=== PATIENT | male | born 1950 | race Caucasian/White ===

== ENCOUNTER 2024-05-15 13:12 | Emergency (ER) | payer MEDICARE, SELFPAY ==
[2024-05-15 13:31] VITALS: BP 168/97; PULSE 70; TEMP 36.8; O2SAT 94; BMI 24.4
[2024-05-15 15:16] LABS: Basophils Absolute Auto 0.1 10^3/uL (0.0-0.1); Basophils Percent Auto 1.2 % (0.2-2.0); Eosinophils Absolute Auto 0.2 10^3/uL (0.0-0.7); Eosinophils Percent Auto 2.3 % (0.9-7.0); Hemoglobin 12.5 g/dL (14.0-18.0); Immature Granulocytes Abs Auto 0.01 10^3/uL (0.00-0.03); Immature Granulocytes Pct Auto 0.2 % (0.0-0.5); Lymphocytes Absolute Auto 2.1 10^3/uL (1.2-3.8); Lymphocytes Percent Auto 32.3 % (20.5-60.0); Mean Corpuscular HGB Conc 33.8 g/dL (29.9-35.2); Mean Corpuscular Hemoglobin 32.6 pg (25.9-34.0); Mean Corpuscular Volume 96.4 fL (80.0-94.0); Mean Platelet Volume 10.3 fL (9.5-13.5); Monocytes Absolute Auto 0.5 10^3/uL (0.3-0.8); Monocytes Percent Auto 7.7 % (1.7-12.0); Neutrophils Absolute Auto 3.7 10^3/uL (1.4-6.5); Neutrophils Percent Auto 56.3 % (43.0-75.0); Platelet Count 270 10^3/uL (150-450); Red Blood Count 3.84 10^6/uL (4.70-6.10); Red Cell Distribution Width 14.6 % (11.0-15.0); White Blood Count 6.5 10^3/uL (4.0-11.0)
[2024-05-15 16:16] LABS: Alanine Aminotransferase 19 U/L (16-63); Albumin Globulin Ratio 0.8; Albumin Level 3.6 g/dL (3.4-5.0); Alkaline Phosphatase 155 U/L (46-116); Anion Gap 13.6; Aspartate Amino Transferase 21 U/L (15-37); Bilirubin Total 0.6 mg/dL (0.2-1.0); Calcium 9.3 mg/dL (8.5-10.1); Chloride 104 mmol/L (98-107); Estimated GFR (African America >60 (>=60); Estimated GFR (Non-African Ame >60 (>=60); Globulin 4.4 g/dL; Glucose 87 mg/dL (74-106); Potassium 4.6 mmol/L (3.5-5.1); Sodium 140 mmol/L (136-145)
--- NOTE | 2024-05-15 16:22 | CT_ITS ---
[address] [address] Patient Name: ROLDAN COTE MRN: [id number] date: 1950 Sex: M Assigned Patient Location: ER Current Patient Location: [facility] Accession/Order Number: [id number] Exam Date: 05/15/2024 16:42 Report Date: 05/15/2024 18:09 At the request of: MICHOACANO ESCOBAR Procedure: CT abdomen pelvis w con CT ABDOMEN AND PELVIS WITH CONTRAST: INDICATION: Rectal bleeding. COMPARISON: None. TECHNIQUE: Helical CT images of the abdomen and pelvis were obtained after the administration of intravenous contrast. Dose reduction techniques were achieved by using automated exposure control and/or adjustment of mA and/or kV according to patient size and/or use of iterative reconstruction technique. FINDINGS: The study is somewhat limited due to motion. LOWER CHEST: There is a 7 mm left lower lobe pulmonary nodule on image 4 series 3. There is mild bibasilar atelectasis and there is moderate cardiomegaly. There are mild interstitial lung abnormalities at the lung bases with possible mild fibrosis particularly in the lingula where there is also traction bronchiectasis. LIVER: Moderate diffuse fatty infiltration. GALLBLADDER AND BILIARY SYSTEM: Normal. SPLEEN: Normal. PANCREAS: Normal. ADRENAL GLANDS: Normal. KIDNEYS AND URETERS: Normal left kidney. Mild to moderate scarring in the lower pole of the right kidney anteriorly. VASCULATURE: Moderate atherosclerotic calcification of the aorta and iliac arteries. RETROPERITONEUM AND LYMPH NODES: Normal, with no lymphadenopathy. GASTROINTESTINAL TRACT/MESENTERY: Small hiatal hernia. The bowel loops are normal in caliber. There is mild diverticulosis in the sigmoid colon with no acute diverticulitis. There is evidence of abnormal enhancement and wall thickening in the right lateral rectal wall, image 117 series 3 and image 64 series 5 with a possible mass measuring approximately 2.6 x 3 x 1.8 cm. Normal mesentery/peritoneum. Normal appendix. BLADDER: Normal. REPRODUCTIVE SYSTEM: Normal prostate. BODY WALL: Normal. BONES: There are bulky anterior osteophytes in the lumbar spine and there are bridging anterior osteophytes in the thoracic spine consistent with DISH. There is no acute osseous abnormality. CT/CT abdomen pelvis w con IMPRESSION: 1. Findings suspicious for a rectal mass/possible malignancy. Recommend follow-up colonoscopy. 2. Cardiomegaly. 3. 7 mm left lower lobe pulmonary nodule. Interstitial lung abnormalities are also noted in the visualized lung bases. Recommend follow-up chest CT. 4. Small hiatal hernia. 5. Fatty liver. 6. Right renal cortical scarring. 7. Mild colonic diverticulosis. Electronically authenticated by: ONIEL BORJA Date: 05/15/2024 18:09
--- NOTE | 2024-05-15 16:23 | ED_ITS ---
HPI HPI - General Adult General Chief complaint: Abdominal Pain Stated complaint: BLOOD IN STOOL Time Seen by Provider: 05/15/24 14:50 Mode of arrival: walk-in Limitations: no limitations History of Present Illness HPI narrative: Patient is a 73-year-old male who presents to the emergency department for 2-day history of rectal bleeding. Patient's roommate apparently reported to a family member that he was bleeding out which concerned her to bring him to the ER. He is on Eliquis daily. He has an appointment tomorrow with his PCP. He has not had any fevers, chills, nausea, vomiting, abdominal pain. He has never had a colonoscopy. Related Data Previous Rx's ?Medication ?Instructions ?Recorded docusate sodium 100 mg capsule 100 mg PO BID #20 caps 05/15/24 (Colace) Allergies Allergy/AdvReac Type Severity Reaction Status Date / Time No Known Drug Allergies Allergy Verified 05/15/24 13:30 Opioid HPI Opioid Management Most Recent Opioid Data: No Data to Display Review of Systems ROS Constitutional Denies: fever or chills Ears, nose, mouth, and throat Denies: throat pain Cardiovascular Denies: chest pain Respiratory Denies: shortness of breath or cough Gastrointestinal Reports: blood in stool; Denies: abdominal pain, nausea, vomiting or diarrhea Musculoskeletal Denies: back pain Integumentary/Breast Denies: rash Neurological Denies: headache Hematologic/Lymphatic Reports: easy bruising and easy bleeding Exam Narrative Exam Narrative: Gen.: Awake, alert, in no distress Head: Normocephalic, atraumatic ENT: Moist mucous membranes Respiratory: No respiratory distress, lungs clear bilaterally Cardio: Regular rate and rhythm Gastrointestinal: Abdomen is soft, nondistended and nontender to palpation Rectal: Rectal exam performed with Cassandra Freed RN at bedside throughout the duration of the exam. Small external hemorrhoid noted with no active bleeding per rectum. Dried blood noted between the buttocks Extremities: Moves extremities equally Psych: Normal mood and affect Neuro: No focal neuro deficit Skin: Warm, dry, intact Constitutional Vital Signs, click to edit/add: Last Vital Signs Temp 98.2 F 05/15/24 13:31 Pulse 70 05/15/24 13:31 Resp 18 05/15/24 13:31 BP 168/97 H 05/15/24 13:31 Pulse Ox 94 L 05/15/24 13:31 O2 Del Method Room Air 05/15/24 13:31 Course Vital Signs Vital signs: Vital Signs Temperature 98.2 F 05/15/24 13:31 Pulse Rate 70 05/15/24 13:31 Respiratory Rate 18 05/15/24 13:31 Blood Pressure 168/97 H 05/15/24 13:31 Pulse Oximetry 94 L 05/15/24 13:31 Oxygen Delivery Method Room Air 05/15/24 13:31 Temperature 98.2 F 05/15/24 13:31 Pulse Rate 70 05/15/24 13:31 Respiratory Rate 18 05/15/24 13:31 Blood Pressure 168/97 H 05/15/24 13:31 Pulse Oximetry 94 L 05/15/24 13:31 Oxygen Delivery Method Room Air 05/15/24 13:31 Medical Decision Making MDM Narrative Medical decision making narrative: Patient with no complaints of abdominal pain, he is hemodynamically stable in the ER with a stable hemoglobin of 12.5. He was sent for CT of the abdomen and pelvis with IV contrast showing a 2.6 cm mass in the right lateral rectal wall which will require follow-up colonoscopy. I discussed this with Dr. Wakefield, patient does not require admission at this time. He has no massive hemorrhage in the emergency department. Patient can follow-up with his primary care provider tomorrow, follow-up with general s urgery after his appointment. He can have an outpatient colonoscopy discussed in the next several days with general surgery. Return to the ER if symptoms change or worsen. SUPERVISED APC VISIT, PHYSICIAN ATTESTATION: Based on the medical record the care appears appropriate. ? Medical Records Medical records reviewed: Yes I reviewed the patient's medical records Lab Data Lab results reviewed: Yes I reviewed the patient's lab results Labs: Lab Results 05/15/24 Range/Units 15:08 WBC 6.5 (4.0-11.0) 10^3/uL RBC 3.84 L (4.70-6.10) 10^6/uL Hgb 12.5 L (14.0-18.0) g/dL Hct 37.0 L (42.0-54.0) % MCV 96.4 H (80.0-94.0) fL MCH 32.6 (25.9-34.0) pg MCHC 33.8 (29.9-35.2) g/dL RDW 14.6 (11.0-15.0) % Plt Count 270 (150-450) 10^3/uL MPV 10.3 (9.5-13.5) fL Neut % (Auto) 56.3 (43.0-75.0) % Lymph % (Auto) 32.3 (20.5-60.0) % [place] % (Auto) 7.7 (1.7-12.0) % Eos % (Auto) 2.3 (0.9-7.0) % Baso % (Auto) 1.2 (0.2-2.0) % Neut # (Auto) 3.7 (1.4-6.5) 10^3/uL Lymph # (Auto) 2.1 (1.2-3.8) 10^3/uL [place] # (Auto) 0.5 (0.3-0.8) 10^3/uL Eos # (Auto) 0.2 (0.0-0.7) 10^3/uL Baso # (Auto) 0.1 (0.0-0.1) 10^3/uL Abs Immat Gran (auto) 0.01 (0.00-0.03) 10^3/uL Imm/Tot Granulo (auto) 0.2 (0.0-0.5) % PT 10.7 (9.0-11.6) sec INR 1.01 Sodium 140 (136-145) mmol/L Potassium 4.6 (3.5-5.1) mmol/L Chloride 104 (98-107) mmol/L Carbon Dioxide 27.0 (21.0-32.0) mmol/L Anion Gap 13.6 BUN 13.0 (7.0-18.0) mg/dL Creatinine 0.81 (0.70-1.30) mg/dL Est GFR ( Amer) >60 (>=60) Est GFR (Non-Af Amer) >60 (>=60) BUN/Creatinine Ratio 16.0 Glucose 87 (74-106) mg/dL Lactate 0.7 (0.4-2.0) mmol/L Calcium 9.3 (8.5-10.1) mg/dL Total Bilirubin 0.6 (0.2-1.0) mg/dL AST 21 (15-37) U/L ALT 19 (16-63) U/L Alkaline Phosphatase 155 H (46-116) U/L Total Protein 8.0 (6.4-8.2) g/dL Albumin 3.6 (3.4-5.0) g/dL Globulin 4.4 g/dL Albumin/Globulin Ratio 0.[address] scan - abdomen: Attestation: I have reviewed the pertinent imaging results. Radiologist's impression: ITS Impressions Abdomen/Pelvis CT 05/15/24 16:22 IMPRESSION: 1. Findings suspicious for a rectal mass/possible malignancy. Recommend follow-up colonoscopy. 2. Cardiomegaly. 3. 7 mm left lower lobe pulmonary nodule. Interstitial lung abnormalities are also noted in the visualized lung bases. Recommend follow-up chest CT. 4. Small hiatal hernia. 5. Fatty liver. 6. Right renal cortical scarring. 7. Mild colonic diverticulosis. Electronically authenticated by: ONIEL BORJA Date: 05/15/2024 17:53 Discharge Plan Discharge Stand Alone Forms: Portal Instructions Chief Complaint: Abdominal Pain Clinical Impression: Rectal bleeding, Rectal mass Patient Disposition: Home, Self-Care Time of Disposition Decision: 18:04 Condition: Good Prescriptions / Home Meds: New docusate sodium [Colace] 100 mg capsule 100 mg PO BID Qty: 20 0RF Print Language: Yi Instructions: Rectal Bleeding (ED) Additional Instructions: Please see your doctor tomorrow to resume your medications and call Dr. Wakefield's office to schedule with him for a colonoscopy -Please take the colace to avoid straining and constipation, this will reduce rectal bleeding -You may see rectal bleeding for the next several days, if you are bleeding so heavily that you feel lightheaded or dizzy or short of breath, please return to the emergency room Referrals: [facility] [place] [Primary Care Provider] - 1 week Armen Wakefield DO [Physician] - As soon as possible
[2024-05-15 16:36] LABS: INR 1.01; Prothrombin Time 10.7 sec (9.0-11.6)
[2024-05-15 16:43] LABS: Lactate/Lactic Acid 0.7 mmol/L (0.4-2.0)
== END 2024-05-15 18:17 | disposition home or self-care (01) ==
PROVIDERS: Physician Assistant; Emergency Provider Emergency Medicine
DX: K62.5 Hemorrhage of anus and rectum (principal); K62.9 Disease of anus and rectum, unspecified; Z79.01 Long term (current) use of anticoagulants
CPT/HCPCS: 36415; 74177; 80053; 83605; 85025; 85610; 99285; Q9967

== ENCOUNTER 2024-06-15 11:41 | Outpatient (OUT) | payer MEDICARE, SELFPAY | END 2024-06-15 11:42 | disposition home or self-care (01) | LOC: PST 11:41 | PROVIDERS: Visit Provider Surgery | DX: Z01.818 Encounter for other preprocedural examination (principal) ==

== ENCOUNTER 2024-06-20 06:21 | Day surgery (SDC) | payer MEDICARE, SELFPAY ==
--- OUTSIDE RECORDS SUMMARY | 2024-06-20 06:25 | XMS_ITS | CCD ---
Author Organization [facility] Care Team Providers Care Computer Equipment Repairer Name Role Phone KAMALJIT SILVA Primary Care Unavailable MISC, DOCTOR Primary Care Unavailable SAVANNAH HERNÁNDEZ Admitting Unavailable SAVANNAH HERNÁNDEZ Attending Unavailable BLAIR KOCH Consulting Unavailable GRAHAM LINN V Consulting Unavailable MARKERROHIT Consulting Unavailable SAVANNAH HERNÁNDEZ Consulting Unavailable GIBRAN WAY Consulting Unavailable Chelsy Rosales CNP Primary Care Provider NING CAMARENA Attending Unavailable Allergies Allergy Classification Reported Allergen(s) Allergy Type Date of Onset Reaction(s) Facility (1 source) -No Known Enviornmental Allergies; Translations: [-No Known Enviornmental Allergies] Allergy to substance 12-07-2018 [facility] Work Phone: Medications Current Medications Medication Drug Class(es) Dates Sig (Normalized) Sig (Original) amiodarone hydrochloride 200 mg oral tablet (1 source) Antiarrhythmic Start: 12-07-2018 Amiodarone HCl 200MG Oral Tablet 12/07/2018 Provider: fluticasone (1 source) Corticosteroid Start: 12-07-2018 [facility] Fluticasone Propionate 50MCG/ACT Nasal Suspension 12/07/2018 Provider: levETIRAcetam 500 mg oral tablet (1 source) Start: 12-07-2018 levETIRAcetam 500MG Oral Tablet 12/07/2018 Provider: Magnesium (1 source) Start: 12-07-2018 Magnesium 250MG Oral Tablet 12/07/2018 Provider: Problems Active Problems Problem Classification Problem Date Documented Date Episodic/Chronic Alcohol-related disorders (1 source) Alcohol abuse with intoxication, unspecified; Translations: [ALCOHOL ABUSE WITH INTOXICATION UNS] Onset: 0 Chronic Cardiac dysrhythmias (1 source) Cardiac dysrhythmias; Translations: [CHRONIC ATRIAL FIBRILLATION UNSPEC] Onset: 0 Disorders of lipid metabolism (1 source) Hyperlipidemia, unspecified; Translations: [HYPERLIPIDEMIA UNSPECIFIED] Onset: 0 Chronic Disorders of lipid metabolism (1 source) Pure hypercholesterolemia, unspecified; Translations: [PURE HYPERCHOLESTEROLEMIA UNSPEC] Onset: 0 Essential hypertension (1 source) Essential (primary) hypertension; Translations: [ESSENTIAL PRIMARY HYPERTENSION] Onset: 0 Chronic External cause codes: Fall (1 source) Unspecified fall, initial encounter; Translations: [UNSPECIFIED FALL INITIAL ENCOUNTER] Onset: 0 External cause codes: Unspecified (1 source) Blood alcohol level of 240 mg/100 ml or more; Translations: [BLOOD ALCOHOL LV 240 MG/100 ML/MORE] Onset: 0 Fracture of upper limb (1 source) Displaced fracture of lateral end of left clavicle, initial encounter for closed fracture; Translations: [DSPL FX LAT LT CLAV INITIAL CLOS FX] Onset: 0 Episodic Immunizations and screening for infectious disease (1 source) Encounter for immunization; Translations: [ENCOUNTER FOR IMMUNIZATION] Onset: 0 Episodic Other aftercare (1 source) jail (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; Translations: [CLINICAL REHABILITATION SPECIALIST CURRENT USE OF ASPIRIN] Onset: 0 Episodic Other aftercare (1 source) Other penitentiary (current) drug therapy; Translations: [OTH CLINICAL REHABILITATION SPECIALIST CURRENT DRUG THERAPY] Onset: 0 Episodic Other non-traumatic joint disorders (3 sources) Pain in left shoulder; Translations: [PAIN IN LEFT SHOULDER] Onset: 0 Episodic Other nutritional; endocrine; and metabolic disorders (1 source) Obesity, unspecified; Translations: [OBESITY UNSPECIFIED] Onset: 0 Chronic Other nutritional; endocrine; and metabolic disorders (1 source) Body mass index (BMI) 25.0-25.9, adult; Translations: [BODY MASS INDEX BMI 25.0-25.9 ADULT] Onset: 0 Episodic Superficial injury; contusion (1 source) Contusion of other part of head, initial encounter; Translations: [CONTUS OTH PRT HEAD INITIAL ENCNTR] Onset: 0 Episodic Past or Other Problems Problem Classification Problem Date Documented Da te Episodic/Chronic Other nutritional; endocrine; and metabolic disorders (1 source) Finding of body mass index; Translations: [Body mass index [BMI]] Onset: 12-07-2018 Episodic Results Test Name Value Interpretation Reference Range Facil ity CNOVon 06-16-2021 CNOV Office Visit (NREUS2) ROLDAN VELASQUEZ ([id number]) 1950 M Date Time Provider Department 06/16/21 4:30 PM JEAN CHRISTIAN [id number] During your visit today, we recorded the following information about you: Pulse Blood pressure Weight Height 113/minute 134/85 83.6 kg 1.778 m Jean Christian MD 06/24/2021 1:19 PM Signed [facility] - FOLLOW UP EVALUATION I had the pleasure of seeing Mr. Velasquez for follow up today. He is a 70 year old left-handed male with a history of tremors since 1949. He is seen with a sister. Subjective Previous Plan 07/23/2020- 61 year old year old man with with life-long history of alcoholism and psychiatric problems (generalized anxiety disorder) who is presenting for follow-up of tremor after a long hiatus. He is presenting because of his sister's (his only caregiver) insistence on seeking care. He continues to imbibe and he stopped sertraline 50 mg PO QD because of perceived sedation. He takes naltrexone rarely, as per his recollection. ? His action tremor is greatly augmented by anxiety/alcohol withdrawal. ? he had two episodes of LOC but without tonic-clonic movements/post-ictal confusion (syncopal episodes vs alcohol withdrawal seizures). ? I feel it is best to seek psychiatric care first for alcohol withdrawal under medical supervision and to address anxiety. I feel that his tremor should be re-evaluated once sober and I can possibly start treatment at that point if applicable. ? I emphasized follow-up with Dr. Nath and discussed possibility of [facility]patient [facility] admission for alcohol withdrawal. ? I provided him with phone number for [facility] support coordinator. he also had a chance to speak with Ms. Sage ([facility]NR social science analyst). ? Follow-up with me once he is sober and has adequate control of psychiatric symptoms. Interval History Patient reports doing well, still with tremor, worse some days than other days. Denies not being able to do things despite tremor. Had alcohol rehab for 10 days after last appointment. Doing better, cut down to 1 beer every couple days. Has dog now which makes him go on walks to [place] and less going to the bar Mood: Good! Denies RBD. Sense of smell is pretty good Constipation: occasionally Denies issues with thinking and memory. Lives by self. Manages own adls. Reports never having tried medications specifically to address tremors. Not currently on beat blockade. Does have hypertension. In addition, the following activities of daily living that may be affected by tremors were evaluated: Speaking: No Feeding: No Bringing Liquids to Mouth: No Hygiene: No Dressing: No Writing: No Working: No Depression: PQH-9 = 3 usually representing no significant (0-4) depression. Anxiety: JORDANA-7 = 2 usually representing no significant (0-4) anxiety. Finally, the following table shows the patient's overall global physical and mental health using the PROMIS scale: PROMIS-10 Office Visit from 06/16/2021 in [facility] Visit from 07/22/2020 in [facility] Global Physical Health T Score 57.7 44.9 Global Mental Health T Score 43.5 41.1 0-10 Standard Pain Scale 5 5 *PROMIS-10 scoring scale: mean = 50, over 50 is above average, under 50 is below average Movement Disorders Medications Schedule - as of the start of the visit: ALLERGIES No Known Allergies Current Outpatient Medications Medication Sig - Losartan-hydroCHLORO thiazide 100-12.5 mg per tablet Take 1 tablet by mouth once daily. - multivitamin/iron/fo lic acid (CENTRUM ORAL) Take by mouth. - aspirin, enteric coated (ASPIRIN, ENTERIC COATED) 81 mg EC tablet Take 81 mg by mouth. - atorvastatin (LIPITOR) 20 mg tablet Take 20 mg by mouth once daily. - DILT-XR 120 mg 24 hr capsule Take 120 mg by mouth once daily. - thiamine (VITAMIN B1) 100 mg tablet Take 100 mg by mouth once daily. - pantoprazole DR (PROTONIX) 40 mg tablet Take 40 mg by mouth once daily. - naltrexone HCl (NALTREXONE ORAL) Take 50 mg by mouth once daily. - vitamin B complex (B COMPLEX ORAL) Take by mouth once daily. - sertraline (ZOLOFT) 50 mg tablet Take 0.5 tablets by mouth once daily. - folic acid 0.8 mg cap Take by mouth. No current facility-administere d medications for this visit. Objective Vital Signs: BP 134/85 (BP Site: Left Arm, BP Position: Sitting, BP Cuff Size: Regular Adult) Pulse 113 Ht 177.8 cm (5' 10 ) Wt 83.6 kg (184 lb 6.4 oz) SpO2 99% BMI 26.46 kg/m? General Physical Examination: General appearance: Awake, alert, interactive, no acute distress, good nutritional status, normal development, well-groomed Skin: Rash: absent Pigmentation: absent HEENT: Head: normocephalic, no dysmorphism Eyes: normal Oropharynx: normal Neck: Carotid bruit: absent Movements: free Lymphadenopathy: absent Extre (more content not included)... Normal [facility] CT CSPINE WO CONon 0 CT CSPINE WO CON EXAMINATION: CT CSPINE WO CON HISTORY: Head injury. COMPARISON: CT cervical spine from January 20, 2017. TECHNIQUE: CT Cervical spine without IV contrast. Coronal and sagittal reformations were performed. Dose reduction techniques were achieved by using automated exposure control and/or adjustment of mA and/or kV according to patient size and/or use of iterative reconstruction technique. FINDINGS: No acute fracture or traumatic subluxation within the cervical spine. The atlanto-occipital interval is normal. The facets are anatomically aligned. No prevertebral soft tissue swelling is present. There are degenerative endplate changes, anterior-posterior spondylitic ridging and facet arthropathy. The lung apices are clear. IMPRESSION: No acute fracture or traumatic subluxation within the cervical spine. Electronically authenticated by: GIBRAN WAY Date: 2020-06-04 23:44 Normal [facility] CT HEAD WO CONon 06-05-2020 CT HEAD WO CON EXAMINATION: CT HEAD WO CON HISTORY: UNSPECIFIED INJURY OF HEAD, INITIAL ENCOUNTER COMPARISON: 01/20/2017 TECHNIQUE: Axial CT images were created with IV contrast. Dose reduction techniques were achieved by using automated exposure control and/or adjustment of mA and/or kV according to patient size and/or use of iterative reconstruction technique. FINDINGS: BRAIN: Age-appropriate atrophy is present, without visible acute hemorrhage or lesion. CSF SPACES: No hydrocephalus, subarachnoid hemorrhage, or mass. Appropriate for age. SKULL: No fracture, mass, or other significant visible lesion. SINUSES: No significant mucosal thickening or fluid on the limited views. ORBITS: No appreciable abnormality on the limited views. OTHER: Left frontal extracranial hematoma IMPRESSION: No acute intracranial abnormality Left frontal extracranial hematoma Electronically authenticated by: GRAHAM LINN Date: 2020-06-04 22:07 Normal [facility] XR CHEST 1 Von 06-05-2020 XR CHEST 1 V EXAMINATION: XR CHEST 1 V HISTORY: Altered mental status COMPARISON: 05/17/2019 TECHNIQUE: Portable FINDINGS: LUNGS: Low lung volumes. No new focal parenchymal opacities. VASCULATURE: No increased pulmonary vasculature. PLEURA: No pneumothorax, effusion, or pleural thickening. CARDIAC: No cardiomegaly or cardiac silhouette abnormality. MEDIASTINUM: Prominent mediastinum BONES: Moderate spondylosis OTHER: Negative. IMPRESSION: Prominent mediastinum possibly related to technique and rotation. Consider PA and lateral for further evaluation Electronically authenticated by: GRAHAM LINN Date: 2020-06-04 22:13 Normal [facility] XR PELVIS 1_2 VIEWSon 2019 XR PELVIS 1_2 VIEWS EXAMINATION: XR PELVIS 1_2 VIEWS HISTORY: Altered mental status COMPARISON: No relevant comparison available. FINDINGS: BOWEL GAS PATTERN: No abnormal dilation or deviation. CALCIFICATIONS: None significant. OTHER: No acute fracture. Mild bilateral hip osteoarthropathy. Mild spondylosis of the spine IMPRESSION: No definite acute fracture Electronically authenticated by: GRAHAM LINN Date: 2020-06-04 22:16 Normal [facility] XR SHOULDER LT 2V or >on XR SHOULDER LT 2V or > PROCEDURE: XR SHOULDER LT 2V or > COMPARISON: Chest x-ray 05/17/2019 HISTORY: Altered mental status FINDINGS: BONES:Lucency through the distal clavicle consistent with an acute fracture. Underlying chronic fracture of the left mid clavicle, stable. No dislocation. SOFT TISSUES:Negative. No visible soft tissue swelling. EFFUSION:None visible. OTHER: Negative. IMPRESSION: Acute fracture of the distal left clavicle Electronically authenticated by: GRAHAM LINN Date: 2020-06-04 22:15 Normal [facility] CARDIAC SHANE ADMITon 020 CK [Catalytic activity/Vol] 84 U/L Normal 55-170 [facility] Comment on above: Performed By: #### C HARINI WEST, JESSICA #### [facility] [address] [place] [address] Marielena Keller CK.MB [Mass/Vol] 1.08 ng/mL Normal <=2.37 [facility] Comment on above: Performed By: #### C HARINI WEST CMADM #### [facility] [address] [place] [address] Marielenaemma Keller INR Coag (Bld) [Relative time] SEE BELOW Normal [facility] Comment on above: Result Comment: <0.0 34 ng/ml NEGATIVE 0.034-0.119 INDETERMINATE 0.120 AMI CUT OFF Performed By: #### C HARINI WEST, CMAKODAK #### [facility] [address] [place] [address] Marielena Arianna KWABENA 58.0 ng/mL Normal <=121.0 [facility] Comment on above: Performed By: #### C HARINI WEST, CMAKODAK #### [facility] [address] [place], [place] [id number] Marielena Arianna TROP <0.012 Normal <=0.034 [facility] Comment on above: Performed By: #### C HARINI WEST, CMAKODAK #### [facility] [address] [place], [place] [id number] Marielena Arianna CBC AUTO DIFFon 06-04-2020 Basophils (Bld) [#/Vol] 0.1 103/ul Normal 0.0-0.1 [facility] Comment on above: Performed By: #### C BC #### [facility] [address] [place] [address] Marielena Arianna Basophils/100 WBC (Bld) 1.5 % Normal 0.2-2.0 [facility] Comment on above: Performed By: #### C BC #### [facility] [address] [id number] Marielena Arianna Eosinophils (Bld) [#/Vol] 0.1 103/ul Normal 0.0-0.7 [facility] Comment on above: Performed By: #### C BC #### [facility] [address] [place], [place] [id number] Marielena Arianna Eosinophils/100 WBC (Bld) 2.6 % Normal 0.9-7.0 [facility] Comment on above: Performed By: #### C BC #### [facility] [address] [place], [place] [id number] Marielena Arianna Erythrocyte distribution width (RBC) [Ratio] 13.3 % Normal 11.0-15.0 [facility] Comment on above: Performed By: #### C BC #### [facility] [address] [place], [place] [id number] Marielena Arianna Hematocrit (Bld) [Volume fraction] 39.5 % Critically low 42.0-54.0 [facility] Comment on above: Performed By: #### C BC #### [facility] [address] [place], [place] [id number] Marielena Arianna Hemoglobin (Bld) [Mass/Vol] 13.3 g/dL Critically low 14.0-18.0 [facility] Comment on above: Performed By: #### C BC #### [facility] [address] [place], [place] [address] Marielena Arianna IG # 0.02 10e3/ul Normal 0.00-0.03 [facility] Comment on above: Performed By: #### C BC #### [facility] [address] [place] [address] Marielena Arianna IG % 0.4 % Normal 0.0-0.5 [facility] Comment on above: Performed By: #### C BC #### [facility] [address] [place], [place] [id number] Marielena Arianna Lymphocytes (Bld) [#/Vol] 1.7 103/ul Normal 1.2-3.8 [facility] Comment on above: Performed By: #### C BC #### [facility] [address] [place], [place] [address] Marielena Arianna Lymphocytes/100 WBC (Bld) 38.0 % Normal 20.5-60.0 [facility] Comment on above: Performed By: #### C BC #### [facility] [address] [place], [place] [address] Marielena Arianna MANUAL DIFF REQ NO Normal [facility] Comment on above: Performed By: #### C BC #### [facility] [address] [place], [place] [address] Marielena Arianna MCH (RBC) [Entitic mass] 32.1 pg Normal 25.9-34.0 [facility] Comment on above: Performed By: #### C BC #### [facility] [address] [place] [address] Marielena Arianna MCHC (RBC) [Mass/Vol] 33.7 g/dL Normal 29.9-35.2 [facility] Comment on above: Performed By: #### C BC #### [facility] [address] [place] [address] Marielena Arianna MCV (RBC) [Entitic vol] 95.4 fL Critically high 80.0-94.0 [facility] Comment on above: Performed By: #### C BC #### [facility] [address] [place] [address] Marielena Arianna Monocytes (Bld) [#/Vol] 0.6 103/ul Normal 0.3-0.8 [facility] Comment on above: Performed By: #### C BC #### [facility] [address] [place] [address] Marielena Arianna Monocytes/100 WBC (Bld) 13.7 % Critically high 1.7-12.0 [facility] Comment on above: Performed By: #### C BC #### [facility] [address] [place] [address] Marielena Arianna Neutrophils (Bld) [#/Vol] 2.0 103/ul Normal 1.4-6.5 [facility] Comment on above: Performed By: #### C BC #### [facility] [address] [place], [place] [id number] Marielena Keller Neutrophils/100 WBC (Bld) 43.8 % Normal 43.0-75.0 [facility] Comment on above: Performed By: #### C BC #### [facility] [address] [place], [place] [id number] Marielenaemma Keller Platelet mean volume (Bld) [Entitic vol] 10.4 fL Normal 9.5-13.5 [facility] Comment on above: Performed By: #### C BC #### [facility] [address] [place], [place] [phone] Marielenaemma Keller Platelets (Bld) [#/Vol] 141 103/ul Critically low 150-450 [facility] Comment on above: Performed By: #### C BC #### [facility] [address] [place], [place] [phone] Marielenaemma Keller RBC (Bld) [#/Vol] 4.14 106/ul Critically low 4.70-6.10 [facility] Comment on above: Performed By: #### C BC #### [facility] [address] [place], [place] [address] Marielenaemma Keller WBC (Bld) [#/Vol] 4.5 103/ul Normal 4.0-11.0 [facility] Comment on above: Performed By: #### C BC #### [facility] [address] [place], [place] [id number] Marielena Arianna ETHANOL (BLD ALC)on 06-04-20 20 Ethanol [Mass/Vol] NOTE: 80 mg/dl is the legal limit for a blood alcohol level Normal [facility] Comment on above: Performed By: #### C HARINI WEST CMADM #### [facility] [address] [place], [place] [phone] Marielena Arianna Ethanol [Mass/Vol] 347 mg/dL Normal [facility] Comment on above: Performed By: #### C HARINI WEST CMAKODAK #### [facility] [address] [place], [place] [id number] Marielena Keller PROF 14(COMP METB)on 020 Albumin [Mass/Vol] 3.5 g/dL Normal 3.5-5.0 [facility] Comment on above: Performed By: #### C HARINI WEST CMADM #### [facility] [address] [id number] Marielena Keller Albumin/Globulin [Mass ratio] 0.9 {ratio} Normal [facility] Comment on above: Performed By: #### C HARINI WEST CMADM #### [facility] [address] [address] Marielena Arianna ALP [Catalytic activity/Vol] 54 U/L Normal 38-126 [facility] Comment on above: Performed By: #### C HARINI WEST CMADM #### [facility] [address] [address] Marielena Arianna ALT [Catalytic activity/Vol] 109 U/L Critically high 21-72 [facility] Comment on above: Performed By: #### C HARINI WEST CMADM #### [facility] [address] [address] Marielena Arianna Anion gap [Moles/Vol] 14.5 mmol/L Normal [facility] Comment on above: Performed By: #### C HARINI WEST CMADM #### [facility] [address] [id number] Marielena Arianna AST [Catalytic activity/Vol] 128 U/L Critically high 17-59 [facility] Comment on above: Performed By: #### C HARINI WEST CMADM #### [facility] [address] [address] Marielena Arianna Bilirubin Ql (U) 0.3 mg/dL Normal 0.2-1.3 [facility] Comment on above: Performed By: #### C HARINI WEST CMADM #### [facility] [address] [phone] Marielena Arianna Calcium [Mass/Vol] 8.5 mg/dL Normal 8.4-10.2 [facility] Comment on above: Performed By: #### C HARINI WEST CMADM #### [facility] [address] [address] Marielena Arianna Chloride [Moles/Vol] 102 mmol/L Normal 98-107 [facility] Comment on above: Performed By: #### C HARINI WEST, CMADM #### [facility] [address] [address] Marielena Arianna CO2 [Moles/Vol] 25.2 mmol/L Normal 22.0-30.0 [facility] Comment on above: Performed By: #### C HARINI WEST, CMADM #### [facility] [address] [address] Marielena Arianna Creatinine [Mass/Vol] 0.87 mg/dL Normal 0.66-1.25 [facility] Comment on above: Performed By: #### C HARINI WEST, CMADM #### [facility] [address] [place] [address] Marielena Arianna EGFR-AF AUSTRALIAN >60 Normal >=60 [facility] Comment on above: Performed By: #### C HARINI WEST, CMADM #### [facility] [address] [place] [address] Marielena Arianna EGFR-NON AF AUSTRALIAN >60 Normal >=60 [facility] Comment on above: Performed By: #### C HARINI WEST, CMADM #### [facility] [address] [place] [address] Marielena Arianna Globulin (S) [Mass/Vol] 3.7 g/dL Normal [facility] Comment on above: Performed By: #### C HARINI WEST, CMADM #### [facility] [address] [place] [address] Marielena Arianna Glucose [Mass/Vol] 107 mg/dL Critically high 74-106 [facility] Comment on above: Performed By: #### C HARINI WEST, CMADM #### [facility] [address] [place] [address] Marielena Arianna Potassium [Moles/Vol] 3.7 mmol/L Normal 3.4-5.0 [facility] Comment on above: Performed By: #### C HARINI WEST, CMADM #### [facility] [address] [place], [place] [address] Marielena Arianna Protein [Mass/Vol] 7.2 g/dL Normal 6.1-8.2 [facility] Comment on above: Performed By: #### C MP, ETH, CMADM #### [facility] [address] [place], [place] [address] Marielena Arianna Sodium [Moles/Vol] 138 mmol/L Normal 137-145 [facility] Comment on above: Performed By: #### C MP, ETH, CMADM #### [facility] [address] [place], [place] [address] Marielena Arianna Urea nitrogen [Mass/Vol] 11.0 mg/dL Normal 9.0-20.0 [facility] Comment on above: Performed By: #### C MP, ETH, CMADM #### [facility] [address] [place], [place] [address] Marielena Arianna Urea nitrogen/Creatinine [Mass ratio] 12.6 mg/mg Normal [facility] Comment on above: Performed By: #### C MP, ETH, CMADM #### [facility] [address] [place], [place] [address] Marielena Arianna Vital Signs Date Time Vital Sign Value Performing Clinician Mohit amado 12-07-2018 16:37-0400 Body height 177.8 cm Chelsy Rosales SONIYA Work Phone: [facility] Work Phone: 12-07-2018 16:37-0400 Body mass index (BMI) [Ratio] 25.9 kg/m2 Chelsy Rosales SONIYA Work Phone: [facility] Work Phone: 12-07-2018 16:37-0400 Body surface area Derived from formula 2 m2 Chelsy Conniearcenio BYRNES Work Phone: [facility] Work Phone: 12-07-2018 16:37-0400 Body temperature 96.6 [degF] Chelsy Sanduskyarcenio BYRNES Work Phone: [facility] Work Phone: 12-07-2018 16:37-0400 Body weight 81.76 kg Chelsy Rosales CNP Work Phone: [facility] Work Phone: 12-07-2018 16:37-0400 Diastolic blood pressure 80 mm[Hg] Chelsy Rosales CNP Work Phone: [facility] Work Phone: 12-07-2018 16:37-0400 Heart rate 54 /min Chelsy Rosales CNP Work Phone: [facility] Work Phone: 12-07-2018 16:37-0400 SaO2% (BldA) [Mass fraction] 98 % Chelsy Rosales CNP Work Phone: [facility] Work Phone: 12-07-2018 16:37-0400 Systolic blood pressure 130 mm[Hg] Chelsy Rosales CNP Work Phone: [facility] Work Phone: Encounters Encounter Date Encounter Type Care Provider Facility Start: 06-05-2024 End: 06-05-2024 ambulatory [facility] CAMARENA Not Available Start: 06-05-2020 End: 06-05-2020 Patient encounter procedure [facility] Facility: Start: 04-25-2019 End: 04-26-2019 Emergency department patient visit [facility] Start: 12-07-2018 End: 12-07-2018 FQ visit new patient Wendi Katz [employer] DRIVER/GUIDE Work Phone: [facility] Work Phone: Procedures Date Procedure Procedure Detail Performing Clinician Start: 12-07-2018 HYPERTENSION (SYSTEMIC) Chelsy Rosales CNP Work Phone: Start: 12-07-2018 Operative procedure on ankle Chelsy Rosales CNP Work Phone: Start: 12-07-2018 Operative procedure on hand Chelsy Rosales CNP Work Phone: Start: 12-07-2018 Surgical procedure Levar Rosales [employer] DRIVER/GUIDE Work Phone: Payers Date Payer Category Payer Medicare [id number] 1961 Unknown [id number] 1950 Unknown [id number] 1950 Unknown [id number] 1950 Unknown [id number] Medicare 1 - Medicare [facility] PPS 2V [id number] Social History Date Type Detail Facility Assertion Finding of alcoh ol intake (finding) [facility] Work Phone: Assertion Gender identity finding (finding) [facility] Work Phone: Assertion Heterosexual (finding) [facility] [employer] [facility] Work Phone: Assertion Recovering alcoholic [facility] Work Phone: Assertion Finding of sexua l orientation (finding) [facility] Work Phone: Tobacco smoking status Unknown if ever smoked [facility] Work Phone: NEGATED: Highlighted row Assertion Exposure to pollution (event) [facility] Work Phone: NEGATED: Highlighted row Assertion Tobacco user (finding) [facility] Work Phone: NEGATED: Highlighted row Assertion Finding relating to drug misuse behavior (finding) [facility] Work Phone: Progress note 06-16-2021 Note Date & Type Note Facility 06-16-2021 Note HNO ID: [id number] Author: Jean Christian MD Service: ? Author Type: Physician Type: Progress Notes Filed: 06/24/2021 1:19 PM Note Text: [facility] - FOLLOW UP EVALUATION I had the pleasure of seeing Mr. Velasquez for follow up today. He is a 70 year old left-handed male with a history of tremors since 1949. He is seen with a sister. Subjective Previous Plan 07/23/2020- 61 year old year old man with with life-long history of alcoholism and psychiatric problems (generalized anxiety disorder) who is presenting for follow-up of tremor after a long hiatus. He is presenting because of his sister's (his only caregiver) insistence on seeking care. He continues to imbibe and he stopped sertraline 50 mg PO QD because of perceived sedation. He takes naltrexone rarely, as per his recollection. ? His action tremor is greatly augmented by anxiety/alcohol withdrawal. ? he had two episodes of LOC but without tonic-clonic movements/post-ictal confusion (syncopal episodes vs alcohol withdrawal seizures). ? I feel it is best to seek psychiatric care first for alcohol withdrawal under medical supervision and to address anxiety. I feel that his tremor should be re-evaluated once sober and I can possibly start treatment at that point if applicable. ? I emphasized follow-up with Dr. Nath and discussed possibility of in-patient [facility] admission for alcohol withdrawal. ? I provided him with phone number for [facility] support coordinator. he also had a chance to speak with Ms. Sage ([facility] social science analyst). ? Follow-up with me once he is sober and has adequate control of psychiatric symptoms. Interval History Patient reports doing well, still with tremor, worse some days than other days. Denies not being able to do things despite tremor. Had alcohol rehab for 10 days after last appointment. Doing better, cut down to 1 beer every couple days. Has dog now which makes him go on walks to [place] [employer] and less going to the bar Mood: Good! Denies RBD. Sense of smell is pretty good Constipation: occasionally Denies issues with thinking and memory. Lives by self. Manages own adls. Reports never having tried medications specifically to address tremors. Not currently on beat blockade. Does have hypertension. In addition, the following activities of daily living that may be affected by tremors were evaluated: Speaking: No Feeding: No Bringing Liquids to Mouth: No Hygiene: No Dressing: No Writing: No Working: No Depression: PQH-9 = 3 usually representing no significant (0-4) depression. Anxiety: JORDANA-7 = 2 usually representing no significant (0-4) anxiety. Finally, the following table shows the patient's overall global physical and mental health using the PROMIS scale: PROMIS-10 Office Visit from 06/16/2021 in [facility] Visit from 07/22/2020 in [facility] Global Physical Health T Score 57.7 44.9 Global Mental Health T Score 43.5 41.1 0-10 Standard Pain Scale 5 5 *PROMIS-10 scoring scale: mean = 50, over 50 is above average, under 50 is below average Movement Disorders Medications Schedule - as of the start of the visit: ALLERGIES No Known Allergies Current Outpatient Medications Medication Sig - Losartan-hydroCHLOROthiazide 100-12.5 mg per tablet Take 1 tablet by mouth once daily. - multivitamin/iron/folic acid (CENTRUM ORAL) Take by mouth. - aspirin, enteric coated (ASPIRIN, ENTERIC COATED) 81 mg EC tablet Take 81 mg by mouth. - atorvastatin (LIPITOR) 20 mg tablet Take 20 mg by mouth once daily. - DILT-XR 120 mg 24 hr capsule Take 120 mg by mouth once daily. - thiamine (VITAMIN B1) 100 mg tablet Take 100 mg by mouth once daily. - pantoprazole DR (PROTONIX) 40 mg tablet Take 40 mg by mouth once daily. - naltrexone HCl (NALTREXONE ORAL) Take 50 mg by mouth once daily. - vitamin B complex (B COMPLEX ORAL) Take by mouth once daily. - sertraline (ZOLOFT) 50 mg tablet Take 0.5 tablets by mouth once daily. - folic acid 0.8 mg cap Take by mouth. No current facility-administered medications for this visit. Objective Vital Signs: BP 134/85 (BP Site: Left Arm, BP Position: Sitting, BP Cuff Size: Regular Adult) Pulse 113 Ht 177.8 cm (5' 10 ) Wt 83.6 kg (184 lb 6.4 oz) SpO2 99% BMI 26.46 kg/m? General Physical Examination: General appearance: Awake, alert, interactive, no acute distress, good nutritional status, normal development, well-groomed Skin: Rash: absent Pigmentation: absent HEENT: Head: normocephalic, no dysmorphism Eyes: normal Oropharynx: normal Neck: Carotid bruit: absent Movements: free Lymphadenopathy: absent Extremities: Deformity/contracture: absent Distal pulses: present Edema: absent Trophic change: absent Spine: Deformity: absent Heart: Regular S1 S2 normal Lungs: Clear to auscultation Abdomen: Soft, nontender General Neurological Examination: (more content not included)... [facility] Evaluation note Note Date & Type Note Facility Evaluation note Assessments not supported for this document typeNo Assessments Recorded [facility] Work Phone: History of Present illness Narrative Note Date & Type Note Facility History of Present illness Narrative History of Present Illness not supported for this document typeNo History of Present Illness Recorded [facility] Work Phone: Instructions Note Date & Type Note Facility Instructions Instructions not supported for this document typeNo Instructions Recorded [facility] Work Phone: Patient problem outcome Narrative Note Date & Type Note Facility Patient problem outcome Narrative Includes: Evaluations & Outcomes for active GoalsNo Outcomes Recorded [facility] Work Phone: Review of systems Narrative - Reported Note Date & Type Note Facility Review of systems Narrative - Reported Review of Systems not supported for this document typeNo Review of Systems Recorded [facility] Work Phone: Summary Purpose Family History No Family History Records Found Description Last Updated Maternal history of type 2 diabetes ria itus 12/07/2018 Advance Directives No Advanced Directives Records FoundNo Advanced Directives Records FoundNo Advanced Directives Records Found Includes: Current Advance Directives No Advance Directives RecordedNo Advanced Directives Records Found Physical Exam Physical Exam not supported for this document type No Physical Exam Recorded Additional Source Comments (unrecognized sect ion and content) No Status Records FoundNo Status Records FoundNo Status Records FoundNo Status Records Found INFORMATION SOURCE (unrecogn ized section and content) DATE CREATED AUTHOR 04/27/2019 [facility] DATE CREATED AUTHOR AUTHOR'S ORGANIZ ATION 06/12/2020 [facility] DATE CREATED AUTHOR AUTHOR'S ORGANIZ ATION 11/05/2021 [facility] DATE CREATED AUTHOR AUTHOR'S ORGANIZ ATION 06/06/2024 [facility] EPIC FOR RECORDS PERTAINING TO PATIENTS WHO ARE OR HAVE BEEN ENROLLED IN A CHEMICAL DEPENDENCY/SUBSTANCEABUSE PROGRAM, SOME INFORMATION MAY BE OMITTED. This clinical summary was aggregated from multiple sources. Caution should be exercised in using it in the provision of clinical care. This summary normalizes information from multiple sources, and as a consequence, information in this document may materially change the coding, format and clinical context of patient data. In addition, data may be omitted in some cases. CLINICAL DECISIONS SHOULD BE BASED ON THE PRIMARY CLINICAL RECORDS. [facility] [employer] [facility]. provides no warranty or guarantee of the accuracy or completeness of information in this document.
[2024-06-20 07:00] VITALS: BP 177/94; PULSE 76; TEMP 35.9; O2SAT 98; BMI 31.9
[2024-06-20] MEDS: LACTATED RINGER'S SOLUTION 1,000 ML 50 ML IV (07:19)
[2024-06-20 08:30] VITALS: BP 123/83; PULSE 87; TEMP 36.2; O2SAT 97
--- NOTE | 2024-06-20 08:40 | W.PM.PROCNOT ---
Date of procedure: 06/20/24 Pre-op diagnosis: change in bowel habits, blood per rectum Post-op diagnosis: other (rectal mass at approx 10-12cm from anal verge, sigmoid diverticulosis ) Procedure: Previous colonoscopy: never procedure: diagnostic colonoscopy, rectal mass biopsy The patient was given IV conscious sedation.? The patient's SPO2 remained above 90% throughout the procedure. The colonoscope was inserted per rectum and advanced under direct vision to the cecum without difficulty.? The prep was good.? Findings: Terminal ileum os: normal Cecum/Ascending colon: normal Transverse colon: normal Descending/Sigmoid colon: sigmoid diverticulosis Rectum/Anus: examined in normal and retroflexed positions, large 2cm flat mass with friable edges and areas of bleeding, cold forcep biopsies taken in multiple spots on the lesion, approx 10-12cm from anal verge Withdrawal Time was (minutes): 15 The colon was decompressed and the scope was removed.? The patient tolerated the procedure well. Recommendations/Plan: 1.? Lifestyle and dietary modifications as discussed 2.? F/U Biopsies 3.? F/U in 10 days in office to discuss surgical needs for rectal mass 4.? Discussed with the family Anesthesia: MAC Surgeon: Armen Wakefield Estimated blood loss (mL): 5 Pathology: other (rectal mass biopsies) Condition: stable Disposition: PACU
[2024-06-20 08:45] VITALS: BP 152/84; PULSE 71; O2SAT 95
[2024-06-20 08:59] VITALS: BP 143/76; PULSE 75; O2SAT 98
== END 2024-06-20 09:00 | disposition home or self-care (01) ==
PROVIDERS: Visit Provider Surgery
PROC: (CPT 45380; principal; 2024-06-20 07:55)
DX: C20 Malignant neoplasm of rectum (principal); R19.4 Change in bowel habit; K62.5 Hemorrhage of anus and rectum; K57.30 Diverticulosis of large intestine without perforation or abscess without bleeding; Z79.01 Long term (current) use of anticoagulants; I48.91 Unspecified atrial fibrillation; E78.5 Hyperlipidemia, unspecified; I10 Essential (primary) hypertension
CPT/HCPCS: 45380; 88305; J2704

== ENCOUNTER 2024-07-11 10:36 | Outpatient (OUT) | payer MEDICARE, SELFPAY ==
--- OUTSIDE RECORDS SUMMARY | 2024-07-11 10:48 | XMS_ITS | CCD ---
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 Role Phone KAMALJIT SILVA Primary Care Unavailable MISC, DOCTOR Primary Care Unavailable SAVANNAH HERNÁNDEZ Admitting Unavailable SAVANNAH HERNÁNDEZ Attending Unavailable BLAIR KOCH Consulting Unavailable GRAHAM LINN V Consulting Unavailable MARKER, ROHIT Consulting Unavailable SAVANNAH HERNÁNDEZ Consulting Unavailable SAMARTINE GIBRAN Consulting Unavailable Chelsy Rosales CNP Primary Care Provider DO Ning Wakefield Attending Provider Ning Wakefield Attending Unavailable Ning Wakefield Admitting Unavailable NING WAKEFIELD Attending Unavailable NING WAKEFIELD Attending Unavailable Phil MINAYA, [facility] Primary Care Provide r CLEM GALLARDO Attending Unavailable NING WAKEFIELD Referring Unavailable Allergies Allergy Classification Reported Allergen(s) Allergy Type Date of Onset Reaction(s) Facility (1 source) -No Known Enviornmental Allergies; Translations: [-No Known Enviornmental Allergies] Allergy to substance 12-07-2018 [facility] Work Phone: Medications Current Medications Medication Drug Class(es) Dates Sig (Normalized) Sig (Original) acetaminophen 325 mg oral tablet (1 source) Start: 7 take 650 mg by mouth every six hours Acetaminophen Active 650 MG PO Q6H 100 30 July 08, 2017 12:00am amiodarone hydrochloride 200 mg oral tablet (2 sources) Antiarrhythmic Start: 7 Amiodarone HCl 200MG Oral Tablet 12/07/2018 Provider: apixaban 5 mg oral tablet (3 sources) Factor Xa Inhibitor take 1 tablet by mouth in the morning Eliquis 5 MG tablet Take 5 mg by mouth in the morning and 5 mg before bedtime. Active ascorbic acid 500 mg oral tablet (1 source) Vitamin C Start: 7 take 1 tablet by mouth twice daily at mealtime Ascorbic Acid (Vitamin C) (Vitamin C) 500 mg Tablet Active 500 MG PO Twice daily with meals 60 July 08, 2017 12:00am atorvastatin 20 mg oral tablet (3 sources) HMG-CoA Reductase Inhibitor take 2 tablets by mouth once daily atorvastatin (Lipitor) 20 MG tablet Take 40 mg by mouth Daily Active calcium carbonate 1250 mg / cholecalciferol 200 unt oral tablet (1 source) Vitamin D Start: 7 take 1 tablet by mouth once at mealtime Calcium Carbonate-Vitamin D3 (Oyster Shell Calcium-Vit D3) 500 mg(1,250mg) -200 unit Tablet Active 1 TAB PO 3x/Day with meals 90 July 08, 2017 12:00am 24 hr dilTIAZem hydrochloride 120 mg extended release oral capsule (3 sources) Calcium Channel Elly Start: 3 take 1 capsule by mouth once daily, then take 1 capsule by mouth every twenty-four hours Cardizem CD 120 MG 24 hr capsule Take 120 mg by mouth Daily 06/29/2023 Active docusate sodium 100 mg oral capsule (3 sources) Start: 4 take 1 capsule by mouth in the morning docusate sodium (Colace) 100 MG capsule Take 100 mg by mouth in the morning and 100 mg before bedtime. 05/15/2024 Active fluticasone (1 source) Corticosteroid Start: 9 [facility] Fluticasone Propionate 50MCG/ACT Nasal Suspension 12/07/2018 Provider: folic acid 1 mg oral tablet (1 source) Start: 7 take 1 mg by mouth once daily Folic Acid Active 1 MG PO Daily 60 July 08, 2017 12:00am hydroCHLOROthiazide 12.5 mg / losartan potassium 100 mg oral tablet (3 sources) Thiazide Diuretic, Angiotensin 2 Receptor Elly take 1 tablet by mouth once daily losartan-hydroCHL OROthiazide (Hyzaar) 100-12.5 MG tablet Take 1 tablet by mouth Daily Active levETIRAcetam 500 mg oral tablet (1 source) Start: 9 levETIRAcetam 500MG Oral Tablet 12/07/2018 Provider: Magnesium (1 source) Start: 9 Magnesium 250MG Oral Tablet 12/07/2018 Provider: magnesium oxide 400 mg oral tablet (1 source) Start: 7 take 400 mg by mouth twice daily Magnesium Oxide Active 400 MG PO Twice daily 60 July 08, 2017 12:00am Multivitamin With Folic Acid (Thera) 400 mcg Tablet (1 source) Start: 7 take 1 tablet by mouth once daily Multivitamin With Folic Acid (Thera) 400 mcg Tablet Active 1 TAB PO Daily 30 July 08, 2017 12:00am Dibble (No Known Home Meds) (1 source) Start: 7 Dibble (No Known Home Meds) Active June 29, 2017 12:00am thiamine 100 mg oral tablet (1 source) Start: 7 take 1 tablet by mouth twice daily Thiamine Hcl (Vitamin B1) (Vitamin B-1) 100 mg Tablet Active 100 MG PO Twice daily 60 July 08, 2017 12:00am Problems Active Problems Problem Classification Problem Date Documented Date Episodic/Chronic Acute cerebrovascular disease (2 sources) Hemorrhage into subarachnoid space of neuraxis; Translations: [Nontraumatic subarachnoid hemorrhage, unspecified] 06-17-2017 Chronic Alcohol-related disorders (3 sources) Alcohol abuse with intoxication, unspecified; Translations: [Alcohol withdrawal delirium] Onset: 0 06-17-2017 Chronic Cancer of rectum and anus (2 sources) Adenocarcinoma of rectum; 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] 06-28-2024 Chronic Cardiac dysrhythmias (2 sources) Atrial fibrillation; Translations: [Unspecified atrial fibrillation] 06-17-2017 Chronic Cardiac dysrhythmias (1 source) Bradycardia; Translations: [Bradycardia, unspecified] 07-01-2017 Episodic Cardiac dysrhythmias (1 source) Cardiac dysrhythmias; Translations: [CHRONIC ATRIAL FIBRILLATION UNSPEC] Onset: 0 Disorders of lipid metabolism (1 source) Hyperlipidemia, unspecified; Translations: [HYPERLIPIDEMIA UNSPECIFIED] Onset: 0 Chronic Disorders of lipid metabolism (1 source) Pure hypercholesterolemia, unspecified; Translations: [PURE HYPERCHOLESTEROLEMIA UNSPEC] Onset: 0 Essential hypertension (2 sources) Essential (primary) hypertension; Translations: [Hypertensive disorder] Onset: 0 06-18-2017 Chronic External cause codes: Fall (1 source) Unspecified fall, initial encounter; Translations: [UNSPECIFIED FALL INITIAL ENCOUNTER] Onset: 0 External cause codes: Unspecified (1 source) Blood alcohol level of 240 mg/100 ml or more; Translations: [BLOOD ALCOHOL LV 240 MG/100 ML/MORE] Onset: 0 Fracture of upper limb (5 sources) Displaced fracture of lateral end of left clavicle, initial encounter for closed fracture; Translations: [Closed fracture of the medial epicondyle of humerus] Onset: 0 06-18-2017 Episodic Immunizations and screening for infectious disease (1 source) Encounter for immunization; Translations: [ENCOUNTER FOR IMMUNIZATION] Onset: 0 Episodic Nausea and vomiting (1 source) Vomiting; Translations: [Vomiting, unspecified] 07-01-2017 Episodic Other aftercare (1 source) penitentiary (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; Translations: [[facility]I CURRENT USE OF ASPIRIN] Onset: 0 Episodic Other aftercare (1 source) Other group home (current) drug therapy; Translations: [OTH BALE SEWER CURRENT DRUG THERAPY] Onset: 0 Episodic Other fractures (1 source) Fracture of sixth cervical vertebra; Translations: [Unspecified displaced fracture of sixth cervical vertebra, initial encounter for closed fracture] 06-07-2017 Episodic Other fractures (1 source) Fracture of rib; Translations: [Fracture of one rib, unspecified side, initial encounter for closed fracture] 06-07-2017 Episodic Other non-traumatic joint disorders (3 sources) Pain in left shoulder; Translations: [PAIN IN LEFT SHOULDER] Onset: 0 Episodic Other nutritional; endocrine; and metabolic disorders (1 source) Obesity, unspecified; Translations: [OBESITY UNSPECIFIED] Onset: 0 Chronic Other nutritional; endocrine; and metabolic disorders (1 source) Body mass index (BMI) 25.0-25.9, adult; Translations: [BODY MASS INDEX BMI 25.0-25.9 ADULT] Onset: 0 Episodic Residual codes; unclassified (1 source) Delirium; Translations: [Disorientation, unspecified] 06-17-2017 Episodic Residual codes; unclassified (1 source) Current drinker; Translations: [Other specified health status] 06-17-2017 Episodic Residual codes; unclassified (1 source) Patient encounter status; Translations: [Encounter for prophylactic measures, unspecified] 06-30-2017 Episodic Skull and face fractures (1 source) Zygomatic fracture, unspecified side, initial encounter for closed fracture; Translations: [Fracture of zygomatic arch] 06-07-2017 Episodic Superficial injury; contusion (1 source) Contusion of other part of head, initial encounter; Translations: [CONTUS OTH PRT HEAD INITIAL ENCNTR] Onset: 0 Episodic Unclassified (2 sources) New Patient; Translations: [New Patient] Onset: 4 Past or Other Problems Problem Classification Problem Date Documented Da te Episodic/Chronic Other nutritional; endocrine; and metabolic disorders (1 source) Finding of body mass index; Translations: [Body mass index [BMI]] Onset: 12-07-2018 Episodic Results Test Name Value Interpretation Reference Range Facil ity Office Visiton 06-30-2024 Follow-up visit [id number] Roldan Velasquez 1950 M Date Provider Department Center 06/30/2024 375-CLEM GALLARDO [facility] No family history on file Level of Service:93603 [place] OFFICE/OUTPATIENT NEW MODERATE MDM 45 MINUTES (GC) Reason for Visit and Comments: 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 Normal [facility] 06-20-2024 L Specimen: [id number] Received: 06/20/24 Status: CECILIA Garza Num: [id number] Spec Type: Surgical Subm Dr: Ning Wakefield DO Tissues: A Colon Biopsy (RECTAL MASS BX AT 5CM) Procedures: HE/4, Gross/Micro L4 Age/ Patient Sex Location Account Attending Physician Roldan Velasquez 73/M [facility] [id number] Ning Wakefield DO SPEC NUM: [id number] RECD: 06/20/24 STATUS: CECILIA GARZA NUM: [id number] ANITA: 06/20/[address]: Ning Wakefield DO ENTERED: 06/20/[address]: Luana Brown SPEC TYPE: Surgical DEPT: [facility]ER PER[facility] ENTERED BY: [id number] RECV BY: [id number] ORDERED: HE/, Gross/Micro L4 ORDERED: , Gross/Micro L4 Pathological Diagnosis Rectal mass biopsy and 5 cm: Poorly differentiated adenocarcinoma infiltrating into the submucosa. Clinical Information Rectal mass biopsy of 5 cm Gross Description The specimen is received in formalin with the patient's name and rectal mass biopsy at 5 cm and consists of multiple carter portions of soft tissue measuring 0.7 x 0.5 x 0.1 cm in aggregate. The specimen is filtered entirely submitted cassette A1. CPT Codes 88 305 Specimen: [id number] Received: 06/20/24 Status: CECILIA Garza Num: [id number] Spec Type: Surgical Subm Dr: Ning Wakefield DO Tissues: A Colon Biopsy (RECTAL MASS BX AT 5CM) Procedures: /4, Gross/Micro L4 Patient: TimurRoldan [id number] (Continued) Signed (signature on file) Mumtaz Amor MD 06/22/24 1845 Normal [facility] CNOVon 06-16-2021 CNOV Office Visit (NREUS2) ROLDAN VELASQUEZ ([id number]) 1950 M Date Time Provider Department 06/16/21 [...] male with a history of tremors since 1950. He is seen with a sister. Subjective [...] provided him with phone number for [employer] medical staff credentialing coordinator. he also had a chance to speak with Ms. Sage ([employer] social studies department chair). ? Follow-up with me once he is [...] which makes him go on walks to [employer] and less going to the bar Mood: [...] PROMIS-10 Office Visit from 06/16/2021 in [facility] Office Visit from 07/22/2020 [facility] T Score 57.7 44.9 [...] absent Extre (more content not included)... Normal [facility] CT [facility] CONon [address] [facility] CON EXAMINATION: CT [facility] CON HISTORY: Head injury. COMPARISON: CT cervical [...] GIBRAN WAY Date: 2020-06-04 23:44 Normal [facility] CT HEAD WO CONon 06-05-2020 CT HEAD [...] by: GRAHAM LINN Date: 2020-06-04 22:07 Normal [facility] XR CHEST 1 Von 06-05-2020 [...] by: GRAHAM LINN Date: 2020-06-04 22:13 Normal [facility] XR PELVIS 1_2 VIEWSon 2019 [...] by: GRAHAM LINN Date: 2020-06-04 22:16 Normal [facility] XR SHOULDER LT 2V or [...] GRAHAM LINN Date: 2020-06-04 22:15 Normal [facility] CARDIAC SHANE ADMITon 020 CK [Catalytic activity/Vol] 84 U/L Normal 55-170 [facility] Comment on above: Performed By: #### C HARINI WEST, CMADM #### [facility] [address] [place] [address] Marielena Keller CK.MB [Mass/Vol] 1.08 ng/mL Normal <=2.37 [facility] Comment on above: Performed By: #### C HARINI WEST, CMADM #### [facility] [address] [place] [address] Marielenaemma Keller INR Coag (Bld) [Relative time] SEE BELOW Normal [facility] Comment on above: Result Comment: <0.0 34 ng/ml NEGATIVE 0.034-0.119 INDETERMINATE 0.120 AMI CUT OFF Performed By: #### C HARIIN WEST, CMADM #### [facility] [address] [place] [address] Marielena Arianna KWABENA 58.0 ng/mL Normal <=121.0 [facility] Comment on above: Performed By: #### C HARINI WEST, CMADM #### [facility] [address] [place] [address] Marielena Arianna TROP <0.012 Normal <=0.034 [facility] Comment on above: Performed By: #### C HARINI WEST, CMADM #### [facility] [address] [place], [place] [id number] Marielena Arianna CBC AUTO DIFFon 06-04-2020 Basophils (Bld) [#/Vol] 0.1 103/ul Normal 0.0-0.1 [facility] Comment on above: Performed By: #### C BC #### [facility] [address] [place] [address] Marielena Arianna Basophils/100 WBC (Bld) 1.5 % Normal 0.2-2.0 [facility] Comment on above: Performed By: #### C BC #### [facility] [address] [place] [address] Marielena Arianna Eosinophils (Bld) [#/Vol] 0.1 103/ul Normal 0.0-0.7 [facility] Comment on above: Performed By: #### C BC #### [facility] [address] [place] [address] Marielena Arianna Eosinophils/100 WBC (Bld) 2.6 % Normal 0.9-7.0 [facility] Comment on above: Performed By: #### C BC #### [facility] [address] [place] [address] Marielena Arianna Erythrocyte distribution width (RBC) [Ratio] 13.3 % Normal 11.0-15.0 [facility] Comment on above: Performed By: #### C BC #### [facility] [address] [place] [address] Marielena Arianna Hematocrit (Bld) [Volume fraction] 39.5 % Critically low 42.0-54.0 [facility] Comment on above: Performed By: #### C BC #### [facility] [address] [place] [address] Marielena Arianna Hemoglobin (Bld) [Mass/Vol] 13.3 g/dL Critically low 14.0-18.0 [facility] Comment on above: Performed By: #### C BC #### [facility] [address] [place] [address] Marielena Arianna IG # 0.02 10e3/ul Normal 0.00-0.03 [facility] Comment on above: Performed By: #### C BC #### [facility] [address] [place] [address] Marielena Arianna IG % 0.4 % Normal 0.0-0.5 [facility] Comment on above: Performed By: #### C BC #### [facility] [address] [place] [address] Marielena Arianna Lymphocytes (Bld) [#/Vol] 1.7 103/ul Normal 1.2-3.8 [facility] Comment on above: Performed By: #### C BC #### [facility] [address] [place], [place] [id number] Marielena Arianna Lymphocytes/100 WBC (Bld) 38.0 % Normal 20.5-60.0 [facility] Comment on above: Performed By: #### C BC #### [facility] [address] [place], [place] [id number] Mairelena Arianna MANUAL DIFF REQ NO Normal [facility] Comment on above: Performed By: #### C BC #### [facility] [address] [place], [place] [id number] Marielena Arianna MCH (RBC) [Entitic mass] 32.1 pg Normal 25.9-34.0 [facility] Comment on above: Performed By: #### C BC #### [facility] [address] [place], [place] [id number] Marielenaemma Zafaren MCHC (RBC) [Mass/Vol] 33.7 g/dL Normal 29.9-35.2 [facility] Comment on above: Performed By: #### C BC #### [facility] [address] [place], [place] [id number] Marielenaemma Zafaren MCV (RBC) [Entitic vol] 95.4 fL Critically high 80.0-94.0 [facility] Comment on above: Performed By: #### C BC #### [facility] [address] [place], [place] [id number] Marielena Arianna Monocytes (Bld) [#/Vol] 0.6 103/ul Normal 0.3-0.8 [facility] Comment on above: Performed By: #### C BC #### [facility] [address] [place], [place] [id number] Marielena Arianna Monocytes/100 WBC (Bld) 13.7 % Critically high 1.7-12.0 [facility] Comment on above: Performed By: #### C BC #### [facility] [address] [place], [place] [id number] Marielena Arianna Neutrophils (Bld) [#/Vol] 2.0 103/ul Normal 1.4-6.5 [facility] Comment on above: Performed By: #### C BC #### [facility] [address] [place], [place] [id number] Marielena Arianna Neutrophils/100 WBC (Bld) 43.8 % Normal 43.0-75.0 [facility] Comment on above: Performed By: #### C BC #### [facility] [address] [place], [place] [id number] Marielena Arianna Platelet mean volume (Bld) [Entitic vol] 10.4 fL Normal 9.5-13.5 [facility] Comment on above: Performed By: #### C BC #### [facility] [address] [place], [place] [id number] Marielena Arianna Platelets (Bld) [#/Vol] 141 103/ul Critically low 150-450 [facility] Comment on above: Performed By: #### C BC #### [facility] [address] [place], [place] [id number] Marielena Arianna RBC (Bld) [#/Vol] 4.14 106/ul Critically low 4.70-6.10 [facility] Comment on above: Performed By: #### C BC #### [facility] [address] [place], [place] [id number] Marielena Arianna WBC (Bld) [#/Vol] 4.5 103/ul Normal 4.0-11.0 [facility] Comment on above: Performed By: #### C BC #### [facility] [address] [place], [place] [id number] Marielena Arianna ETHANOL (BLD ALC)on 06-04-20 20 Ethanol [Mass/Vol] NOTE: 80 mg/dl is the legal limit for a blood alcohol level Normal [facility] Comment on above: Performed By: #### C HARINI WEST CMADM #### [facility] [address] [place], [place] [id number] Marielena Arianna Ethanol [Mass/Vol] 347 mg/dL Normal [facility] Comment on above: Performed By: #### C MP, ETH, CMADM #### [facility] [address] [id number] Marielena Arianna PROF 14(COMP METB)on 020 Albumin [Mass/Vol] 3.5 g/dL Normal 3.5-5.0 [facility] Comment on above: Performed By: #### C JENNA, HARINI, CMADM #### [facility] [address] [id number] Marielena Arianna Albumin/Globulin [Mass ratio] 0.9 {ratio} Normal [facility] Comment on above: Performed By: #### C JENNA, HARINI, CMADM #### [facility] [address] [address] Marielena Arianna ALP [Catalytic activity/Vol] 54 U/L Normal 38-126 [facility] Comment on above: Performed By: #### C JENNA, HARINI, CMADM #### [facility] [address] [address] Marielena Arianna ALT [Catalytic activity/Vol] 109 U/L Critically high 21-72 [facility] Comment on above: Performed By: #### C JENNA, HARINI, CMADM #### [facility] [address] [place], [place] [id number] Marielena Arianna Anion gap [Moles/Vol] 14.5 mmol/L Normal [facility] Comment on above: Performed By: #### C JENNA, HARINI, CMADM #### [facility] [address] [address] Marielena Arianna AST [Catalytic activity/Vol] 128 U/L Critically high 17-59 [facility] Comment on above: Performed By: #### C JENNA, ETH, CMADM #### [facility] [address] [id number] Marielena Arianna Bilirubin Ql (U) 0.3 mg/dL Normal 0.2-1.3 [facility] Comment on above: Performed By: #### C JENNA, ETH, CMADM #### [facility] [address] [id number] Marielena Arianna Calcium [Mass/Vol] 8.5 mg/dL Normal 8.4-10.2 [facility] Comment on above: Performed By: #### C HARINI WEST CMAKODAK #### [facility] [address] [place] [address] Marielena Arianna Chloride [Moles/Vol] 102 mmol/L Normal 98-107 [facility] Comment on above: Performed By: #### C HARINI WEST, CMADM #### [facility] [address] [place] [address] Marielena Arianna CO2 [Moles/Vol] 25.2 mmol/L Normal 22.0-30.0 [facility] Comment on above: Performed By: #### C HARINI WEST CMADM #### [facility] [address] [place] [address] Marielena Arianna Creatinine [Mass/Vol] 0.87 mg/dL Normal 0.66-1.25 [facility] Comment on above: Performed By: #### C HARINI WEST CMADM #### [facility] [address] [place] [address] Marielena Arianna EGFR-AF KITTITIAN >60 Normal >=60 [facility] Comment on above: Performed By: #### C HARINI WEST CMADM #### [facility] [address] [place] [address] Marielena Arianna EGFR-NON AF KITTITIAN >60 Normal >=60 [facility] Comment on above: Performed By: #### C HARINI WEST CMADM #### [facility] [address] [place] [address] Amrielena Arianna Globulin (S) [Mass/Vol] 3.7 g/dL Normal [facility] Comment on above: Performed By: #### C HARINI WEST CMADM #### [facility] [address] [place] [address] Marielena Arianna Glucose [Mass/Vol] 107 mg/dL Critically high 74-106 [facility] Comment on above: Performed By: #### C HARINI WEST, CMADM #### [facility] [address] [place] [address] Marielena Arianna Potassium [Moles/Vol] 3.7 mmol/L Normal 3.4-5.0 [facility] Comment on above: Performed By: #### C HARINI WEST CMADM #### [facility] [address] [place] [address] Marielena Arianna Protein [Mass/Vol] 7.2 g/dL Normal 6.1-8.2 [facility] Comment on above: Performed By: #### C HARINI WEST CMADM #### [facility] [address] [place] [address] Marielena Arianna Sodium [Moles/Vol] 138 mmol/L Normal 137-145 [facility] Comment on above: Performed By: #### C HARINI WEST CMADM #### [facility] [address] [place] [address] Marielena Arianna Urea nitrogen [Mass/Vol] 11.0 mg/dL Normal 9.0-20.0 [facility] [facility] Comment on above: Performed By: #### C HARINI WEST CMADM #### [facility] [address] [place], [place] [id number] Marielena Arianna Urea nitrogen/Creatinin e [Mass ratio] 12.6 mg/mg Normal [facility] Comment on above: Performed By: #### C HARINI WEST CMADM #### [facility] [address] [place], [place] [id number] Marielena Arianna Vital Signs Date Time Vital Sign Value Performing Clinician Facility 06-28-2024 08:14 Body height 177.8 cm [employer] Phone: [facility] 06-28-2024 08:140400 Body mass index (BMI) [Ratio] 27.55 kg/m2 [employer] Phone: [facility] 06-28-2024 08:14040 Body weight 87.09 kg [employer] Phone: [facility] 06-28-2024 08:14040 Diastolic blood pressure 84 mm[Hg] [employer] Phone: [facility] 06-28-2024 08:14-0400 Heart rate 85 /min Ning Wakefield DO Work Phone: [facility] 06-28-2024 08:14-0400 Respiratory rate 18 /min Ning Wakefield DO Work Phone: [facility] 06-28-2024 08:14-0400 SaO2% (BldA) [Mass fraction] 98 % Ning Wakefield DO Work Phone: [facility] 06-28-2024 08:14-0400 Systolic blood pressure 138 mm[Hg] Ning Wakefield DO Work Phone: [facility] 12-07-2018 16:37-0400 Body height 177.8 cm Chelsy Rosales CNP Work Phone: [facility] Work Phone: 12-07-2018 16:37-0400 Body mass index (BMI) [Ratio] 25.9 kg/m2 Chelsy Rosales CNP Work Phone: [facility] Work Phone: 12-07-2018 16:37-0400 Body surface area Derived from formula 2 m2 Chelsy Rosales CNP Work Phone: [facility] Work Phone: 12-07-2018 16:37-0400 Body temperature 96.6 [degF] Chelsy Rosales CNP Work Phone: [facility] Work Phone: 12-07-2018 16:37-0400 Body weight 81.76 kg Chelsy Rosales CNP Work Phone: [facility] Work Phone: 12-07-2018 16:37-0400 Diastolic blood pressure 80 mm[Hg] Chelsy Rosales CNP Work Phone: [facility] Work Phone: 12-07-2018 16:37-0400 Heart rate 54 /min Chelsy Burke [employer] Work Phone: [facility] Work Phone: 12-07-2018 16:37-0400 SaO2% (BldA) [Mass fraction] 98 % Chelsy Rosales [employer] Work Phone: [facility] Work Phone: 12-07-2018 16:37-0400 Systolic blood pressure 130 mm[Hg] Chelsy Rosales [employer] Work Phone: [facility] Work Phone: Encounters Encounter Date Encounter Type Care Provider Facility Start: 06-30-2024 End: 06-30-2024 ambulatory CLEM GALLARDO [facility] Start: 06-28-2024 End: 06-28-2024 Bamboo flowsheet Ning Wakefield DO Work Phone: [facility] Start: 06-28-2024 End: 06-28-2024 Bamboo flowsheet Ning Wakefield DO Work Phone: [facility] Start: 06-28-2024 End: 06-28-2024 Postop follow up visit related to original px Ning Wakefield DO Work Phone: [facility] Comment on above: 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) Start: 06-28-2024 End: 06-28-2024 ambulatory NING WAKEFIELD Not Available Start: 06-20-2024 End: 06-20-2024 ambulatory Ning Wakefield [facility] Work Phone: Start: 06-20-2024 End: 06-20-2024 Departed Referred DO Ning Wakefield Work Phone: [facility] Start: 06-05-2024 End: 06-05-2024 ambulatory NING WAKEFIELD Not Available Start: 06-05-2020 End: 06-05-2020 Patient encounter procedure [facility] Facility: Start: 04-25-2019 End: 04-26-2019 Emergency department patient visit [facility] Start: 12-07-2018 End: 12-07-2018 FQ visit new patient Wendi Katz [employer] Work Phone: [facility] Work Phone: Procedures Date Procedure Procedure Detail Performing Clinician Start: 12-07-2018 HYPERTENSION (SYSTEMIC) Chelsy Rosales [employer] Work Phone: Start: 12-07-2018 Operative procedure on ankle Chelsy Rosales [employer] Work Phone: Start: 12-07-2018 Operative procedure on hand Chelsy Rosales [employer] Work Phone: Start: 12-07-2018 Surgical procedure Levar Rosales [employer] Work Phone: Plan of Treatment Date Care Activity Detail Author Start: 06-28-2024 End: 06-28-2025 Creatine Creatine Lab Routine Adenocarcinoma of rectum (HCC) (CMS/HCC) Expected: 06/28/2024 (Approximate), Expires: 06/28/2025 [employer] Comment on above: Expected: 06/28/2024 (Approximate), Expires: 06/28/2025 Start: 06-28-2024 End: 06-28-2025 CT CHEST ABDOMEN PELVIS W IV CONTRAST CT CHEST ABDOMEN PELVIS W IV CONTRAST Imaging Routine Adenocarcinoma of rectum (HCC) (CMS/HCC) Expected: 06/28/2024, Expires: 06/28/2025 [employer] Work Phone: Comment on above: Expected: 06/28/2024 , Expires: 06/28/2025 Start: 06-28-2024 End: 06-28-2025 MR Pelvis WO and W contrast IV MR pelvis w and wo contrast Imaging Routine Adenocarcinoma of rectum (HCC) (CMS/HCC) Expected: 06/28/2024, Expires: 06/28/2025 [employer] Comment on above: Expected: 06/28/2024 , Expires: 06/28/2025 Start: 06-28-2024 End: 06-28-2024 Patient encounter procedure 06/28/2024 8:15 AM EDT Office Visit [facility] [address] [place] [id number] Ning Wakefield DO [address] [place] [address] Arrived [facility] Comment on above: Arrived Immunizations Immunization Date Immunization Notes Care Provider Noemy enriquez 07-08-2017 influenza, high dose seasonal, preservative-free DO Ning Wakefield Work Phone: [facility] 06-07-2017 tetanus toxoid, redu mary jo diphtheria toxoid, and acellular pertussis vaccine, adsorbed DO Ning Wakefield Work Phone: [facility] Payers Date Payer Category Payer Self-pay [id number] 2022 Medicare [employer] [id number] 2022-Present [address] [place] [address] [id number] 2022 Medicare [id number] 1961 Unknown [id number] 1950 Unknown [id number] 1950 Unknown [id number] 1948 Unknown [id number] 1948 Unknown [id number] Medicare 1 - Medicare FQHC CGS PPS 2V [id number] Medicare Medicare [id number] Unknown [facility] [id number] Unknown [id number] Social History Date Type Detail Facility Assertion Finding of alcoh ol intake (finding) [facility] Work Phone: Assertion Gender identity finding (finding) [facility] Work Phone: Assertion Heterosexual (finding) [facility] Work Phone: Assertion Recovering alcoholic [facility] Work Phone: Assertion Finding of sexua l orientation (finding) [facility] Work Phone: Tobacco smoking status Unknown if ever smoked [facility] Start: 08-11-2017 Tobacco smoking status NHIS Never smoked tobacco (finding) [facility] Start: 1950 Sex Assigned At Male [facility] Start: 1950 Sex assigned at Not on file [facility] Gender identity Not on file [facility] are NEGATED: Highlighted row Assertion Exposure to pollution (event) [facility] Work Phone: NEGATED: Highlighted row Assertion Tobacco user (finding) [facility] Work Phone: NEGATED: Highlighted row Assertion Finding relating to drug misuse behavior (finding) [facility] Work Phone: Medical Equipment Procedure Code Equipment Code Equipment Origin al Text Equipment Identifier Dates ORIF, fracture, wrist 2.4MM VA-LCP VOLAR RIM PLATE FDA Start: 06-25-2017 ORIF, fracture, wrist SCREW 2.4MM LOCKING VARIABLE FDA Start: 06-25-2017 ORIF, fracture, wrist SCREW 2.4MM LOCKING VARIABLE FDA Start: 06-25-2017 ORIF, fracture, wrist SCREW CORTEX 2.4MM X 14MM FDA Start: 06-25-2017 ORIF, fracture, wrist SCREW CORTEX 2.4MM X 14MM FDA Start: 06-25-2017 ORIF, fracture, wrist SCREW CORTEX 2.4MM X 24MM FDA Start: 06-25-2017 ORIF, fracture, wrist SCREW CORTEX 2.7MM X 16MM FDA Start: 06-25-2017 ORIF, fracture, wrist headless compression screw 40 FDA Start: 06-25-2017 ORIF, fracture, wrist CANCELLOUS 7.5 CRUSHED FDA Start: 06-25-2017 ORIF, fracture, wrist K-WIRE 1.25MM X 150MM W/TROC FDA Start: 06-25-2017 ORIF, fracture, wrist K-WIRE 1.25MM X 150MM W/TROC FDA Start: 06-25-2017 ORIF, fracture, wrist K-WIRE 1.25MM X 150MM W/TROC FDA Start: 06-25-2017 ORIF, fracture, wrist K-WIRE 1.25MM X 150MM W/TROC FDA Start: 06-25-2017 ORIF, fracture, wrist SCREW 2.4MM HEADLESS 36MM FDA Start: 06-25-2017 ORIF, fracture, wrist SCREW 2.4MM LOCKING VARIABLE FDA Start: 06-25-2017 ORIF, fracture, wrist SCREW 2.4MM LOCKING VARIABLE FDA Start: 06-25-2017 Clinical Notes 06-16-2021 to 06-30-2024 Ning Wakefield DO - 06/28/2024 8:15 AM EDT Note Date & Type Note Facility 06-30-2024 Note Attestation signed by Clem Gallardo MD at 07/03/2024 9:36 AM I personally saw and examined the patient on the same date of service as resident/fellow . I discussed the findings and therapeutic plan with the resident/fellow . I agree with the documentation. [facility] Gastroenterology New Patient Visit - History & Physical CHIEF COMPLAINT Chief Complaint Patient presents with New Patient adenocarcinoma of rectum HISTORY OF PRESENT ILLNESS: Roldan Velasquez is a 73 y.o. male has hx of a-fib for that patient is on eliquis, essential hypertension who recently had ER visit for hematochezia. 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 Patient referred to us for possible EMR of the lesion. Currently he denies any issues since the c-scope and no bleeding per rectum. Denies fevers, chills, or sweats. Denies nausea or vomiting. Tolerating diet and having regular bowel function. No complaints at this time. PREVIOUS LABS/IMAGING/ENDOSCOPY: HISTORY: Problem list: There is no problem list on file for this patient. Past Medical History: History reviewed. No pertinent past medical history. Past Surgical History: History reviewed. No pertinent surgical history. FAMILY HISTORY: No family history on file. SOCIAL HISTORY: Social History Tobacco Use Smoking status: Never Smokeless tobacco: Never Substance Use Topics Alcohol use: Yes Comment: case of beer a week Drug use: Never ALLERGIES: Patient has no known allergies. Current Medications: Current Outpatient Medications: apixaban (Eliquis) 5 mg tablet, Take 5 mg by mouth twice a day., Disp: , Rfl: atorvastatin (Lipitor) 20 mg tablet, Take 20 mg by mouth in the morning., Disp: , Rfl: dilTIAZem CD (Cardizem CD) 120 mg 24 hr capsule, Take 1 tablet by mouth in the morning., Disp: , Rfl: docusate sodium (Colace) 100 mg capsule, Take 100 mg by mouth twice a day., Disp: , Rfl: losartan-hydrochlorothiazide (Hyzaar) 100-12.5 mg tablet, Take 1 tablet by mouth in the morning., Disp: , Rfl: I reviewed and reconciled this patient's medication list today. The list included in this note is the most up to date list that I can attest to at this time based on the information that the patient has provided me and the electronic medical record. REVIEW OF SYSTEMS: See HPI, otherwise ROS as below CONSTITUTIONAL: negative HEENT: negative RESPIRATORY: negative CARDIOVASCULAR: negative GASTROINTESTINAL: As in HPI GENITOURINARY: negative INTEGUMENT/BREAST: negative MUSCULOSKELETAL: negative NEUROLOGICAL: negative BEHAVIOR/PSYCH: negative PHYSICAL EXAM: Vitals: 06/30/24 1053 BP: 142/78 BP Location: Left arm Patient Position: Sitting BP Cuff Size: Adult Pulse: 78 SpO2: 99% Weight: 86.3 kg (190 lb 3.2 oz) Height: 1.778 m (5' 10 ) Body mass index is 27.29 kg/m???. GEN: Alert and oriented x3, NAD HEENT: Atraumatic, normocephalic CV: Regular rate and rhythm PULM: Breathing comfortably ABD: Soft, non-tender, non-distended NEURO: Moves all 4 extremities spontaneously LABORATORY DATA: CBC: No results found for: WBC , RBC , HGB , HCT , MCV , RDW , PLT PT/INR No results found for: PT , INR BMP: No results found for: NA , K , CL , BUN , CREATININE , EGFR , GLU LFTs: No results found for: BILITOT , BILIDIR , ALKPHOS , GGT , AST , ALT , ALBUMIN , PROT B12/Folate/Iron studies: No results found for: [id number] , FOLATE , IRON , TIBC , UIBC , IRONSAT , FERRITIN Viral Hepatitis No results found for: HEPAIGM , HAV , HEPBSAG , HEPBSAB , HEPBEAB , HEPBIGM , HEPBCAB , HEPBCOREAB , HBVNAT , HCVSCR , HEPCAB , HCVNAT , HCVPCR , HCVTMA Liver Workup No results found for: JENNIFER , SMOOTHMUSCAB , CERULOPLSM , [id number] , TTGA , IGA , TSH , FREET4 , AFP Pancreatitis No results found for: AMYLASE , LIPASE , TRIG , CALCIUM ASSESSMENT AND PLAN: Roldan Velasquez is a 73 y.o. male has hx of a-fib for that patient is on eliquis, essential hypertension who recently had ER visit for hematochezia. 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 Patient referred to us for possible EMR of the lesion. Currently he denies any issues since the c-scope and no bleeding per rectum. Denies fevers, chills, or sweats. Denies nausea or vomiting. Tolerating diet and having regular bowel function. No complaints at t (more content not included)... [facility] 06-28-2024 History of Present illness Narrative Images from the original note were not included. General Surgery H&P Roldan Velasquez 1950 Roldan Velasquez is a 73 y.o. male presents with chief complaint of Follow-up (Pt presents today for a follow up after his colonoscopy on 06/20. ). Colonoscopy revealed a large rectal mass, approximately at 5cm-10cm from anal verge which was biopsied and reported as poorly differentiated adenocarcinoma infiltrating into the submucosa. He denies any issues since the c-scope and no bleeding per rectum. Denies fevers, chills, or sweats. Denies nausea or vomiting. Tolerating diet and having regular bowel function. No complaints at this time. I discussed his diagnosis of rectal cancer with him and the next steps to follow. He was given verbal and written instructions for completion of staging workup including CT Chest/Abd/plv, MRI pelvis, heme-onc referral and GI referral for possible EMR. His brother was at the appointment and updated on the next steps to complete as well. He verbalized understanding. SUBJECTIVE: MEDICATIONS: ALLERGIES Current Outpatient Medications Medication Instructions atorvastatin (LIPITOR) 40 mg, Oral, Daily Cardizem CD 120 mg, Oral, Daily docusate sodium (COLACE) 100 mg, Oral, 2 times daily Eliquis 5 mg, Oral, 2 times daily losartan-hydroCHLOROthiazide (Hyzaar) 100-12.5 MG tablet 1 tablet, Oral, Daily No Known Allergies PAST MEDICAL HISTORY: SOCIAL HISTORY SURGICAL HISTORY: History reviewed. No pertinent past medical history. Past Surgical History: Procedure Laterality Date CT ANGIOGRAM HEART CORONARY 04/16/2018 CT ANGIOGRAM TAVR 04/16/2018 CT GUIDED TRANSVAGINAL TRANSRECTAL FLUID DRAIN 04/16/2018 CT GUIDED TRANSVAGINAL TRANSRECTAL FLUID DRAIN 04/16/2018 No family history on file. No Known Allergies Past Surgical History: Procedure Laterality Date CT ANGIOGRAM HEART CORONARY 04/16/2018 CT ANGIOGRAM TAVR 04/16/2018 CT GUIDED TRANSVAGINAL TRANSRECTAL FLUID DRAIN 04/16/2018 CT GUIDED TRANSVAGINAL TRANSRECTAL FLUID DRAIN 04/16/2018 Tobacco Use: High Risk (07/13/2023) Received from [employer] Patient History Smoking Tobacco Use: Never Smokeless Tobacco Use: Current Passive Exposure: Not on file Alcohol Use: Not on file Depression: Not at risk (01/07/2022) Received from [employer] PHQ-2 Total Score: 2 Physical Activity: Not on file REVIEW OF SYMPTOMS: Review of Systems All other systems reviewed and are negative. 10 systems were reviewed. Positives noted above. Remainder are negative per [facility] guidelines OBJECTIVE: Visit Vitals BP 138/84 Pulse 85 Resp 18 Ht 5' 10 Wt 192 lb SpO2 98% BMI 27.55 kg/m BSA 2.07 m Physical Exam Vitals reviewed. General: AAOx3, NAD Head: atraumatic normocephalic Neck: trachea midline. No masses or lymphadenopathy Heart: Regular rate and rhythm Lungs: equal chest rise and fall, non labored breathing Abdomen: soft, nontender, and non distended Ext: motor 5/5 all extremities with no gross deformities Psych: alert and oriented, behavior appropriate Media Information Document Information Other: Other PATHOLOGY RE[place] [facility] [place] 00:00 Attached To: Roldan Velasquez Source Information ASSESSMENT AND PLAN: Assessment/Plan Diagnoses and all orders for this visit: Adenocarcinoma of rectum (HCC) (CMS/HCC) - CT CHEST ABDOMEN PELVIS W IV CONTRAST; Future - MR pelvis w and wo contrast; Future - Ambulatory referral to Oncology; Future - Creatine; Future I discussed his diagnosis of rectal cancer with him and the next steps to follow. He was given verbal and written instructions for completion of staging workup including CT Chest/Abd/plv, MRI pelvis, heme-onc referral and GI referral for possible EMR. His brother was at the appointment and updated on the next steps to complete as well. Our office staff helped coordinate his referral appointments and imaging appointments. Will plan to follow up with the patient after imaging complete and referral appointments have been done. Cr ordered for imaging clearance. Thank you, Essence Wakefield DO documented in this encounter [facility] 06-16-2021 Note HNO ID: [id number] Author: Jean Christian MD Service: ? Author [...] provided him with phone number for [employer] medical staff credentialing coordinator. he also had a chance to speak with Ms. Sage ([employer] social studies department chair). ? Follow-up with me once he is [...] makes him go on walks to [employer] and less going to the bar Mood: [...] PROMIS-10 Office Visit from 06/16/2021 in [facility] Office Visit from 07/22/2020 in [facility] T Score 57.7 44.9 [...] General Neurological Examination: (more content not included)... [facility] Evaluation note Assessments not supported for this document typeNo Assessments [facility] Work Phone: Evaluation note No assessment inform ation available [facility] Work Phone: Evaluation note Diagnosis Adenocarcinoma of rectum (HCC) (CMS/HCC)- Primary documented in this encounter [facility] Narrative History of Present Illness not supported for this document type No History of Present Illness [facility] Work Phone: Instructions Instructions not supported for this document type No Instructions [facility] Work Phone: patient problem outcome Narrative Includes: Evaluations & Outcomes for active Goals No Outcomes [facility] Work Phone: reason for referral (narrative)* Consultation (Routine) - Pending Review Specialty Diagnoses / Procedures Referred By Enedina colindres Referred To Contact Oncology Diagnoses Adenocarcinoma of rectum (HCC) (CMS/HCC) Procedures [place] OFFICE[facility]OUTPATIENT [facility] 60 MINUTES Ning Wakefield DO [address] [facility] [address] [place] [address] Aimee Singh MD [address] [place] [address] Referral ID Status Reason Start Date Expiration Date Visits Requested Visits Authorized [id number] Pending Review Specialty Services Required 06/28/2024 12/25/2024 1 1 * Imaging (Routine) - Pending Review Specialty Diagnoses / Procedures Referred By Enedina colindres Referred To Contact Radiology Diagnoses Adenocarcinoma of rectum (HCC) (CMS/HCC) Procedures MR pelvis w and wo contrast Ning Wakefield, DO [address] [place] [address] [facility] [address] [place] [address] Referral ID Status Reason Start Date Expiration Date V isits Requested Visits Authorized [id number] Pending Review 06/28/2024 12/25/2024 1 1 * Imaging (Routine) - Pending Review Specialty Diagnoses / Procedures Referred By Enedina colindres Referred To Contact Radiology Diagnoses Adenocarcinoma of rectum (HCC) (CMS/HCC) Procedures CT CHEST ABDOMEN PELVIS W IV CONTRAST Ning Wakefield, DO [address] [place] [address] [place] [address] Referral ID Status Reason Start Date Expiration Date V isits Requested Visits Authorized [id number] Pending Review 06/28/2024 12/25/2024 1 1 [facility] Narrative - Reported Review of Systems not supported for this document type No Review of Systems [facility] Work Phone: Summary Purpose Family History Description Last Updated Maternal history of type 2 diabetes ria itus 12/07/2018 Relationship Condition Age at Onset Recorded Date/T sunshine father Unknown mother Unknown Advance Directives Advance Directive Response Recorded Date/ Time Advance Directives No May 11:06am Physical Exam Physical Exam not supported for this document type No Physical Exam Recorded Additional Source Comments (unrecognized sect ion and content) No Status Records FoundNo Status Records FoundNo Status Records FoundNo Status Records FoundNo Status Records FoundNo Status Records Found INFORMATION SOURCE (unrecogn ized section and content) DATE CREATED AUTHOR 04/27/2019 [facility] DATE CREATED AUTHOR AUTHOR'S ORGANIZ ATION 06/12/2020 [facility] DATE CREATED AUTHOR AUTHOR'S ORGANIZ ATION 11/05/2021 [facility] DATE CREATED AUTHOR AUTHOR'S ORGANIZ ATION 06/22/2024 [facility] DATE CREATED AUTHOR AUTHOR'S ORGANIZ ATION 06/29/2024 [facility] EPIC DATE CREATED AUTHOR AUTHOR'S ORGANIZ ATION 07/04/2024 [facility] Care Teams (unrecognized sec tion and content) Team Status: Inactive Member Role Status Dates Ning Wakefield DO Attending Provider Active Star t: June 20, 2024 End: June 20, 2024 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 FOR RECORDS PERTAINING TO PATIENTS WHO ARE [...] BE BASED ON THE PRIMARY CLINICAL RECORDS. [facility] [employer] provides no warranty or guarantee of the accuracy or completeness of information in this document.
--- NOTE | 2024-07-11 11:45 | CT_ITS ---
The [address] [address] Patient Name: ROLDAN COTE MRN: [id number] date: 1950 Sex: M Assigned Patient Location: LAB Current Patient Location: LAB Accession/Order Number: [id number] Exam Date: 07/11/2024 11:17 Report Date: 07/11/2024 12:22 At the request of: NING CAMARENA Procedure: CT abdomen pelvis w con EXAM: CT abdomen pelvis w con HISTORY: Adenocarcinoma Of Rectum COMPARISON: CT abdomen and pelvis 05/15/2024.. TECHNIQUE: Following intravenous administration of 100 cc of Omnipaque 300, axial soft tissue windows of the abdomen and pelvis were performed with coronal and sagittal reformats. CT dose reduction technique was used including Automated Exposure Control. Findings: Stable left lower lobe 0.7 cm nodule. ABDOMEN: The liver, gallbladder, spleen, pancreas, and adrenal glands are unremarkable. No renal stones or collecting system dilatation. Mild nonspecific bilateral perinephric fat stranding. Right renal cortical defects likely relating to prior infarcts or infection. The bilateral ureters are nondilated. Redemonstrated is the rectal masslike opacity measuring approximately 3.6 x 1.9 cm. There are colonic diverticula. Otherwise, the bowel is unremarkable without evidence of wall thickening or obstruction. The appendix is nondilated. The aorta is normal caliber. Mild atherosclerotic disease. No enlarged abdominal lymph node nodes or free abdominal fluid. Pelvis: Unremarkable bladder. The prostate is nonenlarged. No enlarged pelvic lymph nodes or free pelvic fluid. CT/CT abdomen pelvis w con IMPRESSION: 1. Redemonstrated is the probable rectal mass. 2. No evidence of metastases. 3. Other nonemergent findings, as described above. Electronically authenticated by: SAAD VILLA Date: 07/11/2024 12:22
== END 2024-07-11 10:37 | disposition home or self-care (01) ==
LOC: LAB 10:36
PROVIDERS: Visit Provider Surgery
DX: C20 Malignant neoplasm of rectum (principal)
CPT/HCPCS: 71260; 74177; Q9967

== ENCOUNTER 2024-07-14 07:27 | Outpatient (OUT) | payer MEDICARE, SELFPAY ==
--- OUTSIDE RECORDS SUMMARY | 2024-07-14 07:30 | XMS_ITS | CCD ---
Author Organization [place] [facility] Care Team Providers Care Hog Killer Name Role Phone KAMALJIT SILVA Primary Care Unavailable MISC, DOCTOR Primary Care Unavailable SAVANNAH HERNÁNDEZ Admitting Unavailable SAVANNAH HERNÁNDEZ Attending Unavailable BLAIR KOCH Consulting Unavailable GRAHAM LINN V Consulting Unavailable MARKER, ROHIT Consulting Unavailable SAVANNAH HERNÁNDEZ Consulting Unavailable SAMARTINE GIBRAN Consulting Unavailable Chelsy Rosales CNP Primary Care Provider [phone] DO Ning Wakefield Attending Provider Ning Wakefield Attending Unavailable Ning Wakefield Admitting Unavailable NING WAKEFIELD Attending Unavailable NING WAKEFIELD Attending Unavailable Phil MINAYA, [facility] Primary Care Provide r CLEM GALLARDO Attending Unavailable NING WAKEFIELD Referring Unavailable Allergies Allergy Classification Reported Allergen(s) Allergy Type Date of Onset Reaction(s) Facility (1 source) -No Known Enviornmental Allergies; Translations: [-No Known Enviornmental Allergies] Allergy to substance 12-07-2018 [facility] Work Phone: Medications Current Medications Medication [...] PO Daily 30 July 08, 2017 12:00am [place] (No Known Home Meds) (1 source) Start: 7 [place] (No Known Home Meds) Active June 29, [...] unspecified] 07-01-2017 Episodic Other aftercare (1 source) retirement (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; Translations: [HALFWAY CURRENT USE OF ASPIRIN] Onset: 0 Episodic Other aftercare (1 source) Other alf (current) drug therapy; Translations: [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] Onset: 0 Episodic Other [...] Facil ity Office Visiton 06-30-2024 Follow-up visit [id number] Roldan Velasquez 1950 M Date Provider Department Center 06/30/2024 375-CLEM GALLARDO [facility] No family history on file Level of Service:03854 ME OFFICE/OUTPATIENT NEW MODERATE MDM 45 MINUTES (GC) Reason for Visit and Comments: 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 Normal [facility] 06-20-2024 L Specimen: [id number] Received: 06/20/24 Status: CECILIA Garza Num: [id number] Spec Type: Surgical Subm Dr: Ning Wakefield DO Tissues: A Colon Biopsy (RECTAL MASS BX AT 5CM) Procedures: HE/4, Gross/Micro L4 Age/ Patient Sex Location Account Attending Physician Roldan Velasquez 73/M LABELL [id number] Ning Wakefield DO SPEC NUM: [id number] RECD: 06/20/24 STATUS: CECILIA GARZA NUM: [id number] ANITA: 06/20/[address]: Ning Wakefield DO ENTERED: 06/20/[address]: Luana Brown SPEC TYPE: Surgical DEPT: [facility] ENTERED BY: [id number] RECV BY: [id number] ORDERED: HE/, Gross/Micro L4 ORDERED: , Gross/Micro [...] cassette A1. CPT Codes 88 305 Specimen: [id number] Received: 06/20/24 Status: CECILIA Garza Num: [id number] Spec Type: Surgical Subm Dr: Ning Wakefield DO Tissues: A Colon Biopsy (RECTAL MASS BX AT 5CM) Procedures: /4, Gross/Micro L4 Patient: TimurRoldan [id number] (Continued) Signed (signature on file) Mumtaz Amor MD 06/22/24 1845 Normal [facility] CNOVon 06-16-2021 CNOV Office Visit (NREUS2) ROLDAN VELASQUEZ ([id number]) 1950 M Date Time Provider Department 06/16/21 [...] Dr. Nath and discussed possibility of [facility] admission for alcohol withdrawal. ? I provided him with phone number for [facility] benefits coordinator. he also had a chance to speak with Ms. Sage (CNR social welfare clerk). ? Follow-up with me once he is [...] which makes him go on walks to [employer] and less going to the bar Mood: [...] PROMIS-10 Office Visit from 06/16/2021 in [facility] Office Visit from 07/22/2020 [facility] T Score 57.7 44.9 [...] absent Extre (more content not included)... Normal [facility] CT [facility] CONon [address] [facility] CON EXAMINATION: CT [facility] CON HISTORY: Head injury. COMPARISON: CT cervical [...] GIBRAN WAY Date: 2020-06-04 23:44 Normal [facility] CT HEAD WO CONon 06-05-2020 CT [...] GRAHAM LINN Date: 2020-06-04 22:07 Normal [facility] XR CHEST 1 Von 06-05-2020 XR CHEST [...] GRAHAM LINN Date: 2020-06-04 22:13 Normal [facility] XR PELVIS 1_2 VIEWSon 2019 XR PELVIS 1_2 VIEWS EXAMINATION: XR PELVIS 1_2 VIEWS HISTORY: Altered mental status COMPARISON: No relevant comparison available. FINDINGS: BOWEL GAS PATTERN: No abnormal dilation or deviation. CALCIFICATIONS: None significant. OTHER: No acute fracture. Mild bilateral hip osteoarthropathy. Mild spondylosis of the spine IMPRESSION: No definite acute fracture Electronically authenticated by: GRAHAM LINN Date: 2020-06-04 22:16 Normal [facility] XR SHOULDER LT 2V or >on XR [...] GRAHAM LINN Date: 2020-06-04 22:15 Normal [facility] CARDIAC SHANE ADMITon 020 CK [Catalytic activity/Vol] 84 U/L Normal 55-170 [facility] Comment on above: Performed By: #### C HARINI WEST, CMADM #### [facility] [address] [place] [address] Marielena Keller CK.MB [Mass/Vol] 1.08 ng/mL Normal <=2.37 [facility] Comment on above: Performed By: #### C HARINI WEST, CMADM #### [facility] [address] [place] [address] Marielenaemma Keller INR Coag (Bld) [Relative time] SEE BELOW Normal [facility] Comment on above: Result Comment: <0.0 34 ng/ml NEGATIVE 0.034-0.119 INDETERMINATE 0.120 AMI CUT OFF Performed By: #### C HARINI WEST, CMADM #### [facility] [address] [place] [address] Marielena Arianna KWABENA 58.0 ng/mL Normal <=121.0 [facility] Comment on above: Performed By: #### C HARINI WEST, CMADM #### [facility] [address] [place] [address] Marielena Arianna TROP <0.012 Normal <=0.034 [facility] Comment on above: Performed By: #### C HARINI WEST, CMADM #### [facility] [address] [place], [place] [id number] Marielena Arianna CBC AUTO DIFFon 06-04-2020 Basophils (Bld) [#/Vol] 0.1 103/ul Normal 0.0-0.1 [facility] Comment on above: Performed By: #### C BC #### [facility] [address] [place] [address] Marielena Arianna Basophils/100 WBC (Bld) 1.5 % Normal 0.2-2.0 [facility] Comment on above: Performed By: #### C BC #### [facility] [address] [place] [address] Marielena Arianna Eosinophils (Bld) [#/Vol] 0.1 103/ul Normal 0.0-0.7 [facility] Comment on above: Performed By: #### C BC #### [facility] [address] [place] [address] Marielena Arianna Eosinophils/100 WBC (Bld) 2.6 % Normal 0.9-7.0 [facility] Comment on above: Performed By: #### C BC #### [facility] [address] [place] [address] Marielena Arianna Erythrocyte distribution width (RBC) [Ratio] 13.3 % Normal 11.0-15.0 [facility] Comment on above: Performed By: #### C BC #### [facility] [address] [place] [address] Marielena Arianna Hematocrit (Bld) [Volume fraction] 39.5 % Critically low 42.0-54.0 [facility] Comment on above: Performed By: #### C BC #### [facility] [address] [place] [address] Marielena Arianna Hemoglobin (Bld) [Mass/Vol] 13.3 g/dL Critically low 14.0-18.0 [facility] Comment on above: Performed By: #### C BC #### [facility] [address] [place] [address] Marielena Arianna IG # 0.02 10e3/ul Normal 0.00-0.03 [facility] Comment on above: Performed By: #### C BC #### [facility] [address] [place] [address] Marielena Arianna IG % 0.4 % Normal 0.0-0.5 [facility] Comment on above: Performed By: #### C BC #### [facility] [address] [place] [address] Marielena Arianna Lymphocytes (Bld) [#/Vol] 1.7 103/ul Normal 1.2-3.8 [facility] Comment on above: Performed By: #### C BC #### [facility] [address] [place], [place] [address] Marielena Arianna Lymphocytes/100 WBC (Bld) 38.0 % Normal 20.5-60.0 [facility] Comment on above: Performed By: #### C BC #### [facility] [address] [place], [place] [address] Marielena Arianna MANUAL DIFF REQ NO Normal [facility] Comment on above: Performed By: #### C BC #### [facility] [address] [place], [place] [address] Marielena Arianna MCH (RBC) [Entitic mass] 32.1 pg Normal 25.9-34.0 [facility] Comment on above: Performed By: #### C BC #### [facility] [address] [place], [place] [address] Marielenaemma Zafaren MCHC (RBC) [Mass/Vol] 33.7 g/dL Normal 29.9-35.2 [facility] Comment on above: Performed By: #### C BC #### [facility] [address] [place], [place] [address] Marielenaemma Zafaren MCV (RBC) [Entitic vol] 95.4 fL Critically high 80.0-94.0 [facility] Comment on above: Performed By: #### C BC #### [facility] [address] [place], [place] [address] Marielena Arianna Monocytes (Bld) [#/Vol] 0.6 103/ul Normal 0.3-0.8 [facility] Comment on above: Performed By: #### C BC #### [facility] [address] [place], [place] [address] Marielena Arianna Monocytes/100 WBC (Bld) 13.7 % Critically high 1.7-12.0 [facility] Comment on above: Performed By: #### C BC #### [facility] [address] [place], [place] [address] Marielena Arianna Neutrophils (Bld) [#/Vol] 2.0 103/ul Normal 1.4-6.5 [facility] Comment on above: Performed By: #### C BC #### [facility] [address] [place], [place] [address] Marielena Arianna Neutrophils/100 WBC (Bld) 43.8 % Normal 43.0-75.0 [facility] Comment on above: Performed By: #### C BC #### [facility] [address] [place], [place] [address] Marielena Arianna Platelet mean volume (Bld) [Entitic vol] 10.4 fL Normal 9.5-13.5 [facility] Comment on above: Performed By: #### C BC #### [facility] [address] [place], [place] [address] Marielena Arianna Platelets (Bld) [#/Vol] 141 103/ul Critically low 150-450 [facility] Comment on above: Performed By: #### C BC #### [facility] [address] [place], [place] [address] Marielena Arianna RBC (Bld) [#/Vol] 4.14 106/ul Critically low 4.70-6.10 [facility] Comment on above: Performed By: #### C BC #### [facility] [address] [place], [place] [address] Marielena Arianna WBC (Bld) [#/Vol] 4.5 103/ul Normal 4.0-11.0 [facility] Comment on above: Performed By: #### C BC #### [facility] [address] [place], [place] [address] Marielena Arianna ETHANOL (BLD ALC)on 06-04-20 20 Ethanol [Mass/Vol] NOTE: 80 mg/dl is the legal limit for a blood alcohol level Normal [facility] Comment on above: Performed By: #### C HARINI WEST CMADM #### [facility] [address] [place], [place] [address] Marielena Arianna Ethanol [Mass/Vol] 347 mg/dL Normal [facility] Comment on above: Performed By: #### C MP, ETH, CMADM #### [facility] [address] [id number] Marielena Arianna PROF 14(COMP METB)on 020 Albumin [Mass/Vol] 3.5 g/dL Normal 3.5-5.0 [facility] Comment on above: Performed By: #### C JENNA, HARINI, CMADM #### [facility] [address] [id number] Marielena Arianna Albumin/Globulin [Mass ratio] 0.9 {ratio} Normal [facility] Comment on above: Performed By: #### C JENNA, HARINI, CMADM #### [facility] [address] [address] Marielena Arianna ALP [Catalytic activity/Vol] 54 U/L Normal 38-126 [facility] Comment on above: Performed By: #### C JENNA, HARINI, CMADM #### [facility] [address] [address] Marielena Arianna ALT [Catalytic activity/Vol] 109 U/L Critically high 21-72 [facility] Comment on above: Performed By: #### C JENNA, HARINI, CMADM #### [facility] [address] [place], [place] [address] Marielena Arianna Anion gap [Moles/Vol] 14.5 mmol/L Normal [facility] Comment on above: Performed By: #### C JENNA, HARINI, CMADM #### [facility] [address] [address] Marielena Arianna AST [Catalytic activity/Vol] 128 U/L Critically high 17-59 [facility] Comment on above: Performed By: #### C JENNA, ETH, CMADM #### [facility] [address] [phone] Marielena Arianna Bilirubin Ql (U) 0.3 mg/dL Normal 0.2-1.3 [facility] Comment on above: Performed By: #### C JENNA, ETH, CMADM #### [facility] [address] [id number] Marielena Arianna Calcium [Mass/Vol] 8.5 mg/dL Normal 8.4-10.2 [facility] Comment on above: Performed By: #### C HARINI WEST CMAKODAK #### [facility] [address] [place] [address] Marielena Arianna Chloride [Moles/Vol] 102 mmol/L Normal 98-107 [facility] Comment on above: Performed By: #### C HARINI WEST, CMADM #### [facility] [address] [place] [address] Marielena Arianna CO2 [Moles/Vol] 25.2 mmol/L Normal 22.0-30.0 [facility] Comment on above: Performed By: #### C HARINI WEST CMADM #### [facility] [address] [place] [address] Marielena Arianna Creatinine [Mass/Vol] 0.87 mg/dL Normal 0.66-1.25 [facility] Comment on above: Performed By: #### C HARINI WEST CMADM #### [facility] [address] [place] [address] Marielena Arianna EGFR-AF IVORIAN >60 Normal >=60 [facility] Comment on above: Performed By: #### C HARINI WEST CMADM #### [facility] [address] [place] [address] Marielena Arianna EGFR-NON AF IVORIAN >60 Normal >=60 [facility] Comment on above: Performed By: #### C HARINI WEST CMADM #### [facility] [address] [place] [address] Marielena Arianna Globulin (S) [Mass/Vol] 3.7 g/dL Normal [facility] Comment on above: Performed By: #### C HARINI WEST CMADM #### [facility] [address] [place] [address] Marielena Arianna Glucose [Mass/Vol] 107 mg/dL Critically high 74-106 [facility] Comment on above: Performed By: #### C HARINI WEST, CMADM #### [facility] [address] [place] [address] Marielena Arianna Potassium [Moles/Vol] 3.7 mmol/L Normal 3.4-5.0 [facility] Comment on above: Performed By: #### C HARINI WEST CMADM #### [facility] [address] [place] [address] Marielena Arianna Protein [Mass/Vol] 7.2 g/dL Normal 6.1-8.2 [facility] Comment on above: Performed By: #### C HARINI WEST CMADM #### [facility] [address] [place] [address] Marielena Arianna Sodium [Moles/Vol] 138 mmol/L Normal 137-[address] [facility] Comment on above: Performed By: #### C HARINI WEST CMADM #### [facility] [address] [place] [address] Marielena Arianna Urea nitrogen [Mass/Vol] 11.0 mg/dL Normal 9.0-20.0 [facility] Comment on above: Performed By: #### C HARINI WEST CMADM #### [facility] [address] [place], [place] [address] Marielena Arianna Urea nitrogen/Creatinin e [Mass ratio] 12.6 mg/mg Normal [facility] Comment on above: Performed By: #### C HARINI WEST CMADM #### [facility] [address] [place], [place] [address] Marielena Arianna Vital Signs Date Time Vital Sign Value Performing Clinician Facility 06-28-2024 08:14 Body height 177.8 cm [employer] Phone: [facility] 06-28-2024 08:140400 Body mass index (BMI) [Ratio] 27.55 kg/m2 [facility] Phone: [facility] 06-28-2024 08:14040 Body weight 87.09 kg [employer] Phone: [facility] 06-28-2024 08:14040 Diastolic blood pressure 84 mm[Hg] [facility] Phone: [facility] 06-28-2024 08:14-0400 Heart rate 85 /min Ning Wakefield DO Work Phone: [facility] 06-28-2024 08:14-0400 Respiratory rate 18 /min Ning Wakefield DO Work Phone: [facility] 06-28-2024 08:14-0400 SaO2% (BldA) [Mass fraction] 98 % Ning Wakefield DO Work Phone: [facility] 06-28-2024 08:14-0400 Systolic blood pressure 138 mm[Hg] Ning Wakefield DO Work Phone: [facility] 12-07-2018 16:37-0400 Body height 177.8 cm Chelsy Rosales CNP Work Phone: [facility] Work Phone: 12-07-2018 16:37-0400 Body mass index (BMI) [Ratio] 25.9 kg/m2 Chelsy Rosales CNP Work Phone: [facility] Work Phone: 12-07-2018 16:37-0400 Body surface area Derived from formula 2 m2 Chelsy Rosales CNP Work Phone: [facility] Work Phone: 12-07-2018 16:37-0400 Body temperature 96.6 [degF] Chelsy Rosales CNP Work Phone: [facility] Work Phone: 12-07-2018 16:37-0400 Body weight 81.76 kg Chelsy Rosales CNP Work Phone: [facility] Work Phone: 12-07-2018 16:37-0400 Diastolic blood pressure 80 mm[Hg] Chelsy Rosales CNP Work Phone: [facility] Work Phone: 12-07-2018 16:37-0400 Heart rate 54 /min Chelsy Coke LEAD DATA ARCHITECT Work Phone: [facility] Work Phone: 12-07-2018 16:37-0400 SaO2% (BldA) [Mass fraction] 98 % Chelsy Rosales LEAD DATA ARCHITECT Work Phone: [facility] Work Phone: 12-07-2018 16:37-0400 Systolic blood pressure 130 mm[Hg] Chelsy Rosales LEAD DATA ARCHITECT Work Phone: [facility] Work Phone: Encounters Encounter Date Encounter Type Care Provider Facility Start: 06-30-2024 End: 06-30-2024 ambulatory CLEM GALLARDO [facility] Start: 06-28-2024 End: 06-28-2024 Bamboo flowsheet Ning Wakefield DO Work Phone: [facility] Start: 06-28-2024 End: 06-28-2024 Bamboo flowsheet Ning Wakefeild DO Work Phone: [employer] [employer] [facility] Start: 06-28-2024 End: 06-28-2024 Postop follow up visit related to original px Ning Wakefield DO Work Phone: [employer] [facility] Comment on above: 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) Start: 06-28-2024 End: 06-28-2024 ambulatory NING WAKEFIELD Not Available Start: 06-20-2024 End: 06-20-2024 ambulatory Ning Wakefield [facility] Work Phone: Start: 06-20-2024 End: 06-20-2024 Departed Referred DO Ning Wakefield Work Phone: [facility] Start: 06-05-2024 End: 06-05-2024 ambulatory NING WAKEFIELD Not Available Start: 06-05-2020 End: 06-05-2020 Patient encounter procedure [facility] Facility: Start: 04-25-2019 End: 04-26-2019 Emergency department patient visit KAMALJIT J [facility] Start: 12-07-2018 End: 12-07-2018 FQ visit new patient Wendi Katz LEAD DATA ARCHITECT Work Phone: [facility] Work Phone: Procedures Date Procedure Procedure Detail Performing Clinician Start: 12-07-2018 HYPERTENSION (SYSTEMIC) Chelsy Rosales LEAD DATA ARCHITECT Work Phone: Start: 12-07-2018 Operative procedure on ankle Chelsy Rosales LEAD DATA ARCHITECT Work Phone: Start: 12-07-2018 Operative procedure on hand Chelsy Rosales LEAD DATA ARCHITECT Work Phone: Start: 12-07-2018 Surgical procedure Levar Rosales LEAD DATA ARCHITECT Work Phone: Plan of Treatment Date Care Activity Detail Author Start: 06-28-2024 End: 06-28-2025 Creatine Creatine Lab Routine Adenocarcinoma of rectum (HCC) (CMS/HCC) Expected: 06/28/2024 (Approximate), Expires: 06/28/2025 [facility] Comment on above: Expected: 06/28/2024 (Approximate), Expires: 06/28/2025 Start: 06-28-2024 End: 06-28-2025 CT CHEST ABDOMEN PELVIS W IV CONTRAST CT CHEST ABDOMEN PELVIS W IV CONTRAST Imaging Routine Adenocarcinoma of rectum (HCC) (CMS/HCC) Expected: 06/28/2024, Expires: 06/28/2025 [facility] Work Phone: Comment on above: Expected: 06/28/2024 , Expires: 06/28/2025 Start: 06-28-2024 End: 06-28-2025 MR Pelvis WO and W contrast IV MR pelvis w and wo contrast Imaging Routine Adenocarcinoma of rectum (HCC) (CMS/HCC) Expected: 06/28/2024, Expires: 06/28/2025 [facility] Comment on above: Expected: 06/28/2024 , Expires: 06/28/2025 Start: 06-28-2024 End: 06-28-2024 Patient encounter procedure 06/28/2024 8:15 AM EDT Office Visit [facility] [address] [place] [id number] Ning Wakefield DO [address] [place] [address] Arrived [facility] Comment on above: Arrived Immunizations Immunization Date Immunization Notes Care Provider Noemy enriquez 07-08-2017 influenza, high dose seasonal, preservative-free DO Ning Wakefield Work Phone: [facility] 06-07-2017 tetanus toxoid, redu mary jo diphtheria toxoid, and acellular pertussis vaccine, adsorbed DO iNng Wakefield Work Phone: [facility] Payers Date Payer Category Payer Self-pay [id number] 2022 Medicare [employer] [id number] 2022-Present [address] [place] [address] [id number] 2022 Medicare [id number] 1961 Unknown [id number] 1950 Unknown [id number] 1950 Unknown [id number] 1950 Unknown [id number] 1950 Unknown [id number] Medicare 1 - Medicare FQHC CGS PPS 2V [id number] Medicare Medicare [id number] Unknown [facility] [id number] Unknown [id number] Social History Date Type Detail Facility Assertion Finding of alcoh ol intake (finding) [facility] Work Phone: Assertion Gender identity finding (finding) [facility] Work Phone: Assertion Heterosexual (finding) [facility] Work Phone: Assertion Recovering alcoholic [facility] Work Phone: Assertion Finding of [facility]ua l orientation (finding) [facility] Work Phone: Tobacco smoking status Unknown if ever smoked [facility] Start: 08-11-2017 Tobacco smoking status NHIS Never smoked tobacco (finding) [facility] Start: 1950 Sex Assigned At Male [facility] Start: 1950 Sex assigned at Not on file [facility] Gender identity Not on file [facility] are NEGATED: Highlighted row Assertion Exposure to pollution (event) [facility] Work Phone: NEGATED: Highlighted row Assertion Tobacco user (finding) [facility] Work Phone: NEGATED: Highlighted row Assertion Finding relating to drug misuse behavior (finding) [facility] Work Phone: Medical Equipment Procedure Code Equipment [...] resident/fellow . I agree with the documentation. [facility] Gastroenterology New Patient Visit - History & Physical CHIEF COMPLAINT Chief Complaint Patient presents with New Patient adenocarcinoma of rectum HISTORY OF PRESENT ILLNESS: Roldan Velasquez is a 73 y.o. male has hx of a-fib for that patient is on eliquis, essential hypertension who recently had ER visit for hematochezia. Patient followed up with the GI at [facility] where he underwent colonoscopy which revealed rectal [...] PROT B12/Folate/Iron studies: No results found for: RHOCRFOT10 , FOLATE , IRON , TIBC , UIBC , IRONSAT , FERRITIN Viral Hepatitis No results found for: HEPAIGM , HAV , HEPBSAG , HEPBSAB , HEPBEAB , HEPBIGM , HEPBCAB , HEPBCOREAB , HBVNAT , HCVSCR , HEPCAB , HCVNAT , HCVPCR , HCVTMA Liver Workup No results found for: JENNIFER , SMOOTHMUSCAB , CERULOPLSM , [id number] , TTGA , IGA , TSH , FREET4 , AFP Pancreatitis No results found for: AMYLASE , LIPASE , TRIG , CALCIUM ASSESSMENT AND PLAN: Roldan Velasquez is a 73 y.o. male has hx of a-fib for that patient is on eliquis, essential hypertension who recently had ER visit for hematochezia. Patient followed up with the GI at [facility] where he underwent colonoscopy which revealed rectal [...] complaints at t (more content not included)... [facility] 06-28-2024 History of Present illness Narrative [...] Tobacco Use: High Risk (07/13/2023) Received from [employer] Patient History Smoking Tobacco Use: Never Smokeless Tobacco Use: Current Passive Exposure: Not on file Alcohol Use: Not on file Depression: Not at risk (01/07/2022) Received from [employer] PHQ-2 Total Score: 2 Physical Activity: Not on file REVIEW OF SYMPTOMS: Review of Systems All other systems reviewed and are negative. 10 systems were reviewed. Positives noted above. Remainder are negative per [facility] guidelines OBJECTIVE: Visit Vitals BP 138/84 [...] Information Document Information Other: Other PATHOLOGY REPORT [facility] [place] 06/20/2024 00:00 Attached To: Roldan Velasquez Source [...] Essence Wakefield DO documented in this encounter [facility] 06-16-2021 Note HNO ID: [id number] Author: Jean Christian MD Service: ? Author [...] Dr. Nath and discussed possibility of [facility] admission for alcohol withdrawal. ? I provided him with phone number for [facility] benefits coordinator. he also had a chance to speak with Ms. Sage ([employer] social welfare clerk). ? Follow-up with me once he is [...] makes him go on walks to [employer] and less going to the bar Mood: [...] PROMIS-10 Office Visit from 06/16/2021 in [facility] Visit from 07/22/2020 in [facility] T Score 57.7 44.9 [...] General Neurological Examination: (more content not included)... [facility] Evaluation note Assessments not supported for this document typeNo Assessments [facility] Work Phone: Evaluation note No assessment inform ation available [facility] Work Phone: Evaluation note Diagnosis Adenocarcinoma of rectum (HCC) (CMS/HCC)- Primary documented [facility] this encounter [facility] Narr[facility] History of Present Illness not supported for this document type No History of Present Illness [facility] [employer] [facility] Work Phone: Instructions Instructions not supported for this document type No Instructions [facility] Work Phone: patient problem outcome Narrative Includes: Evaluations & Outcomes for active Goals No Outcomes [facility] Work Phone: reason for referral (narrative)* Consultation (Routine) - Pending Review Specialty Diagnoses / Procedures Referred By Enedina colindres Referred To Contact Oncology Diagnoses Adenocarcinoma of rectum (HCC) (CMS/HCC) Procedures ME OFFICE/OUTPATIENT [facility] 60 MINUTES Ning Wakefield DO [address] [facility] [address] [place] [address] Aimee Singh MD [address] [place] [address] Referral ID Status Reason Start Date Expiration Date Visits Requested Visits Authorized [id number] Pending Review Specialty Services Required 06/28/2024 12/25/2024 1 1 * Imaging (Routine) - Pending Review Specialty Diagnoses / Procedures Referred By Enedina colindres Referred To Contact Radiology Diagnoses Adenocarcinoma of rectum (HCC) (CMS/HCC) Procedures MR pelvis w and wo contrast Ning Wakefield, DO [address] [place] [address] [facility] [address] [place] [address] Referral ID Status Reason Start Date Expiration Date V isits Requested Visits Authorized [id number] Pending Review 06/28/2024 12/25/2024 1 1 * Imaging (Routine) - Pending Review Specialty Diagnoses / Procedures Referred By Enedina colindres Referred To Contact Radiology Diagnoses Adenocarcinoma of rectum (HCC) (CMS/HCC) Procedures CT CHEST ABDOMEN PELVIS W IV CONTRAST Ning Wakefield, DO [address] [place] [address] [place] [address] Referral ID Status Reason Start Date Expiration Date V isits Requested Visits Authorized [id number] Pending Review 06/28/2024 12/25/2024 1 1 [facility] Narrative - Reported Review of Systems not supported for this document type No Review of Systems [facility] [employer] [facility] Work Phone: Summary Purpose Family History [...] DATE CREATED AUTHOR AUTHOR'S ORGANIZ ATION 11/05/2021 [facility] DATE CREATED AUTHOR AUTHOR'S ORGANIZ ATION 06/22/2024 [facility] DATE CREATED AUTHOR AUTHOR'S ORGANIZ ATION 06/29/2024 [facility] EPIC DATE CREATED AUTHOR AUTHOR'S ORGANIZ ATION 07/04/2024 [facility] Care Teams (unrecognized sec tion and content) Team Status: Inactive Member Role Status Dates Ning Wakefield DO Attending Provider Active Star t: June 20, 2024 End: June 20, 2024 [employer] Relationship Specialty Start Date End Date Shabnam Villarreal MD [address] [address] PCP - General Behavioral Health 06/05/24 Hog Killer Relationship Specialty Start Date End Date Shabnam Villarreal MD [address] [facility] [place] [address] PCP - General Behavioral Health 06/05/24 Goals [...] BE BASED ON THE PRIMARY CLINICAL RECORDS. [facility] [employer] provides no warranty or guarantee of the accuracy or completeness of information in this document.
--- NOTE | 2024-07-14 07:38 | MR_ITS ---
The [address] [address] Patient Name: ROLDAN COTE MRN: [id number] date: 1950 Sex: M Assigned Patient Location: MRI Current Patient Location: MRI Accession/Order Number: [id number] Exam Date: 07/14/2024 08:00 Report Date: 07/18/2024 15:01 At the request of: NING CAMARENA Procedure: MR pelvis wo/w con EXAM: MR pelvis wo/w con 07/14/2024 COMPARISON STUDY: CT of the abdomen and pelvis with contrast 07/11/2024. TECHNIQUE: Coronal T1 and fat-saturated STIR, sagittal T2 as well as axial T1, fat saturated STIR and fat-saturated T1-weighted images were obtained. Fat-saturated coronal and axial T1 weighted images were also obtained following administration of intravenous gadolinium contrast. HISTORY: Adenocarcinoma Of Rectum C20 FINDINGS: There is partial visualization of lumbar dextrocurvature with multilevel degenerative changes of the spine noted. Endorectal contrast was not utilized. Circumferential mid rectal mass is identified again. The inferior margin is noted approximately 8.3 cm above the anal verge. On the sagittal T2-weighted images the lesion has length estimated at 4.7 cm. On the axial images there is slight linear stranding of the perirectal fat seen posterior laterally toward the right. On this image the rectal mass measures at least 3.7 x 3.2 cm. Single wall thickness posteriorly is 2.0 cm. Transmural involvement is identified. There are a few punctate indeterminate perirectal nodules ranging in size between 2 and 4 mm. The presacral nodules toward the right for example measures 4 mm on image were 8 of series 8. Incidental note of sigmoid diverticular disease. Urinary bladder, prostate and atrophic appearing seminal vesicles demonstrate no acute abnormality. No significantly enlarged intrapelvic or inguinal type nodes noted. The small [id number] axial T1-weighted images obtained with and without fat saturation are nondiagnostic marred by signal degradation type artifact. On the large [id number]-cuga postcontrast images the lesion demonstrates heterogeneous hyperenhancement, seen for example on axial postcontrast image #11. MR/MR pelvis wo/w con IMPRESSION: 1. Dedicated rectal mass protocol was not utilized. Endorectal contrast was also not visualized. 2. Circumferential transmural mid rectal mass with length estimated at 4.7 cm is located approximately 8.3 cm above the anal verge. This has the appearance of primary rectal carcinoma. There are a few tiny indeterminate perirectal nodules ranging size between 2 and 4 mm. Estimated T stage T3N1. 3. Sigmoid diverticulosis. Electronically authenticated by: JACKIE NAPIER Date: 07/18/2024 15:01
== END 2024-07-14 07:28 | disposition home or self-care (01) ==
LOC: MRI 07:28
PROVIDERS: Visit Provider Surgery
DX: C20 Malignant neoplasm of rectum (principal)
CPT/HCPCS: 72197; A9575

== ENCOUNTER 2024-07-17 15:46 | Outpatient (OUT) | payer MEDICARE, SELFPAY ==
--- OUTSIDE RECORDS SUMMARY | 2024-07-17 15:51 | XMS_ITS | CCD ---
Author Organization [place] [facility] Care Team Providers Care Life Skills Coordinator Volunteer Name Role Phone KAMALJIT SILVA Primary Care Unavailable MISC, DOCTOR Primary Care Unavailable SAVANNAH HERNÁNDEZ Admitting Unavailable SAVANNAH HERNÁNDEZ Attending Unavailable BLAIR KOCH Consulting Unavailable GRAHAM LINN V Consulting Unavailable MARKER, ROHIT Consulting Unavailable SAVANNAH HERNÁNDEZ Consulting Unavailable SAMARTRUBENS GIBRAN Consulting Unavailable Chelsy Rosales CNP Primary Care Provider DO Ning Wakefield Attending Provider Ning Wakefield Attending Unavailable Ning Wakefield Admitting Unavailable NING WAKEFIELD Attending Unavailable NING WAKEFIELD Attending Unavailable Phil MINAYA, [facility] Primary Care Provide r CLEM GALLARDO Attending Unavailable NING WAKEFIELD Referring Unavailable Allergies Allergy Classification Reported Allergen(s) Allergy Type Date of Onset Reaction(s) Facility (1 source) -No Known Enviornmental Allergies; Translations: [-No Known Enviornmental Allergies] Allergy to substance 12-07-2018 [facility] Work Phone: Medications Current Medications Medication [...] PO Daily 30 July 08, 2017 12:00am [place] (No Known Home Meds) (1 source) Start: 7 Crary (No Known Home Meds) Active June 29, [...] unspecified] 07-01-2017 Episodic Other aftercare (1 source) residential (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; Translations: [FDC CURRENT USE OF ASPIRIN] Onset: 0 Episodic Other aftercare (1 source) Other longterm (current) drug therapy; Translations: [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] Onset: 0 Episodic Other [...] Facil ity Office Visiton 06-30-2024 Follow-up visit [id number] Roldan Velasquez 1950 M Date Provider Department Center 06/30/2024 375-CLEM GALLARDO [facility] GI [facility] No family history on file Level of Service:18192 NC OFFICE/OUTPATIENT NEW MODERATE MDM 45 MINUTES (GC) Reason for Visit and Comments: 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 Normal [facility] Luther 06-20-2024 L Specimen: [id number] Received: 06/20/24 Status: CECILIA Garza Num: [id number] Spec Type: Surgical Subm Dr: Ning Wakefield DO Tissues: A Colon Biopsy (RECTAL MASS BX AT 5CM) Procedures: HE/4, Gross/Micro L4 Age/ Patient Sex Location Account Attending Physician Roldan Velasquez 73/M [facility] [id number] Ning Wakefield DO SPEC NUM: [id number] RECD: 06/20/24 STATUS: CECILIA GARZA NUM: [id number] ANITA: 06/20/[address]: Ning Wakefield DO ENTERED: 06/20/[address]: Luana Brown SPEC TYPE: Surgical DEPT: FER PERES ENTERED BY: [id number] RECV BY: [id number] ORDERED: HE/, Gross/Micro L4 ORDERED: , Gross/Micro [...] cassette A1. CPT Codes 88 305 Specimen: [id number] Received: 06/20/24 Status: CECILIA Garza Num: [id number] Spec Type: Surgical Subm Dr: Ning Wakefield DO Tissues: A Colon Biopsy (RECTAL MASS BX AT 5CM) Procedures: /4, Gross/Micro L4 Patient: TimurRoldan [id number] (Continued) Signed (signature on file) Mumtaz Amor MD 06/22/24 1845 Normal [facility] CNOVon 06-16-2021 CNOV Office Visit (NREUS2) ROLDAN VELASQUEZ ([id number]) 1950 M Date Time Provider Department 06/16/21 [...] applicable. ? I emphasized follow-up with Dr. aNth and discussed possibility of in-patient [facility] admission for alcohol withdrawal. ? I provided him with phone number for [facility] traffic coordinator. he also had a chance to [...] which makes him go on walks to [place] and less going to the bar Mood: [...] PROMIS-10 Office Visit from 06/16/2021 in [facility] Office Visit from 07/22/2020 [facility] T Score 57.7 44.9 [...] absent Extre (more content not included)... Normal [facility] [place] [facility] CONon [address] [facility] CON EXAMINATION: CT [facility] CON HISTORY: Head injury. COMPARISON: CT [...] GIBRAN WAY Date: 2020-06-04 23:44 Normal [facility] CT HEAD WO CONon 06-05-2020 CT [...] GRAHAM LINN Date: 2020-06-04 22:07 Normal [facility] XR CHEST 1 Von 06-05-2020 XR [...] GRAHAM LINN Date: 2020-06-04 22:13 Normal [facility] XR PELVIS 1_2 VIEWSon 2019 XR [...] GRAHAM LINN Date: 2020-06-04 22:16 Normal [facility] XR SHOULDER LT 2V or >on [...] GRAHAM LINN Date: 2020-06-04 22:15 Normal [facility] CARDIAC SHANE ADMITon 020 CK [Catalytic activity/Vol] 84 U/L Normal 55-170 [facility] Comment on above: Performed By: #### C HARINI WEST, CMADM #### [facility] [address] [place] [address] Marielena Keller CK.MB [Mass/Vol] 1.08 ng/mL Normal <=2.37 [facility] Comment on above: Performed By: #### C HARINI WEST, CMADM #### [facility] [address] [place] [address] Marielenaemma Keller INR Coag (Bld) [Relative time] SEE BELOW Normal [facility] Comment on above: Result Comment: <0.0 34 ng/ml NEGATIVE 0.034-0.119 INDETERMINATE 0.120 AMI CUT OFF Performed By: #### C HARINI WEST, CMADM #### [facility] [address] [place] [address] Marielena Arianna KWABENA 58.0 ng/mL Normal <=121.0 [facility] Comment on above: Performed By: #### C HARINI WEST, CMADM #### [facility] [address] [place] [address] Marielena Arianna TROP <0.012 Normal <=0.034 [facility] Comment on above: Performed By: #### C HARINI WEST, CMADM #### [facility] [address] [place], [place] [id number] Marielena Arianna CBC AUTO DIFFon 06-04-2020 Basophils (Bld) [#/Vol] 0.1 103/ul Normal 0.0-0.1 [facility] Comment on above: Performed By: #### C BC #### [facility] [address] [place] [address] Marielena Arianna Basophils/100 WBC (Bld) 1.5 % Normal 0.2-2.0 [facility] Comment on above: Performed By: #### C BC #### [facility] [address] [place] [address] Marielena Arianna Eosinophils (Bld) [#/Vol] 0.1 103/ul Normal 0.0-0.7 [facility] Comment on above: Performed By: #### C BC #### [facility] [address] [place] [address] Marielena Arianna Eosinophils/100 WBC (Bld) 2.6 % Normal 0.9-7.0 [facility] Comment on above: Performed By: #### C BC #### [facility] [address] [place] [address] Marielena Arianna Erythrocyte distribution width (RBC) [Ratio] 13.3 % Normal 11.0-15.0 [facility] Comment on above: Performed By: #### C BC #### [facility] [address] [place] [address] Marielena Arianna Hematocrit (Bld) [Volume fraction] 39.5 % Critically low 42.0-54.0 [facility] Comment on above: Performed By: #### C BC #### [facility] [address] [place] [address] Marielena Arianna Hemoglobin (Bld) [Mass/Vol] 13.3 g/dL Critically low 14.0-18.0 [facility] Comment on above: Performed By: #### C BC #### [facility] [address] [place] [address] Marielena Arianna IG # 0.02 10e3/ul Normal 0.00-0.03 [facility] Comment on above: Performed By: #### C BC #### [facility] [address] [place] [address] Marielena Arianna IG % 0.4 % Normal 0.0-0.5 [facility] Comment on above: Performed By: #### C BC #### [facility] [address] [place] [address] Marielena Arianna Lymphocytes (Bld) [#/Vol] 1.7 103/ul Normal 1.2-3.8 [facility] Comment on above: Performed By: #### C BC #### [facility] [address] [place], [place] [id number] Marielena Arianna Lymphocytes/100 WBC (Bld) 38.0 % Normal 20.5-60.0 [facility] Comment on above: Performed By: #### C BC #### [facility] [address] [place], [place] [phone] Marielena Arianna MANUAL DIFF REQ NO Normal [facility] Comment on above: Performed By: #### C BC #### [facility] [address] [place], [place] [id number] Marielena Arianna MCH (RBC) [Entitic mass] 32.1 pg Normal 25.9-34.0 [facility] Comment on above: Performed By: #### C BC #### [facility] [address] [place], [place] [id number] Marielenaemma Zafaren MCHC (RBC) [Mass/Vol] 33.7 g/dL Normal 29.9-35.2 [facility] Comment on above: Performed By: #### C BC #### [facility] [address] [place], [place] [id number] Marielenaemma Zafaren MCV (RBC) [Entitic vol] 95.4 fL Critically high 80.0-94.0 [facility] Comment on above: Performed By: #### C BC #### [facility] [address] [place], [place] [id number] Marielena Arianna Monocytes (Bld) [#/Vol] 0.6 103/ul Normal 0.3-0.8 [facility] Comment on above: Performed By: #### C BC #### [facility] [address] [place], [place] [id number] Marielena Arianna Monocytes/100 WBC (Bld) 13.7 % Critically high 1.7-12.0 [facility] Comment on above: Performed By: #### C BC #### [facility] [address] [place], [place] [id number] Marielena Arianna Neutrophils (Bld) [#/Vol] 2.0 103/ul Normal 1.4-6.5 [facility] Comment on above: Performed By: #### C BC #### [facility] [address] [place], [place] [id number] Marielena Arianna Neutrophils/100 WBC (Bld) 43.8 % Normal 43.0-75.0 [facility] Comment on above: Performed By: #### C BC #### [facility] [address] [place], [place] [id number] Marielena Arianna Platelet mean volume (Bld) [Entitic vol] 10.4 fL Normal 9.5-13.5 [facility] Comment on above: Performed By: #### C BC #### [facility] [address] [place], [place] [phone] Marielena Arianna Platelets (Bld) [#/Vol] 141 103/ul Critically low 150-450 [facility] Comment on above: Performed By: #### C BC #### [facility] [address] [place], [place] [phone] Marielena Arianna RBC (Bld) [#/Vol] 4.14 106/ul Critically low 4.70-6.10 [facility] Comment on above: Performed By: #### C BC #### [facility] [address] [place], [place] [address] Marielena Arianna WBC (Bld) [#/Vol] 4.5 103/ul Normal 4.0-11.0 [facility] Comment on above: Performed By: #### C BC #### [facility] [address] [place], [place] [phone] Marielena Arianna ETHANOL (BLD ALC)on 06-04-20 20 Ethanol [Mass/Vol] NOTE: 80 mg/dl is the legal limit for a blood alcohol level Normal [facility] Comment on above: Performed By: #### C HARINI WEST CMADM #### [facility] [address] [place], [place] [phone] Marielena Arianna Ethanol [Mass/Vol] 347 mg/dL Normal [facility] Comment on above: Performed By: #### C MP, ETH, CMADM #### [facility] [address] [phone] Marielena Arianna PROF 14(COMP METB)on 020 Albumin [Mass/Vol] 3.5 g/dL Normal 3.5-5.0 [facility] Comment on above: Performed By: #### C JENNA, HARINI, CMADM #### [facility] [address] [phone] Marielena Arianna Albumin/Globulin [Mass ratio] 0.9 {ratio} Normal [facility] Comment on above: Performed By: #### C JENNA, HARINI, CMADM #### [facility] [address] [address] Marielena Arianna ALP [Catalytic activity/Vol] 54 U/L Normal 38-126 [facility] Comment on above: Performed By: #### C JENNA, HARINI, CMADM #### [facility] [address] [address] Marielena Arianna ALT [Catalytic activity/Vol] 109 U/L Critically high 21-72 [facility] Comment on above: Performed By: #### C JENNA, HARINI, CMADM #### [facility] [address] [place], [place] [phone] Marielena Arianna Anion gap [Moles/Vol] 14.5 mmol/L Normal [facility] Comment on above: Performed By: #### C JENNA, HARINI, CMADM #### [facility] [address] [address] Marielena Arianna AST [Catalytic activity/Vol] 128 U/L Critically high 17-59 [facility] Comment on above: Performed By: #### C JENNA, ETH, CMADM #### [facility] [address] [phone] Marielena Arianna Bilirubin Ql (U) 0.3 mg/dL Normal 0.2-1.3 [facility] Comment on above: Performed By: #### C JENNA, ETH, CMADM #### [facility] [address] [phone] Marielena Arianna Calcium [Mass/Vol] 8.5 mg/dL Normal 8.4-10.2 [facility] Comment on above: Performed By: #### C HARINI WEST CMAKODAK #### [facility] [address] [place] [address] Marielena Arianna Chloride [Moles/Vol] 102 mmol/L Normal 98-107 [facility] Comment on above: Performed By: #### C HARINI WEST, CMADM #### [facility] [address] [place] [address] Marielena Arianna CO2 [Moles/Vol] 25.2 mmol/L Normal 22.0-30.0 [facility] Comment on above: Performed By: #### C HARINI WEST CMADM #### [facility] [address] [place] [address] Marielena Arianna Creatinine [Mass/Vol] 0.87 mg/dL Normal 0.66-1.25 [facility] Comment on above: Performed By: #### C HARINI WEST CMADM #### [facility] [address] [place] [address] Marielena Arianna EGFR-AF SAMMARINESE >60 Normal >=60 [facility] Comment on above: Performed By: #### C HARINI WEST CMADM #### [facility] [address] [place] [address] Marielena Arianna EGFR-NON AF SAMMARINESE >60 Normal >=60 [facility] Comment on above: Performed By: #### C HARINI WEST CMADM #### [facility] [address] [place] [address] Marielena Arianna Globulin (S) [Mass/Vol] 3.7 g/dL Normal [facility] Comment on above: Performed By: #### C HARINI WEST CMADM #### [facility] [address] [place] [address] Marielena Arianna Glucose [Mass/Vol] 107 mg/dL Critically high 74-106 [facility] Comment on above: Performed By: #### C HARINI WEST, CMADM #### [facility] [address] [place] [address] Marielena Arianna Potassium [Moles/Vol] 3.7 mmol/L Normal 3.4-5.0 [facility] Comment on above: Performed By: #### C HARINI WEST CMADM #### [facility] [address] [place] [address] Marielena Arianna Protein [Mass/Vol] 7.2 g/dL Normal 6.1-8.2 [facility] Comment on above: Performed By: #### C HARINI WEST CMADM #### [facility] [address] [place] [address] Marielena Arianna Sodium [Moles/Vol] 138 mmol/L Normal 137-145 [facility] Comment on above: Performed By: #### C HARINI WEST CMADM #### [facility] [address] [place] [address] Marielena Arianna Urea nitrogen [Mass/Vol] 11.0 mg/dL Normal 9.0-20.0 [facility] Comment on above: Performed By: #### C HARINI WEST CMADM #### [facility] [address] [place], [place] [address] Marielena Arianna Urea nitrogen/Creatinin e [Mass ratio] 12.6 mg/mg Normal [facility] Comment on above: Performed By: #### C HARINI WEST CMADM #### [facility] [address] [place], [place] [address] Marielena Arianna Vital Signs Date Time Vital Sign Value Performing Clinician Facility 06-28-2024 08:14 Body height 177.8 cm [employer] Phone: [facility] 06-28-2024 08:140400 Body mass index (BMI) [Ratio] 27.55 kg/m2 [employer] Phone: [facility] 06-28-2024 08:14040 Body weight 87.09 kg [employer] Phone: [facility] 06-28-2024 08:14040 Diastolic blood pressure 84 mm[Hg] [employer] Phone: [facility] 06-28-2024 08:14-0400 Heart rate 85 /min Ning Wakefield DO Work Phone: [facility] 06-28-2024 08:14-0400 Respiratory rate 18 /min Ning Wakefield DO Work Phone: [facility] 06-28-2024 08:14-0400 SaO2% (BldA) [Mass fraction] 98 % Ning Wakefield DO Work Phone: [facility] 06-28-2024 08:14-0400 Systolic blood pressure 138 mm[Hg] Ning Wakefield DO Work Phone: [facility] 12-07-2018 16:37-0400 Body height 177.8 cm Chelsy Rosales CNP Work Phone: [facility] Work Phone: 12-07-2018 16:37-0400 Body mass index (BMI) [Ratio] 25.9 kg/m2 Chelsy Rosales CNP Work Phone: [facility] Work Phone: 12-07-2018 16:37-0400 Body surface area Derived from formula 2 m2 Chelsy Rosales CNP Work Phone: [facility] Work Phone: 12-07-2018 16:37-0400 Body temperature 96.6 [degF] Chelsy Rosales CNP Work Phone: [facility] Work Phone: 12-07-2018 16:37-0400 Body weight 81.76 kg Chelsy Rosales CNP Work Phone: [facility] Work Phone: 12-07-2018 16:37-0400 Diastolic blood pressure 80 mm[Hg] Chelsy Rosales CNP Work Phone: [facility] Work Phone: 12-07-2018 16:37-0400 Heart rate 54 /min Chelsy Sibley [employer] Work Phone: [facility] Work Phone: 12-07-2018 16:37-0400 SaO2% (BldA) [Mass fraction] 98 % Chelsy Rosales [employer] Work Phone: [facility] Work Phone: 12-07-2018 16:37-0400 Systolic blood pressure 130 mm[Hg] Chelsy Rosales [employer] Work Phone: [facility] Work Phone: Encounters Encounter Date Encounter Type Care Provider Facility Start: 06-30-2024 End: 06-30-2024 ambulatory CLEM GALLARDO [facility] Start: 06-28-2024 End: 06-28-2024 Bamboo flowsheet Ning Wakefield DO Work Phone: [facility] Start: 06-28-2024 End: 06-28-2024 Bamboo flowsheet Ning Wakefield DO Work Phone: [facility] Start: 06-28-2024 End: 06-28-2024 Postop follow up visit related to original px Ning Wakefield DO Work Phone: [facility] Comment on above: 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) Start: 06-28-2024 End: 06-28-2024 ambulatory NING WAKEFIELD Not Available Start: 06-20-2024 End: 06-20-2024 ambulatory Ning Wakefield [facility] Work Phone: Start: 06-20-2024 End: 06-20-2024 Departed Referred DO Ning Wakefield Work Phone: [facility] Start: 06-05-2024 End: 06-05-2024 ambulatory NING WAKEFIELD Not Available Start: 06-05-2020 End: 06-05-2020 Patient encounter procedure [facility] Facility: Start: 04-25-2019 End: 04-26-2019 Emergency department patient visit KAMALJIT J [facility] Start: 12-07-2018 End: 12-07-2018 FQ visit new patient Wendi Katz [employer] Work Phone: [facility] Work Phone: Procedures Date Procedure Procedure Detail Performing Clinician Start: 12-07-2018 HYPERTENSION (SYSTEMIC) Chelsy Rosales [employer] Work Phone: Start: 12-07-2018 Operative procedure on ankle Chelsy Rosales [employer] Work Phone: Start: 12-07-2018 Operative procedure on hand Chelsy Rosales [employer] Work Phone: Start: 12-07-2018 Surgical procedure Levar Rosales [employer] Work Phone: Plan of Treatment Date Care Activity Detail Author Start: 06-28-2024 End: 06-28-2025 Creatine Creatine Lab Routine Adenocarcinoma of rectum (HCC) (CMS/HCC) Expected: 06/28/2024 (Approximate), Expires: 06/28/2025 [employer] Comment on above: Expected: 06/28/2024 (Approximate), Expires: 06/28/2025 Start: 06-28-2024 End: 06-28-2025 CT CHEST ABDOMEN PELVIS W IV CONTRAST CT CHEST ABDOMEN PELVIS W IV CONTRAST Imaging Routine Adenocarcinoma of rectum (HCC) (CMS/HCC) Expected: 06/28/2024, Expires: 06/28/2025 [employer] Work Phone: Comment on above: Expected: 06/28/2024 , Expires: 06/28/2025 Start: 06-28-2024 End: 06-28-2025 MR Pelvis WO and W contrast IV MR pelvis w and wo contrast Imaging Routine Adenocarcinoma of rectum (HCC) (CMS/HCC) Expected: 06/28/2024, Expires: 06/28/2025 [employer] Comment on above: Expected: 06/28/2024 , Expires: 06/28/2025 Start: 06-28-2024 End: 06-28-2024 Patient encounter procedure 06/28/2024 8:15 AM EDT Office Visit [facility] [address] [place] [id number] Ning Wakefield DO [address] [place] [address] Arrived [facility] Comment on above: Arrived Immunizations Immunization Date Immunization Notes Care Provider Noemy enriquez 07-08-2017 influenza, high dose seasonal, preservative-free DO Ning Wakefield Work Phone: [facility] 06-07-2017 tetanus toxoid, redu mary jo diphtheria toxoid, and acellular pertussis vaccine, adsorbed DO Ning Wakefield Work Phone: [facility] Payers Date Payer Category Payer Self-pay [id number] 2022 Medicare [employer] [id number] 2022-Present [address] [place] [address] [id number] 2022 Medicare [id number] 1961 Unknown [id number] 1950 Unknown [id number] 1950 Unknown [id number] 1950 Unknown [id number] 1950 Unknown [id number] Medicare 1 - Medicare FQHC CGS PPS 2V [id number] Medicare Medicare [id number] Unknown [facility] [id number] Unknown [id number] Social History Date Type Detail Facility Assertion Finding of alcoh ol intake (finding) [facility] Work Phone: Assertion Gender identity finding (finding) [facility] Work Phone: Assertion Heterosexual (finding) [facility] Work Phone: Assertion Recovering alcoholic [facility] Work Phone: Assertion Finding of sexua l orientation (finding) [facility] Work Phone: Tobacco smoking status Unknown if ever smoked [facility] Start: 08-11-2017 Tobacco smoking status NHIS Never smoked tobacco (finding) [facility] Start: 1950 Sex Assigned At Male [facility] Start: 1950 Sex assigned at Not on file [facility] Gender identity Not on file [facility] are NEGATED: Highlighted row Assertion Exposure to pollution (event) [facility] Work Phone: NEGATED: Highlighted row Assertion Tobacco user (finding) Health [facility]placed By [facility] Work Phone: NEGATED: Highlighted row Assertion Finding relating to drug misuse behavior (finding) [facility] Work Phone: Medical Equipment Procedure Code [...] resident/fellow . I agree with the documentation. [facility] Gastroenterology New Patient Visit - History & Physical CHIEF COMPLAINT Chief Complaint Patient presents with New Patient adenocarcinoma of rectum HISTORY OF PRESENT ILLNESS: Roldan Velasquez is a 73 y.o. male has hx of a-fib for that patient is on eliquis, essential hypertension who recently had ER visit for hematochezia. Patient followed up with the GI at [facility] where he underwent colonoscopy which revealed rectal [...] PROT B12/Folate/Iron studies: No results found for: [id number] , FOLATE , IRON , TIBC , UIBC , IRONSAT , FERRITIN Viral Hepatitis No results found for: HEPAIGM , HAV , HEPBSAG , HEPBSAB , HEPBEAB , HEPBIGM , HEPBCAB , HEPBCOREAB , HBVNAT , HCVSCR , HEPCAB , HCVNAT , HCVPCR , HCVTMA Liver Workup No results found for: JENNIFER , SMOOTHMUSCAB , CERULOPLSM , [id number] , TTGA , IGA , TSH , FREET4 , AFP Pancreatitis No results found for: AMYLASE , LIPASE , TRIG , CALCIUM ASSESSMENT AND PLAN: Roldan Velasquez is a 73 y.o. male has hx of a-fib for that patient is on eliquis, essential hypertension who recently had ER visit for hematochezia. Patient followed up with the GI at [facility] where he underwent colonoscopy which revealed rectal [...] complaints at t (more content not included)... [facility] 06-28-2024 History of Present illness Narrative Images [...] Tobacco Use: High Risk (07/13/2023) Received from [facility] Patient History Smoking Tobacco Use: Never Smokeless Tobacco Use: Current Passive Exposure: Not on file Alcohol Use: Not on file Depression: Not at risk (01/07/2022) Received from [facility] PHQ-2 Total Score: 2 Physical Activity: Not on file REVIEW OF SYMPTOMS: Review of Systems All other systems reviewed and are negative. 10 systems were reviewed. Positives noted above. Remainder are negative per [facility] guidelines OBJECTIVE: Visit Vitals BP 138/84 [...] Information Document Information Other: Other PATHOLOGY REPORT [facility] 06/20/2024 00:00 Attached To: Roldan Velasquez Source [...] Essence Wakefield DO documented in this encounter [facility] 06-16-2021 Note HNO ID: [id number] Author: Jean Christian MD Service: ? Author [...] Dr. Nath and discussed possibility of in-patient [facility] admission for alcohol withdrawal. ? I provided him with phone number for [facility] traffic coordinator. 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 [facility] Evaluation note Assessments not supported for this document typeNo Assessments [facility] Work Phone: Evaluation note No assessment inform ation available [facility] Work Phone: Evaluation note Diagnosis Adenocarcinoma of rectum (HCC) (CMS/HCC)- Primary documented [facility] this encounter [facility] Narrative History of Present Illness not supported for this document type No History of Present Illness [facility] Work Phone: Instructions Instructions not supported for this document type No Instructions [facility] Work Phone: patient problem outcome Narrative Includes: Evaluations & Outcomes for active Goals No Outcomes [facility] Work Phone: reason for referral (narrative)* Consultation (Routine) - Pending Review Specialty Diagnoses / Procedures Referred By Enedina colindres Referred To Contact Oncology Diagnoses Adenocarcinoma of rectum (HCC) (CMS/HCC) Procedures [place] OFFICE/OUTPATIENT [facility] 60 MINUTES Ning Wakefield DO [address] [facility] [address] [place] [address] Aimee Singh MD [address] [place] [address] Referral ID Status Reason Start Date Expiration Date Visits Requested Visits Authorized [id number] Pending Review Specialty Services Required 06/28/2024 12/25/2024 1 1 * Imaging (Routine) - Pending Review Specialty Diagnoses / Procedures Referred By Enedina colindres Referred To Contact Radiology Diagnoses Adenocarcinoma of rectum (HCC) (CMS/HCC) Procedures MR pelvis w and wo contrast Ning Wakefield, DO [address] [place] [address] [facility] [address] [place] [address] Referral ID Status Reason Start Date Expiration Date V isits Requested Visits Authorized [id number] Pending Review 06/28/2024 12/25/2024 1 1 * Imaging (Routine) - Pending Review Specialty Diagnoses / Procedures Referred By Enedina colindres Referred To Contact Radiology Diagnoses Adenocarcinoma of rectum (HCC) (CMS/HCC) Procedures CT CHEST ABDOMEN PELVIS W IV CONTRAST Ning Wakefield, DO [address] [place] [address] [place] [address] Referral ID Status Reason Start Date Expiration Date V isits Requested Visits Authorized [id number] Pending Review 06/28/2024 12/25/2024 1 1 [facility] Narrative - Reported Review of Systems not supported for this document type No Review of Systems [facility] Work Phone: Summary Purpose Family History [...] DATE CREATED AUTHOR AUTHOR'S ORGANIZ ATION 11/05/2021 [facility] DATE CREATED AUTHOR AUTHOR'S ORGANIZ ATION 06/22/2024 [facility] DATE CREATED AUTHOR AUTHOR'S ORGANIZ ATION 06/29/2024 [facility] EPIC DATE CREATED AUTHOR AUTHOR'S ORGANIZ ATION 07/04/2024 [facility] Care Teams (unrecognized sec tion and content) Team Status: Inactive Member Role Status Dates Ning Wakefield DO Attending Provider Active Star t: June 20, 2024 End: June 20, 2024 Life Skills Coordinator Volunteer Relationship Specialty Start Date End Date Shabnam Villarreal MD [address] [facility] [place] [address] PCP - General Behavioral Health 06/05/24 Life Skills Coordinator Volunteer Relationship Specialty Start Date End Date Shabnam Villarreal MD [address] [place] [address] PCP - General Behavioral Health 06/05/24 Goals [...] BE BASED ON THE PRIMARY CLINICAL RECORDS. [facility] [employer] provides no warranty or guarantee of the accuracy or completeness of information in this document.
--- NOTE | 2024-07-17 17:02 | PE_ITS ---
The [address] [address] Patient Name: ROLDAN COTE MRN: [id number] date: 1950 Sex: M Assigned Patient Location: PETCT Current Patient Location: PETCT Accession/Order Number: [id number] Exam Date: 07/17/2024 16:03 Report Date: 07/20/2024 17:57 At the request of: NEYMAR LERMA Procedure: PET skull to mid thigh PET/CT: HISTORY: Colorectal carcinoma with no history of chemotherapy or radiation therapy or reported history of surgery. COMPARISON: MRI pelvis 07/14/2024, CT chest abdomen pelvis 07/11/2024, CT abdomen pelvis 05/15/2024. TECHNIQUE: The patient was injected with 12.74 mCi of F-18 fluorodeoxyglucose (FDG), and an emission scan was performed from the base of the skull to the mid thigh. Noncontrast CT was performed for attenuation correction and anatomic localization. The blood glucose level was 91 mg/dl. The uptake time was 54 minutes. FINDINGS: HEAD AND NECK: There is a physiologic distribution of activity, with no hypermetabolic foci. CHEST: The SUVmax of the mediastinum = 3.2 using the patient's body weight as the normalization method. There is an enlarged right paratracheal lymph node measuring 1.8 x 1.4 cm with FDG uptake, SUV max 3.4 which is only slightly greater than the mediastinum and this has a fatty hilum. It also appears stable in size. The previously noted patchy groundglass and linear opacities in the lungs seen on the CT scan from 07/11/2024 appear essentially stable, most prominently seen in the right upper lobe. There is some associated minimal FDG uptake in the right upper lobe on image 78 for example with SUV max 2.6. Some interlobular septal thickening is also seen in the right upper lobe. There are no hypermetabolic pulmonary nodules. ABDOMEN AND PELVIS: There is a focus of intense increased activity within the rectum on image 234 with SUV max 20 corresponding to wall thickening on CT consistent with patient's known malignancy. There is a hypermetabolic right inguinal lymph node on image 265 with SUV max 4 measuring 2.3 x 1.8 cm and there is a hypermetabolic left inguinal lymph node on image 275 with SUV max 2.9 measuring 1.5 x 1.3 cm. These appear to be out of [id number] on the previous abdominal CT scans. There is an otherwise physiologic distribution of activity. MUSCULOSKELETAL SYSTEM: There is a focus of increased activity anterior to the left femoral head neck junction, likely stress-related or inflammatory in nature. There is also linear stress related or inflammatory activity anterior to the right femoral head. There is a normal distribution of activity in the bone marrow. ADDITIONAL CT FINDINGS: The main pulmonary artery is dilated at 3.4 cm suspicious for pulmonary hypertension. There is moderate cardiomegaly, mild coronary artery calcification and there is low attenuation of the blood in the cardiac chambers consistent with anemia. There is moderate bilateral gynecomastia. There is a 4 mm left upper lobe pulmonary nodule on image 93 which is stable and below resolution limits of PET. There is adjacent mild left upper lobe bronchiectasis. There are multiple diverticula in the sigmoid colon with no acute diverticulitis. PET/PET skull to mid thigh IMPRESSION: 1. Hypermetabolic rectal mass consistent with malignancy. 2. Hypermetabolic bilateral inguinal lymph nodes which may be metastatic or reactive in nature. Consider tissue sampling. 3. Stable pulmonary opacities particularly in the right upper lobe where there is associated mild FDG uptake. This may be secondary to interstitial pulmonary edema, atypical pneumonia or lymphangitic carcinomatosis. Recommend follow-up chest CT in 3 months. 4. Mildly FDG avid enlarged right paratracheal lymph node. This is likely reactive and less likely metastatic in nature. 5. Additional CT findings as described above. Electronically authenticated by: ONIEL BORJA Date: 07/20/2024 17:57
== END 2024-07-17 15:47 | disposition home or self-care (01) ==
LOC: PETCT 15:46
PROVIDERS: Visit Provider Internal Medicine Hematology & Oncology
DX: C20 Malignant neoplasm of rectum (principal)
CPT/HCPCS: 78815; A9552

== ENCOUNTER 2024-07-18 07:34 | Outpatient (RCR) | payer MEDICARE, SELFPAY ==
[2024-07-11 10:21] LABS: Basophils Absolute Auto 0.1 10^3/uL (0.0-0.1); Basophils Percent Auto 1.2 % (0.2-2.0); Eosinophils Absolute Auto 0.1 10^3/uL (0.0-0.7); Eosinophils Percent Auto 1.9 % (0.9-7.0); Hematocrit 30.5 % (42.0-54.0); Hemoglobin 10.2 g/dL (14.0-18.0); Immature Granulocytes Abs Auto 0.01 10^3/uL (0.00-0.03); Immature Granulocytes Pct Auto 0.1 % (0.0-0.5); Lymphocytes Absolute Auto 1.9 10^3/uL (1.2-3.8); Lymphocytes Percent Auto 27.3 % (20.5-60.0); Mean Corpuscular HGB Conc 33.4 g/dL (29.9-35.2); Mean Corpuscular Hemoglobin 28.7 pg (25.9-34.0); Mean Corpuscular Volume 85.9 fL (80.0-94.0); Mean Platelet Volume 10.3 fL (9.5-13.5); Monocytes Absolute Auto 0.7 10^3/uL (0.3-0.8); Monocytes Percent Auto 10.7 % (1.7-12.0); Neutrophils Absolute Auto 4.1 10^3/uL (1.4-6.5); Neutrophils Percent Auto 58.8 % (43.0-75.0); Platelet Count 276 10^3/uL (150-450); Red Blood Count 3.55 10^6/uL (4.70-6.10); Red Cell Distribution Width 14.3 % (11.0-15.0); White Blood Count 6.9 10^3/uL (4.0-11.0)
[2024-07-11 10:37] LABS: Alanine Aminotransferase 11 U/L (16-63); Albumin Globulin Ratio 0.8; Albumin Level 3.5 g/dL (3.4-5.0); Alkaline Phosphatase 130 U/L (46-116); Anion Gap 15.6; Aspartate Amino Transferase 20 U/L (15-37); BUN Creatinine Ratio 8.1; Bilirubin Total 1.2 mg/dL (0.2-1.0); Calcium 9.1 mg/dL (8.5-10.1); Carbon Dioxide 26.3 mmol/L (21.0-32.0); Chloride 100 mmol/L (98-107); Estimated GFR (African America >60 (>=60 mL/min/1.73m^2); Estimated GFR (Non-African Ame 57 (>=60 mL/min/1.73m^2); Globulin 4.3 g/dL; Glucose 117 mg/dL (74-106); Potassium 3.9 mmol/L (3.5-5.1); Sodium 138 mmol/L (136-145); Total Protein 7.8 g/dL (6.4-8.2)
[2024-07-11 10:46] LABS: Percent Iron Saturation 6.1 %
[2024-07-12 04:07] LABS: CEA 4.4 ng/mL (0.0-4.7)
== END 2024-07-27 23:59 | disposition home or self-care (01) ==
LOC: HEMC 07:34
PROVIDERS: Visit Provider Internal Medicine Hematology & Oncology
DX: C20 Malignant neoplasm of rectum (principal); D64.9 Anemia, unspecified; F17.220 Nicotine dependence, chewing tobacco, uncomplicated
CPT/HCPCS: 36415; 71260; 74177; 80053; 82378; 82728; 83540; 83550; 85025; G0463; Q9967

== ENCOUNTER 2024-08-01 07:38 | Outpatient (RCR) | payer MEDICARE, SELFPAY ==
--- OUTSIDE RECORDS SUMMARY | 2024-08-01 07:42 | XMS_ITS | CCD ---
Author Organization [facility] Care Team Providers Care Electronic Lab Technician Name Role Phone KAMALJIT SILVA Primary Care Unavailable MISC, DOCTOR Primary Care Unavailable SAVANNAH HERNÁNDEZ Admitting Unavailable SAVANNAH HERNÁNDEZ Attending Unavailable BLAIR KOCH Consulting Unavailable GRAHAM LINN V Consulting Unavailable ROHIT BRIZUELA Consulting Unavailable SAVANNAH HERNÁNDEZ Consulting Unavailable GIBRAN WAY Consulting Unavailable hCelsy Rosales CNP Primary Care Provider [phone] DO Ning Wakefield Attending Provider [phone] NING WAKEFIELD Attending Unavailable NING WAKEFIELD Attending Unavailable Phil MINAYA, [facility] Primary Care Provide r CLEM GALLARDO Attending Unavailable NING WAKEFIELD Referring [facility] Provider MD Agnelina Tomlinson Attending Provider MD Aimee Singh Referring Provider Jesu Torres MD, [facility] Primary Care Provider KHORSAND MELISSA, JUAN A Referring Unavailabl e KHORSAND MELISSA, JUAN A Primary Care UnavailGRAHAM Reina Referring Unavailable KHORSAND MELISSA, JUAN A Primary Care Unavailarturo e CAMMIE KRUSE Referring Unavailable KHORSAND MELISSA, JUAN A Primary Care UnavailGRAHAM Reina Referring Unavailable KHORSAND MELISSA, JUAN A Primary Care UnavailNing Garcia Attending Unavailable Ning Wakefield Admitting Unavailable Angelina Tomlinson Admitting Unavailable Angelina Tomlinson Attending Unavailable [facility] Primary [facility] Unavailable Aimee Singh Referring Unavailable Allergies Allergy Classification Reported Allergen(s) Allergy Type Date of Onset Reaction(s) Facility (1 source) -No Known Enviornmental Allergies; Translations: [-No Known Enviornmental Allergies] Allergy to substance 12-07-2018 [facility] Work Phone: Medications Current Medications Medication Drug Class(es) Dates Sig (Normalized) Sig (Original) apixaban 5 mg oral tablet (5 sources) Factor Xa Inhibitor Start: 01-22-2022 take 1 tablet by mouth twice daily Apixaban (Eliquis) 5 mg tablet Active 5 MG PO Twice daily July 26, 2024 12:00am atorvastatin 20 mg oral tablet (5 sources) HMG-CoA Reductase Inhibitor Start: 03-04-2020 take 20 mg by mouth once daily at bedtime Atorvastatin Active 20 MG PO Daily at bedtime July 26, 2024 12:00am take 2 tablets by mouth once pablo ly atorvastatin (Lipitor) 20 MG tablet Take 40 mg by mouth Daily Active 24 hr dilTIAZem hydrochloride 120 mg extended release oral capsule (5 sources) Calcium Channel Elly Start: 06-29-2023 take 120 mg by mouth once daily Diltiazem Hcl Active 120 MG PO Daily July 26, 2024 12:00am docusate sodium 100 mg oral capsule (4 sources) Start: 05-15-2024 take 1 capsule by mouth in the morning docusate sodium (Colace) 100 MG capsule Take 100 mg by mouth in the morning and 100 mg before bedtime. 05/15/2024 Active fluticasone (1 source) Corticosteroid Start: 12-07-2018 [facility] Fluticasone Propionate 50MCG/ACT Nasal Suspension 12/07/2018 Provider: hydroCHLOROthiazide 12.5 mg / losartan potassium 100 mg oral tablet (4 sources) Thiazide Diuretic, Angiotensin 2 Receptor Elly take 1 tablet by mouth once in the morning losartan-hydroC HLOROthiazide (HYZAAR) 100-12.5 mg per tablet Take 1 tablet by mouth in the morning. Active take 1 tablet by ad th once daily losartan-hydroCHLOROthiazide (Hyzaar) 10 0-12.5 MG tablet Take 1 tablet by mouth Daily Active levETIRAcetam 500 mg oral tablet (1 source) Start: 12-07-2018 levETIRAcetam 500MG Oral Tablet 12/07/2018 Provider: losartan potassium 50 mg oral tablet (1 source) Angiotensin 2 Receptor Elly Start: 07-26-2024 take 50 mg by mouth once daily Losartan Active 50 MG PO Daily July 26, 2024 12:00am Magnesium (1 source) Start: 12-07-2018 Magnesium 250M G Oral Tablet 12/07/2018 Provider: Colt (No Known Home Meds) (1 source) Start: 06-29-2017 Colt (No Kn own Home Meds) Active June 29, 2017 12:00am Completed/Discontinued Medications Medication Drug Class(es) Dates Sig (Normalized) Sig (Original) acetaminophen 325 mg oral tablet (2 sources) Start: 07-08-2017 End: 07-26-2024 take 650 mg by mouth every six hours Acetaminophen Discontinued 650 MG PO Q6H 100 July 08, 2017 12:00am July 26, 2024 1:03pm amiodarone hydrochloride 200 mg oral tablet (3 sources) Antiarrhythmic Start: 07-08-2017 End: 07-26-2024 take 200 mg by mouth once daily in the morning Amiodarone Discontinued 200 MG PO Every morning 30 July 08, 2017 12:00am July 26, 2024 1:04pm ascorbic acid 500 mg oral tablet (2 sources) Vitamin C Start: 07-08-2017 End: 07-26-2024 take 1 tablet by mouth twice daily at mealtime Ascorbic Acid (Vitamin C) (Vitamin C) 500 mg Tablet Discontinued 500 MG PO Twice daily with meals 60 July 08, 2017 12:00am July 26, 2024 1:04pm aspirin 81 mg delayed release oral tablet (1 source) Platelet Aggregation Inhibitor, Nonsteroidal Anti-inflammatory Drug End: 07-25-2024 take 1 tablet by mouth in the morning aspirin 81 mg Take 1 tablet (81 mg total) by mouth in the morning. 07/25/2024 Discontinued (Therapy completed) calcium carbonate 1250 mg / cholecalciferol 200 unt oral tablet (2 sources) Vitamin D Start: 07-08-2017 End: 07-26-2024 take 1 tablet by mouth once at mealtime Calcium Carbonate-Vitamin D3 (Oyster Shell Calcium-Vit D3) 500 mg(1,250mg) -200 unit Tablet Discontinued 1 TAB PO 3x/Day with meals 90 July 08, 2017 12:00am July 26, 2024 1:06pm folic acid 1 mg oral tablet (2 sources) Start: 07-08-2017 End: 07-26-2024 take 1 mg by mouth once daily Folic Acid Discontinued 1 MG PO Daily 60 July 08, 2017 12:00am July 26, 2024 1:04pm magnesium oxide 400 mg oral tablet (3 sources) Start: 07-08-2017 End: 07-26-2024 take 400 mg by mouth twice daily Magnesium Oxide Discontinued 400 MG PO Twice daily 60 July 08, 2017 12:00July 26, 2024 1:04pm Multivitamin With Folic Acid (Thera) 400 mcg Tablet (2 sources) Start: 07-08-2017 End: 07-26-2024 take 1 tablet by mouth once daily Multivitamin With Folic Acid (Thera) 400 mcg Tablet Discontinued 1 TAB PO Daily July 08, 2017 12:00am July 26, 2024 1:04pm Start: 07-08-2017 take 1 tablet by ad th once daily Multivitamin With Folic Acid (Thera) 400 mcg Tablet Active 1 TAB PO Daily July 08, 2017 12:00am thiamine 100 mg oral tablet (2 sources) Start: 07-08-2017 End: 07-26-2024 take 1 tablet by mouth twice daily Thiamine Hcl (Vitamin B1) (Vitamin B-1) 100 mg Tablet Discontinued 100 MG PO Twice daily July 08, 2017 12:00July 26, 2024 1:04pm Problems Active Problems Problem Classification Problem Date Documented Date Episodic/Chronic Acute cerebrovascular disease (4 sources) Hemorrhage into subarachnoid space of neuraxis; Translations: [Nontraumatic subarachnoid hemorrhage, unspecified] 06-17-2017 Chronic Alcohol-related disorders (7 sources) Alcohol abuse with intoxication, unspecified; Translations: [Alcohol withdrawal delirium] Onset: 9 06-17-2017 Chronic Anxiety disorders (1 source) Generalized anxiety disorder; Translations: [Generalized anxiety disorder] Onset: 2 01-07-2022 Chronic Cancer of rectum and anus (6 sources) Adenocarcinoma of rectum; 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] Onset: 4 06-28-2024 Chronic Cardiac dysrhythmias (6 sources) Atrial fibrillation; Translations: [Unspecified atrial fibrillation] Onset: 6 06-17-2017 Chronic Cardiac dysrhythmias (2 sources) Bradycardia; Translations: [Bradycardia, unspecified] 07-01-2017 Episodic Cardiac dysrhythmias (1 source) Cardiac dysrhythmias; Translations: [CHRONIC ATRIAL FIBRILLATION UNSPEC] Onset: 0 Disorders of lipid metabolism (1 source) Hyperlipidemia, unspecified; Translations: [HYPERLIPIDEMIA UNSPECIFIED] Onset: 0 Chronic Disorders of lipid metabolism (1 source) Pure hypercholesterolemia, unspecified; Translations: [PURE HYPERCHOLESTEROLEMIA UNSPEC] Onset: 0 Essential hypertension (5 sources) Essential (primary) hypertension; Translations: [Hypertensive disorder] Onset: 6 06-18-2017 Chronic External cause codes: Fall (1 source) Unspecified fall, initial encounter; Translations: [UNSPECIFIED FALL INITIAL ENCOUNTER] Onset: 0 External cause codes: Unspecified (1 source) Blood alcohol level of 240 mg/100 ml or more; Translations: [BLOOD ALCOHOL LV 240 MG/100 ML/MORE] Onset: 0 Fracture of upper limb (9 sources) Displaced fracture of lateral end of left clavicle, initial encounter for closed fracture; Translations: [Closed fracture of the medial epicondyle of humerus] Onset: 0 06-18-2017 Episodic Heart valve disorders (1 source) Tricuspid incompetence, non-rheumatic ; Translations: [Nonrheumatic tricuspid (valve) insufficiency] Onset: 2 06-24-2022 Chronic Immunizations and screening for infectious disease (1 source) Encounter for immunization; Translations: [ENCOUNTER FOR IMMUNIZATION] Onset: 0 Episodic Mood disorders (1 source) Depressive disorder; Translations: [Depression] Onset: 2 01-07-2022 Chronic Nausea and vomiting (2 sources) Vomiting; Translations: [Vomiting, unspecified] 07-01-2017 Episodic Other aftercare (1 source) retirement (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; Translations: [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] Onset: 0 Episodic Other aftercare (1 source) Other supervisor intermediates (current) drug therapy; Translations: [OTH HALF-WAY CURRENT DRUG THERAPY] Onset: 0 Episodic Other aftercare (1 source) Encounter for therapeutic drug level monitoring; Translations: [Encounter for therapeutic drug level monitoring] Onset: 4 Episodic Other fractures (2 sources) Fracture of sixth cervical vertebra; Translations: [Unspecified displaced fracture of sixth cervical vertebra, initial encounter for closed fracture] 06-07-2017 Episodic Other fractures (2 sources) Fracture of rib; Translations: [Fracture of one rib, unspecified side, initial encounter for closed fracture] 06-07-2017 Episodic Other hereditary and degenerative nervous system conditions (1 source) Essential tremor; Translations: [Essential tremor] Onset: 2 01-07-2022 Chronic Other non-traumatic joint disorders (3 sources) Pain in left shoulder; Translations: [PAIN IN LEFT SHOULDER] Onset: 0 Episodic Other nutritional; endocrine; and metabolic disorders (1 source) Obesity, unspecified; Translations: [OBESITY UNSPECIFIED] Onset: 0 Chronic Other nutritional; endocrine; and metabolic disorders (1 source) Body mass index (BMI) 25.0-25.9, adult; Translations: [BODY MASS INDEX BMI 25.0-25.9 ADULT] Onset: 0 Episodic Other screening for suspected conditions (not mental disorders or infectious disease) (2 sources) Electrocardiogram abnormal; Translations: [Abnormal electrocardiogram [ECG] [EKG]] Onset: 6 05-13-2018 Episodic Residual codes; unclassified (2 sources) Delirium; Translations: [Disorientation, unspecified] 06-17-2017 Episodic Residual codes; unclassified (2 sources) Current drinker; Translations: [Other specified health status] 06-17-2017 Episodic Residual codes; unclassified (3 sources) Patient encounter status; Translations: [Encounter for prophylactic measures, unspecified] Onset: 4 06-30-2017 Episodic Skull and face fractures (2 sources) Zygomatic fracture, unspecified side, initial encounter for closed fracture; Translations: [Fracture of zygomatic arch] 06-07-2017 Episodic Superficial injury; contusion (1 source) Contusion of other part of head, initial encounter; Translations: [CONTUS OTH PRT HEAD INITIAL ENCNTR] Onset: 0 Episodic Unclassified (2 sources) New Patient; Translations: [New Patient] Onset: 4 Unclassified (1 source) Other persistent atrial fibrillation; Translations: [Other persistent atrial fibrillation] Onset: 2 Past or Other Problems Problem Classification Problem Date Documented Da te Episodic/Chronic Epilepsy; convulsions (2 sources) Seizure; Translations: [Unspecified convulsions] Onset: 12-01-2019 12-01-2019 Episodic Mood disorders (1 source) Mood disorders Onset: 01-07-2022 01-07-2022 Other nutritional; endocrine; and metabolic disorders (1 source) Finding of body mass index; Translations: [Body mass index [BMI]] Onset: 12-07-2018 Episodic Pneumonia (except that caused by tuberculosis or sexually transmitted disease) (1 source) Right upper zone pneumonia; Translations: [Pneumonia, unspecified organism] Onset: 04-16-2018 04-16-2018 Episodic Syncope (1 source) Syncope and collapse; Translations: [Syncope and collapse] Onset: 01-07-2022 06-24-2022 Episodic Unclassified (1 source) Onset: 01-07-2022 01-07-2022 Results Test Name Value Interpretation Reference Range Facility BASIC METABOLIC PANLon 07-25 Anion gap [Moles/Vol] 8 mmol/L Normal 5-15 [facility] Comment on above: Performed By: #### P INR, 82066-4 #### [facility] ([id number]) [address] [place] [address] #### CBC, BMP #### [facility] ([id number]) [address], [address] [place] [address] Calcium [Mass/Vol] 9.2 mg/dL Normal 8.5-10.5 [facility] Comment on above: Performed By: #### P INR, 37290-9 #### [facility] ([id number]) [address] [place] [address]1449 #### CBC, BMP #### [facility] ([id number]) [address], [address] [place] [address] Chloride [Moles/Vol] 103 mmol/L Normal 98-109 [facility] Comment on above: Performed By: #### P INR, 68639-4 #### [facility] ([id number]) [address] [place] [address]30[address] #### CBC, BMP #### [facility] ([id number]) [address], [address] [place] [address] CO2 [Moles/Vol] 26 mmol/L Normal 22-32 [facility] Comment on above: Performed By: #### P INR, 89242-5 #### [facility] ([id number]) [address] [place] [address] #### CBC, BMP #### [facility] ([id number]) [address], [address] [place] [address] Creatinine [Mass/Vol] 0.91 mg/dL Normal 0.60-1.30 [facility] Comment on above: Result Comment: METH OD TRACEABLE TO IDMS STANDARD Performed By: #### P INR, 29386-6 #### [facility] ([id number]) [address] [place] [address] #### CBC, BMP #### [facility] ([id number]) [address], [address] [place] [address] GFR/1.73 sq M.predicted among non-blacks MDRD (S/P/Bld) [Vol rate/Area] 87 mL/min/{1.73_m2} Normal >59 [facility] Comment on above: Result Comment: Reported eGFR is based on the CKD-EPI 2020 equation that does not use a race coefficient. Performed By: #### P INR, 63845-4 #### [facility] ([id number]) [address] [place] [address]87 #### CBC, BMP #### [facility] ([id number]) [address], [address] [place] [address] Glucose [Mass/Vol] 103 mg/dL High 65-99 [facility] Comment on above: Performed By: #### P INR, 91333-3 #### [facility] ([id number]) [address] [place] [address]54 #### CBC, BMP #### [facility] ([id number]) [address], [address] [place] [address] Potassium [Moles/Vol] 5.1 mmol/L High 3.5-5.0 [facility] Comment on above: Performed By: #### P INR, 93641-7 #### [facility] ([id number]) [address] [place] [address]72 #### CBC, BMP #### [facility] ([id number]) [address], [address] [place] [address] Sodium [Moles/Vol] 137 mmol/L Normal 134-146 [facility] Comment on above: Performed By: #### P INR, 07790-0 #### [facility] ([id number]) [address] [place] [address]5513 #### CBC, BMP #### [facility] ([id number]) [address], [address] [place] [address] Urea nitrogen [Mass/Vol] 10 mg/dL Normal 5-27 [facility] Comment on above: Performed By: #### P INR, 45650-9 #### [facility] ([id number]) [address] [place] [address] #### CBC, BMP #### [facility] ([id number]) [address], [address] [place] [address] COMPLETE BLOOD COUNTon 07-25 Erythrocyte distribution width (RBC) [Ratio] 16.5 % High 11.5-15.0 [facility] Comment on above: Performed By: #### P INR, 70823-8 #### [facility] ([id number]) [address] [place] [address] 88594 #### CBC, BMP #### [facility] ([id number]) [address], [address] [place] [address] Hematocrit (Bld) [Volume fraction] 30.0 % Low 39-49 [facility] Comment on above: Performed By: #### P INR, 68918-1 #### [facility] ([id number]) [address] [place] [address] #### CBC, BMP #### [facility] ([id number]) [address], [address] [place] [address] Hemoglobin (Bld) [Mass/Vol] 10.0 g/dL Low 13.0-17.0 [facility] Comment on above: Performed By: #### P INR, 32344-8 #### [facility] ([id number]) [address] [place] [address] 94[address] #### CBC, BMP #### [facility] ([id number]) [address], [address] [place] [address] MCH (RBC) [Entitic mass] 28.2 pg Normal 27-34 [facility] Comment on above: Performed By: #### P INR, 73736-1 #### [facility] ([id number]) [address] [place] [address] 99450 #### CBC, BMP #### [facility] ([id number]) [address], [address] [place] [address] MCHC (RBC) [Mass/Vol] 33.2 g/dL Normal 32-36 [facility] Comment on above: Performed By: #### P INR, 88035-7 #### [facility] ([id number]) [address] [place] [address]15 #### CBC, BMP #### [facility] ([id number]) [address], [address] [place] [address] MCV (RBC) [Entitic vol] 85 fL Normal 80-100 [facility] Comment on above: Performed By: #### P INR, 82907-5 #### [facility] ([id number]) [address] [place] [address]1537 #### CBC, BMP #### [facility] ([id number]) [address] [facility] [address] [place] [address] Platelet mean volume (Bld) [Entitic vol] 8.3 fL Normal 7-12 [facility] Comment on above: Performed By: #### P INR, 49187-0 #### [facility] ([id number]) [address] [place] [address]206 #### CBC, BMP #### [facility] ([id number]) [address] [facility], [address] [place] [address] Platelets (Bld) [#/Vol] 296 10*3/uL Normal 150-450 [facility] Comment on above: Performed By: #### P INR, 53949-3 #### [facility] ([id number]) [address] [place] [address]161 #### CBC, BMP #### [facility] ([id number]) [address], [address] [place] [address] RBC COUNT 3.53 X10E12/L Low 4.10-5.70 [facility] Comment on above: Performed By: #### P INR, 34830-0 #### [facility] ([id number]) [address] [place] [address] 04319 #### CBC, BMP #### [facility] ([id number]) [address], [address] [place] [address] WBC (Bld) [#/Vol] 6.4 10*3/uL Normal 4.0-11.0 [facility] Comment on above: Performed By: #### P INR, 06250-9 #### [facility] ([id number]) [address] [place] [address]17 #### CBC, BMP #### [facility] ([id number]) [address] [facility] [place] [address] PROTIME AND INRon 07-25-2024 INR Coag (PPP) [Relative time] 1.1 {INR} Normal 0.8-1.1 [facility] Comment on above: Performed By: #### P INR, 76217-5 #### [facility] ([id number]) [address] [place] [address] 95548 #### CBC, BMP #### [facility] ([id number]) [address] [facility] [place] [address] PT Coag (PPP) [Time] 13.1 s Normal 9.8-13.2 [facility] Comment on above: Result Comment: NEW REFERENCE RANGE Performed By: #### P INR, 18384-7 #### [facility] ([id number]) [address] [place] [address]69 #### CBC, BMP #### [facility] ([id number]) [address] [facility] [place] [address] aPTT Coag (PPP) [Time]on aPTT Coag (Bld) [Time] 35 s Normal 26-37 [facility] Comment on above: Result Comment: NEW REFERENCE RANGE Performed By: #### P INR, 02801-2 #### [facility] ([id number]) [address] [facility] [place] [address] #### CBC, BMP #### [facility] ([id number]) [address] [place] [address], [address] [place] [address] Office Visiton 06-30-2024 Follow-up visit [id number] Paul Velasquez ld 1950 M Date Provider Department Center 06/30/2024 375-CLEM GALLARDO [facility] No family history on file Level of Service:12841 SD OFFICE/OUTPATIENT NEW MODERATE MDM 45 MINUTES (GC) Reason for Visit and Comments: 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 Normal [facility] 06-20-2024 L Specimen: [id number] Received: 06/20/24 Status: CECILIA Garza Num: [id number] Spec Type: Surgical Subm Dr: Ning Wakefield DO Tissues: A Colon Biopsy (RECTAL MASS BX AT 5CM) Procedures: HE/4, Gross/Micro L4 Age/ Patient Sex Location Account Attending Physician Roldan Velasquez 73/M LABELL [id number] Ning Wakefield DO SPEC NUM: [id number] RECD: 06/20/24 STATUS: CECILIA GARZA NUM: [id number] ANITA: 06/20/[address]: Ning Wakefield DO ENTERED: 06/20/[address] [facility] [address]: Luana Brown SPEC TYPE: Surgical DEPT: [facility] ENTERED BY: [id number] RECV BY: [id number] ORDERED: HE/4, Gross/Micro L4 ORDERED: HE/4, Gross/Micro L4 Supplemental Report Addendum 2 Entered: 07/28/24 Supplemental for findings of summary of detected somatic alterations, immunotherapy biomarkers and associated treatment options from [place] [address] [facility] Detected alterations/biomarkers associated FDA approved therapies clinical trial availability KRAS T50I Cetuximab, Panitumumab Yes SERGEY [id number] Olaparib, Talazoparib Yes APC E893 None Yes FBXW7 G219fs None Yes APC N8859lz None Yes TP53 W91fs None Yes Note: -Also see entire report on file for detailed information Addendum Signed (signature on file) Kristian Sánchez MD 07/28/24 0849 Specimen: [id number] Received: 06/20/24 Status: CECILIA Garza Num: [id number] Spec Type: Surgical Subm Dr: Ning Wakefield DO Tissues: A Colon Biopsy (RECTAL MASS BX AT 5CM) Procedures: ISABELL, Gross/Lily L4 Patient: Roldan Velasquez [id number] (Continued) Specimen: [id number] Received: 06/20/24 (Continued) Supplemental Report (Continued) Signed (signature on file) Mumtaz Amor MD 06/22/24 1845 Specimen: [id number] Received: 06/20/24 Status: CECILIA Garza Num: [id number] Spec Type: Surgical Subm Dr: Ning Wakefield DO Tissues: A Colon Biopsy (RECTAL MASS BX AT 5CM) Procedures: HE/Devan, Gross/Micro L4 Patient: Roldan Velasquez [id number] (Continued) Specimen: [id number] Received: 06/20/24 (Continued) Supplemental Report (Continued) Addendum 1 Entered: 07/28/24 Supplemental for findings of PD-L1 22C3 by immunohistochemistry from [place] [address] [employer] -Combined positive score (CPS): 5 -Please also see [place] PD-L1 22C3 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 CPT Codes 88 305 Specimen: [id number] Received: 06/20/249478 Status: CECILIA Garza Num: [id number] Spec Type: Surgical Subm Dr: Ning Wakefield DO Tissues: A Colon Biopsy (RECTAL MASS BX AT 5CM) Procedures: RASHAUN/Devan, Gross/Micro L4 Patient: Roldan Velasquez [id number] (Continued) Signed (signature on file) Mumtaz Amor MD 06/22/24 1845 Normal [facility] 06-16-2021 CNOV Office Visit (NREUS2 ) ----- ROLDAN VELASQUEZ ([id number]) 1950 M Date Time Provider Department 06/16/21 4:30 PM JEAN CHRISTIAN NREUS2 During your visit today, we recorded the following information about you: Pulse Blood pressure Weight Height 113/minute 134/85 83.6 kg 1.778 m Jean Christian MD 06/24/2021 1:19 PM Signed [facility] - FOLLOW UP EVALUATION I had the pleasure of seeing Mr. Velasquez for follow up today. He is a 70 year old left-handed male with a history of tremors since 194. He is seen with a sister. Subjective [...] Dr. Nath and discussed possibility of in-patient [facility] admission for alcohol withdrawal. ? 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 he also had a chance to speak with Ms. Sage (R social problems specialist). ? Follow-up with me once he is [...] which makes him go on walks to [employer] and less going to the bar Mood: [...] PROMIS-10 Office Visit from 06/16/2021 in [facility] Office Visit from 07/22/2020 [facility] Global Physical Health T Score 57.7 44.9 Global Mental Health T Score 43.5 41.1 0-10 Standard Pain Scale 5 5 *PROMIS-10 scoring scale: mean = 50, over 50 is above average, under 50 is below average Movement Disorders Medications Schedule - as of the start of the visit: ALLERGIES No Known Allergies Current Outpatient Medications Medication Sig - Losartan-hydroCHLOROthiaz jonathan 100-12.5 mg per tablet Take 1 tablet [...] absent Extre (more content not included)... Normal [facility] CT CSPINE WO CONon 0 CT CSPINE WO CON EXAMINATION: CT CSPI NE WO CON HISTORY: Head injury. COMPARISON: CT [...] GIBRAN WAY Date: 2020-06-04 23:44 Normal [facility] CT HEAD WO CONon 06-05-2020 CT [...] GRAHAM LINN Date: 2020-06-04 22:07 Normal [facility] XR CHEST 1 Von 06-05-2020 XR CHEST 1 V EXAMINATION: XR CHES T 1 V HISTORY: Altered mental status COMPARISON: [...] GRAHAM LINN Date: 2020-06-04 22:13 Normal [facility] XR PELVIS 1_2 VIEWSon 2019 XR [...] GRAHAM LINN Date: 2020-06-04 22:16 Normal [facility] XR SHOULDER LT 2V or >on [...] GRAHAM LINN Date: 2020-06-04 22:15 Normal [facility] CARDIAC SHANE ADMITon 020 CK [Catalytic activity/Vol] 84 U/L Normal 55-170 [facility] Comment on above: Performed By: #### C HARINI WEST, CMADM #### [facility] [address] [place] [address] Marielena Keller CK.MB [Mass/Vol] 1.08 ng/mL Normal <=2.37 [facility] Comment on above: Performed By: #### C HARINI WEST, CMADM #### [facility] [address] [place], [place] [id number] Marielena Keller INR Coag (Bld) [Relative time] SEE BELOW Normal [facility] Comment on above: Result Comment: <0.0 34 ng/ml NEGATIVE 0.034-0.119 INDETERMINATE 0.120 AMI CUT OFF Performed By: #### C JENNA ETH, CMADM #### [facility] [address] [place] [address] Marielena Arianna KWABENA 58.0 ng/mL Normal <=121.0 [facility] Comment on above: Performed By: #### C JENNA ETH, CMADM #### [facility] [address] [place], [place] [id number] Marielena Arianna TROP <0.012 Normal <=0.034 [facility] Comment on above: Performed By: #### C JENNA, ETH, CMADM #### [facility] [address] [place] [address] Marielena Keller CBC AUTO DIFFon 06-04-2020 Basophils (Bld) [#/Vol] 0.1 103/ul Normal 0.0-0.1 [facility] Comment on above: Performed By: #### C BC #### [facility] [address] [place], [place] [id number] Marielena Arianna Basophils/100 WBC (Bld) 1.5 % Normal 0.2-2.0 [facility] Comment on above: Performed By: #### C BC #### [facility] [address] [place] [address] Marielena Arianna Eosinophils (Bld) [#/Vol] 0.1 103/ul Normal 0.0-0.7 [facility] Comment on above: Performed By: #### C BC #### [facility] [address] [place] [address] Marielena Arianna Eosinophils/100 WBC (Bld) 2.6 % Normal 0.9-7.0 [facility] Comment on above: Performed By: #### C BC #### [facility] [address] [place] [address] Marielena Arianna Erythrocyte distribution width (RBC) [Ratio] 13.3 % Normal 11.0-15.0 [facility] Comment on above: Performed By: #### C BC #### [facility] [address] [place] [address] Marielena Arianna Hematocrit (Bld) [Volume fraction] 39.5 % Critically low 42.0-54.0 [facility] Comment on above: Performed By: #### C BC #### [facility] [address] [place] [address] Marielena Arianna Hemoglobin (Bld) [Mass/Vol] 13.3 g/dL Critically low 14.0-18.0 [facility] Comment on above: Performed By: #### C BC #### [facility] [address] [place] [address] Marielena Arianna IG # 0.02 10e3/ul Normal 0.00-0.03 [facility] Comment on above: Performed By: #### C BC #### [facility] [address] [place] [address] Marielena Arianna IG % 0.4 % Normal 0.0-0.5 [facility] Comment on above: Performed By: #### C BC #### [facility] [address] [place] [address] Marielena Arianna Lymphocytes (Bld) [#/Vol] 1.7 103/ul Normal 1.2-3.8 [facility] Comment on above: Performed By: #### C BC #### [facility] [address] [place] [address] Marielena Arianna Lymphocytes/100 WBC (Bld) 38.0 % Normal 20.5-60.0 [facility] Comment on above: Performed By: #### C BC #### [facility] [address] [place] [address] Marielena Keller MANUAL DIFF REQ NO Normal [facility] Comment on above: Performed By: #### C BC #### [facility] [address] [place] [address] Marielenaemma Zafaren MCH (RBC) [Entitic mass] 32.1 pg Normal 25.9-34.0 [facility] Comment on above: Performed By: #### C BC #### [facility] [address] [place] [address] Marielenaemma Keller MCHC (RBC) [Mass/Vol] 33.7 g/dL Normal 29.9-35.2 [facility] Comment on above: Performed By: #### C BC #### [facility] [address] [place] [address] Marielena Arianna MCV (RBC) [Entitic vol] 95.4 fL Critically high 80.0-94.0 [facility] Comment on above: Performed By: #### C BC #### [facility] [address] [place] [address] Marielena Arianna Monocytes (Bld) [#/Vol] 0.6 103/ul Normal 0.3-0.8 [facility] Comment on above: Performed By: #### C BC #### [facility] [address] [place] [address] Marielena Arianna Monocytes/100 WBC (Bld) 13.7 % Critically high 1.7-12.0 [facility] Comment on above: Performed By: #### C BC #### [facility] [address] [place], [place] [id number] Marielena Arianna Neutrophils (Bld) [#/Vol] 2.0 103/ul Normal 1.4-6.5 [facility] Comment on above: Performed By: #### C BC #### [facility] [address] [place], [place] [id number] Marielena Arianna Neutrophils/100 WBC (Bld) 43.8 % Normal 43.0-75.0 [facility] Comment on above: Performed By: #### C BC #### [facility] [address] [place], [place] [id number] Marielena Arianna Platelet mean volume (Bld) [Entitic vol] 10.4 fL Normal 9.5-13.5 [facility] Comment on above: Performed By: #### C BC #### [facility] [address] [place], [place] [id number] Marielena Arianna Platelets (Bld) [#/Vol] 141 103/ul Critically low 150-450 [facility] Comment on above: Performed By: #### C BC #### [facility] [address] [place], [place] [id number] Marielena Arianna RBC (Bld) [#/Vol] 4.14 106/ul Critically low 4.70-6.10 [facility] [place] Comment on above: Performed By: #### C BC #### [facility] [address] [place], [place] [id number] Marielena Arianna WBC (Bld) [#/Vol] 4.5 103/ul Normal 4.0-11.0 [facility] Comment on above: Performed By: #### C BC #### [facility] [address] [place] [address] Marielena Arianna ETHANOL (BLD ALC)on 06-04-20 20 Ethanol [Mass/Vol] NOTE: 80 mg/dl is the legal limit for a blood alcohol level Normal [facility] Comment on above: Performed By: #### C MP, ETH, CMADM #### [facility] [address] [id number] Marielena Arianna Ethanol [Mass/Vol] 347 mg/dL Normal [facility] Comment on above: Performed By: #### C HARINI WEST, CMADM #### [facility] [address] [address] Marielena Arianna PROF 14(COMP METB)on 020 Albumin [Mass/Vol] 3.5 g/dL Normal 3.5-5.0 [facility] Comment on above: Performed By: #### C HARINI WEST, CMADM #### [facility] [address] [place], [place] [id number] Marielena Arianna Albumin/Globulin [Mass ratio] 0.9 {ratio} Normal [facility] Comment on above: Performed By: #### C HARINI WEST, CMADM #### [facility] [address] [place] [address] Marielena Arianna ALP [Catalytic activity/Vol] 54 U/L Normal 38-126 [facility] Comment on above: Performed By: #### C HARINI WEST, CMADM #### [facility] [address] [place] [address] Marielena Arianna ALT [Catalytic activity/Vol] 109 U/L Critically high 21-72 [facility] Comment on above: Performed By: #### C HARINI WEST, CMADM #### [facility] [address] [place], [place] [id number] Marielena Arianna Anion gap [Moles/Vol] 14.5 mmol/L Normal [facility] Comment on above: Performed By: #### C HARINI WEST, CMADM #### [facility] [address] [place], [place] [id number] Marielena Arianna AST [Catalytic activity/Vol] 128 U/L Critically high 17-59 [facility] Comment on above: Performed By: #### C HARINI WEST, CMADM #### [facility] [address] [id number] Marielena Arianna Bilirubin Ql (U) 0.3 mg/dL Normal 0.2-1.3 [facility] Comment on above: Performed By: #### C HARINI WEST, CMADM #### [facility] [address] [place] [address] Marielena Arianna Calcium [Mass/Vol] 8.5 mg/dL Normal 8.4-10.2 [facility] Comment on above: Performed By: #### C JENNA, ETH, CMADM #### [facility] [address] [place] [address] Marielena Arianna Chloride [Moles/Vol] 102 mmol/L Normal 98-107 [facility] Comment on above: Performed By: #### C JENNA, ETH, CMADM #### [facility] [address] [place] [address] Marielena Arianna CO2 [Moles/Vol] 25.2 mmol/L Normal 22.0-30.0 [facility] Comment on above: Performed By: #### C JENNA, HARINI, CMADM #### [facility] [address] [place] [address] Marielena Arianna Creatinine [Mass/Vol] 0.87 mg/dL Normal 0.66-1.25 [facility] Comment on above: Performed By: #### C JENNA, HARINI, CMADM #### [facility] [address] [place] [address] Marielena Arianna EGFR-AF CHINESE >60 Normal >=60 [facility] Comment on above: Performed By: #### C JENNA, HARINI, CMADM #### [facility] [address] [place] [address] Marielena Arianna EGFR-NON AF CHINESE >60 Normal >=60 [facility] Comment on above: Performed By: #### C JENNA, ETH, CMADM #### [facility] [address] [place] [address] Marielena Arianna Globulin (S) [Mass/Vol] 3.7 g/dL Normal [facility] Comment on above: Performed By: #### C JENNA, ETH, CMADM #### [facility] [address] [place] [address] Marielena Arianna Glucose [Mass/Vol] 107 mg/dL Critically high 74-106 [facility] Comment on above: Performed By: #### C HARINI WEST CMAKODAK #### [facility] [address] [place] [address] Marielena Arianna Potassium [Moles/Vol] 3.7 mmol/L Normal 3.4-5.0 [facility] Comment on above: Performed By: #### C HARINI WEST CMAKODAK #### [facility] [address] [place] [address] Marielena Arianna Protein [Mass/Vol] 7.2 g/dL Normal 6.1-8.2 [facility] Comment on above: Performed By: #### C HARINI WEST CMAKODAK #### [facility] [address] [place] [address] Marielena Arianna Sodium [Moles/Vol] 138 mmol/L Normal 137-145 [facility] Comment on above: Performed By: #### C HARINI WEST CMAKODAK #### [facility] [address] [place] [address] Marielena Arianna Urea nitrogen [Mass/Vol] 11.0 mg/dL Normal 9.0-20.0 [facility] Comment on above: Performed By: #### C HARINI WEST CMAKODAK #### [facility] [address] [place] [address] Marielena Arianna Urea nitrogen/Creatini ne [Mass ratio] 12.6 mg/mg Normal [facility] Comment on above: Performed By: #### C HARINI WEST CMADM #### [facility] [address] [place], [place] [id number] Marielena Arianna Vital Signs Date Time Vital Sign Value Performing Clinician Facility 07-26-2024 13:02040 Body height 170.18 cm [employer] Work Phone: [facility] 07-26-2024 13:020400 Body mass index (BMI) [Ratio] 30.2 kg/m2 [employer] Work Phone: [facility] 07-26-2024 13:020400 Body weight 87.54 kg [employer] [facility] Work Phone: [facility] 07-26-2024 13:02-0400 Diastolic blood pressure 98 mm[Hg] [employer] [facility] Work Phone: [facility] 07-26-2024 13:02-0400 Respiratory rate 16 /min [employer] [facility] Work Phone: [facility] 07-26-2024 13:02-0400 SaO2% (BldA) [Mass fraction] 98 % [employer] Work Phone: [facility] 07-26-2024 13:02-0400 Systolic blood pressure 169 mm[Hg] [employer] Work Phone: [facility] 07-25-2024 14:27-0400 Body height 177.8 cm [facility] [employer] [facility] 07-25-2024 14:27-0400 Body mass index (BMI) [Ratio] 27.98 kg/m2 Pm 2 [facility] [employer] [facility] 07-25-2024 14:27-0400 Body weight 88.45 kg Pm 2 [facility] [employer] [facility] 06-28-2024 08:14-0400 Body height 177.8 cm [employer] Work Phone: [facility] [employer] 06-28-2024 08:14-0400 Body mass index (BMI) [Ratio] 27.55 kg/m2 [employer] Work Phone: [facility] [employer] 06-28-2024 08:14-0400 Body weight 87.09 kg [employer] Work Phone: [facility] [employer] 06-28-2024 08:14-0400 Diastolic blood pressure 84 mm[Hg] [employer] Work Phone: [facility] [employer] 06-28-2024 08:14-0400 Heart rate 85 /min [employer] Work Phone: [facility] [employer] 06-28-2024 08:14-0400 Respiratory rate 18 /min Ning Wakefield DO Work Phone: [facility] 06-28-2024 08:14-0400 SaO2% (BldA) [Mass fraction] 98 % Ning Wakefield DO Work Phone: [facility] 06-28-2024 08:14-0400 Systolic blood pressure 138 mm[Hg] Ning Wakefield DO Work Phone: [facility] 12-07-2018 16:37-0400 Body height 177.8 cm Chelsy Rosales CNP Work Phone: [facility] Work Phone: 12-07-2018 16:37-0400 Body mass index (BMI) [Ratio] 25.9 kg/m2 Chelsy Rosales CNP Work Phone: [facility] Work Phone: 12-07-2018 16:37-0400 Body surface area Derived from formula 2 m2 Chelsy Rosales CNP Work Phone: [facility] Work Phone: 12-07-2018 16:37-0400 Body temperature 96.6 [degF] Chelsy Rosales CNP Work Phone: [facility] Work Phone: 12-07-2018 16:37-0400 Body weight 81.76 kg Chelsy Rosales CNP Work Phone: [facility] Work Phone: 12-07-2018 16:37-0400 Diastolic blood pressure 80 mm[Hg] Chelsy Rosales CNP Work Phone: [facility] Work Phone: 12-07-2018 16:37-0400 Heart rate 54 /min Chelsy Rosales CNP Work Phone: [facility] Work Phone: 12-07-2018 16:37-0400 SaO2% (BldA) [Mass fraction] 98 % Chelys Fountain RECEIVING SUPERVISOR Work Phone: [facility] Work Phone: 12-07-2018 16:37-0400 Systolic blood pressure 130 mm[Hg] Chelsy Rosales RECEIVING SUPERVISOR Work Phone: [facility] Work Phone: Encounters Encounter Date Encounter Type Care Provider Facility Start: 07-26-2024 Registered [facility] Work Phone: Start: 07-26-2024 End: 07-26-2024 ambulatory [facility] Work Phone: [facility] Work Phone: Start: 07-26-2024 End: 07-26-2024 Patient encounter procedure [facility] Work Phone: [facility] Work Phone: Start: 07-25-2024 Encounter for other preprocedural examination JUAN A TORRES [facility] Start: 07-25-2024 End: 07-25-2024 Patient encounter procedure [facility] Pre-Admission Testing 2 [facility] - Pre Admit Start: 07-25-2024 End: 07-25-2024 ambulatory CAMMIE KRUSE [facility] Start: 07-25-2024 End: 07-25-2024 ambulatory GRAHAM GLEZ [facility] Start: 06-30-2024 End: 06-30-2024 ambulatory CLEM GALLARDO [facility] Start: 06-28-2024 End: 06-28-2024 Bamboo flowsheet Nign Twyla DO Work Phone: [facility] Start: 06-28-2024 End: 06-28-2024 Bamboo flowsheet Ning Twyla DO Work Phone: [facility] Start: 06-28-2024 End: 06-28-2024 Postop follow up visit related to original px Ning Wakefield DO Work Phone: [facility] Comment on above: 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) Start: 06-28-2024 End: 06-28-2024 ambulatory NING WAKEFIELD Not Available Start: 06-20-2024 End: 06-20-2024 ambulatory Ning Wakefield [facility] Work Phone: Start: 06-20-2024 End: 06-20-2024 Departed Referred DO Ning Wakefield Work Phone: [facility] Start: 06-05-2024 End: 06-05-2024 ambulatory NING WAKEFIELD Not Available Start: 06-05-2020 End: 06-05-2020 Patient encounter procedure [facility] Facility: Start: 04-25-2019 End: 04-26-2019 Emergency department patient visit [facility] Start: 12-07-2018 End: 12-07-2018 FQ visit new patient Wendi Katz RECEIVING SUPERVISOR Work Phone: [facility] Work Phone: Procedures Date Procedure Procedure Detail Performing Clinician Start: 01-07-2022 Adult depression scr eening assessment [facility] 2 Start: 12-07-2018 HYPERTENSION (SYSTEMIC) Chelsy Rosales CNP Work Phone: Start: 12-07-2018 Operative procedure on ankle Chelsy Rosales CNP Work Phone: Start: 12-07-2018 Operative procedure on hand Chelsy Connie BYRNES Work Phone: Start: 12-07-2018 Surgical procedure Cynt hia Connie RECEIVING SUPERVISOR Work Phone: Plan of Treatment Date Care Activity Detail Author Start: 06-04-2030 DTaP,Tdap and Td Vaccines (4 - Td or Tdap) DTaP,Tdap and Td Vaccines (4 - Td or Tdap) [facility] [employer] [facility] Start: 07-25-2025 Adult BMI Screening Adult BMI Screen ing [facility] Start: 07-25-2025 Tobacco Screening Tobacco Screening [facility] Start: 07-28-2024 End: 07-28-2024 Admission to same day surgery center 07/28/2024 9:00 AM EDT - 07/28/2024 10:00 AM EDT Surgery [facility] [address] [place] [address] Cammie Kruse MD [address] [place] [address] INSERTION PORT A CATH-MEDI PORT FOR CHEMO [12093 (CPT )] [facility] Comment on above: INSERTION PORT A CAT H-MEDI PORT FOR CHEMO [95461 (CPT )] Start: 07-28-2024 End: 07-28-2024 Anesthesia consultation 07/28/2024 9:00 AM EDT Anesthesia Event [facility] [address] [facility] [id number] Ruperto Ponce, DO [address] [facility] [place] [address] [facility] Start: 07-28-2024 End: 07-28-2024 Insj tunneled ctr vad w/subq port age 3 yr/> INSERTION PORT A CATH Malignant neoplasm of rectum (CMS-HCC) Encounter for therapeutic drug monitoring 07/28/2024 9:00 AM EDT [facility] Start: 07-28-2024 Subsequent hospital visit by physician 07/28/2024 9:00 AM EDT Hospital Encounter [facility] [address] [facility] [phone] Cmamie Kruse MD [address] [place] [address] [facility] Start: 06-28-2024 End: 06-28-2025 Creatine Creatine Lab Routine Adenocarcinoma of rectum (HCC) (CMS/HCC) Expected: 06/28/2024 (Approximate), Expires: 06/28/2025 [facility] Comment on above: Expected: 06/28/2024 (Approximate), Expires: 06/28/2025 Start: 06-28-2024 End: 06-28-2025 CT CHEST ABDOMEN PELVIS W IV CONTRAST CT CHEST ABDOMEN PELVIS W IV CONTRAST Imaging Routine Adenocarcinoma of rectum (HCC) (CMS/HCC) Expected: 06/28/2024, Expires: 06/28/2025 [facility] Work Phone: Comment on above: Expected: 06/28/2024 , Expires: 06/28/2025 Start: 06-28-2024 End: 06-28-2025 MR Pelvis WO and W contrast IV MR pelvis w and wo contrast Imaging Routine Adenocarcinoma of rectum (HCC) (CMS/HCC) Expected: 06/28/2024, Expires: 06/28/2025 [facility] Comment on above: Expected: 06/28/2024 , Expires: 06/28/2025 Start: 06-28-2024 End: 06-28-2024 Patient encounter procedure 06/28/2024 8:15 AM EDT Office Visit [facility] [address] [place] [address] Ning Wakefield, [address] [place] [address] Arrived [facility] Comment on above: Arrived Start: 05-28-2024 COVID-19 Vaccine ( season) COVID-19 Vaccine ( season) [facility] Start: 05-28-2024 Influenza vaccination Influenza Vacc ine [facility] Start: 01-07-2023 Depression Screening Depression Scre ening [facility] Start: 2013 Fall Risk Screening Fall Risk Screen ing [facility] Start: 1967 Administration of varicella zoster vaccine Zoster (Shingles) Vaccine (1 of 2) [facility] Start: 1948 Tobacco Counseling Tobacco Counselin g [facility] Immunizations Immunization Date Immunization Notes Care Provider Noemy enriquez 06-27-2021 influenza virus vaccine, unspecified formulation [facility] 2 [facility] 04-16-2018 tetanus toxoid, redu mary jo diphtheria toxoid, and acellular pertussis vaccine, adsorbed [facility] 2 [facility] 07-08-2017 influenza, high dose seasonal, preservative-free DO Ning Wakefield Work Phone: [facility] 06-07-2017 tetanus toxoid, redu mary jo diphtheria toxoid, and acellular pertussis vaccine, adsorbed DO Ning Wakefield Work Phone: [facility] Payers Date Payer Category Payer Self-pay [id number] 2022 Medicare [employer]AGE [employer] [id number] 2022-Present [address] [place] [address] [id number] 2022 Medicare HMO [employer] [id number] 2022 Medicare [id number] 1959 Unknown [id number] 1948 Unknown [id number] 1948 Unknown [id number] 1948 Unknown [id number] 1948 Unknown [id number] 1948 Unknown [id number] 1948 Unknown [id number] 1948 Unknown [id number] 1948 Unknown [id number] Medicare 1 - Medicare [facility] 2V [id number] Medicare Medicare [id number] Unknown [facility] [id number] Unknown [id number] Unknown [id number] Social History Date Type Detail Facility Assertion Finding of alcoh ol intake (finding) [facility] Work Phone: Assertion Gender identity finding (finding) [facility] Work Phone: Assertion [facility] Work Phone: Assertion [facility] Assertion Finding of sexua l orientation (finding) [facility] Work Phone: Tobacco smoking status Unknown if ever smoked [facility] Start: 08-11-2017 End: 12-23-2022 Tobacco smoking status NHIS Never smoked tobacco (finding) [facility] Start: 1950 Sex Assigned At Male [facility] Start: 1950 Sex assigned at Not on file [facility] Start: 11-07-2020 End: 07-25-2024 Gender identity Not on file [facility] Start: 12-23-2022 Tobacco use and exposure User of smokeless tobacco [facility] History of tobacco use Chews Tobacco [facility] Start: 07-25-2024 Alcoholic beverage intake Current drinker of alcohol (finding) [facility] Start: 11-07-2020 End: 07-25-2024 Alcoholic beverage intake [facility] Start: 07-25-2024 Alcohol Comment beer daily, 2- 4 cans per day and some occassional shots of whiskey [facility] Start: 11-02-2015 Sex Male (finding) [facility] NEGATED: Highlighted row Assertion Exposure to pollution (event) [facility] Work Phone: NEGATED: Highlighted row Assertion Tobacco user (finding) [facility] Work Phone: NEGATED: Highlighted row Assertion [...] VARIABLE FDA Start: 06-25-2017 ORIF, fracture, wrist 2.4MM VA-LCP VOLAR RIM [...] SCREW 2.4MM LOCKING VARIABLE FDA Start: 06-25-2017 Lens Iol Ultrase rt 17.0d - [id number] - [id number] Start: 06-29-2023 Lens Iol Ultrase rt 18.5d - [id number] - [id number] Start: 07-13-2023 Goals Date Patient Goal Desired Activity /State Personal health goal Comment on above: Formatting of this n ote might be different from the original. Evaluation of progress towards goal: Safe transition from hospital to home. Clinical Notes 06-16-2021 to 07-25-2024 Patient InstructionsPerioperative Nursing Note - Casi Centeno RN - 07/25/2024 2:15 PM EDTPerioperative Nursing Note - Casi Centeno RN - 07/25/2024 2:15 PM EDT Note Date & Type Note Facility 07-25-2024 Instructions Casi Centeno RN - 07/25/2024 2:15 PM EDT Preoperative Education Checklist- General Surgery date: 07/28/24 Surgery time: 0900 a.m. Arrival time: 0700 a.m. 1. Bring a photo ID and your insurance card with you the day of surgery. You will check in at the main lobby of the [facility] [place]- registration desk is straight ahead as soon as you walk in. Tell them you are here for surgery. 2. If you have a Living Will/Durable Power of Roll Sheeting Cutter for Health Care that is not on file here, please bring a copy the day of surgery. 3. Please shower/bathe the night before surgery with the provided soap or wipes. Do not shower the morning of surgery- you will do use wipes when you arrive here at the hospital before getting into your surgical gown. Do not shave the area of your procedure for 2 days prior to your surgery. 4. NO powder, lotion, perfume/cologne, aftershave, make-up, deodorant, or hair products after you have bathed. 5. NO nail ugandan/acrylic on at least one finger. If you are having a hand, wrist or foot surgery then all nail ugandan and artificial/acrylic nails must be removed from that hand or foot. 6. Avoid ALL Aspirin and non-steroidal anti-inflammatory drugs and certain vitamins (Ibuprofen, Advil, Aleve, Excedrin, Meloxicam, Celebrex, fish/krill oil, etc.) for 7 days prior to surgery as instructed by your surgeon and/or your prescribing doctor. Tylenol IS ALLOWED. If you are on Ticlid, Xarelto, Eliquis, Pradaxa, Plavix or Coumadin, please check with your prescribing doctor for instructions for when to stop them. 7. If you use an inhaler, continue to use it routinely. 8. Nothing to eat or drink (not even water, gum, mints, or hard candy!) AFTER midnight prior to your surgery. 9. Take only medications that you are instructed to on the morning of surgery with a TINY SIP OF WATER. 10. Choose a responsible adult that will be able to drive you home when you are discharged from your hospital stay for your surgery and can stay with you in your home for 24 hours after your procedure. You must NOT drive any vehicle or operate any machinery for 24 hours after surgery. 11. When you dress for your appointment, please wear loose fitting clothing that is appropriate to accommodate your surgical area procedure. BRING WITH YOU ANY DEVICES YOU MAY NEED: KALLI hose, ice machine, sling/swath, brace or special shoe, oversized zip-up or button up shirt, CPAP machine if staying overnight. 12. Do NOT wear jewelry, watches, or any piercings or metal for surgery- leave these valuables and money at home. 13. Do NOT wear contact lenses for surgery- glasses are okay if needed. 14. The anesthesiologist will talk with you the day of surgery and will ask you to sign a Consent Form. 15. Refrain from smoking or any type of tobacco use for at least 8 hours and marijuana for 24 hours prior to arrival for your surgery. 16. If a GREEN BLOOD band is given to you, please bring it with you for the day of surgery. 17. Notify your surgeon if you develop any illness before your surgery. 18. If you are staying overnight, please DO NOT BRING your home medications with you. 19. If you have any questions prior to surgery, please call the Preadmission Testing office at [phone], Mon.-Fri. 7 a.m.-3 p.m. Leave a voicemail if needed. Pre-Surgery Instructions: Medication Instructions apixaban (ELIQUIS) 5 mg tablet Check with prescribing doctor for instructions atorvastatin (LIPITOR) 20 mg tablet Take morning of procedure dilTIAZem CD (CARDIZEM CD) 120 mg 24 hr capsule Take morning of procedure docusate sodium (COLACE) 100 mg capsule Stop taking 0 days prior to procedure losartan-hydroCHLOROthiazide (HYZAAR) 100-12.5 mg per tablet Stop taking 0 days prior to procedure How to Avoid an Infection after Your Surgery Your doctor will give you specific instructions, but remember: -ALWAYS wash hands before caring for your incision. -No picking, scratching, or rubbing your incision. -No creams, lotion, powder, rubbing alcohol or hydrogen peroxide on the incision (can harm the tissue and slow healing). -Your doctor will give you specific instructions for what type of dressing you will need and how often it will need changed for infection purposes. -No tight clothing on incision. -Do not allow anyone to touch your incision unless they are cleaning, checking, or redressing it (be sure they wash their hands first). -No contact of your incision with pets; avoid sleeping with pets. -Take full course of antibiotic if prescribed for you after surgery- do not stop unless directed to by your physician. You may also be given an antibiotic prior to your surgery to help prevent surgical site infections. -Eat a healthy and varied diet including proteins, fruits, and vegetables to help promote wound healing and keep blood sugars under control if you are diabetic. -Smoking slows the healing process by decreasing the amount of oxygen in your blood that is needed for tissue healing. Try to avoid or stop smoking if possible. LOOK at your incision each morning and each night to check the progress of healing. Some soreness, numbness, itching and/or mild bruising around the incision is normal. Call your doctor if you notice any of the following: -Increased redness or hardening around the incision area. -Increased pain at the incision site. -Incision feels hot to the touch. -Swelling or pulling apart of the incision edges. -Yellow or green drainage or foul odor coming from the incision. -Bleeding from the incision (apply pressure as needed). -Fever higher than 101 degrees Fahrenheit for more than 4 hours. SHOWERING: Your doctor will give you specific instructions, but remember: -Be careful getting into and out of the shower. -Showers should be quick (5 minutes or less). -Use a clean washcloth to gently wash your incision with soap and water and pat the area dry with a clean towel. -No re-using wash cloths or towels; get a fresh one to clean your incision. -Do not soak in the bathtub, go swimming or use a hot tub (Jacuzzi), or perform activities where your incision is submerged in water or exposed to any fluids or substances until instructed by your doctor. -If your have the sticky strips (steri-strips) over the incision, it is OK to shower with them. Do not remove them. Let them fall off on their own. If you have a question, call your doctor s office. Go to the follow-up appointment with your doctor. documented in this encounter [id number] 07-25-2024 Miscellaneous Notes Preoperative Education Checklist- General Surgery date: 07/28/24 Surgery time: 0900 a.m. Arrival time: 0700 a.m. 1. Bring a photo ID and your insurance card with you the day of surgery. You will check in at the main lobby of the [facility]- registration desk is straight ahead as soon as you walk in. Tell them you are here for surgery. 2. If you have a Living Will/Durable Power of Roll Sheeting Cutter for Health Care that is not on file here, please bring a copy the day of surgery. 3. Please shower/bathe the night before surgery with the provided soap or wipes. Do not shower the morning of surgery- you will do use wipes when you arrive here at the hospital before getting into your surgical gown. Do not shave the area of your procedure for 2 days prior to your surgery. 4. NO powder, lotion, perfume/cologne, aftershave, make-up, deodorant, or hair products after you have bathed. 5. NO nail ugandan/acrylic on at least one finger. If you are having a hand, wrist or foot surgery then all nail ugandan and artificial/acrylic nails must be removed from that hand or foot. 6. Avoid ALL Aspirin and non-steroidal anti-inflammatory drugs and certain vitamins (Ibuprofen, Advil, Aleve, Excedrin, Meloxicam, Celebrex, fish/krill oil, etc.) for 7 days prior to surgery as instructed by your surgeon and/or your prescribing doctor. Tylenol IS ALLOWED. If you are on Ticlid, Xarelto, Eliquis, Pradaxa, Plavix or Coumadin, please check with your prescribing doctor for instructions for when to stop them. 7. If you use an inhaler, continue to use it routinely. 8. Nothing to eat or drink (not even water, gum, mints, or hard candy!) AFTER midnight prior to your surgery. 9. Take only medications that you are instructed to on the morning of surgery with a TINY SIP OF WATER. 10. Choose a responsible adult that will be able to drive you home when you are discharged from your hospital stay for your surgery and can stay with you in your home for 24 hours after your procedure. You must NOT drive any vehicle or operate any machinery for 24 hours after surgery. 11. When you dress for your appointment, please wear loose fitting clothing that is appropriate to accommodate your surgical area procedure. BRING WITH YOU ANY DEVICES YOU MAY NEED: KALLI hose, ice machine, sling/swath, brace or special shoe, oversized zip-up or button up shirt, CPAP machine if staying overnight. 12. Do NOT wear jewelry, watches, or any piercings or metal for surgery- leave these valuables and money at home. 13. Do NOT wear contact lenses for surgery- glasses are okay if needed. 14. The anesthesiologist will talk with you the day of surgery and will ask you to sign a Consent Form. 15. Refrain from smoking or any type of tobacco use for at least 8 hours and marijuana for 24 hours prior to arrival for your surgery. 16. If a GREEN BLOOD band is given to you, please bring it with you for the day of surgery. 17. Notify your surgeon if you develop any illness before your surgery. 18. If you are staying overnight, please DO NOT BRING your home medications with you. 19. If you have any questions prior to surgery, please call the Preadmission Testing office at [phone], Mon.-Fri. 7 a.m.-3 p.m. Leave a voicemail if needed. Pre-Surgery Instructions: Medication Instructions apixaban (ELIQUIS) 5 mg tablet Check with prescribing doctor for instructions atorvastatin (LIPITOR) 20 mg tablet Take morning of procedure dilTIAZem CD (CARDIZEM CD) 120 mg 24 hr capsule Take morning of procedure docusate sodium (COLACE) 100 mg capsule Stop taking 0 days prior to procedure losartan-hydroCHLOROthiazide (HYZAAR) 100-12.5 mg per tablet Stop taking 0 days prior to procedure How to Avoid an Infection after Your Surgery Your doctor will give you specific instructions, but remember: -ALWAYS wash hands before caring for your incision. -No picking, scratching, or rubbing your incision. -No creams, lotion, powder, rubbing alcohol or hydrogen peroxide on the incision (can harm the tissue and slow healing). -Your doctor will give you specific instructions for what type of dressing you will need and how often it will need changed for infection purposes. -No tight clothing on incision. -Do not allow anyone to touch your incision unless they are cleaning, checking, or redressing it (be sure they wash their hands first). -No contact of your incision with pets; avoid sleeping with pets. -Take full course of antibiotic if prescribed for you after surgery- do not stop unless directed to by your physician. You may also be given an antibiotic prior to your surgery to help prevent surgical site infections. -Eat a healthy and varied diet including proteins, fruits, and vegetables to help promote wound healing and keep blood sugars under control if you are diabetic. -Smoking slows the healing process by decreasing the amount of oxygen in your blood that is needed for tissue healing. Try to avoid or stop smoking if possible. LOOK at your incision each morning and each night to check the progress of healing. Some soreness, numbness, itching and/or mild bruising around the incision is normal. Call your doctor if you notice any of the following: -Increased redness or hardening around the incision area. -Increased pain at the incision site. -Incision feels hot to the touch. -Swelling or pulling apart of the incision edges. -Yellow or green drainage or foul odor coming from the incision. -Bleeding from the incision (apply pressure as needed). -Fever higher than 101 degrees Fahrenheit for more than 4 hours. SHOWERING: Your doctor will give you specific instructions, but remember: -Be careful getting into and out of the shower. -Showers should be quick (5 minutes or less). -Use a clean washcloth to gently wash your incision with soap and water and pat the area dry with a clean towel. -No re-using wash cloths or towels; get a fresh one to clean your incision. -Do not soak in the bathtub, go swimming or use a hot tub (Jacuzzi), or perform activities where your incision is submerged in water or exposed to any fluids or substances until instructed by your doctor. -If your have the sticky strips (steri-strips) over the incision, it is OK to shower with them. Do not remove them. Let them fall off on their own. If you have a question, call your doctor s office. Go to the follow-up appointment with your doctor. Hibiclens and surgical instructions reviewed. Patient verbalized understanding. documented in this encounter [facility] 07-25-2024 Nurse Note Preoperative Education Checklist- General Surgery date: 07/28/24 Surgery time: 0900 a.m. Arrival time: 0700 a.m. 1. Bring a photo ID and your insurance card with you the day of surgery. You will check in at the main lobby of the [facility]- registration desk is straight ahead as soon as you walk in. Tell them you are here for surgery. 2. If you have a Living Will/Durable Power of Roll Sheeting Cutter for Health Care that is not on file here, please bring a copy the day of surgery. 3. Please shower/bathe the night before surgery with the provided soap or wipes. Do not shower the morning of surgery- you will do use wipes when you arrive here at the hospital before getting into your surgical gown. Do not shave the area of your procedure for 2 days prior to your surgery. 4. NO powder, lotion, perfume/cologne, aftershave, make-up, deodorant, or hair products after you have bathed. 5. NO nail ugandan/acrylic on at least one finger. If you are having a hand, wrist or foot surgery then all nail ugandan and artificial/acrylic nails must be removed from that hand or foot. 6. Avoid ALL Aspirin and non-steroidal anti-inflammatory drugs and certain vitamins (Ibuprofen, Advil, Aleve, Excedrin, Meloxicam, Celebrex, fish/krill oil, etc.) for 7 days prior to surgery as instructed by your surgeon and/or your prescribing doctor. Tylenol IS ALLOWED. If you are on Ticlid, Xarelto, Eliquis, Pradaxa, Plavix or Coumadin, please check with your prescribing doctor for instructions for when to stop them. 7. If you use an inhaler, continue to use it routinely. 8. Nothing to eat or drink (not even water, gum, mints, or hard candy!) AFTER midnight prior to your surgery. 9. Take only medications that you are instructed to on the morning of surgery with a TINY SIP OF WATER. 10. Choose a responsible adult that will be able to drive you home when you are discharged from your hospital stay for your surgery and can stay with you in your home for 24 hours after your procedure. You must NOT drive any vehicle or operate any machinery for 24 hours after surgery. 11. When you dress for your appointment, please wear loose fitting clothing that is appropriate to accommodate your surgical area procedure. BRING WITH YOU ANY DEVICES YOU MAY NEED: KALLI hose, ice machine, sling/swath, brace or special shoe, oversized zip-up or button up shirt, CPAP machine if staying overnight. 12. Do NOT wear jewelry, watches, or any piercings or metal for surgery- leave these valuables and money at home. 13. Do NOT wear contact lenses for surgery- glasses are okay if needed. 14. The anesthesiologist will talk with you the day of surgery and will ask you to sign a Consent Form. 15. Refrain from smoking or any type of tobacco use for at least 8 hours and marijuana for 24 hours prior to arrival for your surgery. 16. If a GREEN BLOOD band is given to you, please bring it with you for the day of surgery. 17. Notify your surgeon if you develop any illness before your surgery. 18. If you are staying overnight, please DO NOT BRING your home medications with you. 19. If you have any questions prior to surgery, please call the Preadmission Testing office at [phone], Mon.-Fri. 7 a.m.-3 p.m. Leave a voicemail if needed. Pre-Surgery Instructions: Medication Instructions apixaban (ELIQUIS) 5 mg tablet Check with prescribing doctor for instructions atorvastatin (LIPITOR) 20 mg tablet Take morning of procedure dilTIAZem CD (CARDIZEM CD) 120 mg 24 hr capsule Take morning of procedure docusate sodium (COLACE) 100 mg capsule Stop taking 0 days prior to procedure losartan-hydroCHLOROthiazide (HYZAAR) 100-12.5 mg per tablet Stop taking 0 days prior to procedure How to Avoid an Infection after Your Surgery Your doctor will give you specific instructions, but remember: -ALWAYS wash hands before caring for your incision. -No picking, scratching, or rubbing your incision. -No creams, lotion, powder, rubbing alcohol or hydrogen peroxide on the incision (can harm the tissue and slow healing). -Your doctor will give you specific instructions for what type of dressing you will need and how often it will need changed for infection purposes. -No tight clothing on incision. -Do not allow anyone to touch your incision unless they are cleaning, checking, or redressing it (be sure they wash their hands first). -No contact of your incision with pets; avoid sleeping with pets. -Take full course of antibiotic if prescribed for you after surgery- do not stop unless directed to by your physician. You may also be given an antibiotic prior to your surgery to help prevent surgical site infections. -Eat a healthy and varied diet including proteins, fruits, and vegetables to help promote wound healing and keep blood sugars under control if you are diabetic. -Smoking slows the healing process by decreasing the amount of oxygen in your blood that is needed for tissue healing. Try to avoid or stop smoking if possible. LOOK at your incision each morning and each night to check the progress of healing. Some soreness, numbness, itching and/or mild bruising around the incision is normal. Call your doctor if you notice any of the following: -Increased redness or hardening around the incision area. -Increased pain at the incision site. -Incision feels hot to the touch. -Swelling or pulling apart of the incision edges. -Yellow or green drainage or foul odor coming from the incision. -Bleeding from the incision (apply pressure as needed). -Fever higher than 101 degrees Fahrenheit for more than 4 hours. SHOWERING: Your doctor will give you specific instructions, but remember: -Be careful getting into and out of the shower. -Showers should be quick (5 minutes or less). -Use a clean washcloth to gently wash your incision with soap and water and pat the area dry with a clean towel. -No re-using wash cloths or towels; get a fresh one to clean your incision. -Do not soak in the bathtub, go swimming or use a hot tub ([employer]ongei), or perform activities where your incision is submerged in water or exposed to any fluids or substances until instructed by your doctor. -If your have the sticky strips (steri-strips) over the incision, it is OK to shower with them. Do not remove them. Let them fall off on their own. If you have a question, call your doctor s office. Go to the follow-up appointment with your doctor. [facility] 07-25-2024 Nurse Note Hibiclens and surgical instructions reviewed. Patient verbalized understanding. [facility] 06-30-2024 Note Attestation signed by Clem Gallardo MD at 07/03/2024 9:36 AM I personally saw and examined the patient on the same date of service as resident/fellow . I discussed the findings and therapeutic plan with the resident/fellow . I agree with the documentation. [facility] Gastroenterology New Patient Visit - History & Physical CHIEF COMPLAINT Chief Complaint Patient presents with New Patient adenocarcinoma of rectum HISTORY OF PRESENT ILLNESS: Roldan Velasquez is a 73 y.o. male has hx of a-fib for that patient is on eliquis, essential hypertension who recently had ER visit for hematochezia. Patient followed up with the GI at [facility] where he underwent colonoscopy which revealed rectal [...] PROT B12/Folate/Iron studies: No results found for: [id number] , FOLATE , IRON , TIBC , UIBC , IRONSAT , FERRITIN Viral Hepatitis No results found for: HEPAIGM , HAV , HEPBSAG , HEPBSAB , HEPBEAB , HEPBIGM , HEPBCAB , HEPBCOREAB , HBVNAT , HCVSCR , HEPCAB , HCVNAT , HCVPCR , HCVTMA Liver Workup No results found for: JENNIFER , SMOOTHMUSCAB , CERULOPLSM , [id number] , TTGA , IGA , TSH , FREET4 , AFP Pancreatitis No results found for: AMYLASE , LIPASE , TRIG , CALCIUM ASSESSMENT AND PLAN: Roldan Velasquez is a 73 y.o. male has hx of a-fib for that patient is on eliquis, essential hypertension who recently had ER visit for hematochezia. Patient followed up with the GI at [facility] where he underwent colonoscopy which revealed rectal [...] complaints at t (more content not included)... [facility] 06-28-2024 History of Presen t illness Narrative Images from the original note [...] Tobacco Use: High Risk (07/13/2023) Received from [facility] Patient History Smoking Tobacco Use: Never Smokeless Tobacco Use: Current Passive Exposure: Not on file Alcohol Use: Not on file Depression: Not at risk (01/07/2022) Received from [facility] PHQ-2 Total Score: 2 Physical Activity: Not on file REVIEW OF SYMPTOMS: Review of Systems All other systems reviewed and are negative. 10 systems were reviewed. Positives noted above. Remainder are negative per CMS guidelines OBJECTIVE: Visit Vitals BP 138/84 Pulse [...] Information Document Information Other: Other PATHOLOGY REPORT [facility] 06/20/2024 00:00 Attached To: Roldan Velasquez Source [...] Essence Wakefield DO documented in this encounter [facility] 06-16-2021 Note HNO ID: [id number] Author: Jean Christian MD Service: ? Author [...] Dr. Nath and discussed possibility of [facility]patient [facility] for [facility] withdrawal. ? 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 he also had a chance to speak with Ms. Sage (R social problems specialist). ? Follow-up with me once he is [...] which makes him go on walks to [employer] and less going to the bar Mood: [...] PROMIS-10 Office Visit from 06/16/2021 [facility]22/2020 [facility] T Score 57.7 44.9 [...] General Neurological Examination: (more content not included)... [facility] Evaluation note Assessments not supported for this document typeNo Assessments [facility] Work Phone: Evaluation note No assessment inform ation available [facility] Work Phone: Evaluation note Diagnosis Adenocarcinoma of rectum (HCC) (CMS/HCC)- Primary documented [facility] this encounter [facility] Diagnosis Onset Date Resolution Status Adenocarcinoma of rectum acu te [facility] Work Phone: History of Present illness Narrative History of Present Illness not supported for this document type No History of Present Illness [facility] Work Phone: Instructions Instructions not supported for this document type No Instructions [facility] Work Phone: patient problem outcome Narrative Includes: Evaluations & Outcomes for active Goals No Outcomes [facility] Work Phone: reason for referral (narrative)* Consultation (Routine) - Pending Review Specialty Diagnoses / Procedures Referred By Enedina t Referred To Contact Oncology Diagnoses Adenocarcinoma of rectum (HCC) (CMS/HCC) Procedures SD OFFICE/OUTPATIENT [facility] MDM 60 MINUTES Ning WakefieldDO [address] [facility] [address] [place] [address] Aimee Singh MD [address] [place] [address] Referral ID Status Reason Start Date Expiration Date Visits Requested Visits Authorized [id number] Pending Review Specialty Services Required 06/28/2024 12/25/2024 1 1 * Imaging (Routine) - Pending Review Specialty Diagnoses / Procedures Referred By Contac t Referred To Contact Radiology Diagnoses Adenocarcinoma of rectum (HCC) (CMS/HCC) Procedures MR pelvis w and wo contrast Twyla Ning [address] [facility] [address] [place] [address] [facility] [address] [place] [address] Referral ID Status Reason Start Date Expiration Date V isits Requested Visits Authorized [id number] Pending Review 06/28/2024 12/25/2024 1 1 * Imaging (Routine) - Pending Review Specialty Diagnoses / Procedures Referred By Contac t Referred To Contact Radiology Diagnoses Adenocarcinoma of rectum (HCC) (CMS/HCC) Procedures CT CHEST ABDOMEN PELVIS W IV CONTRAST Ning Wakefield DO [address] [facility] [facility] [facility] [address] [place] [address] [place] [address] Referral ID Status Reason Start Date Expiration Date V isits Requested Visits Authorized [id number] Pending Review 06/28/2024 12/25/2024 1 1 [facility] Narrative - Reported Review of Systems not supported for this document type No Review of Systems [facility] Work Phone: Summary Purpose Family History No Family History Records Found Description Last Updated Maternal history of type 2 diabetes ria itus 12/07/2018 Relationship Condition Age at Onset Recorded Date/T sunshine father Unknown mother Unknown Advance Directives No Advanced Directives Records Found Advance Directive Response Recorded Date/ Time Advance Directives No May 11:06am Date Activated Date Inactivated Comments 12/01/2019 3:13 PM 12/02/2019 4:45 PM Date Activated Date Inactivated Comments 12/01/2019 1:18 PM 12/01/2019 3:13 PM Date Activated Date Inactivated Comments 04/16/2018 8:43 PM 04/19/2018 4:43 PM Physical Exam Physical Exam not supported for [...] DATE CREATED AUTHOR AUTHOR'S ORGANIZ ATION 11/05/2021 [facility] DATE CREATED AUTHOR AUTHOR'S ORGANIZ ATION 06/29/2024 [facility] DATE CREATED AUTHOR AUTHOR'S ORGANIZ ATION 07/04/2024 [facility] DATE CREATED AUTHOR AUTHOR'S ORGANIZ ATION 07/27/2024 [facility] DATE CREATED AUTHOR AUTHOR'S ORGANIZ ATION 07/30/2024 [facility] Care Teams (unrecognized sec tion and content) Team Status: Inactive Member Role Status Dates Ning Wakefield DO Attending Provider Active Star t: June 20, 2024 End: June 20, 2024 Electronic Lab Technician Relationship Specialty Start Date End Date Shabnam Villarreal MD [address] [place] [address] PCP - General Behavioral Health 06/05/24 Electronic Lab Technician Relationship Specialty Start Date End Date Shabnam Villarreal MD [address] [place] [address] PCP - General Behavioral Health 06/05/24 Team Status: Active Member Role Status Dates [facility] Primary Care Provider Active Team Status: Inactive Member Role Status Dates Angelina Tomlinson MD Attending Provider Active Start: July 26, 2024 End: July 26, 2024 [facility] Primary Care Provider Active Start: July 26, 2024 End: July 26, 2024 Aimee Singh MD Referring Provider Active St art: July 26, 2024 End: July 26, 2024 Team Status: Active Member Role Status Dates [facility] Primary Care Provider Active Start: July 26, 2024 Angelina Tomlinson MD Attending Provider Active Start: July 26, 2024 Aimee Singh MD Referring Provider Active St art: July 26, 2024 Electronic Lab Technician Relationship Specialty Start Date End Date Juan A Byrd MD [address] [place] [address] PCP - General Internal Medicine 01/01/22 Goals (unrecognized section and content) Goals may [...] BE BASED ON THE PRIMARY CLINICAL RECORDS. [employer] provides no warranty or guarantee of the accuracy or completeness of information in this document.
== END 2024-08-26 23:59 | disposition home or self-care (01) ==
LOC: HEMC 07:38
PROVIDERS: Visit Provider Internal Medicine Hematology & Oncology
DX: C20 Malignant neoplasm of rectum (principal); D64.9 Anemia, unspecified; R11.2 Nausea with vomiting, unspecified
CPT/HCPCS: G0463

== ENCOUNTER 2024-08-18 12:20 | Outpatient (OUT) | payer MEDICARE, SELFPAY ==
--- OUTSIDE RECORDS SUMMARY | 2024-08-18 12:29 | XMS_ITS | CCD ---
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 [facility] ([id number]) [address] [place] [address] Hematocrit (Bld) [Volume fraction] 30.0 % Low 39-49 [facility] Comment on above: Performed By: #### P INR, 41203-7 #### [facility] ([id number]) [address] [place] [address] #### CBC, BMP #### [facility] ([id number]) [address], [address] [place] [address] Hemoglobin (Bld) [Mass/Vol] 10.0 g/dL Low 13.0-17.0 [facility] Comment on above: Performed By: #### P INR, 82125-2 #### [facility] ([id number]) [address] [place] [address] 25390 #### CBC, BMP #### [facility] ([id number]) [address], [address] [place] [address] MCH (RBC) [Entitic mass] 28.2 pg Normal 27-34 [facility] Comment on above: Performed By: #### P INR, 83235-9 #### [facility] ([id number]) [address] [place] [address] 36437 #### CBC, BMP #### [facility] ([id number]) [address] [place] [address] MCHC (RBC) [Mass/Vol] 33.2 g/dL Normal 32-36 [facility] Comment on above: Performed By: #### P INR, 12981-7 #### [facility] ([id number]) [address] [place] [address] 976[address] #### CBC, BMP #### [facility] ([id number]) [address] [place] [address] MCV (RBC) [Entitic vol] 85 fL Normal 80-100 [facility] Comment on above: Performed By: #### P INR, 39543-7 #### [facility] ([id number]) [address] [place] [address] 22967 #### CBC, BMP #### [facility] ([id number]) [address], [address] [place] [address] Platelet mean volume (Bld) [Entitic vol] 8.3 fL Normal 7-12 [facility] Comment on above: Performed By: #### P INR, 09761-4 #### [facility] ([id number]) [address] [place] [address] 99420 #### CBC, BMP #### [facility] ([id number]) [address] [place] [address] Platelets (Bld) [#/Vol] 296 10*3/uL Normal 150-450 [facility] Comment on above: Performed By: #### P INR, 41634-2 #### [facility] ([id number]) [address] [place] [address] 69942 #### CBC, BMP #### [facility] ([id number]) [address] [place] [address] RBC COUNT 3.53 X10E12/L Low 4.10-5.70 [facility] Comment on above: Performed By: #### P INR, 94433-6 #### [facility] ([id number]) [address] [place] [address] 19291 #### CBC, BMP #### [facility] ([id number]) [address] [facility] [place] [address] WBC (Bld) [#/Vol] 6.4 10*3/uL Normal 4.0-11.0 [facility] Comment on above: Performed By: #### P INR, 79219-0 #### [facility] ([id number]) [address] [place] [address] 37710 #### CBC, BMP #### [facility] ([id number]) [address] [place] [address] PROTIME AND INRon 07-25-2024 INR Coag (PPP) [Relative time] 1.1 {INR} Normal 0.8-1.1 [facility] Comment on above: Performed By: #### P INR, 83953-4 #### [facility] ([id number]) [address] [place] [address] 09888 #### CBC, BMP #### [facility] ([id number]) [address] [place] [address] PT Coag (PPP) [Time] 13.1 s Normal 9.8-13.2 [facility] Comment on above: Result Comment: NEW REFERENCE RANGE Performed By: #### P INR, 56795-1 #### [facility] ([id number]) [address] [place] [address] #### CBC, BMP #### [facility] ([id number]) [address] [place] [address] aPTT Coag (PPP) [Time]on aPTT Coag (Bld) [Time] 35 s Normal 26-37 [facility] Comment on above: Result Comment: NEW REFERENCE RANGE Performed By: #### P INR, 29563-4 #### [facility] ([id number]) [address] [place] [address] 12107 #### CBC, BMP #### [facility] ([id number]) [address] [place] [address] Office Visiton 06-30-2024 Follow-up visit [id number] Paul Velasquez ld 1950 M Date Provider Department Center 06/30/2024 [address] [facility] GI [facility] No family history on file Level of Service:09905 [place] OFFICE/OUTPATIENT NEW MODERATE MDM 45 MINUTES (GC) Reason for Visit and Comments: 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 Normal [facility] Luther 06-20-2024 L Specimen: [id number] Received: 06/20/24 Status: SOUMaximino Reabdi Num: [id number] Spec Type: Surgical Subm Dr: Ning Wakefield DO Tissues: A Colon Biopsy (RECTAL MASS BX AT 5CM) Procedures: HE/4, Gross/Micro L4 Age/ Patient Sex Location Account Attending Physician Alexei Velasquez 73/M LABELL [id number] Ning Wakefield DO SPEC NUM: [id number] RECD: 06/20/24 STATUS: CECILIA GARZA NUM: [id number] ANITA: 06/20/[address] [facility] [address]: Ning Wakefield DO ENTERED: 06/20/[address] [facility] [address]: Luana Brwon SPEC TYPE: Surgical DEPT: [facility] ENTERED BY: [id number] RECV BY: [id number] ORDERED: HE/4, Gross/Micro L4 ORDERED: HE/4, Gross/Micro L4 Supplemental Report Addendum 3 Entered: 08/02/24 Supplemental for findings of consultation report from [facility] -At least intramucosal adenocarcinoma -See comment Addendum Signed (signature on file) Kristian Sánchez MD 08/02/241806 Addendum 2 Entered: 07/28/24 Supplemental for findings of summary of detected somatic alterations, immunotherapy biomarkers and associated treatment options from [address] Detected alterations/biomarkers associated FDA approved therapies clinical trial availability KRAS T50I Cetuximab, Panitumumab Yes SERGEY [id number] Olaparib, Talazoparib Yes APC E893 None Yes FBXW7 G219fs None Yes Specimen: [id number] Received: 06/20/24 Status: CECILIA Req Num: [id number] Spec Type: Surgical Subm Dr: Ning Wakefield DO Tissues: A Colon Biopsy (RECTAL MASS BX AT 5CM) Procedures: HE/4, Gross/Lily L4 Patient: Alexei Velasquez [id number] (Continued) Specimen: [id number] Received: 06/20/24 (Continued) Supplemental Report (Continued) Signed (signature on file) Mumtaz Amor MD 06/22/24 1845 Specimen: [id number] Received: 06/20/24 Status: CECILIA Garza Num: [id number] Spec Type: Surgical Subm Dr: Ning Wakefield DO Tissues: A Colon Biopsy (RECTAL MASS BX AT 5CM) Procedures: RASHAUNAlverto Hartman/Micro L4 Patient: Alexei Velasquez [id number] (Continued) Specimen: [id number] Received: 06/20/24 (Continued) Supplemental Report (Continued) APC N0148um None Yes TP53 W91fs None Yes Note: -Also see entire report on file for detailed information Addendum Signed (signature on file) Kristian Sánchez MD 07/28/24 0849 Addendum 1 Entered: 07/28/24 Supplemental for findings of PD-L1 22C3 by immunohistochemistry from [place] [address] [employer] -Combined positive score (CPS): 5 -Please also see [place] PD-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 Specimen: [id number] Received: 06/20/24 Status: CECILIA Garza Num: [id number] Spec Type: Surgical Subm Dr: Ning Wakefield, Tissues: A Colon Biopsy (RECTAL MASS BX AT 5CM) Procedures: ISABELL, Gross/Micro L4 Patient: Alexei Velasquez [id number] (Continued) Specimen: [id number] Received: 06/20/24 (Continued) Signed (signature on file) Mumtaz Amor MD 06/22/24 1845 Specimen: [id number] Received: 06/20/24-5185 Status: CECILIA Garza Num: [id number] Spec Type: Surgical Subm Dr: Ning Wakefield, Tissues: A Colon Biopsy (more content not included)... Normal [facility] Physician [facility] CT CSPINE WO CONon 0 CT [...] by: GIBRAN WAY Date: 2020-06-04 23:44 Normal [facility] CT HEAD WO CONon 06-05-2020 CT [...] GRAHAM LINN Date: 2020-06-04 22:07 Normal [facility] XR CHEST 1 Von 06-05-2020 XR CHEST [...] GRAHAM LINN Date: 2020-06-04 22:13 Normal [facility] XR PELVIS 1_2 VIEWSon 2019 XR PELVIS 1_2 VIEWS EXAMINATION: XR PELVIS 1_2 VIEWS HISTORY: Altered mental status COMPARISON: No relevant comparison available. FINDINGS: BOWEL GAS PATTERN: No abnormal dilation or deviation. CALCIFICATIONS: None significant. OTHER: No acute fracture. Mild bilateral hip osteoarthropathy. Mild spondylosis of the spine IMPRESSION: No definite acute fracture Electronically authenticated by: GRAHAM LINN Date: 2020-06-04 22:16 Normal [facility] XR SHOULDER LT 2V or >on XR [...] GRAHAM LINN Date: 2020-06-04 22:15 Normal [facility] CARDIAC SHANE ADMITon 020 CK [Catalytic activity/Vol] 84 U/L Normal 55-170 [facility] Comment on above: Performed By: #### C MP, ETH, CMADM #### [facility] [address] [place], [place] [address] Marielena Keller CK.MB [Mass/Vol] 1.08 ng/mL Normal <=2.37 [facility] Comment on above: Performed By: #### C HARINI WEST, CMAKODAK #### [facility] [address] [place], [place] [address] Marielena Arianna INR Coag (Bld) [Relative time] SEE BELOW Normal [facility] Comment on above: Result Comment: <0.0 34 ng/ml NEGATIVE 0.034-0.119 INDETERMINATE 0.120 AMI CUT OFF Performed By: #### C HARINI WEST, CMAKODAK #### [facility] [address] [place] [address] Marielena Arianna KWABENA 58.0 ng/mL Normal <=121.0 [facility] Comment on above: Performed By: #### C HARINI WEST CMADM #### [facility] [address] [place] [address] Marielena Arianna TROP <0.012 Normal <=0.034 [facility] Comment on above: Performed By: #### C HARINI WEST CMADM #### [facility] [address] [place] [address] Marielena Arianna CBC AUTO DIFFon 06-04-2020 Basophils (Bld) [#/Vol] 0.1 103/ul Normal 0.0-0.1 [facility] Comment on above: Performed By: #### C BC #### [facility] [address] [place], [place] [address] Marielena Arianna Basophils/100 WBC (Bld) 1.5 % Normal 0.2-2.0 [facility] Comment on above: Performed By: #### C BC #### [facility] [address] [place], [place] [address] Marielena Arianna Eosinophils (Bld) [#/Vol] 0.1 103/ul Normal 0.0-0.7 [facility] Comment on above: Performed By: #### C BC #### [facility] [address] [place], [place] [address] Marielena Arianna Eosinophils/100 WBC (Bld) 2.6 % Normal 0.9-7.0 [facility] Comment on above: Performed By: #### C BC #### [facility] [address] [place], [place] [address] Marielena Arianna Erythrocyte distribution width (RBC) [Ratio] 13.3 % Normal 11.0-15.0 [facility] Comment on above: Performed By: #### C BC #### [facility] [address] [place], [place] [address] Marielena Arianna Hematocrit (Bld) [Volume fraction] 39.5 % Critically low 42.0-54.0 [facility] Comment on above: Performed By: #### C BC #### [facility] [address] [place], [place] [address] Marielena Arianna Hemoglobin (Bld) [Mass/Vol] 13.3 g/dL Critically low 14.0-18.0 [facility] Comment on above: Performed By: #### C BC #### [facility] [address] [place] [address] Marielena Arianna IG # 0.02 10e3/ul Normal 0.00-0.03 [facility] Comment on above: Performed By: #### C BC #### [facility] [address] [place] [address] Marielena Arianna IG % 0.4 % Normal 0.0-0.5 [facility] Comment on above: Performed By: #### C BC #### [facility] [address] [place], [place] [address] Marielena Arianna Lymphocytes (Bld) [#/Vol] 1.7 103/ul Normal 1.2-3.8 [facility] Comment on above: Performed By: #### C BC #### [facility] [address] [place], [place] [address] Marielena Arianna Lymphocytes/100 WBC (Bld) 38.0 % Normal 20.5-60.0 [facility] Comment on above: Performed By: #### C BC #### [facility] [address] [place], [place] [address] Marielena Arianna MANUAL DIFF REQ NO Normal [facility] Comment on above: Performed By: #### C BC #### [facility] [address] [place], [place] [address] Marielena Arianna MCH (RBC) [Entitic mass] 32.1 pg Normal 25.9-34.0 [facility] Comment on above: Performed By: #### C BC #### [facility] [address] [place], [place] [address] Marielena Keller MCHC (RBC) [Mass/Vol] 33.7 g/dL Normal 29.9-35.2 [facility] Comment on above: Performed By: #### C BC #### [facility] [address] [place], [place] [address] Marielena Keller MCV (RBC) [Entitic vol] 95.4 fL Critically high 80.0-94.0 [facility] Comment on above: Performed By: #### C BC #### [facility] [address] [place], [place] [address] Marielena Arianna Monocytes (Bld) [#/Vol] 0.6 103/ul Normal 0.3-0.8 [facility] Comment on above: Performed By: #### C BC #### [facility] [address] [place] [address] Marielena Keller Monocytes/100 WBC (Bld) 13.7 % Critically high 1.7-12.0 [facility] Comment on above: Performed By: #### C BC #### [facility] [address] [place], [place] [address] Marielena Keller Neutrophils (Bld) [#/Vol] 2.0 103/ul Normal 1.4-6.5 [facility] Comment on above: Performed By: #### C BC #### [facility] [address] [place], [place] [address] Marielena Keller Neutrophils/100 WBC (Bld) 43.8 % Normal 43.0-75.0 [facility] Comment on above: Performed By: #### C BC #### [facility] [address] [place], [place] [address] Marielenaemma Keller Platelet mean volume (Bld) [Entitic vol] 10.4 fL Normal 9.5-13.5 [facility] Comment on above: Performed By: #### C BC #### [facility] [address] [place] [address] Marielenaemma Zafaren Platelets (Bld) [#/Vol] 141 103/ul Critically low 150-450 [facility] Comment on above: Performed By: #### C BC #### [facility] [address] [place], [place] [address] Marielenaemma Zafaren RBC (Bld) [#/Vol] 4.14 106/ul Critically low 4.70-6.10 [facility] Comment on above: Performed By: #### C BC #### [facility] [address] [place], [place] [address] Marielena Arianna WBC (Bld) [#/Vol] 4.5 103/ul Normal 4.0-11.0 [facility] Comment on above: Performed By: #### C BC #### [facility] [address] [place], [place] [address] Marielena Arianna ETHANOL (BLD ALC)on 06-04-20 20 Ethanol [Mass/Vol] NOTE: 80 mg/dl is the legal limit for a blood alcohol level Normal [facility] Comment on above: Performed By: #### C HARINI WEST, CMADM #### [facility] [address] [place] [address] Marielena Arianna Ethanol [Mass/Vol] 347 mg/dL Normal [facility] Comment on above: Performed By: #### C HARINI WEST, CMADM #### [facility] [address] [place], [place] [address] Marielenaemma Zafaren PROF 14(COMP METB)on 020 Albumin [Mass/Vol] 3.5 g/dL Normal 3.5-5.0 [facility] Comment on above: Performed By: #### C HARINI WEST, CMADM #### [facility] [address] [place], [place] [address] Marielena Arianna Albumin/Globulin [Mass ratio] 0.9 {ratio} Normal [facility] Comment on above: Performed By: #### C JENNA ETH, CMADM #### [facility] [address] [place], [place] [address] Marielena Arianna ALP [Catalytic activity/Vol] 54 U/L Normal 38-126 [facility] Comment on above: Performed By: #### C HARINI WEST CMADM #### [facility] [address] [place] [address] Marielena Arianna ALT [Catalytic activity/Vol] 109 U/L Critically high 21-72 [facility] Comment on above: Performed By: #### C HARINI WEST CMADM #### [facility] [address] [place] [address] Marielena Arianna Anion gap [Moles/Vol] 14.5 mmol/L Normal [facility] Comment on above: Performed By: #### C HARINI WEST CMADM #### [facility] [address] [place] [address] Marielena Arianna AST [Catalytic activity/Vol] 128 U/L Critically high 17-59 [facility] Comment on above: Performed By: #### C HARINI WEST CMADM #### [facility] [address] [place] [address] Marielena Arianna Bilirubin Ql (U) 0.3 mg/dL Normal 0.2-1.3 [facility] Comment on above: Performed By: #### C HARINI WEST CMADM #### [facility] [address] [place] [address] Marielena Arianna Calcium [Mass/Vol] 8.5 mg/dL Normal 8.4-10.2 [facility] Comment on above: Performed By: #### C HARINI WEST CMADM #### [facility] [address] [place] [address] Marielena Arianna Chloride [Moles/Vol] 102 mmol/L Normal 98-107 [facility] Comment on above: Performed By: #### C HARINI WEST CMADM #### [facility] [address] [place] [address] Marielena Arianna CO2 [Moles/Vol] 25.2 mmol/L Normal 22.0-30.0 [facility] Comment on above: Performed By: #### C HARINI WEST CMADM #### [facility] [address] [place] [address] Marielena Arianna Creatinine [Mass/Vol] 0.87 mg/dL Normal 0.66-1.25 [facility] Comment on above: Performed By: #### C HARINI WEST CMADM #### [facility] [address] [place] [address] Marielena Arianna EGFR-AF MONTSERRATIAN >60 Normal >=60 [facility] Comment on above: Performed By: #### C HARINI WEST CMADM #### [facility] [address] [place] [address] Marielena Arianna EGFR-NON AF MONTSERRATIAN >60 Normal >=60 [facility] Comment on above: Performed By: #### C HARINI WEST CMADM #### [facility] [address] [place] [address] Marielena Arianna Globulin (S) [Mass/Vol] 3.7 g/dL Normal [facility] Comment on above: Performed By: #### C HARINI WEST CMADM #### [facility] [address] [place] [address] Marielena Arianna Glucose [Mass/Vol] 107 mg/dL Critically high 74-106 [facility] Comment on above: Performed By: #### C HARINI WEST CMADM #### [facility] [address] [place] [address] Marielena Arianna Potassium [Moles/Vol] 3.7 mmol/L Normal 3.4-5.0 [facility] Comment on above: Performed By: #### C HARINI WEST CMADM #### [facility] [address] [place] [address] Marielena Arianna Protein [Mass/Vol] 7.2 g/dL Normal 6.1-8.2 [facility] Comment on above: Performed By: #### C HARINI WEST CMADM #### [facility] [address] [place] [address] Marielena Arianna Sodium [Moles/Vol] 138 mmol/L Normal 137-145 [facility] Comment on above: Performed By: #### C HARINI WEST CMADM #### [facility] [address] [place], [place] [address] Marielena Arianna Urea nitrogen [Mass/Vol] 11.0 mg/dL Normal 9.0-20.0 [facility] Comment on above: Performed By: #### C HARINI WEST, JESSICA #### [facility] [address] [place], [place] [address] Marielena Arianna Urea nitrogen/Creatini ne [Mass ratio] 12.6 mg/mg Normal [facility] Comment on above: Performed By: #### C HARINI WEST, CMAKODAK #### [facility] [address] [place], [place] [address] Marielena Keller Vital Signs Date Time Vital Sign Value Performing Clinician Facility 08-15-2024 13:31-0500 Blood Pressure Location Pranay ADAMSON [facility] 08-15-2024 13:31-0500 Diastolic blood pressure 74 mm[Hg] Pranay ADAMSON [facility] 08-15-2024 13:31-0500 Heart rate 72 /min Pranay ADAMSON [facility] 08-15-2024 13:31-0500 Respiratory rate 16 /min Pranay ADAMSON [facility] 08-15-2024 13:31-0500 Systolic blood pressure 126 mm[Hg] Pranay ADAMSON [facility] 07-26-2024 13:02-0400 Body height 170.18 cm [facility] Work Phone: [facility] 07-26-2024 13:02-0400 Body mass index (BMI) [Ratio] 30.2 kg/m2 [facility] Work Phone: [facility] 07-26-2024 13:02-0400 Body weight 87.54 kg [facility] Work Phone: [facility] 07-26-2024 13:02-0400 Diastolic blood pressure 98 mm[Hg] [facility] Work Phone: [facility] 07-26-2024 13:02-0400 Respiratory rate 16 /min [facility] Work Phone: [facility] 07-26-2024 13:02-0400 SaO2% (BldA) [Mass fraction] 98 % [facility] Work Phone: [facility] 07-26-2024 13:02-0400 Systolic blood pressure 169 mm[Hg] [facility] Work Phone: [facility] 07-25-2024 14:27-0400 Body height 177.8 cm [facility] [address] [facility] [employer] [facility] 07-25-2024 14:27-0400 Body mass index (BMI) [Ratio] 27.98 kg/m2 [facility] [address] [facility] [employer] [facility] 07-25-2024 14:27-0400 Body weight 88.[address] [employer] [facility] 06-28-2024 08:14-0400 Body height 177.8 cm [employer] Work Phone: [facility] [employer] 06-28-2024 08:14-0400 Body mass index (BMI) [Ratio] 27.55 kg/m2 [employer] [employer] Phone: [facility] [employer] 06-28-2024 08:14-0400 Body weight 87.09 kg Ning [employer] Work Phone: [facility] [employer] 06-28-2024 08:14-0400 Diastolic blood pressure 84 mm[Hg] [employer] Work Phone: [facility] [employer] 06-28-2024 08:14-0400 Heart rate 85 /min [employer] Work Phone: [facility] [employer] 06-28-2024 08:14-0400 Respiratory rate 18 /min [employer] Work Phone: [facility] [employer] 06-28-2024 08:14-0400 SaO2% (BldA) [Mass fraction] 98 % Ning Wakefield DO Work Phone: [facility] 06-28-2024 08:14-0400 Systolic blood pressure 138 mm[Hg] Ning Wakefield DO Work Phone: [facility] 12-07-2018 16:37-0400 Body height 177.8 cm Chelsy Rosales CNP Work Phone: [facility] Work Phone: 12-07-2018 16:37-0400 Body mass index (BMI) [Ratio] 25.9 kg/m2 Chelsy Rosales CNP Work Phone: [facility] Work Phone: 12-07-2018 16:37-0400 Body surface area Derived from formula 2 m2 Chelsy Rosales CNP Work Phone: [facility] Work Phone: 12-07-2018 16:37-0400 Body temperature 96.6 [degF] Chelsy Rosales CNP Work Phone: [facility] Work Phone: 12-07-2018 16:37-0400 Body weight 81.76 kg Chelsy Rosales CNP Work Phone: [facility] Work Phone: 12-07-2018 16:37-0400 Diastolic blood pressure 80 mm[Hg] Chelsy Rosales CNP Work Phone: [facility] Work Phone: 12-07-2018 16:37-0400 Heart rate 54 /min Chelsy Rosales CNP Work Phone: [facility] Work Phone: 12-07-2018 16:37-0400 SaO2% (BldA) [Mass fraction] 98 % Chelsy Rosales CNP Work Phone: [facility] Work Phone: 12-07-2018 16:37-0400 Systolic blood pressure 130 mm[Hg] Chelsy Rosales PLATE AND FRAME FILTER OPERATOR Work Phone: [facility] Work Phone: Encounters Encounter Date Encounter Type Care Provider Facility Start: 08-17-2024 Registered [facility] Work Phone: Start: 08-17-2024 End: 08-17-2024 ambulatory [facility] Work Phone: [facility] Work Phone: Start: 08-17-2024 End: 08-17-2024 Patient encounter procedure [facility] Work Phone: Start: 08-15-2024 End: 08-15-2024 ambulatory AIMEE MARIA GUADALUPE Facility: [place] Start: 08-15-2024 End: 08-15-2024 Patient encounter procedure Pranay ADAMSON [facility] Start: 08-10-2024 ambulatory AIMEE MARIA GUADALUPE Facility :[facility] Start: 08-03-2024 End: 08-03-2024 ambulatory AIMEE MARIA GUADALUPE [facility] Start: 08-02-2024 End: 08-02-2024 ambulatory DELMA BROWN [facility] Start: 07-26-2024 Registered [facility] Work Phone: Start: 07-26-2024 End: 07-26-2024 ambulatory [facility] Work Phone: [facility] Work Phone: Start: 07-26-2024 End: 07-26-2024 Patient encounter procedure [facility] Work Phone: [facility] Work Phone: Start: 07-25-2024 Encounter for other preprocedural examination RAFFI KHOURYARI [facility] Start: 07-25-2024 End: 07-25-2024 Patient encounter procedure Pmh Pre-Admission Testing 2 [facility] - Pre Admit Start: 07-25-2024 End: 07-25-2024 ambulatory CAMMIE KRUSE [facility] Start: 07-25-2024 End: 07-25-2024 ambulatory GRAHAM Maine NEWTON [facility] Start: 06-30-2024 End: 06-30-2024 ambulatory NING WAKEFIELD [facility] Start: 06-28-2024 End: 06-28-2024 Bamboo flowsheet Ning Wakefield DO Work Phone: [facility] Start: 06-28-2024 End: 06-28-2024 Bamboo flowsheet Ning Wakefield DO Work Phone: [facility] Start: 06-28-2024 End: 06-28-2024 Postop follow up visit related to original px Ning Wakefield DO Work Phone: [facility] Comment on above: 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) Start: 06-28-2024 End: 06-28-2024 ambulatory NING NICOL Not Available Start: 06-20-2024 End: 06-20-2024 ambulatory Ning Nicol [facility] Work Phone: Start: 06-20-2024 End: 06-20-2024 Departed Referred DO Ning Wakefield Work Phone: [facility] Start: 06-05-2024 End: 06-05-2024 ambulatory NING NICOL Not Available Start: 06-05-2020 End: 06-05-2020 Patient encounter procedure DOCTOR MIS Facility:[facility] Start: 04-25-2019 End: 04-26-2019 Emergency department patient visit KAMALJIT SILVA [facility] Start: 12-07-2018 End: 12-07-2018 FQ visit new patient Wendi Katz PLATE AND FRAME FILTER OPERATOR Work Phone: [facility] Work Phone: Procedures Date Procedure Procedure Detail Performing Clinician Start: 01-07-2022 Adult depression scr eening assessment Pmh 2 Start: 12-07-2018 HYPERTENSION (SYSTEMIC) Chelsy Rosales PLATE AND FRAME FILTER OPERATOR Work Phone: Start: 12-07-2018 Operative procedure on ankle Chelsy Rosales PLATE AND FRAME FILTER OPERATOR Work Phone: Start: 12-07-2018 Operative procedure on hand Chelsy Rosales PLATE AND FRAME FILTER OPERATOR Work Phone: Start: 12-07-2018 Surgical procedure Levar Rosales PLATE AND FRAME FILTER OPERATOR Work Phone: Angiography Pranay NILL Closed fracture of a nkle (disorder) Pranay NILL Closed fracture of l eft wrist (disorder) Pranay NILL Colonoscopy Pranay NILL Colonoscopy Pranay NILL Extraction of cataract Rex abdi NILL Plan of Treatment Date Care Activity Detail Author Start: 06-04-2030 DTaP,Tdap and Td Vaccines (4 - Td or Tdap) DTaP,Tdap and Td Vaccines (4 - Td or Tdap) [facility] Start: 07-25-2025 Adult BMI Screening Adult BMI Screen ing [facility] Start: 07-25-2025 Tobacco Screening Tobacco Screening [facility] Start: 07-28-2024 End: 07-28-2024 Admission to same day surgery center 07/28/2024 9:00 AM EDT - 07/28/2024 10:00 AM EDT Surgery [facility] - Surgery [address] [place] [address] Cammie Kruse MD [address] [place] [address] INSERTION PORT A CATH-MEDI PORT FOR CHEMO [29807 (CPT )] [facility] Comment on above: INSERTION PORT A CAT H-MEDI PORT FOR CHEMO [83269 (CPT )] Start: 07-28-2024 End: 07-28-2024 Anesthesia consultation 07/28/2024 9:00 AM EDT Anesthesia Event [facility] [address] [facility] [id number] Ruperto Ponce, DO [address] [facility], [place] [id number] [facility] Start: 07-28-2024 End: 07-28-2024 Insj tunneled ctr vad w/subq port age 3 yr/> INSERTION PORT A CATH Malignant neoplasm of rectum (CMS-HCC) Encounter for therapeutic drug monitoring 07/28/2024 9:00 AM EDT [facility] Start: 07-28-2024 Subsequent hospital visit by physician 07/28/2024 9:00 AM EDT Hospital Encounter [facility] [address] [facility] [id number] Cammie Kruse MD [address], [facility] [address] [place] [address] [facility] Start: 06-28-2024 End: 06-28-2025 Creatine Creatine Lab Routine Adenocarcinoma of rectum (HCC) (CMS/HCC) Expected: 06/28/2024 (Approximate), Expires: 06/28/2025 [facility] Comment on above: Expected: 06/28/2024 (Approximate), Expires: 06/28/2025 Start: 06-28-2024 End: 06-28-2025 CT CHEST ABDOMEN PELVIS W IV CONTRAST CT CHEST ABDOMEN PELVIS W IV CONTRAST Imaging Routine Adenocarcinoma of rectum (HCC) (CMS/HCC) Expected: 06/28/2024, Expires: 06/28/2025 [facility] Work Phone: Comment on above: Expected: 06/28/2024 , Expires: 06/28/2025 Start: 06-28-2024 End: 06-28-2025 MR Pelvis WO and W contrast IV MR pelvis w and wo contrast Imaging Routine Adenocarcinoma of rectum (HCC) (CMS/HCC) Expected: 06/28/2024, Expires: 06/28/2025 [facility] Comment on above: Expected: 06/28/2024 , Expires: 06/28/2025 Start: 06-28-2024 End: 06-28-2024 Patient encounter procedure 06/28/2024 8:15 AM EDT Office Visit [facility] [address] [place] [address] Ning Wakefield DO [address] [place] [address] Arrived [facility] Comment on above: Arrived Start: 05-28-2024 COVID-19 Vaccine ( season) COVID-19 Vaccine ( season) [facility] Start: 05-28-2024 Influenza vaccination Influenza Vacc ine [facility] Start: 01-07-2023 Depression Screening Depression Scre ening [facility] Start: 2013 Fall Risk Screening Fall Risk Screen ing [facility] Start: 1967 Administration of varicella zoster vaccine Zoster (Shingles) Vaccine (1 of 2) [facility] Start: 1950 Tobacco Counseling Tobacco Counselin g [facility] Immunizations Immunization Date Immunization Notes Care Provider Fa cility 06-27-2021 SARS-CoV-2 (COVID-19 ) mRNA BNT-162b2 ghassan ADAMSON [facility] Comment on above: Result Comment: 2023: [id number] 06-27-2021 influenza virus vaccine, unspecified formulation Pm 2 [facility] 01-03-2021 SARS-CoV-2 (COVID-19 ) mRNA BNT-162b2 ghassan ADAMSON [facility] 12-13-2020 SARS-CoV-2 (COVID-19 ) mRNA BNT-162b2 ghassan ADAMSON [facility] 04-16-2018 tetanus toxoid, redu mary jo diphtheria toxoid, and acellular pertussis vaccine, adsorbed [facility] 2 [facility] 07-08-2017 influenza, high dose seasonal, preservative-free DO Ning Wakefield Work Phone: [facility] 06-07-2017 tetanus toxoid, redu mary jo diphtheria toxoid, and acellular pertussis vaccine, adsorbed DO Ning Wakefield Work Phone: [facility] Payers Date Payer Category Payer Self-pay [id number] 2022 Medicare [employer] [id number] 2022-Present [address] [place] [address] [id number] 2022 Medicare HMO [employer] [id number] 2022 Medicare [id number] 1959 Unknown [id number] 1948 Unknown [id number] 1948 Unknown [id number] 1948 Unknown [id number] 1948 Unknown [id number] 1948 Unknown [id number] 1948 Unknown [id number] 1948 Unknown [id number] 1948 Unknown [id number] 1948 Unknown [id number] Medicare 1 - Medicare [facility] CGS PPS 2V [id number] Medicare Medicare [id number] [facility] Health [id number] Unknown [id number] Unknown [id number] Social History Date Type Detail Facility Assertion Finding of alcoh ol intake (finding) [facility] Work Phone: Assertion Gender identity finding (finding) [facility] Work Phone: Assertion Heterosexual (finding) [facility] Work Phone[facility] Assertion Finding of sexua l orientation (finding) [facility] Work Phone: Tobacco smoking status Unknown if ever smoked [facility] Start: 08-11-2017 End: 08-11-2017 Tobacco smoking status NHIS Never smoked tobacco (finding) [facility] Start: 1950 Sex Assigned At Male [facility] Start: 1950 Sex assigned at Not on file [facility] Start: 11-07-2020 End: 07-25-2024 Gender identity Not on file [facility] Start: 12-23-2022 Tobacco use and exposure User of smokeless tobacco [facility] History of tobacco use Chews Tobacco [facility] Start: 07-25-2024 Alcoholic beverage intake Current drinker of alcohol (finding) [facility] Start: 11-07-2020 End: 07-25-2024 Alcoholic beverage intake [facility] Start: 07-25-2024 Alcohol Comment beer daily, 2- 4 cans per day and some occassional shots of whiskey [facility] Start: 11-02-2015 End: 08-17-2024 Sex Male (finding) [facility] NEGATED: Highlighted row Assertion Exposure to pollution (event) [facility] Work Phone: NEGATED: Highlighted row Assertion Tobacco user (finding) [facility] Work Phone: NEGATED: Highlighted row Assertion Finding relating to drug misuse behavior (finding) [facility] Work Phone: Medical Equipment Procedure Code Equipment [...] 06-25-2017 Lens Iol Ultrase rt 17.0d - [id number] - [id number] Start: 06-29-2023 Lens Iol Ultrase rt 18.5d - [id number] - [id number] Start: 07-13-2023 Goals Date Patient Goal Desired Activity /State Personal health goal Comment on above: Formatting of this n ote might be different from the original. Evaluation of progress towards goal: Safe transition from hospital to home. Functional Status Date Assessment Result Facility 08-15-2024 Functional Status N/A [facility] [place] Clinical Notes 06-28-2024 to 08-15-2024 Note Date & Type Note Facility 08-15-2024 Note General Surgery Offi ce/Clinic Note Chief Complaint consultation for port placement HPI Staff 74 year old male presents on consultation from Dr. Singh for port placement. Patient diagnosed with rectal adenocarcinoma. Patient on Eliquis for a.fib. Plan to start chemo 08/29. History of Present Illness 74 yo male with h/o atrial fibrillation, on Eliquis, htn, hypercholesterolemia, [place], recently diagnosed with advanced rectal cancer, referred for [id number] for chemotherapy; no h/o previous port or central line, no clavicular fx or XRT to neck/chest; on Eliquis, no asa or NSAID use; chews tobacco daily. Review of Systems PHQ Score Initial Depression Screen Score: 0 SCORE ROS - Provider Constitutional: no fever, no sweats, no weight loss. Eyes: no glasses, no blurred vision, no visual loss. ENMT: no dentures, no hoarseness, no swallowing difficulties, no hearing loss, no ear infection(s), no nose bleeds. Cardiovascular: normal blood pressure, no chest pain, regular heartbeat, no heart murmur. Respiratory: no shortness of breath, no cough, no asthma, no wheezing. Gastrointestinal: no nausea, no vomiting, no diarrhea, no constipation, no blood in stool, no change in bowel habits, no abdominal pain, no hepatitis. Genitourinary: no kidney stones, no urine infection, no dysuria. Musculoskeletal: no pain, no weakness. Skin: no changing moles, no rash, no skin lumps. Neurologic: no seizures, no epilepsy, no headache. Psychiatric: no emotional or psychiatric problem. Heme/Lymph: no bleeding problems, no anemia, no blood clots, no transfusions. Allergy/Immunologic: no swollen lymph nodes/glands, no IV drug abuse. Other: Additional ROS info: Except as noted in the above Review of Systems and in the History of Present Illness, all other systems have been reviewed and are negative or noncontributory. Physical Exam Vitals & Measurements HR: 72(Peripheral) RR: 16 BP: 126/74 HT: 70 in HT: 177.8 cm WT: 87.5 kg WT: 192.904 lb BMI: 27.68 HEENT: normal conjunctiva, sclera clear, no scleral icterus, EOM intact, PERRLA, oral mucosa moist without lesions. Neck: trachea midline, no mass, symmetric, no thyromegaly or nodules, no adenopathy Respiratory: lungs CTA, respirations non labored.chest: no clavicular deformities Cardiovascular: regular rate and rhythm, no murmur, no pedal edema or varicosities. Gastrointestinal: obese, soft, non distended, no tenderness, no masses, no palpable hernias, diastasis recti no, no hepatosplenomegaly; normal bs Lymphatic: no cervical adenopathy, no supraclavicular adenopathy. Musculoskeletal: normal gait, digits and nails without infection, nodes, cyanosis, clubbing. Skin: no rashes, no lesions, no ulcers, no subcutaneous nodules, induration. Psychiatric/Neuro: oriented to time, place, person, judgement normal, affect appropriate for age, insight intact, no focal deficits. Tests: labs reviewed, x-rays reviewed, review of old records completed , Discussed surgical options, risks, and possible complications with patient. Assessment/Plan 1. Adenocarcinoma of rectum (C20: Malignant neoplasm of rectum) plan [id number]-l-[id number] insertion under general anesthesia, informed consent obtained. Ancef 2 gms IV prior to OR SCDs 2. Poor venous access (I87.8: Other specified disorders of veins) see # 1 Follow-up No qualifying data available Problem List/Past Medical History Ongoing Adenocarcinoma of rectum Alcohol dependence Anemia Atrial fibrillation BMI 27.0-27.9,adult Bradycardia Cerebral hemorrhage Chronic bronchitis Dementia associated with alcoholism Essential hypertension Essential tremor. Gastroesophageal reflux disease Generalized anxiety disorder Heart failure with mid range ejection fraction History of myocardial infarction Hypercholesterolemia Hyperlipidemia Overweight Poor venous access Seizure after head injury Historical No qualifying data Procedure/Surgical History Angiogram, Cataract extraction, Closed fracture of ankle, Closed fracture of left wrist, Colonoscopy, Colonoscopy. Medications atorvastatin 20 mg Tab diltiazem CD 120 mg/24 hours Cap-ER Eliquis 5 mg oral tablet, BID hydrochlorothiazide-losartan 12.5 mg-100 mg oral tablet Allergies No Known Allergies No Known Medication Allergies Social History Alcohol Current, Beer, Daily, 2 drinks/episode average., 08/15/2024 Substance Abuse - Denies Substance Abuse, 08/15/2024 Tobacco Never (less than 100 in lifetime) Tobacco Use:. Smokeless tobacco user within last 30 days Smokeless Tobacco Use:. Oral, Started age 22.0 Years., 08/15/2024 Family History Family history is negative Immunizations Vaccine Date Status Comments SARS-CoV-2 (COVID-19) mRNA BNT-162b2 vax 06/27/2021 Recorded 2024-08-14: TPV70 SARS-CoV-2 (COVID-19) mRNA BNT-162b2 vax 01/03/2021 Recorded SARS-CoV-2 (COVID-19) mRNA BNT-162b2 vax 12/13/2020 Recorded [facility] Comment on above: Result Comment: Elec tronically Signed By: JUAN DIEGO MINAYA, Pranay Guerra\Date and Time Signed: 08/15/24 14:12 EST 08-03-2024 Note Patient: Alexei colindres Procedure Summary Date: 08/03/24 Room / Location: [facility] Endoscopy Anesthesia Start: 1215 Anesthesia Stop: 1303 Procedure: ENDOSCOPIC ULTRASOUND (LOWER) Diagnosis: Rectal mass Scheduled Providers: Clem Gallardo MD; Fredrick Domínguez MD; LUISA Martin Responsible Provider: Fredrick Domínguez MD Anesthesia Type: MAC ASA Status: 3 Anesthesia Type: MAC Vitals Value Taken Time BP 98/47 08/03/24 1316 Temp 36.6 ???C (97.9 ???F) 08/03/24 1303 Pulse 74 08/03/24 1316 Resp 20 08/03/24 1316 SpO2 100 % 08/03/24 1316 Anesthesia Post Evaluation Patient location during evaluation: PACU Patient participation: complete - patient participated Level of consciousness: awake Pain score: 1 Pain management: adequate Airway patency: patent Cardiovascular status: acceptable Respiratory status: acceptable Patient is hemodynamically stable and is able to be discharged from PACU per anesthesia protocol. No notable events documented. [facility] 08-03-2024 Note Patient: Alexei colindres Procedure Summary Date: 08/03/24 Room / Location: [facility] Endoscopy Anesthesia Start: 1215 Anesthesia Stop: Procedure: ENDOSCOPIC ULTRASOUND (LOWER) Diagnosis: Rectal mass Scheduled Providers: Clem Gallardo MD; Fredrick Domínguez MD; LUISA Martin Responsible Provider: Fredrick Domínguez MD Anesthesia Type: MAC ASA Status: 3 Anesthesia Post [facility] Patient Monitor: direct observation Transport: uneventful Patient condition is: stable [facility] 08-03-2024 Note Patient: Alexei colindres Procedure Information Date/Time: 08/03/24 1230 Scheduled providers: Clem Gallardo MD; Fredrick Domínguez MD; LUISA Martin Procedure: ENDOSCOPIC ULTRASOUND (LOWER) Location: [facility] Endoscopy Relevant Problems Anesthesia (within normal limits) Cardio Denies chest pain/SOB Endo (within normal limits) /Renal (within normal limits) Neuro/Psych (+) TIA (transient ischemic attack) (Resolved) Pulmonary COPD, FVC 64% of predicted normal (+) Chronic bronchitis (CMS/HCC) Clinical information reviewed: Physical Exam Airway Mallampati: II TM distance: >3 FB Neck ROM: full Cardiovascular - normal exam Dental (+) edentulous Pulmonary (+) rhonchi Abdominal Anesthesia Plan ASA 3 MAC The patient is not a current smoker. Patient was not previously instructed to abstain from smoking on day of procedure. Patient did not smoke on day of procedure. intravenous induction Anesthetic plan and risks discussed with patient. Plan discussed with CAA. Additional Equipment Requests [facility] 08-02-2024 Note Subjective Patient ID: Alexei Velasquez is a 74 y.o. male who presents for Rectal Cancer. Alexei Velasquez is a 74 y.o. male who presents for consultation regarding his rectal cancer. The patient began having rectal bleeding in April and was referred for colonoscopy. Colonoscopy on 06/20 revealed poorly differentiating adenocarcinoma infiltrating the submucosa. He is currently seeing oncology. He was referred here to discuss the option of surgery. He has a EUS schedule tomorrow to establish staging. He denies any current pain or rectal bleeding. All of his outside records were reviewed. I discussed the patient with GI and Oncology. Review of Systems Constitutional: Negative. HENT: Positive for hearing loss. Negative for congestion, facial swelling, rhinorrhea, sinus pressure and sinus pain. Respiratory: Positive for shortness of breath. Negative for cough and wheezing. Cardiovascular: Positive for palpitations. Negative for chest pain and leg swelling. Gastrointestinal: Negative. Endocrine: Negative for cold intolerance and heat intolerance. Genitourinary: Negative for difficulty urinating, frequency, genital sores and hematuria. Neurological: Positive for tremors, speech difficulty, weakness and light-headedness. Negative for dizziness, seizures, syncope, numbness and headaches. Hematological: Negative. Objective Visit Vitals BP 134/70 Pulse 99 Temp 36.2 ???C (97.1 ???F) Physical Exam Constitutional: Appearance: Normal appearance. HENT: Head: Normocephalic and atraumatic. Nose: Nose normal. Cardiovascular: Rate and Rhythm: Normal rate. Pulmonary: Effort: Pulmonary effort is normal. Abdominal: General: Abdomen is flat. Palpations: Abdomen is soft. Musculoskeletal: General: Normal range of motion. Cervical back: Normal range of motion. Skin: General: Skin is warm. Neurological: General: No focal deficit present. Mental Status: He is alert and oriented to person, place, and time. Psychiatric: Mood and Affect: Mood normal. Behavior: Behavior normal. Thought Content: Thought content normal. Judgment: Judgment normal. Assessment/Plan Diagnoses and all orders for this visit: Rectal cancer (CMS/HCC) He will have EUS tomorrow to establish staging. When staging is establish will make plan for surgery vs chemotherapy. Diagnosis Plan 1. Rectal cancer (CMS/HCC) No orders of the defined types were placed in this encounter. No results found for this or any previous visit (from the past 36 hour(s)). No follow-ups on file. Elkin Shepard, MS3 [facility] 07-26-2024 Evaluation note Diagnosis Onset Date Resolution Adenocarcinoma of rectum acute July 26, 2024 12:38pm Adenocarcinoma of rectum acute August 17, 2024 9:17am [facility] Work Phone: [phone] Instructions* Patient Instructions* Casi Centeno RN - 07/25/2024 2:15 PM EDT Preoperative Education Checklist- General Surgery date: 07/28/24 Surgery time: 0900 a.m. Arrival time: 0700 a.m. 1. Bring a photo ID and your insurance card with you the day of surgery. You will check in at the main lobby of the [facility]- registration desk is straight ahead as soon as you walk in. Tell them you are here for surgery. 2. If you have a Living Will/Durable Power of Mop Machine Operator for Health Care that is not on [...] after you have bathed. 5. NO nail vietnamese/acrylic on at least one finger. If you are having a hand, wrist or foot surgery then all nail vietnamese and artificial/acrylic nails must be removed from [...] least 8 hours and marijuana for 24 hoursprior to arrival for your surgery. 16. If [...] please call the Preadmission Testing office at [phone], Mon.-Fri. 7 a.m.-3 p.m. Leave a voicemail [...] after surgery- do not stop unless directed maile your physician. You may also be given [...] is normal. Call your doctor if you noticeany of the following: -Increased redness or hardening [...] water and pat the area dry with aclean towel. -No re-using wash cloths or towels; get a fresh one to clean your incision. -Do not soak in the bathtub, go swimming or use a hot tub ([employer]), or perform activities where your incision is [...] appointment with your doctor. [facility] Miscellaneous Notes* Perioperative Nursing Note - Casi Centeno RN - 07/25/2024 2:15 PM EDT Preoperative Education Checklist- General Surgery date: 07/28/24 Surgery time: 0900 a.m. Arrival time: 0700 a.m. 1. Bring a photo ID and your insurance card with you the day of surgery. You will check in at the main lobby of the [facility]- registration desk is straight ahead as soon as you walk in. Tell them you are here for surgery. 2. If you have a Living Will/Durable Power of Mop Machine Operator for Health Care that is not on [...] after you have bathed. 5. NO nail vietnamese/acrylic on at least one finger. If you are having a hand, wrist or foot surgery then all nail vietnamese and artificial/acrylic nails must be removed from [...] least 8 hours and marijuana for 24 hoursprior to arrival for your surgery. 16. If [...] please call the Preadmission Testing office at [phone], Mon.-Fri. 7 a.m.-3 p.m. Leave a voicemail [...] after surgery- do not stop unless directed maile your physician. You may also be given [...] is normal. Call your doctor if you noticeany of the following: -Increased redness or hardening [...] water and pat the area dry with aclean towel. -No re-using wash cloths or towels; [...] to the follow-up appointment with your doctor. * Perioperative Nursing Note - Casi Centeno RN - 07/25/2024 2:15 PM EDT Hibiclens and surgical instructions reviewed. Patient verbalized understanding. documented in [facility]Martin [facility]-29-[facility]24 Nurse Note* Perioperative Nursing Note - Casi Centeno RN - 07/25/2024 2:15 PM EDT Preoperative Education Checklist- General Surgery date: 07/28/24 Surgery time: 0900 a.m. Arrival time: 0700 a.m. 1. Bring a photo ID and your insurance card with you the day of surgery. You will check in at the main lobby of the [facility]- registration desk is straight ahead as soon as you walk in. Tell them you are here for surgery. 2. If you have a Living Will/Durable Power of Mop Machine Operator for Health Care that is not on [...] after you have bathed. 5. NO nail vietnamese/acrylic on at least one finger. If you are having a hand, wrist or foot surgery then all nail vietnamese and artificial/acrylic nails must be removed from [...] least 8 hours and marijuana for 24 hoursprior to arrival for your surgery. 16. If [...] please call the Preadmission Testing office at [phone], Mon.-Fri. 7 a.m.-3 p.m. Leave a voicemail [...] after surgery- do not stop unless directed maile your physician. You may also be given [...] is normal. Call your doctor if you noticeany of the following: -Increased redness or hardening [...] water and pat the area dry with aclean towel. -No re-using wash cloths or towels; [...] to the follow-up appointment with your doctor. [facility] [phone] Nurse Note* Perioperative Nursing Note - Casi Centeno RN - 07/25/2024 2:15 PM EDT Hibiclens and surgical instructions reviewed. Patient verbalized understanding. [facility] Note Attestation signed by Clem Gallardo MD at 07/03/2024 9:36 AM I personally saw and examined the patient on the same date of service as resident/fellow . I discussed the findings and therapeutic plan with the resident/fellow . I agree with the documentation. [facility] Gastroenterology New Patient Visit - History & Physical CHIEF COMPLAINT Chief Complaint Patient presents with New Patient adenocarcinoma of rectum HISTORY OF PRESENT ILLNESS: Alexei Velasquez is a 73 y.o. male has hx of a-fib for that patient is on eliquis, essential hypertension who recently had ER visit for hematochezia. Patient followed up with the GI at [facility] where he underwent colonoscopy which revealed [...] PROT B12/Folate/Iron studies: No results found for: [id number] , FOLATE , IRON , TIBC , UIBC , IRONSAT , FERRITIN Viral Hepatitis No results found for: HEPAIGM , HAV , HEPBSAG , HEPBSAB , HEPBEAB , HEPBIGM , HEPBCAB , HEPBCOREAB , HBVNAT , HCVSCR , HEPCAB , HCVNAT , HCVPCR , HCVTMA Liver Workup No results found for: JENNIFER , SMOOTHMUSCAB , CERULOPLSM , [id number] , TTGA , IGA , TSH , FREET4 , AFP Pancreatitis No results found for: AMYLASE , LIPASE , TRIG , CALCIUM ASSESSMENT AND PLAN: Alexei Velasquez is a 73 y.o. male has hx of a-fib for that patient is on eliquis, essential hypertension who recently had ER visit for hematochezia. Patient followed up with the GI at [facility] where he underwent colonoscopy which revealed [...] No complaints at t (more content not included)...[facility]10-02-2024 History of Present illness Narrative* Ning Wakefield, DO - 06/28/2024 8:15 AM EDT Images from the original note were not included. General Surgery H&P Alexei Velasquez 1950 Alexei Velasquez is a 73 y.o. male presents [...] of staging workup including CT Chest/Abd/plv, MRI pelvis,heme-onc referral and GI referral for possible EMR. [...] Tobacco Use: High Risk (07/13/2023) Received from [employer] Patient History Smoking Tobacco Use: Never Smokeless Tobacco Use: Current Passive Exposure: Not on file Alcohol Use: Not on file Depression: Not at risk (01/07/2022) Received from [employer] PHQ-2 Total Score: 2 Physical Activity: Not [...] Information Document Information Other: Other PATHOLOGY REPORT [facility] 06/20/2024 00:00 Attached To: Alexei Velasquez Source Information ASSESSMENT AND PLAN: Assessment/Plan [...] of staging workup including CT Chest/Abd/plv, MRI pelvis,heme-onc referral and GI referral for possible EMR. [...] you, Essence Wakefield DO documented in this encounterNOMS HealthcareEvaluation + Plan note No data available for this section [facility] Evaluation note Assessments not supported for this document type No Assessments [facility] Work Phone: Evaluation noteNo assessment information available [facility] Work Phone: Evaluation note* Diagnosis Adenocarcinoma of rectum (HCC) (CMS/HCC)- Primary documented in this encounter [facility]* Diagnosis Onset Date Resolution Status Adenocarcinoma of rectum acu te [facility] Work Phone: History of Present illness Narrative History of Present Illness not supported for this document type No History of Present Illness [facility] Work Phone: Hospital Discharge instructions No data available for this section [facility] Instructions Instructions not supported for this document type No Instructions [facility] Work Phone: patient problem outcome Narrative Includes: Evaluations & Outcomes for active Goals No Outcomes [facility] Work Phone: progress note No data available for this section [facility] Reason for referral (narrative)* Consultation (Routine) - Pending Review Specialty Diagnoses / Procedures Referred By Contac t Referred To Contact Oncology Diagnoses Adenocarcinoma of rectum (HCC) (CMS/HCC) Procedures [place] OFFICE/OUTPATIENT NEW HIGH MDM 60 MINUTES Ning Wakefield DO [address] [facility] [address] [place] [address] Aimee Singh MD [address] [place] [address] Referral ID Status Reason Start Date Expiration Date Visits Requested Visits Authorized [id number] Pending Review Specialty Services Required 06/28/2024 12/25/2024 1 1 * Imaging (Routine) - Pending Review Specialty Diagnoses / Procedures Referred By Contac t Referred To Contact Radiology Diagnoses Adenocarcinoma of rectum (HCC) (CMS/HCC) Procedures MR pelvis w and wo contrast Ning Wakefield, [address] [facility] [address] [place] [address] [facility] [address] [place] [address] Referral ID Status Reason Start Date Expiration Date V isits Requested Visits Authorized [id number] Pending Review 06/28/2024 12/25/2024 1 1 * Imaging (Routine) - Pending Review Specialty Diagnoses / Procedures Referred By Contac t Referred To Contact Radiology Diagnoses Adenocarcinoma of rectum (HCC) (CMS/HCC) Procedures CT CHEST ABDOMEN PELVIS W IV CONTRAST Ning Wakefield, [address] [facility] [address] [place] [address] [place] [address] Referral ID Status Reason Start Date Expiration Date V isits Requested Visits Authorized [id number] Pending Review 06/28/2024 12/25/2024 1 1 [facility] systems Narrative - Reported Review of Systems not supported for this document type No Review of Systems [facility] Work Phone: Summary Purpose Family History Description [...] Comments 04/16/2018 8:43 PM 04/19/2018 4:43 PM Advance Directive Response Recorded Date/ Time Advance Directives No May 10:06am Physical Exam Physical Exam not supported for this document type No Physical Exam Recorded Chief Complaint and Reason for Visit Chief Complaint Admit Date Unknown June 20, 2024 8:25am NEW Rectal cancer July 26, 2024 1 2:38pm Follow Up, Rectal Cancer August 17, 2024 9:17am Rectal cancer August 17, 2024 9:47am Reason for Visit Admit Date Adenocarcinoma of rectum July 26, 024 12:38pm Adenocarcinoma of rectum August 17, 2024 9:17am Additional Source Comments (unrecognized sect ion and content) No Status Records FoundNo Status Records FoundNo Status Records FoundNo Status Records FoundNo Status Records FoundNo Status Records FoundNo Status Records FoundNo Status Records Found INFORMATION SOURCE (unrecogn ized section and content) DATE CREATED AUTHOR 04/27/2019 Alia [facility] DATE CREATED AUTHOR AUTHOR'S ORGANIZ ATION 06/12/2020 [facility] DATE CREATED AUTHOR AUTHOR'S ORGANIZ ATION 06/29/2024 [facility] DATE CREATED AUTHOR AUTHOR'S ORGANIZ ATION 07/27/2024 [facility] DATE CREATED AUTHOR AUTHOR'S ORGANIZ ATION 08/04/2024 [facility] DATE CREATED AUTHOR AUTHOR'S ORGANIZ ATION 08/11/2024 [facility] DATE CREATED AUTHOR AUTHOR'S ORGANIZ ATION 08/12/2024 [facility] DATE CREATED AUTHOR AUTHOR'S ORGANIZ ATION 08/16/2024 [facility] Care Teams (unrecognized sec tion and content) Team Status: Inactive Member Role Status Dates Ning Nicol , DO Attending Provider Active Star t: June 20, 2024 End: June 20, 2024 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 Start Date End Date Shabnam Villarreal MD [address] [place] [address] PCP - General Behavioral Health 06/05/24 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 Start Date End Date Shabnam Villarreal MD [address] [place] [address] PCP - General Behavioral Health 06/05/24 Team Status: Active Member Role Status Dates [facility] Primary Care Provider Active Team Status: Inactive Member Role Status Dates Angelina Tomlinson MD Attending Provider Active Start: July 26, 2024 End: July 26, 2024 [facility] Primary Care Provider Active Start: July 26, 2024 End: July 26, 2024 Aimee Singh MD Referring Provider Active St art: July 26, 2024 End: July 26, 2024 Team Status: Active Member Role Status Dates [facility] Primary Care Provider Active Start: July 26, 2024 Angelina Tomlinson MD Attending Provider Active Start: July 26, 2024 Aimee Singh MD Referring Provider Active St art: July 26, 2024 [employer]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 Start Date End Date Raffi Byrd MD [address] [place] [address] PCP - General Internal Medicine 01/01/22 Team Status: Inactive Member Role Status Dates [facility] Primary Care Provider Active Start: August 17, 2024 End: August 17, 2024 Angelina Tomlinson MD Attending Provider Active Start: August 17, 2024 End: August 17, 2024 Team Status: Active Member Role Status Dates [facility] Primary Care Provider Active Start: August 17, 2024 Angelina Tomlinson MD Attending Provider Active Start: August 17, 2024 Aimee Singh MD Referring Provider Active St art: August 17, 2024 Goals (unrecognized section and content) Goals may [...] BE BASED ON THE PRIMARY CLINICAL RECORDS. [employer] provides no warranty or guarantee of the accuracy or completeness of information in this document.
[2024-08-18 13:41] LABS: Anion Gap 15.1; BUN Creatinine Ratio 17.8; Calcium 8.5 mg/dL (8.5-10.1); Carbon Dioxide 24.2 mmol/L (21.0-32.0); Chloride 100 mmol/L (98-107); Estimated GFR (African America >60 (>=60 mL/min/1.73m^2); Estimated GFR (Non-African Ame >60 (>=60 mL/min/1.73m^2); Glucose 85 mg/dL (74-106); Potassium 4.3 mmol/L (3.5-5.1); Sodium 135 mmol/L (136-145)
[2024-08-18 13:52] LABS: INR 1.03; Partial Thromboplastin Time 29.3 sec (22.3-36.2); Prothrombin Time 10.9 sec (9.0-11.6)
== END 2024-08-18 12:21 | disposition home or self-care (01) ==
LOC: PST 12:21
PROVIDERS: Visit Provider Surgery
DX: Z01.812 Encounter for preprocedural laboratory examination (principal); C20 Malignant neoplasm of rectum; I87.8 Other specified disorders of veins
CPT/HCPCS: 36415; 80048; 85610; 85730

== ENCOUNTER 2024-08-30 10:20 | Day surgery (SDC) | payer MEDICARE, SELFPAY ==
[2024-08-18 13:26] VITALS: BP 149/79; PULSE 71; TEMP 36.3; O2SAT 99; BMI 27.8
[2024-08-30] VITALS (12 sets, daily range): BP systolic 102–131; BP diastolic 62–94; PULSE 68–87; TEMP 36–36.5; O2SAT 92–99; BMI 27.3
--- NOTE | 2024-08-30 | OP_ITS ---
OPERATION DATE: 08/30/2024 PREOPERATIVE DIAGNOSIS: Rectal cancer, need for secure central access for chemotherapy. POSTOPERATIVE DIAGNOSIS: Rectal cancer, need for secure central access for chemotherapy. PROCEDURE: Right external jugular Infusaport insertion. SURGEON: Pranay Mejía M.D. ANESTHESIA: General with laryngeal mask airway, as well as local with 0.5% Marcaine plain. ESTIMATED BLOOD LOSS: Less than 15 mL. INDICATIONS AND CONSENT: Patient is a 74-year-old male with history of rectal cancer, requires chemotherapy. Secure central access has been required from Oncology. Indications, risks, benefits, alternatives of proceeding with Infusaport insertion were explained extensively to the patient, including the risks of bleeding, infection, scarring, pain, pneumothorax, catheter fracture, blood clot, pulmonary embolus, heart attack, anesthetic complications, need for further surgery or catheter removal. All of his questions were answered. Informed consent was obtained. PROCEDURE: Patient brought to the operating room, placed in the supine position. General anesthesia was induced. Patient was prepped and draped in the usual sterile fashion. He was placed in the Trendelenburg position. An incision was made perpendicular to the long axis of the right external jugular vein, carried down through the platysma using sharp dissection as well as electrocautery. External jugular vein was isolated between two 2-0 Vicryl ties. The cephalad tie was tied down. A venotomy was then made with a #11 blade. The preflushed catheter was then inserted under fluoroscopic guidance, adjusted so that it was in good position in the distal SVC at the level of the nea. Distal tie was then tied down. The catheter aspirated blood easily and was flushed with saline. Attention was then turned to the chest wall where an area below the clavicle, to the right of the sternum, was chosen for the port. A curvilinear incision was made in the area of the skin crease overlying the rib, carried down through subcutaneous tissue using electrocautery. A pocket was then created above the pectoralis fascia. Catheter was then tunneled from the neck incision to the chest wall incision. Flush was checked once again. The catheter was noted to be in good position. It was then cut and attached to the preflushed port. The port aspirated blood easily. It was then flushed with heparinized saline. Port was then secured to the pectoralis fascia using interrupted 2-0 Prolene sutures. There was good hemostasis. Catheter position was checked once again. There was no kinking or twisting along its course. There was good position of the distal catheter. Incision was then closed in layers with interrupted 3-0 Monocryl suture as well as 4-0 subcuticular Monocryl suture. The subcutaneous tissue was infiltrated with 0.5% Marcaine. Dermabond glue was then applied, as well as sterile pressure dressing. Sponge and needle counts were correct x2 per nursing personnel. Patient tolerated procedure well, was sent to recovery room in good condition, where a portal chest x-ray is pending at the time of this dictation. CC: Patient?s family physician Dr. Reji DENG
--- NOTE | 2024-08-30 | FL_ITS ---
[address] [address] Patient Name: ROLDAN COTE MRN: [id number] date: 1950 Sex: M Assigned Patient Location: SURGOUT Current Patient Location: [facility] Accession/Order Number: [id number] Exam Date: 08/30/2024 13:45 Report Date: 09/01/2024 08:57 At the request of: JOHN ADAMSON Procedure: FL fluoroscopy <1hr NON-READ EXAM: FL fluoroscopy <1hr NON-READ HISTORY: TECHNIQUE: FINDINGS: Please see Operative Report. Electronically authenticated by: RADIOLOGIST NO Date: 09/01/2024 08:57
--- OUTSIDE RECORDS SUMMARY | 2024-08-30 10:35 | XMS_ITS | CCD ---
Author Organization [facility] [place] [facility] Care Team Providers Care Airline Attendant Name Role Phone RICARDO KAMALJIT Tapia Primary Care Unavailable MISC, DOCTOR Primary Care Unavailable SAVANNAH HERNÁNDEZ Admitting Unavailable SAVANNAH HERNÁNDEZ Attending Unavailable BLAIR KOCH Consulting Unavailable GRAHAM LINN V Consulting Unavailable ROHIT BRIZUELA Consulting Unavailable SAVANNAH HERNÁNDEZ Consulting Unavailable GIBRAN WAY Consulting Unavailable Chelsy Rosales CNP Primary Care Provider [phone] DO Ning Wakefield Attending Provider [phone] NING WAKEFIELD Attending Unavailable NING WAKEFIELD Attending Unavailable Phil MINAYA, [facility] Primary [facility] Provide r [facility], [facility] Primary Care Provider MD Angelina Tomlinson Attending Provider MD Aimee Singh Referring Provider Jesu Gilbert MD, [facility] Primary Care Provider KHORSAND MELISSA, RAFFI [...] Care Physician Ning Wakefield DO Attending Provider [facility] Primary Care Provider Angelina Tomlinson MD Attending Provider Aimee Singh MD Referring Provider [phone] Ning Wakefield Attending Unavailable Ning Wakefield Admitting Unavailable [facility] Primary Care Unavailable Angelina Tomlinson Admitting Unavailable Angelina Tomlinson Attending Unavailable Aimee Singh Referring Unavailable Allergies Allergy Classification Reported Allergen(s) Allergy Type Date of Onset Reaction(s) Facility (1 source) -No Known Enviornmental Allergies; Translations: [-No Known Enviornmental Allergies] Allergy to substance [facility] Work Phone: (1 source) No Known Medication Allergies; Translations: [No Known Medication Allergies] Propensity to adverse reactions (disorder) [facility] Repository Medications Current Medications Medication Drug Class(es) [...] 08-14-2024 Start: 06-29-2023 take 1 capsule by [facility] once daily Diltiazem Hcl 120 mg [...] 12-07-2018 Magnesium 250MG Oral Tablet 12/07/2018 Provider: [place] (No Known Home Meds) (1 source) Start: 06-29-2017 [place] (No Known Home Meds) Active June 29, [...] unspecified] 07-01-2017 Episodic Other aftercare (1 source) 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 [facility] HPon 08-03-2024 History Of Present Illness [...] rectal endoscopic ultrasound for local staging Normal [facility] POCT GLUCOSE METER UNSOLICIT ED RESULTSon 08-03-2024 Glucose [Mass/Vol] 104 mg/dL Normal 70-105 [facility] Comment on above: Order Comment: Waive d Testing in the ED is performed under the ED CLIA certificate #[id number]. Result Comment: acle ment Performed By: #### L [id number] #### [facility] ([facility]) [address] [place] [address] Consulton 08-02-2024 Consult [id number] Paul Velasquez 1950 M Date Provider Department Center 08/02/2024 Duane-DELMA BROWN [facility] SURG Second Fl No family history on file Level of Service:52971 [place] OFFICE/OUTPATIENT NEW MODERATE MDM 45 MINUTES Reason for Visit and Comments: Rectal Cancer [254] Normal [facility] Orders Onlyon 08-02-2024 Orders Only [id number] Paul Velasquez 1950 M Date Provider Department Center 08/02/2024 [id number], HISTORICAL [facility] PAT CT Medical C No family history on file Normal [facility] Orders Onlyon 08-01-2024 Orders Only [id number] Paul Velasquez 1950 M Date Provider Department Center 08/01/2024 KURT LAZAR [facility] No family history on file Normal [facility] SURGICAL PATHOLOGY REFERENCE LAB CONSULTon 08-01-2024 CASE REPORT Normal [facility] Comment on above: Order Comment: Speci men Type: FORMALIN-FIXED PARAFFIN-EMBEDDED TISSUE SPECIMEN Ordering Facility: [facility] Address: [address] [place] [address] Result Comment: Surg ical Pathology Report Case: [id number] Authorizing Provider: Aimee Singh MD Collected: 08/01/2024 03:44 PM Ordering Location: [facility] Received: 08/01/2024 03:44 PM [facility] Pathologist: Masoud Denson MD Specimen: Slide(s), 4 SLIDES [id number] Performed By: #### L [id number] #### [facility] CLIA [id number] [address] [place] [address] [place] CLINICAL HISTORY CONSULT REQUESTED [facility] Comment on above: Order Comment: Speci men Type: FORMALIN-FIXED PARAFFIN-EMBEDDED TISSUE SPECIMEN Ordering Facility: [facility] Address: [address] [place] [address] Performed By: #### L [id number] #### [facility] CLIA [id number] [address] [place] DIAGNOSIS COMMENT Normal [facility] Comment on above: Order Comment: Speci men Type: FORMALIN-FIXED PARAFFIN-EMBEDDED TISSUE SPECIMEN Ordering Facility: [facility] Address: [address] [place] [address] Result Comment: Than k you for allowing [...] do not hesitate to contact us at [phone] with questions or if additional follow-up information becomes available. This case was reviewed in conjunction with the GI pathology fellow, Patt Duarte M.D. Performed By: #### L [id number] #### [facility] CLIA [id number] [address] [place] [address] FINAL DIAGNOSIS Normal [facility] Comment on above: Order Comment: Speci men Type: FORMALIN-FIXED PARAFFIN-EMBEDDED TISSUE SPECIMEN Ordering Facility: [facility] Address: [address] [place], [place] [address] [place] [address] Result Comment: Rect al mass, biopsy (A1): - At least intramucosal adenocarcinoma. - See comment JRG/NK 08/02/24 Performed By: #### L [id number] #### [facility] CLIA [id number] [address] [place] [address] FINAL PERFORMING LAB Normal [facility] Comment on above: Order Comment: Speci men Type: FORMALIN-FIXED PARAFFIN-EMBEDDED TISSUE SPECIMEN Ordering Facility: [facility] Address: [address] [place] [address] [place] [id number] Result Comment: Diag nostic interpretation performed at: [facility], [address] [place] [address] CLIA# [id number] Golf Cart Attendant: Jluis Villafuerte MD Performed By: #### L [id number] #### [facility] CLIA [id number] [address] [place] [address] [place] BASIC METABOLIC PANLon 07-25 Anion gap [Moles/Vol] 8 mmol/L Normal 5-15 [facility] Comment on above: Performed By: #### P INR, 24980-6 #### [facility] ([id number]) [address] [place] [address] 10153 #### CBC, BMP #### [facility] ([id number]) [address] [place] [address] Calcium [Mass/Vol] 9.2 mg/dL Normal 8.5-10.5 [facility] Comment on above: Performed By: #### P INR, 10109-3 #### [facility] ([id number]) [address] [place] [address] 59984 #### CBC, BMP #### [facility] ([id number]) [address] [place] [address] Chloride [Moles/Vol] 103 mmol/L Normal 98-109 [facility] Comment on above: Performed By: #### P INR, 97549-6 #### [facility] ([id number]) [address] [place] [address] 49520 #### CBC, BMP #### [facility] ([id number]) [address] [place] [address] CO2 [Moles/Vol] 26 mmol/L Normal 22-32 [facility] Comment on above: Performed By: #### P INR, 78296-4 #### [facility] ([id number]) [address] [place] [address]25[address] #### CBC, BMP #### [facility] ([id number]) [address] [place] [address] Creatinine [Mass/Vol] 0.91 mg/dL Normal 0.60-1.30 [facility] Comment on above: Result Comment: METH OD TRACEABLE TO IDMS STANDARD Performed By: #### P INR, 78347-9 #### [facility] ([id number]) [address] [place] [address] 89069 #### CBC, BMP #### [facility] ([id number]) [address] [place] [address] GFR/1.73 sq M.predicted among non-blacks MDRD (S/P/Bld) [Vol rate/Area] 87 mL/min/{1.73_m2} Normal >59 [facility] Comment on above: Result Comment: Reported eGFR is based on the CKD-EPI 2020 equation that does not use a race coefficient. Performed By: #### P INR, 10436-7 #### [facility] ([id number]) [address] [place] [address] 63962 #### CBC, BMP #### [facility] ([id number]) [address] [place] [address] Glucose [Mass/Vol] 103 mg/dL High 65-99 [facility] Comment on above: Performed By: #### P INR, 19842-1 #### [facility] ([id number]) [address] [place] [address] 92301 #### CBC, BMP #### [facility] ([id number]) [address] [place] [address] Potassium [Moles/Vol] 5.1 mmol/L High 3.5-5.0 [facility] Comment on above: Performed By: #### P INR, 39370-3 #### [facility] ([id number]) [address] [place] [address] 82979 #### CBC, BMP #### [facility] ([id number]) [address] [place] [address] Sodium [Moles/Vol] 137 mmol/L Normal 134-146 [facility] Comment on above: Performed By: #### P INR, 66912-2 #### [facility] ([id number]) [address] [place] [address] 23281 #### CBC, BMP #### [facility] ([id number]) [address] [place] [address] Urea nitrogen [Mass/Vol] 10 mg/dL Normal 5-27 [facility] Comment on above: Performed By: #### P INR, 83302-7 #### [facility] ([id number]) [address] [place] [address] 57791 #### CBC, BMP #### [facility] ([id number]) [address] [facility] [address] [place] [address] COMPLETE BLOOD COUNTon 07-25 Erythrocyte distribution width (RBC) [Ratio] 16.5 % High 11.5-15.0 [facility] Comment on above: Performed By: #### P INR, 95891-6 #### [facility] ([id number]) [address] [place] [address] 59663 #### CBC, BMP #### [facility] ([id number]) [address] [facility] [address] [address] [place] [address] Hematocrit (Bld) [Volume fraction] 30.0 % Low 39-49 [facility] Comment on above: Performed By: #### P INR, 63404-9 #### [facility] ([id number]) [address] [place] [address] 71905 #### CBC, BMP #### [facility] ([id number]) [address] [place] [address] Hemoglobin (Bld) [Mass/Vol] 10.0 g/dL Low 13.0-17.0 [facility] Comment on above: Performed By: #### P INR, 58507-1 #### [facility] ([id number]) [address] [place] [address] 48014 #### CBC, BMP #### [facility] ([id number]) [address] [place] [address] MCH (RBC) [Entitic mass] 28.2 pg Normal 27-34 [facility] Comment on above: Performed By: #### P INR, 12922-9 #### [facility] ([id number]) [address] [place] [address] 87412 #### CBC, BMP #### [facility] ([id number]) [address] [facility] [address] [place] [address] MCHC (RBC) [Mass/Vol] 33.2 g/dL Normal 32-36 [facility] Comment on above: Performed By: #### P INR, 21309-7 #### [facility] ([id number]) [address] [place] [address] 53836 #### CBC, BMP #### [facility] ([id number]) [address] [place] [address] MCV (RBC) [Entitic vol] 85 fL Normal 80-100 [facility] Comment on above: Performed By: #### P INR, 99290-2 #### [facility] ([id number]) [address] [place] [address] 71641 #### CBC, BMP #### [facility] ([id number]) [address] [place] [address] Platelet mean volume (Bld) [Entitic vol] 8.3 fL Normal 7-12 [facility] Comment on above: Performed By: #### P INR, 57464-2 #### [facility] ([id number]) [address] [place] [address] 01234 #### CBC, BMP #### [facility] ([id number]) [address] [facility] [address] [place] [address] Platelets (Bld) [#/Vol] 296 10*3/uL Normal 150-450 [facility] Comment on above: Performed By: #### P INR, 37518-1 #### [facility] ([id number]) [address] [place] [address] 58134 #### CBC, BMP #### [facility] ([id number]) [address] [facility] [place] [address] RBC COUNT 3.53 X10E12/L Low 4.10-5.70 [facility] Comment on above: Performed By: #### P INR, 93775-7 #### [facility] ([id number]) [address] [place] [address] 11777 #### CBC, BMP #### [facility] ([id number]) [address] [facility], [address] [place] [address] WBC (Bld) [#/Vol] 6.4 10*3/uL Normal 4.0-11.0 [facility] Comment on above: Performed By: #### P INR, 67428-5 #### [facility] ([id number]) [address] [place] [address] 44670 #### CBC, BMP #### [facility] ([id number]) [address] [facility] [address] [address] [place] [address] PROTIME AND INRon 07-25-2024 INR Coag (PPP) [Relative time] 1.1 {INR} Normal 0.8-1.1 [facility] Comment on above: Performed By: #### P INR, 22496-6 #### [facility] ([id number]) [address] [place] [address] 14892 #### CBC, BMP #### [facility] ([id number]) [address] [facility], [address] [place] [address] PT Coag (PPP) [Time] 13.1 s Normal 9.8-13.2 [facility] Comment on above: Result Comment: NEW REFERENCE RANGE Performed By: #### P INR, 31336-1 #### [facility] ([id number]) [address] [place] [address] #### CBC, BMP #### [facility] ([id number]) [address] [facility], [address] [place] [address] aPTT Coag (PPP) [Time]on aPTT Coag (Bld) [Time] 35 s Normal 26-37 [facility] Comment on above: Result Comment: NEW REFERENCE RANGE Performed By: #### P INR, 76301-7 #### [facility] ([id number]) [address] [place] [address] 71092 #### CBC, BMP #### [facility] ([id number]) [address] [place] [address], [address] [place] [address] Office Visiton 06-30-2024 Follow-up visit [id number] Paul Velasquez ld 1950 M Date Provider Department Center 06/30/2024 Noemy-CLEM GALLARDO [facility] GI [facility] No family history on file Level of Service:87247 [place] OFFICE/OUTPATIENT NEW MODERATE MDM 45 MINUTES (GC) Reason for Visit and Comments: 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 Normal [facility] [place] 06-20-2024 L Specimen: [id number] Received: 06/20/24 Status: SOUT Req Num: [id number] Spec Type: Surgical Subm Dr: Ning Wakefield DO Tissues: A Colon Biopsy (RECTAL MASS BX AT 5CM) Procedures: HE/4, Gross/Micro L4 Age/ Patient Sex Location Account Attending Physician Alexei Velasquez 73/M LABELL [id number] Ning Wakefield DO SPEC NUM: [id number] RECD: 06/20/24 STATUS: CECILIA RESea NUM: [id number] ANITA: 06/20/24 [facility] DR: Ning Wakefield DO ENTERED: 06/20/[address] [facility] [address]: Luana Brown SPEC TYPE: Surgical DEPT: [facility] PER[facility] ENTERED BY: [id number] RECV BY: [id number] ORDERED: HE/4, Gross/Micro L4 ORDERED: HE/4, Gross/Micro L4 Supplemental Report Addendum 3 Entered: 08/02/24 Supplemental for findings of consultation report from [facility] -At least intramucosal adenocarcinoma -See comment Addendum Signed (signature on file) Kristian Sánchez MD 08/02/241806 Addendum 2 Entered: 07/28/24 Supplemental for findings of summary of detected somatic alterations, immunotherapy biomarkers and associated treatment options from [place] [address] [facility] Detected alterations/biomarkers associated FDA approved therapies clinical trial availability KRAS T50I Cetuximab, Panitumumab Yes SERGEY [id number] Olaparib, Talazoparib Yes APC E893 None Yes FBXW7 G219fs None Yes Specimen: [id number] Received: 06/20/24 Status: CECILIA Req Num: [id number] Spec Type: Surgical Subm Dr: Ning Wakefield DO Tissues: A Colon Biopsy (RECTAL MASS BX AT 5CM) Procedures: HE/4, Gross/Lily L4 Patient: Alexei Velasquez [id number] (Continued) Specimen: [id number] Received: 06/20/24 (Continued) Supplemental Report (Continued) Signed (signature on file) Mumtaz Amor MD 06/22/24 1845 Specimen: [id number] Received: 06/20/24 Status: CECILIA Garza Num: [id number] Spec Type: Surgical Subm Dr: Ning Wakefield DO Tissues: A Colon Biopsy (RECTAL MASS BX AT 5CM) Procedures: RASHAUNAlverto Hartman/Micro L4 Patient: Alexei Velasquez [id number] (Continued) Specimen: [id number] Received: 06/20/24 (Continued) Supplemental Report (Continued) APC [id number] None Yes TP53 W91fs None Yes Note: -Also see entire report on file for detailed information Addendum Signed (signature on file)Sarah Kristian Sánchez MD 07/28/24 0849 Addendum 1 Entered: 07/28/24 Supplemental for findings of PD-L1 22C3 by immunohistochemistry from [place] [address] [employer] -Combined positive score (CPS): 5 -Please also see [employer] PD-L1 22C3 inspector wire products-established reference ranges in original report Addendum Signed [...] is filtered entirely submitted cassette A1. Specimen: [id number] Received: 06/20/24 Status: CECILIA Kayla Num: [id number] Spec Type: Surgical Subm Dr: Ning Wakefield, Tissues: A Colon Biopsy (RECTAL MASS BX AT 5CM) Procedures: ISABELL, Gross/Micro L4 Patient: Alexei Velasquez [id number] (Continued) Specimen: [id number] Received: 06/20/24 (Continued) Signed (signature on file) Mumtaz Amor MD 06/22/24 1845 Specimen: [id number] Received: 06/20/24-4 Status: CECILIA Garza Num: [id number] Spec Type: Surgical Subm Dr: Ning Wakefield, Tissues: A Colon Biopsy (more content not included)... Normal [facility] Physician [facility] CT CSPINE WO CONon 0 CT [...] WAY Date: 2020-06-04 23:44 Normal [facility] CT HEAD WO CONon 06-05-2020 CT [...] GRAHAM LINN Date: 2020-06-04 22:07 Normal [facility] XR CHEST 1 Von 06-05-2020 XR CHEST [...] GRAHAM LINN Date: 2020-06-04 22:13 Normal [facility] XR PELVIS 1_2 VIEWSon 2019 XR PELVIS 1_2 VIEWS EXAMINATION: XR PELVIS 1_2 VIEWS HISTORY: Altered mental status COMPARISON: No relevant comparison available. FINDINGS: BOWEL GAS PATTERN: No abnormal dilation or deviation. CALCIFICATIONS: None significant. OTHER: No acute fracture. Mild bilateral hip osteoarthropathy. Mild spondylosis of the spine IMPRESSION: No definite acute fracture Electronically authenticated by: GRAHAM LINN Date: 2020-06-04 22:16 Normal [facility] XR SHOULDER LT 2V or >on XR [...] GRAHAM LINN Date: 2020-06-04 22:15 Normal [facility] CARDIAC SHANE ADMITon 020 CK [Catalytic activity/Vol] 84 U/L Normal 55-170 [facility] Comment on above: Performed By: #### C MP, ETH, CMADM #### [facility] [address] [place], [place] [address] Marielena Keller CK.MB [Mass/Vol] 1.08 ng/mL Normal <=2.37 [facility] Comment on above: Performed By: #### C HARINI WEST, CMADM #### [facility] [address] [place], [place] [address] Marielena Arianna INR Coag (Bld) [Relative time] SEE BELOW Normal [facility] Comment on above: Result Comment: <0.0 34 ng/ml NEGATIVE 0.034-0.119 INDETERMINATE 0.120 AMI CUT OFF Performed By: #### C HARINI WEST, CMAKODAK #### [facility] [address] [place] [address] Marielena Arianna KWABENA 58.0 ng/mL Normal <=121.0 [facility] Comment on above: Performed By: #### C HARINI WEST, CMAKODAK #### [facility] [address] [place] [address] Marielena Arianna TROP <0.012 Normal <=0.034 [facility] Comment on above: Performed By: #### C HARINI WEST, CMAKODAK #### [facility] [address] [place] [address] Marielena Arianna CBC AUTO DIFFon 06-04-2020 Basophils (Bld) [#/Vol] 0.1 103/ul Normal 0.0-0.1 [facility] Comment on above: Performed By: #### C BC #### [facility] [address] [place], [place] [address] Marielena Arianna Basophils/100 WBC (Bld) 1.5 % Normal 0.2-2.0 [facility] Comment on above: Performed By: #### C BC #### [facility] [address] [place], [place] [address] Marielena Arianna Eosinophils (Bld) [#/Vol] 0.1 103/ul Normal 0.0-0.7 [facility] Comment on above: Performed By: #### C BC #### [facility] [address] [place], [place] [address] Marielena Arianna Eosinophils/100 WBC (Bld) 2.6 % Normal 0.9-7.0 [facility] Comment on above: Performed By: #### C BC #### [facility] [address] [place], [place] [address] Marielena Arianna Erythrocyte distribution width (RBC) [Ratio] 13.3 % Normal 11.0-15.0 [facility] Comment on above: Performed By: #### C BC #### [facility] [address] [place], [place] [address] Marielena Arianna Hematocrit (Bld) [Volume fraction] 39.5 % Critically low 42.0-54.0 [facility] Comment on above: Performed By: #### C BC #### [facility] [address] [place], [place] [address] Marielena Arianna Hemoglobin (Bld) [Mass/Vol] 13.3 g/dL Critically low 14.0-18.0 [facility] Comment on above: Performed By: #### C BC #### [facility] [address] [place] [address] Marielena Arianna IG # 0.02 10e3/ul Normal 0.00-0.03 [facility] Comment on above: Performed By: #### C BC #### [facility] [address] [place], [place] [address] Marielena Arianna IG % 0.4 % Normal 0.0-0.5 [facility] Comment on above: Performed By: #### C BC #### [facility] [address] [place], [place] [address] Marielena Arianna Lymphocytes (Bld) [#/Vol] 1.7 103/ul Normal 1.2-3.8 [facility] Comment on above: Performed By: #### C BC #### [facility] [address] [address] [place], [place] [id number] Marielena Arianna Lymphocytes/100 WBC (Bld) 38.0 % Normal 20.5-60.0 The [facility] Comment on above: Performed By: #### C BC #### [facility] Laboratory [address] [place], [place] [phone] Marielena Arianna MANUAL DIFF REQ NO Normal [facility] Comment on above: Performed By: #### C BC #### [facility] [address] [place], [place] [phone] Marielena Arianna MCH (RBC) [Entitic mass] 32.1 pg Normal 25.9-34.0 The [facility] Comment on above: Performed By: #### C BC #### [facility] Laboratory [address] [place], [place] [address] Marielena Keller MCHC (RBC) [Mass/Vol] 33.7 g/dL Normal 29.9-35.2 [facility] Comment on above: Performed By: #### C BC #### [facility] [address] [id number] Marielena Keller MCV (RBC) [Entitic vol] 95.4 fL Critically high 80.0-94.0 The [facility] Comment on above: Performed By: #### C BC #### [facility] [address] [place], [place] [phone] Marielena Arianna Monocytes (Bld) [#/Vol] 0.6 103/ul Normal 0.3-0.8 The [facility] Comment on above: Performed By: #### C BC #### [facility] [address] [place], [place] [phone] Marielena Keller Monocytes/100 WBC (Bld) 13.7 % Critically high 1.7-12.0 The [facility] Comment on above: Performed By: #### C BC #### [facility] [address] [place], [place] [phone] Marielena Keller Neutrophils (Bld) [#/Vol] 2.0 103/ul Normal 1.4-6.5 The [facility] Comment on above: Performed By: #### C BC #### [facility] [address] [place], [place] [phone] Marielena Keller Neutrophils/100 WBC (Bld) 43.8 % Normal 43.0-75.0 The [facility] Comment on above: Performed By: #### C BC #### [facility] [address] [place], [place] [phone] Marielenaemma Keller Platelet mean volume (Bld) [Entitic vol] 10.4 fL Normal 9.5-13.5 The [facility] Comment on above: Performed By: #### C BC #### [facility] [address] [place], [place] [address] Marielenaemma Keller Platelets (Bld) [#/Vol] 141 103/ul Critically low 150-450 [facility] Comment on above: Performed By: #### C BC #### [facility] [address] [place], [place] [phone] Marielenaemma Zafaren RBC (Bld) [#/Vol] 4.14 106/ul Critically low 4.70-6.10 Th e [facility] Comment on above: Performed By: #### C BC #### [facility] [address] [place], [place] [phone] Marielenaemma Zafaren WBC (Bld) [#/Vol] 4.5 103/ul Normal 4.0-11.0 [facility] Comment on above: Performed By: #### C BC #### [facility] [address] [place], [place] [phone] Marielena Arianna ETHANOL (BLD ALC)on 06-04-20 20 Ethanol [Mass/Vol] NOTE: 80 mg/dl is the legal limit for a blood alcohol level Normal [facility] Comment on above: Performed By: #### C HARINI WEST, CMAKODAK #### [facility] [address] [place] [address] Marielena Arianna Ethanol [Mass/Vol] 347 mg/dL Normal [facility] Comment on above: Performed By: #### C HARINI WEST, CMADM #### [facility] [address] [place], [place] [phone] Marielenaemma Zafaren PROF 14(COMP METB)on 020 Albumin [Mass/Vol] 3.5 g/dL Normal 3.5-5.0 [facility] Comment on above: Performed By: #### C HARINI WEST, CMADM #### [facility] [address] [place], [place] [phone] Marielena Arianna Albumin/Globulin [Mass ratio] 0.9 {ratio} Normal [facility] Comment on above: Performed By: #### C JENNA ETH, CMADM #### [facility] [address] [place], [place] [phone] Marielena Arianna ALP [Catalytic activity/Vol] 54 U/L Normal 38-126 [facility] Comment on above: Performed By: #### C HARINI WEST CMADM #### [facility] [address] [address] Marielena Arianna ALT [Catalytic activity/Vol] 109 U/L Critically high 21-72 [facility] Comment on above: Performed By: #### C HARINI WEST CMADM #### [facility] [address] [place] [address] Marielena Arianna Anion gap [Moles/Vol] 14.5 mmol/L Normal [facility] Comment on above: Performed By: #### C HARINI WEST CMADM #### [facility] [address] [place] [address] Marielena Arianna AST [Catalytic activity/Vol] 128 U/L Critically high 17-59 [facility] Comment on above: Performed By: #### C HARINI WEST CMADM #### [facility] [address] [place] [address] Marielena Arianna Bilirubin Ql (U) 0.3 mg/dL Normal 0.2-1.3 [facility] Comment on above: Performed By: #### C HARINI WEST CMADM #### [facility] [address] [place] [address] Marielena Arianna Calcium [Mass/Vol] 8.5 mg/dL Normal 8.4-10.2 [facility] Comment on above: Performed By: #### C HARINI WEST CMADM #### [facility] [address] [place] [address] Marielena Arianna Chloride [Moles/Vol] 102 mmol/L Normal 98-107 [facility] Comment on above: Performed By: #### C HARINI WEST CMADM #### [facility] [address] [place] [address] Marielena Arianna CO2 [Moles/Vol] 25.2 mmol/L Normal 22.0-30.0 The [facility] Comment on above: Performed By: #### C HARINI WEST CMADM #### [facility] [address] [address] Amrielena Arianna Creatinine [Mass/Vol] 0.87 mg/dL Normal 0.66-1.25 [facility] Comment on above: Performed By: #### C HARINI WEST CMADM #### [facility] [address] [address] Marielena Arianna EGFR-AF FAROESE >60 Normal >=60 The [facility] Comment on above: Performed By: #### C HARINI WEST CMADM #### [facility] [address] [address] Marielena Arianna EGFR-NON AF FAROESE >60 Normal >=60 [facility] Comment on above: Performed By: #### C HARINI WEST CMADM #### [facility] [address] [place] [address] Marielena Arianna Globulin (S) [Mass/Vol] 3.7 g/dL Normal [facility] Comment on above: Performed By: #### C HARINI WEST CMADM #### [facility] [address] [place] [address] Marielena Arianna Glucose [Mass/Vol] 107 mg/dL Critically high 74-106 [facility] Comment on above: Performed By: #### C HARINI WEST CMADM #### [facility] [address] [place] [address] Marielena Arianna Potassium [Moles/Vol] 3.7 mmol/L Normal 3.4-5.0 [facility] Comment on above: Performed By: #### C HARINI WEST CMADM #### [facility] [address] [place] [address] Marielena Arianna Protein [Mass/Vol] 7.2 g/dL Normal 6.1-8.2 [facility] Comment on above: Performed By: #### C HARINI WEST CMADM #### [facility] [address] [place] [address] Marielena Arianna Sodium [Moles/Vol] 138 mmol/L Normal 137-145 [facility] Comment on above: Performed By: #### C HARINI WEST CMADM #### [facility] [address] [place], [place] [address] Marielena Arianna Urea nitrogen [Mass/Vol] 11.0 mg/dL Normal 9.0-20.0 [facility] Comment on above: Performed By: #### C HARINI WEST, JESSICA #### [facility] [address] [place], [place] [address] Marielena Arianna Urea nitrogen/Creatini ne [Mass ratio] 12.6 mg/mg Normal [facility] Comment on above: Performed By: #### C HARINI WEST, JESSICA #### [facility] [address] [place], [place] [address] Marielena Zafaren Vital Signs Date Time Vital Sign Value Performing Clinician Facility 08-15-2024 13:31-0500 Blood Pressure Location Pranay LENNONVU [employer] [facility] 08-15-2024 13:31-0500 Diastolic blood pressure 74 mm[Hg] Pranay ADAMSON [facility] 08-15-2024 13:31-0500 Heart rate 72 /min Pranay JUAN DIEGO [facility] 08-15-2024 13:31-0500 Respiratory rate 16 /min Pranay ADAMSON [facility] 08-15-2024 13:31-0500 Systolic blood pressure 126 mm[Hg] Pranay ADAMSON [facility] 07-26-2024 13:02-0400 Body height 170.18 cm [employer] [facility] Work Phone: [facility] 07-26-2024 13:02-0400 Body mass index (BMI) [Ratio] 30.2 kg/m2 [employer] Work Phone: [facility] 07-26-2024 13:02-0400 Body weight 87.54 kg [employer] [facility] Work Phone: [facility] 07-26-2024 13:02-0400 Diastolic blood pressure 98 mm[Hg] [employer] [facility] Work Phone: [facility] 07-26-2024 13:02-0400 Respiratory rate 16 /min [employer] [facility] Work Phone: [facility] 07-26-2024 13:02-0400 SaO2% (BldA) [Mass fraction] 98 % [employer] [facility] Work Phone: [facility] 07-26-2024 13:02-0400 Systolic blood pressure 169 mm[Hg] [employer] [facility] Work Phone: [facility] 07-25-2024 14:27-0400 Body height 177.8 cm [facility] 07-25-2024 14:27-0400 Body mass index (BMI) [Ratio] 27.98 kg/m2 [facility] 07-25-2024 14:27-0400 Body weight 88.45 kg [facility] 06-28-2024 08:14-0400 Body height 177.8 cm [employer] Work Phone: [facility] [employer] 06-28-2024 08:14-0400 Body mass index (BMI) [Ratio] 27.55 kg/m2 [employer] Phone: [facility] [employer] 06-28-2024 08:14-0400 Body weight 87.09 kg [employer] Work Phone: [facility] [employer] 06-28-2024 08:14-0400 Diastolic blood pressure 84 mm[Hg] [employer] Work Phone: [facility] [employer] 06-28-2024 08:14-0400 Heart rate 85 /min [employer] Work Phone: [facility] [employer] 06-28-2024 08:14-0400 Respiratory rate 18 /min [employer] Work Phone: [facility] [employer] 06-28-2024 08:14-0400 SaO2% (BldA) [Mass fraction] 98 % Ning Wakefield DO Work Phone: [facility] 06-28-2024 08:14-0400 Systolic blood pressure 138 mm[Hg] Ning Wakefield DO Work Phone: [facility] 12-07-2018 16:37-0400 Body height 177.8 cm Chelsy Rosales CNP Work Phone: [facility] Work Phone: 12-07-2018 16:37-0400 Body mass index (BMI) [Ratio] 25.9 kg/m2 Chelsy Rosales CNP Work Phone: [facility] Work Phone: 12-07-2018 16:37-0400 Body surface area Derived from formula 2 m2 Chelsy Rosales CNP Work Phone: [facility] Work Phone: 12-07-2018 16:37-0400 Body temperature 96.6 [degF] Chelsy Rosales CNP Work Phone: [facility] Work Phone: 12-07-2018 16:37-0400 Body weight 81.76 kg Chelsy Rosales CNP Work Phone: [facility] Work Phone: 12-07-2018 16:37-0400 Diastolic blood pressure 80 mm[Hg] Chelsy Rosales CNP Work Phone: [facility] Work Phone: 12-07-2018 16:37-0400 Heart rate 54 /min Chelsy Rosales CNP Work Phone: [facility] Work Phone: 12-07-2018 16:37-0400 SaO2% (BldA) [Mass fraction] 98 % Chelsy Rosales CNP Work Phone: [facility] Work Phone: 12-07-2018 16:37-0400 Systolic blood pressure 130 mm[Hg] Chelsy Rosales GAS SUBSTATION OPERATOR Work Phone: [facility] Work Phone: Encounters Encounter Date Encounter Type Care Provider Facility Start: 08-29-2024 ambulatory [facility] Fac ility:[facility] Start: 08-17-2024 Registered [facility] Work Phone: Start: 08-17-2024 End: 08-17-2024 ambulatory [facility] Work Phone: [facility] Work Phone: Start: 08-17-2024 End: 08-17-2024 Patient encounter procedure [facility] Work Phone: Start: 08-15-2024 End: 08-15-2024 ambulatory AIMEE MARIA GUADALUPE Facility: [facility] Start: 08-15-2024 End: 08-15-2024 Patient encounter procedure Pranay ADAMSON [facility] Start: 08-10-2024 ambulatory AIMEE MARIA GUADALUPE Facility : [facility] Start: 08-03-2024 End: 08-03-2024 ambulatory AIMEE MARIA GUADALUPE [facility] Start: 08-02-2024 End: 08-02-2024 ambulatory DELMA KEVIN [facility] Start: 07-26-2024 Registered [facility] Work Phone: Start: 07-26-2024 End: 07-26-2024 ambulatory [facility] Work Phone: [facility] Work Phone: Start: 07-26-2024 End: 07-26-2024 Patient encounter procedure [facility] Work Phone: [facility] Work Phone: Start: 07-25-2024 Encounter for other preprocedural examination RAFFI KHOURYARI [facility] Start: 07-25-2024 End: 07-25-2024 Patient encounter procedure [facility] Pre-Admission Testing 2 [facility] - Pre Admit Start: 07-25-2024 End: 07-25-2024 ambulatory CAMMIE KRUSE [facility] Start: 07-25-2024 End: 07-25-2024 ambulatory GRAHAM GLEZ [facility] Start: 06-30-2024 End: 06-30-2024 ambulatory NING NICOL [facility] Start: 06-28-2024 End: 06-28-2024 Bamboo flowsheet Ning Wkaefield DO Work Phone: [facility] Start: 06-28-2024 End: 06-28-2024 Bamboo flowsheet Ning Wakefield DO Work Phone: [facility] Start: 06-28-2024 End: 06-28-2024 Postop follow up visit related to original px Ning Wakefield DO Work Phone: [facility] Comment on above: 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) Start: 06-28-2024 End: 06-28-2024 ambulatory NING WAKEFIELD Not Available Start: 06-20-2024 End: 06-20-2024 ambulatory Ning Nicol [facility] Work Phone: Start: 06-20-2024 End: 06-20-2024 Departed Referred DO Ning Wakefield Work Phone: [facility] Start: 06-05-2024 End: 06-05-2024 ambulatory NING NICOL Not Available Start: 06-05-2020 End: 06-05-2020 Patient encounter procedure DOCTOR MISC Facility: Start: 04-25-2019 End: 04-26-2019 Emergency department patient visit KAMALJIT SILVA [facility] Start: 12-07-2018 End: 12-07-2018 FQHC visit new patient Wendi Katz GAS SUBSTATION OPERATOR Work Phone: [facility] Work Phone: Procedures Date Procedure Procedure Detail Performing Clinician Start: 01-07-2022 Adult depression scr eening assessment [facility] 2 Start: 12-07-2018 HYPERTENSION (SYSTEMIC) Chelsy Rosales GAS SUBSTATION OPERATOR Work Phone: Start: 12-07-2018 Operative procedure on ankle Chelsy Rosales GAS SUBSTATION OPERATOR Work Phone: Start: 12-07-2018 Operative procedure on hand Chelsy Rosales GAS SUBSTATION OPERATOR Work Phone: Start: 12-07-2018 Surgical procedure Cynt alina Rosales GAS SUBSTATION OPERATOR Work Phone: Angiography Pranay NILL Closed fracture of a nkle (disorder) Pranay NILL Closed fracture of l eft wrist (disorder) Pranay NILL Colonoscopy Pranay NILL Colonoscopy Pranay NILL Extraction of cataract Rex el NILL Plan of Treatment Date Care Activity Detail Author Start: 06-04-2030 DTaP,Tdap and Td Vaccines (4 - Td or Tdap) DTaP,Tdap and Td Vaccines (4 - Td or Tdap) [facility] Start: 07-25-2025 Adult BMI Screening Adult BMI Screen ing [facility] Start: 07-25-2025 Tobacco Screening Tobacco Screening [facility] Start: 07-28-2024 End: 07-28-2024 Admission to same day surgery center 07/28/2024 9:00 AM EDT - 07/28/2024 10:00 AM EDT Surgery [facility] - Surgery [address] [place] [id number] Cammie Kruse MD [address] [facility] [address] [place] [address] INSERTION PORT A CATH-MEDI PORT FOR CHEMO [01783 (CPT )] [facility] Comment on above: INSERTION PORT A CAT H-MEDI PORT FOR CHEMO [71495 (CPT )] Start: 07-28-2024 End: 07-28-2024 Anesthesia consultation 07/28/2024 9:00 AM EDT Anesthesia Event [facility] [address] [facility] [place] [id number] Ruperto Ponce, DO [address] [facility] [place] [address] [facility] Start: 07-28-2024 End: 07-28-2024 Insj tunneled ctr vad w/subq port age 3 yr/> INSERTION PORT A CATH Malignant neoplasm of rectum (CMS-HCC) Encounter for therapeutic drug monitoring 07/28/2024 9:00 AM EDT [facility] Start: 07-28-2024 Subsequent hospital visit by physician 07/28/2024 9:00 AM EDT Hospital Encounter [facility] [address] [place] [id number] Cammie Kruse MD [address], [address] [address] [facility] Start: 06-28-2024 End: 06-28-2025 Creatine Creatine Lab Routine Adenocarcinoma of rectum (HCC) (CMS/HCC) Expected: 06/28/2024 (Approximate), Expires: 06/28/2025 [facility] Comment on above: Expected: 06/28/2024 (Approximate), Expires: 06/28/2025 Start: 06-28-2024 End: 06-28-2025 CT CHEST ABDOMEN PELVIS W IV CONTRAST CT CHEST ABDOMEN PELVIS W IV CONTRAST Imaging Routine Adenocarcinoma of rectum (HCC) (CMS/HCC) Expected: 06/28/2024, Expires: 06/28/2025 [employer] [employer] Work Phone: Comment on above: Expected: 06/28/2024 , Expires: 06/28/2025 Start: 06-28-2024 End: 06-28-2025 MR Pelvis WO and W contrast IV MR pelvis w and wo contrast Imaging Routine Adenocarcinoma of rectum (HCC) (CMS/HCC) Expected: 06/28/2024, Expires: 06/28/2025 [employer] Comment on above: Expected: 06/28/2024 , Expires: 06/28/2025 Start: 06-28-2024 End: 06-28-2024 Patient encounter procedure 06/28/2024 8:15 AM EDT Office Visit [facility] [address] [place] [address] Ning Wakefield DO [address] [place] [address] Arrived [facility] Comment on above: Arrived Start: 05-28-2024 COVID-19 Vaccine ( season) COVID-19 Vaccine ( season) [facility] Start: 05-28-2024 Influenza vaccination Influenza Vacc ine [facility] Start: 01-07-2023 Depression Screening Depression Scre ening [facility] Start: 2013 Fall Risk Screening Fall Risk Screen ing [facility] Start: 1967 Administration of varicella zoster vaccine Zoster (Shingles) Vaccine (1 of 2) [facility] Start: 1950 Tobacco Counseling Tobacco Counselin g [facility] Immunizations Immunization Date Immunization Notes Care Provider Fa cility 06-27-2021 SARS-CoV-2 (COVID-19 ) mRNA BNT-162b2 ghassan ADAMSON [facility] [place] Comment on above: Result Comment: 2023: [id number] 06-27-2021 influenza virus vaccine, unspecified formulation [facility] 2 [facility] 01-03-2021 SARS-CoV-2 (COVID-19 ) mRNA BNT-162b2 ghassan ADAMSON [facility] 12-13-2020 SARS-CoV-2 (COVID-19 ) mRNA BNT-162b2 vax Pranay ADAMSON [facility] 04-16-2018 tetanus toxoid, redu mary jo diphtheria toxoid, and acellular pertussis vaccine, adsorbed [facility] 2 [facility] 07-08-2017 influenza, high dose seasonal, preservative-free DO Ning Wakefield Work Phone: [facility] 06-07-2017 tetanus toxoid, redu mary jo diphtheria toxoid, and acellular pertussis vaccine, adsorbed DO [facility] Work Phone: [facility] Payers Date Payer Category Payer Self-pay [id number] 2022 Medicare [employer] [id number] 2022-Present [facility] [address] [place] [address] [id number] 2022 Medicare HMO [employer] [id number] 2022 Medicare [id number] 1959 Unknown [id number] 1948 Unknown [id number] 1948 Unknown [id number] 1948 Unknown [id number] 1948 Unknown [id number] [id number] 1948 Unknown [id number] [id number] 1948 Unknown [id number] [id number] 1948 Unknown [id number] [id number] 1948 Unknown [id number] [id number] 1948 Unknown [id number] Medicare 1 - Medicare [facility] CGS PPS 2V [id number] Medicare Medicare [id number] Unknown [facility] [id number] Unknown [id number] Unknown [id number] Social History Date Type Detail Facility Assertion Finding of alcoh ol intake (finding) [facility] Work Phone: Assertion Gender identity finding (finding) [facility] Work Phone: Assertion Heterosexual (finding) [facility] Work Phone: [facility] Assertion Finding of sexua l orientation (finding) [facility] Work Phone: Tobacco smoking status Unknown if ever smoked [facility] Start: 08-11-2017 End: 08-11-2017 Tobacco smoking status NHIS Never smoked tobacco (finding) [facility] Start: 1950 Sex Assigned At Male [facility] Start: 1950 Sex assigned at Not on file [facility] Start: 11-07-2020 End: 07-25-2024 Gender identity Not on file [facility] Start: 12-23-2022 Tobacco use and exposure User of smokeless tobacco [facility] History of tobacco use Chews Tobacco [facility] Start: 07-25-2024 Alcoholic beverage intake Current drinker of alcohol (finding) [facility] Start: 11-07-2020 End: 07-25-2024 Alcoholic beverage intake [facility] Start: 07-25-2024 Alcohol Comment beer daily, 2- 4 cans per day and some occassional shots of whiskey [facility] Start: 11-02-2015 End: 08-17-2024 Sex Male (finding) [facility] NEGATED: Highlighted row Assertion Exposure to pollution (event) [facility] Work Phone: NEGATED: Highlighted row Assertion Tobacco user (finding) [facility] Work Phone: NEGATED: Highlighted row Assertion Finding relating to drug misuse behavior (finding) [facility] Work Phone: Medical Equipment Procedure [...] 06-25-2017 Lens Iol Ultrase rt 17.0d - [id number] - [id number] Start: 06-29-2023 Lens Iol Ultrase rt 18.5d - [id number] - [id number] Start: 07-13-2023 Goals Date Patient Goal Desired Activity /State Personal health goal Comment on above: Formatting of this n ote might be different from the original. Evaluation of progress towards goal: Safe transition from hospital to home. Functional Status Date Assessment Result Facility 08-15-2024 Functional Status N/A [facility] [place] Clinical Notes 06-28-2024 to 08-15-2024 Note Date [...] h/o atrial fibrillation, on Eliquis, htn, hypercholesterolemia, [place], recently diagnosed with advanced rectal cancer, referred for [id number]-p-nxhg for chemotherapy; no h/o previous port or [...] rectum (C20: Malignant neoplasm of rectum) plan sstxzo-o-[id number] insertion under general anesthesia, informed consent obtained. [...] SARS-CoV-2 (COVID-19) mRNA BNT-162b2 vax 12/13/2020 Recorded [facility] Comment on above: Result Comment: Elec tronically Signed By: JUAN DIEGO MINAYA, Pranay Lopez\ross\Date and Time Signed: 08/15/24 14:12 EST 08-03-2024 Note Patient: Alexei colindres Procedure Summary Date: 08/03/24 Room / Location: [facility] [place] [facility] Anesthesia Start: 1215 Anesthesia Stop: 1303 [...] per anesthesia protocol. No notable events documented. [facility] 08-03-2024 Note Patient: Alexei colindres Procedure Summary Date: 08/03/24 Room / Location: [facility] Anesthesia Start: 1215 Anesthesia Stop: Procedure: ENDOSCOPIC ULTRASOUND (LOWER) Diagnosis: Rectal mass Scheduled Providers: Clem Gallardo MD; Fredrick Domínguez MD; LUISA Martin Responsible Provider: Fredrick Domínguez MD Anesthesia Type: MAC ASA Status: 3 Anesthesia Post Transport Note Transport to: [facility] PACU O2 Route: room air Patient Monitor: direct observation Transport: uneventful Patient condition is: stable [facility] 08-03-2024 Note Patient: Alexei colindres Procedure Information Date/Time: 08/03/24 1230 Scheduled providers: Clem Gallardo MD; Fredrick Domínguez MD; LUISA Martin Procedure: ENDOSCOPIC ULTRASOUND (LOWER) Location: [facility] Endoscopy Relevant Problems Anesthesia (within normal limits) [...] Plan discussed with CAA. Additional Equipment Requests [facility] 08-02-2024 Note Subjective Patient ID: Alexei Velasquez [...] No follow-ups on file. Elkin Shepard, MS3 [facility] 07-26-2024 Evaluation note Diagnosis Onset Date Resolution Adenocarcinoma of rectum acute July 26, 2024 12:38pm Adenocarcinoma of rectum acute August 17, 2024 9:17am [facility] Work Phone: [phone] 243-798510-29-2024 Instructions* Patient Instructions* Casi Centeno RN - 07/25/2024 2:15 PM EDT Preoperative Education Checklist- General Surgery date: 07/28/24 Surgery time: 0900 a.m. Arrival time: 0700 a.m. 1. Bring a photo ID and your insurance card with you the day of surgery. You will check in at the main lobby of the [facility]- registration desk is straight ahead as soon as you walk in. Tell them you are here for surgery. 2. If you have a Living Will/Durable Power of Data Analyst Report Writer for Health Care that is not on [...] please call the Preadmission Testing office at [phone], Mon.-Fri. 7 a.m.-3 p.m. Leave a voicemail [...] appointment with your doctor. documented in this encounterSelect Medical [facility], AvonPatientFocus Havenwyck [id number] Miscellaneous Notes* Perioperative Nursing Note - Casi Centeno RN - 07/25/2024 2:15 PM EDT Preoperative Education Checklist- General Surgery date: 07/28/24 Surgery time: 0900 a.m. Arrival time: 0700 a.m. 1. Bring a photo ID and your insurance card with you the day of surgery. You will check in at the main lobby of the [facility]- registration desk is straight ahead as soon as you walk in. Tell them you are here for surgery. 2. If you have a Living Will/Durable Power of Data Analyst Report Writer for Health Care that is not on [...] please call the Preadmission Testing office at [phone], Mon.-Fri. 7 a.m.-3 p.m. Leave a voicemail [...] reviewed. Patient verbalized understanding. [facility] Nurse Note* Perioperative Nursing Note - Casi Centeno RN - 07/25/2024 2:15 PM EDT Preoperative Education Checklist- General Surgery date: 07/28/24 Surgery time: 0900 a.m. Arrival time: 0700 a.m. 1. Bring a photo ID and your insurance card with you the day of surgery. You will check in at the main lobby of the [facility]- registration desk is straight ahead as soon as you walk in. Tell them you are here for surgery. 2. If you have a Living Will/Durable Power of Data Analyst Report Writer for Health Care that is not on [...] please call the Preadmission Testing office at [phone], Mon.-Fri. 7 a.m.-3 p.m. Leave a voicemail [...] to the follow-up appointment with your doctor. [facility] Nurse Note* Perioperative Nursing Note - Casi Centeno RN - 07/25/2024 2:15 PM EDT Hibiclens and surgical instructions reviewed. Patient verbalized understanding. [facility] Note Attestation signed by Clem Gallardo MD at 07/03/2024 9:36 AM I personally saw and examined the patient on the same date of service as resident/fellow . I discussed the findings and therapeutic plan with the resident/fellow . I agree with the documentation. [facility] Gastroenterology New Patient Visit - History [...] PROT B12/Folate/Iron studies: No results found for: [id number] , FOLATE , IRON , TIBC , UIBC , IRONSAT , FERRITIN Viral Hepatitis No results found for: HEPAIGM , HAV , HEPBSAG , HEPBSAB , HEPBEAB , HEPBIGM , HEPBCAB , HEPBCOREAB , HBVNAT , HCVSCR , HEPCAB , HCVNAT , HCVPCR , HCVTMA Liver Workup No results found for: JENNIFER , SMOOTHMUSCAB , CERULOPLSM , [id number] , TTGA , IGA , TSH , [...] No complaints at t (more content not included)...[facility]10-02-2024 History of Present illness Narrative* Ning Wakefield, - 06/28/2024 8:15 AM EDT Images from [...] Tobacco Use: High Risk (07/13/2023) Received from Fullscreen Patient History Smoking Tobacco Use: Never Smokeless Tobacco Use: Current Passive Exposure: Not on file Alcohol Use: Not on file Depression: Not at risk (01/07/2022) Received from Fullscreen PHQ-2 Total Score: 2 Physical Activity: Not on file REVIEW OF SYMPTOMS: Review of Systems All other systems reviewed and are negative. 10 systems were reviewed. Positives noted above. Remainder are negative per [facility] guidelines OBJECTIVE: Visit Vitals BP [...] Information Document Information Other: Other PATHOLOGY REPORT [facility] 06/20/2024 00:00 Attached To: Alexei Velasquez Source [...] you, Essence Wakefield DO [facility] HealthcareEvaluation + Plan note No data available for this section [facility] Evaluation note Assessments not supported for this document type No Assessments RecordedHealth [facility] Work Phone: Evaluation noteNo assessment information available [facility] Work Phone: Evaluation note* Diagnosis Adenocarcinoma of rectum (HCC) (CMS/HCC)- Primary documented in this encounter [facility]* Diagnosis Onset Date Resolution Status Adenocarcinoma of rectum acu te [facility] Work Phone: History of Present illness Narrative History of Present Illness not supported for this document type No History of Present Illness Record[facility] Work Phone: Hospital Discharge instructions No data available for this section [facility] Instructions Instructions not supported for this document type No Instructions Record[facility] Work Phone: patient problem outcome Narrative Includes: Evaluations & Outcomes for active Goals No Outcomes RecordedHealth [facility] Work Phone: progress note No data available for this section [facility] Reason for referral (narrative)* Consultation (Routine) - Pending Review Specialty Diagnoses / Procedures Referred By Contpatricia t Referred To Contact Oncology Diagnoses Adenocarcinoma of rectum (HCC) (CMS/HCC) Procedures [place] OFFICE/OUTPATIENT NEW HIGH MDM 60 MINUTES Ning Wakefield DO [address] [facility] [address] [place] [phone] Aimee Singh MD [address] [place] [address] Referral ID Status Reason Start Date Expiration Date Visits Requested Visits Authorized [id number] Pending Review Specialty Services Required 06/28/2024 12/25/2024 1 1 * Imaging (Routine) - Pending Review Specialty Diagnoses / Procedures Referred By Contac t Referred To Contact Radiology Diagnoses Adenocarcinoma of rectum (HCC) (CMS/HCC) Procedures MR pelvis w and wo contrast Nicol, Ning, DO [address] [facility] [address] [place] [address] [facility] [address] [place] [address] Referral ID Status Reason Start Date Expiration Date V isits Requested Visits Authorized [id number] Pending Review 06/28/2024 12/25/2024 1 1 * Imaging (Routine) - Pending Review Specialty Diagnoses / Procedures Referred By Contac t Referred To Contact Radiology Diagnoses Adenocarcinoma of rectum (HCC) (CMS/HCC) Procedures CT CHEST ABDOMEN PELVIS W IV CONTRAST Nicol Ning, DO [address] [place] [address] [place] [address] Referral ID Status Reason Start Date Expiration Date V isits Requested Visits Authorized [id number] Pending Review 06/28/2024 12/25/2024 1 1 [facility] HealthcareReview of systems Narrative - Reported Review of Systems not supported for this document type No Review of Systems RecordedHealth [facility] Work Phone: Summary Purpose Family History No [...] CREATED AUTHOR AUTHOR'S ORGANIZ ATION 06/12/2020 [facility] DATE CREATED AUTHOR AUTHOR'S ORGANIZ ATION 06/29/2024 [facility] DATE CREATED AUTHOR AUTHOR'S ORGANIZ ATION 07/27/2024 [facility] DATE CREATED AUTHOR AUTHOR'S ORGANIZ ATION 08/04/2024 [facility] DATE CREATED AUTHOR AUTHOR'S ORGANIZ ATION 08/12/2024 [facility] DATE CREATED AUTHOR AUTHOR'S ORGANIZ ATION 08/16/2024 [facility] DATE CREATED AUTHOR AUTHOR'S ORGANIZ ATION 08/30/2024 [facility] Care Teams (unrecognized sec tion and content) Team Status: Inactive Member Role Status Dates Ning Wakefield DO Attending Provider Active Star t: June 20, 2024 End: June 20, 2024 Airline Attendant Relationship Specialty Start Date End Date Shabnam Villarreal MD [address] [place] [place] [address] PCP - General Behavioral Health 06/05/24 Airline Attendant Relationship Specialty Start Date End Date Shabnam Villarreal MD [address] [place] [address] PCP - [facility] 06/05/24 Team Status: Active Member Role Status Dates [facility] Primary Care Provider Active Team Status: Inactive Member Role Status Dates Angelina Tomlinson MD Attending Provider Active Start: July 26, 2024 End: July 26, 2024 [facility] Primary Care Provider Active Start: July 26, 2024 End: July 26, 2024 Aimee Singh MD Referring Provider Active St art: July 26, 2024 End: July 26, 2024 Team Status: Active Member Role Status Dates [facility] Primary Care Provider Active Start: July 26, 2024 Angelina Tomlinson MD Attending Provider Active Start: July 26, 2024 Aimee Singh MD Referring Provider Active St art: July 26, 2024 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 [facility]. provides no warranty or guarantee of the accuracy or completeness of information in this document.
[2024-08-30] MEDS: 0.9 % SODIUM CHLORIDE 500 ML 50 ML IV ×3 (10:55→14:22)
[2024-08-30] MEDS: CEFAZOLIN SODIUM/DEXTROSE,ISO 2 GM/50 ML PIGGYBACK IV (13:30)
[2024-08-30] MEDS: HEPARIN SODIUM (PORCINE) PF LOCK FLUSH 500 UNIT/5 ML SYRINGE 1000 UNIT INJ (14:25)
[2024-08-30] MEDS: BUPIVACAINE HCL 0.5% PF 50 MG/10 ML VIAL INJ (14:31)
--- NOTE | 2024-08-30 15:20 | XR_ITS ---
The [address] [address] Patient Name: ROLDAN COTE MRN: [id number] date: 1950 Sex: M [facility] Accession/Order Number: [id number] Exam Date: 08/30/2024 15:15 Report Date: 08/30/2024 15:39 At the request of: JOHN ADAMSON Procedure: XR chest 1V PORTABLE CHEST X-RAY. INDICATION: Port placement. COMPARISON: None. TECHNIQUE: Single AP portable chest radiograph. FINDINGS: TUBES AND LINES: Right chest port likely terminates in the cavoatrial junction. LUNGS: There are diffuse bilateral interstitial opacities. PLEURA: No effusions or pneumothorax. HEART AND MEDIASTINUM: Cardiomegaly. OSSEOUS STRUCTURES: No acute abnormality. XR/XR chest 1V IMPRESSION: 1. Right chest port likely terminates in the cavoatrial junction. No pneumothorax. 2. Bilateral interstitial opacities which may represent interstitial edema. Electronically authenticated by: ASMITA ROLDAN Date: 08/30/2024 15:39
== END 2024-08-30 16:45 | disposition home or self-care (01) ==
PROVIDERS: Visit Provider Surgery
PROC: (CPT 36561; principal; 2024-08-30 11:45)
DX: C20 Malignant neoplasm of rectum (principal); I48.91 Unspecified atrial fibrillation; Z79.01 Long term (current) use of anticoagulants; I10 Essential (primary) hypertension; E78.00 Pure hypercholesterolemia, unspecified; I25.2 Old myocardial infarction; I87.8 Other specified disorders of veins
CPT/HCPCS: 36561; 36415; 71045; 76000; 94667; C1788; J0665; J0690; J1642; J2250; J2405; J2704; J3010

== ENCOUNTER 2024-09-26 07:27 | Outpatient (RCR) | payer MEDICARE, SELFPAY ==
--- OUTSIDE RECORDS SUMMARY | 2024-08-28 11:13 | XMS_ITS | CCD ---
Author Organization [facility] Care Team Providers Care Napper Fixer Name Role Phone RICARDO KAMALJIT Tapia Primary Care Unavailable MISC, DOCTOR Primary Care Unavailable SAVANNAH HERNÁNDEZ Admitting Unavailable SAVANNAH HERNÁNDEZ Attending Unavailable BLAIR KOCH Consulting Unavailable GRAHAM LINN V Consulting Unavailable ROHIT BRIZUELA Consulting Unavailable SAVANNAH HERNÁNDEZ Consulting Unavailable GIBRAN WAY Consulting Unavailable Chelsy Rosales CNP Primary Care Provider [phone] DO Ning Wakefield Attending Provider NING WAKEFIELD Attending Unavailable NING WAKEFIELD Attending Unavailable Phil MINAYA, [facility] Primary Care Provide r [facility], [facility] Primary Care Provider MD Angelina Tomlinson Attending Provider MD Aimee Singh Referring Provider [phone] Jesu Gilbert MD, [facility] Primary Care Provider KHORSAND MELISSA, RAFFI Referring Unavailabl e KHORSAND MELISSA, RAFFI Primary Care UnavailGRAHAM Reina Referring Unavailable KHORSAND MELISSA, RAFFI Primary Care UnavailCAMMIE Christianson Referring Unavailable KHORSAND MELISSA, RAFFI Primary Care UnavailGRAHAM Reina Referring Unavailable KHORSAND MELISSA, RAFFI Primary Care UnavailDELMA Brewer Attending Unavailable NING WAKEFIELD Referring Unavailable CLEM GALLARDO Attending Unavailable MARIA GUADALUPE, AIMEE Referring Unavailable CLEM GALLARDO Attending Unavailable CLEM GALLARDO Admitting Unavailable MARIA GUADALUPE, AIMEE Primary Care Unavailable MARIA GUADALUPE, AIMEE Referring Unavailable Pranay ADAMSON Attending Unavailable AIMEE SINGH Primary Care Unavailable DR. AIMEE SINGH Primary Care Physician Ning Wakefield DO Attending Provider [facility], [facility] Primary Care Provider Angelina Tomlinson MD Attending Provider Aimee Singh MD Referring Provider Ning Wakefield Admitting Unavailable Ning Wakefield Attending Unavailable Angelina Tomlinson Admitting Unavailable Angelina Tomlinson Attending Unavailable Aimee Singh Referring Unavailable [facility], [facility] Primary Care Unavailable Allergies Allergy Classification Reported Allergen(s) Allergy Type Date of Onset Reaction(s) Facility (1 source) -No Known Enviornmental Allergies; Translations: [-No Known Enviornmental Allergies] Allergy to substance 9 Health [facility] Work Phone: (1 source) No Known Medication Allergies; Translations: [No Known Medication Allergies] Propensity to adverse reactions (disorder) [facility] Repository Medications Current Medications Medication Drug [...] 08-14-2024 Start: 06-29-2023 take 1 capsule by [facility] once daily Diltiazem Hcl 120 mg capsule,extended [...] 12-07-2018 Magnesium 250MG Oral Tablet 12/07/2018 Provider: [place] (No Known Home Meds) (1 source) Start: 06-29-2017 [place] (No Known Home Meds) Active June 29, [...] unspecified] 07-01-2017 Episodic Other aftercare (1 source) 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 [facility] HPon 08-03-2024 History Of Present Illness Alexei Velasquez [...] rectal endoscopic ultrasound for local staging Normal [facility] POCT GLUCOSE METER UNSOLICIT ED RESULTSon 08-03-2024 Glucose [Mass/Vol] 104 mg/dL Normal 70-105 [facility] Comment on above: Order Comment: Waive d Testing in the ED is performed under the ED CLIA certificate #[id number]. Result Comment: acle ment Performed By: #### L [id number] #### [facility] (BEAKER) [address] [place] [address] Consulton 08-02-2024 Consult [id number] Paul Velasquez 1950 M Date Provider Department Center 08/02/2024 Duane-DELMA BROWN [facility] SURG Second Fl No family history on file Level of Service:67174 [place] OFFICE/OUTPATIENT NEW MODERATE MDM 45 MINUTES Reason for Visit and Comments: Rectal Cancer [254] Normal [facility] Orders Onlyon 08-02-2024 Orders Only [id number] Paul Velasquez 1950 M Date Provider Department Center 08/02/2024 [id number], HISTORICAL [facility] PAT [place] Medical C No family history on file Normal [facility] Orders Onlyon 08-01-2024 Orders Only [id number] Paul Velasquez 1950 M Date Provider Department Center 08/01/2024 [facility] No family history on file Normal [facility] SURGICAL PATHOLOGY REFERENCE LAB CONSULTon 08-01-2024 CASE REPORT Normal [facility] Comment on above: Order Comment: Speci men Type: FORMALIN-FIXED PARAFFIN-EMBEDDED TISSUE SPECIMEN Ordering Facility: [facility] Address: [address] [place] [address] Result Comment: Surg ical Pathology Report Case: [id number] Authorizing Provider: Aimee Singh MD Collected: 08/01/2024 03:44 PM Ordering Location: [facility] Received: 08/01/2024 03:44 PM [facility] Pathologist: Masoud Denson MD Specimen: Slide(s), 4 SLIDES [id number] Performed By: #### L [id number] #### [facility] CLIA [id number] [address] [place] [address] [place] CLINICAL HISTORY CONSULT REQUESTED [facility] Comment on above: Order Comment: Speci men Type: FORMALIN-FIXED PARAFFIN-EMBEDDED TISSUE SPECIMEN Ordering Facility: [facility] Address: [address] [place] [address] Performed By: #### L [id number] #### [facility] CLIA [id number] [address] [place] DIAGNOSIS COMMENT Normal [facility] Comment on above: Order Comment: Speci men Type: FORMALIN-FIXED PARAFFIN-EMBEDDED TISSUE SPECIMEN Ordering Facility: [facility] Address: [address] [place] [address] Result Comment: Than k you for allowing [...] do not hesitate to contact us at [phone] with questions or if additional follow-up information becomes available. This case was reviewed in conjunction with the GI pathology fellow, Patt Duarte M.D. Performed By: #### L [id number] #### [facility] CLIA [id number] [address] [place] [address] FINAL DIAGNOSIS Normal [facility] Comment on above: Order Comment: Speci men Type: FORMALIN-FIXED PARAFFIN-EMBEDDED TISSUE SPECIMEN Ordering Facility: [facility] Address: [address] [place], [place] [address] [place] [address] Result Comment: Rect al mass, biopsy (A1): - At least intramucosal adenocarcinoma. - See comment JRG/NK 08/02/24 Performed By: #### L [id number] #### [facility] CLIA [id number] [address] [place] [address] FINAL PERFORMING LAB Normal [facility] Comment on above: Order Comment: Speci men Type: FORMALIN-FIXED PARAFFIN-EMBEDDED TISSUE SPECIMEN Ordering Facility: [facility] Address: [address] [place] [address] [place] [id number] Result Comment: Diag nostic interpretation performed at: [facility], [address] [place] [address] CLIA# [id number] Pipe Smoker Machine Operator: Jluis Villafuerte MD Performed By: #### L [id number] #### [facility] CLIA [id number] [address] [place] [address] [place] BASIC METABOLIC PANLon 07-25 Anion gap [Moles/Vol] 8 mmol/L Normal 5-15 [facility] Comment on above: Performed By: #### P INR, 87945-7 #### [facility] ([id number]) [address] [place] [address] #### CBC, BMP #### [facility] ([id number]) [address] [place] [address] Calcium [Mass/Vol] 9.2 mg/dL Normal 8.5-10.5 [facility] Comment on above: Performed By: #### P INR, 37378-8 #### [facility] ([id number]) [address] [place] [address] 10989 #### CBC, BMP #### [facility] ([id number]) [address], [address] [place] [address] Chloride [Moles/Vol] 103 mmol/L Normal 98-109 [facility] Comment on above: Performed By: #### P INR, 23234-4 #### [facility] ([id number]) [address] [place] [address]2676 #### CBC, BMP #### [facility] ([id number]) [address] [place] [address] CO2 [Moles/Vol] 26 mmol/L Normal 22-32 [facility] Comment on above: Performed By: #### P INR, 68539-5 #### [facility] ([id number]) [address] [place] [address] 25327 #### CBC, BMP #### [facility] ([id number]) [address], [address] [place] [address] Creatinine [Mass/Vol] 0.91 mg/dL Normal 0.60-1.30 [facility] Comment on above: Result Comment: METH OD TRACEABLE TO IDMS STANDARD Performed By: #### P INR, 44173-0 #### [facility] ([id number]) [address] [place] [address] 96629 #### CBC, BMP #### [facility] ([id number]) [address], [address] [place] [address] GFR/1.73 sq M.predicted among non-blacks MDRD (S/P/Bld) [Vol rate/Area] 87 mL/min/{1.73_m2} Normal >59 [facility] Comment on above: Result Comment: Reported eGFR is based on the CKD-EPI 2020 equation that does not use a race coefficient. Performed By: #### P INR, 93818-5 #### [facility] ([id number]) [address] [place] [address] 70732 #### CBC, BMP #### [facility] ([id number]) [address], [address] [place] [address] Glucose [Mass/Vol] 103 mg/dL High 65-99 [facility] Comment on above: Performed By: #### P INR, 32924-4 #### [facility] ([id number]) [address] [place] [address] 91333 #### CBC, BMP #### [facility] ([id number]) [address], [address] [place] [address] Potassium [Moles/Vol] 5.1 mmol/L High 3.5-5.0 [facility] Comment on above: Performed By: #### P INR, 38177-2 #### [facility] ([id number]) [address] [place] [address] 90248 #### CBC, BMP #### [facility] ([id number]) [address], [address] [place] [address] Sodium [Moles/Vol] 137 mmol/L Normal 134-146 [facility] Comment on above: Performed By: #### P INR, 85081-9 #### [facility] ([id number]) [address] [place] [address] 43403 #### CBC, BMP #### [facility] ([id number]) [address], [address] [place] [address] Urea nitrogen [Mass/Vol] 10 mg/dL Normal 5-27 [facility] Comment on above: Performed By: #### P INR, 01463-9 #### [facility] ([id number]) [address] [place] [address] 40151 #### CBC, BMP #### [facility] ([id number]) [address] [facility] [place] [address] COMPLETE BLOOD COUNTon 07-25 Erythrocyte distribution width (RBC) [Ratio] 16.5 % High 11.5-15.0 [facility] Comment on above: Performed By: #### P INR, 46443-8 #### [facility] ([id number]) [address] [place] [address] 37990 #### CBC, BMP #### [facility] ([id number]) [address] [facility] [place] [address] Hematocrit (Bld) [Volume fraction] 30.0 % Low 39-49 [facility] Comment on above: Performed By: #### P INR, 66267-3 #### [facility] ([id number]) [address] [place] [address] 07357 #### CBC, BMP #### [facility] ([id number]) [address], [address] [place] [address] Hemoglobin (Bld) [Mass/Vol] 10.0 g/dL Low 13.0-17.0 [facility] Comment on above: Performed By: #### P INR, 18230-6 #### [facility] ([id number]) [address] [place] [address] 50024 #### CBC, BMP #### [facility] ([id number]) [address] [place] [address] MCH (RBC) [Entitic mass] 28.2 pg Normal 27-34 [facility] Comment on above: Performed By: #### P INR, 71369-2 #### [facility] ([id number]) [address] [place] [address] 04167 #### CBC, BMP #### [facility] ([id number]) [address] [facility] [place] [address] MCHC (RBC) [Mass/Vol] 33.2 g/dL Normal 32-36 [facility] Comment on above: Performed By: #### P INR, 80550-5 #### [facility] ([id number]) [address] [place] [address] 83627 #### CBC, BMP #### [facility] ([id number]) [address], [address] [place] [address] MCV (RBC) [Entitic vol] 85 fL Normal 80-100 [facility] Comment on above: Performed By: #### P INR, 33922-6 #### [facility] ([id number]) [address] [place] [address] 97315 #### CBC, BMP #### [facility] ([id number]) [address], [address] [place] [address] Platelet mean volume (Bld) [Entitic vol] 8.3 fL Normal 7-12 [facility] Comment on above: Performed By: #### P INR, 85743-3 #### [facility] ([id number]) [address] [place] [address] 62905 #### CBC, BMP #### [facility] ([id number]) [address] [facility] [place] [address] Platelets (Bld) [#/Vol] 296 10*3/uL Normal 150-450 [facility] Comment on above: Performed By: #### P INR, 29654-6 #### [facility] ([id number]) [address] [place] [address] 85678 #### CBC, BMP #### [facility] ([id number]) [address] [facility] [place] [address] RBC COUNT 3.53 X10E12/L Low 4.10-5.70 [facility] Comment on above: Performed By: #### P INR, 18751-2 #### [facility] ([id number]) [address] [place] [address] 88463 #### CBC, BMP #### [facility] ([id number]) [address] [facility] [facility], [address] [place] [address] WBC (Bld) [#/Vol] 6.4 10*3/uL Normal 4.0-11.0 [facility] Comment on above: Performed By: #### P INR, 22481-7 #### [facility] ([id number]) [address] [place] [address] 64218 #### CBC, BMP #### [facility] ([id number]) [address] [facility] [place] [address] PROTIME AND INRon 07-25-2024 INR Coag (PPP) [Relative time] 1.1 {INR} Normal 0.8-1.1 [facility] Comment on above: Performed By: #### P INR, 53647-9 #### [facility] ([id number]) [address] [place] [address] 71521 #### CBC, BMP #### [facility] ([id number]) [address] [address] [place] [address] PT Coag (PPP) [Time] 13.1 s Normal 9.8-13.2 [facility] Comment on above: Result Comment: NEW REFERENCE RANGE Performed By: #### P INR, 97025-1 #### [facility] ([id number]) [address] [place] [address] #### CBC, BMP #### [facility] ([id number]) [address] [place] [address] aPTT Coag (PPP) [Time]on aPTT Coag (Bld) [Time] 35 s Normal 26-37 [facility] Comment on above: Result Comment: NEW REFERENCE RANGE Performed By: #### P INR, 34285-5 #### [facility] ([id number]) [address] [place] [address] 38599 #### CBC, BMP #### [facility] ([id number]) [address] [place] [address], [address] [place] [address] Office Visiton 06-30-2024 Follow-up visit [id number] Paul Velasquez ld 1950 M Date Provider Department Center 06/30/2024 Noemy-CLEM GALLARDO [facility] No family history on file Level of Service:82976 [place] OFFICE/OUTPATIENT NEW MODERATE MDM 45 MINUTES (GC) Reason for Visit and Comments: 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 Normal [facility] Luther 06-20-2024 L Specimen: [id number] Received: 06/20/24 Status: SOUT Req Num: [id number] Spec Type: Surgical Subm Dr: Ning Wakefield DO Tissues: A Colon Biopsy (RECTAL MASS BX AT 5CM) Procedures: HE/4, Gross/Micro L4 Age/ Patient Sex Location Account Attending Physician Alexei Velasquez 73/M LABELL [id number] Ning Wakefield DO SPEC NUM: [id number] RECD: 06/20/24 STATUS: CECILIA RESea NUM: [id number] ANITA: 06/20/24 [facility] DR: Ning Wakefield DO ENTERED: 06/20/[address] [facility] [address]: Luana Brown SPEC TYPE: Surgical DEPT: FER PERES ENTERED BY: [id number] RECV BY: [id number] ORDERED: HE/4, Gross/Micro L4 ORDERED: HE/4, Gross/Micro L4 Supplemental Report Addendum 3 Entered: 08/02/24 Supplemental for findings of consultation report from [facility] -At least intramucosal adenocarcinoma -See comment Addendum Signed (signature on file) Kristian Sánchez MD 08/02/241806 Addendum 2 Entered: 07/28/24 Supplemental for findings of summary of detected somatic alterations, immunotherapy biomarkers and associated treatment options from [place] [address] [facility] Detected alterations/biomarkers associated FDA approved therapies clinical trial availability KRAS T50I Cetuximab, Panitumumab Yes SERGEY [id number] Olaparib, Talazoparib Yes APC E893 None Yes FBXW7 G219fs None Yes Specimen: [id number] Received: 06/20/24 Status: CECILIA Req Num: [id number] Spec Type: Surgical Subm Dr: Ning Wakefield DO Tissues: A Colon Biopsy (RECTAL MASS BX AT 5CM) Procedures: HE/4, Gross/Lily L4 Patient: Alexei Velasquez [id number] (Continued) Specimen: [id number] Received: 06/20/24 (Continued) Supplemental Report (Continued) Signed (signature on file) Mumtaz Amor MD 06/22/24 1845 Specimen: [id number] Received: 06/20/24 Status: CECILIA Garza Num: [id number] Spec Type: Surgical Subm Dr: Ning Wakefield DO Tissues: A Colon Biopsy (RECTAL MASS BX AT 5CM) Procedures: RASHAUNAlverto Hartman/Micro L4 Patient: Alexei Velasquez [id number] (Continued) Specimen: [id number] Received: 06/20/24 (Continued) Supplemental Report (Continued) APC [id number] None Yes TP53 W91fs None Yes Note: -Also see entire report on file for detailed information Addendum Signed (signature on file)Sarah Kristian Sánchez MD 07/28/24 0849 Addendum 1 Entered: 07/28/24 Supplemental for findings of PD-L1 22C3 by immunohistochemistry from [place] [address] [employer] -Combined positive score (CPS): 5 -Please also see [employer] PD-L1 22C3 online communications specialist-established reference ranges in original report Addendum Signed (signature on file)Sarah___John Sánchez MD 07/28/2438 Pathological Diagnosis Rectal mass biopsy and 5 [...] is filtered entirely submitted cassette A1. Specimen: [id number] Received: 06/20/24 Status: CECILIA Kayla Num: [id number] Spec Type: Surgical Subm Dr: Ning Wakefield, Tissues: A Colon Biopsy (RECTAL MASS BX AT 5CM) Procedures: ISABELL, Gross/Micro L4 Patient: Alexei Velasquez [id number] (Continued) Specimen: [id number] Received: 06/20/24 (Continued) Signed (signature on file) Mumtaz Amor MD 06/22/24 1845 Specimen: [id number] Received: 06/20/24-1 Status: CECILIA Garza Num: [id number] Spec Type: Surgical Subm Dr: Ning Wakefield, Tissues: A Colon Biopsy (more content not included)... Normal [facility] Phys[facility] CT CSPINE WO CONon 0 CT CSPINE [...] by: GIBRAN WAY Date: 2020-06-04 23:44 Normal [facility] CT HEAD WO CONon 06-05-2020 CT [...] GRAHAM LINN Date: 2020-06-04 22:07 Normal [facility] XR CHEST 1 Von 06-05-2020 [...] GRAHAM LINN Date: 2020-06-04 22:13 Normal [facility] XR PELVIS 1_2 VIEWSon 2019 [...] GRAHAM LINN Date: 2020-06-04 22:16 Normal [facility] XR SHOULDER LT 2V or [...] GRAHAM LINN Date: 2020-06-04 22:15 Normal [facility] CARDIAC SHANE ADMITon 020 CK [Catalytic activity/Vol] 84 U/L Normal 55-170 [facility] Comment on above: Performed By: #### C MP, ETH, CMADM #### [facility] [address] [place], [place] [address] Marielena Keller CK.MB [Mass/Vol] 1.08 ng/mL Normal <=2.37 [facility] Comment on above: Performed By: #### C HARINI WEST, CMADM #### [facility] [address] [place], [place] [address] Marielena Arianna INR Coag (Bld) [Relative time] SEE BELOW Normal [facility] Comment on above: Result Comment: <0.0 34 ng/ml NEGATIVE 0.034-0.119 INDETERMINATE 0.120 AMI CUT OFF Performed By: #### C HARINI WEST, CMAKODAK #### [facility] [address] [place] [address] Marielena Arianna KWABENA 58.0 ng/mL Normal <=121.0 [facility] Comment on above: Performed By: #### C HARINI WEST, CMAKODAK #### [facility] [address] [place] [address] Marielena Arianna TROP <0.012 Normal <=0.034 [facility] Comment on above: Performed By: #### C HARINI WEST, CMAKODAK #### [facility] [address] [place] [address] Marielena Arianna CBC AUTO DIFFon 06-04-2020 Basophils (Bld) [#/Vol] 0.1 103/ul Normal 0.0-0.1 [facility] Comment on above: Performed By: #### C BC #### [facility] [address] [place], [place] [address] Marielena Arianna Basophils/100 WBC (Bld) 1.5 % Normal 0.2-2.0 [facility] Comment on above: Performed By: #### C BC #### [facility] [address] [place], [place] [address] Marielena Arianna Eosinophils (Bld) [#/Vol] 0.1 103/ul Normal 0.0-0.7 [facility] Comment on above: Performed By: #### C BC #### [facility] [address] [place], [place] [address] Marielena Arianna Eosinophils/100 WBC (Bld) 2.6 % Normal 0.9-7.0 [facility] Comment on above: Performed By: #### C BC #### [facility] [address] [place], [place] [address] Marielena Arianna Erythrocyte distribution width (RBC) [Ratio] 13.3 % Normal 11.0-15.0 [facility] Comment on above: Performed By: #### C BC #### [facility] [address] [place], [place] [address] Marielena Arianna Hematocrit (Bld) [Volume fraction] 39.5 % Critically low 42.0-54.0 [facility] Comment on above: Performed By: #### C BC #### [facility] [address] [place], [place] [address] Marielena Arianna Hemoglobin (Bld) [Mass/Vol] 13.3 g/dL Critically low 14.0-18.0 [facility] Comment on above: Performed By: #### C BC #### [facility] [address] [place] [address] Marielena Arianna IG # 0.02 10e3/ul Normal 0.00-0.03 [facility] Comment on above: Performed By: #### C BC #### [facility] [address] [place], [place] [address] Marielena Arianna IG % 0.4 % Normal 0.0-0.5 [facility] Comment on above: Performed By: #### C BC #### [facility] [address] [place], [place] [address] Marielena Arianna Lymphocytes (Bld) [#/Vol] 1.7 103/ul Normal 1.2-3.8 [facility] Comment on above: Performed By: #### C BC #### [facility] [address] [place], [place] [address] Marielena Arianna Lymphocytes/100 WBC (Bld) 38.0 % Normal 20.5-60.0 [facility] Comment on above: Performed By: #### C BC #### [facility] [address] [place], [place] [address] Marielena Arianna MANUAL DIFF REQ NO Normal The [facility] Comment on above: Performed By: #### C BC #### [facility] [address] [place], [place] [id number] Marielena Arianna MCH (RBC) [Entitic mass] 32.1 pg Normal 25.9-34.0 The [facility] Comment on above: Performed By: #### C BC #### [facility] [address] [place], [place] [address] Marielena Keller MCHC (RBC) [Mass/Vol] 33.7 g/dL Normal 29.9-35.2 The [facility] Comment on above: Performed By: #### C BC #### [facility] [address] [id number] Marielena Keller MCV (RBC) [Entitic vol] 95.4 fL Critically high 80.0-94.0 The [facility] Comment on above: Performed By: #### C BC #### [facility] [address] [place], [place] [address] Marielena Arianna Monocytes (Bld) [#/Vol] 0.6 103/ul Normal 0.3-0.8 The [facility] Comment on above: Performed By: #### C BC #### [facility] [address] [place], [place] [address] Marielena Keller Monocytes/100 WBC (Bld) 13.7 % Critically high 1.7-12.0 The [facility] Comment on above: Performed By: #### C BC #### [facility] [address] [place], [place] [address] Marielena Keller Neutrophils (Bld) [#/Vol] 2.0 103/ul Normal 1.4-6.5 The [facility] Comment on above: Performed By: #### C BC #### [facility] [address] [place], [place] [address] Marielena Keller Neutrophils/100 WBC (Bld) 43.8 % Normal 43.0-75.0 The [facility] Comment on above: Performed By: #### C BC #### [facility] [address] [place], [place] [address] Marielenaemma Keller Platelet mean volume (Bld) [Entitic vol] 10.4 fL Normal 9.5-13.5 The [facility] Comment on above: Performed By: #### C BC #### [facility] [address] [place], [place] [address] Marielenaemma Keller Platelets (Bld) [#/Vol] 141 103/ul Critically low 150-450 [facility] Comment on above: Performed By: #### C BC #### [facility] [address] [place], [place] [address] Marielenaemma Zafaren RBC (Bld) [#/Vol] 4.14 106/ul Critically low 4.70-6.10 Th e [facility] Comment on above: Performed By: #### C BC #### [facility] [address] [place], [place] [address] Marielenaemma Zafaren WBC (Bld) [#/Vol] 4.5 103/ul Normal 4.0-11.0 [facility] Comment on above: Performed By: #### C BC #### [facility] [address] [place], [place] [address] Marielena Arianna ETHANOL (BLD ALC)on 06-04-20 20 Ethanol [Mass/Vol] NOTE: 80 mg/dl is the legal limit for a blood alcohol level Normal [facility] Comment on above: Performed By: #### C HARINI WEST, CMAKODAK #### [facility] [address] [place] [address] Marielena Arianna Ethanol [Mass/Vol] 347 mg/dL Normal [facility] Comment on above: Performed By: #### C HARINI WEST, CMADM #### [facility] [address] [place], [place] [address] Marielenaemma Zafaren PROF 14(COMP METB)on 020 Albumin [Mass/Vol] 3.5 g/dL Normal 3.5-5.0 The [facility] Comment on above: Performed By: #### C HARINI WEST, CMADM #### [facility] [address] [place], [place] [address] Marielena Arianna Albumin/Globulin [Mass ratio] 0.9 {ratio} Normal The [facility] Comment on above: Performed By: #### C JENNA ETH, CMADM #### [facility] [address] [place], [place] [address] Marielena Arianna ALP [Catalytic activity/Vol] 54 U/L Normal 38-126 The [facility] Comment on above: Performed By: #### C HARINI WEST CMADM #### [facility] [address] [address] Marielena Arianna ALT [Catalytic activity/Vol] 109 U/L Critically high 21-72 [facility] Comment on above: Performed By: #### C HARINI WEST CMADM #### [facility] [address] [place] [address] Marielena Arianna Anion gap [Moles/Vol] 14.5 mmol/L Normal [facility] Comment on above: Performed By: #### C HARINI WEST CMADM #### [facility] [address] [place] [address] Marielena Arianna AST [Catalytic activity/Vol] 128 U/L Critically high 17-59 [facility] Comment on above: Performed By: #### C HARINI WEST CMADM #### [facility] [address] [place] [address] Marielena Arianna Bilirubin Ql (U) 0.3 mg/dL Normal 0.2-1.3 The [facility] Comment on above: Performed By: #### C HARINI WEST CMADM #### [facility] [address] [place] [address] Marielena Arianna Calcium [Mass/Vol] 8.5 mg/dL Normal 8.4-10.2 The [facility] Comment on above: Performed By: #### C HARINI WEST CMADM #### [facility] [address] [place] [address] Marielena Arianna Chloride [Moles/Vol] 102 mmol/L Normal 98-107 The [facility] Comment on above: Performed By: #### C HARINI WEST CMADM #### [facility] [address] [place] [address] Marielena Arianna CO2 [Moles/Vol] 25.2 mmol/L Normal 22.0-30.0 The [facility] Comment on above: Performed By: #### C HARINI WEST CMADM #### [facility] [address] [address] Marielena Arianna Creatinine [Mass/Vol] 0.87 mg/dL Normal 0.66-1.25 The [facility] Comment on above: Performed By: #### C HARINI WEST CMADM #### [facility] [address] [address] Marielena Arianna EGFR-AF [place]AST [place] >60 Normal >=60 The [facility] Comment on above: Performed By: #### C HARINI WEST CMADM #### [facility] [address] [address] Marielena Arianna EGFR-NON AF [place] >60 Normal >=60 The [facility] Comment on above: Performed By: #### C HARINI WEST CMADM #### [facility] [address] [place] [address] Marielena Arianna Globulin (S) [Mass/Vol] 3.7 g/dL Normal The [facility] Comment on above: Performed By: #### C HARINI WEST CMADM #### [facility] [address] [place] [address] Marielena Arianna Glucose [Mass/Vol] 107 mg/dL Critically high 74-106 The [facility] Comment on above: Performed By: #### C HARINI WEST CMADM #### [facility] [address] [place] [address] Marielena Arianna Potassium [Moles/Vol] 3.7 mmol/L Normal 3.4-5.0 The [facility] Comment on above: Performed By: #### C HARINI WEST CMADM #### [facility] [address] [place] [address] Marielena Arianna Protein [Mass/Vol] 7.2 g/dL Normal 6.1-8.2 The [facility] Comment on above: Performed By: #### C HARINI WEST CMADM #### [facility] [address] [place] [address] Marielena Arianna Sodium [Moles/Vol] 138 mmol/L Normal 137-145 The [facility] Comment on above: Performed By: #### C HARINI WEST CMADM #### [facility] [address] [place], [place] [address] Marielena Arianna Urea nitrogen [Mass/Vol] 11.0 mg/dL Normal 9.0-20.0 [facility] Comment on above: Performed By: #### C HARINI WEST, JESSICA #### [facility] [address] [place], [place] [address] Marielena Arianna Urea nitrogen/Creatini ne [Mass ratio] 12.6 mg/mg Normal [facility] Comment on above: Performed By: #### C HARINI WEST, JESSICA #### [facility] [address] [place], [place] [address] Marielena Zafaren Vital Signs Date Time Vital Sign Value Performing Clinician Facility 08-15-2024 13:31-0500 Blood Pressure Location Pranay LENNONCEED [facility] 08-15-2024 13:31-0500 Diastolic blood pressure 74 mm[Hg] Pranay ADAMSON [facility] 08-15-2024 13:31-0500 Heart rate 72 /min Pranay JUAN DIEGO [facility] 08-15-2024 13:31-0500 Respiratory rate 16 /min Pranay ADAMSON [facility] 08-15-2024 13:31-0500 Systolic blood pressure 126 mm[Hg] Pranay ADAMSON [facility] 07-26-2024 13:02-0400 Body height 170.18 cm [facility] [facility] Work Phone: [facility] 07-26-2024 13:02-0400 Body mass index (BMI) [Ratio] 30.2 kg/m2 [employer] Work Phone: [facility] 07-26-2024 13:02-0400 Body weight 87.54 kg [facility] Work Phone: [facility] 07-26-2024 13:02-0400 Diastolic blood pressure 98 mm[Hg] [facility] Work Phone: [facility] 07-26-2024 13:02-0400 Respiratory rate 16 /min [facility] Work Phone: [facility] 07-26-2024 13:02-0400 SaO2% (BldA) [Mass fraction] 98 % [facility] Work Phone: [facility] 07-26-2024 13:02-0400 Systolic blood pressure 169 mm[Hg] [facility] Work Phone: [facility] 07-25-2024 14:27-0400 Body height 177.8 cm [facility] 2 [facility] 07-25-2024 14:27-0400 Body mass index (BMI) [Ratio] 27.98 kg/m2 [facility] 2 [facility] 07-25-2024 14:27-0400 Body weight 88.45 kg [facility] 2 [facility] 06-28-2024 08:14-0400 Body height 177.8 cm [employer] Work Phone: [facility] [employer] 06-28-2024 08:14-0400 Body mass index (BMI) [Ratio] 27.55 kg/m2 [employer] Phone: [facility] [employer] 06-28-2024 08:14-0400 Body weight 87.09 kg [employer] Work Phone: [facility] [employer] 06-28-2024 08:14-0400 Diastolic blood pressure 84 mm[Hg] [employer]ing [employer] Work Phone: [facility] [employer] 06-28-2024 08:14-0400 Heart rate 85 /min [employer] Work Phone: [facility] [employer] 06-28-2024 08:14-0400 Respiratory rate 18 /min [employer] Work Phone: [facility] [employer] 06-28-2024 08:14-0400 SaO2% (BldA) [Mass fraction] 98 % Ning Wakefield DO Work Phone: [facility] 06-28-2024 08:14-0400 Systolic blood pressure 138 mm[Hg] Ning Wakefield DO Work Phone: [facility] 12-07-2018 16:37-0400 Body height 177.8 cm Chelsy Rosales CNP Work Phone: [facility] Work Phone: 12-07-2018 16:37-0400 Body mass index (BMI) [Ratio] 25.9 kg/m2 Chelsy Rosales CNP Work Phone: [facility] Work Phone: 12-07-2018 16:37-0400 Body surface area Derived from formula 2 m2 Chelsy Rosales CNP Work Phone: [facility] Work Phone: 12-07-2018 16:37-0400 Body temperature 96.6 [degF] Chelsy Rosales CNP Work Phone: [facility] Work Phone: 12-07-2018 16:37-0400 Body weight 81.76 kg Chelsy Rosales CNP Work Phone: [facility] Work Phone: 12-07-2018 16:37-0400 Diastolic blood pressure 80 mm[Hg] Chelsy Rosales CNP Work Phone: [facility] Work Phone: 12-07-2018 16:37-0400 Heart rate 54 /min Chelsy Rosales CNP Work Phone: [facility] Work Phone: 12-07-2018 16:37-0400 SaO2% (BldA) [Mass fraction] 98 % Chelsy Rosales CNP Work Phone: [facility] Work Phone: 12-07-2018 16:37-0400 Systolic blood pressure 130 mm[Hg] Chelsy Rosales [employer] Work Phone: [facility] Work Phone: Encounters Encounter Date Encounter Type Care Provider Facility Start: 08-17-2024 Registered [facility] Work Phone: Start: 08-17-2024 End: 08-17-2024 ambulatory [facility] Work Phone: [facility] Work Phone: Start: 08-17-2024 End: 08-17-2024 Patient encounter procedure [facility] Work Phone: Start: 08-15-2024 End: 08-15-2024 ambulatory AIMEE MARIA GUADALUPE Facility: [facility] Start: 08-15-2024 End: 08-15-2024 Patient encounter procedure Pranay ADAMSON [facility] Start: 08-10-2024 ambulatory AIMEE MARIA GUADALUPE Facility :[facility] Start: 08-03-2024 End: 08-03-2024 ambulatory AIMEE MARIA GUADALUPE [facility] Start: 08-02-2024 End: 08-02-2024 ambulatory DELMA BROWN [facility] Start: 07-26-2024 Registered [facility] Work Phone: Start: 07-26-2024 End: 07-26-2024 ambulatory [facility] Work Phone: [facility] Work Phone: Start: 07-26-2024 End: 07-26-2024 Patient encounter procedure [facility] Work Phone: [facility] Work Phone: Start: 07-25-2024 Encounter for other preprocedural examination RAFFI KHOURYARI [facility] Start: 07-25-2024 End: 07-25-2024 Patient encounter procedure [facility] Pre-Admission Testing 2 [facility] - Pre Admit Start: 07-25-2024 End: 07-25-2024 ambulatory CAMMIE KRUSE [facility] Start: 07-25-2024 End: 07-25-2024 ambulatory GRAHAM GLEZ [facility] Start: 06-30-2024 End: 06-30-2024 ambulatory NING WAKEFIELD [facility] Start: 06-28-2024 End: 06-28-2024 Bamboo flowsheet [...] (Primary Dx) Start: 06-28-2024 End: 06-28-2024 ambulatory NINGYEMI WAKEFIELD Not Available Start: 06-20-2024 End: 06-20-2024 ambulatory Ning Nicol [facility] Work Phone: Start: 06-20-2024 End: 06-20-2024 Departed Referred DO Ning Wakefield Work Phone: [facility] Start: 06-05-2024 End: 06-05-2024 ambulatory NING NICOL Not Available Start: 06-05-2020 End: 06-05-2020 Patient encounter procedure DOCTOR MIS Facility:[facility] Start: 04-25-2019 End: 04-26-2019 Emergency department patient visit KAMALJIT SILVA [facility] Start: 12-07-2018 End: 12-07-2018 FQ visit new patient Wendi Katz [employer] Work Phone: [facility] Work Phone: Procedures Date Procedure Procedure Detail Performing Clinician Start: 01-07-2022 Adult depression scr eening assessment [facility] 2 Start: 12-07-2018 HYPERTENSION (SYSTEMIC) Chelsy Rosales [employer] Work Phone: Start: 12-07-2018 Operative procedure on ankle Chelsy Rosales [employer] Work Phone: Start: 12-07-2018 Operative procedure on hand Chelsy Rosales [employer] Work Phone: Start: 12-07-2018 Surgical procedure Levar Rosales [employer] Work Phone: Angiography Pranay NILL Closed fracture of a nkle (disorder) Pranay NILL Closed fracture of l eft wrist (disorder) Pranay NILL Colonoscopy Pranay NILL Colonoscopy Pranay NILL Extraction of cataract Rex abdi NILL Plan of Treatment Date Care Activity Detail Author Start: 06-04-2030 DTaP,Tdap and Td Vaccines (4 - Td or Tdap) DTaP,Tdap and Td Vaccines (4 - Td or Tdap) [facility] Start: 07-25-2025 Adult BMI Screening Adult BMI Screen ing [facility] Start: 07-25-2025 Tobacco Screening Tobacco Screening [facility] Start: 07-28-2024 End: 07-28-2024 Admission to same day surgery center 07/28/2024 9:00 AM EDT - 07/28/2024 10:00 AM EDT Surgery [facility] - Surgery [address] [place] [id number] Cammie Kruse MD [address] [place] [address] INSERTION PORT A CATH-MEDI PORT FOR CHEMO [87853 (CPT )] [facility] Comment on above: INSERTION PORT A CAT H-MEDI PORT FOR CHEMO [58267 (CPT )] Start: 07-28-2024 End: 07-28-2024 Anesthesia consultation 07/28/2024 9:00 AM EDT Anesthesia Event [facility] [address] [place] [facility] [id number] Ruperto Ponce, DO [address] [facility], [place] [id number] [facility] Start: 07-28-2024 End: 07-28-2024 Insj tunneled ctr vad w/subq port age 3 yr/> INSERTION PORT A CATH Malignant neoplasm of rectum (CMS-HCC) Encounter for therapeutic drug monitoring 07/28/2024 9:00 AM EDT [facility] Start: 07-28-2024 Subsequent hospital visit by physician 07/28/2024 9:00 AM EDT Hospital Encounter [facility] [address] [place] [facility] [place] [id number] Cammie Kruse MD [address] [facility] [address] [place] [address] [facility] Start: 06-28-2024 End: 06-28-2025 Creatine Creatine Lab Routine Adenocarcinoma of rectum (HCC) (CMS/HCC) Expected: 06/28/2024 (Approximate), Expires: 06/28/2025 [facility] Comment on above: Expected: 06/28/2024 (Approximate), Expires: 06/28/2025 Start: 06-28-2024 End: 06-28-2025 CT CHEST ABDOMEN PELVIS W IV CONTRAST CT CHEST ABDOMEN PELVIS W IV CONTRAST Imaging Routine Adenocarcinoma of rectum (HCC) (CMS/HCC) Expected: 06/28/2024, Expires: 06/28/2025 [facility] Work Phone: Comment on above: Expected: 06/28/2024 , Expires: 06/28/2025 Start: 06-28-2024 End: 06-28-2025 MR Pelvis WO and W contrast IV MR pelvis w and wo contrast Imaging Routine Adenocarcinoma of rectum (HCC) (CMS/HCC) Expected: 06/28/2024, Expires: 06/28/2025 [facility] Comment on above: Expected: 06/28/2024 , Expires: 06/28/2025 Start: 06-28-2024 End: 06-28-2024 Patient encounter procedure 06/28/2024 8:15 AM EDT Office Visit BERNARD ESPINOZA [address] [place] [address] Ning Wakefield DO [address] [place] [address] Arrived NOMLo ESPINOZA Comment on above: Arrived Start: 05-28-2024 COVID-19 Vaccine ( season) COVID-19 Vaccine ( season) [facility] Start: 05-28-2024 Influenza vaccination Influenza Vacc ine [facility] Start: 01-07-2023 Depression Screening Depression Scre ening [facility] Start: 2013 Fall Risk Screening Fall Risk Screen ing [facility] Start: 1967 Administration of varicella zoster vaccine Zoster (Shingles) Vaccine (1 of 2) [facility] Start: 1950 Tobacco Counseling Tobacco Counselin g [facility] Immunizations Immunization Date Immunization Notes Care Provider Fa cility 06-27-2021 SARS-CoV-2 (COVID-19 ) mRNA BNT-162b2 cedricx Pranay ADAMSON [facility] Comment on above: Result Comment: 2023: [id number] 06-27-2021 influenza virus vaccine, unspecified formulation Pm 2 [facility] 01-03-2021 SARS-CoV-2 (COVID-19 ) mRNA BNT-162b2 ghassan ADAMSON [facility] 12-13-2020 SARS-CoV-2 (COVID-19 ) mRNA BNT-162b2 ghassan ADAMSON [facility] 04-16-2018 tetanus toxoid, redu mary jo diphtheria toxoid, and acellular pertussis vaccine, adsorbed [facility] 2 [facility] 07-08-2017 influenza, high dose seasonal, preservative-free DO Ning Wakefield Work Phone: [facility] 06-07-2017 tetanus toxoid, redu mary jo diphtheria toxoid, and acellular pertussis vaccine, adsorbed DO Ning Wakefield Work Phone: [facility] Payers Date Payer Category Payer Self-pay [id number] 2022 Medicare [employer] [id number] 2022-Present [address] [place] [address] [id number] 2022 Medicare O [employer] [id number] 2022 Medicare [id number] 1959 Unknown [id number] 1948 Unknown [id number] 1948 Unknown [id number] 1948 Unknown [id number] 1948 Unknown [id number] 1948 Unknown [id number] 1948 Unknown [id number] [id number] 1948 Unknown [id number] [id number] 1948 Unknown [id number] 1948 Unknown [id number] Medicare 1 - Medicare [facility] PPS 2V [id number] Medicare Medicare [id number] Unknown [facility] [id number] Unknown [id number] Unknown [id number] Social History Date Type Detail Facility Assertion Finding of alcoh ol intake (finding) [facility] Work Phone: Assertion Gender identity finding (finding) [facility] Work Phone: Assertion Heterosexual (finding[facility] Work Phone: [facility]ion [facility] Assertion Finding of sexua l orientation (finding) [facility] Work Phone: Tobacco smoking status Unknown if ever smoked [facility] Start: 08-11-2017 End: 08-11-2017 Tobacco smoking status NHIS Never smoked tobacco (finding) [facility] Start: 1950 Sex Assigned At Male [facility] Start: 1950 Sex assigned at Not on file [facility] Start: 11-07-2020 End: 07-25-2024 Gender identity Not on file [facility] Start: 12-23-2022 Tobacco use and exposure User of smokeless tobacco [facility] History of tobacco use Chews Tobacco [facility] Start: 07-25-2024 Alcoholic beverage intake Current drinker of alcohol (finding) [facility] Start: 11-07-2020 End: 07-25-2024 Alcoholic beverage intake [facility] Start: 07-25-2024 Alcohol Comment beer daily, 2- 4 cans per day and some occassional shots of whiskey [facility] Start: 11-02-2015 End: 08-17-2024 Sex Male (finding) [facility] NEGATED: Highlighted row Assertion Exposure to pollution (event) [facility] Work Phone: NEGATED: Highlighted row Assertion Tobacco user (finding) [facility] Work Phone: NEGATED: Highlighted row Assertion Finding relating to drug misuse behavior (finding) [facility] Work Phone: Medical Equipment Procedure Code [...] 06-25-2017 Lens Iol Ultrase rt 17.0d - [id number] - [id number] Start: 06-29-2023 Lens Iol Ultrase rt 18.5d - [id number] - [id number] Start: 07-13-2023 Goals Date Patient Goal Desired Activity /State Personal health goal Comment on above: Formatting of this n ote might be different from the original. Evaluation of progress towards goal: Safe transition from hospital to home. Functional Status Date Assessment Result Facility 08-15-2024 Functional Status N/A [facility] Clinical Notes 06-28-2024 to 08-15-2024 Note Date [...] h/o atrial fibrillation, on Eliquis, htn, hypercholesterolemia, [place], recently diagnosed with advanced rectal cancer, referred for [id number] for chemotherapy; no h/o previous port or [...] rectum (C20: Malignant neoplasm of rectum) plan [id number] insertion under general anesthesia, informed consent obtained. [...] SARS-CoV-2 (COVID-19) mRNA BNT-162b2 vax 12/13/2020 Recorded [facility] Comment on above: Result Comment: Elec tronically Signed By: JUAN DIEGO MINAYA, Pranay Guerra\Date and Time Signed: 08/15/24 14:12 EST 08-03-2024 Note Patient: Alexei colindres Procedure Summary Date: 08/03/24 Room / Location: [facility] Endoscopy Anesthesia Start: 1215 [...] per anesthesia protocol. No notable events documented. [facility] 08-03-2024 Note Patient: Alexei colindres Procedure Summary Date: 08/03/24 Room / Location: [facility] Endoscopy Anesthesia Start: 1215 Anesthesia Stop: Procedure: ENDOSCOPIC ULTRASOUND (LOWER) Diagnosis: Rectal mass Scheduled Providers: Clem Gallardo MD; Fredrick Domínguez MD; ULISA Martin Responsible Provider: Fredrick Domínguez MD Anesthesia Type: MAC ASA Status: 3 Anesthesia Post [facility] Patient Monitor: direct observation Transport: uneventful Patient condition is: stable [facility] 08-03-2024 Note Patient: Alexei colindres Procedure Information Date/Time: 08/03/24 1230 Scheduled providers: Clem Gallardo MD; Fredrick Domínguez MD; LUISA Martin Procedure: ENDOSCOPIC ULTRASOUND (LOWER) Location: [facility] Endoscopy Relevant Problems Anesthesia (within normal limits) [...] Plan discussed with CAA. Additional Equipment Requests [facility] 08-02-2024 Note Subjective Patient ID: Alexei Velasquez [...] No follow-ups on file. Elkin Shepard, MS3 [facility] 07-26-2024 Evaluation note Diagnosis Onset Date Resolution Adenocarcinoma of rectum acute July 26, 2024 12:38pm Adenocarcinoma of rectum acute August 17, 2024 9:17am [facility] Work Phone: 1(656) 859-197010-29-2024 Instructions* Patient Instructions* Casi Centeno RN - 07/25/2024 2:15 PM EDT Preoperative Education Checklist- General Surgery date: 07/28/24 Surgery time: 0900 a.m. Arrival time: 0700 a.m. 1. Bring a photo ID and your insurance card with you the day of surgery. You will check in at the main lobby of the [facility]- registration desk is straight ahead as soon as you walk in. Tell them you are here for surgery. 2. If you have a Living Will/Durable Power of Clinical Pharmacy Specialist for Health Care that is not on [...] after you have bathed. 5. NO nail [place]/acrylic on at least one finger. If you are having a hand, wrist or foot surgery then all nail [place] and artificial/acrylic nails must be removed from [...] please call the Preadmission Testing office at [phone], Mon.-Fri. 7 a.m.-3 p.m. Leave a voicemail [...] go swimming or use a hot tub ([employer]), or perform activities where your incision is [...] appointment with your doctor. [facility] Miscellaneous Notes* Perioperative Nursing Note - Casi Centeno RN - 07/25/2024 2:15 PM EDT Preoperative Education Checklist- General Surgery date: 07/28/24 Surgery time: 0900 a.m. Arrival time: 0700 a.m. 1. Bring a photo ID and your insurance card with you the day of surgery. You will check in at the main lobby of the [facility]- registration desk is straight ahead as soon as you walk in. Tell them you are here for surgery. 2. If you have a Living Will/Durable Power of Clinical Pharmacy Specialist for Health Care that is not on [...] after you have bathed. 5. NO nail [place]/acrylic on at least one finger. If you are having a hand, wrist or foot surgery then all nail [place] and artificial/acrylic nails must be removed from [...] please call the Preadmission Testing office at [phone], Mon.-Fri. 7 a.m.-3 p.m. Leave a voicemail [...] reviewed. Patient verbalized understanding. [facility] Nurse Note* Perioperative Nursing Note - Casi Centeno RN - 07/25/2024 2:15 PM EDT Preoperative Education Checklist- General Surgery date: 07/28/24 Surgery time: 0900 a.m. Arrival time: 0700 a.m. 1. Bring a photo ID and your insurance card with you the day of surgery. You will check in at the main lobby of the [facility]- registration desk is straight ahead as soon as you walk in. Tell them you are here for surgery. 2. If you have a Living Will/Durable Power of Clinical Pharmacy Specialist for Health Care that is not on [...] after you have bathed. 5. NO nail [place]/acrylic on at least one finger. If you are having a hand, wrist or foot surgery then all nail [place] and artificial/acrylic nails must be removed from [...] please call the Preadmission Testing office at [phone], Mon.-Fri. 7 a.m.-3 p.m. Leave a voicemail [...] to the follow-up appointment with your doctor. [facility] [id number] Nurse Note* Perioperative Nursing Note - Casi Centeno RN - 07/25/2024 2:15 PM EDT Hibiclens and surgical instructions reviewed. Patient verbalized understanding. [facility] Note Attestation signed by Clem Gallardo MD at 07/03/2024 9:36 AM I personally saw and examined the patient on the same date of service as resident/fellow . I discussed the findings and therapeutic plan with the resident/fellow . I agree with the documentation. [facility] Gastroenterology New Patient Visit - History & Physical CHIEF COMPLAINT Chief Complaint Patient presents with New Patient adenocarcinoma of rectum HISTORY OF PRESENT ILLNESS: Alexei Velasquez is a 73 y.o. male has hx of a-fib for that patient is on eliquis, essential hypertension who recently had ER visit for hematochezia. Patient followed up with the GI at [facility] where he underwent colonoscopy which revealed [...] PROT B12/Folate/Iron studies: No results found for: [id number] , FOLATE , IRON , TIBC , UIBC , IRONSAT , FERRITIN Viral Hepatitis No results found for: HEPAIGM , HAV , HEPBSAG , HEPBSAB , HEPBEAB , HEPBIGM , HEPBCAB , HEPBCOREAB , HBVNAT , HCVSCR , HEPCAB , HCVNAT , HCVPCR , HCVTMA Liver Workup No results found for: JENNIFER , SMOOTHMUSCAB , CERULOPLSM , [id number] , TTGA , IGA , TSH , FREET4 , AFP Pancreatitis No results found for: AMYLASE , LIPASE , TRIG , CALCIUM ASSESSMENT AND PLAN: Alexei Velasquez is a 73 y.o. male has hx of a-fib for that patient is on eliquis, essential hypertension who recently had ER visit for hematochezia. Patient followed up with the GI at [facility] where he underwent colonoscopy which revealed [...] No complaints at t (more content not included)...[facility]10-02-2024 History of Present illness Narrative* Ning Wakefield, [...] Tobacco Use: High Risk (07/13/2023) Received from [employer] Patient History Smoking Tobacco Use: Never Smokeless Tobacco Use: Current Passive Exposure: Not on file Alcohol Use: Not on file Depression: Not at risk (01/07/2022) Received from [employer] PHQ-2 Total Score: 2 Physical Activity: Not [...] Document Information Other: Other PATHOLOGY REPORT [facility] 06/20/2024 00:00 Attached To: Alexei Velasquez Source [...] note No data available for this section [facility] Evaluation note Assessments not supported for this document type No Assessments [facility] Work Phone: Evaluation noteNo assessment information available [facility] Work Phone: Evaluation note* Diagnosis Adenocarcinoma of rectum (HCC) (CMS/HCC)- Primary documented in this encounter [facility] Diagnosis Onset Date Resolution Status Adenocarcinoma of rectum acu te [facility] Work Phone: History of Present illness Narrative History of Present Illness not supported for this document type No History of Present Illness [facility] Work Phone: Hospital Discharge instructions No data available for this section [facility] Instructions Instructions not supported for this document type No Instructions [facility] Work Phone: patient problem outcome Narrative Includes: Evaluations & Outcomes for active Goals No Outcomes [facility] Work Phone: progress note No data available for this section [facility] Reason for referral (narrative)* Consultation (Routine) - Pending Review Specialty Diagnoses / Procedures Referred By Contac t Referred To Contact Oncology Diagnoses Adenocarcinoma of rectum (HCC) (CMS/HCC) Procedures [place] OFFICE/OUTPATIENT NEW HIGH MDM 60 MINUTES Ning Wakefield DO [address] [facility] [address] [place] [address] Aimee Singh MD [address] [place] [address] Referral ID Status Reason Start Date Expiration Date Visits Requested Visits Authorized [id number] Pending Review Specialty Services Required 06/28/2024 12/25/2024 1 1 * Imaging (Routine) - Pending Review Specialty Diagnoses / Procedures Referred By Contac t Referred To Contact Radiology Diagnoses Adenocarcinoma of rectum (HCC) (CMS/HCC) Procedures MR pelvis w and wo contrast Ning Wakefield, [address] [facility] [address] [place] [address] [facility] [address] [place] [address] Referral ID Status Reason Start Date Expiration Date V isits Requested Visits Authorized [id number] Pending Review 06/28/2024 12/25/2024 1 1 * Imaging (Routine) - Pending Review Specialty Diagnoses / Procedures Referred By Contac t Referred To Contact Radiology Diagnoses Adenocarcinoma of rectum (HCC) (CMS/HCC) Procedures CT CHEST ABDOMEN PELVIS W IV CONTRAST Ning Wakefield, [address] [facility] [address] [place] [address] [place] [address] Referral ID Status Reason Start Date Expiration Date V isits Requested Visits Authorized [id number] Pending Review 06/28/2024 12/25/2024 1 1 [facility] Narrative - Reported Review of Systems not supported for this document type No Review of Systems [facility] Work Phone: Summary Purpose Family [...] Admit Date Adenocarcinoma of rectum July 26, 2 024 12:38pm Adenocarcinoma of rectum August 17, 2024 9:17am Additional Source Comments (unrecognized sect ion and content) No Status Records FoundNo Status Records FoundNo Status Records FoundNo Status Records FoundNo Status Records FoundNo Status Records FoundNo Status Records FoundNo Status Records Found INFORMATION SOURCE (unrecogn ized section and content) DATE CREATED AUTHOR 04/27/2019 Alia Christinafin [facility] DATE CREATED AUTHOR AUTHOR'S ORGANIZ ATION 06/12/2020 [facility] DATE CREATED AUTHOR AUTHOR'S ORGANIZ ATION 06/29/2024 [facility] DATE CREATED AUTHOR AUTHOR'S ORGANIZ ATION 07/27/2024 [facility] DATE CREATED AUTHOR AUTHOR'S ORGANIZ ATION 08/04/2024 [facility] DATE CREATED AUTHOR AUTHOR'S ORGANIZ ATION 08/12/2024 [facility] DATE CREATED AUTHOR AUTHOR'S ORGANIZ ATION 08/16/2024 [facility] DATE CREATED AUTHOR AUTHOR'S ORGANIZ ATION 08/20/2024 [facility] Care Teams (unrecognized sec tion and content) Team Status: Inactive Member Role Status Dates Ning Wakefield DO Attending Provider Active Star t: June 20, 2024 End: June 20, 2024 Napper Fixer Relationship Specialty Start Date End Date Shabnam Villarreal MD [address] [place] [address] PCP - General Behavioral Health 06/05/24 Napper Fixer Relationship Specialty Start Date End Date Shabnam Villarreal MD [address] [facility] [place] [address] PCP - General Behavioral Health 06/05/24 Team Status: Active Member Role Status Dates [facility] Primary Care Provider Active Team Status: Inactive Member Role Status Dates Angelina Tomlinson MD Attending Provider Active Start: July 26, 2024 End: July 26, 2024 [facility] Primary Care Provider Active Start: July 26, 2024 End: July 26, 2024 Aimee Singh MD Referring Provider Active St art: July 26, 2024 End: July 26, 2024 Team Status: Active Member Role Status Dates [facility] Primary Care Provider Active Start: July 26, 2024 Angelina Tomlinson MD Attending Provider Active Start: July 26, 2024 Aimee Singh MD Referring Provider Active St art: July 26, 2024 Napper Fixer Relationship Specialty Start Date End Date Raffi Byrd MD [address] [place] [address] PCP - General Internal Medicine 01/01/22 Team Status: Inactive Member Role Status Dates [facility] Primary Care Provider Active Start: August 17, 2024 End: August 17, 2024 Angelina Tomlinson MD Attending Provider Active Start: August 17, 2024 End: August 17, 2024 Team Status: Active Member Role Status Dates [facility] Primary Care Provider Active Start: August 17, [...] BE BASED ON THE PRIMARY CLINICAL RECORDS. [employer] provides no warranty or guarantee of the accuracy or completeness of information in this document.
[2024-09-05 10:50] VITALS: BP 105/71; PULSE 69; TEMP 36.3; O2SAT 97
[2024-09-05 11:18] LABS: Basophils Absolute Auto 0.1 10^3/uL (0.0-0.1); Eosinophils Absolute Auto 0.2 10^3/uL (0.0-0.7); Eosinophils Percent Auto 2.9 % (0.9-7.0); Hematocrit 29.8 % (42.0-54.0); Hemoglobin 9.5 g/dL (14.0-18.0); Immature Granulocytes Abs Auto 0.02 10^3/uL (0.00-0.03); Immature Granulocytes Pct Auto 0.4 % (0.0-0.5); Lymphocytes Absolute Auto 1.1 10^3/uL (1.2-3.8); Lymphocytes Percent Auto 22.4 % (20.5-60.0); Mean Corpuscular HGB Conc 31.9 g/dL (29.9-35.2); Mean Corpuscular Hemoglobin 24.9 pg (25.9-34.0); Mean Platelet Volume 10.3 fL (9.5-13.5); Monocytes Absolute Auto 0.5 10^3/uL (0.3-0.8); Neutrophils Absolute Auto 3.2 10^3/uL (1.4-6.5); Neutrophils Percent Auto 63.3 % (43.0-75.0); Platelet Count 283 10^3/uL (150-450); Red Blood Count 3.82 10^6/uL (4.70-6.10); Red Cell Distribution Width 17.9 % (11.0-15.0); White Blood Count 5.1 10^3/uL (4.0-11.0)
[2024-09-05 11:25] LABS: Alanine Aminotransferase 13 U/L (16-63); Albumin Globulin Ratio 0.8; Albumin Level 3.2 g/dL (3.4-5.0); Alkaline Phosphatase 111 U/L (46-116); Anion Gap 10.9; Aspartate Amino Transferase 18 U/L (15-37); Bilirubin Total 0.8 mg/dL (0.2-1.0); Calcium 8.9 mg/dL (8.5-10.1); Carbon Dioxide 28.6 mmol/L (21.0-32.0); Chloride 102 mmol/L (98-107); Estimated GFR (African America >60 (>=60 mL/min/1.73m^2); Estimated GFR (Non-African Ame >60 (>=60 mL/min/1.73m^2); Globulin 4.1 g/dL; Glucose 108 mg/dL (74-106); Magnesium 1.8 mg/dL (1.8-2.4); Potassium 3.5 mmol/L (3.5-5.1); Sodium 138 mmol/L (136-145); Total Protein 7.3 g/dL (6.4-8.2)
--- NOTE | 2024-09-05 12:16 | PC.NURSE ---
1050: Pt. to [facility] amb. accompanied by sister. Weight obtained. Seated in recliner. VSS. Assessment completed. Using sterile technique, right ant. chest port accessed easily with good blood return. Blood obtained for lab orders. Pt. tolerated well. Secured with Opsite. Given menu. 1125: Lunch tray ordered. 1150: Dr. Singh in to see pt. Notifies pt. and sister that treatment to be held per radiologist recommendation. Both relay understanding. 1219: Pt. eating lunch. Denies needs or c/o.
[2024-09-05] MEDS: HEPARIN SODIUM (PORCINE) PF LOCK FLUSH 500 UNIT/5 ML SYRINGE IV (12:27)
[2024-09-12 09:49] VITALS: BP 149/93; PULSE 76; TEMP 36.9
[2024-09-12 09:59] LABS: Basophils Absolute Auto 0.1 10^3/uL (0.0-0.1); Eosinophils Absolute Auto 0.3 10^3/uL (0.0-0.7); Hematocrit 30.2 % (42.0-54.0); Hemoglobin 9.5 g/dL (14.0-18.0); Immature Granulocytes Abs Auto 0.01 10^3/uL (0.00-0.03); Immature Granulocytes Pct Auto 0.2 % (0.0-0.5); Lymphocytes Percent Auto 20.2 % (20.5-60.0); Mean Corpuscular HGB Conc 31.5 g/dL (29.9-35.2); Mean Corpuscular Volume 79.5 fL (80.0-94.0); Mean Platelet Volume 10.3 fL (9.5-13.5); Monocytes Absolute Auto 0.6 10^3/uL (0.3-0.8); Monocytes Percent Auto 12.6 % (1.7-12.0); Platelet Count 220 10^3/uL (150-450); Red Cell Distribution Width 19.4 % (11.0-15.0)
[2024-09-12 10:09] LABS: Erythrocyte Sedimentation Rate 75 mm/hr (<=20)
[2024-09-12 10:25] LABS: Alanine Aminotransferase 17 U/L (16-63); Albumin Globulin Ratio 0.7; Albumin Level 3.1 g/dL (3.4-5.0); Alkaline Phosphatase 117 U/L (46-116); Aspartate Amino Transferase 21 U/L (15-37); BUN Creatinine Ratio 13.8; Bilirubin Total 0.5 mg/dL (0.2-1.0); C Reactive Protein <0.50 mg/dL (<=0.50); Calcium 8.6 mg/dL (8.5-10.1); Carbon Dioxide 27.4 mmol/L (21.0-32.0); Chloride 105 mmol/L (98-107); Estimated GFR (African America >60 (>=60 mL/min/1.73m^2); Estimated GFR (Non-African Ame >60 (>=60 mL/min/1.73m^2); Globulin 4.2 g/dL; Glucose 111 mg/dL (74-106); Magnesium 2.2 mg/dL (1.8-2.4); Potassium 4.4 mmol/L (3.5-5.1); Sodium 140 mmol/L (136-145); Total Protein 7.3 g/dL (6.4-8.2)
[2024-09-12] MEDS: PALONOSETRON HCL 0.25 MG/5 ML VIAL IV (11:15)
[2024-09-12 11:16] LABS: Percent Iron Saturation 7.1 %
[2024-09-12] MEDS: DEXAMETHASONE SODIUM PHOSPHATE 10 MG in 0.9 % SODIUM CHLORIDE 100 ML 303 MG IV (11:16)
[2024-09-12] MEDS: DEXTROSE 5 % IN WATER 250 ML 10 ML IV (12:00)
[2024-09-12] MEDS: DEXTROSE 5% IV ×2 (12:06→12:08)
[2024-09-12] MEDS: WATER IV ×2 (12:06→12:08)
[2024-09-12] MEDS: LEUCOVORIN CALCIUM IV (12:06)
[2024-09-12] MEDS: OXALIPLATIN IV (12:08)
[2024-09-12 13:00] VITALS: BP 148/72; PULSE 70; TEMP 36.6; O2SAT 98
--- NOTE | 2024-09-12 13:53 | PC.NURSE ---
1300 Eats 100% meal. 1330 Up to bathroom, tolerates activity without any problems. 1400 Tolerating infusion without any s/s of reaction.
[2024-09-12] MEDS: FLUOROURACIL IV (14:35)
[2024-09-12] MEDS: SODIUM CHLORIDE 0.9% IV (14:35)
[2024-09-14] MEDS: HEPARIN SODIUM (PORCINE) PF LOCK FLUSH 500 UNIT/5 ML SYRINGE IV (13:00)
[2024-09-18 08:54] VITALS: BP 132/69; PULSE 82; TEMP 36.2; O2SAT 96
[2024-09-18] MEDS: ACETAMINOPHEN 500 MG TABLET 1000 MG PO (09:22)
[2024-09-18] MEDS: diphenhydrAMINE HCL 25 MG, HYDROCORTISONE SODIUM SUCC/PF 100 MG in 0.9 % SODIUM CHLORID... 307.5 MG IV (09:22)
[2024-09-18] MEDS: IRON DEXTRAN COMPLEX 100 MG/2 ML VIAL 25 MG IVP (09:45)
[2024-09-18] MEDS: SODIUM CHLORIDE 0.9% IV (11:12)
[2024-09-18] MEDS: IRON DEXTRAN COMPLEX IV (11:12)
[2024-09-18] MEDS: 0.9 % SODIUM CHLORIDE 1,000 ML 500 ML IV (11:19)
[2024-09-18] MEDS: HEPARIN SODIUM (PORCINE) PF LOCK FLUSH 500 UNIT/5 ML SYRINGE IV (14:15)
[2024-09-18 14:56] VITALS: BP 124/72; PULSE 74; TEMP 36.4; O2SAT 96
[2024-09-26 08:35] VITALS: BP 139/64; PULSE 80; TEMP 36.3; O2SAT 97
[2024-09-26 08:45] VITALS: BP 113/73; PULSE 80; TEMP 36.6; O2SAT 95
[2024-09-26 08:55] LABS: Basophils Absolute Auto 0.1 10^3/uL (0.0-0.1); Basophils Percent Auto 1.2 % (0.2-2.0); Eosinophils Absolute Auto 0.4 10^3/uL (0.0-0.7); Eosinophils Percent Auto 7.1 % (0.9-7.0); Hematocrit 32.8 % (42.0-54.0); Hemoglobin 10.8 g/dL (14.0-18.0); Immature Granulocytes Abs Auto 0.02 10^3/uL (0.00-0.03); Immature Granulocytes Pct Auto 0.3 % (0.0-0.5); Lymphocytes Absolute Auto 1.1 10^3/uL (1.2-3.8); Lymphocytes Percent Auto 19.4 % (20.5-60.0); Mean Corpuscular HGB Conc 32.9 g/dL (29.9-35.2); Mean Corpuscular Hemoglobin 26.4 pg (25.9-34.0); Mean Corpuscular Volume 80.2 fL (80.0-94.0); Mean Platelet Volume 9.1 fL (9.5-13.5); Monocytes Percent Auto 17.3 % (1.7-12.0); Neutrophils Absolute Auto 3.2 10^3/uL (1.4-6.5); Neutrophils Percent Auto 54.7 % (43.0-75.0); Platelet Count 216 10^3/uL (150-450); Red Blood Count 4.09 10^6/uL (4.70-6.10); Red Cell Distribution Width 23.4 % (11.0-15.0); White Blood Count 5.8 10^3/uL (4.0-11.0)
[2024-09-26 09:07] LABS: Alanine Aminotransferase 18 U/L (16-63); Albumin Globulin Ratio 0.7; Albumin Level 3.1 g/dL (3.4-5.0); Alkaline Phosphatase 114 U/L (46-116); Anion Gap 13.2; Aspartate Amino Transferase 19 U/L (15-37); BUN Creatinine Ratio 19.8; Bilirubin Total 0.4 mg/dL (0.2-1.0); Calcium 8.5 mg/dL (8.5-10.1); Carbon Dioxide 24.8 mmol/L (21.0-32.0); Chloride 99 mmol/L (98-107); Estimated GFR (African America >60 (>=60 mL/min/1.73m^2); Estimated GFR (Non-African Ame >60 (>=60 mL/min/1.73m^2); Globulin 4.2 g/dL; Glucose 97 mg/dL (74-106); Magnesium 2.2 mg/dL (1.8-2.4); Sodium 133 mmol/L (136-145); Total Protein 7.3 g/dL (6.4-8.2)
[2024-09-26] MEDS: PALONOSETRON HCL 0.25 MG/5 ML VIAL IV (10:16)
[2024-09-26] MEDS: DEXAMETHASONE SODIUM PHOSPHATE 10 MG in 0.9 % SODIUM CHLORIDE 100 ML 303 MG IV (10:16)
[2024-09-26] MEDS: OXALIPLATIN IV (11:08)
[2024-09-26] MEDS: DEXTROSE 5% IV (11:08)
[2024-09-26] MEDS: WATER IV (11:08)
[2024-09-26] MEDS: LEUCOVORIN CALCIUM IV (11:38)
[2024-09-26] MEDS: SODIUM CHLORIDE 0.9% IV ×2 (11:38→13:20)
[2024-09-26 13:20] VITALS: BP 110/72; PULSE 69; TEMP 36.6; O2SAT 96
[2024-09-26] MEDS: FLUOROURACIL IV (13:20)
--- NOTE | 2024-09-26 13:44 | PC.NURSE ---
0845: Pt. to [facility] amb. for chemo treatment. Weight obtained. Seated in recliner. VSS. Using sterile technique, right ant. chest port accessed without difficulty. Flushes easily with good blood return. Secured with Opsite dressing. Pt. relays pain during access only. No redness or edema to site. Assessment completed, see documentation. 1016: Pre-meds. initiated at this time. 1108: IV Oxaliplatin initiated at this time. Lunch tray ordered. 1138: IV Leucovorin initiated after peripheral IV initiated to right forearm with #22 gauge Insyte due to incompatibility with NS and Oxaliplatin. Lunch tray provided.
[2024-09-27 04:06] LABS: CEA 5.2 ng/mL (0.0-4.7)
== END 2024-09-26 23:59 | disposition home or self-care (01) ==
LOC: HEMC 07:27
PROVIDERS: Visit Provider Internal Medicine Hematology & Oncology
DX: Z51.11 Encounter for antineoplastic chemotherapy (principal); C20 Malignant neoplasm of rectum; D64.9 Anemia, unspecified; R11.2 Nausea with vomiting, unspecified; K90.9 Intestinal malabsorption, unspecified; D50.9 Iron deficiency anemia, unspecified; F17.220 Nicotine dependence, chewing tobacco, uncomplicated
CPT/HCPCS: 36591; 80053; 82378; 82728; 83540; 83550; 83735; 85025; 85652; 86140; 96365; 96366; 96367; 96368; 96375; 96376; 96413; 96415; 96416; 99211; G0463; J0640; J1100; J1200; J1642; J1720; J1750; J2469; J9190; J9263

== ENCOUNTER 2024-10-26 07:36 | Outpatient (RCR) | payer MEDICARE, SELFPAY ==
--- OUTSIDE RECORDS SUMMARY | 2024-09-28 07:39 | XMS_ITS | CCD ---
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 [facility] ([id number]) [address] [facility], [address] [place] [address] Office Visiton 06-30-2024 Follow-up visit [id number] Paul Velasquez 1950 M Date Provider Department Center 06/30/2024 Noemy-CLEM GALLARDO [facility] No family history on file Level of Service:81542 [place] OFFICE/OUTPATIENT NEW MODERATE MDM 45 MINUTES (GC) Reason for Visit and Comments: 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 Normal [facility] 06-20-2024 L Specimen: [id number] Received: 06/20/24 Status: CECILIA Garza Num: [id number] Spec Type: Surgical Subm Dr: Ning Wakefield DO Tissues: A Colon Biopsy (RECTAL MASS BX AT 5CM) Procedures: HE/4, Gross/Micro L4 Age/ Patient Sex Location Account Attending Physician Alexei Velasquez 73/M LABELL [id number] Ning Wakefield DO SPEC NUM: [id number] RECD: 06/20/24 STATUS: CECILIA GARZA NUM: [id number] ANITA: 06/20/[address] [facility] [address]: Ning Wakefield DO ENTERED: 06/20/[address]: Luana Brown SPEC TYPE: Surgical DEPT: [facility] ENTERED BY: [id number] RECV BY: [id number] ORDERED: HE/4, Gross/Micro L4 ORDERED: HE/4, Gross/Micro L4 Supplemental Report Addendum 3 Entered: 08/02/24 Supplemental for findings of consultation report from [facility] -At least intramucosal adenocarcinoma -See comment Addendum Signed (signature on file) Kristian Sánchez MD 08/02/241806 Addendum 2 Entered: 07/28/24 Supplemental for findings of summary of detected somatic alterations, immunotherapy biomarkers and associated treatment options from [address] Detected alterations/biomarkers associated FDA approved therapies clinical trial availability KRAS T50I Cetuximab, Panitumumab Yes SERGEY [id number] Olaparib, Talazoparib Yes APC E893 None Yes FBXW7 G219fs None Yes Specimen: [id number] Received: 06/20/24 Status: CECILIA Garza Num: [id number] Spec Type: Surgical Subm Dr: Ning Wakefield DO Tissues: A Colon Biopsy (RECTAL MASS BX AT 5CM) Procedures: HE/Devan, Gross/Micro L4 Patient: Alexei Velasquez [id number] (Continued) Specimen: [id number] Received: 06/20/24 (Continued) Supplemental Report (Continued) Signed (signature on file) Mumtaz Amor MD 06/22/24 1845 Specimen: [id number] Received: 06/20/24 Status: CECILIA Garza Num: [id number] Spec Type: Surgical Subm Dr: Ning Wakefield DO Tissues: A Colon Biopsy (RECTAL MASS BX AT 5CM) Procedures: HE/4, Gross/Micro L4 Patient: Alexei Velasquez [id number] (Continued) Specimen: [id number] Received: 06/20/24 (Continued) Supplemental Report (Continued) APC [id number] None Yes TP53 W91fs None Yes Note: -Also see entire report on file for detailed information Addendum Signed (signature on file)__Celeste Sánchez MD 07/28/24848 Addendum 1 Entered: 07/28/24 Supplemental for findings of PD-L1 22C3 by immunohistochemistry from [place] [address] [employer] -Combined positive score (CPS): 5 -Please also see [place] 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 Specimen: [id number] Received: 06/20/24 Status: CECILIA Kayla Num: [id number] Spec Type: Surgical Subm Dr: Ning Wakefield DO Tissues: A Colon Biopsy (RECTAL MASS BX AT 5CM) Procedures: Alverto WHYTE/Lily L4 Patient: Alexei Velasquez [id number] (Continued) Specimen: [id number] Received: 06/20/24 (Continued) Signed (signature on file) Mumtaz Amor MD 06/22/24 1845 Specimen: [id number] Received: 06/20/24 Status: CECILIA Garza Num: [id number] Spec Type: Surgical Subm Dr: Ning Wakefield, Tissues: A Colon Biopsy (more content not included)... Normal [facility] Phys[facility] CT CSPINE WO CONon 0 CT [...] by: GIBRAN WAY Date: 2020-06-04 23:44 Normal [facility] CT HEAD WO CONon 06-05-2020 [...] by: GRAHAM LINN Date: 2020-06-04 22:07 Normal [facility] XR CHEST 1 Von 06-05-2020 [...] by: GRAHAM LINN Date: 2020-06-04 22:13 Normal [facility] XR PELVIS 1_2 VIEWSon 2019 [...] by: GRAHAM LINN Date: 2020-06-04 22:16 Normal [facility] XR SHOULDER LT 2V or [...] GRAHAM LINN Date: 2020-06-04 22:15 Normal [facility] CARDIAC SHANE ADMITon 020 CK [Catalytic activity/Vol] 84 U/L Normal 55-170 [facility] Comment on above: Performed By: #### C HARINI WEST, CMADM #### [facility] [address] [place], [place] [address] Marielena Keller CK.MB [Mass/Vol] 1.08 ng/mL Normal <=2.37 [facility] Comment on above: Performed By: #### C JENNA, HARINI, CMADM #### [facility] [address] [place], [place] [address] Marielena Arianna INR Coag (Bld) [Relative time] SEE BELOW Normal [facility] Comment on above: Result Comment: <0.0 34 ng/ml NEGATIVE 0.034-0.119 INDETERMINATE 0.120 AMI CUT OFF Performed By: #### C HARINI WEST, CMADM #### [facility] [address] [place] [address] Marielena Arianna KWABENA 58.0 ng/mL Normal <=121.0 [facility] Comment on above: Performed By: #### C HARINI WEST, CMADM #### [facility] [address] [place], [place] [address] Marielena Arianna TROP <0.012 Normal <=0.034 [facility] Comment on above: Performed By: #### C JENNA, HARINI, CMADM #### [facility] [address] [place], [place] [address] Marielena Arianna CBC AUTO DIFFon 06-04-2020 Basophils (Bld) [#/Vol] 0.1 103/ul Normal 0.0-0.1 [facility] Comment on above: Performed By: #### C BC #### [facility] [address] [place], [place] [address] Marielena Arianna Basophils/100 WBC (Bld) 1.5 % Normal 0.2-2.0 [facility] Comment on above: Performed By: #### C BC #### [facility] [address] [place], [place] [address] Marielena Arianna Eosinophils (Bld) [#/Vol] 0.1 103/ul Normal 0.0-0.7 [facility] Comment on above: Performed By: #### C BC #### [facility] [address] [place] [address] Marielena Arianna Eosinophils/100 WBC (Bld) 2.6 % Normal 0.9-7.0 [facility] Comment on above: Performed By: #### C BC #### [facility] [address] [place] [address] Marielena Arianna Erythrocyte distribution width (RBC) [Ratio] 13.3 % Normal 11.0-15.0 [facility] Comment on above: Performed By: #### C BC #### [facility] [address] [place] [address] Marielena Arianna Hematocrit (Bld) [Volume fraction] 39.5 % Critically low 42.0-54.0 [facility] Comment on above: Performed By: #### C BC #### [facility] [address] [place] [address] Marielena Arianna Hemoglobin (Bld) [Mass/Vol] 13.3 g/dL Critically low 14.0-18.0 [facility] Comment on above: Performed By: #### C BC #### [facility] [address] [place] [address] Marielena Arianna IG # 0.02 10e3/ul Normal 0.00-0.03 [facility] Comment on above: Performed By: #### C BC #### [facility] [address] [place] [address] Marielena Arianna IG % 0.4 % Normal 0.0-0.5 [facility] Comment on above: Performed By: #### C BC #### [facility] [address] [place] [address] Marielena Arianna Lymphocytes (Bld) [#/Vol] 1.7 103/ul Normal 1.2-3.8 [facility] Comment on above: Performed By: #### C BC #### [facility] [address] [place] [address] Marielena Arianna Lymphocytes/100 WBC (Bld) 38.0 % Normal 20.5-60.0 [facility] Comment on above: Performed By: #### C BC #### [facility] [address] [place], [place] [address] Marielena Keller MANUAL DIFF REQ NO Normal [facility] Comment on above: Performed By: #### C BC #### [facility] [address] [place], [place] [address] Marielena Arianna MCH (RBC) [Entitic mass] 32.1 pg Normal 25.9-34.0 [facility] Comment on above: Performed By: #### C BC #### [facility] [address] [place], [place] [address] Marielenaemma Zafaren MCHC (RBC) [Mass/Vol] 33.7 g/dL Normal 29.9-35.2 [facility] Comment on above: Performed By: #### C BC #### [facility] [address] [place], [place] [address] Marielenaemma Zafaren MCV (RBC) [Entitic vol] 95.4 fL Critically high 80.0-94.0 [facility] Comment on above: Performed By: #### C BC #### [facility] [address] [place] [address] Marielena Arianna Monocytes (Bld) [#/Vol] 0.6 103/ul Normal 0.3-0.8 [facility] Comment on above: Performed By: #### C BC #### [facility] [address] [place] [address] Marielena Arianna Monocytes/100 WBC (Bld) 13.7 % Critically high 1.7-12.0 [facility] Comment on above: Performed By: #### C BC #### [facility] [address] [place], [place] [address] Marielena Arianna Neutrophils (Bld) [#/Vol] 2.0 103/ul Normal 1.4-6.5 [facility] Comment on above: Performed By: #### C BC #### [facility] [address] [place], [place] [address] Marielena Arianna Neutrophils/100 WBC (Bld) 43.8 % Normal 43.0-75.0 [facility] Comment on above: Performed By: #### C BC #### [facility] [address] [place], [place] [address] Marielena Keller Platelet mean volume (Bld) [Entitic vol] 10.4 fL Normal 9.5-13.5 [facility] Comment on above: Performed By: #### C BC #### [facility] [address] [place], [place] [address] Marielenaemma Keller Platelets (Bld) [#/Vol] 141 103/ul Critically low 150-450 [facility] Comment on above: Performed By: #### C BC #### [facility] [address] [place], [place] [address] Marielenaemma Keller RBC (Bld) [#/Vol] 4.14 106/ul Critically low 4.70-6.10 [facility] Comment on above: Performed By: #### C BC #### [facility] [address] [place] [address] Marielenaemma Keller WBC (Bld) [#/Vol] 4.5 103/ul Normal 4.0-11.0 [facility] Comment on above: Performed By: #### C BC #### [facility] [address] [place], [place] [address] Marielenaemma Keller ETHANOL (BLD ALC)on 06-04-20 20 Ethanol [Mass/Vol] NOTE: 80 mg/dl is the legal limit for a blood alcohol level Normal [facility] Comment on above: Performed By: #### C HARINI WEST CMADM #### [facility] [address] [place] [address] Marielenaemma Keller Ethanol [Mass/Vol] 347 mg/dL Normal [facility] Comment on above: Performed By: #### C HARINI WEST CMADM #### [facility] [address] [place], [place] [address] Marielena Arianna PROF 14(COMP METB)on 020 Albumin [Mass/Vol] 3.5 g/dL Normal 3.5-5.0 [facility] Comment on above: Performed By: #### C MP, ETH, CMADM #### [facility] [address] [place], [place] [address] Marielena Arianna Albumin/Globulin [Mass ratio] 0.9 {ratio} Normal [facility] Comment on above: Performed By: #### C MP, ETH, CMADM #### [facility] [address] [place], [place] [address] Marielena Arianna ALP [Catalytic activity/Vol] 54 U/L Normal 38-126 [facility] Comment on above: Performed By: #### C MP, ETH, CMADM #### [facility] [address] [place], [place] [address] Marielena Arianna ALT [Catalytic activity/Vol] 109 U/L Critically high 21-72 [facility] Comment on above: Performed By: #### C MP, ETH, CMADM #### [facility] [address] [place] [id number] Marielena Arianna Anion gap [Moles/Vol] 14.5 mmol/L Normal [facility] Comment on above: Performed By: #### C MP, ETH, CMADM #### [facility] [address] [place] [phone] Marielena Arianna AST [Catalytic activity/Vol] 128 U/L Critically high 17-59 [facility] Comment on above: Performed By: #### C MP, ETH, CMADM #### [facility] [address] [place], [place] [address] Marielena Arianna Bilirubin Ql (U) 0.3 mg/dL Normal 0.2-1.3 [facility] Comment on above: Performed By: #### C MP, ETH, CMADM #### [facility] [address] [place], [place] [address] Marielena Arianna Calcium [Mass/Vol] 8.5 mg/dL Normal 8.4-10.2 [facility] Comment on above: Performed By: #### C MP, ETH, CMADM #### [facility] [address] [place] [phone] Marielena Arianna Chloride [Moles/Vol] 102 mmol/L Normal 98-107 [facility] Comment on above: Performed By: #### C MP, ETH, CMADM #### [facility] [address] [place] [address] Marielena Arianna CO2 [Moles/Vol] 25.2 mmol/L Normal 22.0-30.0 [facility] Comment on above: Performed By: #### C MP, ETH, CMADM #### [facility] [address] [place] [address] Marielena Arianna Creatinine [Mass/Vol] 0.87 mg/dL Normal 0.66-1.25 [facility] Comment on above: Performed By: #### C MP, ETH, CMADM #### [facility] [address] [place] [address] Marielena Arianna EGFR-AF BARBADIAN >60 Normal >=60 [facility] Comment on above: Performed By: #### C MP, ETH, CMADM #### [facility] [address] [place] [address] Marielena Arianna EGFR-NON AF BARBADIAN >60 Normal >=60 [facility] Comment on above: Performed By: #### C MP, ETH, CMADM #### [facility] [address] [place] [address] Marielena Arianna Globulin (S) [Mass/Vol] 3.7 g/dL Normal [facility] Comment on above: Performed By: #### C MP, ETH, CMADM #### [facility] [address] [place] [address] Marielena Arianna Glucose [Mass/Vol] 107 mg/dL Critically high 74-106 [facility] Comment on above: Performed By: #### C MP, ETH, CMADM #### [facility] [address] [place] [address] Marielnea Arianna Potassium [Moles/Vol] 3.7 mmol/L Normal 3.4-5.0 [facility] Comment on above: Performed By: #### C MP, ETH, CMADM #### [facility] [address] [place] [address] Marielena Arianna Protein [Mass/Vol] 7.2 g/dL Normal 6.1-8.2 [facility] Comment on above: Performed By: #### C JENNA, HARINI, CMADM #### [facility] [address] [place], [place] [address] Marielena Arianna Sodium [Moles/Vol] 138 mmol/L Normal 137-145 [facility] Comment on above: Performed By: #### C JENNA, ETH, CMADM #### [facility] [address] [place], [place] [address] Marielena Arianna Urea nitrogen [Mass/Vol] 11.0 mg/dL Normal 9.0-20.0 [facility] Comment on above: Performed By: #### C JENNA, HARINI, CMADM #### [facility] [address] [place], [place] [address] Marielena Arianna Urea nitrogen/Creatini ne [Mass ratio] 12.6 mg/mg Normal [facility] Comment on above: Performed By: #### C JENNA, HARINI, CMADM #### [facility] [address] [place], [place] [address] Marielena Arianna Vital Signs Date Time Vital Sign Value Performing Clinician Facility 08-15-2024 13:31-0500 Blood Pressure Location Pranay CITLALLIL [facility] 08-15-2024 13:31-0500 Diastolic blood pressure 74 mm[Hg] Pranay LENNONL [facility] 08-15-2024 13:31-0500 Heart rate 72 /min Pranay NILL [facility] 08-15-2024 13:31-0500 Respiratory rate 16 /min Pranay NILL [facility] 08-15-2024 13:31-0500 Systolic blood pressure 126 mm[Hg] Pranay NILL [facility] 07-26-2024 13:02-0400 Body height 170.18 cm [facility] Dept Work Phone: [facility] 07-26-2024 13:02-0400 Body mass index (BMI) [Ratio] 30.2 kg/m2 [employer] Dept Work Phone: [facility] 07-26-2024 13:02-0400 Body weight 87.54 kg [employer] Dept Work Phone: [facility] 07-26-2024 13:02-0400 Diastolic blood pressure 98 mm[Hg] [employer] Dept Work Phone: [facility] 07-26-2024 13:02-0400 Respiratory rate 16 /min [employer] Dept Work Phone: [facility] 07-26-2024 13:02-0400 SaO2% (BldA) [Mass fraction] 98 % [employer] Dept Work Phone: [facility] 07-26-2024 13:02-0400 Systolic blood pressure 169 mm[Hg] [facility] Dept Work Phone: [facility] 07-25-2024 14:27-0400 Body height 177.8 cm Pm 2 [facility] 07-25-2024 14:27-0400 Body mass index (BMI) [Ratio] 27.98 kg/m2 [facility] 07-25-2024 14:27-0400 Body weight 88.45 kg Pm 2 [facility] 06-28-2024 08:14-0400 Body height 177.8 cm [employer] Work Phone: [facility] 06-28-2024 08:14-0400 Body mass index (BMI) [Ratio] 27.55 kg/m2 [employer] Work Phone: [facility] 06-28-2024 08:14-0400 Body weight 87.09 kg [employer] Work Phone: [facility] 06-28-2024 08:14-0400 Diastolic blood pressure 84 mm[Hg] Ning Nicol DO Work Phone: [facility] 06-28-2024 08:14-0400 Heart rate 85 /min Ning Wakefield DO Work Phone: [facility] 06-28-2024 08:14-0400 Respiratory rate 18 /min Ning Wakefield DO Work Phone: [facility] 06-28-2024 08:14-0400 SaO2% (BldA) [Mass fraction] 98 % Ning Wakefield DO Work Phone: [facility] 06-28-2024 08:14-0400 Systolic blood pressure 138 mm[Hg] Ning Wakefield DO Work Phone: [facility] 06-05-2024 10:43-0400 Body height 177.8 cm Ning Wakefield DO Work Phone: [facility] 06-05-2024 10:43-0400 Body mass index (BMI) [Ratio] 27.55 kg/m2 Ning Wakefield DO Work Phone: [facility] 06-05-2024 10:43-0400 Body weight 87.09 kg Ning Wakefield DO Work Phone: [facility] 06-05-2024 10:43-0400 Diastolic blood pressure 84 mm[Hg] Ning Wakefield DO Work Phone: [facility] 06-05-2024 10:43-0400 Heart rate 72 /min Ning Wakefield DO Work Phone: [facility] 06-05-2024 10:43-0400 Respiratory rate 20 /min Ning Wakefield DO Work Phone: [facility] 06-05-2024 10:43-0400 SaO2% (BldA) [Mass fraction] 99 % Ning Wakefield DO Work Phone: [facility] 06-05-2024 10:43-0400 Systolic blood pressure 142 mm[Hg] Ning Erwinett DO Work Phone: [facility] 12-07-2018 16:37-0400 Body height 177.8 cm Chelsy Rosales CNP Work Phone: [facility] Work Phone: 12-07-2018 16:37-0400 Body mass index (BMI) [Ratio] 25.9 kg/m2 Chelsy Rosales CNP Work Phone: [facility] Work Phone: 12-07-2018 16:37-0400 Body surface area Derived from formula 2 m2 Chelsy Rosales CNP Work Phone: [facility] Work Phone: 12-07-2018 16:37-0400 Body temperature 96.6 [degF] Chelsy Rosales CNP Work Phone: [facility] Work Phone: 12-07-2018 16:37-0400 Body weight 81.76 kg Chelsy Rosales CNP Work Phone: [facility] Work Phone: 12-07-2018 16:37-0400 Diastolic blood pressure 80 mm[Hg] Chelsy Rosales CNP Work Phone: [facility] Work Phone: 12-07-2018 16:37-0400 Heart rate 54 /min Chelsy Rosales CNP Work Phone: [facility] Work Phone: 12-07-2018 16:37-0400 SaO2% (BldA) [Mass fraction] 98 % Chelsy Rosales CNP Work Phone: [facility] Work Phone: 12-07-2018 16:37-0400 Systolic blood pressure 130 mm[Hg] Chelsy Rosales CNP Work Phone: [facility] Work Phone: Encounters Encounter Date Encounter Type Care Provider Facility Start: 09-06-2024 End: 09-06-2024 ambulatory [facility] Facility: Kevin Start: 09-05-2024 ambulatory Angelina Tomlinson Faci lity:[facility] Start: 08-30-2024 End: 08-30-2024 ambulatory AIMEE FRANCISCO Facility:CD:[id number] Start: 08-17-2024 Registered [facility] Work Phone: Start: 08-17-2024 End: 08-17-2024 ambulatory [facility] Work Phone: [facility] Work Phone: Start: 08-17-2024 End: 08-17-2024 Patient encounter procedure [facility] Work Phone: [facility] Work Phone: Start: 08-15-2024 End: 08-15-2024 ambulatory AIMEE SINGH Facility: Kevin Start: 08-15-2024 End: 08-15-2024 Patient encounter procedure Pranay ADAMSON [facility] Start: 08-10-2024 ambulatory AIMEE SINGH Facility : Kevin Start: 08-03-2024 End: 08-03-2024 ambulatory AIMEE FRANCISCO [facility] Start: 08-02-2024 End: 08-02-2024 ambulatory DELMA BROWN [facility] Start: 07-26-2024 Registered [facility] Work Phone: Start: 07-26-2024 End: 07-26-2024 ambulatory [facility] Work Phone: [facility] Work Phone: Start: 07-26-2024 End: 07-26-2024 Patient encounter procedure Norris [employer] [facility] Work Phone: [facility] Work Phone: Start: 07-25-2024 Encounter for other preprocedural examination RAFFI TORRES [facility] Start: 07-25-2024 End: 07-25-2024 Patient encounter procedure Pmh Pre-Admission Testing 2 [facility] - Pre Admit Start: 07-25-2024 End: 07-25-2024 ambulatory CAMMIE KRUSE [facility] Start: 07-25-2024 End: 07-25-2024 ambulatory GRAHAM GLEZ [facility] Start: 06-30-2024 End: 06-30-2024 [facility] Start: 06-28-2024 End: 06-28-2024 Bamboo flowsheet [...] Start: 06-20-2024 End: 06-20-2024 ambulatory Ning Wakefield [facility] Work Phone: Start: 06-20-2024 End: 06-20-2024 Departed Referred DO Ning Wakefield Work Phone: [facility] Start: 06-05-2024 End: 06-05-2024 Bamboo flowsheet Ning Wakefield DO Work Phone: [facility] Start: 06-05-2024 End: 06-05-2024 Bamboo flowsheet Ning Wakefield DO Work Phone: [facility] Start: 06-05-2024 End: 06-05-2024 ambulatory NING WAKEFIELD Not Available Start: 06-05-2024 End: 06-05-2024 Office outpatient new 45 minutes Ning Wakefield DO Work Phone: [facility] [employer] [facility] Comment on above: Encounter for diagno stic colonoscopy due to change in bowel habits (Primary Dx) Start: 06-05-2020 End: 06-05-2020 Patient encounter procedure DOCTOR MIS Facility: Start: 04-25-2019 End: 04-26-2019 Emergency department patient visit KAMALJIT J [facility] Start: 12-07-2018 End: 12-07-2018 FQHC visit new patient Wendi Katz SONIYA Work Phone: [facility] Work Phone: Procedures Date Procedure Procedure Detail Performing Clinician Start: 01-07-2022 Adult depression scr eening assessment Pmh 2 Start: 12-07-2018 HYPERTENSION (SYSTEMIC) Chelsy Rosales FISH CULTURIST Work Phone: Start: 12-07-2018 Operative procedure on ankle Chelsy Rosales FISH CULTURIST Work Phone: Start: 12-07-2018 Operative procedure on hand Chelsy Rosales FISH CULTURIST Work Phone: Start: 12-07-2018 Surgical procedure Cynt hia Connie FISH CULTURIST Work Phone: Angiography Pranay NILL Closed fracture of a nkle (disorder) Pranay NILL Closed fracture of l eft wrist (disorder) Pranay NILL Colonoscopy Pranay NILL Colonoscopy Pranay NILL Extraction of cataract Rex jin NILL Plan of Treatment Date Care Activity Detail Author Start: 06-04-2030 DTaP,Tdap and Td Vaccines (4 - Td or Tdap) DTaP,Tdap and Td Vaccines (4 - Td or Tdap) [facility] Start: 07-25-2025 Adult BMI Screening Adult BMI Screen ing [facility] Start: 07-25-2025 Tobacco Screening Tobacco Screening [facility] Start: 07-28-2024 End: 07-28-2024 Admission to same day surgery center 07/28/2024 9:00 AM EDT - 07/28/2024 10:00 AM EDT Surgery [facility] [address] [place] [id number] Cammie Kruse MD [address], [address] [place] [address] INSERTION PORT A CATH-MEDI PORT FOR CHEMO [24113 (CPT )] [facility] Comment on above: INSERTION PORT A CAT H-MEDI PORT FOR CHEMO [50733 (CPT )] Start: 07-28-2024 End: 07-28-2024 Anesthesia consultation 07/28/2024 9:00 AM EDT Anesthesia Event [facility] [address] [place] [id number] Ruperto Ponce, DO [address] [facility] [place] [address] [facility] Start: 07-28-2024 End: 07-28-2024 Insj tunneled ctr vad w/subq port age 3 yr/> INSERTION PORT A CATH Malignant neoplasm of rectum (CMS-HCC) Encounter for therapeutic drug monitoring 07/28/2024 9:00 AM EDT [facility] Start: 07-28-2024 Subsequent hospital visit by physician 07/28/2024 9:00 AM EDT Hospital Encounter [facility] [address] [place] [id number] Cammie Kruse MD [address], [address] [address] [facility] - Surgery Start: 06-28-2024 End: 06-28-2025 Creatine Creatine Lab Routine Adenocarcinoma of rectum (HCC) (CMS/HCC) Expected: 06/28/2024 (Approximate), Expires: 06/28/2025 [facility] Comment on above: Expected: 06/28/2024 (Approximate), Expires: 06/28/2025 Start: 06-28-2024 End: 06-28-2025 CT CHEST ABDOMEN PELVIS W IV CONTRAST CT CHEST ABDOMEN PELVIS W IV CONTRAST Imaging Routine Adenocarcinoma of rectum (HCC) (CMS/HCC) Expected: 06/28/2024, Expires: 06/28/2025 [facility] Work Phone: Comment on above: Expected: 06/28/2024 , Expires: 06/28/2025 Start: 06-28-2024 End: 06-28-2025 MR Pelvis WO and W contrast IV MR pelvis w and wo contrast Imaging Routine Adenocarcinoma of rectum (HCC) (CMS/HCC) Expected: 06/28/2024, Expires: 06/28/2025 [facility] Comment on above: Expected: 06/28/2024 , Expires: 06/28/2025 Start: 06-28-2024 End: 06-28-2024 Patient encounter procedure 06/28/2024 8:15 AM EDT Office Visit BERNARD ESPINOZA [address] [place] [address] Ning Wakefield DO [address] [place] [address] Arrived BERNARD ESPINOZA Comment on above: Arrived Start: 05-28-2024 COVID-19 Vaccine ( season) COVID-19 Vaccine ( season) [facility] Start: 05-28-2024 Influenza vaccination Influenza Vacc ine [facility] Start: 01-07-2023 Depression Screening Depression Scre ening [facility] Start: 2013 Fall Risk Screening Fall Risk Screen ing [facility] Start: 1967 Administration of varicella zoster vaccine Zoster (Shingles) Vaccine (1 of 2) [facility] Start: 1950 Tobacco Counseling Tobacco Counselin marlen [facility] Immunizations Immunization Date Immunization Notes Care Provider Noemy enriquez 06-27-2021 SARS-CoV-2 (COVID-19 ) mRNA BNT-162b2 [facility] Comment on above: Result Comment: 2023: [id number] 06-27-2021 influenza virus vaccine, unspecified formulation [facility] 2 [facility] 01-03-2021 SARS-CoV-2 (COVID-19 ) mRNA BNT-162b2 [facility] 12-13-2020 SARS-CoV-2 (COVID-19 ) mRNA BNT-162b2 [facility] 04-16-2018 tetanus toxoid, redu mary jo diphtheria toxoid, and acellular pertussis vaccine, adsorbed [facility] 2 [facility] 07-08-2017 influenza, high dose seasonal, preservative-free DO Ning Wakefield Work Phone: [facility] 06-07-2017 tetanus toxoid, redu mary jo diphtheria toxoid, and acellular pertussis vaccine, adsorbed DO Ning Wakefield Work Phone: [facility] Payers Date Payer Category Payer Self-pay [id number] 2022 Medicare [employer] [id number] 2022-Present [address] [place] [address] [id number] 2022 Medicare O [employer] [id number] 2022 Medicare [id number] 1959 Unknown [id number] 1948 Unknown [id number] 1948 Unknown [id number] [id number] 1948 Unknown [id number] [id number] 1948 Unknown [id number] [id number] 1948 Unknown [id number] [id number] 1948 Unknown [id number] 2.16.840.1.470552.3.579.2.1286 1948 Unknown [id number] 2.16.840.1.585634.3.579.2.1286 1948 Unknown [id number] 2.16.840.1.827086.3.579.2.1286 1948 Unknown [id number] 2.16.840.1.875792.3.579.2.727 1948 Unknown [id number] [id number] 1948 Unknown [id number] [id number] Medicare 1 - Medicare [facility] CGS PPS 2V [id number] [id number] 9.5.10.6.3 Medicare Medicare [id number] Unknown [facility] [id number] Unknown [id number] [id number] Unknown [id number] [id number] Social History Date Type Detail Facility Assertion Finding of alcoh ol intake (finding) [facility] Work Phone: Assertion Gender identity finding (finding) [facility] Work Phone: Assertion Heterosexual (finding) [facility] Work Phone: Assertion [facility] Assertion Finding of sexua l orientation (finding) [facility] Work Phone: Tobacco smoking status Unknown if ever smoked [facility] Start: 08-11-2017 End: 08-11-2017 Tobacco smoking status NHIS Never smoked tobacco (finding) [facility] Start: 1950 Sex Assigned At Male [facility] Start: 1950 Sex assigned at Not on file [facility] Start: 11-07-2020 End: 07-25-2024 Gender identity Not on file [email or web address] Start: 12-23-2022 Tobacco use and exposure User of smokeless tobacco [facility] History of tobacco use Chews Tobacco [facility] Start: 07-25-2024 Alcoholic beverage intake Current drinker of alcohol (finding) [email or web address] Start: 11-07-2020 End: 07-25-2024 Alcoholic beverage intake [facility] Start: 07-25-2024 Alcohol Comment beer daily, 2- 4 cans per day and some occassional shots of whiskey [facility] Start: 11-02-2015 End: 08-17-2024 Sex Male (finding) [facility] NEGATED: Highlighted row Assertion Exposure to pollution (event) [facility] Work Phone: NEGATED: Highlighted row Assertion Tobacco user (finding) [facility] Work Phone: NEGATED: Highlighted row Assertion Finding relating to drug misuse behavior (finding) [facility] Work Phone: Medical Equipment Procedure Code [...] 06-25-2017 Lens Iol Ultrase rt 17.0d - [id number] - [id number] Start: 06-29-2023 Lens Iol Ultrase rt 18.5d - [id number] - [id number] Start: 07-13-2023 Goals Date Patient Goal Desired Activity /State Personal health goal Comment on above: Formatting of this n ote might be different from the original. Evaluation of progress towards goal: Safe transition from hospital to home. Functional Status Date Assessment Result Facility 08-15-2024 Functional Status N/A [facility] Notes 06-05-2024 to 08-15-2024 Note Date & Type Note Facility 08-15-2024 Note General Surgery Offi ce/Clinic Note Chief Complaint consultation for port placement HPI Staff 74 year old male presents on consultation from Dr. Singh for port placement. Patient diagnosed with rectal adenocarcinoma. Patient on Eliquis for a.fib. Plan to start chemo 12/3. History of Present Illness 74 yo male with h/o atrial fibrillation, on Eliquis, htn, hypercholesterolemia, [place], recently diagnosed with advanced rectal cancer, referred for [id number]-r-[id number] for chemotherapy; no h/o previous port or [...] rectum (C20: Malignant neoplasm of rectum) plan [id number] insertion under general anesthesia, informed consent obtained. [...] mRNA BNT-162b2 vax 12/13/2020 Recorded [facility] Comment on above: Result Comment: Elec tronically Signed By: Pranay ADAMSON MDDate and Time Signed: 08/15/24 14:12 EST 08-03-2024 Note Patient: Alexei colindres Procedure Summary Date: 08/03/24 Room / Location: [facility] Anesthesia Start: 1215 Anesthesia Stop: 1303 [...] per anesthesia protocol. No notable events documented. [facility] 08-03-2024 Note Patient: Alexei colindres Procedure Summary Date: 08/03/24 Room / Location: [facility] Anesthesia Start: 5 Anesthesia Stop: Procedure: ENDOSCOPIC ULTRASOUND (LOWER) Diagnosis: Rectal mass Scheduled Providers: Clem Gallardo MD; Fredrick Domínguez MD; LUISA Martin Responsible Provider: Fredrick Domínguez MD Anesthesia Type: MAC ASA Status: 3 Anesthesia Post Transport [facility]: room air Patient Monitor: direct observation Transport: uneventful Patient condition is: stable [facility] 08-03-2024 Note Patient: Alexei colindres Procedure Information Date/Time: 08/03/24 1230 Scheduled providers: Clem Gallardo MD; Fredrick Domínguez MD; LUISA Martin Procedure: ENDOSCOPIC ULTRASOUND (LOWER) Location: [facility] Relevant Problems Anesthesia (within normal limits) [...] Plan discussed with CAA. Additional Equipment Requests [facility] 08-02-2024 Note Subjective Patient ID: Alexei [...] No follow-ups on file. Elkin Shepard, MS3 [facility] 07-26-2024 Evaluation note Diagnosis Onset Date Resolution Adenocarcinoma of rectum acute July 26, 2024 12:38pm Adenocarcinoma of rectum acute August 17, 2024 9:17am [facility] Work Phone: [phone] 395-589610-29-2024 Instructions* Patient Instructions* Casi Centeno RN - 07/25/2024 2:15 PM EDT Preoperative Education Checklist- General Surgery date: 07/28/24 Surgery time: 0900 a.m. Arrival time: 0700 a.m. 1. Bring a photo ID and your insurance card with you the day of surgery. You will check in at the main lobby of the [facility]- registration desk is straight ahead as soon as you walk in. Tell them you are here for surgery. 2. If you have a Living Will/Durable Power of Suspect Artist Supervisor for Health Care that is not on [...] after you have bathed. 5. NO nail malawian/acrylic on at least one finger. If you are having a hand, wrist or foot surgery then all nail malawian and artificial/acrylic nails must be removed from [...] please call the Preadmission Testing office at [phone], Mon.-Fri. 7 a.m.-3 p.m. Leave a voicemail [...] appointment with your doctor. [facility] Miscellaneous Notes* Perioperative Nursing Note - Casi Centeno RN - 07/25/2024 2:15 PM EDT Preoperative Education Checklist- General Surgery date: 07/28/24 Surgery time: 0900 a.m. Arrival time: 0700 a.m. 1. Bring a photo ID and your insurance card with you the day of surgery. You will check in at the main lobby of the [facility]- registration desk is straight ahead as soon as you walk in. Tell them you are here for surgery. 2. If you have a Living Will/Durable Power of Suspect Artist Supervisor for Health Care that is not on [...] after you have bathed. 5. NO nail malawian/acrylic on at least one finger. If you are having a hand, wrist or foot surgery then all nail malawian and artificial/acrylic nails must be removed from [...] please call the Preadmission Testing office at [phone], Mon.-Fri. 7 a.m.-3 p.m. Leave a voicemail [...] reviewed. Patient verbalized understanding. [facility] Nurse Note* Perioperative Nursing Note - Casi Centeno RN - 07/25/2024 2:15 PM EDT Preoperative Education Checklist- General Surgery date: 07/28/24 Surgery time: 0900 a.m. Arrival time: 0700 a.m. 1. Bring a photo ID and your insurance card with you the day of surgery. You will check in at the main lobby of the [facility]- registration desk is straight ahead as soon as you walk in. Tell them you are here for surgery. 2. If you have a Living Will/Durable Power of Suspect Artist Supervisor for Health Care that is not on [...] after you have bathed. 5. NO nail malawian/acrylic on at least one finger. If you are having a hand, wrist or foot surgery then all nail malawian and artificial/acrylic nails must be removed from [...] please call the Preadmission Testing office at [phone], Mon.-Fri. 7 a.m.-3 p.m. Leave a voicemail [...] the follow-up appointment with your doctor. [facility]10-29-2024 Nurse Note* Perioperative Nursing Note - Casi Centeno RN - 07/25/2024 2:15 PM EDT Hibiclens and surgical instructions reviewed. Patient verbalized understanding. [email or web address] [id number] Note Attestation signed by Clem Gallardo MD at 07/03/2024 9:36 AM I personally saw and examined the patient on the same date of service as resident/fellow . I discussed the findings and therapeutic plan with the resident/fellow . I agree with the documentation. [facility] Gastroenterology New Patient Visit - History & Physical CHIEF COMPLAINT Chief Complaint Patient presents with New Patient adenocarcinoma of rectum HISTORY OF PRESENT ILLNESS: Alexei Velasquez is a 73 y.o. male has hx of a-fib for that patient is on eliquis, essential hypertension who recently had ER visit for hematochezia. Patient followed up with the GI at [facility] where he underwent colonoscopy which revealed rectal [...] PROT B12/Folate/Iron studies: No results found for: [id number] , FOLATE , IRON , TIBC , UIBC , IRONSAT , FERRITIN Viral Hepatitis No results found for: HEPAIGM , HAV , HEPBSAG , HEPBSAB , HEPBEAB , HEPBIGM , HEPBCAB , HEPBCOREAB , HBVNAT , HCVSCR , HEPCAB , HCVNAT , HCVPCR , HCVTMA Liver Workup No results found for: JENNIFER , SMOOTHMUSCAB , CERULOPLSM , [id number] , TTGA , IGA , TSH , FREET4 , AFP Pancreatitis No results found for: AMYLASE , LIPASE , TRIG , CALCIUM ASSESSMENT AND PLAN: Alexei Velasquez is a 73 y.o. male has hx of a-fib for that patient is on eliquis, essential hypertension who recently had ER visit for hematochezia. Patient followed up with the GI at [facility] where he underwent colonoscopy which revealed rectal [...] No complaints at t (more content not included)...[facility]10-02-2024 History of Present illness Narrative* Ning [...] Tobacco Use: High Risk (07/13/2023) Received from [email or web address] Patient History Smoking Tobacco Use: Never Smokeless Tobacco Use: Current Passive Exposure: Not on file Alcohol Use: Not on file Depression: Not at risk (01/07/2022) Received from [email or web address] PHQ-2 Total Score: 2 Physical Activity: Not [...] Information Document Information Other: Other PATHOLOGY REPORT [facility] 06/20/2024 00:00 Attached To: Alexei Velasquez Source [...] you, Essence Wakefield DO documented in this encounterRusk Rehabilitation [id number] History of Present illness Narrative* Ning Wakefield DO - 06/05/2024 10:30 AM EDT General Surgery H&P Alexei Velasquez 1950 Alexei Velasquez is a 73 y.o. male presents with chief complaint of Colonoscopy (Pt presents today for a colonoscopy. Pt states that he has never had a colonoscopy before. Pt states that he went to [facility] on 05/15 for rectal bleeding and constipation. He states that they prescribed Colace and he is still taking it and he believes it is helping. Pt gave his VIS sheet from [facility] and it states that they saw a rectal mass. ) Denies abdominal pain. Denies family hx of colon cancer. +Denies hematochezia. Denies hx of unplanned weight loss. Denies fevers, chills, or sweats. Denies nausea or vomiting. On eliquis for A fib. SUBJECTIVE: MEDICATIONS: ALLERGIES Current Outpatient Medications Medication [...] Tobacco Use: High Risk (07/13/2023) Received from [email or web address] Patient History Smoking Tobacco Use: Never Smokeless Tobacco Use: Current Passive Exposure: Not on file Alcohol Use: Not on file Depression: Not at risk (01/07/2022) Received from [email or web address] PHQ-2 Total Score: 2 Physical Activity: Not on file REVIEW OF SYMPTOMS: Review of Systems All other systems reviewed and are negative. 10 systems were reviewed. Positives noted above. Remainder are negative per CMS guidelines. OBJECTIVE: Visit Vitals BP 142/84 Pulse 72 Resp 20 Ht 5' 10 Wt 192 lb SpO2 99% BMI 27.55 kg/m BSA 2.07 m Physical Exam Vitals reviewed. General: AAOx3, NAD Head: atraumatic normocephalic Neck: trachea midline. No masses or lymphadenopathy Heart: Regular rate and rhythm Lungs: equal chest rise and fall, non labored breathing Abdomen: soft, nontender, and non distended Ext: motor 5/5 all extremities with no gross deformities Psych: alert and oriented, behavior appropriate ASSESSMENT AND PLAN: Assessment/Plan Diagnoses and all orders for this visit: Encounter for diagnostic colonoscopy due to change in bowel habits Plan: Patient is increased risk for colon cancer. Colonoscopy can be scheduled electively. Patient informed of the risks of procedure which include but not limited to bleeding, perforation, and risks of anesthesia. Patient understood risks and signed informed consent for the procedure under monitored anesthesia care. Handout for bowel prep provided in clinic. Patient was informed of the need for a ridehome from the hospital and the need for someone to be with them for the following 24 hrs post procedure. Thank you, Essence Wakefield DO documented in this encounterNOMI HealthcareEvaluation + Plan note No data available for this section [facility] Evaluation note Assessments not supported for this document type No Assessments [facility] Work Phone: Evaluation noteNo assessment information available [facility] Work Phone: Evaluation note* Diagnosis Adenocarcinoma of rectum (HCC) (CMS/HCC)- Primary documented in this encounter [facility]* Diagnosis Onset Date Resolution Status Adenocarcinoma of rectum acu te [facility] Work Phone: Evaluation note* Diagnosis Encounter for diagnostic colonoscopy due to change in bowel habits- Primary documented in this encounter [facility] HealthcareHistory of Present illness Narrative History of Present Illness not supported for this document type No History of Present Illness [facility] Work Phone: Hospital Discharge instructions No data available for this section [facility] Instructions Instructions not supported for this document type No Instructions [facility] Work Phone: patient problem outcome Narrative Includes: Evaluations & Outcomes for active Goals No Outcomes [facility] Work Phone: progress note No data available for this section [facility] Reason for referral (narrative)* Consultation (Routine) - Pending Review Specialty Diagnoses / Procedures Referred By Contac t Referred To Contact Oncology Diagnoses Adenocarcinoma of rectum (HCC) (CMS/HCC) Procedures [place] OFFICE/OUTPATIENT NEW HIGH MDM 60 MINUTES Ning Wakefield, [address] [place] [address] Aimee Singh MD [address] [place] [address] Referral ID Status Reason Start Date Expiration Date Visits Requested Visits Authorized [id number] Pending Review Specialty Services Required 06/28/2024 12/25/2024 1 1 * Imaging (Routine) - Pending Review Specialty Diagnoses / Procedures Referred By Contac t Referred To Contact Radiology Diagnoses Adenocarcinoma of rectum (HCC) (CMS/HCC) Procedures MR pelvis w and wo contrast Ning Wakefield, [address] [facility] [address] [place] [address] [facility] [address] [place] [address] Referral ID Status Reason Start Date Expiration Date V isits Requested Visits Authorized [id number] Pending Review 06/28/2024 12/25/2024 1 1 * Imaging (Routine) - Pending Review Specialty Diagnoses / Procedures Referred By Contac t Referred To Contact Radiology Diagnoses Adenocarcinoma of rectum (HCC) (CMS/HCC) Procedures CT CHEST ABDOMEN PELVIS W IV CONTRAST Ning Wakefield, [address] [place] [id number] [place] [address] Referral ID Status Reason Start Date Expiration Date V isits Requested Visits Authorized [id number] Pending Review 06/28/2024 12/25/2024 1 1 [facility] Narrative - Reported Review of Systems not supported for this document type No Review of Systems [facility] Work Phone: Summary Purpose Family History [...] DATE CREATED AUTHOR AUTHOR'S ORGANIZ ATION 06/29/2024 [facility] DATE CREATED AUTHOR AUTHOR'S ORGANIZ ATION 07/27/2024 [facility] DATE CREATED AUTHOR AUTHOR'S ORGANIZ ATION 08/04/2024 [facility] DATE CREATED AUTHOR AUTHOR'S ORGANIZ ATION 08/12/2024 [facility] DATE CREATED AUTHOR AUTHOR'S ORGANIZ ATION 09/07/2024 [facility] DATE CREATED AUTHOR AUTHOR'S ORGANIZ ATION 09/17/2024 [facility] Care Teams (unrecognized sec tion and content) Team Status: Inactive Member Role Status Dates Ning Wakefield DO Attending Provider Active Star t: June 20, 2024 End: June 20, 2024 Registered Nurse Behavioral Health Relationship Specialty Start Date End Date Shabnam Villarreal MD [address] [place] [address] PCP - General Behavioral Health 06/05/24 Registered Nurse Behavioral Health Relationship Specialty Start Date End Date Shabnam Villarreal MD [address] [place] [address] PCP - General Behavioral Health 06/05/24 Team Status: Active Member Role Status Dates [facility] Active Team Status: Inactive Member Role Status Dates Angelina Tomlinson MD Attending Provider Active Start: July 26, 2024 End: July 26, 2024 [facility] Active Start: July 26, 2024 End: July 26, 2024 Aimee Singh MD Referring Provider Active St art: July 26, 2024 End: July 26, 2024 Team Status: Active Member Role Status Dates [facility] Active Start: July 26, 2024 Angelina Tomlinson MD Attending Provider Active Start: July 26, 2024 Aimee Singh MD Referring Provider Active St art: July 26, 2024 Registered Nurse Behavioral Health Relationship Specialty Start Date End Date Raffi Byrd MD [address] [place] [address] PCP - General Internal Medicine 01/01/22 Team Status: Inactive Member Role Status Dates [facility] Primary Care Provider Active Start: August 17, 2024 End: August 17, 2024 Angelina Tomlinson MD Attending Provider Active Start: August 17, 2024 End: August 17, 2024 Team Status: Active Member Role Status Dates [facility] Primary Care Provider Active Start: August 17, 2024 Angelina Tomlinson MD Attending Provider Active Start: August 17, 2024 Aimee Singh MD Referring Provider Active St art: August 17, 2024 Registered Nurse Behavioral Health Relationship Specialty Start Date End Date Shabnam Villarreal MD [address] [place] [address] PCP - [facility] 06/05/24 Registered Nurse Behavioral Health Relationship Specialty Start Date End Date Shabnam Villarreal MD [address] [place], [place] [id number] PCP - General [facility] 06/05/24 Goals (unrecognized section and content) Goals may be documented in a n alternate section Reason for Visit (unrecogniz ed section and content) Reason Comments Follow-up Pt presents today fo r a follow up after his colonoscopy on 06/20. Reason Comments Colonoscopy Pt presents today fo r a colonoscopy. Pt states that he has never had a colonoscopy before. Pt states that he went to [facility] ER on 05/15 for rectal bleeding and constipation. He states that they prescribed Colace and he is still taking it and he believes it is helping. Pt gave his VIS sheet from [facility] and it states that they saw a rectal mass. FOR RECORDS PERTAINING TO PATIENTS WHO ARE [...] BE BASED ON THE PRIMARY CLINICAL RECORDS. [employer] provides no warranty or guarantee of the accuracy or completeness of information in this document.
[2024-10-10 08:20] VITALS: BP 136/78; PULSE 76; TEMP 36.1; O2SAT 96
[2024-10-10 08:40] LABS: Basophils Absolute Auto 0.1 10^3/uL (0.0-0.1); Basophils Percent Auto 1.9 % (0.2-2.0); Eosinophils Absolute Auto 0.2 10^3/uL (0.0-0.7); Eosinophils Percent Auto 4.3 % (0.9-7.0); Hemoglobin 10.7 g/dL (14.0-18.0); Immature Granulocytes Abs Auto 0.02 10^3/uL (0.00-0.03); Immature Granulocytes Pct Auto 0.4 % (0.0-0.5); Lymphocytes Absolute Auto 1.4 10^3/uL (1.2-3.8); Lymphocytes Percent Auto 26.6 % (20.5-60.0); Mean Corpuscular HGB Conc 32.4 g/dL (29.9-35.2); Mean Corpuscular Volume 83.3 fL (80.0-94.0); Mean Platelet Volume 9.2 fL (9.5-13.5); Monocytes Absolute Auto 0.9 10^3/uL (0.3-0.8); Monocytes Percent Auto 16.9 % (1.7-12.0); Neutrophils Absolute Auto 2.6 10^3/uL (1.4-6.5); Neutrophils Percent Auto 49.9 % (43.0-75.0); Platelet Count 230 10^3/uL (150-450); Red Blood Count 3.96 10^6/uL (4.70-6.10); Red Cell Distribution Width 27.6 % (11.0-15.0); White Blood Count 5.2 10^3/uL (4.0-11.0)
[2024-10-10 08:57] LABS: Alanine Aminotransferase 16 U/L (16-63); Albumin Globulin Ratio 0.8; Albumin Level 3.1 g/dL (3.4-5.0); Alkaline Phosphatase 111 U/L (46-116); Anion Gap 13.9; Aspartate Amino Transferase 22 U/L (15-37); Bilirubin Total 0.3 mg/dL (0.2-1.0); Calcium 9.1 mg/dL (8.5-10.1); Carbon Dioxide 26.5 mmol/L (21.0-32.0); Chloride 101 mmol/L (98-107); Estimated GFR (African America >60 (>=60 mL/min/1.73m^2); Estimated GFR (Non-African Ame >60 (>=60 mL/min/1.73m^2); Glucose 103 mg/dL (74-106); Magnesium 1.9 mg/dL (1.8-2.4); Potassium 4.4 mmol/L (3.5-5.1); Sodium 137 mmol/L (136-145); Total Protein 7.1 g/dL (6.4-8.2)
[2024-10-10] MEDS: PALONOSETRON HCL 0.25 MG/5 ML VIAL IV (09:40)
[2024-10-10] MEDS: DEXTROSE 5 % IN WATER 250 ML 10 ML IV (09:40)
[2024-10-10] MEDS: DEXAMETHASONE SODIUM PHOSPHATE 10 MG in 0.9 % SODIUM CHLORIDE 100 ML 303 MG IV (09:41)
[2024-10-10] MEDS: DEXTROSE 5% IV ×2 (10:21→10:22)
[2024-10-10] MEDS: WATER IV ×2 (10:21→10:22)
[2024-10-10] MEDS: OXALIPLATIN IV (10:21)
[2024-10-10] MEDS: LEUCOVORIN CALCIUM IV (10:22)
[2024-10-10] MEDS: SODIUM CHLORIDE 0.9% IV (12:23)
[2024-10-10] MEDS: FLUOROURACIL IV (12:23)
--- NOTE | 2024-10-10 13:30 | PC.NURSE ---
Pt here for C.3 Folfox. Labs drawn from port, results reviewed. Pt was seen by Dr. Singh, order rec'd to proceed with tx. Tx given w/o incident. Pt d/c'd stable. Returns this for 5FU pump d/c.
[2024-10-12 12:45] VITALS: BP 133/70; PULSE 68; TEMP 36.6; O2SAT 97
[2024-10-24 09:08] LABS: Basophils Absolute Auto 0.1 10^3/uL (0.0-0.1); Basophils Percent Auto 1.3 % (0.2-2.0); Eosinophils Absolute Auto 0.2 10^3/uL (0.0-0.7); Hematocrit 34.8 % (42.0-54.0); Hemoglobin 11.5 g/dL (14.0-18.0); Immature Granulocytes Abs Auto 0.01 10^3/uL (0.00-0.03); Immature Granulocytes Pct Auto 0.2 % (0.0-0.5); Lymphocytes Absolute Auto 1.3 10^3/uL (1.2-3.8); Lymphocytes Percent Auto 23.9 % (20.5-60.0); Mean Corpuscular Hemoglobin 28.5 pg (25.9-34.0); Mean Corpuscular Volume 86.4 fL (80.0-94.0); Mean Platelet Volume 9.5 fL (9.5-13.5); Monocytes Absolute Auto 0.9 10^3/uL (0.3-0.8); Monocytes Percent Auto 15.6 % (1.7-12.0); Platelet Count 186 10^3/uL (150-450); Red Blood Count 4.03 10^6/uL (4.70-6.10); Red Cell Distribution Width 29.6 % (11.0-15.0); White Blood Count 5.4 10^3/uL (4.0-11.0)
[2024-10-24 09:13] LABS: Erythrocyte Sedimentation Rate 88 mm/hr (<=20)
[2024-10-24 09:20] LABS: Alanine Aminotransferase 21 U/L (16-63); Albumin Globulin Ratio 0.8; Albumin Level 3.2 g/dL (3.4-5.0); Alkaline Phosphatase 106 U/L (46-116); Anion Gap 11.4; Aspartate Amino Transferase 23 U/L (15-37); BUN Creatinine Ratio 18.6; Bilirubin Total 0.7 mg/dL (0.2-1.0); Calcium 9.2 mg/dL (8.5-10.1); Carbon Dioxide 27.7 mmol/L (21.0-32.0); Chloride 103 mmol/L (98-107); Estimated GFR (African America >60 (>=60 mL/min/1.73m^2); Estimated GFR (Non-African Ame >60 (>=60 mL/min/1.73m^2); Globulin 4.2 g/dL; Glucose 118 mg/dL (74-106); Percent Iron Saturation 24.2 %; Potassium 4.1 mmol/L (3.5-5.1); Sodium 138 mmol/L (136-145); Total Protein 7.4 g/dL (6.4-8.2)
[2024-10-24] MEDS: DEXTROSE 5 % IN WATER 250 ML 20 ML IV (09:20)
[2024-10-24 09:29] LABS: C Reactive Protein <0.50 mg/dL (<=0.50)
[2024-10-24 09:45] VITALS: BP 123/56; PULSE 72; TEMP 36.1; O2SAT 97
[2024-10-24] MEDS: PALONOSETRON HCL 0.25 MG/5 ML VIAL IV (11:02)
[2024-10-24] MEDS: DEXAMETHASONE SODIUM PHOSPHATE 10 MG in 0.9 % SODIUM CHLORIDE 100 ML 303 MG IV (11:03)
[2024-10-24] MEDS: DEXTROSE 5% IV ×2 (11:39)
[2024-10-24] MEDS: LEUCOVORIN CALCIUM IV (11:39)
[2024-10-24] MEDS: WATER IV ×2 (11:39)
[2024-10-24] MEDS: OXALIPLATIN IV (11:39)
[2024-10-24] MEDS: FUROSEMIDE 20 MG/2 ML VIAL 10 MG IVP (14:15)
[2024-10-24] MEDS: SODIUM CHLORIDE 0.9% IV (14:15)
[2024-10-24] MEDS: FLUOROURACIL IV (14:15)
--- NOTE | 2024-10-24 15:49 | PC.NURSE ---
Pt here for C.4D.1 FOLFOX. Labs drawn from port. Slight redness noted around port site from chemo infiltrate 2 wks ago. No swelling noted, pt denies pain. Dr. Singh notified-ok to use port for tx. Pt has bilateral lower extremity edema, order rec'd from Dr. Singh to give Lasix 10mg IVP x 1 after tx and stop po Dex at home. Spoke with homecare nurse and notified her to stop Dex as well, she states understanding and will also start setting up pt's med wkly for him in a pill box. Tx complete w/o incident. Pt d/c'd in stable condition.
[2024-10-25 13:09] LABS: Vitamin B12 432 pg/mL (232-1245)
[2024-10-26] MEDS: HEPARIN SODIUM (PORCINE) PF LOCK FLUSH 500 UNIT/5 ML SYRINGE IV (13:03)
--- NOTE | 2024-10-26 14:26 | PC.NURSE ---
Pt here for 5FU pump removal. Verified pump/bulb empty. Port flushed with NS followed by heplock, florian needle removed. Pt d/c'd in stable condition.
== END 2024-10-27 23:59 | disposition home or self-care (01) ==
LOC: HEMC 07:36
PROVIDERS: Visit Provider Internal Medicine Hematology & Oncology
DX: Z51.11 Encounter for antineoplastic chemotherapy (principal); C20 Malignant neoplasm of rectum; D64.9 Anemia, unspecified; R11.2 Nausea with vomiting, unspecified; D50.9 Iron deficiency anemia, unspecified; K90.9 Intestinal malabsorption, unspecified; Z79.01 Long term (current) use of anticoagulants; F17.220 Nicotine dependence, chewing tobacco, uncomplicated; R91.1 Solitary pulmonary nodule
CPT/HCPCS: 36415; 36591; 80053; 82607; 82728; 82746; 83540; 83550; 83735; 85025; 85652; 86140; 96367; 96368; 96375; 96413; 96415; 96416; G0463; J0640; J1100; J1642; J1940; J2469; J9190; J9263

== ENCOUNTER 2024-11-01 09:29 | Outpatient (OUT) | payer MEDICARE, SELFPAY ==
--- NOTE | 2024-11-01 09:32 | MR_ITS ---
The [address] [address] Patient Name: ROLDAN COTE MRN: [id number] date: 1950 Sex: M Assigned Patient Location: MRI Current Patient Location: Accession/Order Number: [id number] Exam Date: 11/01/2024 09:40 Report Date: 11/06/2024 11:53 At the request of: NEYMAR LERMA Procedure: MR pelvis wo/w con EXAM: MR pelvis wo/w con HISTORY: Malignant Neoplasm Of Rectum, Anemia, Nausea And Vomiting COMPARISON: PET/CT from 07/17/2024 and pelvic MRI from 07/14/2024 TECHNIQUE: Coronal T1 and fat-saturated STIR, sagittal T2 as well as axial T1, fat saturated STIR and fat-saturated T1-weighted images were obtained. Fat-saturated coronal and axial T1 weighted images were also obtained following administration of intravenous gadolinium contrast. FINDINGS: The study is degraded due to motion artifact. Rectal protocol was not performed and endometrial contrast was not utilized. Previously noted mid rectal mass is not well-visualized. No definite asymmetrical rectal wall thickening or enhancement is appreciated. Diffusion weighted images were not performed and limited evaluation of the subtle residual mass. There is perirectal T2 hyperintensity, representing fat stranding, likely posttreatment changes. Sigmoid diverticulosis without evidence of acute diverticulitis. No significant perirectal lymphadenopathy. Unchanged bilateral inguinal lymph nodes measuring up to 1.4 cm in short axis dimension. Bone marrow signal and soft tissue are unremarkable. MR/MR pelvis wo/w con IMPRESSION: Limited study due to motion artifact, limited rectal protocol as described above. No definite residual mass is noted. Follow-up with true rectal protocol is recommended. Electronically authenticated by: JODY SOLIMAN Date: 11/06/2024 11:53
--- OUTSIDE RECORDS SUMMARY | 2024-11-01 09:35 | XMS_ITS | CCD ---
Author Organization [facility] Care Team Providers Care Personal Care Worker Name Role Phone KAMALJIT SILVA Primary Care Unavailable MISC, DOCTOR Primary Care Unavailable SAVANNAH HERNÁNDEZ Admitting Unavailable SAVANNAH HERNÁNDEZ Attending Unavailable BLAIR KOCH Consulting Unavailable GRAHAM LINN V Consulting Unavailable ROHIT BRIZUELA Consulting Unavailable SAVANNAH HERNÁNDEZ Consulting Unavailable GIBRAN WAY Consulting Unavailable Chelsy Rosales CNP Primary Care Provider [phone] DO Ning Wakefield Attending Provider NING WAKEFIELD Attending Unavailable NING WAKEFIELD Attending Unavailable Phil MINAYA, [facility] Primary Care Provide r [facility], [facility] Primary Care Provider [phone] MD Angelina Tomlinson Attending Provider MD Aimee Singh Referring Provider [phone] Jesu Torres MD, [facility] Primary Care Provider KHORSAND MELISSA, RAFFI [...] Care Physician Ning Wakefield DO Attending Provider [facility] Primary Care Provider Angelina Tomlinson MD Attending Provider Aimee Singh MD Referring Provider FRANCISCO, AIMEE Primary Care Unavailable FRANCISCO, AIMEE Primary Care Unavailable Pranay ADAMSON Attending Unavailable FRANCISCO, AIMEE Primary Care Unavailable FRANCISCO, AIMEE Referring Unavailable Pranay ADAMSON Attending Unavailable FRANCISCO, AIMEE Primary Care Unavailable Pranay ADAMSON Attending Unavailable Ning Wakefield Attending Unavailable Ning Wakefield Admitting Unavailable Angelina Tomlinson Admitting Unavailable [facility] Primary Care Unavailable Francisco, Aimee Referring Unavailable Angelina Tomlinson Attending Unavailable Allergies Allergy Classification Reported Allergen(s) Allergy Type Date of Onset Reaction(s) Facility (1 source) -No Known Enviornmental Allergies; Translations: [-No Known Enviornmental Allergies] Allergy to substance 9 [facility] Work Phone: (1 source) No Known Medication Allergies; Translations: [No Known Medication Allergies] Propensity to adverse reactions (disorder) [facility] Repository Medications Current Medications Medication Drug [...] 12-07-2018 Magnesium 250MG Oral Tablet 12/07/2018 Provider: [place] (No Known Home Meds) (1 source) Start: 06-29-2017 [place] (No Known Home Meds) Active June 29, 2017 12:00am polyethylene glycol 3350 93786 mg powder for oral solution (2 sources) [...] unspecified] 07-01-2017 Episodic Other aftercare (1 source) 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 Denies discomfort, no use of pain medication. Denies bleeding or drainage. Port has been accessed without incident. Plan to start chemotherapy in 6 days. History of Present Illness 1 week s/p right external jugular rhljuw-b-rfvb insertion; doing well, mild soreness; no pain [...] (COVID-19) mRNA BNT-162b2 vax 12/13/2020 Recorded Normal [facility] Comment on above: Result Comment: Elec [...] you for choosing us for your care. [facility] HPon 08-03-2024 HP History Of Present Illness [...] rectal endoscopic ultrasound for local staging Normal [facility] POCT GLUCOSE METER UNSOLICIT ED RESULTSon 08-03-2024 Glucose [Mass/Vol] 104 mg/dL Normal 70-105 [facility] Comment on above: Order Comment: Waive d Testing in the ED is performed under the ED CLIA certificate #[id number]. Result Comment: acle ment Performed By: #### L [id number] #### [facility] ([facility]) [address] [place] [address] Consulton 08-02-2024 Consult [id number] Paul Velasquez ld 1950 M Date Provider Department Center 08/02/2024 DELMA WALSH [facility] SURG Second Fl No family history on file Level of Service:02985 AR OFFICE/OUTPATIENT NEW MODERATE MDM 45 MINUTES Reason for Visit and Comments: Rectal Cancer [254] Normal [facility] Orders Onlyon 08-02-2024 Orders Only [id number] Paul Velasquez ld 1950 M Date Provider Department Center 08/02/2024 [id number], HISTORICAL [facility] [place] [facility] No family history on file Normal [facility] Orders Onlyon 08-01-2024 Orders Only [id number] Paul Velasquez ld 1950 M Date Provider Department Center 08/01/2024 [id number] GRANADOS [facility] GISC [place] No family history on file Normal [facility] SURGICAL PATHOLOGY REFERENCE LAB CONSULTon 08-01-2024 CASE REPORT Normal [facility] Comment on above: Order Comment: Speci men Type: FORMALIN-FIXED PARAFFIN-EMBEDDED TISSUE SPECIMEN Ordering Facility: [facility] Address: [facility] [place] [address] Result Comment: Surg ical Pathology Report Case: [id number] Authorizing Provider: Aimee Singh MD Collected: 08/01/2024 03:44 PM Ordering Location: [facility] Received: 08/01/2024 03:44 PM [facility] Pathologist: Masoud Denson MD Specimen: Slide(s), 4 SLIDES [id number] Performed By: #### L [id number] #### [facility] CLIA [id number] [address] [place] [address] [place] CLINICAL HISTORY CONSULT REQUESTED Normal C [facility] Comment on above: Order Comment: Speci men Type: FORMALIN-FIXED PARAFFIN-EMBEDDED TISSUE SPECIMEN Ordering Facility: [facility] Address: [address] [place] [address] Performed By: #### L [id number] #### [facility] CLIA [id number] [address] [place] [address] [place] DIAGNOSIS COMMENT Normal [facility] Comment on above: Order Comment: Speci men Type: FORMALIN-FIXED PARAFFIN-EMBEDDED TISSUE SPECIMEN Ordering Facility: [facility] Address: [address] [place] [address] Result Comment: Than k you for allowing [...] do not hesitate to contact us at [phone] with questions or if additional follow-up information becomes available. This case was reviewed in conjunction with the GI pathology fellow, Patt Duarte M.D. Performed By: #### L [id number] #### [facility] CLIA [id number] [address] [place] [address] FINAL DIAGNOSIS Normal [facility] Comment on above: Order Comment: Speci men Type: FORMALIN-FIXED PARAFFIN-EMBEDDED TISSUE SPECIMEN Ordering Facility: [facility] Address: [address] [place] [address] Result Comment: Rect al mass, biopsy (A1): - At least intramucosal adenocarcinoma. - See comment G/MANISH 08/02/24 Performed By: #### L [id number] #### [facility] CLIA [id number] [address] [place] [address] FINAL PERFORMING LAB Normal [facility] Comment on above: Order Comment: Speci men Type: FORMALIN-FIXED PARAFFIN-EMBEDDED TISSUE SPECIMEN Ordering Facility: [facility] Address: [address] [place] [address] [place] [address] Result Comment: Diag nostic interpretation performed at: [facility], [address] [place] [address] CLIA# [id number] Molding Technician: Jluis Villafuerte MD Performed By: #### L [id number] #### [facility] CLIA [id number] [address] [place], [place] [address] [address] [place] BASIC METABOLIC PANLon 07-25 Anion gap [Moles/Vol] 8 mmol/L Normal 5-15 [facility] Comment on above: Performed By: #### P INR, 73127-2 #### [facility] ([id number]) [address] [place] [address] #### CBC, BMP #### [facility] ([id number]) [address], [address] [place] [address] Calcium [Mass/Vol] 9.2 mg/dL Normal 8.5-10.5 [facility] Comment on above: Performed By: #### P INR, 77623-5 #### [facility] ([id number]) [address] [place] [address]65 #### CBC, BMP #### [facility] ([id number]) [address], [address] [place] [address] Chloride [Moles/Vol] 103 mmol/L Normal 98-109 [facility] Comment on above: Performed By: #### P INR, 67920-1 #### [facility] ([id number]) [address] [place] [address] #### CBC, BMP #### [facility] ([id number]) [address] [place] [address] CO2 [Moles/Vol] 26 mmol/L Normal 22-32 [facility] Comment on above: Performed By: #### P INR, 39942-8 #### [facility] ([id number]) [address] [place] [address] #### CBC, BMP #### [facility] ([id number]) [address], [address] [place] [address] Creatinine [Mass/Vol] 0.91 mg/dL Normal 0.60-1.30 [facility] Comment on above: Result Comment: METH OD TRACEABLE TO IDMS STANDARD Performed By: #### P INR, 91591-0 #### [facility] ([id number]) [address] [place] [address] 38006 #### CBC, BMP #### [facility] ([id number]) [address], [address] [place] [address] GFR/1.73 sq M.predicted among non-blacks MDRD (S/P/Bld) [Vol rate/Area] 87 mL/min/{1.73_m2} Normal >59 [facility] Comment on above: Result Comment: Reported eGFR is based on the CKD-EPI 2020 equation that does not use a race coefficient. Performed By: #### P INR, 77754-6 #### [facility] ([id number]) [address] [place] [address] #### BASILIO, BMP #### [facility] ([id number]) [address], [address] [place] [address] Glucose [Mass/Vol] 103 mg/dL High 65-99 [facility] Comment on above: Performed By: #### P INR, 96402-3 #### [facility] ([id number]) [address] [place] [address] #### CBC, BMP #### [facility] ([id number]) [address], [address] [place] [address] Potassium [Moles/Vol] 5.1 mmol/L High 3.5-5.0 [facility] Comment on above: Performed By: #### P INR, 06553-3 #### [facility] ([id number]) [address] [place] [address] #### CBC, BMP #### [facility] ([id number]) [address], [address] [place] [address] Sodium [Moles/Vol] 137 mmol/L Normal 134-146 [facility] Comment on above: Performed By: #### P INR, 46832-5 #### [facility] ([id number]) [address] [place] [address]353 #### CBC, BMP #### [facility] ([id number]) [address] [facility], [address] [place] [address] Urea nitrogen [Mass/Vol] 10 mg/dL Normal 5-27 [facility] Comment on above: Performed By: #### P INR, 88241-6 #### [facility] ([id number]) [address] [place] [address]83 #### CBC, BMP #### [facility] ([id number]) [address] [facility], [address] [place] [address] COMPLETE BLOOD COUNTon 07-25 Erythrocyte distribution width (RBC) [Ratio] 16.5 % High 11.5-15.0 [facility] Comment on above: Performed By: #### P INR, 10204-9 #### [facility] ([id number]) [address] [place] [address] #### CBC, BMP #### [facility] ([id number]) [address], [address] [address] Hematocrit (Bld) [Volume fraction] 30.0 % Low 39-49 [facility] Comment on above: Performed By: #### P INR, 18190-2 #### [facility] ([id number]) [address] [place] [address] 71008 #### CBC, BMP #### [facility] ([id number]) [address] [place] [address] Hemoglobin (Bld) [Mass/Vol] 10.0 g/dL Low 13.0-17.0 [facility] Comment on above: Performed By: #### P INR, 06692-4 #### [facility] ([id number]) [address] [place] [address]38 #### CBC, BMP #### [facility] ([id number]) [address], [address] [place] [address] MCH (RBC) [Entitic mass] 28.2 pg Normal 27-34 [facility] Comment on above: Performed By: #### P INR, 65395-5 #### [facility] ([id number]) [address] [place] [address] 31050 #### CBC, BMP #### [facility] ([id number]) [address], [address] [place] [address] MCHC (RBC) [Mass/Vol] 33.2 g/dL Normal 32-36 [facility] Comment on above: Performed By: #### P INR, 32794-2 #### [facility] ([id number]) [address] [place] [address]21 #### CBC, BMP #### [facility] ([id number]) [address] [place] [address] MCV (RBC) [Entitic vol] 85 fL Normal 80-100 [facility] Comment on above: Performed By: #### P INR, 70683-6 #### [facility] ([id number]) [address] [place] [address]3542 #### CBC, BMP #### [facility] ([id number]) [address], [address] [place] [address] Platelet mean volume (Bld) [Entitic vol] 8.3 fL Normal 7-12 [facility] Comment on above: Performed By: #### P INR, 23057-4 #### [facility] ([id number]) [address] [place] [address] #### CBC, BMP #### [facility] ([id number]) [address], [address] [place] [address] Platelets (Bld) [#/Vol] 296 10*3/uL Normal 150-450 [facility] Comment on above: Performed By: #### P INR, 39644-6 #### [facility] ([id number]) [address] [place] [address] 14451 #### CBC, BMP #### [facility] ([id number]) [address], [address] [place] [address] RBC COUNT 3.53 X10E12/L Low 4.10-5.70 [facility] Comment on above: Performed By: #### P INR, 00436-2 #### [facility] ([id number]) [address] [place] [address] 37157 #### CBC, BMP #### [facility] ([id number]) [address] [place] [address] WBC (Bld) [#/Vol] 6.4 10*3/uL Normal 4.0-11.0 [facility] Comment on above: Performed By: #### P INR, 97273-0 #### [facility] ([id number]) [address] [place] [address] #### CBC, BMP #### [facility] ([id number]) [address], [address] [place] [address] PROTIME AND INRon 07-25-2024 INR Coag (PPP) [Relative time] 1.1 {INR} Normal 0.8-1.1 [facility] Comment on above: Performed By: #### P INR, 25115-2 #### [facility] ([id number]) [address] [place] [address] 99135 #### CBC, BMP #### [facility] ([id number]) [address] [facility], [address] [place] [address] PT Coag (PPP) [Time] 13.1 s Normal 9.8-13.2 [facility] Comment on above: Result Comment: NEW REFERENCE RANGE Performed By: #### P INR, 89738-8 #### [facility] ([id number]) [address] [place] [address] 38691 #### CBC, BMP #### [facility] ([id number]) [address] [facility], [address] [place] [address] aPTT Coag (PPP) [Time]on aPTT Coag (Bld) [Time] 35 s Normal 26-37 [facility] Comment on above: Result Comment: NEW REFERENCE RANGE Performed By: #### P INR, 86869-2 #### [facility] ([id number]) [address] [place] [address]14 #### CBC, BMP #### [facility] ([id number]) [address] [facility], [address] [place] [address] Office Visiton 06-30-2024 Follow-up visit [id number] Paul Velasquez 1950 M Date Provider Department Center 06/30/2024 Noemy-CLEM GALLARDO [facility] GI [facility] No family history on file Level of Service:33311 AR OFFICE/OUTPATIENT NEW MODERATE MDM 45 MINUTES (GC) Reason for Visit and Comments: 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 Normal [facility] 06-20-2024 L Specimen: [id number] Received: 06/20/24 Status: CECILIA Garza Num: [id number] Spec Type: Surgical Subm Dr: Ning Wakefield DO Tissues: A Colon Biopsy (RECTAL MASS BX AT 5CM) Procedures: HE/4, Gross/Micro L4 Age/ Patient Sex Location Account Attending Physician Alexei Velasquez 73/M [facility] [id number] Ning Wakefield DO SPEC NUM: [id number] RECD: 06/20/24 STATUS: CECILIA GARZA NUM: [id number] ANITA: 06/20/[address] [facility] [address]: Ning Wakefield DO ENTERED: 06/20/[address]: Luana Brown SPEC TYPE: Surgical DEPT: [facility] ENTERED BY: [id number] RECV BY: [id number] ORDERED: HE/4, Gross/Micro L4 ORDERED: HE/4, Gross/Micro L4 Supplemental Report Addendum 3 Entered: 08/02/24 Supplemental for findings of consultation report from [facility] -At least intramucosal adenocarcinoma -See comment Addendum Signed (signature on file) Kristian Sánchez MD 08/02/241806 Addendum 2 Entered: 07/28/24 Supplemental for findings of summary of detected somatic alterations, immunotherapy biomarkers and associated treatment options from [address] Detected alterations/biomarkers associated FDA approved therapies clinical trial availability KRAS T50I Cetuximab, Panitumumab Yes SERGEY [id number] Olaparib, Talazoparib Yes APC E893 None Yes FBXW7 G219fs None Yes Specimen: [id number] Received: 06/20/24 Status: CECILIA Garza Num: [id number] Spec Type: Surgical Subm Dr: Ning Wakefield DO Tissues: A Colon Biopsy (RECTAL MASS BX AT 5CM) Procedures: HE/Devan, Gross/Micro L4 Patient: Alexei Velasquez [id number] (Continued) Specimen: [id number] Received: 06/20/24 (Continued) Supplemental Report (Continued) Signed (signature on file) Mumtaz Amor MD 06/22/24 1845 Specimen: [id number] Received: 06/20/24 Status: CECILIA Garza Num: [id number] Spec Type: Surgical Subm Dr: Ning Wakefield DO Tissues: A Colon Biopsy (RECTAL MASS BX AT 5CM) Procedures: HE/4, Gross/Micro L4 Patient: Alexei Velasquez [id number] (Continued) Specimen: [id number] Received: 06/20/24 (Continued) Supplemental Report (Continued) APC F4503pg None Yes TP53 W91fs None Yes Note: -Also see entire report on file for detailed information Addendum Signed (signature on file)__Celeste Sánchez MD 07/28/24848 Addendum 1 Entered: 07/28/24 Supplemental for findings of PD-L1 22C3 by immunohistochemistry from [place] [address] [employer] -Combined positive score (CPS): 5 -Please also see [place] PD-L1 22C3 [employer]-established reference ranges in original report Addendum Signed [...] is filtered entirely submitted cassette A1. Specimen: [id number] Received: 06/20/24 Status: CECILIA Kayla Num: [id number] Spec Type: Surgical Subm Dr: Ning Wakefield DO Tissues: A Colon Biopsy (RECTAL MASS BX AT 5CM) Procedures: Alverto WHYTE/Lily L4 Patient: Alexei Velasquez [id number] (Continued) Specimen: [id number] Received: 06/20/24 (Continued) Signed (signature on file) Mumtaz Amor MD 06/22/24 1845 Specimen: [id number] Received: 06/20/24 Status: CECILIA Garza Num: [id number] Spec Type: Surgical Subm Dr: Ning Wakefield, Tissues: A Colon Biopsy (more content not included)... Normal [facility] Physician [facility] CT CSPINE WO CONon 0 [...] by: GIBRAN WAY Date: 2020-06-04 23:44 Normal [facility] CT HEAD WO CONon 06-05-2020 CT [...] by: GRAHAM LINN Date: 2020-06-04 22:07 Normal [facility] XR CHEST 1 Von 06-05-2020 XR [...] by: GRAHAM LINN Date: 2020-06-04 22:13 Normal [facility] XR PELVIS 1_2 VIEWSon 2019 XR PELVIS 1_2 VIEWS EXAMINATION: XR PELVIS 1_2 VIEWS HISTORY: Altered mental status COMPARISON: No relevant comparison available. FINDINGS: BOWEL GAS PATTERN: No abnormal dilation or deviation. CALCIFICATIONS: None significant. OTHER: No acute fracture. Mild bilateral hip osteoarthropathy. Mild spondylosis of the spine IMPRESSION: No definite acute fracture Electronically authenticated by: GRAHAM LINN Date: 2020-06-04 22:16 Normal [facility] XR SHOULDER LT 2V or >on [...] GRAHAM LINN Date: 2020-06-04 22:15 Normal [facility] CARDIAC SHANE ADMITon 020 CK [Catalytic activity/Vol] 84 U/L Normal 55-170 [facility] Comment on above: Performed By: #### C HARINI WEST, CMADM #### [facility] [address] [place], [place] [address] Marielena Keller CK.MB [Mass/Vol] 1.08 ng/mL Normal <=2.37 [facility] Comment on above: Performed By: #### C JENNA, HARINI, CMADM #### [facility] [address] [place], [place] [address] Marielena Arianna INR Coag (Bld) [Relative time] SEE BELOW Normal [facility] Comment on above: Result Comment: <0.0 34 ng/ml NEGATIVE 0.034-0.119 INDETERMINATE 0.120 AMI CUT OFF Performed By: #### C HARINI WEST, CMADM #### [facility] [address] [place] [address] Marielena Arianna KWABENA 58.0 ng/mL Normal <=121.0 [facility] Comment on above: Performed By: #### C HARINI WEST, CMADM #### [facility] [address] [place], [place] [address] Marielena Arianna TROP <0.012 Normal <=0.034 [facility] Comment on above: Performed By: #### C JENNA, HARINI, CMADM #### [facility] [address] [place], [place] [address] Marielena Arianna CBC AUTO DIFFon 06-04-2020 Basophils (Bld) [#/Vol] 0.1 103/ul Normal 0.0-0.1 [facility] Comment on above: Performed By: #### C BC #### [facility] [address] [place], [place] [address] Marielena Arianna Basophils/100 WBC (Bld) 1.5 % Normal 0.2-2.0 [facility] Comment on above: Performed By: #### C BC #### [facility] [address] [place], [place] [address] Marielena Arianna Eosinophils (Bld) [#/Vol] 0.1 103/ul Normal 0.0-0.7 [facility] Comment on above: Performed By: #### C BC #### [facility] [address] [place] [address] Marielena Arianna Eosinophils/100 WBC (Bld) 2.6 % Normal 0.9-7.0 [facility] Comment on above: Performed By: #### C BC #### [facility] [address] [place] [address] Marielena Arianna Erythrocyte distribution width (RBC) [Ratio] 13.3 % Normal 11.0-15.0 [facility] Comment on above: Performed By: #### C BC #### [facility] [address] [place] [address] Marielena Arianna Hematocrit (Bld) [Volume fraction] 39.5 % Critically low 42.0-54.0 [facility] Comment on above: Performed By: #### C BC #### [facility] [address] [place] [address] Marielena Arianna Hemoglobin (Bld) [Mass/Vol] 13.3 g/dL Critically low 14.0-18.0 [facility] Comment on above: Performed By: #### C BC #### [facility] [address] [place] [address] Marielena Arianna IG # 0.02 10e3/ul Normal 0.00-0.03 [facility] Comment on above: Performed By: #### C BC #### [facility] [address] [place] [address] Marielena Arianna IG % 0.4 % Normal 0.0-0.5 [facility] Comment on above: Performed By: #### C BC #### [facility] [address] [place] [address] Marielena Arianna Lymphocytes (Bld) [#/Vol] 1.7 103/ul Normal 1.2-3.8 [facility] Comment on above: Performed By: #### C BC #### [facility] [address] [place] [address] Marielena Arianna Lymphocytes/100 WBC (Bld) 38.0 % Normal 20.5-60.0 [facility] Comment on above: Performed By: #### C BC #### [facility] [address] [place], [place] [address] Marielena Keller MANUAL DIFF REQ NO Normal [facility] Comment on above: Performed By: #### C BC #### [facility] [address] [place], [place] [id number] Marielena Arianna MCH (RBC) [Entitic mass] 32.1 pg Normal 25.9-34.0 [facility] Comment on above: Performed By: #### C BC #### [facility] [address] [place], [place] [id number] Marielenaemma Zafaren MCHC (RBC) [Mass/Vol] 33.7 g/dL Normal 29.9-35.2 [facility] Comment on above: Performed By: #### C BC #### [facility] [address] [place], [place] [id number] Marielenaemma Zafaren MCV (RBC) [Entitic vol] 95.4 fL Critically high 80.0-94.0 [facility] Comment on above: Performed By: #### C BC #### [facility] [address] [place] [address] Marielena Arianna Monocytes (Bld) [#/Vol] 0.6 103/ul Normal 0.3-0.8 [facility] Comment on above: Performed By: #### C BC #### [facility] [address] [place] [address] Marielena Arianna Monocytes/100 WBC (Bld) 13.7 % Critically high 1.7-12.0 [facility] Comment on above: Performed By: #### C BC #### [facility] [address] [place], [place] [id number] Marielena Arianna Neutrophils (Bld) [#/Vol] 2.0 103/ul Normal 1.4-6.5 [facility] Comment on above: Performed By: #### C BC #### [facility] [address] [place], [place] [id number] Marielena Arianna Neutrophils/100 WBC (Bld) 43.8 % Normal 43.0-75.0 [facility] Comment on above: Performed By: #### C BC #### [facility] [address] [place], [place] [id number] Marielena Keller Platelet mean volume (Bld) [Entitic vol] 10.4 fL Normal 9.5-13.5 [facility] Comment on above: Performed By: #### C BC #### [facility] [address] [place], [place] [id number] Marielenaemma Keller Platelets (Bld) [#/Vol] 141 103/ul Critically low 150-450 [facility] Comment on above: Performed By: #### C BC #### [facility] [address] [place], [place] [id number] Marielenaemma Keller RBC (Bld) [#/Vol] 4.14 106/ul Critically low 4.70-6.10 Th e [facility] Comment on above: Performed By: #### C BC #### [facility] [address] [place] [address] Marielenaemma Keller WBC (Bld) [#/Vol] 4.5 103/ul Normal 4.0-11.0 [facility] Comment on above: Performed By: #### C BC #### [facility] [address] [place], [place] [id number] Marielenaemma Keller ETHANOL (BLD ALC)on 06-04-20 20 Ethanol [Mass/Vol] NOTE: 80 mg/dl is the legal limit for a blood alcohol level Normal [facility] Comment on above: Performed By: #### C HARINI WEST CMADM #### [facility] [address] [place] [address] Marielenaemma Keller Ethanol [Mass/Vol] 347 mg/dL Normal [facility] Comment on above: Performed By: #### C HARINI WEST CMADM #### [facility] [address] [place], [place] [id number] Marielena Arianna PROF 14(COMP METB)on 020 Albumin [Mass/Vol] 3.5 g/dL Normal 3.5-5.0 [facility] Comment on above: Performed By: #### C MP, ETH, CMADM #### [facility] [address] [place], [place] [address] Marielena Arianna Albumin/Globulin [Mass ratio] 0.9 {ratio} Normal [facility] Comment on above: Performed By: #### C MP, ETH, CMADM #### [facility] [address] [place], [place] [address] Marielena Arianna ALP [Catalytic activity/Vol] 54 U/L Normal 38-126 [facility] Comment on above: Performed By: #### C MP, ETH, CMADM #### [facility] [address] [place], [place] [address] Marielena Arianna ALT [Catalytic activity/Vol] 109 U/L Critically high 21-72 [facility] Comment on above: Performed By: #### C MP, ETH, CMADM #### [facility] [address] [place] [id number] Marielena Arianna Anion gap [Moles/Vol] 14.5 mmol/L Normal [facility] Comment on above: Performed By: #### C MP, ETH, CMADM #### [facility] [address] [place] [id number] Marielena Arianna AST [Catalytic activity/Vol] 128 U/L Critically high 17-59 [facility] Comment on above: Performed By: #### C MP, ETH, CMADM #### [facility] [address] [place], [place] [address] Marielena Arianna Bilirubin Ql (U) 0.3 mg/dL Normal 0.2-1.3 [facility] Comment on above: Performed By: #### C MP, ETH, CMADM #### [facility] [address] [place], [place] [address] Marielena Arianna Calcium [Mass/Vol] 8.5 mg/dL Normal 8.4-10.2 [facility] Comment on above: Performed By: #### C MP, ETH, CMADM #### [facility] [address] [place] [phone] Marielena Arianna Chloride [Moles/Vol] 102 mmol/L Normal 98-107 [facility] Comment on above: Performed By: #### C MP, ETH, CMADM #### [facility] [address] [place] [place] [address] Marielena Arianna CO2 [Moles/Vol] 25.2 mmol/L Normal 22.0-30.0 [facility] Comment on above: Performed By: #### C MP, ETH, CMADM #### [facility] [address] [place] [address] Marielena Arianna Creatinine [Mass/Vol] 0.87 mg/dL Normal 0.66-1.25 [facility] Comment on above: Performed By: #### C MP, ETH, CMADM #### [facility] [address] [place] [address] Marielena Arianna EGFR-AF GABONESE >60 Normal >=60 The [facility] Comment on above: Performed By: #### C MP, ETH, CMADM #### [facility] [address] [place] [address] Marielena Arianna EGFR-NON AF GABONESE >60 Normal >=60 [facility] Comment on above: Performed By: #### C MP, ETH, CMADM #### [facility] [address] [place] [address] Marielena Arianna Globulin (S) [Mass/Vol] 3.7 g/dL Normal [facility] Comment on above: Performed By: #### C MP, ETH, CMADM #### [facility] [address] [place] [address] Marielena Arianna Glucose [Mass/Vol] 107 mg/dL Critically high 74-106 [facility] Comment on above: Performed By: #### C MP, ETH, CMADM #### [facility] [address] [place] [address] Marielena Arianna Potassium [Moles/Vol] 3.7 mmol/L Normal 3.4-5.0 [facility] Comment on above: Performed By: #### C MP, ETH, CMADM #### [facility] [address] [place] [address] Marielena Arianna Protein [Mass/Vol] 7.2 g/dL Normal 6.1-8.2 [facility] Comment on above: Performed By: #### C JENNA, HARINI, CMADM #### [facility] [address] [place], [place] [address] Marielena Arianna Sodium [Moles/Vol] 138 mmol/L Normal 137-145 [facility] Comment on above: Performed By: #### C JENNA, ETH, CMADM #### [facility] [address] [place], [place] [address] Marielena Arianna Urea nitrogen [Mass/Vol] 11.0 mg/dL Normal 9.0-20.0 [facility] Comment on above: Performed By: #### C JENNA, HARINI, CMADM #### [facility] [address] [place], [place] [address] Marielena Arianna Urea nitrogen/Creatini ne [Mass ratio] 12.6 mg/mg Normal [facility] Comment on above: Performed By: #### C JENNA, HARINI, CMADM #### [facility] [address] [place], [place] [address] Marielena Arianna Vital Signs Date Time Vital Sign Value Performing Clinician Facility 08-15-2024 13:31-0500 Blood Pressure Location Pranay CITLALLIL [facility] 08-15-2024 13:31-0500 Diastolic blood pressure 74 mm[Hg] Pranay LENNONL [facility] 08-15-2024 13:31-0500 Heart rate 72 /min Pranay NILL [facility] 08-15-2024 13:31-0500 Respiratory rate 16 /min Pranay NILL [facility] 08-15-2024 13:31-0500 Systolic blood pressure 126 mm[Hg] Pranay NILL [facility] 07-26-2024 13:02-0400 Body height 170.18 cm [facility] Work Phone: [facility] 07-26-2024 13:02-0400 Body mass index (BMI) [Ratio] 30.2 kg/m2 [employer] Dept Work Phone: [facility] 07-26-2024 13:02-0400 Body weight 87.54 kg [employer] [facility] Work Phone: [facility] 07-26-2024 13:02-0400 Diastolic blood pressure 98 mm[Hg] [employer] [facility] Work Phone: [facility] 07-26-2024 13:02-0400 Respiratory rate 16 /min [employer] [facility] Work Phone: [facility] 07-26-2024 13:02-0400 SaO2% (BldA) [Mass fraction] 98 % [employer] [facility] Work Phone: [facility] 07-26-2024 13:02-0400 Systolic blood pressure 169 mm[Hg] [employer] [facility] Work Phone: [facility] 07-25-2024 14:27-0400 Body height 177.8 cm Pm 2 [facility] 07-25-2024 14:27-0400 Body mass index (BMI) [Ratio] 27.98 kg/m2 [facility] 07-25-2024 14:27-0400 Body weight 88.45 kg Pm 2 [facility] 06-28-2024 08:14-0400 Body height 177.8 cm [employer] Work Phone: [facility] 06-28-2024 08:14-0400 Body mass index (BMI) [Ratio] 27.55 kg/m2 [employer] Work Phone: [facility] 06-28-2024 08:14-0400 Body weight 87.09 kg [employer] Work Phone: [facility] 06-28-2024 08:14-0400 Diastolic blood pressure 84 mm[Hg] Ning Nicol DO Work Phone: [facility] 06-28-2024 08:14-0400 Heart rate 85 /min Ning Wakefield DO Work Phone: [facility] 06-28-2024 08:14-0400 Respiratory rate 18 /min Ning Wakefield DO Work Phone: [facility] 06-28-2024 08:14-0400 SaO2% (BldA) [Mass fraction] 98 % Ning Wakefield DO Work Phone: [facility] 06-28-2024 08:14-0400 Systolic blood pressure 138 mm[Hg] Ning Wakefield DO Work Phone: [facility] 06-05-2024 10:43-0400 Body height 177.8 cm Ning Wakefield DO Work Phone: [facility] 06-05-2024 10:43-0400 Body mass index (BMI) [Ratio] 27.55 kg/m2 Ning Wakefield DO Work Phone: [facility] 06-05-2024 10:43-0400 Body weight 87.09 kg Ning Wakefield DO Work Phone: [facility] 06-05-2024 10:43-0400 Diastolic blood pressure 84 mm[Hg] Ning Wakefield DO Work Phone: [facility] 06-05-2024 10:43-0400 Heart rate 72 /min Ning Wakefield DO Work Phone: [facility] 06-05-2024 10:43-0400 Respiratory rate 20 /min Ning Wakefield DO Work Phone: [facility] 06-05-2024 10:43-0400 SaO2% (BldA) [Mass fraction] 99 % Ning Wakefield DO Work Phone: [facility] 06-05-2024 10:43-0400 Systolic blood pressure 142 mm[Hg] Ning Erwinett DO Work Phone: [facility] 12-07-2018 16:37-0400 Body height 177.8 cm Chelsy Rosales CNP Work Phone: [facility] Work Phone: 12-07-2018 16:37-0400 Body mass index (BMI) [Ratio] 25.9 kg/m2 Chelsy Rosales CNP Work Phone: [facility] Work Phone: 12-07-2018 16:37-0400 Body surface area Derived from formula 2 m2 Chelsy Rosales CNP Work Phone: [facility] Work Phone: 12-07-2018 16:37-0400 Body temperature 96.6 [degF] Chelsy Rosales CNP Work Phone: [facility] Work Phone: 12-07-2018 16:37-0400 Body weight 81.76 kg Chelsy Rosales CNP Work Phone: [facility] Work Phone: 12-07-2018 16:37-0400 Diastolic blood pressure 80 mm[Hg] Chelsy Rosales CNP Work Phone: [facility] Work Phone: 12-07-2018 16:37-0400 Heart rate 54 /min Chelsy Rosales CNP Work Phone: [facility] Work Phone: 12-07-2018 16:37-0400 SaO2% (BldA) [Mass fraction] 98 % Chelsy Rosales CNP Work Phone: [facility] Work Phone: 12-07-2018 16:37-0400 Systolic blood pressure 130 mm[Hg] Chelsy Rosales CNP Work Phone: [facility] Work Phone: Encounters Encounter Date Encounter Type Care Provider Facility Start: 09-06-2024 End: 09-06-2024 ambulatory AIMEE [facility] Facility: Kevin Start: 09-05-2024 ambulatory Angelina Tomlinson Faci lity:[facility] Start: 08-30-2024 End: 08-30-2024 ambulatory AIMEE FRANCISCO Facility:CD:[id number] Start: 08-17-2024 Registered [facility] Work Phone: Start: 08-17-2024 End: 08-17-2024 ambulatory [facility] Work Phone: [facility] Work Phone: Start: 08-17-2024 End: 08-17-2024 Patient encounter procedure [facility] Work Phone: [facility] Work Phone: Start: 08-15-2024 End: 08-15-2024 ambulatory AIMEE SINGH Facility: Kevin Start: 08-15-2024 End: 08-15-2024 Patient encounter procedure Pranay ADAMSON [facility] Start: 08-10-2024 ambulatory AIMEE SINGH Facility : Kevin Start: 08-03-2024 End: 08-03-2024 ambulatory AIMEE FRANCISCO [facility] Start: 08-02-2024 End: 08-02-2024 ambulatory DELMA BROWN [facility] Start: 07-26-2024 Registered [facility] Work Phone: Start: 07-26-2024 End: 07-26-2024 ambulatory [facility] Work Phone: [facility] Work Phone: Start: 07-26-2024 End: 07-26-2024 Patient encounter procedure [facility] Work Phone: [facility] Work Phone: Start: 07-25-2024 Encounter for other preprocedural examination RAFFI TORRES [facility] Start: 07-25-2024 End: 07-25-2024 Patient encounter procedure [facility] Pre-Admission Testing 2 [facility] - Pre Admit Start: 07-25-2024 End: 07-25-2024 ambulatory CAMMIE KRUSE [facility] Start: 07-25-2024 End: 07-25-2024 ambulatory GRAHAM GLEZ [facility] Start: 06-30-2024 End: 06-30-2024 [facility] Start: 06-28-2024 End: 06-28-2024 Bamboo [...] Start: 06-20-2024 End: 06-20-2024 ambulatory Ning Wakefield [facility] Work Phone: Start: 06-20-2024 End: 06-20-2024 Departed Referred DO Ning Wakefield Work Phone: [facility] Start: 06-05-2024 End: 06-05-2024 Bamboo flowsheet Ning Wakefield DO Work Phone: [facility] Start: 06-05-2024 End: 06-05-2024 Bamboo flowsheet Ning Wakefield DO Work Phone: [facility] Start: 06-05-2024 End: 06-05-2024 ambulatory NING WAKEFIELD Not Available Start: 06-05-2024 End: 06-05-2024 Office outpatient new 45 minutes Ning Wakefield DO Work Phone: [facility] Comment on above: Encounter for diagno stic colonoscopy due to change in bowel habits (Primary Dx) Start: 06-05-2020 End: 06-05-2020 Patient encounter procedure DOCTOR MIS Facility: Start: 04-25-2019 End: 04-26-2019 Emergency department patient visit [facility] Start: 12-07-2018 End: 12-07-2018 FQHC visit new patient Wendi Katz SONIYA Work Phone: [facility] Work Phone: Procedures Date Procedure Procedure Detail Performing Clinician Start: 01-07-2022 Adult depression scr eening assessment [facility] 2 Start: 12-07-2018 HYPERTENSION (SYSTEMIC) Chelsy Rosales [employer]ATIONS REPRESENTATIVE Work Phone: Start: 12-07-2018 Operative procedure on ankle Chelsy Rosales INDUSTRIAL RELATIONS REPRESENTATIVE Work Phone: Start: 12-07-2018 Operative procedure on hand Chelsy Rosales INDUSTRIAL RELATIONS REPRESENTATIVE Work Phone: Start: 12-07-2018 Surgical procedure Cynt hia Connie [employer]ATIONS REPRESENTATIVE Work Phone: Angiography Pranay NILL Closed fracture of a nkle (disorder) Pranay NILL Closed fracture of l eft wrist (disorder) Pranay NILL Colonoscopy Pranay NILL Colonoscopy Pranay NILL Extraction of cataract Rex jin NILL Plan of Treatment Date Care Activity Detail Author Start: 06-04-2030 DTaP,Tdap and Td Vaccines (4 - Td or Tdap) DTaP,Tdap and Td Vaccines (4 - Td or Tdap) [facility] Start: 07-25-2025 Adult BMI Screening Adult BMI Screen ing [facility] Start: 07-25-2025 Tobacco Screening Tobacco Screening [facility] Start: 07-28-2024 End: 07-28-2024 Admission to same day surgery center 07/28/2024 9:00 AM EDT - 07/28/2024 10:00 AM EDT Surgery [facility] [address] [place] [id number] Cammie Kruse MD [address] [place] [address] INSERTION PORT A CATH-MEDI PORT FOR CHEMO [51927 (CPT )] [facility] Comment on above: INSERTION PORT A CAT H-MEDI PORT FOR CHEMO [10201 (CPT )] Start: 07-28-2024 End: 07-28-2024 Anesthesia consultation 07/28/2024 9:00 AM EDT Anesthesia Event [facility] [address] [place] [phone] Ruperto Ponce, DO [address] [place] [address] [facility] Start: 07-28-2024 End: 07-28-2024 Insj tunneled ctr vad w/subq port age 3 yr/> INSERTION PORT A CATH Malignant neoplasm of rectum (CMS-HCC) Encounter for therapeutic drug monitoring 07/28/2024 9:00 AM EDT [facility] Start: 07-28-2024 Subsequent hospital visit by physician 07/28/2024 9:00 AM EDT Hospital Encounter [facility] [address] [place] [phone] Cammie Kruse MD [address], [address] [address] [facility] Start: 06-28-2024 End: 06-28-2025 Creatine Creatine Lab Routine Adenocarcinoma of rectum (HCC) (CMS/HCC) Expected: 06/28/2024 (Approximate), Expires: 06/28/2025 [facility] Comment on above: Expected: 06/28/2024 (Approximate), Expires: 06/28/2025 Start: 06-28-2024 End: 06-28-2025 CT CHEST ABDOMEN PELVIS W IV CONTRAST CT CHEST ABDOMEN PELVIS W IV CONTRAST Imaging Routine Adenocarcinoma of rectum (HCC) (CMS/HCC) Expected: 06/28/2024, Expires: 06/28/2025 [facility] Work Phone: Comment on above: Expected: 06/28/2024 , Expires: 06/28/2025 Start: 06-28-2024 End: 06-28-2025 MR Pelvis WO and W contrast IV MR pelvis w and wo contrast Imaging Routine Adenocarcinoma of rectum (HCC) (CMS/HCC) Expected: 06/28/2024, Expires: 06/28/2025 [facility] Comment on above: Expected: 06/28/2024 , Expires: 06/28/2025 Start: 06-28-2024 End: 06-28-2024 Patient encounter procedure 06/28/2024 8:15 AM EDT Office Visit [facility] ESP[facility] [address] [place] [address] Ning Wakefield DO [address] [place] [address] Arrived [facility] ESPINO[facility] Comment on above: Arrived Start: 05-28-2024 COVID-19 Vaccine ( season) COVID-19 Vaccine ( season) [facility] Start: 05-28-2024 Influenza vaccination Influenza Vacc ine [facility] Start: 01-07-2023 Depression Screening Depression Scre ening [facility] Start: 2013 Fall Risk Screening Fall Risk Screen ing [facility] Start: 1967 Administration of varicella zoster vaccine Zoster (Shingles) Vaccine (1 of 2) [facility] Start: 1950 Tobacco Counseling Tobacco Counselin marlen [facility] Immunizations Immunization Date Immunization Notes Care Provider Noemy enriquez 06-27-2021 SARS-CoV-2 (COVID-19 ) mRNA BNT-162b2 [facility] Comment on above: Result Comment: 2023: [id number] 06-27-2021 influenza virus vaccine, unspecified formulation [facility] 01-03-2021 SARS-CoV-2 (COVID-19 ) mRNA BNT-162b2 [facility] 12-13-2020 SARS-CoV-2 (COVID-19 ) mRNA BNT-162b2 [facility] 04-16-2018 tetanus toxoid, redu mary jo diphtheria toxoid, and acellular pertussis vaccine, adsorbed [facility] 07-08-2017 influenza, high dose seasonal, preservative-free DO Ning Wakefield Work Phone: [facility] 06-07-2017 tetanus toxoid, redu mary jo diphtheria toxoid, and acellular pertussis vaccine, adsorbed DO Ning Wakefield Work Phone: [facility] Payers Date Payer Category Payer Self-pay [id number] 2022 Medicare [employer] [id number] 2022-Present [address] [place] [address] [id number] 2022 Medicare O [employer] [id number] 2022 Medicare [id number] 1959 Unknown [id number] 1948 Unknown [id number] 1948 Unknown [id number] [id number] 1948 Unknown [id number] [id number] 1948 Unknown [id number] [id number] 1948 Unknown [id number] [id number] 1948 Unknown [id number] [id number] 1948 Unknown [id number] [id number] 1948 Unknown [id number] [id number]86 1948 Unknown [id number] [id number] 1948 Unknown [id number] [id number] 1948 Unknown [id number] [id number] Medicare 1 - Medicare [facility] CGS PPS 2V [id number] [id number] Medicare Medicare [id number] [facility] [id number] Unknown [id number] Unknown [id number] [id number] Social History Date Type Detail Facility Assertion Finding of alcoh ol intake (finding) [facility] Work Phone: Assertion Gender identity finding (finding) [facility] Work Phone: Assertion Heterosexual (finding) [facility] Work Phone: Assertion [facility] Assertion Finding of sexua l orientation (finding) [facility] Work Phone: Tobacco smoking status Unknown if ever smoked [facility] Start: 08-11-2017 End: 08-11-2017 Tobacco smoking status NHIS Never smoked tobacco (finding) [facility] Start: 1950 Sex Assigned At Male [facility] Start: 1950 Sex assigned at Not on file [facility] Start: 11-07-2020 End: 07-25-2024 Gender identity Not on file [facility] [employer] [facility] Start: 12-23-2022 Tobacco use and exposure User of smokeless tobacco [facility] History of tobacco use Chews Tobacco [facility] Start: 07-25-2024 Alcoholic beverage intake Current drinker of alcohol (finding) [facility] [employer] [facility] Start: 11-07-2020 End: 07-25-2024 Alcoholic beverage intake [facility] Start: 07-25-2024 Alcohol Comment beer daily, 2- 4 cans per day and some occassional shots of whiskey [facility] Start: 11-02-2015 End: 08-17-2024 Sex Male (finding) [facility] NEGATED: Highlighted row Assertion Exposure to pollution (event) [facility] Work Phone: NEGATED: Highlighted row Assertion Tobacco user (finding) [facility] Work Phone: NEGATED: Highlighted row Assertion Finding relating to drug misuse behavior (finding) [facility] [facility] Work Phone: Medical Equipment Procedure Code [...] 06-25-2017 Lens Iol Ultrase rt 17.0d - [id number] - [id number] Start: 06-29-2023 Lens Iol Ultrase rt 18.5d - [id number] - [id number] Start: 07-13-2023 Goals Date Patient Goal Desired Activity /State Personal health goal Comment on above: Formatting of this n ote might be different from the original. Evaluation of progress towards goal: Safe transition from hospital to home. Functional Status Date Assessment Result Facility 08-15-2024 Functional Status N/A [facility] Clinical Notes 06-05-2024 to 08-15-2024 Note Date [...] h/o atrial fibrillation, on Eliquis, htn, hypercholesterolemia, [place], recently diagnosed with advanced rectal cancer, referred for ozsbss-w-ezrb for chemotherapy; no h/o previous port or [...] rectum (C20: Malignant neoplasm of rectum) plan ynnzra-z-hjmp insertion under general anesthesia, informed consent obtained. [...] SARS-CoV-2 (COVID-19) mRNA BNT-162b2 vax 12/13/2020 Recorded [facility] Comment on above: Result Comment: Elec tronically Signed By: Pranay ADAMSON MDDate and Time Signed: 08/15/24 14:12 EST 08-03-2024 Note Patient: Alexei colindres Procedure Summary Date: 08/03/24 Room / Location: [facility] Anesthesia Start: 1215 Anesthesia Stop: 1303 [...] per anesthesia protocol. No notable events documented. [facility] 08-03-2024 Note Patient: Alexei colindres Procedure Summary Date: 08/03/24 Room / Location: [facility] Anesthesia Start: 5 Anesthesia Stop: Procedure: ENDOSCOPIC ULTRASOUND (LOWER) Diagnosis: Rectal mass Scheduled Providers: Clem Gallardo MD; Fredrick Domínguez MD; LUISA Martin Responsible Provider: Fredrick Domínguez MD Anesthesia Type: MAC ASA Status: 3 Anesthesia Post [facility] Patient Monitor: direct observation Transport: uneventful Patient condition is: stable [facility] 08-03-2024 Note Patient: Alexei colindres Procedure Information Date/Time: 08/03/24 1230 Scheduled providers: Clem Gallardo MD; Fredrick Domínguez MD; LUISA Martin Procedure: ENDOSCOPIC ULTRASOUND (LOWER) Location: [facility] [place] [facility] Relevant Problems Anesthesia (within normal limits) [...] Plan discussed with CAA. Additional Equipment Requests [facility] 08-02-2024 Note Subjective Patient ID: Alexei Velasquez [...] No follow-ups on file. Elkin Shepard, MS3 [facility] 07-26-2024 Evaluation note Diagnosis Onset Date Resolution Adenocarcinoma of rectum acute July 26, 2024 12:38pm Adenocarcinoma of rectum acute August 17, 2024 9:17am [facility] Work Phone: [phone]) 918-259710-29-2024 Instructions* Patient Instructions* Casi Centeno RN - 07/25/2024 2:15 PM EDT Preoperative Education Checklist- General Surgery date: 07/28/24 Surgery time: 0900 a.m. Arrival time: 0700 a.m. 1. Bring a photo ID and your insurance card with you the day of surgery. You will check in at the main lobby of the [facility]- registration desk is straight ahead as soon as you walk in. Tell them you are here for surgery. 2. If you have a Living Will/Durable Power of Sand Control Worker for Health Care that is not on [...] after you have bathed. 5. NO nail taiwanese/acrylic on at least one finger. If you are having a hand, wrist or foot surgery then all nail taiwanese and artificial/acrylic nails must be removed from [...] please call the Preadmission Testing office at [phone], Mon.-Fri. 7 a.m.-3 p.m. Leave a voicemail [...] appointment with your doctor. [facility] Miscellaneous Notes* Perioperative Nursing Note - Casi Centeno RN - 07/25/2024 2:15 PM EDT Preoperative Education Checklist- General Surgery date: 07/28/24 Surgery time: 0900 a.m. Arrival time: 0700 a.m. 1. Bring a photo ID and your insurance card with you the day of surgery. You will check in at the main lobby of the [facility]- registration desk is straight ahead as soon as you walk in. Tell them you are here for surgery. 2. If you have a Living Will/Durable Power of Sand Control Worker for Health Care that is not on [...] after you have bathed. 5. NO nail taiwanese/acrylic on at least one finger. If you are having a hand, wrist or foot surgery then all nail taiwanese and artificial/acrylic nails must be removed from [...] please call the Preadmission Testing office at [phone], Mon.-Fri. 7 a.m.-3 p.m. Leave a voicemail [...] verbalized understanding. [facility] Nurse Note* Perioperative Nursing Note - Casi Centeno RN - 07/25/2024 2:15 PM EDT Preoperative Education Checklist- General Surgery date: 07/28/24 Surgery time: 0900 a.m. Arrival time: 0700 a.m. 1. Bring a photo ID and your insurance card with you the day of surgery. You will check in at the main lobby of the [facility]- registration desk is straight ahead as soon as you walk in. Tell them you are here for surgery. 2. If you have a Living Will/Durable Power of Sand Control Worker for Health Care that is not on [...] after you have bathed. 5. NO nail taiwanese/acrylic on at least one finger. If you are having a hand, wrist or foot surgery then all nail taiwanese and artificial/acrylic nails must be removed from [...] please call the Preadmission Testing office at [phone], Mon.-Fri. 7 a.m.-3 p.m. Leave a voicemail [...] to the follow-up appointment with your doctor. [facility]10-29-[facility] Nurse Note* Perioperative Nursing Note - Casi Centeno RN - 07/25/2024 2:15 PM EDT Hibiclens and surgical instructions reviewed. Patient verbalized understanding. [facility] [employer] [id number] Note Attestation signed by Clem Gallardo MD at 07/03/2024 9:36 AM I personally saw and examined the patient on the same date of service as resident/fellow . I discussed the findings and therapeutic plan with the resident/fellow . I agree with the documentation. [facility] Gastroenterology New Patient Visit - History & Physical CHIEF COMPLAINT Chief Complaint Patient presents with New Patient adenocarcinoma of rectum HISTORY OF PRESENT ILLNESS: Alexei Velasquez is a 73 y.o. male has hx of a-fib for that patient is on eliquis, essential hypertension who recently had ER visit for hematochezia. [facility] colonoscopy which revealed [...] PROT B12/Folate/Iron studies: No results found for: UOWRMXLD12 , FOLATE , IRON , TIBC , UIBC , IRONSAT , FERRITIN Viral Hepatitis No results found for: HEPAIGM , HAV , HEPBSAG , HEPBSAB , HEPBEAB , HEPBIGM , HEPBCAB , HEPBCOREAB , HBVNAT , HCVSCR , HEPCAB , HCVNAT , HCVPCR , HCVTMA Liver Workup No results found for: JENNIFER , SMOOTHMUSCAB , CERULOPLSM , X1RDXFBNMPH , TTGA , IGA , TSH , FREET4 , AFP Pancreatitis No results found for: AMYLASE , LIPASE , TRIG , CALCIUM ASSESSMENT AND PLAN: Alexei Velasquez is a 73 y.o. male has hx of a-fib for that patient is on eliquis, essential hypertension who recently had ER visit for hematochezia. Patient [facility] where he underwent colonoscopy which revealed [...] No complaints at t (more content not included)...[facility]10-02-2024 History of Present illness Narrative* Ning Wakefield, [...] Tobacco Use: High Risk (07/13/2023) Received from [facility] Patient History Smoking Tobacco Use: Never Smokeless Tobacco Use: Current Passive Exposure: Not on file Alcohol Use: Not on file Depression: Not at risk (01/07/2022) Received from [facility] PHQ-2 Total Score: 2 Physical Activity: Not [...] Information Document Information Other: Other PATHOLOGY [place] [facility] 00:00 Attached To: Alexei Velasquez Source [...] you, Essence Wakefield DO documented in this encounterProgress West [id number] History of Present illness Narrative* Ning Wakefield DO - 06/05/2024 10:30 AM EDT General Surgery H&P Alexei Velasquez 1950 Alexei Velasquez is a 73 y.o. male presents with chief complaint of Colonoscopy (Pt presents today for a colonoscopy. Pt states that he has never had a colonoscopy before. Pt states that he went to [facility] on 05/15 for rectal bleeding and constipation. He states that they prescribed Colace and he is still taking it and he believes it is helping. Pt gave his VIS sheet from [facility] and it states that they saw a [...] Tobacco Use: High Risk (07/13/2023) Received from [facility] Patient History Smoking Tobacco Use: Never Smokeless Tobacco Use: Current Passive Exposure: Not on file Alcohol Use: Not on file Depression: Not at risk (01/07/2022) Received from [facility] PHQ-2 Total Score: 2 Physical Activity: Not [...] you, Essence Wakefield DO documented in this encounterNOFL HealthcareEvaluation + Plan note No data available for this section [facility] Evaluation note Assessments not supported for this document type No Assessments [facility] Work Phone: Evaluation noteNo assessment information available [facility] Work Phone: Evaluation note* Diagnosis Adenocarcinoma of rectum (HCC) (CMS/HCC)- Primary documented in this encounter [facility]* Diagnosis Onset Date Resolution Status Adenocarcinoma of rectum acu te [facility] Work Phone: Evaluation note* Diagnosis Encounter for diagnostic colonoscopy due to change in bowel habits- Primary documented in this encounter [facility] HealthcareHistory of Present illness Narrative History of Present Illness not supported for this document type No History of Present Illness [facility] Work Phone: Hospital Discharge instructions No data available for this section [facility] Instructions Instructions not supported for this document type No Instructions [facility] Work Phone: patient problem outcome Narrative Includes: Evaluations & Outcomes for active Goals No Outcomes [facility] Work Phone: progress note No data available for this section [facility] Reason for referral (narrative)* Consultation (Routine) - Pending Review Specialty Diagnoses / Procedures Referred By Contac t Referred To Contact Oncology Diagnoses Adenocarcinoma of rectum (HCC) (CMS/HCC) Procedures AR OFFICE/OUTPATIENT NEW HIGH MDM 60 MINUTES Ning Wakefield, [address] [place] [address] Aimee Singh MD [address] [place] [address] Referral ID Status Reason Start Date Expiration Date Visits Requested Visits Authorized [id number] Pending Review Specialty Services Required 06/28/2024 12/25/2024 1 1 * Imaging (Routine) - Pending Review Specialty Diagnoses / Procedures Referred By Contac t Referred To Contact Radiology Diagnoses Adenocarcinoma of rectum (HCC) (CMS/HCC) Procedures MR pelvis w and wo contrast Ning Wakefield, [address] [facility] [address] [place] [address] [facility] [address] [place] [address] Referral ID Status Reason Start Date Expiration Date V isits Requested Visits Authorized [id number] Pending Review 06/28/2024 12/25/2024 1 1 * Imaging (Routine) - Pending Review Specialty Diagnoses / Procedures Referred By Contac t Referred To Contact Radiology Diagnoses Adenocarcinoma of rectum (HCC) (CMS/HCC) Procedures CT CHEST ABDOMEN PELVIS W IV CONTRAST Ning Wakefield, [address] [place] [address] [place] [address] Referral ID Status Reason Start Date Expiration Date V isits Requested Visits Authorized [id number] Pending Review 06/28/2024 12/25/2024 1 1 [facility] HealthcareReview of systems Narrative - Reported Review of Systems not supported for this document type No Review of Systems [facility] Work Phone: Summary Purpose Family History [...] DATE CREATED AUTHOR AUTHOR'S ORGANIZ ATION 06/29/2024 [facility] DATE CREATED AUTHOR AUTHOR'S ORGANIZ ATION 07/27/2024 [facility] DATE CREATED AUTHOR AUTHOR'S ORGANIZ ATION 08/04/2024 [facility] DATE CREATED AUTHOR AUTHOR'S ORGANIZ ATION 08/12/[address] [facility] DATE CREATED AUTHOR AUTHOR'S ORGANIZ ATION 09/07/2024 [facility] DATE CREATED AUTHOR AUTHOR'S ORGANIZ ATION 10/17/2024 [facility] Care Teams (unrecognized sec tion and content) Team Status: Inactive Member Role Status Dates Ning Wakefield DO Attending Provider Active Star t: June 20, 2024 End: June 20, 2024 Personal Care Worker Relationship Specialty Start Date End Date Shabnam Villarreal MD [address] [address] PCP - General Behavioral Health 06/05/24 Personal Care Worker Relationship Specialty Start Date End Date Shabnam Villarreal MD [address] [place] [address] PCP - General Behavioral Health 06/05/24 Team Status: Active Member Role Status Dates [facility] Active Team Status: Inactive Member Role Status Dates Angelina Tomlinson MD Attending Provider Active Start: July 26, 2024 End: July 26, 2024 [facility] Active Start: July 26, 2024 End: July 26, 2024 Aimee Singh MD Referring Provider Active St art: July 26, 2024 End: July 26, 2024 Team Status: Active Member Role Status Dates [facility] Active Start: July 26, 2024 Angelina Tomlinson MD Attending Provider Active Start: July 26, 2024 Aimee Singh MD Referring Provider Active St art: July 26, 2024 Personal Care Worker Relationship Specialty Start Date End Date Raffi Byrd MD [address] [place] [address] PCP - General Internal Medicine 01/01/22 Team Status: Inactive Member Role Status Dates [facility] Primary Care Provider Active Start: August 17, 2024 End: August 17, 2024 Angelina Tomlinson MD Attending Provider Active Start: August 17, 2024 End: August 17, 2024 Team Status: Active Member Role Status Dates [facility] Primary Care Provider Active Start: August 17, 2024 Angelina Tomlinson MD Attending Provider Active Start: August 17, 2024 Aimee Singh MD Referring Provider Active St art: August 17, 2024 Personal Care Worker Relationship Specialty Start Date End Date Shabnam Villarreal MD [address] [place] [address] PCP - [facility] 06/05/24 Personal Care Worker Relationship Specialty Start Date End Date Shabnam Villarreal MD [address] [place], [place] [id number] PCP - General [facility] 06/05/24 Goals (unrecognized section and [...] before. Pt states that he went to [facility] ER on 05/15 for rectal bleeding and constipation. He states that they prescribed Colace and he is still taking it and he believes it is helping. Pt gave his VIS sheet from [facility] and it states that they saw a [...] BE BASED ON THE PRIMARY CLINICAL RECORDS. [employer] provides no warranty or guarantee of the accuracy or completeness of information in this document.
[2024-11-01] MEDS: HEPARIN SODIUM (PORCINE) PF LOCK FLUSH 500 UNIT/5 ML SYRINGE IV (11:00)
--- NOTE | 2024-11-01 11:11 | PC.NURSE ---
1050 Swabbed port for 30 seconds with Chloraprep. Accessed with Mirza needle and good blood return and NS flushes easily. Pt given Dotarem for MRI w/ contrast and pt tolerated well. Flushed with 10 cc NS and then 5 cc Heparin. Mirza removed with needle intact.
== END 2024-11-01 09:30 | disposition home or self-care (01) ==
LOC: MRI 09:29
PROVIDERS: Visit Provider Internal Medicine Hematology & Oncology
DX: C20 Malignant neoplasm of rectum (principal); D64.9 Anemia, unspecified; R11.2 Nausea with vomiting, unspecified; D50.9 Iron deficiency anemia, unspecified; K90.9 Intestinal malabsorption, unspecified
CPT/HCPCS: 72197; A9575; J1642

== ENCOUNTER 2024-11-16 07:34 | Outpatient (RCR) | payer MEDICARE, SELFPAY ==
[2024-11-07 09:20] VITALS: BP 139/83; PULSE 89; TEMP 37.5; O2SAT 93
[2024-11-07 09:46] LABS: Hemoglobin 11.4 g/dL (14.0-18.0); Mean Corpuscular HGB Conc 33.5 g/dL (29.9-35.2); Mean Corpuscular Hemoglobin 29.7 pg (25.9-34.0); Mean Corpuscular Volume 88.5 fL (80.0-94.0); Mean Platelet Volume 10.1 fL (9.5-13.5); Platelet Count 127 10^3/uL (150-450); Red Blood Count 3.84 10^6/uL (4.70-6.10); White Blood Count 8.8 10^3/uL (4.0-11.0)
[2024-11-07] MEDS: HEPARIN SODIUM (PORCINE) PF LOCK FLUSH 500 UNIT/5 ML SYRINGE IV (09:55)
[2024-11-07 10:01] LABS: Anisocytosis 2+; Lymphocytes Absolute Manual 0.61 10^3/uL (1.20-3.80); Monocytes Absolute Manual 1.05 10^3/uL (0.30-0.80); Segmented Neut Absolute Manual 7.12 10^3/uL (1.4-6.5)
--- NOTE | 2024-11-07 10:06 | XR_ITS ---
The [address] [address] Patient Name: ROLDAN COTE MRN: [id number] date: 1950 Sex: M Assigned Patient Location: [facility] Current Patient Location: [facility] Accession/Order Number: [id number] Exam Date: 11/07/2024 10:01 Report Date: 11/07/2024 10:19 At the request of: NEYMAR LERMA Procedure: XR chest 2V EXAMINATION: XR chest 2V HISTORY: Cough, Fever, Colorectal Cancer On Chemo COMPARISON: 06/04/2020 TECHNIQUE: PA and lateral FINDINGS: LUNGS: Increased interstitial lung markings, grossly stable. No focal parenchymal infiltrates VASCULATURE: No increased pulmonary vasculature. PLEURA: No pneumothorax, effusion, or pleural thickening. CARDIAC: No cardiomegaly or cardiac silhouette abnormality. MEDIASTINUM: No visible mass or adenopathy. Right Port-A-Cath tip projects over the mid superior vena cava BONES: Mild degenerative disc disease and spondylosis without visible acute abnormalities. OTHER: Negative. XR/XR chest 2V IMPRESSION: Chronic interstitial changes No new focal infiltrate Electronically authenticated by: GRAHAM LINN Date: 11/07/2024 10:19
[2024-11-07 10:08] LABS: Alanine Aminotransferase 23 U/L (16-63); Albumin Globulin Ratio 0.8; Alkaline Phosphatase 101 U/L (46-116); Anion Gap 12.1; Aspartate Amino Transferase 27 U/L (15-37); BUN Creatinine Ratio 14.1; Bilirubin Total 0.6 mg/dL (0.2-1.0); Calcium 8.5 mg/dL (8.5-10.1); Carbon Dioxide 28.4 mmol/L (21.0-32.0); Chloride 95 mmol/L (98-107); Estimated GFR (African America >60 (>=60 mL/min/1.73m^2); Estimated GFR (Non-African Ame >60 (>=60 mL/min/1.73m^2); Glucose 114 mg/dL (74-106); Magnesium 1.7 mg/dL (1.8-2.4); Potassium 3.5 mmol/L (3.5-5.1); Sodium 132 mmol/L (136-145)
--- NOTE | 2024-11-07 10:18 | PC.NURSE ---
Pt here for C.5 Folfox. Labs drawn from port. Assessment complete, pt c/o cough, sneezing, nasal drainage - clear/yellow x 3 days. TOBY wheezing noted on auscultation. Dr. Singh notified, pt was seen by . Order rec'd to hold chemo x [address] Singh also sent ATB to pt outpt pharm, chest xray ordered. Port flushed, heplocked and florian needle d/c'd. Pt d/c'd stable and sent to radiology for xray. Returns next wk on 11/14 for C.5 tx.
[2024-11-14 08:36] LABS: Basophils Percent Auto 0.5 % (0.2-2.0); Eosinophils Absolute Auto 0.2 10^3/uL (0.0-0.7); Eosinophils Percent Auto 2.9 % (0.9-7.0); Hematocrit 34.6 % (42.0-54.0); Hemoglobin 11.7 g/dL (14.0-18.0); Immature Granulocytes Abs Auto 0.06 10^3/uL (0.00-0.03); Immature Granulocytes Pct Auto 1.1 % (0.0-0.5); Lymphocytes Absolute Auto 1.6 10^3/uL (1.2-3.8); Lymphocytes Percent Auto 29.9 % (20.5-60.0); Mean Corpuscular HGB Conc 33.8 g/dL (29.9-35.2); Mean Corpuscular Hemoglobin 30.2 pg (25.9-34.0); Mean Corpuscular Volume 89.4 fL (80.0-94.0); Mean Platelet Volume 9.4 fL (9.5-13.5); Monocytes Percent Auto 18.6 % (1.7-12.0); Neutrophils Absolute Auto 2.6 10^3/uL (1.4-6.5); Platelet Count 205 10^3/uL (150-450); Red Blood Count 3.87 10^6/uL (4.70-6.10); White Blood Count 5.5 10^3/uL (4.0-11.0)
[2024-11-14 08:41] VITALS: BP 127/77; PULSE 51; TEMP 36.8; O2SAT 98
[2024-11-14 08:56] LABS: Alanine Aminotransferase 20 U/L (16-63); Albumin Globulin Ratio 0.6; Albumin Level 2.7 g/dL (3.4-5.0); Alkaline Phosphatase 114 U/L (46-116); Anion Gap 11.6; Aspartate Amino Transferase 32 U/L (15-37); Bilirubin Total 0.4 mg/dL (0.2-1.0); Calcium 8.5 mg/dL (8.5-10.1); Carbon Dioxide 27.8 mmol/L (21.0-32.0); Chloride 97 mmol/L (98-107); Estimated GFR (African America >60 (>=60 mL/min/1.73m^2); Estimated GFR (Non-African Ame >60 (>=60 mL/min/1.73m^2); Globulin 4.2 g/dL; Glucose 107 mg/dL (74-106); Magnesium 1.7 mg/dL (1.8-2.4); Potassium 3.4 mmol/L (3.5-5.1); Sodium 133 mmol/L (136-145); Total Protein 6.9 g/dL (6.4-8.2)
[2024-11-14] MEDS: DEXTROSE 5 % IN WATER 250 ML 10 ML IV (09:50)
[2024-11-14] MEDS: PALONOSETRON HCL 0.25 MG/5 ML VIAL IV (09:55)
[2024-11-14] MEDS: DEXAMETHASONE SODIUM PHOSPHATE 10 MG in 0.9 % SODIUM CHLORIDE 100 ML 303 MG IV (09:56)
[2024-11-14] MEDS: OXALIPLATIN IV (10:24)
[2024-11-14] MEDS: DEXTROSE 5% IV ×2 (10:24)
[2024-11-14] MEDS: WATER IV ×2 (10:24)
[2024-11-14] MEDS: LEUCOVORIN CALCIUM IV (10:24)
[2024-11-14] MEDS: POTASSIUM CHLORIDE 10 MEQ ER TABLET 20 MEQ PO (12:40)
[2024-11-14] MEDS: FLUOROURACIL IV (12:41)
[2024-11-14] MEDS: SODIUM CHLORIDE 0.9% IV (12:41)
--- NOTE | 2024-11-14 13:16 | PC.NURSE ---
Pt here for C.5 folfox. Labs drawn from port , results reviewed. Pt upper respiratory symptoms improved from last wk. Pt has 2-3 ATB pills left to complete. Dr. Singh in to see pt. Order rec'd to proceed with tx today. Give KCL 20meq po x 1 for K+=3.4. Pt tolerated tx w/o incident and d/c'd in stable condition.
[2024-11-16] MEDS: HEPARIN SODIUM (PORCINE) PF LOCK FLUSH 500 UNIT/5 ML SYRINGE IV (13:15)
== END 2024-11-24 23:59 | disposition home or self-care (01) ==
LOC: HEMC 07:34
PROVIDERS: Visit Provider Internal Medicine Hematology & Oncology
DX: Z51.11 Encounter for antineoplastic chemotherapy (principal); C20 Malignant neoplasm of rectum; D64.9 Anemia, unspecified; D50.9 Iron deficiency anemia, unspecified; K90.9 Intestinal malabsorption, unspecified; R05.1 Acute cough; F17.220 Nicotine dependence, chewing tobacco, uncomplicated; K92.1 Melena; R91.1 Solitary pulmonary nodule
CPT/HCPCS: 36415; 36591; 71046; 80053; 83735; 85007; 85025; 85027; 96367; 96368; 96375; 96413; 96415; 96416; G0463; J0640; J1100; J1642; J2469; J9190; J9263

== ENCOUNTER 2024-11-17 13:16 | Outpatient (OUT) | payer MEDICARE, SELFPAY ==
--- NOTE | 2024-11-17 13:20 | XR_ITS ---
The [place] [id number] Patient Name: ROLDAN COTE MRN: [id number] date: 1950 Sex: M Assigned Patient Location: [facility] Current Patient Location: [facility] Accession/Order Number: [id number] Exam Date: 11/17/2024 13:35 Report Date: 11/17/2024 13:42 At the request of: NEYMAR LERMA MD Procedure: XR chest 2V XR chest 2V 11/17/2024 1:32 PM SIGNS AND SYMPTOMS: Persistent cough, congestion, colon cancer PROTOCOL: Frontal and lateral radiographs of the chest COMPARISON: 11/07/2024 FINDINGS: The trachea is midline. There is a right-sided Ozquki-b-Qrnu with the tip in the superior vena cava near the cavoatrial junction similar to the prior exam. No pneumothorax. The heart and mediastinal structures are within normal limits. Interstitial prominence is noted bilaterally with hazy airspace opacities degenerative changes are noted in the shoulders and thoracic spine. The bony thorax is intact. XR/XR chest 2V IMPRESSION: Mild hazy airspace opacities are present possibly representing an infectious infiltrate or edema. This is unchanged. Chronic illnesses prominence is redemonstrated. Impression dictated by: Zhao Smith M.D.11/17/2024 1:42 PM Dictation Location: [place] [address] Electronically authenticated by: [id number] Y Date: 11/17/2024 13:42
--- OUTSIDE RECORDS SUMMARY | 2024-11-17 13:21 | XMS_ITS | CCD ---
Author Organization [facility] Inform ion [facility] Care Team Providers Care [place] Assessor Name Role Phone KAMALJIT SILVA Primary Care Unavailable MISC, DOCTOR Primary Care Unavailable SAVANNAH HERNÁNDEZ Admitting Unavailable SAVANNAH HERNÁNDEZ Attending Unavailable BLAIR KOCH Consulting Unavailable GRAHAM LINN V Consulting Unavailable ROHIT BRIZUELA Consulting Unavailable SAVANNAH HERNÁNDEZ Consulting Unavailable GIBRAN WAY Consulting Unavailable Chelsy Rosales CNP Primary Care Provider [phone] DO Ning Wakefield Attending Provider [phone] NING WAKEFIELD Attending Unavailable NING WAKEFIELD Attending Unavailable Phil MINAYA, [facility] Primary Care Provide r [facility], [facility] Primary Care Provider MD Angelina Tomlinson Attending Provider MD Aimee Singh Referring Provider KHORSAND MELISSA, RAFFI Referring Unavailabl e [...] Care Physician Ning Wakefield DO Attending Provider [facility] Angelina Tomlinson MD Attending Provider Aimee Singh MD Referring Provider [phone] FRANCISCO, AIMEE Primary Care Unavailable FRANCISCO, AIMEE Primary Care Unavailable Pranay ADAMSON Attending Unavailable FRANCISCO, AIMEE Primary Care Unavailable FRANCISCO, AIMEE Referring Unavailable Pranay ADAMSON Attending Unavailable FRANCISCO, AIMEE Primary Care Unavailable Pranay ADAMSON Attending Unavailable Ning Wakefield Attending Unavailable Ning Wakefield Admitting Unavailable Angelina Tomlinson Admitting Unavailable [facility] Unavailable Francisco, Aimee Referring Unavailable Angelina Tomlinson Attending Unavailable Jesu Gilbert MD, [facility] Primary Care Provider Allergies Allergy Classification Reported Allergen(s) Allergy Type Date of Onset Reaction(s) Facility (1 source) -No Known Enviornmental Allergies; Translations: [-No Known Enviornmental Allergies] Allergy to substance 9 [facility] Work Phone: (1 source) No Known Medication Allergies; Translations: [No Known Medication Allergies] Propensity to adverse reactions (disorder) [facility] Repository Medications Current Medications Medication Drug [...] (7 sources) Thiazide Diuretic, Angiotensin 2 Receptor Lely Start: 08-14-2024 take 1 tablet by ad [...] 12-07-2018 Magnesium 250MG Oral Tablet 12/07/2018 Provider: [place] (No Known Home Meds) (1 source) Start: 06-29-2017 [place] (No Known Home Meds) Active June 29, 2017 12:00am polyethylene glycol 3350 21192 mg powder for oral solution (2 sources) [...] anxiety disorder; Translations: [Generalized anxiety disorder] Onset: 01-08-2008-14-2024 Chronic Cancer of rectum and anus (12 [...] UNSPEC] Onset: 06-12-20 Epilepsy; convulsions (3 sources) Posttraumatic seizure; Translations: [Seizure] Onset: 12-01-1908-14-2024 Episodic Esophageal disorders (1 source) Gastroesophageal reflux [...] unspecified] 07-01-2017 Episodic Other aftercare (1 source) 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 (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; Translations: [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 CURRENT USE OF ASPIRIN] Onset: 06-12-20 Episodic Other aftercare (1 source) Other snf (current) drug therapy; Translations: [OTH 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 CURRENT DRUG THERAPY] Onset: 06-12-20 Episodic Other [...] sources) Essential tremor; Translations: [Essential tremor] Onset: 01-08-2008-14-2024 Chronic Other non-traumatic joint disorders (3 sources) [...] more but less than 30 08-15-2024 Episodic Residual codes; unclassified (3 sources) Delirium; [...] Other Problems Problem Classification Problem Date Documented Date Episodic/Chronic Mood disorders (1 source) Mood disorders Onset: 01-07-2022 01-07-2022 Other nutritional; endocrine; and metabolic disorders (1 source) Finding of body mass index; Translations: [Body mass index [BMI]] Onset: 12-07-2018 Episodic Other screening for suspected conditions (not mental disorders or infectious disease) (2 sources) Electrocardiogram abnormal; Translations: [Abnormal electrocardiogram [ECG] [EKG]] Onset: 11-19-2015 05-13-2018 Episodic Pneumonia (except that caused by tuberculosis [...] post operative follow up post insertion of Rscvxl-m-ivym. Denies discomfort, no use of pain medication. Denies bleeding or drainage. Port has been accessed without incident. Plan to start chemotherapy in 6 days. History of Present Illness 1 week s/p right external jugular rzkppz-j-anlq insertion; doing well, mild soreness; no pain [...] (COVID-19) mRNA BNT-162b2 vax 12/13/2020 Recorded Normal [facility] Comment on above: Result Comment: Elec [...] you for choosing us for your care. [facility] HPon 08-03-2024 History Of Present Illness [...] rectal endoscopic ultrasound for local staging Normal [facility] POCT GLUCOSE METER UNSOLICIT ED RESULTSon 08-03-2024 Glucose [Mass/Vol] 104 mg/dL Normal 70-105 [facility] Comment on above: Order Comment: Waive d Testing in the ED is performed under the ED CLIA certificate #[id number]. Result Comment: acle ment Performed By: #### L [id number] #### [facility] ([facility]AKER) [address] [place] [address] Consulton 08-02-2024 Consult [id number] Paul Velasquez 1950 M Date Provider Department Center 08/02/2024 DELMA WALSH [facility] SURG Second Fl No family history on file Level of Service:31869 [place] OFFICE/OUTPATIENT NEW MODERATE MDM 45 MINUTES Reason for Visit and Comments: Rectal Cancer [254] Normal [facility] Orders Onlyon 08-02-2024 Orders Only [id number] Paul Velasquez ld 1950 M Date Provider Department Center 08/02/2024 [id number], HISTORICAL [facility] PAT NM Medical C No family history on file Normal [facility] Orders Onlyon 08-01-2024 Orders Only [id number] Paul Velasquez ld 1950 M Date Provider Department Center 08/01/2024 [id number] GRANADOS [facility] GIS GEORGEI No family history on file Normal [facility] SURGICAL PATHOLOGY REFERENCE LAB CONSULTon 08-01-2024 CASE REPORT Normal [facility] Comment on above: Order Comment: Speci men Type: FORMALIN-FIXED PARAFFIN-EMBEDDED TISSUE SPECIMEN Ordering Facility: [facility] Address: [address] [place] [address] Result Comment: Surg ical Pathology Report Case: [id number] Authorizing Provider: Aimee Singh MD Collected: 08/01/2024 03:44 PM Ordering Location: [facility] Received: 08/01/2024 03:44 PM [facility] Pathologist: Masoud Denson MD Specimen: Slide(s), 4 SLIDES [id number] Performed By: #### L [id number] #### [facility] CLIA [id number] [address] [place] [address] [place] CLINICAL HISTORY CONSULT REQUESTED Normal C [facility] Comment on above: Order Comment: Speci men Type: FORMALIN-FIXED PARAFFIN-EMBEDDED TISSUE SPECIMEN Ordering Facility: [facility] Address: [address] [place] [address] Performed By: #### L [id number] #### [facility] CLIA [id number] [address] [place] [address] [place] DIAGNOSIS COMMENT Normal [facility] Comment on above: Order Comment: Speci men Type: FORMALIN-FIXED PARAFFIN-EMBEDDED TISSUE SPECIMEN Ordering Facility: [facility] Address: [address] [place] [address] Result Comment: Than k you for allowing [...] do not hesitate to contact us at [phone] with questions or if additional follow-up information becomes available. This case was reviewed in conjunction with the GI pathology fellow, Patt Duarte M.D. Performed By: #### L [id number] #### [facility] CLIA [id number] [address] [place] [address] FINAL DIAGNOSIS Normal [facility] Comment on above: Order Comment: Speci men Type: FORMALIN-FIXED PARAFFIN-EMBEDDED TISSUE SPECIMEN Ordering Facility: [facility] Address: [address] [place], [place] [address] [address] Result Comment: Rect al mass, biopsy (A1): - At least intramucosal adenocarcinoma. - See comment G/MANISH 08/02/24 Performed By: #### L [id number] #### [facility] CLIA [id number] [address] [place] [address] FINAL PERFORMING LAB Normal [facility] Comment on above: Order Comment: Speci men Type: FORMALIN-FIXED PARAFFIN-EMBEDDED TISSUE SPECIMEN Ordering Facility: [facility] Address: [address] [place] [address] [place] [address] Result Comment: Diag nostic interpretation performed at: [facility], [address] [place] [address] CLIA# [id number] Sales And Customer Relations Rep: Jluis Villafuerte MD Performed By: #### L [id number] #### [facility] CLIA [id number] [address] [place], [place] [address] [address] [place] BASIC METABOLIC PANLon 07-25 Anion gap [Moles/Vol] 8 mmol/L Normal 5-15 [facility] Comment on above: Performed By: #### P INR, 49219-2 #### [facility] ([id number]) [address] [place] [address] #### CBC, BMP #### [facility] ([id number]) [address] [place] [address] Calcium [Mass/Vol] 9.2 mg/dL Normal 8.5-10.5 [facility] Comment on above: Performed By: #### P INR, 60393-3 #### [facility] ([id number]) [address] [place] [address]16 #### CBC, BMP #### [facility] ([id number]) [address] [place] [address] Chloride [Moles/Vol] 103 mmol/L Normal 98-109 [facility] Comment on above: Performed By: #### P INR, 99466-4 #### [facility] ([id number]) [address] [place] [address]3068 #### CBC, BMP #### [facility] ([id number]) [address] [place] [address] CO2 [Moles/Vol] 26 mmol/L Normal 22-32 [facility] Comment on above: Performed By: #### P INR, 63988-3 #### [facility] ([id number]) [address] [place] [address] 26692 #### CBC, BMP #### [facility] ([id number]) [address] [place] [address] Creatinine [Mass/Vol] 0.91 mg/dL Normal 0.60-1.30 [facility] Comment on above: Result Comment: METH OD TRACEABLE TO IDMS STANDARD Performed By: #### P INR, 34028-3 #### [facility] ([id number]) [address] [place] [address]807 #### CBC, BMP #### [facility] ([id number]) [address] [place] [address] GFR/1.73 sq M.predicted among non-blacks MDRD (S/P/Bld) [Vol rate/Area] 87 mL/min/{1.73_m2} Normal >59 [facility] Comment on above: Result Comment: Reported eGFR is based on the CKD-EPI 2020 equation that does not use a race coefficient. Performed By: #### P INR, 54921-5 #### [facility] ([id number]) [address] [place] [address]156 #### BASILIO, BMP #### [facility] ([id number]) [address] [place] [address] Glucose [Mass/Vol] 103 mg/dL High 65-99 [facility] Comment on above: Performed By: #### P INR, 65180-2 #### [facility] ([id number]) [address] [place] [address]99 #### CBC, BMP #### [facility] ([id number]) [address] [place] [address] Potassium [Moles/Vol] 5.1 mmol/L High 3.5-5.0 [facility] Comment on above: Performed By: #### P INR, 08787-6 #### [facility] ([id number]) [address] [place] [address] 48274 #### CBC, BMP #### [facility] ([id number]) [address] [place] [address] Sodium [Moles/Vol] 137 mmol/L Normal 134-146 [facility] Comment on above: Performed By: #### P INR, 12240-5 #### [facility] ([id number]) [address] [place] [address] 26116 #### CBC, BMP #### [facility] ([id number]) [address] [facility], [address] [place] [address] Urea nitrogen [Mass/Vol] 10 mg/dL Normal 5-27 [facility] Comment on above: Performed By: #### P INR, 39751-1 #### [facility] ([id number]) [address] [place] [address] 33006 #### CBC, BMP #### [facility] ([id number]) [address], [address] [place] [address] COMPLETE BLOOD COUNTon 07-25 Erythrocyte distribution width (RBC) [Ratio] 16.5 % High 11.5-15.0 [facility] Comment on above: Performed By: #### P INR, 80776-3 #### [facility] ([id number]) [address] [place] [address] 67307 #### CBC, BMP #### [facility] ([id number]) [address] [place] [address] Hematocrit (Bld) [Volume fraction] 30.0 % Low 39-49 [facility] Comment on above: Performed By: #### P INR, 52205-0 #### [facility] ([id number]) [address] [place] [address] 66822 #### CBC, BMP #### [facility] ([id number]) [address] [place] [address] Hemoglobin (Bld) [Mass/Vol] 10.0 g/dL Low 13.0-17.0 [facility] Comment on above: Performed By: #### P INR, 82534-1 #### [facility] ([id number]) [address] [place] [address] 15015 #### CBC, BMP #### [facility] ([id number]) [address] [place] [address] MCH (RBC) [Entitic mass] 28.2 pg Normal 27-34 [facility] Comment on above: Performed By: #### P INR, 57534-9 #### [facility] ([id number]) [address] [place] [address] 69320 #### CBC, BMP #### [facility] ([id number]) [address] [place] [address] MCHC (RBC) [Mass/Vol] 33.2 g/dL Normal 32-36 [facility] Comment on above: Performed By: #### P INR, 92742-8 #### [facility] ([id number]) [address] [place] [address] 49028 #### CBC, BMP #### [facility] ([id number]) [address] [place] [address] MCV (RBC) [Entitic vol] 85 fL Normal 80-100 [facility] Comment on above: Performed By: #### P INR, 52485-0 #### [facility] ([id number]) [address] [place] [address] 82439 #### CBC, BMP #### [facility] ([id number]) [address] [place] [address] Platelet mean volume (Bld) [Entitic vol] 8.3 fL Normal 7-12 [facility] Comment on above: Performed By: #### P INR, 01251-9 #### [facility] ([id number]) [address] [place] [address] 88520 #### CBC, BMP #### [facility] ([id number]) [address] [place] [address] Platelets (Bld) [#/Vol] 296 10*3/uL Normal 150-450 [facility] Comment on above: Performed By: #### P INR, 90446-4 #### [facility] ([id number]) [address] [place] [address] 43099 #### CBC, BMP #### [facility] ([id number]) [address] [place] [address] RBC COUNT 3.53 X10E12/L Low 4.10-5.70 [facility] Comment on above: Performed By: #### P INR, 27005-5 #### [facility] ([id number]) [address] [place] [address] 14200 #### CBC, BMP #### [facility] ([id number]) [address] [place] [address] WBC (Bld) [#/Vol] 6.4 10*3/uL Normal 4.0-11.0 [facility] Comment on above: Performed By: #### P INR, 00947-6 #### [facility] ([id number]) [address] [place] [address] 61181 #### CBC, BMP #### [facility] ([id number]) [address] [place] [address] PROTIME AND INRon 07-25-2024 INR Coag (PPP) [Relative time] 1.1 {INR} Normal 0.8-1.1 [facility] Comment on above: Performed By: #### P INR, 24568-7 #### [facility] ([id number]) [address] [place] [address] 19585 #### CBC, BMP #### [facility] ([id number]) [address] [place] [address] PT Coag (PPP) [Time] 13.1 s Normal 9.8-13.2 [facility] Comment on above: Result Comment: NEW REFERENCE RANGE Performed By: #### P INR, 06216-9 #### [facility] ([id number]) [address] [place] [address] 20012 #### CBC, BMP #### [facility] ([id number]) [address], [address] [place] [address] aPTT Coag (PPP) [Time]on aPTT Coag (Bld) [Time] 35 s Normal 26-37 [facility] Comment on above: Result Comment: NEW REFERENCE RANGE Performed By: #### P INR, 11229-4 #### [facility] ([id number]) [address] [place] [address] 92510 #### CBC, BMP #### [facility] ([id number]) [address] [place] [address] Office Visiton 06-30-2024 Follow-up visit [id number] Paul Velasquez 1950 M Date Provider Department Center 06/30/2024 Noemy-CLEM GALLARDO [facility] GI [facility] No family history on file Level of Service:38511 [place] OFFICE/OUTPATIENT NEW MODERATE MDM 45 MINUTES (GC) Reason for Visit and Comments: 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 Normal [facility] 06-20-2024 L Specimen: [id number] Received: 06/20/24 Status: CECILIA Garza Num: [id number] Spec Type: Surgical Subm Dr: Ning Wakefield DO Tissues: A Colon Biopsy (RECTAL MASS BX AT 5CM) Procedures: HE/4, Gross/Micro L4 Age/ Patient Sex Location Account Attending Physician Alexei Velasquez 73/M LABELL [id number] Ning Wakefield DO SPEC NUM: [id number] RECD: 06/20/24 STATUS: CECILIA GARZA NUM: [id number] ANITA: 06/20/[address] [facility] [address]: Ning Wakefield DO ENTERED: 06/20/[address]: Luana Brown SPEC TYPE: Surgical DEPT: [facility] ENTERED BY: [id number] RECV BY: [id number] ORDERED: HE/4, Gross/Micro L4 ORDERED: HE/4, Gross/Micro L4 Supplemental Report Addendum 3 Entered: 08/02/24 Supplemental for findings of consultation report from [facility] -At least intramucosal adenocarcinoma -See comment Addendum Signed (signature on file) Kristian Sánchez MD 08/02/241806 Addendum 2 Entered: 07/28/24 Supplemental for findings of summary of detected somatic alterations, immunotherapy biomarkers and associated treatment options from [place] [address] [employer] Detected alterations/biomarkers associated FDA approved therapies clinical trial availability KRAS T50I Cetuximab, Panitumumab Yes SERGEY [id number] Olaparib, Talazoparib Yes APC E893 None Yes FBXW7 G219fs None Yes Specimen: [id number] Received: 06/20/24 Status: CECILIA Garza Num: [id number] Spec Type: Surgical Subm Dr: Ning Wakefield DO Tissues: A Colon Biopsy (RECTAL MASS BX AT 5CM) Procedures: RASHAUN/Devan, Gross/Micro L4 Patient: Alexei Velasquez [id number] (Continued) Specimen: [id number] Received: 06/20/24 (Continued) Supplemental Report (Continued) Signed (signature on file) Mumtaz Amor MD 06/22/24 1845 Specimen: [id number] Received: 06/20/24 Status: CECILIA Garza Num: [id number] Spec Type: Surgical Subm Dr: Ning Wakefield DO Tissues: A Colon Biopsy (RECTAL MASS BX AT 5CM) Procedures: HE/4, Gross/Micro L4 Patient: Alexei Velasquez [id number] (Continued) Specimen: [id number] Received: 06/20/24 (Continued) Supplemental Report (Continued) APC [id number] None Yes TP53 W91fs None Yes Note: -Also see entire report on file for detailed information Addendum Signed (signature on file)____John Sánchez MD 07/28/24848 Addendum 1 Entered: 07/28/24 Supplemental for findings of PD-L1 22C3 by immunohistochemistry from [address] -Combined positive score (CPS): 5 -Please also see [place] PD-L1 22C3 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 Specimen: [id number] Received: 06/20/24 Status: CECILIA Kayla Num: [id number] Spec Type: Surgical Subm Dr: Ning Wakefield DO Tissues: A Colon Biopsy (RECTAL MASS BX AT 5CM) Procedures: Alverto WHYTE/Lily L4 Patient: Alexei Velasquez [id number] (Continued) Specimen: [id number] Received: 06/20/24 (Continued) Signed (signature on file) Mumtaz Amor MD 06/22/24 1845 Specimen: [id number] Received: 06/20/24 Status: CECILIA Garza Num: [id number] Spec Type: Surgical Subm Dr: Ning Wakefield, DO Tissues: A Colon Biopsy (more content not included)... Normal [facility] Physician [facility] CT CSPINE WO CONon 0 CT CSPINE [...] by: GIBRAN WAY Date: 2020-06-04 23:44 Normal [facility] CT HEAD WO CONon 06-05-2020 CT [...] by: GRAHAM LINN Date: 2020-06-04 22:07 Normal [facility] XR CHEST 1 Von 06-05-2020 XR [...] by: GRAHAM LINN Date: 2020-06-04 22:13 Normal [facility] XR PELVIS 1_2 VIEWSon 2019 XR PELVIS 1_2 VIEWS EXAMINATION: XR PELVIS 1_2 VIEWS HISTORY: Altered mental status COMPARISON: No relevant comparison available. FINDINGS: BOWEL GAS PATTERN: No abnormal dilation or deviation. CALCIFICATIONS: None significant. OTHER: No acute fracture. Mild bilateral hip osteoarthropathy. Mild spondylosis of the spine IMPRESSION: No definite acute fracture Electronically authenticated by: GRAHAM LINN Date: 2020-06-04 22:16 Normal [facility] XR SHOULDER LT 2V or >on [...] GRAHAM LINN Date: 2020-06-04 22:15 Normal [facility] CARDIAC SHANE ADMITon 020 CK [Catalytic activity/Vol] 84 U/L Normal 55-170 [facility] Comment on above: Performed By: #### C HARINI WEST, CMADM #### [facility] [address] [place], [place] [address] Marielena Arianna CK.MB [Mass/Vol] 1.08 ng/mL Normal <=2.37 [facility] Comment on above: Performed By: #### C HARINI WEST, CMADM #### [facility] [address] [place], [place] [address] Marielena Arianna INR Coag (Bld) [Relative time] SEE BELOW Normal [facility] Comment on above: Result Comment: <0.0 34 ng/ml NEGATIVE 0.034-0.119 INDETERMINATE 0.120 AMI CUT OFF Performed By: #### C HARINI WEST, CMADM #### [facility] [address] [place] [address] Marielena Arianna KWABENA 58.0 ng/mL Normal <=121.0 [facility] Comment on above: Performed By: #### C HARINI WEST, CMADM #### [facility] [address] [place], [place] [address] Marielena Arianna TROP <0.012 Normal <=0.034 [facility] Comment on above: Performed By: #### C HARINI WEST, CMADM #### [facility] [address] [place], [place] [address] Marielena Arianna CBC AUTO DIFFon 06-04-2020 Basophils (Bld) [#/Vol] 0.1 103/ul Normal 0.0-0.1 [facility] Comment on above: Performed By: #### C BC #### [facility] [address] [place], [place] [address] Marielena Arianna Basophils/100 WBC (Bld) 1.5 % Normal 0.2-2.0 [facility] [facility] Comment on above: Performed By: #### C BC #### [facility] [address] [place], [place] [id number] Marielena Arianna Eosinophils (Bld) [#/Vol] 0.1 103/ul Normal 0.0-0.7 [facility] Comment on above: Performed By: #### C BC #### [facility] [address] [place] [address] Marielena Arianna Eosinophils/100 WBC (Bld) 2.6 % Normal 0.9-7.0 [facility] Comment on above: Performed By: #### C BC #### [facility] [address] [place] [address] Marielena Arianna Erythrocyte distribution width (RBC) [Ratio] 13.3 % Normal 11.0-15.0 [facility] Comment on above: Performed By: #### C BC #### [facility] [address] [place] [address] Marielena Arianna Hematocrit (Bld) [Volume fraction] 39.5 % Critically low 42.0-54.0 [facility] Comment on above: Performed By: #### C BC #### [facility] [address] [place] [address] Marielena Arianna Hemoglobin (Bld) [Mass/Vol] 13.3 g/dL Critically low 14.0-18.0 [facility] Comment on above: Performed By: #### C BC #### [facility] [address] [place] [address] Marielena Arianna IG # 0.02 10e3/ul Normal 0.00-0.03 [facility] Comment on above: Performed By: #### C BC #### [facility] [address] [place] [address] Marielena Arianna IG % 0.4 % Normal 0.0-0.5 [facility] Comment on above: Performed By: #### C BC #### [facility] [address] [place] [address] Marielena Arianna Lymphocytes (Bld) [#/Vol] 1.7 103/ul Normal 1.2-3.8 [facility] Comment on above: Performed By: #### C BC #### [facility] [address] [place] [address] Marielena Arianna Lymphocytes/100 WBC (Bld) 38.0 % Normal 20.5-60.0 [facility] Comment on above: Performed By: #### C BC #### [facility] [address] [place], [place] [id number] Marielenaemma Keller MANUAL DIFF REQ NO Normal [facility] Comment on above: Performed By: #### C BC #### [facility] [address] [place], [place] [id number] Marielena Arianna MCH (RBC) [Entitic mass] 32.1 pg Normal 25.9-34.0 [facility] Comment on above: Performed By: #### C BC #### [facility] [address] [place], [place] [id number] Marielenaemma Keller MCHC (RBC) [Mass/Vol] 33.7 g/dL Normal 29.9-35.2 [facility] Comment on above: Performed By: #### C BC #### [facility] [address] [place], [place] [id number] Marielena Arianna MCV (RBC) [Entitic vol] 95.4 fL Critically high 80.0-94.0 [facility] Comment on above: Performed By: #### C BC #### [facility] [address] [place], [place] [id number] Marielena Arianna Monocytes (Bld) [#/Vol] 0.6 103/ul Normal 0.3-0.8 [facility] Comment on above: Performed By: #### C BC #### [facility] [address] [place], [place] [id number] Marielena Arianna Monocytes/100 WBC (Bld) 13.7 % Critically high 1.7-12.0 [facility] Comment on above: Performed By: #### C BC #### [facility] [address] [place], [place] [id number] Marielena Arianna Neutrophils (Bld) [#/Vol] 2.0 103/ul Normal 1.4-6.5 [facility] Comment on above: Performed By: #### C BC #### [facility] [address] [place], [place] [id number] Marielena Arianna Neutrophils/100 WBC (Bld) 43.8 % Normal 43.0-75.0 [facility] Comment on above: Performed By: #### C BC #### [facility] [address] [place] [address] Marielena Keller Platelet mean volume (Bld) [Entitic vol] 10.4 fL Normal 9.5-13.5 [facility] Comment on above: Performed By: #### C BC #### [facility] [address] [place], [place] [id number] Marielenaemma Keller Platelets (Bld) [#/Vol] 141 103/ul Critically low 150-450 [facility] Comment on above: Performed By: #### C BC #### [facility] [address] [place] [address] Marielena Keller RBC (Bld) [#/Vol] 4.14 106/ul Critically low 4.70-6.10 Th e [facility] Comment on above: Performed By: #### C BC #### [facility] [address] [place] [address] Marielena Keller WBC (Bld) [#/Vol] 4.5 103/ul Normal 4.0-11.0 [facility] Comment on above: Performed By: #### C BC #### [facility] [address] [place], [place] [id number] Marielena Keller ETHANOL (BLD ALC)on 06-04-20 20 Ethanol [Mass/Vol] NOTE: 80 mg/dl is the legal limit for a blood alcohol level Normal [facility] Comment on above: Performed By: #### C HARINI WETS CMADM #### [facility] [address] [place] [address] Marielenaemma Keller Ethanol [Mass/Vol] 347 mg/dL Normal [facility] Comment on above: Performed By: #### C HARINI WEST CMADM #### [facility] [address] [place] [address] Marielenaemma Keller PROF 14(COMP METB)on 020 Albumin [Mass/Vol] 3.5 g/dL Normal 3.5-5.0 [facility] Comment on above: Performed By: #### C MP, ETH, CMADM #### [facility] [address] [place], [place] [address] Marielena Arianna Albumin/Globulin [Mass ratio] 0.9 {ratio} Normal [facility] Comment on above: Performed By: #### C MP, ETH, CMADM #### [facility] [address] [place], [place] [address] Marielena Arianna ALP [Catalytic activity/Vol] 54 U/L Normal 38-126 [facility] Comment on above: Performed By: #### C MP, ETH, CMADM #### [facility] [address] [place], [place] [address] Marielena Arianna ALT [Catalytic activity/Vol] 109 U/L Critically high 21-72 [facility] Comment on above: Performed By: #### C MP, ETH, CMADM #### [facility] [address] [place] [id number] Marielena Arianna Anion gap [Moles/Vol] 14.5 mmol/L Normal [facility] Comment on above: Performed By: #### C MP, ETH, CMADM #### [facility] [address] [place] [id number] Marielena Arianna AST [Catalytic activity/Vol] 128 U/L Critically high 17-59 [facility] Comment on above: Performed By: #### C MP, ETH, CMADM #### [facility] [address] [place], [place] [address] Marielena Arianna Bilirubin Ql (U) 0.3 mg/dL Normal 0.2-1.3 [facility] Comment on above: Performed By: #### C MP, ETH, CMADM #### [facility] [address] [place], [place] [address] Marielena Arianna Calcium [Mass/Vol] 8.5 mg/dL Normal 8.4-10.2 [facility] Comment on above: Performed By: #### C MP, ETH, CMADM #### [facility] [address] [place] [phone] Marielena Arianna Chloride [Moles/Vol] 102 mmol/L Normal 98-107 [facility] Comment on above: Performed By: #### C MP, ETH, CMADM #### [facility] [address] [place] [id number] Marielena Arianna CO2 [Moles/Vol] 25.2 mmol/L Normal 22.0-30.0 [facility] Comment on above: Performed By: #### C MP, ETH, CMADM #### [facility] [address] [place] [address] Marielena Arianna Creatinine [Mass/Vol] 0.87 mg/dL Normal 0.66-1.25 [facility] Comment on above: Performed By: #### C MP, ETH, CMADM #### [facility] [address] [place] [address] Marielena Arianna EGFR-AF RUSSIAN >60 Normal >=60 [facility] Comment on above: Performed By: #### C MP, ETH, CMADM #### [facility] [address] [place] [address] Marielena Arianna EGFR-NON AF RUSSIAN >60 Normal >=60 [facility] Comment on above: Performed By: #### C MP, ETH, CMADM #### [facility] [address] [place] [id number] Marielena Arianna Globulin (S) [Mass/Vol] 3.7 g/dL Normal [facility] Comment on above: Performed By: #### C MP, ETH, CMADM #### [facility] [address] [place] [address] Marielena Arianna Glucose [Mass/Vol] 107 mg/dL Critically high 74-106 [facility] Comment on above: Performed By: #### C MP, ETH, CMADM #### [facility] [address] [place] [phone] Marielena Arianna Potassium [Moles/Vol] 3.7 mmol/L Normal 3.4-5.0 [facility] Comment on above: Performed By: #### C MP, ETH, CMADM #### [facility] [address] [place] [address] Marielena Arianna Protein [Mass/Vol] 7.2 g/dL Normal 6.1-8.2 [facility] Comment on above: Performed By: #### C MP, ETH, CMADM #### [facility] [address] [place], [place] [address] Marielena Arianna Sodium [Moles/Vol] 138 mmol/L Normal 137-145 [facility] Comment on above: Performed By: #### C MP, ETH, CMADM #### [facility] [address] [place] [phone] Marielena Arianna Urea nitrogen [Mass/Vol] 11.0 mg/dL Normal 9.0-20.0 [facility] Comment on above: Performed By: #### C MP, ETH, CMADM #### [facility] [address] [place], [place] [id number] Marielena Arianna Urea nitrogen/Creatini ne [Mass ratio] 12.6 mg/mg Normal [facility] Comment on above: Performed By: #### C JENNA, ETH, CMADM #### [facility] [address] [place], [place] [address] Marielena Arianna Vital Signs Date Time Vital Sign Value Performing Clinician Facility 08-15-2024 13:31-0500 Blood Pressure Location Pranay CITLALLIL [facility] 08-15-2024 13:31-0500 Diastolic blood pressure 74 mm[Hg] Pranay NILL [facility] 08-15-2024 13:31-0500 Heart rate 72 /min Pranay NILL [facility] 08-15-2024 13:31-0500 Respiratory rate 16 /min Pranay NILL [facility] 08-15-2024 13:31-0500 Systolic blood pressure 126 mm[Hg] Pranay NILL [facility] 07-26-2024 13:02-0400 Body height 170.18 cm [facility] Work Phone: [facility] 07-26-2024 13:02-0400 Body mass index (BMI) [Ratio] 30.2 kg/m2 [employer] [facility] Work Phone: [facility] 07-26-2024 13:02-0400 Body weight 87.54 kg [employer] [facility] Work Phone: [facility] 07-26-2024 13:02-0400 Diastolic blood pressure 98 mm[Hg] [employer] [facility] Work Phone: [facility] 07-26-2024 13:02-0400 Respiratory rate 16 /min [employer] [facility] Work Phone: [facility] 07-26-2024 13:02-0400 SaO2% (BldA) [Mass fraction] 98 % [employer] [facility] Work Phone: [facility] 07-26-2024 13:02-0400 Systolic blood pressure 169 mm[Hg] [employer] [facility] Work Phone: [facility] 07-25-2024 14:27-0400 Body height 177.8 cm Pmh 2 [employer] [facility] 07-25-2024 14:27-0400 Body mass index (BMI) [Ratio] 27.98 kg/m2 Pm 2 [employer] [facility] 07-25-2024 14:27-0400 Body weight 88.45 kg Pm 2 [employer] [facility] 06-28-2024 08:14-0400 Body height 177.8 cm [employer] Work Phone: [facility] [employer] 06-28-2024 08:14-0400 Body mass index (BMI) [Ratio] 27.55 kg/m2 [employer] Work Phone: [facility] [employer] 06-28-2024 08:14-0400 Body weight 87.09 kg [employer] Work Phone: [facility] [employer] 06-28-2024 08:14-0400 Diastolic blood pressure 84 mm[Hg] [employer] Work Phone: [facility] 06-28-2024 08:14-0400 Heart rate 85 /min Ning Twyla DO Work Phone: [facility] 06-28-2024 08:14-0400 Respiratory rate 18 /min Ning Twyla DO Work Phone: [facility] 06-28-2024 08:14-0400 SaO2% (BldA) [Mass fraction] 98 % Ning Wakefield DO Work Phone: [facility] 06-28-2024 08:14-0400 Systolic blood pressure 138 mm[Hg] Ning Twyla DO Work Phone: [facility] 06-05-2024 10:43-0400 Body height 177.8 cm Ning Wakefield DO Work Phone: [facility] 06-05-2024 10:43-0400 Body mass index (BMI) [Ratio] 27.55 kg/m2 Ning Wakefield DO Work Phone: [facility] 06-05-2024 10:43-0400 Body weight 87.09 kg Ning Wakefield DO Work Phone: [facility] 06-05-2024 10:43-0400 Diastolic blood pressure 84 mm[Hg] Ning Wakefield DO Work Phone: [facility] 06-05-2024 10:43-0400 Heart rate 72 /min Ning Twyla DO Work Phone: [facility] 06-05-2024 10:43-0400 Respiratory rate 20 /min Ning Wakefield DO Work Phone: [facility] 06-05-2024 10:43-0400 SaO2% (BldA) [Mass fraction] 99 % Ning Wakefield DO Work Phone: [facility] 06-05-2024 10:43-0400 Systolic blood pressure 142 mm[Hg] Ning Twyla DO Work Phone: [facility] 12-07-2018 16:37-0400 Body height 177.8 cm Chelsy Rosales CNP Work Phone: [facility] Work Phone: 12-07-2018 16:37-0400 Body mass index (BMI) [Ratio] 25.9 kg/m2 Chelsy Rosales CNP Work Phone: [facility] Work Phone: 12-07-2018 16:37-0400 Body surface area Derived from formula 2 m2 Chelsy Rosales CNP Work Phone: [facility] Work Phone: 12-07-2018 16:37-0400 Body temperature 96.6 [degF] Chelsy Rosales CNP Work Phone: [facility] Work Phone: 12-07-2018 16:37-0400 Body weight 81.76 kg Chelsy Rosales CNP Work Phone: [facility] Work Phone: 12-07-2018 16:37-0400 Diastolic blood pressure 80 mm[Hg] Chelsy Rosales CNP Work Phone: [facility] Work Phone: 12-07-2018 16:37-0400 Heart rate 54 /min Chelsy Rosales CNP Work Phone: [facility] Work Phone: 12-07-2018 16:37-0400 SaO2% (BldA) [Mass fraction] 98 % Chelsy Rosales CNP Work Phone: [facility] Work Phone: 12-07-2018 16:37-0400 Systolic blood pressure 130 mm[Hg] Chelsy Rosales CNP Work Phone: [facility] Work Phone: Encounters Encounter Date Encounter Type Care Provider Facility Start: 09-06-2024 End: 09-06-2024 ambulatory AIMEE FRANCISCO Facility: [facility] Start: 09-05-2024 ambulatory Angelina Tomlinson Faci lity:[facility] Start: 08-30-2024 End: 08-30-2024 ambulatory AIMEE FRANCISCO Facility:[id number] Start: 08-17-2024 Registered [facility] Work Phone: Start: 08-17-2024 End: 08-17-2024 ambulatory [facility] Work Phone: [facility] Work Phone: Start: 08-17-2024 End: 08-17-2024 Patient encounter procedure [facility] Work Phone: [facility] Work Phone: Start: 08-15-2024 End: 08-15-2024 ambulatory AIMEE SINGH Facility: [facility] Start: 08-15-2024 End: 08-15-2024 Patient encounter procedure Pranay ADAMSON [facility] Start: 08-10-2024 ambulatory AIMEE SINGH Facility : [facility] Start: 08-03-2024 End: 08-03-2024 ambulatory AIMEESEFERINO MCDUFFIEWLA [facility] Start: 08-02-2024 End: 08-02-2024 ambulatory DELMA BROWN [facility] Start: 07-26-2024 Registered [facility] Work Phone: Start: 07-26-2024 End: 07-26-2024 ambulatory [facility] Work Phone: [facility] Work Phone: Start: 07-26-2024 End: 07-26-2024 Patient encounter procedure [facility] Work Phone: [facility] Work Phone: Start: 07-25-2024 Encounter for other preprocedural examination RAFFI KHOURYARI [facility] Start: 07-25-2024 End: 07-25-2024 Patient encounter procedure Pmh Pre-Admission Testing 2 [facility] - Pre Admit Start: 07-25-2024 End: 07-25-2024 ambulatory CAMMIE KRUSE [facility] Start: 07-25-2024 End: 07-25-2024 ambulatory GRAHAM GLEZ [facility] Start: 06-30-2024 End: 06-30-2024 ambulatory NING [facility] Start: 06-28-2024 End: 06-28-2024 Bamboo [...] Start: 06-20-2024 End: 06-20-2024 ambulatory Ning Wakefield [facility] Work Phone: Start: 06-20-2024 End: 06-20-2024 Departed Referred DO Ning Wakefield Work Phone: [facility] Start: 06-05-2024 End: 06-05-2024 Bamboo flowsheet Ning Wakefield DO Work Phone: [facility] Start: 06-05-2024 End: 06-05-2024 Bamboo flowsheet Ning Wakefield DO Work Phone: [facility] Start: 06-05-2024 End: 06-05-2024 ambulatory NING WAKEFIELD Not Available Start: 06-05-2024 End: 06-05-2024 Office outpatient new 45 minutes Ning Wakefield DO Work Phone: [facility] Comment on above: Encounter for diagno stic colonoscopy due to change in bowel habits (Primary Dx) Start: 06-05-2020 End: 06-05-2020 Patient encounter procedure DOCTOR MIS Facility: Start: 04-25-2019 End: 04-26-2019 Emergency department patient visit KAMALJIT J [facility] Start: 12-07-2018 End: 12-07-2018 [facility] visit new patient Wendi Katz SONIYA Work Phone: [facility] Work Phone: Procedures Date Procedure Procedure Detail Performing Clinician Start: 01-07-2022 Adult depression scr eening assessment Pmh 2 Start: 12-07-2018 HYPERTENSION (SYSTEMIC) Chelsy Rosales CNP Work Phone: Start: 12-07-2018 Operative procedure on ankle Chelsy Rosales CNP Work Phone: Start: 12-07-2018 Operative procedure on hand Chelsy Connie [employer]GRAM[employer]EL[employer] Work Phone: Start: 12-07-2018 Surgical procedure 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: Angiography Pranay LENNONL Closed fracture of a nkle (disorder) Pranay NILL Closed fracture of l eft wrist (disorder) Pranay LENNONL Colonoscopy Pranay LENNONL Colonoscopy Pranay NILL Extraction of cataract Rex ADAMSON Plan of Treatment Date Care Activity Detail Author Start: 06-04-2030 DTaP,Tdap and Td Vaccines (4 - Td or Tdap) DTaP,Tdap and Td Vaccines (4 - Td or Tdap) [facility] Start: 07-25-2025 Adult BMI Screening Adult BMI Screen ing [facility] Start: 07-25-2025 Tobacco Screening Tobacco Screening [facility] Start: 07-28-2024 End: 07-28-2024 Admission to same day surgery center 07/28/2024 9:00 AM EDT - 07/28/2024 10:00 AM EDT Surgery [facility] [address] [id number] Cammie Kruse MD [address] [facility] [address] [place] [address] INSERTION PORT A CATH-MEDI PORT FOR CHEMO [63354 (CPT )] [facility] Comment on above: INSERTION PORT A CAT H-MEDI PORT FOR CHEMO [52646 (CPT )] Start: 07-28-2024 End: 07-28-2024 Anesthesia consultation 07/28/2024 9:00 AM EDT Anesthesia Event [facility] [address] [facility] [place] [id number] Ruperto Ponce, DO [address] [facility], [place] [id number] [facility] Start: 07-28-2024 End: 07-28-2024 Insj tunneled ctr vad w/subq port age 3 yr/> INSERTION PORT A CATH Malignant neoplasm of rectum (CMS-HCC) Encounter for therapeutic drug monitoring 07/28/2024 9:00 AM EDT [facility] Start: 07-28-2024 Subsequent hospital visit by physician 07/28/2024 9:00 AM EDT Hospital Encounter [facility] [address] [facility] [facility] [phone] Cammie Kruse MD [address], [facility] [address] [place] [address] [facility] - [facility] Start: 06-28-2024 End: 06-28-2025 Creatine Creatine Lab Routine Adenocarcinoma of rectum (HCC) (CMS/HCC) Expected: 06/28/2024 (Approximate), Expires: 06/28/2025 [facility] [employer] Comment on above: Expected: 06/28/2024 (Approximate), Expires: 06/28/2025 Start: 06-28-2024 End: 06-28-2025 CT CHEST ABDOMEN PELVIS W IV CONTRAST CT CHEST ABDOMEN PELVIS W IV CONTRAST Imaging Routine Adenocarcinoma of rectum (HCC) (CMS/HCC) Expected: 06/28/2024, Expires: 06/28/2025 [facility] Work Phone: Comment on above: Expected: 06/28/2024 , Expires: 06/28/2025 Start: 06-28-2024 End: 06-28-2025 MR Pelvis WO and W contrast IV MR pelvis w and wo contrast Imaging Routine Adenocarcinoma of rectum (HCC) (CMS/HCC) Expected: 06/28/2024, Expires: 06/28/2025 [facility] [employer] Comment on above: Expected: 06/28/2024 , Expires: 06/28/2025 Start: 06-28-2024 End: 06-28-2024 Patient encounter procedure 06/28/2024 8:15 AM EDT Office Visit [facility] ESPINO[facility] [address] [place] [address] Ning Wakefield DO [address] [place] [address] Arrived [facility]ERNARD ESPINOZA Comment on above: Arrived Start: 05-28-2024 COVID-19 Vaccine ( season) COVID-19 Vaccine ( season) [facility] Start: 05-28-2024 Influenza vaccination Influenza Vacc ine [facility] Start: 01-07-2023 Depression Screening Depression Scre ening [facility] Start: 2013 Fall Risk Screening Fall Risk Screen ing [facility] Start: 1967 Administration of varicella zoster vaccine Zoster (Shingles) Vaccine (1 of 2) [facility] Start: 1948 Tobacco Counseling Tobacco Counselesther gee [facility] Immunizations Immunization Date Immunization Notes Care Provider Noemy [email or web address] 06-27-2021 SARS-CoV-2 (COVID-19 ) mRNA BNT-162b2 [facility] Comment on above: Result Comment: 2023: [id number] 06-27-2021 influenza virus vaccine, unspecified formulation [facility] 2 [facility] 01-03-2021 SARS-CoV-2 (COVID-19 ) mRNA BNT-162b2 [facility] 12-13-2020 SARS-CoV-2 (COVID-19 ) mRNA BNT-162b2 [facility] 04-16-2018 tetanus toxoid, redu mary jo diphtheria toxoid, and acellular pertussis vaccine, adsorbed [facility] 2 [facility] 07-08-2017 influenza, high dose seasonal, preservative-free DO Ning Wakefield Work Phone: [facility] 06-07-2017 tetanus toxoid, redu mary jo diphtheria toxoid, and acellular pertussis vaccine, adsorbed DO Ning Wakefield Work Phone: [facility] Payers Date Payer Category Payer Self-pay [id number] 2022 Medicare [employer] [id number] 2022-Present [address] [place] [address] [id number] 2022 Medicare O [employer] [id number] 2022 Medicare [id number] 1959 Unknown [id number] 1948 Unknown [id number] [id number] 1948 Unknown [id number] [id number] 1948 Unknown [id number] 2.16.840.1.869410.3.579.2.1259 1948 Unknown [id number] 2.16.840.1.090588.3.579.2.1259 1948 Unknown [id number] 2.16.840.1.186441.3.579.2.1286 1948 Unknown [id number] 2.16.840.1.481107.3.579.2.1286 1948 Unknown [id number] 2.16.840.1.723886.3.579.2.1286 1948 Unknown [id number] 2.16.840.1.315401.3.579.2.1286 1948 Unknown [id number] 2.16.840.1.534822.3.579.2.727 1948 Unknown [id number] 2.16.840.1.497502.3.579.2.727 1948 Unknown [id number] 2.16.840.1.724328.3.579.2.727 Medicare 1 - Medicare [facility] CGS PPS 2V [id number] [id number] 9.5.10.6.3 Medicare Medicare [id number] Unknown [facility] [id number] Unknown [id number] [id number] Unknown [id number] 2.16.840.1.252106.3.579.2.531 Social History Date Type Detail Facility Assertion Finding of alcoh ol intake (finding) [facility] Work Phone: Assertion Gender identity finding (finding) [facility] Work Phone: Assertion Heterosexual (finding) [facility] Work Phone: Assertion [facility] Finding of sexua l orientation (finding) [facility] Work Phone: Tobacco smoking status Unknown if ever smoked [facility] Start: 08-11-2017 End: 12-23-2022 Tobacco smoking status NHIS Never smoked tobacco (finding) [facility] Start: 1950 Sex Assigned At Male [facility] Start: 1950 Sex assigned at Not on file [facility] Start: 11-07-2020 End: 07-25-2024 Gender identity Not on file [facility] Start: 11-02-2015 End: 08-17-2024 Sex Male (finding) [facility] Start: 12-23-2022 Tobacco use and exposure User of smokeless tobacco [facility] History of tobacco use Chews Tobacco [facility] Start: 07-25-2024 Alcoholic beverage intake Current drinker of alcohol (finding) [facility] Start: 11-07-2020 End: 07-25-2024 Alcoholic beverage intake [facility] Start: 07-25-2024 Alcohol Comment beer daily, 2- 4 cans per day and some occassional shots of whiskey [facility] NEGATED: Highlighted row Assertion Exposure to pollution (event) [facility] Work Phone: NEGATED: Highlighted row Assertion Tobacco user (finding) [facility] Work Phone: NEGATED: Highlighted row Assertion Finding relating to drug misuse behavior (finding) [facility] Work Phone: Medical Equipment Procedure Code [...] 06-25-2017 Lens Iol Ultrase rt 17.0d - [id number] - [id number] Start: 06-29-2023 Lens Iol Ultrase rt 18.5d - [id number] - [id number] Start: 07-13-2023 Goals Date Patient Goal Desired Activity /State Personal health goal Comment on above: Formatting of this n ote might be different from the original. Evaluation of progress towards goal: Safe transition from hospital to home. Functional Status Date Assessment Result Facility 08-15-2024 Functional Status N/A [facility] [place] Clinical Notes 06-05-2024 to 08-15-2024 Note Date [...] h/o atrial fibrillation, on Eliquis, htn, hypercholesterolemia, [place], recently diagnosed with advanced rectal cancer, referred for xvksgz-e-hixc for chemotherapy; no h/o previous port or [...] rectum (C20: Malignant neoplasm of rectum) plan [id number]-[id number] insertion under general anesthesia, informed consent obtained. [...] SARS-CoV-2 (COVID-19) mRNA BNT-162b2 vax 12/13/2020 Recorded [facility] Comment on above: Result Comment: Elec tronically Signed By: JUAN DIEGO MINAYA, Pranay McmillanDate and Time Signed: 08/15/24 14:12 EST 08-03-2024 Note Patient: Alexei colindres Procedure Summary Date: 08/03/24 Room / Location: [facility] Anesthesia Start: 1215 Anesthesia Stop: [...] per anesthesia protocol. No notable events documented. [facility] 08-03-2024 Note Patient: Alexei colindres Procedure Summary Date: 08/03/24 Room / Location: [facility] Anesthesia Start: 5 Anesthesia Stop: Procedure: ENDOSCOPIC ULTRASOUND (LOWER) Diagnosis: Rectal mass Scheduled Providers: Clem Gallardo MD; Fredrick Domínguez MD; LUISA Martin Responsible Provider: Fredrick Domínguez MD Anesthesia Type: MAC ASA Status: 3 Anesthesia Post Transport Note [facility] Route: room air Patient Monitor: direct observation Transport: uneventful Patient condition is: stable [facility] 08-03-2024 Note Patient: Alexei colindres Procedure Information Date/Time: 08/03/24 1230 Scheduled providers: Clem Gallardo MD; Fredrick Domínguez MD; LUISA Martin Procedure: ENDOSCOPIC ULTRASOUND (LOWER) Location: [facility] Relevant Problems Anesthesia (within normal limits) [...] risks discussed with patient. Plan discussed with LUISA. Additional Equipment Requests [facility] 08-02-2024 Note Subjective Patient ID: Alexei [...] No follow-ups on file. Elkin Shepard, MS3 [facility] 07-26-2024 Evaluation note Diagnosis Onset Date Resolution Adenocarcinoma of rectum acute July 26, 2024 12:38pm Adenocarcinoma of rectum acute August 17, 2024 9:17am [facility] Work Phone: 1(730) 116-613210-29-2024 Instructions* Patient Instructions* Casi Centeno RN - 07/25/2024 2:15 PM EDT Preoperative Education Checklist- General Surgery date: 07/28/24 Surgery time: 0900 a.m. Arrival time: 0700 a.m. 1. Bring a photo ID and your insurance card with you the day of surgery. You will check in at the main lobby of the [facility]- registration desk is straight ahead as soon as you walk in. Tell them you are here for surgery. 2. If you have a Living Will/Durable Power of Life Specialist for Health Care that is not [...] after you have bathed. 5. NO nail nauruan/acrylic on at least one finger. If you are having a hand, wrist or foot surgery then all nail nauruan and artificial/acrylic nails must be removed from [...] please call the Preadmission Testing office at [phone], Mon.-Fri. 7 a.m.-3 p.m. Leave a voicemail [...] go swimming or use a hot tub ([employer]), or perform activities where your incision is [...] [facility] Miscellaneous Notes* Perioperative Nursing Note - Casi Centeno RN - 07/25/2024 2:15 PM EDT Preoperative Education Checklist- General Surgery date: 07/28/24 Surgery time: 0900 a.m. Arrival time: 0700 a.m. 1. Bring a photo ID and your insurance card with you the day of surgery. You will check in at the main lobby of the [facility]- registration desk is straight ahead as soon as you walk in. Tell them you are here for surgery. 2. If you have a Living Will/Durable Power of Life Specialist for Health Care that is not [...] after you have bathed. 5. NO nail nauruan/acrylic on at least one finger. If you are having a hand, wrist or foot surgery then all nail nauruan and artificial/acrylic nails must be removed from [...] please call the Preadmission Testing office at [phone], Mon.-Fri. 7 a.m.-3 p.m. Leave a voicemail [...] documented in [facility] Nurse Note* Perioperative Nursing Note - Casi Centeno RN - 07/25/2024 2:15 PM EDT Preoperative Education Checklist- General Surgery date: 07/28/24 Surgery time: 0900 a.m. Arrival time: 0700 a.m. 1. Bring a photo ID and your insurance card with you the day of surgery. You will check in at the main lobby of the [facility]- registration desk is straight ahead as soon as you walk in. Tell them you are here for surgery. 2. If you have a Living Will/Durable Power of Life Specialist for Health Care that is not [...] after you have bathed. 5. NO nail nauruan/acrylic on at least one finger. If you are having a hand, wrist or foot surgery then all nail nauruan and artificial/acrylic nails must be removed from [...] please call the Preadmission Testing office at [phone], Mon.-Fri. 7 a.m.-3 p.m. Leave a voicemail [...] to the follow-up appointment with your doctor. [id number] Nurse Note* Perioperative Nursing Note - Casi Centeno RN - 07/25/2024 2:15 PM EDT Hibiclens and surgical instructions reviewed. Patient verbalized understanding. [facility] [employer] [id number] Note Attestation signed by Clem Gallardo MD [...] Patient followed up with the GI at [facility] where he underwent colonoscopy which revealed [...] PROT B12/Folate/Iron studies: No results found for: [id number] , FOLATE , IRON , TIBC , UIBC , IRONSAT , FERRITIN Viral Hepatitis No results found for: HEPAIGM , HAV , HEPBSAG , HEPBSAB , HEPBEAB , HEPBIGM , HEPBCAB , HEPBCOREAB , HBVNAT , HCVSCR , HEPCAB , HCVNAT , HCVPCR , HCVTMA Liver Workup No results found for: JENNIFER , SMOOTHMUSCAB , CERULOPLSM , [id number] , TTGA , IGA , TSH , FREET4 , AFP Pancreatitis No results found for: AMYLASE , LIPASE , TRIG , CALCIUM ASSESSMENT AND PLAN: Alexei Velasquez is a 73 y.o. male has hx of a-fib for that patient is on eliquis, essential hypertension who recently had ER visit for hematochezia. Patient followed up with the GI at [facility] where he underwent colonoscopy which revealed [...] No complaints at t (more content not included)...[facility]10-02-2024 History of Present illness Narrative* Ning Wakefield DO - 06/28/2024 8:15 AM EDT Images [...] Tobacco Use: High Risk (07/13/2023) Received from [facility] Patient History Smoking Tobacco Use: Never Smokeless Tobacco Use: Current Passive Exposure: Not on file Alcohol Use: Not on file Depression: Not at risk (01/07/2022) Received from [facility] PHQ-2 Total Score: 2 Physical Activity: Not [...] Information Document Information Other: Other PATHOLOGY REPORT [facility] 06/20/2024 00:00 Attached To: Alexei Velasquez Source [...] you, Essence Wakefield DO documented in this encounterSaint [facility] [id number] History of Present illness Narrative* Ning Wakefield DO - 06/05/2024 10:30 AM EDT General Surgery H&P Alexei Velasquez 1950 Alexei Velasquez is a 73 y.o. male presents with chief complaint of Colonoscopy (Pt presents today for a colonoscopy. Pt states that he has never had a colonoscopy before. Pt states that he went to [facility] on 05/15 for rectal bleeding and constipation. He states that they prescribed Colace and he is still taking it and he believes it is helping. Pt gave his VIS sheet from [facility] and it states that they saw [...] Tobacco Use: High Risk (07/13/2023) Received from [facility] Patient History Smoking Tobacco Use: Never Smokeless Tobacco Use: Current Passive Exposure: Not on file Alcohol Use: Not on file Depression: Not at risk (01/07/2022) Received from [facility] PHQ-2 Total Score: 2 Physical Activity: Not [...] note No data available for this section [facility] Evaluation note Assessments not supported for this document type No Assessments [facility] Work Phone: Evaluation noteNo assessment information available 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 [facility] this encounter [facility] Diagnosis Onset Date Resolution Status Adenocarcinoma of rectum acu [facility] Work Phone: Evaluation note* Diagnosis Encounter for diagnostic colonoscopy due to change in bowel habits- Primary documented in this encounter [facility] Present illness Narrative History of Present Illness not supported for this document type No History of Present Illness [facility] Work Phone: Hospital Discharge instructions No data available for this section [facility] Instructions Instructions not supported for this document type No Instructions [facility] Work Phone: patient problem outcome Narrative Includes: Evaluations & Outcomes for active Goals No Outcomes [facility] Work Phone: progress note No data available for this section [facility] Reason for referral (narrative)* Consultation (Routine) - Pending Review Specialty Diagnoses / Procedures Referred By Contac t Referred To Contact Oncology Diagnoses Adenocarcinoma of rectum (HCC) (CMS/HCC) Procedures [place] OFFICE/OUTPATIENT NEW HIGH MDM 60 MINUTES Ning Wakefield DO [address] [place] [address] Aimee Singh MD [address] [place] [address] Referral ID Status Reason Start Date Expiration Date Visits Requested Visits Authorized [id number] Pending Review Specialty Services Required 06/28/2024 12/25/2024 1 1 * Imaging (Routine) - Pending Review Specialty Diagnoses / Procedures Referred By Contac t Referred To Contact Radiology Diagnoses Adenocarcinoma of rectum (HCC) (CMS/HCC) Procedures MR pelvis w and wo contrast Ning Wakefield DO [address] [facility] [address] [place] [address] [facility] [address] [place] [address] Referral ID Status Reason Start Date Expiration Date V isits Requested Visits Authorized [id number] Pending Review 06/28/2024 12/25/2024 1 1 * Imaging (Routine) - Pending Review Specialty Diagnoses / Procedures Referred By Contac t Referred To Contact Radiology Diagnoses Adenocarcinoma of rectum (HCC) (CMS/HCC) Procedures CT CHEST ABDOMEN PELVIS W IV CONTRAST Ning Wakefield DO [address] [facility] [address] [place] [address] [place] [address] Referral ID Status Reason Start Date Expiration Date V isits Requested Visits Authorized [id number] Pending Review 06/28/2024 12/25/2024 1 1 [facility] [...] Date/ Time Advance Directives No May 11:06am Advance Directive Response Recorded Date/ Time Advance Directives No May 10:06am Date Activated Date Inactivated Comments 12/01/2019 3:13 [...] DATE CREATED AUTHOR AUTHOR'S ORGANIZ ATION 06/29/2024 [facility] dical [facility] DATE CREATED AUTHOR AUTHOR'S ORGANIZ ATION 07/27/2024 [facility] DATE CREATED AUTHOR AUTHOR'S ORGANIZ ATION 08/04/2024 [facility] DATE CREATED AUTHOR AUTHOR'S ORGANIZ ATION 08/12/2024 [facility] DATE CREATED AUTHOR AUTHOR'S ORGANIZ ATION 09/07/2024 [facility] DATE CREATED AUTHOR AUTHOR'S ORGANIZ ATION 10/17/2024 [facility] Care Teams (unrecognized sec tion and content) Team Status: Inactive Member Role Status Dates Ning Wakefield DO Attending Provider Active Star t: June 20, 2024 End: June 20, 2024 City Assessor Relationship Specialty Start Date End Date Shabnam Villarreal MD [address] [place] [address] PCP - General Behavioral Health 06/05/24 City Assessor Relationship Specialty Start Date End Date Shabnam Villarreal MD [address] [place] [address] PCP - General Behavioral Health 06/05/24 Team Status: Active Member Role Status Dates [facility] Primary Care Provider Active Team Status: Inactive Member Role Status Dates Angelina Tomlinson MD Attending Provider Active Start: July 26, 2024 End: July 26, 2024 [facility] Primary Care Provider Active Start: July 26, 2024 End: July 26, 2024 Aimee Singh MD Referring Provider Active St art: July 26, 2024 End: July 26, 2024 Team Status: Active Member Role Status Dates [facility] Primary Care Provider Active Start: July 26, 2024 Angelina Tomlinson MD Attending Provider Active Start: July 26, 2024 Aimee Singh MD Referring Provider Active St art: July 26, 2024 Team Status: Inactive Member Role Status Dates [facility] Primary Care Provider Active Start: August 17, 2024 End: August 17, 2024 Angelina Tomlinson MD Attending Provider Active Start: August 17, 2024 End: August 17, 2024 Team Status: Active Member Role Status Dates [facility] Primary Care Provider Active Start: August 17, 2024 Angelina Tomlinson MD Attending Provider Active Start: August 17, 2024 Aimee Singh MD Referring Provider Active St art: August 17, 2024 City Assessor Relationship Specialty Start Date End Date Shabnam Villarreal MD [address] [facility] [address] PCP - General Behavioral Health 06/05/24 City Assessor Relationship Specialty Start Date End Date Shabnam Villarreal MD [address] [place] [address] PCP - General Behavioral Health 06/05/24 City Assessor Relationship Specialty Start Date End Date Raffi Byrd MD [address] [place] [address] PCP - General Internal Medicine 01/01/22 Goals [...] before. Pt states that he went to [facility] ER on 05/15 for rectal bleeding and constipation. He states that they prescribed Colace and he is still taking it and he believes it is helping. Pt gave his VIS sheet from [facility] and it states that they saw [...] BE BASED ON THE PRIMARY CLINICAL RECORDS. [facility]. provides no warranty or guarantee of the accuracy or completeness of information in this document.
== END 2024-11-17 13:17 | disposition home or self-care (01) ==
LOC: RAD 13:16
PROVIDERS: Visit Provider Internal Medicine Hematology & Oncology
DX: Z51.11 Encounter for antineoplastic chemotherapy (principal); C20 Malignant neoplasm of rectum; D64.9 Anemia, unspecified; R11.2 Nausea with vomiting, unspecified; D50.9 Iron deficiency anemia, unspecified; K90.9 Intestinal malabsorption, unspecified; R05.1 Acute cough
CPT/HCPCS: 71046

== ENCOUNTER 2024-11-29 09:26 | Outpatient (OUT) | payer MEDICARE, SELFPAY ==
--- NOTE | 2024-11-29 09:30 | CT_ITS ---
The [address] [address] Patient Name: ROLDAN COTE MRN: [id number] date: 1950 Sex: M Assigned Patient Location: [facility] Current Patient Location: [facility] Accession/Order Number: [id number] Exam Date: 11/29/2024 16:51 Report Date: 11/29/2024 17:05 At the request of: NEYMAR LERMA MD Procedure: CT chest w con CT CHEST WITH INTRAVENOUS CONTRAST: CLINICAL HISTORY: Acute Cough, Malignant Neoplasm Rectum COMPARISON: CT chest 07/11/2024 TECHNIQUE: Spiral images were obtained through the chest following intravenous administration of IV contrast. This CT exam was performed using one or more following dose reduction techniques: Automated exposure control, adjustment of the mA and/or kV according to patient size, or use of iterative reconstruction technique. FINDINGS: Mediastinum:Thoracic aorta appears normal in caliber. Right-sided port is in place. Pulmonary trunk appears nondilated. No pleural effusion. No lymphadenopathy. The esophagus is grossly unremarkable. Lungs:Respiratory motion limits evaluation. There appears be fibrotic changes involving the lungs without definitive honeycombing. Ill-defined area of groundglass is seen involving the superior segment of the right lower lobe and right upper lobe. Abd:No acute findings. Soft tissues/Bones: No acute process. Osseous structures demonstrate degenerative change. CT/CT chest w con IMPRESSION: Respiratory motion limits evaluation. Ill-defined area of groundglass superior segment right lower lobe and right upper lobe. CT follow-up is recommended to ensure resolution. A similar process is noted on the prior study from 07/11/2024. Impression dictated by: Peter Child Jr., D.O.11/29/2024 5:05 PM Dictation Location: [employer] Electronically authenticated by: [id number] Y Date: 11/29/2024 17:05
--- OUTSIDE RECORDS SUMMARY | 2024-11-29 09:48 | XMS_ITS | CCD ---
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 Arianna Erythrocyte distribution width (RBC) [Ratio] 13.3 % Normal 11.0-15.0 [facility] Comment on above: Performed By: #### C BC #### [facility] [address] [place], [place] [phone] Marielena Arianna Hematocrit (Bld) [Volume fraction] 39.5 % Critically low 42.0-54.0 [facility] Comment on above: Performed By: #### C BC #### [facility] [address] [place] [address] Marielena Arianna Hemoglobin (Bld) [Mass/Vol] 13.3 g/dL Critically low 14.0-18.0 [facility] Comment on above: Performed By: #### C BC #### [facility] [address] [phone] Marielena Arianna IG # 0.02 10e3/ul Normal 0.00-0.03 [facility] Comment on above: Performed By: #### C BC #### [facility] [address] [phone] Marielena Arianna IG % 0.4 % Normal 0.0-0.5 [facility] Comment on above: Performed By: #### C BC #### [facility] [address] [place], [place] [phone] Marielena Arianna Lymphocytes (Bld) [#/Vol] 1.7 103/ul Normal 1.2-3.8 [facility] Comment on above: Performed By: #### C BC #### [facility] [address] [place], [place] [phone] Marielena Arianna Lymphocytes/100 WBC (Bld) 38.0 % Normal 20.5-60.0 [facility] Comment on above: Performed By: #### C BC #### [facility] [address] [place], [place] [phone] Marielena Arianna MANUAL DIFF REQ NO Normal [facility] Comment on above: Performed By: #### C BC #### [facility] [address] [place], [place] [phone] Marielena Arianna MCH (RBC) [Entitic mass] 32.1 pg Normal 25.9-34.0 [facility] Comment on above: Performed By: #### C BC #### [facility] [address] [place], [place] [phone] Marielena Arianna MCHC (RBC) [Mass/Vol] 33.7 g/dL Normal 29.9-35.2 [facility] Comment on above: Performed By: #### C BC #### [facility] [address] [place], [place] [phone] Marielena Arianna MCV (RBC) [Entitic vol] 95.4 fL Critically high 80.0-94.0 [facility] Comment on above: Performed By: #### C BC #### [facility] [address], [place] [address] Marielena Arianna Monocytes (Bld) [#/Vol] 0.6 103/ul Normal 0.3-0.8 [facility] Comment on above: Performed By: #### C BC #### [facility] [address], [place] [address] Marielena Arianna Monocytes/100 WBC (Bld) 13.7 % Critically high 1.7-12.0 [facility] Comment on above: Performed By: #### C BC #### [facility] [address], [place] [address] Marielena Arianna Neutrophils (Bld) [#/Vol] 2.0 103/ul Normal 1.4-6.5 [facility] Comment on above: Performed By: #### C BC #### [facility] [address] [place] [address] Marielena Arianna Neutrophils/100 WBC (Bld) 43.8 % Normal 43.0-75.0 [facility] Comment on above: Performed By: #### C BC #### [facility] [address] [place] [address] Marielena Arianna Platelet mean volume (Bld) [Entitic vol] 10.4 fL Normal 9.5-13.5 [facility] Comment on above: Performed By: #### C BC #### [facility] [address] [place] [address] Marielena Arianna Platelets (Bld) [#/Vol] 141 103/ul Critically low 150-450 [facility] Comment on above: Performed By: #### C BC #### [facility] [address], [place] [address] Marielena Arianna RBC (Bld) [#/Vol] 4.14 106/ul Critically low 4.70-6.10 [facility] Comment on above: Performed By: #### C BC #### [facility] [address], [place] [address] Marielena Arianna WBC (Bld) [#/Vol] 4.5 103/ul Normal 4.0-11.0 [facility] Comment on above: Performed By: #### C BC #### [facility] [address] [place], [place] [phone] Marielena Arianna ETHANOL (BLD ALC)on 06-04-20 20 Ethanol [Mass/Vol] NOTE: 80 mg/dl is the legal limit for a blood alcohol level Normal [facility] Comment on above: Performed By: #### C HARINI WEST CMADM #### [facility] [address] [place] [address] Marielena Arianna Ethanol [Mass/Vol] 347 mg/dL Normal [facility] Comment on above: Performed By: #### C HARINI WEST CMADM #### [facility] [address] [place] [address] Marielenaemma Zafaren PROF 14(COMP METB)on 020 Albumin [Mass/Vol] 3.5 g/dL Normal 3.5-5.0 [facility] Comment on above: Performed By: #### C HARINI WEST CMADM #### [facility] [address] [place] [address] Marielena Arianna Albumin/Globulin [Mass ratio] 0.9 {ratio} Normal [facility] Comment on above: Performed By: #### C HARINI WEST CMADM #### [facility] [address] [place] [address] Marielena Arianna ALP [Catalytic activity/Vol] 54 U/L Normal 38-126 [facility] Comment on above: Performed By: #### C HARINI WEST CMADM #### [facility] [address] [place] [address] Marielena Arianna ALT [Catalytic activity/Vol] 109 U/L Critically high 21-72 [facility] Comment on above: Performed By: #### C HARINI WEST CMADM #### [facility] [address] [place] [address] Marielena Arianna Anion gap [Moles/Vol] 14.5 mmol/L Normal [facility] Comment on above: Performed By: #### C HARINI WEST CMADM #### [facility] [address] [place] [address] Marielena Arianna AST [Catalytic activity/Vol] 128 U/L Critically high 17-59 [facility] Comment on above: Performed By: #### C HARINI WEST, CMADM #### [facility] [address] [address] Marielena Arianna Bilirubin Ql (U) 0.3 mg/dL Normal 0.2-1.3 [facility] Comment on above: Performed By: #### C HARINI WEST, CMADM #### [facility] [address] [address] Marielena Arianna Calcium [Mass/Vol] 8.5 mg/dL Normal 8.4-10.2 [facility] Comment on above: Performed By: #### C HARINI WEST, CMADM #### [facility] [address] [place] [address] Marielena Arianna Chloride [Moles/Vol] 102 mmol/L Normal 98-107 [facility] Comment on above: Performed By: #### C HARINI WEST, CMADM #### [facility] [address] [address] Marielena Arianna CO2 [Moles/Vol] 25.2 mmol/L Normal 22.0-30.0 [facility] Comment on above: Performed By: #### C HARINI WEST, CMADM #### [facility] [address] [place] [address] Marielena Arianna Creatinine [Mass/Vol] 0.87 mg/dL Normal 0.66-1.25 [facility] Comment on above: Performed By: #### C HARINI WEST, CMADM #### [facility] [address] [place] [address] Marielena Arianna EGFR-AF EMIRATI >60 Normal >=60 [facility] Comment on above: Performed By: #### C HARINI WEST, CMADM #### [facility] [address] [place] [address] Marielena Arianna EGFR-NON AF EMIRATI >60 Normal >=60 [facility] Comment on above: Performed By: #### C HARINI WEST, CMADM #### [facility] [address], [place] [address] Marielena Arianna Globulin (S) [Mass/Vol] 3.7 g/dL Normal [facility] Comment on above: Performed By: #### C HARINI WEST, CMADM #### [facility] [address] [phone] Marielena Arianna Glucose [Mass/Vol] 107 mg/dL Critically high 74-106 [facility] Comment on above: Performed By: #### C HARINI WEST, CMADM #### [facility] [address] [phone] Marielena Arianna Potassium [Moles/Vol] 3.7 mmol/L Normal 3.4-5.0 [facility] Comment on above: Performed By: #### C HARINI WEST, CMADM #### [facility] [address] [address] Marielena Arianna Protein [Mass/Vol] 7.2 g/dL Normal 6.1-8.2 [facility] Comment on above: Performed By: #### C HARINI WEST, CMADM #### [facility] [address] [phone] Marielena Arianna Sodium [Moles/Vol] 138 mmol/L Normal 137-145 [facility] Comment on above: Performed By: #### C HARINI WEST, CMADM #### [facility] [address] [phone] Marielena Arianna Urea nitrogen [Mass/Vol] 11.0 mg/dL Normal 9.0-20.0 [facility] Comment on above: Performed By: #### C HARINI WEST, CMADM #### [facility] [address] [phone] Marielena Arianna Urea nitrogen/Creatini ne [Mass ratio] 12.6 mg/mg Normal [facility] Comment on above: Performed By: #### C HARINI WEST, CMADM #### [facility] [address], [place] [address] Marielena Arianna Vital Signs Date Time Vital Sign Value Performing Clinician Facility 08-15-2024 13:31-0500 Blood Pressure Location Pranay LENNONL [facility] 08-15-2024 13:31-0500 Diastolic blood pressure 74 mm[Hg] Pranay LENNONL [facility] 08-15-2024 13:31-0500 Heart rate 72 /min Pranay LENNONL [facility] 08-15-2024 13:31-0500 Respiratory rate 16 /min Pranay LENNONL [facility] 08-15-2024 13:31-0500 Systolic blood pressure 126 mm[Hg] Pranay ADAMSON [facility] 07-26-2024 13:02-0400 Body height 170.18 cm [employer] Work Phone: [facility] 07-26-2024 13:02-0400 Body mass index (BMI) [Ratio] 30.2 kg/m2 [employer] [facility] Work Phone: [facility] 07-26-2024 13:02-0400 Body weight 87.54 kg [employer] Work Phone: [facility] 07-26-2024 13:02-0400 Diastolic blood pressure 98 mm[Hg] [employer] [facility] Work Phone: [facility] 07-26-2024 13:02-0400 Respiratory rate 16 /min [employer] [facility] Work Phone: [facility] 07-26-2024 13:02-0400 SaO2% (BldA) [Mass fraction] 98 % [employer] [facility] Work Phone: [facility] 07-26-2024 13:02-0400 Systolic blood pressure 169 mm[Hg] [employer] [facility] Work Phone: [facility] 07-25-2024 14:27-0400 Body height 177.8 cm [facility] 2 [facility] 07-25-2024 14:27-0400 Body mass index (BMI) [Ratio] 27.98 kg/m2 [facility] 2 [facility] 07-25-2024 14:27-0400 Body weight 88.45 kg P[facility] 2 [facility] 06-28-2024 08:14-0400 Body height 177.8 cm Ning [employer] Work Phone: [facility] 06-28-2024 08:14-0400 Body mass index (BMI) [Ratio] 27.55 kg/m2 Ning [employer] DO Work Phone: [facility] 06-28-2024 08:14-0400 Body weight 87.09 kg Ning [employer] Work Phone: [facility] 06-28-2024 08:14-0400 Diastolic blood pressure 84 mm[Hg] Ning [employer] DO Work Phone: [facility] 06-28-2024 08:14-0400 Heart rate 85 /min Ning [employer] Work Phone: [facility] 06-28-2024 08:14-0400 Respiratory rate 18 /min Ning [employer] DO Work Phone: [facility] 06-28-2024 08:14-0400 SaO2% (BldA) [Mass fraction] 98 % Ning [employer] Work Phone: [facility] 06-28-2024 08:14-0400 Systolic blood pressure 138 mm[Hg] Ning [employer] in[employer] DO Work Phone: [facility] 06-05-2024 10:43-0400 Body height 177.8 cm Ning [employer] Work Phone: [facility] 06-05-2024 10:43-0400 Body mass index (BMI) [Ratio] 27.55 kg/m2 Ning [employer] Work Phone: [facility] 06-05-2024 10:43-0400 Body weight 87.09 kg Ning Wakefield DO Work Phone: [facility] 06-05-2024 10:43-0400 Diastolic blood pressure 84 mm[Hg] Ning Wakefield DO Work Phone: [facility] 06-05-2024 10:43-0400 Heart rate 72 /min Ning Wakefield DO Work Phone: [facility] 06-05-2024 10:43-0400 Respiratory rate 20 /min Ning Wakefield DO Work Phone: [facility] 06-05-2024 10:43-0400 SaO2% (BldA) [Mass fraction] 99 % Ning Wakefield DO Work Phone: [facility] 06-05-2024 10:43-0400 Systolic blood pressure 142 mm[Hg] Ning Wakefield DO Work Phone: [facility] 12-07-2018 16:37-0400 Body height 177.8 cm Chelsy Rosales CNP Work Phone: [facility] Work Phone: 12-07-2018 16:37-0400 Body mass index (BMI) [Ratio] 25.9 kg/m2 Chelsy Rosales CNP Work Phone: [facility] Work Phone: 12-07-2018 16:37-0400 Body surface area Derived from formula 2 m2 Chelsy Rosales CNP Work Phone: [facility] Work Phone: 12-07-2018 16:37-0400 Body temperature 96.6 [degF] Chelsy Rosales CNP Work Phone: [facility] Work Phone: 12-07-2018 16:37-0400 Body weight 81.76 kg Chelsy Roasles CNP Work Phone: [facility] Work Phone: 12-07-2018 16:37-0400 Diastolic blood pressure 80 mm[Hg] Chelsy Rosales CNP Work Phone: [facility] Work Phone: 12-07-2018 16:37-0400 Heart rate 54 /min Chelsy Rosales CNP Work Phone: [facility] Work Phone: 12-07-2018 16:37-0400 SaO2% (BldA) [Mass fraction] 98 % Chelsy Rosales CNP Work Phone: [facility] Work Phone: 12-07-2018 16:37-0400 Systolic blood pressure 130 mm[Hg] Chelsy Rosales CNP Work Phone: [facility] Work Phone: Encounters Encounter Date Encounter Type Care Provider Facility Start: 11-23-2024 End: 11-23-2024 ambulatory [facility] Start: 11-17-2024 End: 11-17-2024 ambulatory DELMA BROWN [facility] Start: 09-06-2024 End: 09-06-2024 ambulatory AIMEE SINGH Facility: [place] Start: 09-05-2024 ambulatory Angelina Rueda lity:[facility] Start: 08-30-2024 End: 08-30-2024 ambulatory AIMEE MARIA GUADALUPE Facility:CD:[id number] Start: 08-17-2024 Registered [facility] Work Phone: [facility] Work Phone: Start: 08-17-2024 End: 08-17-2024 ambulatory [facility] Work Phone: [facility] Work Phone: Start: 08-17-2024 End: 08-17-2024 Patient encounter procedure [facility] Work Phone: [facility] Work Phone: Start: 08-15-2024 End: 08-15-2024 ambulatory AIMEE SINGH Facility:[facility] Start: 08-15-2024 End: 08-15-2024 Patient encounter procedure Pranay Jessica ADAMSON [facility] Start: 08-10-2024 ambulatory AIMEE SINGH Facility :[facility] Start: 08-03-2024 End: 08-03-2024 ambulatory CLEM [facility] Start: 08-02-2024 End: 08-02-2024 ambulatory DELMA BROWN [facility] Start: 07-26-2024 Registered [facility] Work Phone: [facility] Work Phone: Start: 07-26-2024 End: 07-26-2024 ambulatory [facility] Work Phone: [facility] Work Phone: Start: 07-26-2024 End: 07-26-2024 Patient encounter procedure [facility] Work Phone: [facility] Work Phone: Start: 07-25-2024 Encounter for other preprocedural examination RAFFI TORRES [facility] Start: 07-25-2024 End: 07-25-2024 Patient encounter procedure [facility] Pre-Admission Testing 2 [facility] - Pre Admit Start: 07-25-2024 End: 07-25-2024 ambulatory CAMMIE KRUSE [facility] Start: 07-25-2024 End: 07-25-2024 ambulatory GRAHAM GLEZ [facility] Start: 06-30-2024 End: 06-30-2024 ambulatory CLEM [facility] Start: 06-28-2024 End: 06-28-2024 Aimee Vásquezle Twyla DO Work Phone: [facility] [...] Start: 06-20-2024 End: 06-20-2024 ambulatory Ning Wakefield [facility] Work Phone: Start: 06-20-2024 End: 06-20-2024 Departed Referred DO Ning Wakefield Work Phone: [facility] Start: 06-05-2024 End: 06-05-2024 Bamboo flowsheet Ning Wakefield DO Work Phone: [facility] Start: 06-05-2024 End: 06-05-2024 Bamboo flowsheet Ning Wakefield DO Work Phone: [facility] Start: 06-05-2024 End: 06-05-2024 ambulatory NING WAKEFIELD Not Available Start: 06-05-2024 End: 06-05-2024 Office outpatient new 45 minutes Ning Wakefield DO Work Phone: [facility] Comment on above: Encounter for diagno stic colonoscopy due to change in bowel habits (Primary Dx) Start: 06-05-2020 End: 06-05-2020 Patient encounter procedure [facility] Facility: Start: 04-25-2019 End: 04-26-2019 Emergency department patient visit [facility] Start: 12-07-2018 End: 12-07-2018 FQ visit new patient Wendi Katz 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 Work Phone: [facility] Work Phone: Procedures Date Procedure Procedure Detail Performing Clinician Start: 01-07-2022 Adult depression scr eening assessment [facility] 2 Start: 12-07-2018 HYPERTENSION (SYSTEMIC) Chelsy Rosales 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 Work Phone: Start: 12-07-2018 Operative procedure on ankle Chelsy Rosales 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 Work Phone: Start: 12-07-2018 Operative procedure on hand Chelsy Rosales 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 Work Phone: Start: 12-07-2018 Surgical procedure Levar Rosales 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 Work Phone: Angiography Pranay NILL Closed fracture of a nkle (disorder) Pranay NILL Closed fracture of l eft wrist (disorder) Pranay NILL Colonoscopy Pranay NILL Colonoscopy Pranay NILL Extraction of cataract Rex abdi NILL Plan of Treatment Date Care Activity Detail Author Start: 06-04-2030 DTaP,Tdap and Td Vaccines (4 - Td or Tdap) DTaP,Tdap and Td Vaccines (4 - Td or Tdap) [facility] Start: 07-25-2025 Adult BMI Screening Adult BMI Screen ing [facility] Start: 07-25-2025 Tobacco Screening Tobacco Screening [facility] Start: 07-28-2024 End: 07-28-2024 Admission to same day surgery center 07/28/2024 9:00 AM EDT - 07/28/2024 10:00 AM EDT Surgery [facility] - Surgery [address] [place] [address] Cammie Kruse MD [address], [address] [address] INSERTION PORT A CATH-MEDI PORT FOR CHEMO [02701 (CPT )] [facility] Comment on above: INSERTION PORT A CAT H-MEDI PORT FOR CHEMO [35101 (CPT )] Start: 07-28-2024 End: 07-28-2024 Anesthesia consultation 07/28/2024 9:00 AM EDT Anesthesia Event [facility] [address] [place] [address] Ruperto Ponce, DO [address] [facility] [place], [place] [id number] [facility] Start: 07-28-2024 End: 07-28-2024 Insj tunneled ctr vad w/subq port age 3 yr/> INSERTION PORT A CATH Malignant neoplasm of rectum (CMS-HCC) Encounter for therapeutic drug monitoring 07/28/2024 9:00 AM EDT [facility] Start: 07-28-2024 Subsequent hospital visit by physician 07/28/2024 9:00 AM EDT Hospital Encounter [facility] [address] [place] [address] Cammie Kruse MD [address], [address] [address] [facility] Start: 06-28-2024 End: 06-28-2025 Creatine Creatine Lab Routine Adenocarcinoma of rectum (HCC) (CMS/HCC) Expected: 06/28/2024 (Approximate), Expires: 06/28/2025 [facility] Comment on above: Expected: 06/28/2024 (Approximate), Expires: 06/28/2025 Start: 06-28-2024 End: 06-28-2025 CT CHEST ABDOMEN PELVIS W IV CONTRAST CT CHEST ABDOMEN PELVIS W IV CONTRAST Imaging Routine Adenocarcinoma of rectum (HCC) (CMS/HCC) Expected: 06/28/2024, Expires: 06/28/2025 [facility] Work Phone: Comment on above: Expected: 06/28/2024 , Expires: 06/28/2025 Start: 06-28-2024 End: 06-28-2025 MR Pelvis WO and W contrast IV MR pelvis w and wo contrast Imaging Routine Adenocarcinoma of rectum (HCC) (CMS/HCC) Expected: 06/28/2024, Expires: 06/28/2025 [facility] Comment on above: Expected: 06/28/2024 , Expires: 06/28/2025 Start: 06-28-2024 End: 06-28-2024 Patient encounter procedure 06/28/2024 8:15 AM EDT Office Visit [facility] [address] [place] [address] Ning Wakefield DO [address] [place] [address] Arrived [facility] Comment on above: Arrived Start: 05-28-2024 COVID-19 Vaccine ( season) COVID-19 Vaccine ( season) [facility] Start: 05-28-2024 Influenza vaccination Influenza Vacc ine [facility] Start: 01-07-2023 Depression Screening Depression Scre ening [facility] Start: 2013 Fall Risk Screening Fall Risk Screen ing [facility] Start: 1967 Administration of varicella zoster vaccine Zoster (Shingles) Vaccine (1 of 2) [facility] Start: 1948 Tobacco Counseling Tobacco Counselin g [facility] Immunizations Immunization Date Immunization Notes Care Provider Fa cility 06-27-2021 SARS-CoV-2 (COVID-19 ) mRNA BNT-162b2 [facility] Pranay ADAMSON [facility] Comment on above: Result Comment: 2023: [id number] 06-27-2021 influenza virus vaccine, unspecified formulation Pmh 2 [facility] 01-03-2021 SARS-CoV-2 (COVID-19 ) mRNA BNT-162b2 vax Pranay ADAMSON [facility] 12-13-2020 SARS-CoV-2 (COVID-19 ) mRNA BNT-162b2 cedricx Pranay ADAMSON [facility] 04-16-2018 tetanus toxoid, redu mary jo diphtheria toxoid, and acellular pertussis vaccine, adsorbed Pmh 2 [facility] [employer] 07-08-2017 influenza, high dose seasonal, preservative-free DO Ning Wakefield Work Phone: [facility] 06-07-2017 tetanus toxoid, redu mary jo diphtheria toxoid, and acellular pertussis vaccine, adsorbed DO Ning Wakefield Work Phone: [facility] Payers Date Payer Category Payer Self-pay [id number] 2022 Medicare [employer] [id number] 2022-Present [address] [place] [address] [id number] 2022 Medicare O [employer] [id number] 2022 Medicare [id number] 1959 Unknown [id number] 1948 Unknown [id number] [id number] 1948 Unknown [id number] 2.16.840.1.547173.3.579.2.593 1948 Unknown [id number] 2.16.840.1.548310.3.579.2.1259 1948 Unknown [id number] 2.16.840.1.183642.3.579.2.1259 1948 Unknown [id number] 2.16.840.1.180601.3.579.2.727 1948 Unknown [id number] 2.16.840.1.893123.3.579.2.727 1948 Unknown [id number] 2.16.840.1.893148.3.579.2.727 1948 Unknown [id number] 2.16.840.1.489269.3.579.2.1286 1948 Unknown [id number] 2.16.840.1.846274.3.579.2.1286 1948 Unknown [id number] 2.16.840.1.583259.3.579.2.1286 1948 Unknown [id number] 2..840.1.294613.3.579.2.1286 1948 Unknown [id number] 2.16.840.1.058373.3.579.2.1286 Medicare 1 - Medicare FQ CGS PPS 2V [id number] [id number] 9.5.10.6.3 Medicare Medicare [id number] Unknown [facility] [id number] Unknown [id number] 2.16.840.1.809750.3.579.2.531 Unknown [id number] 2.16.840.1.349236.3.579.2.531 Social History Date Type Detail Facility Assertion Finding of alcoh ol intake (finding) Health [facility] Work Phone: Assertion Gender identity finding (finding) Health [facility] Work Phone: Assertion Heterosexual (finding) Healt h [facility] Work Phone: Assertion [facility] [place] Assertion Finding of sexua l orientation (finding) Health [facility] Work Phone: Tobacco smoking status Unknown if ever smoked [facility] Start: 08-11-2017 End: 12-23-2022 Tobacco smoking status NHIS Never smoked tobacco (finding) [facility] Start: 1950 Sex Assigned At Male [facility] Start: 1950 Sex assigned at Not on file [facility] Start: 11-07-2020 End: 07-25-2024 Gender identity Not on file [facility] Start: 11-02-2015 End: 08-17-2024 Sex Male (finding) [facility] Start: 12-23-2022 Tobacco use and exposure User of smokeless tobacco [facility] History of tobacco use Chews Tobacco [facility] Start: 07-25-2024 Alcoholic beverage intake Current drinker of alcohol (finding) [facility] Start: 11-07-2020 End: 07-25-2024 Alcoholic beverage intake [facility] Start: 07-25-2024 Alcohol Comment beer daily, 2- 4 cans per day and some occassional shots of whiskey [facility] NEGATED: Highlighted row Assertion Exposure to pollution (event) [facility] Work Phone: NEGATED: Highlighted row Assertion Tobacco user (finding) [facility] Work Phone: NEGATED: Highlighted row Assertion Finding relating to drug misuse behavior (finding) [facility] Work Phone: Medical Equipment Procedure Code [...] 06-25-2017 Lens Iol Ultrase rt 17.0d - [id number] - [id number] Start: 06-29-2023 Lens Iol Ultrase rt 18.5d - [id number] - [id number] Start: 07-13-2023 Goals Date Patient Goal Desired Activity /State Personal health goal Comment on above: Formatting of this n ote might be different from the original. Evaluation of progress towards goal: Safe transition from hospital to home. Functional Status Date Assessment Result Facility 08-15-2024 Functional Status N/A [facility] [place] Clinical Notes 06-05-2024 to 11-17-2024 Note Date & Type Note Facility 11-17-2024 Note Subjective Patient ID: Alexei Velasquez is a 74 y.o. male who presents for Rectal Cancer. HPI Mr. Velasquez is a 74 y/o male with PMHx of rectal cancer s/p 5 weeks of RAPIDO treatment with one course of chemotherapy left and chronic alcoholism. States that he had increased gas, constipation, and rectal bleeding last year and was found to have a 3.7 x 3.2 cm mass 8.3 cm above the anal verge. He received combination chemotherapy and radiation therapy at [facility] and has one course of chemotherapy left. MRI from Nov 01 2024 showed no residual mass but was limited by motion artifact. Denies fever, abdominal pain, gas, constipation, diarrhea, bleeding, and rectal pain. Review of Systems Constitutional: Negative for chills, fatigue and fever. HENT: Negative for sinus pressure and sinus pain. Eyes: Negative for pain. Respiratory: Positive for cough. Negative for chest tightness and shortness of breath. Cardiovascular: Negative for chest pain. Gastrointestinal: Negative for abdominal pain, anal bleeding, blood in stool, constipation, diarrhea, nausea, rectal pain and vomiting. Genitourinary: Negative for hematuria. Musculoskeletal: Negative for gait problem. Neurological: Negative for light-headedness. Psychiatric/Behavioral: Negative for agitation and confusion. Objective Visit Vitals BP 110/76 (BP Location: Right arm, Patient Position: Sitting) Pulse 97 Temp 36.9 ???C (98.4 ???F) (Temporal) Physical Exam Constitutional: Appearance: Normal appearance. HENT: Head: Normocephalic and atraumatic. Pulmonary: Effort: Pulmonary effort is normal. Abdominal: General: Abdomen is flat. There is no distension. Palpations: Abdomen is soft. Musculoskeletal: General: Normal range of motion. Neurological: Mental Status: He is alert. Mental status is at baseline. Psychiatric: Mood and Affect: Mood normal. Behavior: Behavior normal. Assessment/Plan Mr. Velasquez is a 74 y/o male with PMHx of rectal cancer s/p 5 weeks of RAPIDO treatment with one course of chemotherapy left and chronic alcoholism. Found to have a 3.7 x 3.2 cm mass 8.3 cm above the anal verge in Jun 2024. He received combination chemotherapy and radiation therapy at [facility] and has one course of chemotherapy left. MRI from Nov 01 2024 showed no residual mass but was limited by motion artifact. Rectal Cancer - Plan for flexible sigmoidoscopy in 2-3 weeks to assess mass size and to determine if surgery is warranted The above patient was seen with the medical student and the physical exam was done by myself with the student present, assisting and observing. The plan was discussed in detail with the student and the patient. No diagnosis found. No orders of the defined types were placed in this encounter. No results found for this or any previous visit (from the past 36 hour(s)). No follow-ups on file. [facility] 08-15-2024 Note General Surgery Offi ce/Clinic Note Chief Complaint consultation for port placement HPI Staff 74 year old male presents on consultation from Dr. Singh for port placement. Patient diagnosed with rectal adenocarcinoma. Patient on Eliquis for a.fib. Plan to start chemo 08/29. History of Present Illness 74 yo male with h/o atrial fibrillation, on Eliquis, htn, hypercholesterolemia, NM, recently diagnosed with advanced rectal cancer, referred for fgshfj-x-lnzb for chemotherapy; no h/o previous port or [...] rectum (C20: Malignant neoplasm of rectum) plan zuxjfd-p-teaf insertion under general anesthesia, informed consent obtained. [...] SARS-CoV-2 (COVID-19) mRNA BNT-162b2 vax 12/13/2020 Recorded [facility] Comment on above: Result Comment: Elec tronically Signed By: JUAN DIEGO MINAYA, Pranay Guerra\Date and Time Signed: 08/15/24 14:12 EST 08-03-2024 Note Patient: Alexei colindres Procedure Summary Date: 08/03/24 Room / Location: [facility] Endoscopy Anesthesia Start: 1215 Anesthesia [...] per anesthesia protocol. No notable events documented. [facility] 08-03-2024 Note Patient: Alexei colindres Procedure Summary Date: 08/03/24 Room / Location: [facility] Endoscopy Anesthesia Start: 1215 Anesthesia Stop: Procedure: ENDOSCOPIC ULTRASOUND (LOWER) Diagnosis: Rectal mass Scheduled Providers: Clem Gallardo MD; Fredrick Domínguez MD; LUISA Martin Responsible Provider: Fredrick Domínguez MD Anesthesia Type: MAC ASA Status: 3 Anesthesia Post [facility] Patient Monitor: direct observation Transport: uneventful Patient condition is: stable [facility] 08-03-2024 Note Patient: Alexei colindres Procedure Information Date/Time: 08/03/24 1230 Scheduled providers: Clem Gallardo MD; Fredrick Domínguez MD; LUISA Martin Procedure: ENDOSCOPIC ULTRASOUND (LOWER) Location: [facility] Endoscopy Relevant Problems Anesthesia (within [...] Plan discussed with CAA. Additional Equipment Requests [facility] 08-02-2024 Note Subjective Patient ID: Alexei [...] No follow-ups on file. Elkin Shepard, MS3 [facility] 07-26-2024 Evaluation note Diagnosis Onset Date Resolution Adenocarcinoma of rectum acute July 26, 2024 12:38pm Adenocarcinoma of rectum acute August 17, 2024 9:17am [facility] Work Phone: [phone] Instructions* Patient Instructions* Casi Centeno RN - 07/25/2024 2:15 PM EDT Preoperative Education Checklist- General Surgery date: 07/28/24 Surgery time: 0900 a.m. Arrival time: 0700 a.m. 1. Bring a photo ID and your insurance card with you the day of surgery. You will check in at the main lobby of the [facility]- registration desk is straight ahead as soon as you walk in. Tell them you are here for surgery. 2. If you have a Living Will/Durable Power of Wheat Cleaner for Health Care that is not on [...] after you have bathed. 5. NO nail costa rican/acrylic on at least one finger. If you are having a hand, wrist or foot surgery then all nail costa rican and artificial/acrylic nails must be removed from [...] please call the Preadmission Testing office at [phone], Mon.-Fri. 7 a.m.-3 p.m. Leave a voicemail [...] appointment with your doctor. documented in this encounter[facility] Center[id number] Miscellaneous Notes* Perioperative Nursing Note - Casi Centeno RN - 07/25/2024 2:15 PM EDT Preoperative Education Checklist- General Surgery date: 07/28/24 Surgery time: 0900 a.m. Arrival time: 0700 a.m. 1. Bring a photo ID and your insurance card with you the day of surgery. You will check in at the main lobby of the [facility]- registration desk is straight ahead as soon as you walk in. Tell them you are here for surgery. 2. If you have a Living Will/Durable Power of Wheat Cleaner for Health Care that is not on [...] after you have bathed. 5. NO nail costa rican/acrylic on at least one finger. If you are having a hand, wrist or foot surgery then all nail costa rican and artificial/acrylic nails must be removed from [...] please call the Preadmission Testing office at [phone], Mon.-Fri. 7 a.m.-3 p.m. Leave a voicemail [...] reviewed. Patient verbalized understanding. [facility] Nurse Note* Perioperative Nursing Note - Casi Centeno RN - 07/25/2024 2:15 PM EDT Preoperative Education Checklist- General Surgery date: 07/28/24 Surgery time: 0900 a.m. Arrival time: 0700 a.m. 1. Bring a photo ID and your insurance card with you the day of surgery. You will check in at the main lobby of the [facility]- registration desk is straight ahead as soon as you walk in. Tell them you are here for surgery. 2. If you have a Living Will/Durable Power of Wheat Cleaner for Health Care that is not on [...] after you have bathed. 5. NO nail costa rican/acrylic on at least one finger. If you are having a hand, wrist or foot surgery then all nail costa rican and artificial/acrylic nails must be removed from [...] please call the Preadmission Testing office at [phone], Mon.-Fri. 7 a.m.-3 p.m. Leave a voicemail [...] to the follow-up appointment with your doctor. [facility] Nurse Note* Perioperative Nursing Note - Casi Centeno RN - 07/25/2024 2:15 PM EDT Hibiclens and surgical instructions reviewed. Patient verbalized understanding. [facility] Dipity [id number] Note Attestation signed by Clem Gallardo MD at 07/03/2024 9:36 AM I personally saw and examined the patient on the same date of service as resident/fellow . I discussed the findings and therapeutic plan with the resident/fellow . I agree with the documentation. [facility] Gastroenterology New Patient Visit - History & [...] PROT B12/Folate/Iron studies: No results found for: [id number] , FOLATE , IRON , TIBC , UIBC , IRONSAT , FERRITIN Viral Hepatitis No results found for: HEPAIGM , HAV , HEPBSAG , HEPBSAB , HEPBEAB , HEPBIGM , HEPBCAB , HEPBCOREAB , HBVNAT , HCVSCR , HEPCAB , HCVNAT , HCVPCR , HCVTMA Liver Workup No results found for: JENNIFER , SMOOTHMUSCAB , CERULOPLSM , [id number] , TTGA , IGA , TSH , [...] No complaints at t (more content not included)...[facility]10-02-2024 History of Present illness Narrative* Ning [...] Tobacco Use: High Risk (07/13/2023) Received from [employer] Patient History Smoking Tobacco Use: Never Smokeless Tobacco Use: Current Passive Exposure: Not on file Alcohol Use: Not on file Depression: Not at risk (01/07/2022) Received from [employer] PHQ-2 Total Score: 2 Physical Activity: Not [...] Information Document Information Other: Other PATHOLOGY REPORT [facility] 06/20/2024 00:00 Attached To: [...] you, Essence Wakefield DO documented in this encounterI[facility] [id number] History of Present illness Narrative* Ning Wakefield DO - 06/05/2024 10:30 AM EDT General Surgery H&P Alexei Velasquez 1950 Alexei Velasquez is a 73 y.o. male presents with chief complaint of Colonoscopy (Pt presents today for a colonoscopy. Pt states that he has never had a colonoscopy before. Pt states that he went to [facility] on 05/15 for rectal bleeding and constipation. He states that they prescribed Colace and he is still taking it and he believes it is helping. Pt gave his VIS sheet from [facility] and it states that they saw [...] Tobacco Use: High Risk (07/13/2023) Received from [employer] Patient History Smoking Tobacco Use: Never Smokeless Tobacco Use: Current Passive Exposure: Not on file Alcohol Use: Not on file Depression: Not at risk (01/07/2022) Received from [employer] PHQ-2 Total Score: 2 Physical Activity: Not [...] note No data available for this section [facility] Evaluation note Assessments not supported for this document type No Assessments [facility] Work Phone: Evaluation noteNo assessment information available [facility] Work Phone: Evaluation note* Diagnosis Adenocarcinoma of rectum (HCC) (CMS/HCC)- Primary documented in this encounter [facility]* Diagnosis Onset Date Resolution Status Adenocarcinoma of rectum acu te [facility] Work Phone: Evaluation note* Diagnosis Encounter for diagnostic colonoscopy due to change in bowel habits- Primary documented in this encounter [facility] HealthcareHistory of Present illness Narrative History of Present Illness not supported for this document type No History of Present Illness [facility] Work Phone: Hospital Discharge instructions No data available for this section [facility] Instructions Instructions not supported for this document type No Instructions [facility] Work Phone: patient problem outcome Narrative Includes: Evaluations & Outcomes for active Goals No Outcomes [facility] Work Phone: progress note No data available for this section [facility] Reason for referral (narrative)* Consultation (Routine) - Pending Review Specialty Diagnoses / Procedures Referred By Enedina t Referred To Contact Oncology Diagnoses Adenocarcinoma of rectum (HCC) (CMS/HCC) Procedures [place] OFFICE/OUTPATIENT NEW HIGH MDM 60 MINUTES Ning Wakefield DO [address] [facility] [address] [place] [address] Aimee Singh MD [address] [place] [address] Referral ID Status Reason Start Date Expiration Date Visits Requested Visits Authorized [id number] Pending Review Specialty Services Required 06/28/2024 12/25/2024 1 1 * Imaging (Routine) - Pending Review Specialty Diagnoses / Procedures Referred By Contac t Referred To Contact Radiology Diagnoses Adenocarcinoma of rectum (HCC) (CMS/HCC) Procedures MR pelvis w and wo contrast [facility] [address] [facility] [address] [place] [address] [facility] [address] [place] [address] Referral ID Status Reason Start Date Expiration Date V isits Requested Visits Authorized [id number] Pending Review 06/28/2024 12/25/2024 1 1 * Imaging (Routine) - Pending Review Specialty Diagnoses / Procedures Referred By Contac t Referred To Contact Radiology Diagnoses Adenocarcinoma of rectum (HCC) (CMS/HCC) Procedures CT CHEST ABDOMEN PELVIS W IV CONTRAST Ning Wakefield, [address] [facility] [address] [place] [address] [place] [address] Referral ID Status Reason Start Date Expiration Date V isits Requested Visits Authorized [id number] Pending Review 06/28/2024 12/25/2024 1 1 [facility] HealthcareReview of systems Narrative - Reported Review of Systems not supported for this document type No Review of Systems [facility] Work Phone: Summary Purpose Family History [...] CREATED AUTHOR AUTHOR'S ORGANIZ ATION 06/12/2020 [facility] DATE CREATED AUTHOR AUTHOR'S ORGANIZ ATION 06/29/2024 [facility] dical Specialists [facility] DATE CREATED AUTHOR AUTHOR'S ORGANIZ ATION 08/04/2024 [facility] DATE CREATED AUTHOR AUTHOR'S ORGANIZ ATION 09/07/2024 [facility] DATE CREATED AUTHOR AUTHOR'S ORGANIZ ATION 10/17/2024 [facility] DATE CREATED AUTHOR AUTHOR'S ORGANIZ ATION 11/25/2024 [facility] DATE CREATED AUTHOR AUTHOR'S ORGANIZ ATION 11/27/2024 [facility] Care Teams (unrecognized sec tion and content) Team Status: Inactive Member Role Status Dates Ning Wakefield DO Attending Provider Active Star t: June 20, 2024 End: June 20, 2024 Pst Specialist Relationship Specialty Start Date End Date Shabnam Villarreal MD [address] [place] [address] PCP - General Behavioral Health 06/05/24 Pst Specialist Relationship Specialty Start Date End Date Shabnam Villarreal MD [address] [place] [address] PCP - General Behavioral Health 06/05/24 Team Status: Active Member Role Status Dates [facility] Primary Care Provider Active Team Status: Inactive Member Role Status Dates Angelina Tomlinson MD Attending Provider Active Start: July 26, 2024 End: July 26, 2024 [facility] Primary Care Provider Active Start: July 26, 2024 End: July 26, 2024 Aimee Singh MD Referring Provider Active St art: July 26, 2024 End: July 26, 2024 Team Status: Active Member Role Status Dates [facility] Primary Care Provider Active Start: July 26, 2024 Angelina Tomlinson MD Attending Provider Active Start: July 26, 2024 Aimee Singh MD Referring Provider Active St art: July 26, 2024 Team Status: Inactive Member Role Status Dates [facility] Primary Care Provider Active Start: August 17, 2024 End: August 17, 2024 Angelina Tomlinson MD Attending Provider Active Start: August 17, 2024 End: August 17, 2024 Team Status: Active Member Role Status Dates [facility] Primary Care Provider Active Start: August 17, 2024 Angelina Tomlinson MD Attending Provider Active Start: August 17, 2024 Aimee Singh MD Referring Provider Active St art: August 17, 2024 Pst Specialist Relationship Specialty Start Date End Date Shabnam Villarreal MD [address] [place] [address] PCP - General Behavioral Health 06/05/24 Pst Specialist Relationship Specialty Start Date End Date Shabnam Villarreal MD [address] [place] [address] PCP - General Behavioral Health 06/05/24 Pst Specialist Relationship Specialty Start Date End Date Raffi Byrd MD [address] [place] [address] PCP - General Internal Medicine 01/01/22 Goals [...] before. Pt states that he went to [facility] ER on 05/15 for rectal bleeding and constipation. He states that they prescribed Colace and he is still taking it and he believes it is helping. Pt gave his VIS sheet from [facility] and it states that they saw [...] BE BASED ON THE PRIMARY CLINICAL RECORDS. [employer] provides no warranty or guarantee of the accuracy or completeness of information in this document.
== END 2024-11-29 09:27 | disposition home or self-care (01) ==
LOC: CT 09:26
PROVIDERS: Visit Provider Internal Medicine Hematology & Oncology
DX: C20 Malignant neoplasm of rectum (principal); D64.9 Anemia, unspecified; R11.2 Nausea with vomiting, unspecified; D50.9 Iron deficiency anemia, unspecified; K90.9 Intestinal malabsorption, unspecified; R05.1 Acute cough
CPT/HCPCS: 71260; Q9967

== ENCOUNTER 2024-12-14 07:36 | Outpatient (RCR) | payer MEDICARE, SELFPAY ==
[2024-11-28 09:14] LABS: Eosinophils Absolute Auto 0.2 10^3/uL (0.0-0.7); Eosinophils Percent Auto 4.8 % (0.9-7.0); Hematocrit 30.2 % (42.0-54.0); Hemoglobin 10.2 g/dL (14.0-18.0); Immature Granulocytes Abs Auto 0.01 10^3/uL (0.00-0.03); Immature Granulocytes Pct Auto 0.3 % (0.0-0.5); Lymphocytes Absolute Auto 1.7 10^3/uL (1.2-3.8); Lymphocytes Percent Auto 42.2 % (20.5-60.0); Mean Corpuscular HGB Conc 33.8 g/dL (29.9-35.2); Mean Corpuscular Hemoglobin 31.8 pg (25.9-34.0); Mean Corpuscular Volume 94.1 fL (80.0-94.0); Monocytes Percent Auto 24.1 % (1.7-12.0); Neutrophils Absolute Auto 1.1 10^3/uL (1.4-6.5); Neutrophils Percent Auto 27.6 % (43.0-75.0); Platelet Count 180 10^3/uL (150-450); Red Blood Count 3.21 10^6/uL (4.70-6.10); Red Cell Distribution Width 25.5 % (11.0-15.0)
[2024-11-28 09:35] LABS: Alanine Aminotransferase 13 U/L (16-63); Albumin Globulin Ratio 0.6; Albumin Level 2.6 g/dL (3.4-5.0); Alkaline Phosphatase 134 U/L (46-116); Aspartate Amino Transferase 21 U/L (15-37); BUN Creatinine Ratio 8.4; Bilirubin Total 0.3 mg/dL (0.2-1.0); Calcium 8.7 mg/dL (8.5-10.1); Carbon Dioxide 28.7 mmol/L (21.0-32.0); Chloride 101 mmol/L (98-107); Estimated GFR (African America >60 (>=60 mL/min/1.73m^2); Estimated GFR (Non-African Ame >60 (>=60 mL/min/1.73m^2); Globulin 4.3 g/dL; Glucose 105 mg/dL (74-106); Magnesium 1.8 mg/dL (1.8-2.4); Potassium 3.7 mmol/L (3.5-5.1); Sodium 133 mmol/L (136-145); Total Protein 6.9 g/dL (6.4-8.2)
[2024-11-28 09:55] VITALS: BP 121/59; PULSE 68; TEMP 35.9; O2SAT 97
[2024-11-28 10:29] LABS: Erythrocyte Sedimentation Rate 115 mm/hr (<=20)
[2024-11-28 10:38] LABS: C Reactive Protein 0.95 mg/dL (<=0.50)
[2024-11-28] MEDS: 0.9 % SODIUM CHLORIDE 250 ML 10 ML IV (10:42)
[2024-11-28] MEDS: PALONOSETRON HCL 0.25 MG/5 ML VIAL IV (10:43)
[2024-11-28] MEDS: DEXAMETHASONE SODIUM PHOSPHATE 8 MG in 0.9 % SODIUM CHLORIDE 100 ML 306 MG IV (10:44)
[2024-11-28] MEDS: WATER IV (11:14)
[2024-11-28] MEDS: DEXTROSE 5% IV (11:14)
[2024-11-28] MEDS: LEUCOVORIN CALCIUM IV (11:14)
--- NOTE | 2024-11-28 11:34 | PC.NURSE ---
Tolerating infusion without any issues, up to bathroom, tolerates activity well. Lunch ordered
[2024-11-28] MEDS: FLUOROURACIL IV (12:18)
[2024-11-28] MEDS: SODIUM CHLORIDE 0.9% IV (12:18)
--- NOTE | 2024-11-28 12:33 | PC.NURSE ---
1225 leucovorin infused. 5FU chemo ball placed to port-a-cath. with 2 day pump(elastomeric pump) both clamps open. patient educated on making sure clamps stay open and to return on for removal. patient and brother verbalize understanding. Released ambulatory
[2024-11-29 04:08] LABS: Vitamin B12 643 pg/mL (232-1245)
[2024-11-30] MEDS: HEPARIN SODIUM (PORCINE) PF LOCK FLUSH 500 UNIT/5 ML SYRINGE IV (13:05)
[2024-12-12 09:40] VITALS: BP 126/74; PULSE 76; TEMP 36.4; O2SAT 94
[2024-12-12 09:59] LABS: Basophils Absolute Auto 0.1 10^3/uL (0.0-0.1); Basophils Percent Auto 1.7 % (0.2-2.0); Eosinophils Absolute Auto 0.2 10^3/uL (0.0-0.7); Eosinophils Percent Auto 2.6 % (0.9-7.0); Hematocrit 33.3 % (42.0-54.0); Hemoglobin 11.2 g/dL (14.0-18.0); Immature Granulocytes Abs Auto 0.02 10^3/uL (0.00-0.03); Immature Granulocytes Pct Auto 0.3 % (0.0-0.5); Lymphocytes Absolute Auto 1.7 10^3/uL (1.2-3.8); Lymphocytes Percent Auto 26.4 % (20.5-60.0); Mean Corpuscular HGB Conc 33.6 g/dL (29.9-35.2); Mean Corpuscular Hemoglobin 32.4 pg (25.9-34.0); Mean Corpuscular Volume 96.2 fL (80.0-94.0); Mean Platelet Volume 9.5 fL (9.5-13.5); Monocytes Absolute Auto 0.9 10^3/uL (0.3-0.8); Neutrophils Absolute Auto 3.6 10^3/uL (1.4-6.5); Platelet Count 191 10^3/uL (150-450); Red Blood Count 3.46 10^6/uL (4.70-6.10); Red Cell Distribution Width 23.3 % (11.0-15.0); White Blood Count 6.5 10^3/uL (4.0-11.0)
[2024-12-12 10:14] LABS: Alanine Aminotransferase 15 U/L (16-63); Albumin Globulin Ratio 0.6; Albumin Level 2.9 g/dL (3.4-5.0); Alkaline Phosphatase 145 U/L (46-116); Anion Gap 12.2; Aspartate Amino Transferase 22 U/L (15-37); BUN Creatinine Ratio 20.7; Bilirubin Total 0.5 mg/dL (0.2-1.0); Calcium 9.3 mg/dL (8.5-10.1); Carbon Dioxide 26.8 mmol/L (21.0-32.0); Chloride 100 mmol/L (98-107); Estimated GFR (African America >60 (>=60 mL/min/1.73m^2); Estimated GFR (Non-African Ame >60 (>=60 mL/min/1.73m^2); Globulin 4.5 g/dL; Glucose 112 mg/dL (74-106); Magnesium 1.7 mg/dL (1.8-2.4); Sodium 135 mmol/L (136-145); Total Protein 7.4 g/dL (6.4-8.2)
[2024-12-12] MEDS: DEXTROSE 5 % IN WATER 250 ML 10 ML IV (10:30)
[2024-12-12] MEDS: PALONOSETRON HCL 0.25 MG/5 ML VIAL IV (10:49)
[2024-12-12] MEDS: DEXAMETHASONE SODIUM PHOSPHATE 8 MG in 0.9 % SODIUM CHLORIDE 100 ML 306 MG IV (10:55)
--- NOTE | 2024-12-12 11:15 | PC.NURSE ---
1039: Pre-meds initiated at this time. Pt. up to bathroom to void. Denies needs or c/o.
[2024-12-12] MEDS: WATER IV ×2 (12:14→12:15)
[2024-12-12] MEDS: OXALIPLATIN IV (12:14)
[2024-12-12] MEDS: DEXTROSE 5% IV ×2 (12:14→12:15)
[2024-12-12] MEDS: LEUCOVORIN CALCIUM IV (12:15)
--- NOTE | 2024-12-12 13:56 | PC.NURSE ---
Pt. tolerating infusions without c/o. Up to bathroom occasionally per. self to void. Denies needs.
[2024-12-12] MEDS: SODIUM CHLORIDE 0.9% IV (14:30)
[2024-12-12] MEDS: FLUOROURACIL IV (14:30)
[2024-12-12 14:37] VITALS: BP 124/70; PULSE 68; TEMP 36.6; O2SAT 95
[2024-12-14] MEDS: HEPARIN SODIUM (PORCINE) PF LOCK FLUSH 500 UNIT/5 ML SYRINGE IV (13:17)
== END 2024-12-18 10:18 | disposition home or self-care (01) ==
LOC: HEMC 07:36
PROVIDERS: Visit Provider Internal Medicine Hematology & Oncology
DX: Z51.11 Encounter for antineoplastic chemotherapy (principal); C20 Malignant neoplasm of rectum; D64.9 Anemia, unspecified; R11.2 Nausea with vomiting, unspecified; D50.9 Iron deficiency anemia, unspecified; K90.9 Intestinal malabsorption, unspecified; R05.1 Acute cough; F17.220 Nicotine dependence, chewing tobacco, uncomplicated; R91.1 Solitary pulmonary nodule; K92.1 Melena
CPT/HCPCS: 36415; 36591; 80053; 82607; 82728; 82746; 83540; 83550; 83735; 85025; 85652; 86140; 96365; 96366; 96367; 96368; 96375; 96413; 96415; 96416; G0463; J0640; J1100; J1642; J2469; J9190; J9263

== ENCOUNTER 2024-12-26 07:34 | Outpatient (RCR) | payer MEDICARE, SELFPAY ==
[2024-12-26] MEDS: HEPARIN SODIUM (PORCINE) PF LOCK FLUSH 500 UNIT/5 ML SYRINGE IV (10:32)
[2024-12-26 10:55] LABS: Basophils Absolute Auto 0.1 10^3/uL (0.0-0.1); Basophils Percent Auto 1.2 % (0.2-2.0); Eosinophils Absolute Auto 0.4 10^3/uL (0.0-0.7); Eosinophils Percent Auto 5.1 % (0.9-7.0); Hematocrit 32.6 % (42.0-54.0); Immature Granulocytes Abs Auto 0.02 10^3/uL (0.00-0.03); Immature Granulocytes Pct Auto 0.3 % (0.0-0.5); Lymphocytes Absolute Auto 1.4 10^3/uL (1.2-3.8); Lymphocytes Percent Auto 17.9 % (20.5-60.0); Mean Corpuscular HGB Conc 33.7 g/dL (29.9-35.2); Mean Corpuscular Hemoglobin 34.1 pg (25.9-34.0); Mean Corpuscular Volume 100.9 fL (80.0-94.0); Mean Platelet Volume 9.8 fL (9.5-13.5); Monocytes Absolute Auto 1.3 10^3/uL (0.3-0.8); Monocytes Percent Auto 16.5 % (1.7-12.0); Neutrophils Absolute Auto 4.5 10^3/uL (1.4-6.5); Platelet Count 158 10^3/uL (150-450); Red Blood Count 3.23 10^6/uL (4.70-6.10); Red Cell Distribution Width 17.8 % (11.0-15.0); White Blood Count 7.7 10^3/uL (4.0-11.0)
[2024-12-26 11:23] LABS: Alanine Aminotransferase 13 U/L (16-63); Albumin Globulin Ratio 0.7; Alkaline Phosphatase 145 U/L (46-116); Anion Gap 14.3; Aspartate Amino Transferase 30 U/L (15-37); BUN Creatinine Ratio 10.3; Bilirubin Total 1.2 mg/dL (0.2-1.0); Calcium 8.8 mg/dL (8.5-10.1); Carbon Dioxide 25.6 mmol/L (21.0-32.0); Chloride 104 mmol/L (98-107); Estimated GFR (African America >60 (>=60 mL/min/1.73m^2); Estimated GFR (Non-African Ame >60 (>=60 mL/min/1.73m^2); Globulin 4.2 g/dL; Glucose 102 mg/dL (74-106); Magnesium 1.9 mg/dL (1.8-2.4); Potassium 3.9 mmol/L (3.5-5.1); Sodium 140 mmol/L (136-145); Total Protein 7.2 g/dL (6.4-8.2)
== END 2024-12-27 08:05 | disposition home or self-care (01) ==
LOC: HEMC 07:34
PROVIDERS: Visit Provider Internal Medicine Hematology & Oncology
DX: C20 Malignant neoplasm of rectum (principal); D64.9 Anemia, unspecified; R11.2 Nausea with vomiting, unspecified; D50.9 Iron deficiency anemia, unspecified; K90.9 Intestinal malabsorption, unspecified; R05.1 Acute cough; Z79.01 Long term (current) use of anticoagulants; F17.220 Nicotine dependence, chewing tobacco, uncomplicated
CPT/HCPCS: 36415; 36591; 80053; 82378; 83735; 85025; G0463; J1642

== ENCOUNTER 2025-02-20 08:54 | Outpatient (OUT) | payer MEDICARE, SELFPAY ==
--- NOTE | 2025-02-20 09:27 | CT_ITS ---
The [address] [address] Patient Name: ROLDAN COTE MRN: [id number] date: 1950 Sex: M Assigned Patient Location: LAB Current Patient Location: LAB Accession/Order Number: [id number] Exam Date: 02/20/2025 11:50 Report Date: 02/20/2025 12:41 At the request of: NEYMAR LERMA MD Procedure: CT abdomen pelvis w con CT CHEST, ABDOMEN AND PELVIS WITH INTRAVENOUS CONTRAST: CLINICAL HISTORY: Restaging rectal cancer. Last chemotherapy 6 weeks ago. Acute Cough COMPARISON: 07/11/2024 TECHNIQUE: Spiral images were obtained through the chest, abdomen and pelvis following oral and intravenous administration of 100 mL of Omnipaque 300. Images of the chest were reviewed using both narrow and wide window settings. This CT exam was performed using one or more following dose reduction techniques: Automated exposure control, adjustment of the mA and/or kV according to patient size, or use of iterative reconstruction technique. A right-sided Rcsqyq-p-Aycw catheter is seen. The heart is mildly prominent. No pericardial effusion is present. There is minimal coronary disease. No aortic aneurysm or dissection is noted. There is minimal atherosclerotic plaque at the aortic arch. Scattered mediastinal and hilar lymph nodes are present, slightly larger. A prevascular lymph node on the left which previously measured 8 mm in short axis dimension and 1 cm. Ground glass parenchymal changes are again seen, greatest at the right upper lobe there is interval worsening. Scattered areas of linear scarring or atelectasis are noted. There is interstitial thickening having a somewhat fibrotic appearance, greatest at the lower lungs. Pulmonary nodularity on the left has increased. The largest nodule at the lower lobe measuring 1 cm. There is slight dextroscoliotic curvature as well as mild degenerative changes involving the spine. There is some motion artifact. There is slight decreased attenuation of the hepatic parenchyma that may be fatty infiltration. No intrahepatic masses are identified. No calcified gallstones are noted. The spleen, pancreas and adrenal glands show no acute findings. There are symmetric renal nephrograms, without hydronephrosis. There is scarring at the lower pole the right kidney. The abdominal aorta is normal caliber and there is minimal atherosclerotic plaque. No enlarged lymph nodes are identified. No ascites is seen. There are normal caliber small bowel loops. Mild stool is visualized along the colon. Dextroscoliotic curvature and mild degenerative changes are seen at the spine. Imaging of the pelvis shows normal caliber small bowel loops. There is no appendiceal inflammation. There is a small amount of colonic stool. Sigmoid diverticula are seen. There is no active inflammation. The wall thickening seen at the rectum at the time of the prior has essentially resolved. There is mild presacral fibrofatty stranding as well as some stranding along the paracolic gutters of the pelvis. There is no ascites. The prostate appears small. The urinary bladder is poorly distended and there is apparent wall thickening. There are small benign-appearing inguinal lymph nodes. No intrapelvic lymphadenopathy is identified. Minor degenerative change is seen at the SI joints and hips. CT/CT chest w con IMPRESSION: MILD CARDIOMEGALY. INCREASING MEDIASTINAL AND HILAR LYMPHADENOPATHY. INCREASING LEFT-SIDED PULMONARY NODULARITY. WORSENING PULMONARY PARENCHYMAL CHANGES. SUSPECTED FATTY LIVER. NO DEVELOPING LYMPHADENOPATHY. IMPROVEMENT OF WALL THICKENING SEEN PREVIOUSLY AT THE RECTUM. DIVERTICULOSIS. URINARY BLADDER WALL THICKENING. THIS MAY RELATE TO UNDERDISTENTION THOUGH CORRELATION IS SUGGESTED TO EXCLUDE ANY POSSIBILITY OF CYSTITIS. Impression dictated by: Arianna eVga M.D. 02/20/2025 12:41 PM Dictation Location: [place] [address] Electronically authenticated by: [id number] Y Date: 02/20/2025 12:41
--- NOTE | 2025-02-20 09:27 | CT_ITS ---
The [address] [address] Patient Name: ROLDAN COTE MRN: [id number] date: 1950 Sex: M Assigned Patient Location: LAB Current Patient Location: LAB Accession/Order Number: [id number] Exam Date: 02/20/2025 11:50 Report Date: 02/20/2025 12:41 At the request of: NEYMAR LERMA MD Procedure: CT abdomen pelvis w con CT CHEST, ABDOMEN AND PELVIS WITH INTRAVENOUS CONTRAST: CLINICAL HISTORY: Restaging rectal cancer. Last chemotherapy 6 weeks ago. Acute Cough COMPARISON: 07/11/2024 TECHNIQUE: Spiral images were obtained through the chest, abdomen and pelvis following oral and intravenous administration of 100 mL of Omnipaque 300. Images of the chest were reviewed using both narrow and wide window settings. This CT exam was performed using one or more following dose reduction techniques: Automated exposure control, adjustment of the mA and/or kV according to patient size, or use of iterative reconstruction technique. A right-sided Lfjenp-n-Xdmg catheter is seen. The heart is mildly prominent. No pericardial effusion is present. There is minimal coronary disease. No aortic aneurysm or dissection is noted. There is minimal atherosclerotic plaque at the aortic arch. Scattered mediastinal and hilar lymph nodes are present, slightly larger. A prevascular lymph node on the left which previously measured 8 mm in short axis dimension and 1 cm. Ground glass parenchymal changes are again seen, greatest at the right upper lobe there is interval worsening. Scattered areas of linear scarring or atelectasis are noted. There is interstitial thickening having a somewhat fibrotic appearance, greatest at the lower lungs. Pulmonary nodularity on the left has increased. The largest nodule at the lower lobe measuring 1 cm. There is slight dextroscoliotic curvature as well as mild degenerative changes involving the spine. There is some motion artifact. There is slight decreased attenuation of the hepatic parenchyma that may be fatty infiltration. No intrahepatic masses are identified. No calcified gallstones are noted. The spleen, pancreas and adrenal glands show no acute findings. There are symmetric renal nephrograms, without hydronephrosis. There is scarring at the lower pole the right kidney. The abdominal aorta is normal caliber and there is minimal atherosclerotic plaque. No enlarged lymph nodes are identified. No ascites is seen. There are normal caliber small bowel loops. Mild stool is visualized along the colon. Dextroscoliotic curvature and mild degenerative changes are seen at the spine. Imaging of the pelvis shows normal caliber small bowel loops. There is no appendiceal inflammation. There is a small amount of colonic stool. Sigmoid diverticula are seen. There is no active inflammation. The wall thickening seen at the rectum at the time of the prior has essentially resolved. There is mild presacral fibrofatty stranding as well as some stranding along the paracolic gutters of the pelvis. There is no ascites. The prostate appears small. The urinary bladder is poorly distended and there is apparent wall thickening. There are small benign-appearing inguinal lymph nodes. No intrapelvic lymphadenopathy is identified. Minor degenerative change is seen at the SI joints and hips. CT/CT abdomen pelvis w con IMPRESSION: MILD CARDIOMEGALY. INCREASING MEDIASTINAL AND HILAR LYMPHADENOPATHY. INCREASING LEFT-SIDED PULMONARY NODULARITY. WORSENING PULMONARY PARENCHYMAL CHANGES. SUSPECTED FATTY LIVER. NO DEVELOPING LYMPHADENOPATHY. IMPROVEMENT OF WALL THICKENING SEEN PREVIOUSLY AT THE RECTUM. DIVERTICULOSIS. URINARY BLADDER WALL THICKENING. THIS MAY RELATE TO UNDERDISTENTION THOUGH CORRELATION IS SUGGESTED TO EXCLUDE ANY POSSIBILITY OF CYSTITIS. Impression dictated by: Arianna Vega M.D. 02/20/2025 12:41 PM Dictation Location: [place] [address] Electronically authenticated by: [id number] Y Date: 02/20/2025 12:41
[2025-02-20 09:29] LABS: Basophils Absolute Auto 0.1 10^3/uL (0.0-0.1); Basophils Percent Auto 0.9 % (0.2-2.0); Eosinophils Absolute Auto 0.2 10^3/uL (0.0-0.7); Hematocrit 40.1 % (42.0-54.0); Hemoglobin 13.3 g/dL (14.0-18.0); Immature Granulocytes Abs Auto 0.01 10^3/uL (0.00-0.03); Immature Granulocytes Pct Auto 0.1 % (0.0-0.5); Lymphocytes Absolute Auto 1.3 10^3/uL (1.2-3.8); Mean Corpuscular HGB Conc 33.2 g/dL (29.9-35.2); Mean Corpuscular Hemoglobin 32.5 pg (25.9-34.0); Mean Platelet Volume 10.3 fL (9.5-13.5); Monocytes Absolute Auto 0.6 10^3/uL (0.3-0.8); Monocytes Percent Auto 7.7 % (1.7-12.0); Neutrophils Absolute Auto 5.4 10^3/uL (1.4-6.5); Neutrophils Percent Auto 71.3 % (43.0-75.0); Platelet Count 198 10^3/uL (150-450); Red Blood Count 4.09 10^6/uL (4.70-6.10); Red Cell Distribution Width 12.9 % (11.0-15.0); White Blood Count 7.6 10^3/uL (4.0-11.0)
[2025-02-20 09:35] LABS: Erythrocyte Sedimentation Rate 92 mm/hr (<=20)
[2025-02-20 09:56] LABS: Alanine Aminotransferase 15 U/L (16-63); Albumin Globulin Ratio 0.7; Albumin Level 3.4 g/dL (3.4-5.0); Alkaline Phosphatase 182 U/L (46-116); Anion Gap 14.3; Aspartate Amino Transferase 25 U/L (15-37); Bilirubin Total 0.7 mg/dL (0.2-1.0); C Reactive Protein <0.50 mg/dL (<=0.50); Calcium 9.2 mg/dL (8.5-10.1); Carbon Dioxide 28.1 mmol/L (21.0-32.0); Chloride 104 mmol/L (98-107); Estimated GFR (African America >60 (>=60 mL/min/1.73m^2); Estimated GFR (Non-African Ame >60 (>=60 mL/min/1.73m^2); Glucose 113 mg/dL (74-106); Potassium 4.4 mmol/L (3.5-5.1); Sodium 142 mmol/L (136-145); Total Protein 8.4 g/dL (6.4-8.2)
[2025-02-20 10:12] LABS: Percent Iron Saturation 23.8 %
[2025-02-20] MEDS: HEPARIN SODIUM (PORCINE) PF LOCK FLUSH 500 UNIT/5 ML SYRINGE IV (10:37)
[2025-02-21 04:07] LABS: CEA 6.3 ng/mL (0.0-4.7); Vitamin B12 422 pg/mL (232-1245)
== END 2025-02-20 08:55 | disposition home or self-care (01) ==
LOC: LAB 08:55
PROVIDERS: Visit Provider Internal Medicine Hematology & Oncology
DX: C20 Malignant neoplasm of rectum (principal); D64.9 Anemia, unspecified; R11.2 Nausea with vomiting, unspecified; D50.9 Iron deficiency anemia, unspecified; K90.9 Intestinal malabsorption, unspecified; R05.1 Acute cough; I51.7 Cardiomegaly; R59.0 Localized enlarged lymph nodes; R91.8 Other nonspecific abnormal finding of lung field; K57.90 Diverticulosis of intestine, part unspecified, without perforation or abscess without bleeding
CPT/HCPCS: 36415; 71260; 74177; 80053; 82378; 82607; 82728; 82746; 83540; 83550; 83735; 85025; 85652; 86140; J1642; Q9967

== ENCOUNTER 2025-03-06 09:20 | Outpatient (RCR) | payer MEDICARE, SELFPAY | END 2025-03-07 08:09 | disposition home or self-care (01) | LOC: HEMC 09:20 | PROVIDERS: Visit Provider Internal Medicine Hematology & Oncology | DX: C20 Malignant neoplasm of rectum (principal); Z79.01 Long term (current) use of anticoagulants; F17.220 Nicotine dependence, chewing tobacco, uncomplicated; D64.9 Anemia, unspecified; R11.2 Nausea with vomiting, unspecified; K90.9 Intestinal malabsorption, unspecified; R05.1 Acute cough | CPT/HCPCS: G0463 ==

== ENCOUNTER 2025-03-26 14:18 | Outpatient (OUT) | payer MEDICARE, SELFPAY ==
--- OUTSIDE RECORDS SUMMARY | 2024-09-05 08:45 | XMS_ITS ---
Author Organization [facility] Address [address] [place], [place] [id number] Care Team Providers Care Sheet Finisher Name Role Phone Yamileth Wilson Primary Care Provider Esther Tavarez [phone] REASON FOR VISIT 3 month HTN Social History Sex Assigned At : Social History Observation Description Sex Assigned At Male Encounters Encounter Location Date Provider Diagnosis Main [address] [place] [id number] 09/05/2024 Esther Tavarez Plan Of Treatment Next Appt Details Provider Name:Yamileth Wilson , 04/02/2025 11:00:00 AM, [address] [place], [id number], Progress Notes * Alexei COTE DDOB: [birth year] (74 yo M)Acc No.[id number]:09/05/2024 Medical Note Patient: Alexei STEVENS Provider: Angela Tavarez :1950 A ge:74 Y S ex:Male Date:09/05/2024 Address:[address] [place], [place] [id number] Pcp:Yamileth Wilson Subjective: * Chief Complaints: * 1 . 3 month HTN. * Medical History: Objective: * Vitals: Assessment: Plan: * Treatment: * Billing Information: * Visit Code: * Procedure Codes: * Electronic signature of JHON Vallejo on 03/26/2025 at 02:25 PM EDT Sign off status: Pending * Provider: Angela Tavarez Date: 11/06/2023 Generated for Printi ng/Faxing/eTransmitting on: 0 03/26/2025 02:25 PM EDT
--- OUTSIDE RECORDS SUMMARY | 2024-12-26 05:45 | XMS_ITS ---
Author Organization [facility] [place] Address [address] [place] [address] Care Team Providers Care Percolator Operator Name Role Phone Hawa MINAYA, Kristin Primary Care Provider Aimee Thomason Unavailable [phone] REASON FOR VISIT OXALIplatin (Eloxatin) Encounters Encounter Location Date Provider Diagnosis [facility] [address] [place] [address] 12/26/2024 Aimee Singh Plan Of Treatment Next Appt Details Provider Name:Aimee Singh , 04/03/2025 02:15:00 PM, [address] [place], [address], Progress Notes * Alexei COTE DDOB: [birth year] (74 yo M)Acc No.[id number]:12/26/2024 UNLOCKED PROGRESS NOTE Progress Note Patient: Alexei STEVENS Provider: Sade Singh M.D. :1950 A ge:74 Y S ex:Male Date:12/26/2024 Address:[address] [place] [id number] Pcp:Kristin Shaikh MD Subjective: * Chief Complaints: * 1 . OXALIplatin (Eloxatin). * Medical History: Objective: * Vitals: Assessment: Plan: * Treatment: * * Electronic signature of Talib Singh MD, [id number] on 03/26/2025 at 02:25 PM EDT Sign off status: Pending Visit Status: C ANC (Cancelled) * Provider: Sade Singh M.D. Date: 0 12/26/2024 Generated for Inez cooper/Shaw/Breonna on: 0 03/26/2025 02:25 PM EDT
--- OUTSIDE RECORDS SUMMARY | 2025-03-06 07:15 | XMS_ITS ---
Author Organization The [facility] [place] Address [address] [place] [address] Care Team Providers Care Naturalist Name Role Phone Hawa MINAYA, Kristin Primary Care Provider Aimee Thomason [phone] REASON FOR VISIT MD Encounters Encounter Location Date Provider Diagnosis [facility] [address] [place] [address] 03/06/2025 Aimee Singh Plan Of Treatment Next Appt Details Provider Name:Aimee Singh , 04/03/2025 02:15:00 PM, [address] [place], [address], Progress Notes * Alexei COTE DDOB: [birth year] (74 yo M)Acc No.[id number]:03/06/2025 UNLOCKED PROGRESS NOTE Progress Notes Patient: Alexei STEVENS Provider: Sade Singh M.D. :1950 A ge:74 Y S ex:Male Date:03/06/2025 Address:[address] [place] [id number] Pcp:Kristin Shaikh MD Subjective: * Chief Complaints: * 1 . MD. * Medical History: Objective: * Vitals: Assessment: Plan: * Treatment: * * Electronic signature of Talib Singh MD, [id number] on 03/26/2025 at 02:24 PM EDT Sign off status: Pending Visit Status: C ANC (Cancelled) * Provider: Sade Singh M.D. Date: 0 03/06/2025 Generated for Inez Ace/Breonna on: 03/26/2025 02:24 PM EDT
--- OUTSIDE RECORDS SUMMARY | 2025-03-06 09:00 | XMS_ITS ---
Author Organization The [facility] [place] Address [address] [place] [address] Care Team Providers Care Zigzag Topstitcher Name Role Phone Hawa MINAYA, Kristin Primary Care Provider Aimee Thomason [phone] REASON FOR VISIT MD Encounters Encounter Location Date Provider Diagnosis [facility] [address] [place] [address] 03/06/2025 Aimee Singh Plan Of Treatment Next Appt Details Provider Name:Aimee Singh , 04/03/2025 02:15:00 PM, [address] [place], [address], Progress Notes * Alexei COTE DDOB: [birth year] (74 yo M)Acc No.[id number]:03/06/2025 UNLOCKED PROGRESS NOTE Progress Notes Patient: Alexei STEVENS Provider: Sade Singh M.D. :1950 A ge:74 Y S ex:Male Date:03/06/2025 Address:[address] [place] [id number] Pcp:Kristin Shaikh MD Subjective: * Chief Complaints: * 1 . MD. * Medical History: Objective: * Vitals: Assessment: Plan: * Treatment: * * Electronic signature of Talib Singh MD, [id number] on 03/26/2025 at 02:25 PM EDT Sign off status: Pending Visit Status: C ONFPHONE (Voice) * Provider: Sade Singh M.D. Date: 0 03/06/2025 Generated for Inez cooper/Shaw/Breonna on: 0 03/26/2025 02:25 PM EDT
--- OUTSIDE RECORDS SUMMARY | 2025-03-22 18:46 | XMS_ITS | Encounter Summary ---
Author Organization [facility] tem Address [id number] [address] [place] [address] Care Team Providers Care Brim Cutter Name Role Phone Services, [facility] Primary Care Provider Reason for Visit * Reason Comments Alcohol Intoxication Pt arrives via ems after being found on his knees crawling around by [place] by [employer] Encounter Details Date Type Department Care Team (Late st Contact Info) Description 03/22/2025 6:46 PM EDT - 03/22/2025 9:11 PM EDT Emergency [facility] - Emergency [address] [place] [address] Elvin Del Cid, DO [address] [place] [address] Alcoholic intoxication without complication (Primary Dx) Discharge Disposition: Home Social History Tobacco Use Types Packs/Day Years Used Date Smoking Tobacco: Never Smokeless Tobacco: Current Chew Alcohol Use Standard Drinks/Week Comments Yes 14 (1 standard drink = 0.6 oz pure alcohol) beer daily, 2-4 cans per day and some occassional shots of whiskey PHQ-2 Answer Date Recorded Total Score 2 01/07/2022 Childcare Answer Date Recorded Childcare Unknown 03/08/2019 Employment Answer Date Recorded Employment Unknown 03/08/2019 Hunger Screening Answer Date Recorded Within the past 12 months we worried whether our food would run out before we got money to buy more. Never True 03/22/2025 Within the past 12 months th e food we bought just didn't last and we didn't have money to get more. Never True 03/22/2025 Purpose - Life Answer Date Recorded Purpose and direction in life Unknown Sex and Gender Information Value Date Recorded Sex Assigned at Not on file Legal Sex Male 1:31 PM EST Gender Identity Not on file Sexual Orientation Not on file documented as of this encounter Last Filed Vital Signs Vital Sign Reading Time Taken Comments Blood Pressure 111/67 03/22/2025 7:30 PM EDT Pulse 81 03/22/2025 8:00 PM EDT Temperature 37.1 C (98.7 F) 03/22/2025 6:51 PM EDT Respiratory Rate 25 03/22/2025 8:00 PM EDT Oxygen Saturation 99% 03/22/2025 8:00 PM EDT Inhaled Oxygen Concentration - - Weight 88.5 kg (195 lb) 03/22/2025 6:51 PM EDT Height 177.8 cm (5' 10 ) 03/22/2025 6:51 PM EDT Body Mass Index 27.98 03/22/2025 6:51 PM EDT documented in this encounter Discharge Instructions * Discharge Instructions* Elvin Del Cid DO - 03/22/2025 8:52 PM EDT Please read and follow all instructions. Continue home medications as previously prescribed. Please contact your primary care provider in 1 to 2 days to arrange for outpatient follow up. If you do not have one you may call [phone] for a list. Do not drink alcohol to excess. Return to the Emergency Department for worsening symptoms or for any additional concerns. * Attachments The following attachments cannot be sent through Care Everywhere. * Alcohol use disorder – ED discharge instructions (Congolese) * Alcohol and your health (Congolese) documented in this encounter Medications at Time of Discharge apixaban (ELIQUIS) 5 mg tablet Take 1 tablet (5 mg total) by mouth in the morning and 1 tablet (5 mg total) before bedtime. 60 tablet 11 01/22/2022 atorvastatin (LIPITOR) 20 mg tablet Take 1 tablet (20 mg total) by mouth in the morning. 03/04/2020 dilTIAZem CD (CARDIZEM CD) 120 mg 24 hr capsule TAKE 1 CAPSULE BY MOUTH EVERY DAY 90 capsule 3 06/29/2023 docusate sodium (COLACE) 100 mg capsule Take 1 capsule (100 mg total) by mouth in the morning and 1 capsule (100 mg total) before bedtime. losartan-hydroCHL OROthiazide (HYZAAR) 100-12.5 mg per tablet Take 1 tablet by mouth in the morning. documented as of this encounter ED Notes * Elvin Del Cid, DO - 03/22/2025 6:49 PM EDT Images from the original note were not included. [facility] - EMERGENCY Pt Name: Alexei Velasquez Birthdate: 1950 Chief Complaint: Chief Complaint Patient presents with Alcohol Intoxication Pt arrives via ems after being found on his knees crawling around by [place] by [employer] History of Present Illness: Initial evaluation by Dr. Nan Del Cid at 6:49 PM. Alexei Velasquez is a 74 y.o. male brought to the ED for evaluation of alcohol intoxication. EMSreports he was drunk outside by [place] and was found on his knees crawling around. EMS reports no evidence of fall or injury. Pt reports the heat got to him and he had too much to drink. Denies a fall or injury. No headache. Pt reports drinking whiskey and doing multiple shots. Pt denies recent illness, fever, diarrhea, vomiting, abdominal pain, passing out, or losing consciousness. No chest pain. No palpitations. No near syncope. No paresthesias, weakness, or stroke concerns. Pt reports feeling good otherwise. States has no symptoms. EMS states they are unsure why law enforcement called them. ROS otherwise negative. 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, as a child Pulmonary HTN (CMS-HCC) severe, shown on echo 02/09/22 Rash Seizure (CMS-HCC) Shortness of breath Tricuspid regurgitation severe, shown on echo 02/09/22 Past Surgical History: Past Surgical History: Procedure Laterality Date ANKLE SURGERY Left EXTRACTION CATARACT INTRAOCULAR LENS Left 07/13/2023 Performed by Jessica Huggins MD at [facility] EXTRACTION CATARACT INTRAOCULAR LENS Right 06/29/2023 Performed by Jessica Huggins MD at [facility] FRACTURE SURGERY Left forearm TONSILLECTOMY WRIST SURGERY Left Family History: Family History Problem Relation Age of Onset Diabetes Mother Heart disease Father Social History: Social History Socioeconomic History Marital status: Tobacco Use Smoking status: Never Smokeless tobacco: Current Types: Chew Vaping Use Vaping status: Never Used Substance and Sexual Activity Alcohol use: Yes Alcohol/week: 14.0 standard drinks of alcohol Types: 14 Cans of beer per week Comment: beer daily, 2-4 cans per day and some occassional shots of whiskey Drug use: No Sexual activity: Not Currently Other Topics Concern Caffeine Use No Social Drivers of Health Food Insecurity: No Food Insecurity (03/22/2025) Hunger Screening Food Insecurity - Worry: Never True Food Insecurity - Inability: Never True Review of Systems: Review of Systems Physical Exam: ED Triage Vitals Temp Pulse Resp BP SpO2 -- -- -- -- -- Temp src Heart Rate Source Patient Position BP Location FiO2 (%) -- -- -- -- -- Vitals: 03/22/25 1915 03/22/25 1930 03/22/25194403/22/251999 BP: 110/72 111/67 Temp: TempSrc: Pulse: 76 81 Resp: (!) 27 25 SpO2: 91% 93% 94% 99% MAP (mmHg): 85 79 Height: Weight: Physical Exam Vitals and nursing note reviewed. Constitutional: General: He is not in acute distress. Appearance: Normal appearance. He is normal weight. He is not ill-appearing, toxic-appearing or diaphoretic. Comments: Intoxication HENT: Head: Normocephalic and atraumatic. Right Ear: External ear normal. Left Ear: External ear normal. Nose: Nose normal. Mouth/Throat: Mouth: Mucous membranes are moist. Eyes: General: Right eye: No discharge. Left eye: No discharge. Extraocular Movements: Extraocular movements intact. Conjunctiva/sclera: Conjunctivae normal. Pupils: Pupils are equal, round, and reactive to light. Cardiovascular: Rate and Rhythm: Normal rate. Rhythm irregular. Pulses: Normal pulses. Heart sounds: Normal heart sounds. Pulmonary: Effort: Pulmonary effort is normal. Breath sounds: Normal breath sounds. Abdominal: General: Abdomen is flat. There is no distension. Palpations: Abdomen is soft. Tenderness: There is no abdominal tenderness. Musculoskeletal: General: Normal range of motion. Cervical back: Normal range of motion and neck supple. Skin: General: Skin is warm and dry. Capillary Refill: Capillary refill takes less than 2 seconds. Neurological: General: No focal deficit present. Mental Status: He is alert and oriented to person, place, and time. GCS: GCS eye subscore is 4. GCS verbal subscore is 5. GCS motor subscore is 6. Cranial Nerves: No cranial nerve deficit. Sensory: No sensory deficit. Motor: No weakness. Comments: Slight slurring of speech Psychiatric: Mood and Affect: Mood normal. Behavior: Behavior normal. Procedure: Procedures Re-evaluation: Re-Evaluation Medical Decision Making No evidence or history of fall/head injury He is neuro intact Slight slurring of speech consistent with alcohol intoxication Neuro imaging not indicated Elevated ethanol level almost 3 times the legal limit CBC pending at time of disposition This lab for us today is a send out given a machine breakdown at our lab Patient has been reassessed multiple times He is currently asymptomatic, neuro intact, and is stable vitals He has pulled out his IV and continues to leave the room and wander around requesting discharge Multiple phone calls made He did come here at the behest of the police department but they have refused to offer help gettinghim home We are finally able to get in touch with a family member who will come and provide a safe ride home Return precautions given Amount and/or Complexity of Data Reviewed Independent Historian: EMS External Data Reviewed: notes. Details: Patient saw Colorectal surgery February 27 and underwent sigmoidoscopy Has a known rectal mass Labs: ordered. Decision-making details documented in ED Course. Details: Labs notable for: ethanol 0.225 ECG/medicine tests: ordered and independent interpretation performed. Decision- making details documented in ED Course. Details: AFib ED Course: ED Course as of 03/22/252051Mar 22, 20252004 EKG at 7:36 p.m. shows rate controlled AFib. Rate of 61. No acute infarction. PVCs present. EKG present on prior EKG from July 16, 2024. [MW] 2026 Ethanol(!): 0.225 [MW] ED Course User Index [MW] Elvin Del Cid DO Clinical Impressions as of 03/22/252051 Alcoholic intoxication without complication . ED Disposition ED Disposition Discharge Date/Time WedMar 22, 2025 8:52 PM Comment At the time of discharge, the plan has been discussed with the patient regarding the diagnosis and prognosis. All questions have been answered. Verbal discharge instructions were discussed with the patient. The patient has been advised to follow up w ith their Primary Care Provider within 1 week. The patient was also instructed to return to the ED if their symptoms change, worsen, new symptoms arise or if they have any additional concerns. . Please note that portions of this note were completed with a voice recognition program. Efforts were made to edit the dictations but occasionally words are mis-transcribed. Tatum Panuto 03/22/251854 Tatum Panuto 03/22/251854 Tatum Panuto 03/22/251855 Tatum Panuto 03/22/251856 Elvin Del Cid DO 03/22/252003 Tatum Panutamanda 03/22/252045 Elvin Del Cid DO 03/22/252053 documented in this encounter Plan of Treatment Not on file documented as of this encounter Goals Goal Patient Goal Type Associated Problems Recent Progress Patient-Stated? Author Home General Yes Alice Michael LSW Note: Evaluation of progress towards goal: Safe transition from hospital to home. documented as of this encounter Procedures Procedure Name Priority Date/Time Associated Diagnosis Comments ECG 12-LEAD STAT 03/22/2025 7:36 PM EDT EXTRA TUBES BLUE TOP Routine 03/22/2025 7:32 PM EDT EXTRA TUBES Routine 03/22/2025 7:32 PM EDT CBC WITH AUTO DIFFERENTIAL STAT 03/22/2025 7:32 PM EDT ETHANOL STAT 03/22/2025 7:32 PM EDT BASIC METABOLIC PANEL STAT 03/22/2025 7:32 PM EDT documented in this encounter Results * ECG 12 lead (03/22/2025 7:36 PM EDT) 03/22/2025 7:36 PM EDT Narrative [facility]AC[facility]AST[facility] - 03/22/2025 8:54 PM EDT us Elvin Del Cid DO ECG ORDERABLES Final Result [facility]UE * Light Blue Top (03/22/2025 7:32 PM EDT) Extra Tube Auto Resulted 03/22/2025 9:01 PM EDT [facility] Blood Venous blood / Unknown 03/22/2025 7:32 PM EDT 03/22/2025 7:53 PM EDT us Elvin Del Cid DO LAB BLOOD ORDERABLES Final Re sult Performing Organization Address City/[facility]/ZIP Co de Phone Number [facility] [address] [place] [address], * (ABNORMAL) CBC auto differential (03/22/2025 7:32 PM EDT) [facility] WBC 5.1 4 - 11 x10E9/L 03/22/2025 10:58 PM EDT [facility] RBC Count 3.82(L) 4.1 - 5.7 X10E12/L 03/22/2025 10:58 PM EDT [facility] Hemoglobin 12.2(L) 13 - 17 g/dL 03/22/2025 10:58 PM EDT [facility] Hematocrit 36.1(L) 39 - 50 % 03/22/2025 10:58 PM EDT [facility] MCV 95 80 - 100 fL 03/22/2025 10:58 PM EDT [facility] MCH 32.0 27 - 34 pg 03/22/2025 10:[facility] MCHC 33.9 32 - 36 g/dL 03/22/2025 10:58 PM [facility] RDW 14.0 11.5 - 15 % 03/22/2025 10:58 PM [facility] Platelet Count 176 150 - 450 X10E9/L 03/22/2025 10:58 PM [facility] MPV 9.3 7 - 12 fL 03/22/2025 10:58 PM [facility] Neutrophils % 62.1 % 03/22/2025 10:58 PM [facility] Lymphocytes % 24.8 % 03/22/2025 10:58 PM [facility] Monocytes % 9.1 % 03/22/2025 10:58 PM [facility] Eosinophils % 2.8 % 03/22/2025 10:58 PM [facility] Basophils % 1.2 % 03/22/2025 10:58 PM [facility] Neutrophils Absolute (A) 3.2 1.5 - 6.6 10*3/uL 03/22/2025 10:58 PM [facility] Lymphocytes Absolute 1.3 1.0 - 3.5 10*3/uL 03/22/2025 10:58 PM [facility] Monocytes Absolute 0.5 0.0 - 0.9 10*3/uL 03/22/2025 10:58 PM [facility] Eosinophils Absolute 0.1 0.0 - 0.4 10*3/uL 03/22/2025 10:58 PM [facility] Basophils Absolute 0.1 0.0 - 0.2 10*3/uL 03/22/2025 10:58 PM [facility] Differential Type AUTOMATED DIFFERENTIAL 03/22/2025 10:58 PM [facility] Blood Venous blood / Unknown 03/22/2025 7:32 PM EDT 03/22/2025 7:52 PM EDT us Elvin Del Cid DO LAB BLOOD ORDERABLES Final Re sult [facility] [address] [place] [address], [place] * (ABNORMAL) Basic Metabolic Panel (03/22/2025 7:32 PM EDT) SODIUM 134 134 - 146 mmol/L 03/22/2025 8:07 PM EDT [facility] POTASSIUM 4.0 3.5 - 5.0 mmol/L 03/22/2025 8:07 PM EDT [facility] CHLORIDE 103 98 - 109 mmol/L 03/22/2025 8:07 PM EDT [facility] CARBON DIOXIDE 21(L) 22 - 32 mmol/L 03/22/2025 8:07 PM EDT [facility] ANION GAP 10 5 - 15 mmol/L 03/22/2025 8:07 PM EDT [facility] BLOOD UREA NITROGEN 10 5 - 27 mg/dL 03/22/2025 8:07 PM EDT [facility] CREATININE 0.89 0.70 - 1.20 mg/dL 03/22/2025 8:07 PM EDT [facility] Comment:METHOD TRACEABLE TO IDMS STANDARD GLUCOSE 99 65 - 99 mg/dL 03/22/2025 8:07 PM EDT [facility] CALCIUM 8.7 8.5 - 10.5 mg/dL 03/22/2025 8:07 PM EDT [facility] EGFR Non-Race Dependent 89 >=60 ml/min/1.7 3sq.m 03/22/2025 8:07 PM EDT [facility] Comment: eGFR not reported due to non-numeric value for Creatinine. Reported eGFR is based on the CKD-EPI 2020 equation that does not use a race coefficient. Blood Venous blood / Unknown 03/22/2025 7:32 PM EDT 03/22/2025 7:52 PM EDT us Elvin Del Cid DO LAB BLOOD ORDERABLES Final Re sult [facility] [address] [place] [address], [place] * (ABNORMAL) Ethanol (03/22/2025 7:32 PM EDT) ETHANOL 0.225(H) <=0.080 g/dL 03/22/2025 8:18 PM EDT [facility] Comment: This report is intended for use in clinical monitoring or management of patients. Blood Venous blood / Unknown 03/22/2025 7:32 PM EDT 03/22/2025 7:52 PM EDT us Elvin Del Cid DO LAB BLOOD ORDERABLES Final Re sult [facility] [address] [place] [address], documented in this encounter Visit Diagnoses Diagnosis Alcoholic intoxication without complication- Primary documented in this encounter Administered Medications Inactive Administered Medications - up to 3 most recent administrations Medication Order MAR Action Action Date Dose Rate Site sodium chloride 0.9 % flush 3 mL 3 mL, intravenous, As needed, line care, before and after each intermittent use, Starting on Terra 03/22/25 at 1850 sodium chloride 0.9 % infusion 125 mL/hr, intravenous, Continuous, Starting on Terra 03/22/25 at 1855, For 1 day New Bag 03/22/2025 7:31 PM EDT 125 mL/hr 125 mL/hr documented in this encounter Active and Recently Administered Medications Times are shown in EDT. Continuous Medication Order 03/20/2025 03/21/2025 03/22/2025 sodium chloride 0.9 % infusion 125 mL/hr, intravenous, Continuous, Starting on Terra 03/22/25 at 1855, For 1 day 1930 (New Bag - Prov ider: Nadia Yates RN)2024 (Stop Bag - Provider: Tabitha Sams RN) PRN Medication Order 03/20/2025 03/21/2025 03/22/2025 sodium chloride 0.9 % flush 3 mL 3 mL, intravenous, As needed, line care, before and after each intermittent use, Starting on Terra 03/22/25 at 1850 documented in this encounter Additional Health Concerns Assessment Noted Time PHQ-9 Depression Total Score: 2 01/08/20 22 8:55 AM EDT A Body Mass Index follow-up plan has been documented for the patient 01/07/2022 12:32 PM EDT documented as of this encounter Care Teams Brim Cutter Relationship Specialty Start Date End Date [facility], [facility] [address] [place], [place] PCP - General Family Medicine 03/22/25 documented as of this encounter
--- OUTSIDE RECORDS SUMMARY | 2025-03-26 14:25 | XMS_ITS | Encounter Summary ---
Author Organization [facility] Address [address] [place] [address] Care Team Providers Care Outplacement Consultant Name Role [facility] Provide r Encounter Details Date Type Department Care Team (Late st Contact Info) Description 07/13/2024 Clinisync Result Encounter [facility] Department Unsolicited Ning Wakefield DO Social History Tobacco Use Types Packs/Day Years Used Date Smoking Tobacco: Never Assessed Sex and Gender Information Value Date Recorded Sex Assigned at Not on file Legal Sex Male 12:55 PM EDT Gender Identity Not on file Sexual Orientation Not on file documented as of this encounter Plan of Treatment Not on file documented as of this encounter Procedures Procedure Name Priority Date/Time Associated Diagnosis Comments CT CHEST W CONTRAST 07/13/2024 7 :56 AM EDT documented in this encounter Results * CT CHEST W CONTRAST (07/13/2024 7:56 AM EDT) Anatomical Region Laterality Modality Other 07/13/2024 7:56 AM EDT Narrative 07/13/2024 7:59 AM EDT The [address] [address] [address] Scan Report Signed Patient: ROLDAN COTE MR#: [id number] : 1950 Acct:[id number] Age/Sex: 74 / M ADM Date: 07/11/24 Loc: LAB Attending Dr: Ning Wakefield D.O. Ordering Physician: Ning Wakefield D.O. Date of Service: 07/11/24 Procedure(s): CT chest w con Accession Number(s): [id number] cc: [place] [address] [address] [id number] Patient Name: ROLDAN COTE MRN: [id number] date: 1950 Sex: M Assigned Patient Location: LAB Current Patient Location: [facility] Accession/Order Number: [id number] Exam Date: 2024 11:17 Report Date: 07/13/2024 07:56 At the request of: NING WAKEFIELD Procedure: CT chest w con EXAMINATION: CT chest w con HISTORY: Adenocarcinoma Of Rectum COMPARISON: No relevant comparison available. TECHNIQUE: Multi-planar CT images were created with IV contrast. Axial, Coronal, and Sagittal images. Dose reduction techniques were achieved by using automated exposure control and/or adjustment of mA and/or kV according to patient size and/or use of iterative reconstruction technique. FINDINGS: LUNGS: Calcified tracheobronchial tree. Scattered patchy groundglass infiltrates most significant in the right upper lobe. Subcentimeter pulmonary nodules noted throughout both lungs the largest 6.4 mm in the left lower lobe axial image #53 PLEURA: No mass, effusion, or pneumothorax. VASCULATURE: Normal postcontrast opacification of the central pulmonary arterial tree with no filling defect to suggest a pulmonary embolus GALI: Right hilar lymphadenopathy MEDIASTINUM: No mass or adenopathy. CARDIAC: Prominent heart size. No pericardial effusion Coronary arteries: Mild atherosclerosis AORTA: No aneurysm or dissection. CHEST WALL: No mass or axillary adenopathy. BONES: No bone lesion or fracture. LIMITED ABDOMEN: No suspicious findings. Limited images of the upper abdomen. OTHER: Negative. CT/CT chest w con IMPRESSION: Scattered patchy parenchymal infiltrates with right hilar lymphadenopathy. Consider pneumonia this does not have the typical appearance of metastatic disease Scattered subcentimeter pulmonary nodules measuring up to 6.4 mm, nonspecific Electronically authenticated by: GRAHAM LINN Date: 07/13/2024 07:56 Dictated By: Graham Linn M.D. Signed By: 07/13/24 0759 DD/ 0756 TD/TT: Poolroom Table Attendant: Procedure Note Radiology, Radiologist, MD - 10/17/2024 [place] [address] CT Scan Report Signed Patient: ROLDAN COTE DMR#: [id number] : 1950cct:[id number] Age/Sex: 74 / MADM Date: 07/11/24 Loc: LAB Attending Dr: Ning Wakefield D.O. Ordering Physician: Ning Wakefield D.O. Date of Service: 07/11/24 Procedure(s): CT chest w con Accession Number(s): [id number] cc: [facility] The [place] [id number] Patient Name: ROLDAN COTE MRN: [id number] date: 1950 Sex: M Assigned Patient Location: LAB Current Patient Location: [facility] Accession/Order Number: [id number] Exam Date: 2024 11:17 Report Date: 07/13/2024 07:56 At the request of: NING WAKEFIELD Procedure: CT chest w con EXAMINATION: CT chest w con HISTORY: Adenocarcinoma Of Rectum COMPARISON: No relevant comparison available. TECHNIQUE: Multi-planar CT images were created with IV contrast. Axial, Coronal, and Sagittal images. Dose reduction techniques were achieved byusing automated exposure control and/or adjustment of mA and/or kV according to patient size and/or use of iterative reconstruction technique. FINDINGS: LUNGS: Calcified tracheobronchial tree. Scattered patchy groundglass infiltrates most significant in the right upper lobe. Subcentimeterpulmonary nodules noted throughout both lungs the largest 6.4 mm in the left lowerlobe axial image #53 PLEURA: No mass, effusion, or pneumothorax. VASCULATURE: Normal postcontrast opacification of the central pulmonary arterial tree with no filling defect to suggest a pulmonary embolus GALI: Right hilar lymphadenopathy MEDIASTINUM: No mass or adenopathy. CARDIAC: Prominent heart size. No pericardial effusion Coronary arteries: Mild atherosclerosis AORTA: No aneurysm or dissection. CHEST WALL: No mass or axillary adenopathy. BONES: No bone lesion or fracture. LIMITED ABDOMEN: No suspicious findings. Limited images of the upperabdomen. OTHER: Negative. CT/CT chest w con IMPRESSION: Scattered patchy parenchymal infiltrates with right hilar lymphadenopathy. Consider pneumonia this does not have the typical appearance of metastatic disease Scattered subcentimeter pulmonary nodules measuring up to 6.4 mm,nonspecific Electronically authenticated by: GRAHAM LINN Date: 07/13/2024 07:56 Dictated By: Graham Linn M.D. Signed By:07/13/24 0759 DD/ 0756 TD/TT: Poolroom Table Attendant: Ning Wakefield DO [facility] Final Result documented in this encounter Visit Diagnoses Not on filedocumented in this encounter Care Teams Outplacement Consultant Relationship Specialty Start Date End Date Shabnam Villarreal MD [address] [place] [address] PCP - General Behavioral Health 06/05/24 documented as of this encounter
--- OUTSIDE RECORDS SUMMARY | 2025-03-26 14:25 | XMS_ITS | Clinical Summary ---
Author Organization [facility] Address [address] [place], [place] [address] Care Team Providers Care Plow Shaker Name Role Phone Raffi Byrd MD Primary Care Provider + Allergies No known active allergies Medications folic acid 0.8 mg cap Take by mouth. Active thiamine (VITAMIN B1) 100 mg tablet Take 100 mg by mouth once daily. Active aspirin, enteric coated (ASPIRIN, ENTERIC COATED) 81 mg EC tablet Take 81 mg by mouth. Active atorvastatin (LIPITOR) 20 mg tablet Take 20 mg by mouth once daily. 03/04/[address] (PROTONIX) 40 mg tablet Take 40 mg by mouth once daily. 03/04/2020 Active DILT-XR 120 mg 24 hr capsule Take 120 mg by mouth once daily. 05/11/2020 Active naltrexone HCl (NALTREXONE ORAL) Take 50 mg by mouth once daily. Active vitamin B complex (B COMPLEX ORAL) Take by mouth once daily. Active sertraline (ZOLOFT) 50 mg tablet Take 0.5 tablets by mouth once daily. 15 tablet 07/22/2020 Active Losartan-hydroC HLOROthiazide 100-12.5 mg per tablet Take 1 tablet by mouth once daily. 06/13/2021 Active multivitamin/ir on/folic acid (CENTRUM ORAL) Take by mouth. Active Active Problems No known active problems Social History Tobacco Use Types Packs/Day Years Used Date Smoking Tobacco: Never Smokeless Tobacco: Never PHQ-2 Answer Date Recorded PHQ-2 score 1 06/16/2021 Area Deprivation Index Answer Date Logan rded National Score (1-100), lower number is lower ri sk Not on file 09/03/2020 State Score (1-10), lower number is lower risk N ot on file 09/03/2020 Data from: https://www.neighborhoodatlas.medicine.[facility].edu/. Last address used for calculation Not on file 09/03/2020 Sex and Gender Information Value Date Recorded Sex Assigned at Not on file Legal Sex Male 10:16 AM EST Gender Identity Not on file Sexual Orientation Not on file Last Filed Vital Signs Vital Sign Reading Time Taken Comments Blood Pressure 134/85 06/16/2021 4:07 PM EDT Pulse 113 06/16/2021 4:07 PM EDT Temperature - - Respiratory Rate 20 07/22/2020 11:39 AM EDT Oxygen Saturation 99% 06/16/2021 4:07 PM EDT Inhaled Oxygen Concentration - - Weight 83.6 kg (184 lb 6.4 oz) 06/16/2021 4:07 P M EDT Height 177.8 cm (5' 10 ) 06/16/2021 4:07 PM EDT Body Mass Index 26.46 06/16/2021 4:07 PM EDT Plan of Treatment Health Maintenance Due Date Last Done Comments Anxiety Screening 1966 Depression Screening 1966 Hepatitis C Screening 1966 Pneumococcal Vaccine: 50+ (1 of 1 - PCV) 1998 Shingrix Vaccine (1 of 2) 1998 RSV Vaccine (1 - 1-dose 75+ series) 2023 Covid-19 Vaccine (3 - 2023-2 5 season) 2024 01/03/2021, 12/13/2020 Advance Directive Discussion 09/27/2024 Influenza Vaccine (Season Ended) 2025 07/08/20 17 Diabetes Screening 07/25/2027 07/25/2024, 1 10/02/2022, 06/02/2023, Additional history exists DTaP,Tdap,Td Vaccine (4 - Td or Tdap) 06/04/2030 06/04/2020, 04/16/2018, 06/07/2017, Additional history exists Insurance [employer] Care Teams Plow Shaker Relationship Specialty Start Date End Date Raffi Byrd MD PCP - General Internal Medicine 06/20/21
--- OUTSIDE RECORDS SUMMARY | 2025-03-26 14:25 | XMS_ITS | Encounter Summary ---
Author Organization [facility] Address [address] [place] [address] Care Team Providers Care Focusing Machine Operator Name Role Phone [facility] Care Provide r Encounter Details Date Type Department Care Team (Late st Contact Info) Description 07/18/2024 Clinisync Result Encounter [facility] External Department Unsolicited [...] Procedure Name Priority Date/Time Associated Diagnosis Comments MR PELVIS W AND WO CONTRAST 07/18/2024 3:01 PM EDT documented in this encounter Results * MR pelvis w and wo contrast (07/18/2024 3:01 PM EDT) Anatomical Region Laterality Modality Body, Pelvis Magnetic Resonan ce 07/18/2024 3:01 PM EDT Narrative 07/18/2024 3:03 PM EDT The [address] [address] Magnetic Resonance Report Signed Patient: ROLDAN COTE MR#: [id number] : 1950 Acct:[id number] Age/Sex: 74 / M ADM Date: 07/14/24 Loc: MRI Attending Dr: Ning Wakefield D.O. Ordering Physician: Ning Wakefield D.O. Date of Service: 07/14/24 Procedure(s): MR pelvis wo/w con Accession Number(s): [id number] cc: Ning Wakefield D.O.; [address] [address] Patient Name: ROLDAN COTE MRN: [id number] date: 1950 Sex: M Assigned Patient Location: MRI Current Patient Location: MRI Accession/Order Number: [id number] Exam Date: 07/14/2024 08:00 Report Date: 07/18/2024 15:01 At the request of: NING WAKEFIELD Procedure: MR pelvis wo/w con EXAM: MR pelvis wo/w con 07/14/2024 COMPARISON STUDY: CT of the abdomen and pelvis with contrast 2024. TECHNIQUE: Coronal T1 and fat-saturated STIR, sagittal T2 as well as axial T1, fat saturated STIR and fat-saturated T1-weighted images were obtained. Fat-saturated coronal and axial T1 weighted images were also obtained following administration of intravenous gadolinium contrast. HISTORY: Adenocarcinoma Of Rectum C20 FINDINGS: There is partial visualization of lumbar dextrocurvature with multilevel degenerative changes of the spine noted. Endorectal contrast was not utilized. Circumferential mid rectal mass is identified again. The inferior margin is noted approximately 8.3 cm above the anal verge. On the sagittal T2-weighted images the lesion has length estimated at 4.7 cm. On the axial images there is slight linear stranding of the perirectal fat seen posterior laterally toward the right. On this image the rectal mass measures at least 3.7 x 3.2 cm. Single wall thickness posteriorly is 2.0 cm. Transmural involvement is identified. There are a few punctate indeterminate perirectal nodules ranging in size between 2 and 4 mm. The presacral nodules toward the right for example measures 4 mm on image were 8 of series 8. Incidental note of sigmoid diverticular disease. Urinary bladder, prostate and atrophic appearing seminal vesicles demonstrate no acute abnormality. No significantly enlarged intrapelvic or inguinal type nodes noted. The small evgfg-ub-wtxg axial T1-weighted images obtained with and without fat saturation are nondiagnostic marred by signal degradation type artifact. On the large dlujh-re-flfj postcontrast images the lesion demonstrates heterogeneous hyperenhancement, seen for example on axial postcontrast image #11. MR/MR pelvis wo/w con IMPRESSION: 1. Dedicated rectal mass protocol was not utilized. Endorectal contrast was also not visualized. 2. Circumferential transmural mid rectal mass with length estimated at 4.7 cm is located approximately 8.3 cm above the anal verge. This has the appearance of primary rectal carcinoma. There are a few tiny indeterminate perirectal nodules ranging size between 2 and 4 mm. Estimated T stage T3N1. 3. Sigmoid diverticulosis. Electronically authenticated by: JACKIE NAPIER Date: 07/18/2024 15:01 Dictated By: Martin Ivey M.D. Signed By: 07/18/24 1503 DD/ 1501 TD/TT: Canteen Operator: Procedure Note Radiology, Radiologist, MD - 07/18/2024 [place] [address] Magnetic Resonance Report Signed Patient: ROLDAN COTE DMR#: [id number] : 1950cct:[id number] Age/Sex: 74 / MADM Date: 07/14/24 Loc: MRI Attending Dr: Ning Wakefield D.O. Ordering Physician: Ning Wakefield D.O. Date of Service: 07/14/24 Procedure(s): MR pelvis wo/w con Accession Number(s): [id number] cc: Ning Wakefield D.O.; [facility] The [place] [id number] Patient Name: ROLDAN COTE MRN: [id number] date: 1950 Sex: M Assigned Patient Location: MRI Current Patient Location: MRI Accession/Order Number: [id number] Exam Date: 07/14/2024 08:00 Report Date: 07/18/2024 15:01 At the request of: NING WAKEFIELD Procedure: MR pelvis wo/w con EXAM: MR pelvis wo/w con 07/14/2024 COMPARISON STUDY: CT of the abdomen and pelvis with contrast 2024. TECHNIQUE: Coronal T1 and fat-saturated STIR, sagittal T2 as well as axialT1, fat saturated STIR and fat-saturated T1-weighted images were obtained. Fat-saturated coronal and axial T1 weighted images were also obtained following administration of intravenous gadolinium contrast. HISTORY: Adenocarcinoma Of Rectum C20 FINDINGS: There is partial visualization of lumbar dextrocurvature with multilevel degenerative changes of the spine noted. Endorectal contrastwas not utilized. Circumferential mid rectal mass is identified again. Theinferior margin is noted approximately 8.3 cm above the anal verge. On the sagittal T2-weighted images the lesion has length estimated at 4.7 cm. On the axial images there is slight linear stranding of the perirectal fat seen posterior laterally toward the right. On this image the rectal massmeasures at least 3.7 x 3.2 cm. Single wall thickness posteriorly is 2.0 cm.Transmural involvement is identified. There are a few punctate indeterminateperirectal nodules ranging in size between 2 and 4 mm. The presacral nodules towardthe right for example measures 4 mm on image were 8 of series 8. Incidental note of sigmoid diverticular disease. Urinary bladder, prostate and atrophic appearing seminal vesiclesdemonstrate no acute abnormality. No significantly enlarged intrapelvic or inguinaltype nodes noted. The small ffugl-ym-saqo axial T1-weighted images obtainedwith and without fat saturation are nondiagnostic marred by signal degradation type artifact. On the large qiord-hy-uggg postcontrast images the lesion demonstrates heterogeneous hyperenhancement, seen for example on axial postcontrastimage #11. MR/MR pelvis wo/w con IMPRESSION: 1. Dedicated rectal mass protocol was not utilized. Endorectal contrastwas also not visualized. 2. Circumferential transmural mid rectal mass with length estimated at 4.7cm is located approximately 8.3 cm above the anal verge. This has theappearance of primary rectal carcinoma. There are a few tiny indeterminate perirectal nodules ranging size between 2 and 4 mm. Estimated T stage T3N1. 3. Sigmoid diverticulosis. Electronically authenticated by: JACKIE NAPIER Date: 07/18/2024 15:01 Dictated By: Martin Ivey M.D. Signed By:07/18/24 1503 DD/ 1501 TD/TT: Canteen Operator: us Ning DOBBS MRI PROCEDURES Final Result documented in this encounter Visit Diagnoses Not on filedocumented in this encounter Care Teams Focusing Machine Operator Relationship Specialty Start Date End Date Shabnam Vlilarreal MD [address] [place] [address] PCP - General Behavioral Health 06/05/24 documented as of this encounter
--- OUTSIDE RECORDS SUMMARY | 2025-03-26 14:25 | XMS_ITS | Encounter Summary ---
Author Organization [facility] Address [address] [place] [address] Care Team Providers Care Employment Interviewer Name Role Phone Shabnam Villarreal MD Primary Care Provide r Encounter Details Date Type Department Care Team (Late st Contact Info) Description 08/08/2024 Abstract [facility] [address] [place] [address] Armen Wakefield DO Social History Tobacco Use Types Packs/Day Years Used Date Smoking Tobacco: Never Assessed Sex and Gender Information Value Date Recorded Sex Assigned at Not on file Legal Sex Male 12:55 PM EDT Gender Identity Not on file Sexual Orientation Not on file documented as of this encounter Plan of Treatment Not on file documented as of this encounter Visit Diagnoses Not on filedocumented in this encounter Care Teams Employment Interviewer Relationship Specialty Start Date End Date Shabnam Villarreal MD [address] [place] [address] PCP - General Behavioral Health 06/05/24 documented as of this encounter
--- OUTSIDE RECORDS SUMMARY | 2025-03-26 14:25 | XMS_ITS | Clinical Summary ---
Author Organization [facility] Address [address] [place] [address] Care Team Providers Care Cyber Workforce Developer And Manager Name Role Phone [facility] Primary Care Provide r Allergies No known active allergies Medications atorvastatin (Lipitor) 20 MG tablet Take 40 mg by mouth Daily Active docusate sodium (Colace) 100 MG capsule Take 100 mg by mouth in the morning and 100 mg before bedtime. 05/15/2024 Active Eliquis 5 MG tablet Take 5 mg by mouth in the morning and 5 mg before bedtime. Active Cardizem CD 120 MG 24 hr capsule Take 120 mg by mouth Daily 06/29/2023 Active losartan-hydroC HLOROthiazide (Hyzaar) 100-12.5 MG tablet Take 1 tablet by mouth Daily Active Social History Tobacco Use Types Packs/Day Years Used Date Smoking Tobacco: Never Assessed Sex and Gender Information Value Date Recorded Sex Assigned at Not on file Legal Sex Male 12:55 PM EDT Gender Identity Not on file Sexual Orientation Not on file Last Filed Vital Signs Vital Sign Reading Time Taken Comments Blood Pressure 138/84 06/28/2024 8:14 AM EDT Pulse 85 06/28/2024 8:14 AM EDT Temperature - - Respiratory Rate 18 06/28/2024 8:14 AM EDT Oxygen Saturation 98% 06/28/2024 8:14 AM EDT Inhaled Oxygen Concentration - - Weight 87.1 kg (192 lb) 06/28/2024 8:14 AM EDT Height 177.8 cm (5' 10 ) 06/28/2024 8:14 AM EDT Body Mass Index 27.55 06/28/2024 8:14 AM EDT Plan of Treatment Not on file Insurance [employer] Care Teams Cyber Workforce Developer And Manager Relationship Specialty Start Date End Date Shabnam Villarreal MD [address] [place] [address] PCP - General Behavioral Health 06/05/24
--- OUTSIDE RECORDS SUMMARY | 2025-03-26 14:25 | XMS_ITS | Clinical Summary ---
Author Organization [facility] Address [address] [place] [address] Care Team Providers Care Addictions Therapist Name Role Phone Kristin Shaikh MD Primary Care Provider Cristobal lable Allergies No known active allergies Medications [facility] ACETAMINOPHEN 325 MG tablet TAKE 2 TABLETS BY MOUTH EVERY 6 HOURS NEEDED FOR PAIN 0 7 Active MAGNESIUM OXIDE PO Take 1 tablet by mouth daily 400mg Active amiodarone (PACERONE) 100 MG tablet Take 100 mg by mouth daily Active propranolol (INDERAL) 10 MG tablet Take 10 mg by mouth 3 times daily Active Active Problems Problem Noted Date Diagnosed Date History of vertebral fracture 08/05/2017 Chronic atrial fibrillation 08/05/2017 Anxiety 08/05/2017 Alcoholism 08/05/2017 Immunizations Immunization Administration Dates Next Due TDaP, ADACEL (age 10y-64y), BOOSTRIX (age 10y+), IM, 0.5mL 04/16/2018 Family History Medical History Relation Name Comments COPD Brother Other Brother Vascular Diseas e COPD Father Diabetes Father Heart Failure Father Hypertension Father Stroke Father Diabetes Mother Hypertension Mother Stroke Mother No Known Problems Sister Relation Name Status Comments Brother Alive Father Mother Sister Alive Social History Tobacco Use Types Packs/Day Years Used Date Smoking Tobacco: Never Smokeless Tobacco: Current Tobacco Cessation:Counseling Given: Yes Alcohol Use Standard Drinks/Week Comments Yes 0 (1 standard drink = 0.6 oz pur e alcohol) socially PHQ-2 Answer Date Recorded PHQ-2 Score 0 01/31/2019 Sex and Gender Information Value Date Recorded Sex Assigned at Not on file Legal Sex Male 6:42 PM EST Gender Identity Not on file Sexual Orientation Not on file Last Filed Vital Signs Vital Sign Reading Time Taken Comments Blood Pressure 142/86 04/25/2019 9:35 PM EDT Pulse 54 04/25/2019 9:31 PM EDT Temperature 36.8 C (98.3 F) 04/25/2019 9:31 PM EDT Respiratory Rate 12 04/25/2019 9:31 PM EDT Oxygen Saturation 97% 04/25/2019 9:31 PM EDT Inhaled Oxygen Concentration - - Weight 84.6 kg (186 lb 9.6 oz) 01/31/2019 4:38 P M EDT Height 177.8 cm (5' 10 ) 01/31/2019 4:38 PM EDT Body Mass Index 26.77 01/31/2019 4:38 PM EDT Plan of Treatment Not on file Insurance [employer] Care Teams Addictions Therapist Relationship Specialty Start Date End Date Kristin Shaikh MD PCP - General Family Medicine 04/25/18
--- OUTSIDE RECORDS SUMMARY | 2025-03-26 14:25 | XMS_ITS | Encounter Summary ---
Author Organization [facility] Address [address] [place] [address] Care Team Providers Care Trouble Shooter Name Role Phone [facility] Primary Care Provide r Encounter Details Date Type Department Care Team (Late st Contact Info) Description 2024 Clinisync Result Encounter [facility] External Department Unsolicited [...] Name Priority Date/Time Associated Diagnosis Comments CT ABDOMEN PELVIS W CON 2024 12:22 PM EDT documented in this encounter Results * CT ABDOMEN PELVIS W CON (2024 12:22 PM EDT) Anatomical Region Laterality Modality Other 2024 12:2 2 PM EDT Narrative 2024 12:25 PM EDT The [address] [address] [address] Scan Report Signed Patient: ROLDAN COTE MR#: [id number] : 1950 Acct:[id number] Age/Sex: 74 / M ADM Date: 07/11/24 Loc: LAB Attending Dr: Ning Wakefield D.O. Ordering Physician: Ning Wakefield D.O. Date of Service: 10/15/24 Procedure(s): CT abdomen pelvis w con Accession Number(s): [id number] cc: [place] [address] [place] [id number] Patient Name: ROLDAN COTE MRN: [id number] date: 1950 Sex: M Assigned Patient Location: LAB Current Patient Location: LAB Accession/Order Number: [id number] Exam Date: 2024 11:17 Report Date: 2024 12:22 At the request of: NING WAKEFIELD Procedure: CT abdomen pelvis w con EXAM: CT abdomen pelvis w con HISTORY: Adenocarcinoma Of Rectum COMPARISON: CT abdomen and pelvis 05/15/2024.. TECHNIQUE: Following intravenous administration of 100 cc of Omnipaque 300, axial soft tissue windows of the abdomen and pelvis were performed with coronal and sagittal reformats. CT dose reduction technique was used including Automated Exposure Control. Findings: Stable left lower lobe 0.7 cm nodule. ABDOMEN: The liver, gallbladder, spleen, pancreas, and adrenal glands are unremarkable. No renal stones or collecting system dilatation. Mild nonspecific bilateral perinephric fat stranding. Right renal cortical defects likely relating to prior infarcts or infection. The bilateral ureters are nondilated. Redemonstrated is the rectal masslike opacity measuring approximately 3.6 x 1.9 cm. There are colonic diverticula. Otherwise, the bowel is unremarkable without evidence of wall thickening or obstruction. The appendix is nondilated. The aorta is normal caliber. Mild atherosclerotic disease. No enlarged abdominal lymph node nodes or free abdominal fluid. Pelvis: Unremarkable bladder. The prostate is nonenlarged. No enlarged pelvic lymph nodes or free pelvic fluid. CT/CT abdomen pelvis w con IMPRESSION: 1. Redemonstrated is the probable rectal mass. 2. No evidence of metastases. 3. Other nonemergent findings, as described above. Electronically authenticated by: SAAD ROBERTS Date: 2024 12:22 Dictated By: Saad Roberts M.D. Signed By: 07/11/24 1225 DD/ 1222 TD/TT: Patent Legal Assistant: Procedure Note Radiology, Radiologist, - [address] [place] [address] CT Scan Report Signed Patient: ROLDAN COTE DMR#: [id number] : 1950cct:[id number] Age/Sex: 74 / MADM Date: 07/11/24 Loc: LAB Attending Dr: Ning Wakefield D.O. Ordering Physician: Ning Wakefield D.O. Date of Service: 07/11/24 Procedure(s): CT abdomen pelvis w con Accession Number(s): [id number] cc: [facility] The [place] [id number] Patient Name: ROLDAN COTE MRN: [facility]:[id number] date: 1950 Sex: M Assigned Patient Location: LAB Current Patient Location: LAB Accession/Order Number: [id number] Exam Date: 2024 11:17 Report Date: 2024 12:22 At the request of: NING WAKEFIELD Procedure: CT abdomen pelvis w con EXAM: CT abdomen pelvis w con HISTORY: Adenocarcinoma Of Rectum COMPARISON: CT abdomen and pelvis 05/15/2024.. TECHNIQUE: Following intravenous administration of 100 cc of [id number], axial soft tissue windows of the abdomen and pelvis were performed with coronal and sagittal reformats. CT dose reduction technique was used including Automated Exposure Control. Findings: Stable left lower lobe 0.7 cm nodule. ABDOMEN: The liver, gallbladder, spleen, pancreas, and adrenal glands areunremarkable. No renal stones or collecting system dilatation. Mild nonspecificbilateral perinephric fat stranding. Right renal cortical defects likely relating to prior infarcts or infection. The bilateral ureters are nondilated. Redemonstrated is the rectal masslike opacity measuring approximately 3.6x 1.9 cm. There are colonic diverticula. Otherwise, the bowel is unremarkable without evidence of wall thickening or obstruction. The appendix is nondilated. The aorta is normal caliber. Mild atherosclerotic disease. No enlarged abdominal lymph node nodes or free abdominal fluid. Pelvis: Unremarkable bladder. The prostate is nonenlarged. No enlarged pelvic lymph nodes or free pelvic fluid. CT/CT abdomen pelvis w con IMPRESSION: 1. Redemonstrated is the probable rectal mass. 2. No evidence of metastases. 3. Other nonemergent findings, as described above. Electronically authenticated by: SAAD ROBERTS Date: 2024 12:22 Dictated By: Saad Roberts M.D. Signed By:07/11/24 1225 DD/ 1222 TD/TT: Patent Legal Assistant: Ning Wakefield DO [facility] Final Result documented in this encounter Visit Diagnoses Not on filedocumented in this encounter Care Teams Trouble Shooter Relationship Specialty Start Date End Date Shabnam Villarreal MD [address] [place] [address] PCP - General Behavioral Health 06/05/24 documented as of this encounter
--- OUTSIDE RECORDS SUMMARY | 2025-03-26 14:25 | XMS_ITS | Encounter Summary ---
Author Organization [id number] [address] [place] [address] Care Team Providers Care Commercial Green Building Architect Name Role Phone Services, [facility] Primary Care Provider Reason for Visit * Reason Onset Date Comments Referral to Neuro 01/01/2022 Encounter Details Date Type Department Care Team (Late st Contact Info) Description 01/01/2022 [facility] [address] [place] [address] Manisha Gamez Referral to Neuro Social History Tobacco Use Types Packs/Day Years Used Date Smoking Tobacco: Never Smokeless Tobacco: Current Chew Alcohol Use Standard Drinks/Week Comments Yes 30 (1 standard drink = 0.6 oz pu re alcohol) Childcare Answer Date Recorded Childcare Unknown 03/08/2019 Employment Answer Date Recorded Employment Unknown 03/08/2019 Purpose - Life Answer Date Recorded Purpose and direction in life Unknown Sex and Gender Information Value Date Recorded Sex Assigned at Not on file Legal Sex Male 1:31 PM EST Gender Identity Not on file Sexual Orientation Not on file COVID-19 Exposure Response Date Recorded In the last 10 days, have yo u been in contact with someone who was confirmed or suspected to have Coronavirus/COVID-19? No / Unsure 12/14/2021 2:02 PM EDT documented as of this encounter Miscellaneous Notes * Telephone Encounter - Manisha Gamez - 01/01/2022 8:59 AM EDT Received referral to Neurology. DX: Seizures Referred by: Raffi Gilbert MD Referred to: Dr. Cori Villarreal documented in this encounter Plan of Treatment Not on file documented as of this encounter Goals Goal Patient Goal Type Associated Problems Recent Progress Patient-Stated? Author Home General Yes Alice Michael LSW Note: Evaluation of progress towards goal: Safe transition from hospital to home. documented as of this encounter Visit Diagnoses Not on filedocumented in this encounter Care Teams Commercial Green Building Architect Relationship Specialty Start Date End Date [facility], [facility] [address] [place] [address] PCP - General Family Medicine 03/22/25 documented as of this encounter
--- OUTSIDE RECORDS SUMMARY | 2025-03-26 14:25 | XMS_ITS | Patient Health Record ---
Author Organization [facility] [address] Address [address] [place] [address] Care Team Providers Care Grinder Name Role Phone Hawa MINAYA, Kristin Primary Care Provider Neymar Thomason Unavailable [phone] Results Component Value Reference Range Notes CRP (Not yet reviewed by pro vider) Interpretation: Performing Lab: Notes/Report: [facility] , C Reactive Protein <0.50 <=0.50 mg/dL Performing Lab: see note ML - [facility] LB MAGNESIUM (Not yet reviewed by provider) Interpretation: Performing Lab: Notes/Report: [facility] , Magnesium 2.2 1.8-2.4 mg/dL Performing Lab: see note ML - [facility] LB PROF 14(COMP METB) (Not yet reviewed by provider) Interpretation: Performing Lab: Notes/Report: [facility] , Sodium 140 136-145 mmol/L Potassium 4.4 3.5-5.1 mmol/L Chloride 105 98-107 mmol/L Carbon Dioxide 27.4 21.0-32.0 mmol/L Anion Gap 12.0 Glucose 111 74-106 mg/dL Blood Urea Nitrogen 15.0 7.0-18.0 mg/dL Creatinine 1.09 0.70-1.30 mg/dL Estimated GFR ( Melida >60 >=60 mL/min/1.73m 2 Estimated GFR (Non- Elizabeth >60 >=60 mL/min/1.73m 2 BUN Creatinine Ratio 13.8 Calcium 8.6 8.5-10.1 mg/dL Bilirubin Total 0.5 0.2-1.0 mg/dL Aspartate Amino Transferase 21 15-37 U/L Alanine Aminotransferase 17 16-63 U/L Alkaline Phosphatase 117 46-116 U/L Total Protein 7.3 6.4-8.2 g/dL Albumin Level 3.1 3.4-5.0 g/dL Globulin 4.2 Albumin Globulin Ratio 0.7 Performing Lab: see note ML - [facility] LB CBC AUTO DIFF (Not yet revie wed by provider) Interpretation: Performing Lab: Notes/Report: [facility] , White Blood Count 5.2 4.0-11.0 10 3/uL Red Blood Count 3.96 4.70-6.10 10 6/uL Hemoglobin 10.7 14.0-18.0 g/dL Hematocrit 33.0 42.0-54.0 % Mean Corpuscular Volume 83.3 80.0-94.0 fL Mean Corpuscular Hemoglobin 27.0 25.9-34.0 pg Mean Corpuscular HGB Conc 32.4 29.9-35.2 g/dL Red Cell Distribution Width 27.6 11.0-15.0 % Platelet Count 230 150-450 10 3/uL Mean Platelet Volume 9.2 9.5-13.5 fL Neutrophils Percent Auto 49.9 43.0-75.0 % Lymphocytes Percent Auto 26.6 20.5-60.0 % Monocytes Percent Auto 16.9 1.7-12.0 % Eosinophils Percent Auto 4.3 0.9-7.0 % Basophils Percent Auto 1.9 0.2-2.0 % Immature Granulocytes Pct Auto 0.4 0.0-0.5 % Neutrophils Absolute Auto 2.6 1.4-6.5 10 3/uL Lymphocytes Absolute Auto 1.4 1.2-3.8 10 3/uL Monocytes Absolute Auto 0.9 0.3-0.8 10 3/uL Eosinophils Absolute Auto 0.2 0.0-0.7 10 3/uL Basophils Absolute Auto 0.1 0.0-0.1 10 3/uL Immature Granulocytes Abs Auto 0.02 0.00-0.03 10 3/uL Performing Lab: see note ML - [facility] LB CRP (Not yet reviewed by pro vider) Interpretation: Performing Lab: Notes/Report: [facility] , C Reactive Protein <0.50 <=0.50 mg/dL Performing Lab: see note ML - [facility] LB Vitamin B12 (Not yet reviewe d by provider) Interpretation: Performing Lab: Notes/Report: [facility] , Vitamin B12 [phone] pg/mL Performed at: - [facility] [address] [id number] Network Development Coordinator: Tru Thornton PhD, Phone: [phone] Performing Lab: see note - [facility] LB MR pelvis wo/w con (Not yet reviewed by provider) Interpretation: Performing Lab: Notes/Report: Source Facility: [place] [address] Magnetic Resonance Report Signed Patient: ROLDAN VELASQUEZ MR#: [id number] : 1950 Acct:[id number] Age/Sex: 74 / M ADM Date: 11/01/24 Loc: MRI Attending Dr: Neymar Singh M.D. Ordering Physician: Neymra Singh M.D. Date of Service: 11/01/24 Procedure(s): MR pelvis wo/w con Accession Number(s): [id number] cc: Neymar Singh M.D.; [place] [address] Patient Name: ROLDAN VELASQUEZ MRN: [id number] date: 1950 Sex: M Assigned Patient Location: MRI Current Patient Location: Accession/Order Number: [id number] Exam Date: 11/01/2024 09:40 Report Date: 11/06/2024 11:53 At the request of: NEYMAR SINGH Procedure: MR pelvis wo/w con EXAM: MR pelvis wo/w con HISTORY: Malignant Neoplasm Of Rectum, Anemia, Nausea And Vomiting COMPARISON: PET/CT from 07/17/2024 and pelvic MRI from 07/14/2024 TECHNIQUE: Coronal T1 and fat-saturated STIR, sagittal T2 as well as axial T1, fat saturated STIR and fat-saturated T1-weighted images were obtained. Fat-saturated coronal and axial T1 weighted images were also obtained following administration of intravenous gadolinium contrast. FINDINGS: The study is degraded due to motion artifact. Rectal protocol was not performed and endometrial contrast was not utilized. Previously noted mid rectal mass is not well-visualized. No definite asymmetrical rectal wall thickening or enhancement is appreciated. Diffusion weighted images were not performed and limited evaluation of the subtle residual mass. There is perirectal T2 hyperintensity, representing fat stranding, likely posttreatment changes. Sigmoid diverticulosis without evidence of acute diverticulitis. No significant perirectal lymphadenopathy. Unchanged bilateral inguinal lymph nodes measuring up to 1.4 cm in short axis dimension. Bone marrow signal and soft tissue are unremarkable. MR/MR pelvis wo/w con IMPRESSION: Limited study due to motion artifact, limited rectal protocol as described above. No definite residual mass is noted. Follow-up with true rectal protocol is recommended. Electronically authenticated by: ELISA SOLIMAN Date: 11/06/2024 11:53 Dictated By: Elisa Soliman M.D. Signed By: 11/06/24 1156 DD/ 1153 TD/TT: Medical Specialist: [place] [address] Magnetic Resonance Report Signed Patient: TACOS VELASQUEZ MR#: [id number] : 1950 Acct:[id number] Age/Sex: 74 / M ADM Date: 11/01/24 Loc: MRI Attending Dr: Rigoberto Singh M.D. Ordering Physician: Neymar Singh M.D. Date of Service: 11/01/24 Procedure(s): MR pelvis wo/w con Accession Number(s): [id number] cc: Neymar Singh M.D.; [address] [address] Patient Name: ROLDAN VELASQUEZ MRN: [id number] date: 1950 Sex: M Assigned Patient Location: MRI Current Patient Location: Accession/Order Number: [id number] Exam Date: 11/01/2024 09:40 Report Date: 11/06/2024 11:53 At the request of: NEYMAR SINGH Procedure: MR pelvis wo/w con EXAM: MR pelvis wo/w con HISTORY: Malignant Neoplasm Of Rectum, Anemia, Nausea And Vomiting COMPARISON: PET/CT from 07/17/2024 and pelvic MRI from 07/14/2024 TECHNIQUE: Coronal T 1 and fat-saturated STIR, sagittal T2 as well as axial T1, fat saturated STIR a nd fat-saturated T1-weighted images were obtained. Fat-saturated maciel l and axial T1 weighted images were also obtained following administration of intravenous gadolinium contrast. FINDINGS: The study is degrade d due to motion artifact. Rectal protocol was not performed and endometrial contrast was not utilized. Previously noted mid rectal mass is not well-visualized. No definite asymmetrical rectal wall thickening or enhancement is appreciated. Diffusion weighted images were not performed and limited evaluation o f the subtle residual mass. There is perirectal T2 hyperintensity, representing fat stranding, likely posttreatment changes. Sigmoid diverticulos is without evidence of acute diverticulitis. No significant perirectal lymphadenopathy. Unchanged bilateral inguinal lymph nodes measuring up t o 1.4 cm in short axis dimension. Bone marrow signal and soft tissue are unremarkable. MR/MR pelvis wo/w con IMPRESSION: Limited study due to motion artifact, limited rectal protocol as described above. No definite residual mass is noted. Follow-up with true rectal protocol is recommended. Electronically authenticated by: ELISA SOLIMAN Date: 11/06/2024 11:53 Dictated By: Elisa Soliman M.D. Signed By: 11/06/24 1156 DD/ 1153 TD/TT: Medical Specialist: CBC AUTO DIFF (Not yet revie wed by provider) Interpretation: Performing Lab: Notes/Report: [facility] , White Blood Count 8.8 4.0-11.0 10 3/uL Red Blood Count 3.84 4.70-6.10 10 6/uL Hemoglobin 11.4 14.0-18.0 g/dL Hematocrit 34.0 42.0-54.0 % Mean Corpuscular Volume 88.5 80.0-94.0 fL Mean Corpuscular Hemoglobin 29.7 25.9-34.0 pg Mean Corpuscular HGB Conc 33.5 29.9-35.2 g/dL Platelet Count 127 150-450 10 3/uL Mean Platelet Volume 10.1 9.5-13.5 fL Performing Lab: see note ML - [facility] LB MAGNESIUM (Not yet reviewed by provider) Interpretation: Performing Lab: Notes/Report: [facility] , Magnesium 1.7 1.8-2.4 mg/dL Performing Lab: see note ML - [facility] LB PROF 14(COMP METB) (Not yet reviewed by provider) Interpretation: Performing Lab: Notes/Report: [facility] , Sodium 132 136-145 mmol/L Potassium 3.5 3.5-5.1 mmol/L Chloride 95 98-107 mmol/L Carbon Dioxide 28.4 21.0-32.0 mmol/L Anion Gap 12.1 Glucose 114 74-106 mg/dL Blood Urea Nitrogen 14.0 7.0-18.0 mg/dL Creatinine 0.99 0.70-1.30 mg/dL Estimated GFR ( Melida >60 >=60 mL/min/1.73m 2 Estimated GFR (Non- Elizabeth >60 >=60 mL/min/1.73m 2 BUN Creatinine Ratio 14.1 Calcium 8.5 8.5-10.1 mg/dL Bilirubin Total 0.6 0.2-1.0 mg/dL Aspartate Amino Transferase 27 15-37 U/L Alanine Aminotransferase 23 16-63 U/L Alkaline Phosphatase 101 46-116 U/L Total Protein 7.0 6.4-8.2 g/dL Albumin Level 3.0 3.4-5.0 g/dL Globulin 4.0 Albumin Globulin Ratio 0.8 Performing Lab: see note ML - [facility] LB Manual Differential (Not yet reviewed by provider) Interpretation: Performing Lab: Notes/Report: [facility] , Segmented Neutrophils % Manual 81.0 43.0-75.0 Lymphocytes Percent Manual 7.0 20.5-60.0 % Monocytes Percent Manual 12.0 1.7-12.0 % Eosinophils Percent Manual 0.0 0.9-7.0 % Basophils Percent Manual 0.0 0.2-2.0 % Segmented Neut Absolute Manual 7.12 1.4-6.5 10 3/uL Lymphocytes Absolute Manual 0.61 1.20-3.80 10 3/uL Monocytes Absolute Manual 1.05 0.30-0.80 10 3/uL Eosinophils Absolute Manual 0.00 0.00-0.70 10 3/uL Basophils Abs Manual 0.00 0.00-0.10 1 0 3/uL Anisocytosis 2+ Performing Lab: see note ML - [facility] LB XR chest 2V (Not yet reviewe d by provider) Interpretation: Performing Lab: Notes/Report: Source Facility: [facility]-[address] [place] [id number] XRay Report Signed Patient: ROLDAN VELASQUEZ MR#: [id number] : 1950 Acct:[id number] Age/Sex: 74 / M ADM Date: 11/07/24 Loc: [facility] Attending Dr: Neymar Singh M.D. Ordering Physician: Neymar Singh M.D. Date of Service: 11/07/24 Procedure(s): XR chest 2V Accession Number(s): [id number] cc: Neymar Singh M.D.; [place] [address] Patient Name: ROLDAN VELASQUEZ MRN: [id number] date: 1950 Sex: M Assigned Patient Location: [facility] Current Patient Location: [facility] Accession/Order Number: [id number] Exam Date: 11/07/2024 10:01 Report Date: 11/07/2024 10:19 At the request of: NEYMAR SINGH Procedure: XR chest 2V EXAMINATION: XR chest 2V HISTORY: Cough, Fever, Colorectal Cancer On Chemo COMPARISON: 06/04/2020 TECHNIQUE: PA and lateral FINDINGS: LUNGS: Increased interstitial lung markings, grossly stable. No focal parenchymal infiltrates VASCULATURE: No increased pulmonary vasculature. PLEURA: No pneumothorax, effusion, or pleural thickening. CARDIAC: No cardiomegaly or cardiac silhouette abnormality. MEDIASTINUM: No visible mass or adenopathy. Right Port-A-Cath tip projects over the mid superior vena cava BONES: Mild degenerative disc disease and spondylosis without visible acute abnormalities. OTHER: Negative. XR/XR chest 2V IMPRESSION: Chronic interstitial changes No new focal infiltrate Electronically authenticated by: GRAHAM LINN Date: 11/07/2024 10:19 Dictated By: Graham Linn M.D. Signed By: 11/07/24 1021 DD/ 1019 TD/TT: Medical Specialist: [place] [address] XRay Report Signed Patient: TACOS VELASQUEZ MR#: [id number] : 1950 Acct:[id number] Age/Sex: 74 / M ADM Date: 11/07/24 Loc: [facility] Attending Dr: Rigoberto Singh M.D. Ordering Physician: Neymar Singh M.D. Date of Service: 11/07/24 Procedure(s): XR lorenzo st 2V Accession Number(s): [id number] cc: Neymar Singh M.D.; [place] [id number] Patient Name: ROLDAN VELASQUEZ MRN: [facility]:[id number] date: 1950 Sex: M Assigned Patient Location: [facility] Current Patient Location: [facility] Accession/Order Number: [id number] Exam Date: 11/07/2024 10:01 Report Date: 11/07/2024 10:19 At the request of: NEYMAR SINGH Procedure: XR chest 2V EXAMINATION: XR ches t 2V HISTORY: Cough, Feve r, Colorectal Cancer On Chemo COMPARISON: 06/04/2020 TECHNIQUE: PA and lateral FINDINGS: LUNGS: Increased interstitial lung markings, grossly stable. No focal parenchymal infiltrates VASCULATURE: No increased pulmonary vasculature. PLEURA: No pneumothorax, effusion, or pleural thickening. CARDIAC: No cardiomegaly or cardiac silhouette abnormality. MEDIASTINUM: No visible mass or adenopathy. Right Port-A-Cath tip projects over the mid superior sachin a cava BONES: Mild degenerative disc disease and spondylosis without visible acute abnormalities. OTHER: Negative. XR/XR chest 2V IMPRESSION: Chronic interstitial changes No new focal infiltrate Electronically authenticated by: GRAHAM LINN Date: 11/07/2024 10:19 Dictated By: Graham Linn M.D. Signed By: 11/07/24 1021 DD/ 1019 TD/TT: Medical Specialist: CBC AUTO DIFF (Not yet revie wed by provider) Interpretation: Performing Lab: Notes/Report: [facility] , White Blood Count 4.0 4.0-11.0 10 3/uL Red Blood Count 3.21 4.70-6.10 10 6/uL Hemoglobin 10.2 14.0-18.0 g/dL Hematocrit 30.2 42.0-54.0 % Mean Corpuscular Volume 94.1 80.0-94.0 fL Mean Corpuscular Hemoglobin 31.8 25.9-34.0 pg Mean Corpuscular HGB Conc 33.8 29.9-35.2 g/dL Red Cell Distribution Width 25.5 11.0-15.0 % Platelet Count 180 150-450 10 3/uL Mean Platelet Volume 10.0 9.5-13.5 fL Neutrophils Percent Auto 27.6 43.0-75.0 % Lymphocytes Percent Auto 42.2 20.5-60.0 % Monocytes Percent Auto 24.1 1.7-12.0 % Eosinophils Percent Auto 4.8 0.9-7.0 % Basophils Percent Auto 1.0 0.2-2.0 % Immature Granulocytes Pct Auto 0.3 0.0-0.5 % Neutrophils Absolute Auto 1.1 1.4-6.5 10 3/uL Lymphocytes Absolute Auto 1.7 1.2-3.8 10 3/uL Monocytes Absolute Auto 1.0 0.3-0.8 10 3/uL Eosinophils Absolute Auto 0.2 0.0-0.7 10 3/uL Basophils Absolute Auto 0.0 0.0-0.1 10 3/uL Immature Granulocytes Abs Auto 0.01 0.00-0.03 10 3/uL Performing Lab: see note ML - [facility] LB CRP (Not yet reviewed by pro vider) Interpretation: Performing Lab: Notes/Report: [facility] , C Reactive Protein 0.95 <=0.50 mg/dL Performing Lab: see note ML - [facility] LB FERRITIN (Not yet reviewed b y provider) Interpretation: Performing Lab: Notes/Report: [facility] , Ferritin 1325.0 26.0-388.0 ng/mL Performing Lab: see note ML - [facility] LB FOLATE (Not yet reviewed by provider) Interpretation: Performing Lab: Notes/Report: [facility] , Folate 22.30 8.60-58.90 ng/mL Performing Lab: see note ML - [facility] LB IRON AND TIBC (Not yet revie wed by provider) Interpretation: Performing Lab: Notes/Report: [facility] , Iron 48.0 65.0-175.0 ug/dL Total Iron Binding Capacity 200.0 250.0-450.0 ug/dL Percent Iron Saturation 24.0 Performing Lab: see note ML - [facility] LB MAGNESIUM (Not yet reviewed by provider) Interpretation: Performing Lab: Notes/Report: [facility] , Magnesium 1.8 1.8-2.4 mg/dL Performing Lab: see note - [facility] LB PROF 14(COMP METB) (Not yet reviewed by provider) Interpretation: Performing Lab: Notes/Report: [facility] , Sodium 133 136-145 mmol/L Potassium 3.7 3.5-5.1 mmol/L Chloride 101 98-107 mmol/L Carbon Dioxide 28.7 21.0-32.0 mmol/L Anion Gap 7.0 Glucose 105 74-106 mg/dL Blood Urea Nitrogen 7.0 7.0-18.0 mg/dL Creatinine 0.83 0.70-1.30 mg/dL Estimated GFR ( Melida >60 >=60 mL/min/1.73m 2 Estimated GFR (Non- Elizabeth >60 >=60 mL/min/1.73m 2 BUN Creatinine Ratio 8.4 Calcium 8.7 8.5-10.1 mg/dL Bilirubin Total 0.3 0.2-1.0 mg/dL Aspartate Amino Transferase 21 15-37 U/L Alanine Aminotransferase 13 16-63 U/L Alkaline Phosphatase 134 46-116 U/L Total Protein 6.9 6.4-8.2 g/dL Albumin Level 2.6 3.4-5.0 g/dL Globulin 4.3 Albumin Globulin Ratio 0.6 Performing Lab: see note ML - [facility] LB Erythrocyte Sedimentation Ra te (Not yet reviewed by provider) Interpretation: Performing Lab: Notes/Report: [facility] , Erythrocyte Sedimentation Rate 115 <=20 mm/hr Performing Lab: see note ML - [facility] LB CT CHEST W CON (Not yet revi ewed by provider) Interpretation: Performing Lab: Notes/Report: Source Facility: [facility]-[address] [place] [address] CT Scan Report Signed Patient: ROLDAN VELASQUEZ MR#: [id number] : 1950 Acct:[id number] Age/Sex: 74 / M ADM Date: 11/29/24 Loc: CT Attending Dr: Neymar Singh M.D. Ordering Physician: Neymar Singh M.D. Date of Service: 11/29/24 Procedure(s): CT chest w con Accession Number(s): [id number] cc: [place] [address] Patient Name: ROLDAN VELASQUEZ MRN: [id number] date: 1950 Sex: M Assigned Patient Location: [facility] Current Patient Location: [facility] Accession/Order Number: [id number] Exam Date: 11/29/2024 16:51 Report Date: 11/29/2024 17:05 At the request of: NEYMAR SINGH MD Procedure: CT chest w con CT CHEST WITH INTRAVENOUS CONTRAST: CLINICAL HISTORY: Acute Cough, Malignant Neoplasm Rectum COMPARISON: CT chest 2024 TECHNIQUE: Spiral images were obtained through the chest following intravenous administration of IV contrast. This CT exam was performed using one or more following dose reduction techniques: Automated exposure control, adjustment of the mA and/or kV according to patient size, or use of iterative reconstruction technique. FINDINGS: Mediastinum:Thoracic aorta appears normal in caliber. Right-sided port is in place. Pulmonary trunk appears nondilated. No pleural effusion. No lymphadenopathy. The esophagus is grossly unremarkable. Lungs:Respiratory motion limits evaluation. There appears be fibrotic changes involving the lungs without definitive honeycombing. Ill-defined area of groundglass is seen involving the superior segment of the right lower lobe and right upper lobe. Abd:No acute findings. Soft tissues/Bones: No acute process. Osseous structures demonstrate degenerative change. CT/CT chest w con IMPRESSION: Respiratory motion limits evaluation. Ill-defined area of groundglass superior segment right lower lobe and right upper lobe. CT follow-up is recommended to ensure resolution. A similar process is noted on the prior study from 2024. Impression dictated by: Peter Child Jr., D.O.11/29/2024 5:05 PM Dictation Location: [place] [address] Electronically authenticated by: [id number] Y Date: 11/29/2024 17:05 Dictated By: Peter Child M.D. Signed By: 11/29/241707 DD/ 04 TD/TT: Medical Specialist: [place] [address] CT Scan Report Signed Patient: TACOS VLEASQUEZ MR#: [id number] : 1950 Acct:[id number] Age/Sex: 74 / M ADM Date: 11/29/24 Loc: CT Attending Dr: Rigoberto Singh M.D. Ordering Physician: Neymar Singh M.D. Date of Service: 11/29/24 Procedure(s): CT lorenzo st w con Accession Number(s): [id number] cc: [place] [address] Patient Name: ROLADN VELASQUEZ MRN: [id number] date: 1950 Sex: M Assigned Patient Location: [facility] Current Patient Location: [facility] Accession/Order Number: [id number] Exam Date: 11/29/2024 16:51 Report Date: 11/29/2024 17:05 At the request of: NEYMAR SINGH MD Procedure: CT chest w con CT CHEST WITH INTRAVENOUS CONTRAST: CLINICAL HISTORY: Acute Cough, Malignant Neoplasm Rectum COMPARISON: CT chest 2024 TECHNIQUE: Spiral images were obtained through the chest following intravenous administration of IV contrast. This CT exam was performed using one or more followin g dose reduction techniques: Automated exposure control, adjustment of the mA and/or kV according to patient size, or use of iterative reconstruction technique. FINDINGS: Mediastinum:Thoracic aorta appears normal in caliber. Right-sided port is in place. Pulmonary kristofer nk appears nondilated. No pleural effusion. No lymphadenopathy. The esophagus is grossly unremarkable. Lungs:Respiratory motion limits evaluation. There appears be fibrotic changes involving the lungs without definitive honeycombing. Ill-defined area of groundglass is seen involving the superior segment of the right lower lobe and right upper lobe. Abd:No acute findings. Soft tissues/Bones: No acute process. Osseous structures demonstrate degenerative change. CT/CT chest w con IMPRESSION: Respiratory motion limits evaluation. Ill-defined area of groundglass superior segment rig ht lower lobe and right upper lobe. CT follow-up is recommended to ensur e resolution. A similar process is noted on the prior study from 2024. Impression dictated by: Peter Child Jr., D.O.11/29/2024 5:05 PM Dictation Location: [place] [address] Electronically authenticated by: [id number] Y Date: 11/29/2024 17:05 Dictated By: Peter Child M.D. Signed By: 11/29/241707 DD/ 04 TD/TT: Medical Specialist: MAGNESIUM (Not yet reviewed by provider) Interpretation: Performing Lab: Notes/Report: [facility] , Magnesium 1.9 1.8-2.4 mg/dL Performing Lab: see note ML - [facility] LB PROF 14(COMP METB) (Not yet reviewed by provider) Interpretation: Performing Lab: Notes/Report: [facility] , Sodium 140 136-145 mmol/L Potassium 3.9 3.5-5.1 mmol/L Chloride 104 98-107 mmol/L Carbon Dioxide 25.6 21.0-32.0 mmol/L Anion Gap 14.3 Glucose 102 74-106 mg/dL Blood Urea Nitrogen 8.0 7.0-18.0 mg/dL Creatinine 0.78 0.70-1.30 mg/dL Estimated GFR ( Melida >60 >=60 mL/min/1.73m 2 Estimated GFR (Non- Elizabeth >60 >=60 mL/min/1.73m 2 BUN Creatinine Ratio 10.3 Calcium 8.8 8.5-10.1 mg/dL Bilirubin Total 1.2 0.2-1.0 mg/dL Aspartate Amino Transferase 30 15-37 U/L Alanine Aminotransferase 13 16-63 U/L Alkaline Phosphatase 145 46-116 U/L Total Protein 7.2 6.4-8.2 g/dL Albumin Level 3.0 3.4-5.0 g/dL Globulin 4.2 Albumin Globulin Ratio 0.7 Performing Lab: see note - [facility] LB CEA (Not yet reviewed by pro vider) Interpretation: Performing Lab: Notes/Report: [facility] , CEA 8.0 0.0-4.7 ng/mL Nonsmokers <3.9 Smokers <5.6 [employer] Electrochemiluminescence Immunoassay (ECLIA) Values obtained with different assay methods or kits cannot be used interchangeably. Results cannot be interpreted as absolute evidence of the presence or absence of malignant disease. Performed at: [address] [id number] Network Development Coordinator: Tru Thornton PhD, Phone: [phone] Performing Lab: see note - [facility] LB CEA (Not yet reviewed by pro vider) Interpretation: Performing Lab: Notes/Report: [facility] , CEA 6.3 0.0-4.7 ng/mL Nonsmokers <3.9 Smokers <5.6 [employer] Electrochemiluminescence Immunoassay (ECLIA) Values obtained with different assay methods or kits cannot be used interchangeably. Results cannot be interpreted as absolute evidence of the presence or absence of malignant disease. Performed at: [address] [id number] Network Development Coordinator: Tru Thornton PhD, Phone: [phone] Performing Lab: see note - [facility] LB Vitamin B12 (Not yet reviewe d by provider) Interpretation: Performing Lab: Notes/Report: [facility] , Vitamin B12 287 012-7324 pg/mL Performed at: [address] [id number] Network Development Coordinator: Tru Thornton PhD, Phone: [phone] Performing Lab: see note - [facility] LB CT CHEST W CON (Not yet revi ewed by provider) Interpretation: Performing Lab: Notes/Report: Source Facility: [place] [address] The [address] [address] [address] Scan Report Signed Patient: ROLDAN VELASQUEZ MR#: [id number] : 1950 Acct:[id number] Age/Sex: 74 / M ADM Date: 02/20/25 Loc: LAB Attending Dr: Neymar Singh M.D. Ordering Physician: Neymar Singh M.D. Date of Service: 02/20/25 Procedure(s): CT chest w con Accession Number(s): [id number] cc: [address] [address] Patient Name: ROLDAN VELASQUEZ MRN: [facility]:[id number] date: 1950 Sex: M Assigned Patient Location: LAB Current Patient Location: LAB Accession/Order Number: [id number] Exam Date: 02/20/2025 11:50 Report Date: 02/20/2025 12:41 At the request of: NEYMAR SINGH MD Procedure: CT abdomen pelvis w con CT CHEST, ABDOMEN AND PELVIS WITH INTRAVENOUS CONTRAST: CLINICAL HISTORY: Restaging rectal cancer. Last chemotherapy 6 weeks ago. Acute Cough COMPARISON: 2024 TECHNIQUE: Spiral images were obtained through the chest, abdomen and pelvis following oral and intravenous administration of 100 mL of Omnipaque 300. Images of the chest were reviewed using both narrow and wide window settings. This CT exam was performed using one or more following dose reduction techniques: Automated exposure control, adjustment of the mA and/or kV according to patient size, or use of iterative reconstruction technique. A right-sided Vrivte-h-Cwqs catheter is seen. The heart is mildly prominent. No pericardial effusion is present. There is minimal coronary disease. No aortic aneurysm or dissection is noted. There is minimal atherosclerotic plaque at the aortic arch. Scattered mediastinal and hilar lymph nodes are present, slightly larger. A prevascular lymph node on the left which previously measured 8 mm in short axis dimension and 1 cm. Ground glass parenchymal changes are again seen, greatest at the right upper lobe there is interval worsening. Scattered areas of linear scarring or atelectasis are noted. There is interstitial thickening having a somewhat fibrotic appearance, greatest at the lower lungs. Pulmonary nodularity on the left has increased. The largest nodule at the lower lobe measuring 1 cm. There is slight dextroscoliotic curvature as well as mild degenerative changes involving the spine. There is some motion artifact. There is slight decreased attenuation of the hepatic parenchyma that may be fatty infiltration. No intrahepatic masses are identified. No calcified gallstones are noted. The spleen, pancreas and adrenal glands show no acute findings. There are symmetric renal nephrograms, without hydronephrosis. There is scarring at the lower pole the right kidney. The abdominal aorta is normal caliber and there is minimal atherosclerotic plaque. No enlarged lymph nodes are identified. No ascites is seen. There are normal caliber small bowel loops. Mild stool is visualized along the colon. Dextroscoliotic curvature and mild degenerative changes are seen at the spine. Imaging of the pelvis shows normal caliber small bowel loops. There is no appendiceal inflammation. There is a small amount of colonic stool. Sigmoid diverticula are seen. There is no active inflammation. The wall thickening seen at the rectum at the time of the prior has essentially resolved. There is mild presacral fibrofatty stranding as well as some stranding along the paracolic gutters of the pelvis. There is no ascites. The prostate appears small. The urinary bladder is poorly distended and there is apparent wall thickening. There are small benign-appearing inguinal lymph nodes. No intrapelvic lymphadenopathy is identified. Minor degenerative change is seen at the SI joints and hips. CT/CT chest w con IMPRESSION: MILD CARDIOMEGALY. INCREASING MEDIASTINAL AND HILAR LYMPHADENOPATHY. INCREASING LEFT-SIDED PULMONARY NODULARITY. WORSENING PULMONARY PARENCHYMAL CHANGES. SUSPECTED FATTY LIVER. NO DEVELOPING LYMPHADENOPATHY. IMPROVEMENT OF WALL THICKENING SEEN PREVIOUSLY AT THE RECTUM. DIVERTICULOSIS. URINARY BLADDER WALL THICKENING. THIS MAY RELATE TO UNDERDISTENTION THOUGH CORRELATION IS SUGGESTED TO EXCLUDE ANY POSSIBILITY OF CYSTITIS. Impression dictated by: Arianna Vega M.D. 02/20/2025 12:41 PM Dictation Location: [place] [address] Electronically authenticated by: [id number] Y Date: 02/20/2025 12:41 Dictated By: Arianna Vega M.D. Signed By: 02/20/25 1243 DD/ 1241 TD/TT: Medical Specialist: The [address] [address] [address] Scan Report Signed Patient: TACOS VELASQUEZ MR#: [id number] : 1950 Acct:[id number] Age/Sex: 74 / M ADM Date: 02/20/25 Loc: LAB Attending Dr: Rigoberto Singh M.D. Ordering Physician: Neymar Singh M.D. Date of Service: 02/20/25 Procedure(s): CT [facility] [facility] w con Accession Number(s): [id number] cc: [place] [address] [place], [place] [address] Patient Name: ROLDAN VELASQUEZ MRN: [id number] date: 1950 Sex: M Assigned Patient Location: LAB Current Patient Location: LAB Accession/Order Number: [id number] Exam Date: 02/20/2025 11:50 Report Date: 02/20/2025 12:41 At the request of: NEYMAR SINGH MD Procedure: CT abdome n pelvis w con CT CHEST, ABDOMEN AN D PELVIS WITH INTRAVENOUS CONTRAST: CLINICAL HISTORY: Restaging rectal cancer. Last chemotherapy 6 weeks ago. Acute Cough COMPARISON: 2024 TECHNIQUE: Spiral images were obtained through the chest, abdomen and pelvis following oral and intravenous administration of 100 mL of Omnipaque 300. Images of the chest were reviewed using both narrow and wide window settings. This CT exam was performed using one or more following dose reduction techniques: Automate d exposure control, adjustment of the mA and/or kV according to patient size, or use of iterative reconstruction technique. A right-sided Hdvstl-h-Xytn catheter is seen. The heart is mildly prominent. No pericardial effusion is present. There is minimal coronary disease. No aortic aneurysm or dissection is noted. There is minimal atherosclerotic plaque at the aortic arch. Scattered mediastinal and hilar lymph nodes are present, slightly larger. A prevascular lymph node on the left which previously measured 8 mm in short axis dimension and 1 cm. Ground glass parenchymal changes are again seen, greatest at the right upper lobe there is interval worsening. Scattered areas of linear scarring or atelectasis are noted. There is interstitial thickening having a somewhat fibrotic appearance, greatest at the lower lungs. Pulmonary nodularity on the left has increased. The large st nodule at the lower lobe measuring 1 cm. There is slight dextroscoliot ic curvature as well as mild degenerative changes involving the spine. There is some motion artifact. There is slight decreased attenuation of the hepatic parenchyma that may be fatty infiltration. No intrahepatic masses are identified. No calcified gallstones are noted. The spleen, pancreas and adrenal glands show no acute findings. There are symmetric renal nephrograms, without hydronephrosis. There is scarring at the lower pole the right kidney. The abdominal aorta is normal caliber and there is minimal atherosclerotic plaque. No enlarged lymph nodes are identified. No ascites is seen. There are normal caliber small bowel loops. Mild stool is visualized along the colon. Dextroscoliot ic curvature and mild degenerative changes are seen at the spine. Imaging of the pelvi s shows normal caliber small bowel loops. There is no appendiceal inflammation. There is a small amount of colonic stool. Sigmoid diverticula are seen . There is no active inflammation. The wall thickening seen at the rectum a t the time of the prior has essentially resolved. There is mild presacral fibrofatty stranding as well as some stranding along the paracolic gutters of the pelvis. There is no ascites. The prostate appears small. The urinary bladder is poorly distended and there is apparent wall thickening. There ar e small benign-appearing inguinal lymph nodes. No intrapelvic lymphadenopathy is identified. Minor degenerative change is seen at the SI joints and hips. CT/CT chest w con IMPRESSION: MILD CARDIOMEGALY. INCREASING MEDIASTIN AL AND HILAR LYMPHADENOPATHY. INCREASING LEFT-SIDE D PULMONARY NODULARITY. WORSENING PULMONARY PARENCHYMAL CHANGES. SUSPECTED FATTY LIVER. NO DEVELOPING LYMPHADENOPATHY. IMPROVEMENT OF WALL THICKENING SEEN PREVIOUSLY AT THE RECTUM. DIVERTICULOSIS. URINARY BLADDER WALL THICKENING. THIS MAY RELATE TO UNDERDISTENTION THOUGH CORRELATION IS SUGGESTED TO EXCLUDE ANY POSSIBILITY OF CYSTITIS. Impression dictated by: Arianna Vega M.D. 02/20/2025 12:41 PM Dictation Location: [place] [address] Electronically authenticated by: [id number] Y Date: 02/20/2025 12:41 Dictated By: Arianna Vega M.D. Signed By: 02/20/25 1243 DD/ 1241 TD/TT: Medical Specialist: CT abdomen pelvis w con (Not yet reviewed by provider) Interpretation: Performing Lab: Notes/Report: Source Facility: [place] [address] CT Scan Report Signed Patient: ROLDAN VELASQUEZ MR#: [id number] : 1950 Acct:[id number] Age/Sex: 74 / M ADM Date: 02/20/25 Loc: LAB Attending Dr: Neymar Singh M.D. Ordering Physician: Neymar Singh M.D. Date of Service: 02/20/25 Procedure(s): CT abdomen pelvis w con Accession Number(s): [id number] cc: [place] [address] Patient Name: ROLDAN VELAQSUEZ MRN: [id number] date: 1950 Sex: M Assigned Patient Location: LAB Current Patient Location: LAB Accession/Order Number: [id number] Exam Date: 02/20/2025 11:50 Report Date: 02/20/2025 12:41 At the request of: NEYMAR SINGH MD Procedure: CT abdomen pelvis w con CT CHEST, ABDOMEN AND PELVIS WITH INTRAVENOUS CONTRAST: CLINICAL HISTORY: Restaging rectal cancer. Last chemotherapy 6 weeks ago. Acute Cough COMPARISON: 2024 TECHNIQUE: Spiral images were obtained through the chest, abdomen and pelvis following oral and intravenous administration of 100 mL of Omnipaque 300. Images of the chest were reviewed using both narrow and wide window settings. This CT exam was performed using one or more following dose reduction techniques: Automated exposure control, adjustment of the mA and/or kV according to patient size, or use of iterative reconstruction technique. A right-sided Cfdfdy-f-Nrpu catheter is seen. The heart is mildly prominent. No pericardial effusion is present. There is minimal coronary disease. No aortic aneurysm or dissection is noted. There is minimal atherosclerotic plaque at the aortic arch. Scattered mediastinal and hilar lymph nodes are present, slightly larger. A prevascular lymph node on the left which previously measured 8 mm in short axis dimension and 1 cm. Ground glass parenchymal changes are again seen, greatest at the right upper lobe there is interval worsening. Scattered areas of linear scarring or atelectasis are noted. There is interstitial thickening having a somewhat fibrotic appearance, greatest at the lower lungs. Pulmonary nodularity on the left has increased. The largest nodule at the lower lobe measuring 1 cm. There is slight dextroscoliotic curvature as well as mild degenerative changes involving the spine. There is some motion artifact. There is slight decreased attenuation of the hepatic parenchyma that may be fatty infiltration. No intrahepatic masses are identified. No calcified gallstones are noted. The spleen, pancreas and adrenal glands show no acute findings. There are symmetric renal nephrograms, without hydronephrosis. There is scarring at the lower pole the right kidney. The abdominal aorta is normal caliber and there is minimal atherosclerotic plaque. No enlarged lymph nodes are identified. No ascites is seen. There are normal caliber small bowel loops. Mild stool is visualized along the colon. Dextroscoliotic curvature and mild degenerative changes are seen at the spine. Imaging of the pelvis shows normal caliber small bowel loops. There is no appendiceal inflammation. There is a small amount of colonic stool. Sigmoid diverticula are seen. There is no active inflammation. The wall thickening seen at the rectum at the time of the prior has essentially resolved. There is mild presacral fibrofatty stranding as well as some stranding along the paracolic gutters of the pelvis. There is no ascites. The prostate appears small. The urinary bladder is poorly distended and there is apparent wall thickening. There are small benign-appearing inguinal lymph nodes. No intrapelvic lymphadenopathy is identified. Minor degenerative change is seen at the SI joints and hips. CT/CT abdomen pelvis w con IMPRESSION: MILD CARDIOMEGALY. INCREASING MEDIASTINAL AND HILAR LYMPHADENOPATHY. INCREASING LEFT-SIDED PULMONARY NODULARITY. WORSENING PULMONARY PARENCHYMAL CHANGES. SUSPECTED FATTY LIVER. NO DEVELOPING LYMPHADENOPATHY. IMPROVEMENT OF WALL THICKENING SEEN PREVIOUSLY AT THE RECTUM. DIVERTICULOSIS. URINARY BLADDER WALL THICKENING. THIS MAY RELATE TO UNDERDISTENTION THOUGH CORRELATION IS SUGGESTED TO EXCLUDE ANY POSSIBILITY OF CYSTITIS. Impression dictated by: Arianna Vega M.D. 02/20/2025 12:41 PM Dictation Location: [place] [address] Electronically authenticated by: [id number] Y Date: 02/20/2025 12:41 Dictated By: Arianna Vega M.D. Signed By: 02/20/25 1244 DD/ 1241 TD/TT: Medical Specialist: [place] [address] CT Scan Report Signed Patient: TACOS VELASQUEZ MR#: [id number] : 1950 Acct:[id number] Age/Sex: 74 / M ADM Date: 02/20/25 Loc: LAB Attending Dr: Rigoberto Singh M.D. Ordering Physician: Neymar Singh M.D. Date of Service: 02/20/25 Procedure(s): CT abdomen pelvis w con Accession Number(s): [id number] cc: [place] [address] Patient Name: ROLDAN VELASQUEZ MRN: [id number] date: 1950 Sex: M Assigned Patient Location: LAB Current Patient Location: LAB Accession/Order Number: [id number] Exam Date: 02/20/2025 11:50 Report Date: 02/20/2025 12:41 At the request of: NEYMAR SINGH MD Procedure: CT abdome n pelvis w con CT CHEST, ABDOMEN AN D PELVIS WITH INTRAVENOUS CONTRAST: CLINICAL HISTORY: Restaging rectal cancer. Last chemotherapy 6 weeks ago. Acute Cough COMPARISON: 2024 TECHNIQUE: Spiral images were obtained through the chest, abdomen and pelvis following oral and intravenous administration of 100 mL of Omnipaque 300. Images of the chest were reviewed using both narrow and wide window settings. This CT exam was performed using one or more following dose reduction techniques: Automate d exposure control, adjustment of the mA and/or kV according to patient size, or use of iterative reconstruction technique. A right-sided Rkxxfl-c-Bryc catheter is seen. The heart is mildly prominent. No pericardial effusion is present. There is minimal coronary disease. No aortic aneurysm or dissection is noted. There is minimal atherosclerotic plaque at the aortic arch. Scattered mediastinal and hilar lymph nodes are present, slightly larger. A prevascular lymph node on the left which previously measured 8 mm in short axis dimension and 1 cm. Ground glass parenchymal changes are again seen, greatest at the right upper lobe there is interval worsening. Scattered areas of linear scarring or atelectasis are noted. There is interstitial thickening having a somewhat fibrotic appearance, greatest at the lower lungs. Pulmonary nodularity on the left has increased. The large st nodule at the lower lobe measuring 1 cm. There is slight dextroscoliot ic curvature as well as mild degenerative changes involving the spine. There is some motion artifact. There is slight decreased attenuation of the hepatic parenchyma that may be fatty infiltration. No intrahepatic masses are identified. No calcified gallstones are noted. The spleen, pancreas and adrenal glands show no acute findings. There are symmetric renal nephrograms, without hydronephrosis. There is scarring at the lower pole the right kidney. The abdominal aorta is normal caliber and there is minimal atherosclerotic plaque. No enlarged lymph nodes are identified. No ascites is seen. There are normal caliber small bowel loops. Mild stool is visualized along the colon. Dextroscoliot ic curvature and mild degenerative changes are seen at the spine. Imaging of the pelvi s shows normal caliber small bowel loops. There is no appendiceal inflammation. There is a small amount of colonic stool. Sigmoid diverticula are seen . There is no active inflammation. The wall thickening seen at the rectum a t the time of the prior has essentially resolved. There is mild presacral fibrofatty stranding as well as some stranding along the paracolic gutters of the pelvis. There is no ascites. The prostate appears small. The urinary bladder is poorly distended and there is apparent wall thickening. There ar e small benign-appearing inguinal lymph nodes. No intrapelvic lymphadenopathy is identified. Minor degenerative change is seen at the SI joints and hips. CT/CT abdomen pelvis w con IMPRESSION: MILD CARDIOMEGALY. INCREASING MEDIASTIN AL AND HILAR LYMPHADENOPATHY. INCREASING LEFT-SIDE D PULMONARY NODULARITY. WORSENING PULMONARY PARENCHYMAL CHANGES. SUSPECTED FATTY LIVER. NO DEVELOPING LYMPHADENOPATHY. IMPROVEMENT OF WALL THICKENING SEEN PREVIOUSLY AT THE RECTUM. DIVERTICULOSIS. URINARY BLADDER WALL THICKENING. THIS MAY RELATE TO UNDERDISTENTION THOUGH CORRELATION IS SUGGESTED TO EXCLUDE ANY POSSIBILITY OF CYSTITIS. Impression dictated by: Arianna Vega M.D. 02/20/2025 12:41 PM Dictation Location: [place] [address] Electronically authenticated by: [id number] Y Date: 02/20/2025 12:41 Dictated By: Arianna Vega M.D. Signed By: 02/20/25 1244 DD/ 1241 TD/TT: Medical Specialist: Erythrocyte Sedimentation Ra te (Not yet reviewed by provider) Interpretation: Performing Lab: Notes/Report: [facility] , Erythrocyte Sedimentation Rate 92 <=20 mm/hr Performing Lab: see note ML - [facility] LB PROF 14(COMP METB) (Not yet reviewed by provider) Interpretation: Performing Lab: Notes/Report: [facility] , Sodium 142 136-145 mmol/L Potassium 4.4 3.5-5.1 mmol/L Chloride 104 98-107 mmol/L Carbon Dioxide 28.1 21.0-32.0 mmol/L Anion Gap 14.3 Glucose 113 74-106 mg/dL Blood Urea Nitrogen 7.0 7.0-18.0 mg/dL Creatinine 0.78 0.70-1.30 mg/dL Estimated GFR ( Melida >60 >=60 mL/min/1.73m 2 Estimated GFR (Non- Elizabeth >60 >=60 mL/min/1.73m 2 BUN Creatinine Ratio 9.0 Calcium 9.2 8.5-10.1 mg/dL Bilirubin Total 0.7 0.2-1.0 mg/dL Aspartate Amino Transferase 25 15-37 U/L Alanine Aminotransferase 15 16-63 U/L Alkaline Phosphatase 182 46-116 U/L Total Protein 8.4 6.4-8.2 g/dL Albumin Level 3.4 3.4-5.0 g/dL Globulin 5.0 Albumin Globulin Ratio 0.7 Performing Lab: see note ML - [facility] LB MAGNESIUM (Not yet reviewed by provider) Interpretation: Performing Lab: Notes/Report: [facility] , Magnesium 2.0 1.8-2.4 mg/dL Performing Lab: see note ML - [facility] LB IRON AND TIBC (Not yet revie wed by provider) Interpretation: Performing Lab: Notes/Report: [facility] , Iron 63.0 65.0-175.0 ug/dL Total Iron Binding Capacity 265.0 250.0-450.0 ug/dL Percent Iron Saturation 23.8 Performing Lab: see note ML - [facility] LB FOLATE (Not yet reviewed by provider) Interpretation: Performing Lab: Notes/Report: [facility] , Folate 26.10 8.60-58.90 ng/mL Performing Lab: see note ML - [facility] LB FERRITIN (Not yet reviewed b y provider) Interpretation: Performing Lab: Notes/Report: [facility] , Ferritin 341.0 26.0-388.0 ng/mL Performing Lab: see note ML - [facility] LB CRP (Not yet reviewed by pro vider) Interpretation: Performing Lab: Notes/Report: [facility] , C Reactive Protein <0.50 <=0.50 mg/dL Performing Lab: see note ML - [facility] LB CBC AUTO DIFF (Not yet revie wed by provider) Interpretation: Performing Lab: Notes/Report: [facility] , White Blood Count 7.6 4.0-11.0 10 3/uL Red Blood Count 4.09 4.70-6.10 10 6/uL Hemoglobin 13.3 14.0-18.0 g/dL Hematocrit 40.1 42.0-54.0 % Mean Corpuscular Volume 98.0 80.0-94.0 fL Mean Corpuscular Hemoglobin 32.5 25.9-34.0 pg Mean Corpuscular HGB Conc 33.2 29.9-35.2 g/dL Red Cell Distribution Width 12.9 11.0-15.0 % Platelet Count 198 150-450 10 3/uL Mean Platelet Volume 10.3 9.5-13.5 fL Neutrophils Percent Auto 71.3 43.0-75.0 % Lymphocytes Percent Auto 17.0 20.5-60.0 % Monocytes Percent Auto 7.7 1.7-12.0 % Eosinophils Percent Auto 3.0 0.9-7.0 % Basophils Percent Auto 0.9 0.2-2.0 % Immature Granulocytes Pct Auto 0.1 0.0-0.5 % Neutrophils Absolute Auto 5.4 1.4-6.5 10 3/uL Lymphocytes Absolute Auto 1.3 1.2-3.8 10 3/uL Monocytes Absolute Auto 0.6 0.3-0.8 10 3/uL Eosinophils Absolute Auto 0.2 0.0-0.7 10 3/uL Basophils Absolute Auto 0.1 0.0-0.1 10 3/uL Immature Granulocytes Abs Auto 0.01 0.00-0.03 10 3/uL Performing Lab: see note ML - [facility] LB CBC AUTO DIFF (Not yet revie wed by provider) Interpretation: Performing Lab: Notes/Report: [facility] , White Blood Count 7.7 4.0-11.0 10 3/uL Red Blood Count 3.23 4.70-6.10 10 6/uL Hemoglobin 11.0 14.0-18.0 g/dL Hematocrit 32.6 42.0-54.0 % Mean Corpuscular Volume 100.9 80.0-94.0 fL Mean Corpuscular Hemoglobin 34.1 25.9-34.0 pg Mean Corpuscular HGB Conc 33.7 29.9-35.2 g/dL Red Cell Distribution Width 17.8 11.0-15.0 % Platelet Count 158 150-450 10 3/uL Mean Platelet Volume 9.8 9.5-13.5 fL Neutrophils Percent Auto 59.0 43.0-75.0 % Lymphocytes Percent Auto 17.9 20.5-60.0 % Monocytes Percent Auto 16.5 1.7-12.0 % Eosinophils Percent Auto 5.1 0.9-7.0 % Basophils Percent Auto 1.2 0.2-2.0 % Immature Granulocytes Pct Auto 0.3 0.0-0.5 % Neutrophils Absolute Auto 4.5 1.4-6.5 10 3/uL Lymphocytes Absolute Auto 1.4 1.2-3.8 10 3/uL Monocytes Absolute Auto 1.3 0.3-0.8 10 3/uL Eosinophils Absolute Auto 0.4 0.0-0.7 10 3/uL Basophils Absolute Auto 0.1 0.0-0.1 10 3/uL Immature Granulocytes Abs Auto 0.02 0.00-0.03 10 3/uL Performing Lab: see note ML - [facility] LB PROF 14(COMP METB) (Not yet reviewed by provider) Interpretation: Performing Lab: Notes/Report: [facility] , Sodium 135 136-145 mmol/L Potassium 4.0 3.5-5.1 mmol/L Chloride 100 98-107 mmol/L Carbon Dioxide 26.8 21.0-32.0 mmol/L Anion Gap 12.2 Glucose 112 74-106 mg/dL Blood Urea Nitrogen 18.0 7.0-18.0 mg/dL Creatinine 0.87 0.70-1.30 mg/dL Estimated GFR ( Melida >60 >=60 mL/min/1.73m 2 Estimated GFR (Non- Elizabeth >60 >=60 mL/min/1.73m 2 BUN Creatinine Ratio 20.7 Calcium 9.3 8.5-10.1 mg/dL Bilirubin Total 0.5 0.2-1.0 mg/dL Aspartate Amino Transferase 22 15-37 U/L Alanine Aminotransferase 15 16-63 U/L Alkaline Phosphatase 145 46-116 U/L Total Protein 7.4 6.4-8.2 g/dL Albumin Level 2.9 3.4-5.0 g/dL Globulin 4.5 Albumin Globulin Ratio 0.6 Performing Lab: see note - [facility] LB MAGNESIUM (Not yet reviewed by provider) Interpretation: Performing Lab: Notes/Report: [facility] , Magnesium 1.7 1.8-2.4 mg/dL Performing Lab: see note - [facility] LB CBC AUTO DIFF (Not yet revie wed by provider) Interpretation: Performing Lab: Notes/Report: [facility] , White Blood Count 6.5 4.0-11.0 10 3/uL Red Blood Count 3.46 4.70-6.10 10 6/uL Hemoglobin 11.2 14.0-18.0 g/dL Hematocrit 33.3 42.0-54.0 % Mean Corpuscular Volume 96.2 80.0-94.0 fL Mean Corpuscular Hemoglobin 32.4 25.9-34.0 pg Mean Corpuscular HGB Conc 33.6 29.9-35.2 g/dL Red Cell Distribution Width 23.3 11.0-15.0 % Platelet Count 191 150-450 10 3/uL Mean Platelet Volume 9.5 9.5-13.5 fL Neutrophils Percent Auto 55.0 43.0-75.0 % Lymphocytes Percent Auto 26.4 20.5-60.0 % Monocytes Percent Auto 14.0 1.7-12.0 % Eosinophils Percent Auto 2.6 0.9-7.0 % Basophils Percent Auto 1.7 0.2-2.0 % Immature Granulocytes Pct Auto 0.3 0.0-0.5 % Neutrophils Absolute Auto 3.6 1.4-6.5 10 3/uL Lymphocytes Absolute Auto 1.7 1.2-3.8 10 3/uL Monocytes Absolute Auto 0.9 0.3-0.8 10 3/uL Eosinophils Absolute Auto 0.2 0.0-0.7 10 3/uL Basophils Absolute Auto 0.1 0.0-0.1 10 3/uL Immature Granulocytes Abs Auto 0.02 0.00-0.03 10 3/uL Performing Lab: see note - [facility] LB Vitamin B12 (Not yet reviewe d by provider) Interpretation: Performing Lab: Notes/Report: [facility] , Vitamin B12 [phone] pg/mL Performed at: [facility] [address] [id number] Network Development Coordinator: Tru Thornton PhD, Phone: [phone] Performing Lab: see note - [facility] LB XR chest 2V (Not yet reviewe d by provider) Interpretation: Performing Lab: Notes/Report: Source Facility: [place] [address] XRay Report Signed Patient: ROLDAN VELASQUEZ MR#: [id number] : 1950 Acct:[id number] Age/Sex: 74 / M ADM Date: 11/17/24 Loc: RAD Attending Dr: Neymar Singh M.D. Ordering Physician: Neymar Singh M.D. Date of Service: 11/17/24 Procedure(s): XR chest 2V Accession Number(s): [id number] cc: Neymar Singh M.D.; [place] [id number] Patient Name: ROLDAN VELASQUEZ MRN: [id number] date: 1950 Sex: M Assigned Patient Location: RAD Current Patient Location: RAD Accession/Order Number: [id number] Exam Date: 11/17/2024 13:35 Report Date: 11/17/2024 13:42 At the request of: NEYMAR SINGH MD Procedure: XR chest 2V XR chest 2V 11/17/2024 1:32 PM SIGNS AND SYMPTOMS: Persistent cough, congestion, colon cancer PROTOCOL: Frontal and lateral radiographs of the chest COMPARISON: 11/07/2024 FINDINGS: The trachea is midline. There is a right-sided Dwuoje-c-Jpfb with the tip in the superior vena cava near the cavoatrial junction similar to the prior exam. No pneumothorax. The heart and mediastinal structures are within normal limits. Interstitial prominence is noted bilaterally with hazy airspace opacities degenerative changes are noted in the shoulders and thoracic spine. The bony thorax is intact. XR/XR chest 2V IMPRESSION: Mild hazy airspace opacities are present possibly representing an infectious infiltrate or edema. This is unchanged. Chronic illnesses prominence is redemonstrated. Impression dictated by: Zhao Smith M.D.11/17/2024 1:42 PM Dictation Location: [place] [address] Electronically authenticated by: [id number] Y Date: 11/17/2024 13:42 Dictated By: Zhao Smith M.D. Signed By: 11/17/24 1345 DD/ 1342 TD/TT: Medical Specialist: [place] [address] XRay Report Signed Patient: TACOS VELASQUEZ MR#: [id number] : 1950 Acct:[id number] Age/Sex: 74 / M ADM Date: 11/17/24 Loc: RAD Attending Dr: Rigoberto Singh M.D. Ordering Physician: Neymar Singh M.D. Date of Service: 11/17/24 Procedure(s): XR lorenzo st 2V Accession Number(s): [id number] cc: Neymar Singh M.D.; [address] [address] Patient Name: ROLDAN VELASQUEZ MRN: [id number] date: 1950 Sex: M Assigned Patient Location: RAD Current Patient Location: RAD Accession/Order Number: [id number] Exam Date: 11/17/2024 13:35 Report Date: 11/17/2024 13:42 At the request of: NEYMAR SINGH MD Procedure: XR chest 2V XR chest 2V 1:32 PM SIGNS AND SYMPTOMS: Persistent cough, congestion, colon cancer PROTOCOL: Frontal an d lateral radiographs of the chest COMPARISON: 11/07/2024 FINDINGS: The trachea is midline. There is a right-sided Jiquvo-y-Dsjz with the tip in the superior vena ca va near the cavoatrial junction similar to the prior exam. No pneumothorax. The heart and mediastinal structures are within normal limits. Interstitial prominence is noted bilaterally with hazy airspace opacities degenerati ve changes are noted in the shoulders and thoracic spine. The bony thorax is intact. XR/XR chest 2V IMPRESSION: Mild hazy airspace opacities are present possibly representing an infectious infiltrate or edema. This is unchanged. Chronic illnesses prominence is redemonstrated. Impression dictated by: Zhao Smith M.D.11/17/2024 1:42 PM Dictation Location: [place] [address] Electronically authenticated by: [id number] Y Date: 11/17/2024 13:42 Dictated By: Zhao Smith M.D. Signed By: 11/17/24 1345 DD/ 1342 TD/TT: Medical Specialist: PROF Villanueva(COMP METB) (Not yet reviewed by provider) Interpretation: Performing Lab: Notes/Report: [facility] , Sodium 133 136-145 mmol/L Potassium 3.4 3.5-5.1 mmol/L Chloride 97 98-107 mmol/L Carbon Dioxide 27.8 21.0-32.0 mmol/L Anion Gap 11.6 Glucose 107 74-106 mg/dL Blood Urea Nitrogen 5.0 7.0-18.0 mg/dL Creatinine 0.84 0.70-1.30 mg/dL Estimated GFR ( Melida >60 >=60 mL/min/1.73m 2 Estimated GFR (Non- Elizabeth >60 >=60 mL/min/1.73m 2 BUN Creatinine Ratio 6.0 Calcium 8.5 8.5-10.1 mg/dL Bilirubin Total 0.4 0.2-1.0 mg/dL Aspartate Amino Transferase 32 15-37 U/L Alanine Aminotransferase 20 16-63 U/L Alkaline Phosphatase 114 46-116 U/L Total Protein 6.9 6.4-8.2 g/dL Albumin Level 2.7 3.4-5.0 g/dL Globulin 4.2 Albumin Globulin Ratio 0.6 Performing Lab: see note - [facility] LB MAGNESIUM (Not yet reviewed by provider) Interpretation: Performing Lab: Notes/Report: [facility] , Magnesium 1.7 1.8-2.4 mg/dL Performing Lab: see note - [facility] LB CBC AUTO DIFF (Not yet revie wed by provider) Interpretation: Performing Lab: Notes/Report: [facility] , White Blood Count 5.5 4.0-11.0 10 3/uL Red Blood Count 3.87 4.70-6.10 10 6/uL Hemoglobin 11.7 14.0-18.0 g/dL Hematocrit 34.6 42.0-54.0 % Mean Corpuscular Volume 89.4 80.0-94.0 fL Mean Corpuscular Hemoglobin 30.2 25.9-34.0 pg Mean Corpuscular HGB Conc 33.8 29.9-35.2 g/dL Platelet Count 205 150-450 10 3/uL Mean Platelet Volume 9.4 9.5-13.5 fL Neutrophils Percent Auto 47.0 43.0-75.0 % Lymphocytes Percent Auto 29.9 20.5-60.0 % Monocytes Percent Auto 18.6 1.7-12.0 % Eosinophils Percent Auto 2.9 0.9-7.0 % Basophils Percent Auto 0.5 0.2-2.0 % Immature Granulocytes Pct Auto 1.1 0.0-0.5 % Neutrophils Absolute Auto 2.6 1.4-6.5 10 3/uL Lymphocytes Absolute Auto 1.6 1.2-3.8 10 3/uL Monocytes Absolute Auto 1.0 0.3-0.8 10 3/uL Eosinophils Absolute Auto 0.2 0.0-0.7 10 3/uL Basophils Absolute Auto 0.0 0.0-0.1 10 3/uL Immature Granulocytes Abs Auto 0.06 0.00-0.03 10 3/uL Performing Lab: see note ML - [facility] LB Erythrocyte Sedimentation Ra te (Not yet reviewed by provider) Interpretation: Performing Lab: Notes/Report: [facility] , Erythrocyte Sedimentation Rate 88 <=20 mm/hr Performing Lab: see note ML - [facility] LB PROF 14(COMP METB) (Not yet reviewed by provider) Interpretation: Performing Lab: Notes/Report: [facility] , Sodium 138 136-145 mmol/L Potassium 4.1 3.5-5.1 mmol/L Chloride 103 98-107 mmol/L Carbon Dioxide 27.7 21.0-32.0 mmol/L Anion Gap 11.4 Glucose 118 74-106 mg/dL Blood Urea Nitrogen 19.0 7.0-18.0 mg/dL Creatinine 1.02 0.70-1.30 mg/dL Estimated GFR ( Melida >60 >=60 mL/min/1.73m 2 Estimated GFR (Non- Elizabeth >60 >=60 mL/min/1.73m 2 BUN Creatinine Ratio 18.6 Calcium 9.2 8.5-10.1 mg/dL Bilirubin Total 0.7 0.2-1.0 mg/dL Aspartate Amino Transferase 23 15-37 U/L Alanine Aminotransferase 21 16-63 U/L Alkaline Phosphatase 106 46-116 U/L Total Protein 7.4 6.4-8.2 g/dL Albumin Level 3.2 3.4-5.0 g/dL Globulin 4.2 Albumin Globulin Ratio 0.8 Performing Lab: see note ML - [facility] LB MAGNESIUM (Not yet reviewed by provider) Interpretation: Performing Lab: Notes/Report: [facility] , Magnesium 2.0 1.8-2.4 mg/dL Performing Lab: see note ML - [facility] LB IRON AND TIBC (Not yet revie wed by provider) Interpretation: Performing Lab: Notes/Report: [facility] , Iron 75.0 65.0-175.0 ug/dL Total Iron Binding Capacity 310.0 250.0-450.0 ug/dL Percent Iron Saturation 24.2 Performing Lab: see note ML - [facility] LB FOLATE (Not yet reviewed by provider) Interpretation: Performing Lab: Notes/Report: [facility] , Folate 29.50 8.60-58.90 ng/mL Performing Lab: see note ML - [facility] LB FERRITIN (Not yet reviewed b y provider) Interpretation: Performing Lab: Notes/Report: [facility] , Ferritin 1720.0 26.0-388.0 ng/mL Performing Lab: see note ML - [facility] LB CBC AUTO DIFF (Not yet revie wed by provider) Interpretation: Performing Lab: Notes/Report: [facility] , White Blood Count 5.4 4.0-11.0 10 3/uL Red Blood Count 4.03 4.70-6.10 10 6/uL Hemoglobin 11.5 14.0-18.0 g/dL Hematocrit 34.8 42.0-54.0 % Mean Corpuscular Volume 86.4 80.0-94.0 fL Mean Corpuscular Hemoglobin 28.5 25.9-34.0 pg Mean Corpuscular HGB Conc 33.0 29.9-35.2 g/dL Red Cell Distribution Width 29.6 11.0-15.0 % Platelet Count 186 150-450 10 3/uL Mean Platelet Volume 9.5 9.5-13.5 fL Neutrophils Percent Auto 55.0 43.0-75.0 % Lymphocytes Percent Auto 23.9 20.5-60.0 % Monocytes Percent Auto 15.6 1.7-12.0 % Eosinophils Percent Auto 4.0 0.9-7.0 % Basophils Percent Auto 1.3 0.2-2.0 % Immature Granulocytes Pct Auto 0.2 0.0-0.5 % Neutrophils Absolute Auto 3.0 1.4-6.5 10 3/uL Lymphocytes Absolute Auto 1.3 1.2-3.8 10 3/uL Monocytes Absolute Auto 0.9 0.3-0.8 10 3/uL Eosinophils Absolute Auto 0.2 0.0-0.7 10 3/uL Basophils Absolute Auto 0.1 0.0-0.1 10 3/uL Immature Granulocytes Abs Auto 0.01 0.00-0.03 10 3/uL Performing Lab: see note ML - [facility] LB PROF 14(COMP METB) (Not yet reviewed by provider) Interpretation: Performing Lab: Notes/Report: [facility] , Sodium 137 136-145 mmol/L Potassium 4.4 3.5-5.1 mmol/L Chloride 101 98-107 mmol/L Carbon Dioxide 26.5 21.0-32.0 mmol/L Anion Gap 13.9 Glucose 103 74-106 mg/dL Blood Urea Nitrogen 10.0 7.0-18.0 mg/dL Creatinine 1.00 0.70-1.30 mg/dL Estimated GFR ( Melida >60 >=60 mL/min/1.73m 2 Estimated GFR (Non- Elizabeth >60 >=60 mL/min/1.73m 2 BUN Creatinine Ratio 10.0 Calcium 9.1 8.5-10.1 mg/dL Bilirubin Total 0.3 0.2-1.0 mg/dL Aspartate Amino Transferase 22 15-37 U/L Alanine Aminotransferase 16 16-63 U/L Alkaline Phosphatase 111 46-116 U/L Total Protein 7.1 6.4-8.2 g/dL Albumin Level 3.1 3.4-5.0 g/dL Globulin 4.0 Albumin Globulin Ratio 0.8 Performing Lab: see note ML - [facility] LB MAGNESIUM (Not yet reviewed by provider) Interpretation: Performing Lab: Notes/Report: [facility] , Magnesium 1.9 1.8-2.4 mg/dL Performing Lab: see note - [facility] LB CEA (Not yet reviewed by pro vider) Interpretation: Performing Lab: Notes/Report: [facility] , CEA 5.2 0.0-4.7 ng/mL Nonsmokers <3.9 Smokers <5.6 [employer] Electrochemiluminescence Immunoassay (ECLIA) Values obtained with different assay methods or kits cannot be used interchangeably. Results cannot be interpreted as absolute evidence of the presence or absence of malignant disease. Performed at: [address] [id number] Network Development Coordinator: Tru Thornton PhD, Phone: [phone] Performing Lab: see note [facility] LB PROF 14(COMP METB) (Not yet reviewed by provider) Interpretation: Performing Lab: Notes/Report: [facility] , Sodium 133 136-145 mmol/L Potassium 4.0 3.5-5.1 mmol/L Chloride 99 98-107 mmol/L Carbon Dioxide 24.8 21.0-32.0 mmol/L Anion Gap 13.2 Glucose 97 74-106 mg/dL Blood Urea Nitrogen 18.0 7.0-18.0 mg/dL Creatinine 0.91 0.70-1.30 mg/dL Estimated GFR ( Melida >60 >=60 mL/min/1.73m 2 Estimated GFR (Non- Elizabeth >60 >=60 mL/min/1.73m 2 BUN Creatinine Ratio 19.8 Calcium 8.5 8.5-10.1 mg/dL Bilirubin Total 0.4 0.2-1.0 mg/dL Aspartate Amino Transferase 19 15-37 U/L Alanine Aminotransferase 18 16-63 U/L Alkaline Phosphatase 114 46-116 U/L Total Protein 7.3 6.4-8.2 g/dL Albumin Level 3.1 3.4-5.0 g/dL Globulin 4.2 Albumin Globulin Ratio 0.7 Performing Lab: see note - [facility] LB MAGNESIUM (Not yet reviewed by provider) Interpretation: Performing Lab: Notes/Report: [facility] , Magnesium 2.2 1.8-2.4 mg/dL Performing Lab: see note - [facility] LB CBC AUTO DIFF (Not yet revie wed by provider) Interpretation: Performing Lab: Notes/Report: [facility] , White Blood Count 5.8 4.0-11.0 10 3/uL Red Blood Count 4.09 4.70-6.10 10 6/uL Hemoglobin 10.8 14.0-18.0 g/dL Hematocrit 32.8 42.0-54.0 % Mean Corpuscular Volume 80.2 80.0-94.0 fL Mean Corpuscular Hemoglobin 26.4 25.9-34.0 pg Mean Corpuscular HGB Conc 32.9 29.9-35.2 g/dL Red Cell Distribution Width 23.4 11.0-15.0 % Platelet Count 216 150-450 10 3/uL Mean Platelet Volume 9.1 9.5-13.5 fL Neutrophils Percent Auto 54.7 43.0-75.0 % Lymphocytes Percent Auto 19.4 20.5-60.0 % Monocytes Percent Auto 17.3 1.7-12.0 % Eosinophils Percent Auto 7.1 0.9-7.0 % Basophils Percent Auto 1.2 0.2-2.0 % Immature Granulocytes Pct Auto 0.3 0.0-0.5 % Neutrophils Absolute Auto 3.2 1.4-6.5 10 3/uL Lymphocytes Absolute Auto 1.1 1.2-3.8 10 3/uL Monocytes Absolute Auto 1.0 0.3-0.8 10 3/uL Eosinophils Absolute Auto 0.4 0.0-0.7 10 3/uL Basophils Absolute Auto 0.1 0.0-0.1 10 3/uL Immature Granulocytes Abs Auto 0.02 0.00-0.03 10 3/uL Performing Lab: see note ML - [facility] LB Erythrocyte Sedimentation Ra te (Not yet reviewed by provider) Interpretation: Performing Lab: Notes/Report: [facility] , Erythrocyte Sedimentation Rate 75 <=20 mm/hr Performing Lab: see note ML - [facility] LB IRON AND TIBC (Not yet revie wed by provider) Interpretation: Performing Lab: Notes/Report: [facility] , Iron 27.0 65.0-175.0 ug/dL Total Iron Binding Capacity 379.0 250.0-450.0 ug/dL Percent Iron Saturation 7.1 Performing Lab: see note ML - [facility] LB FERRITIN (Not yet reviewed b y provider) Interpretation: Performing Lab: Notes/Report: [facility] , Ferritin 21.0 26.0-388.0 ng/mL Performing Lab: see note ML - [facility] LB CBC AUTO DIFF (Not yet revie wed by provider) Interpretation: Performing Lab: Notes/Report: [facility] , White Blood Count 5.0 4.0-11.0 10 3/uL Red Blood Count 3.80 4.70-6.10 10 6/uL Hemoglobin 9.5 14.0-18.0 g/dL Hematocrit 30.2 42.0-54.0 % Mean Corpuscular Volume 79.5 80.0-94.0 fL Mean Corpuscular Hemoglobin 25.0 25.9-34.0 pg Mean Corpuscular HGB Conc 31.5 29.9-35.2 g/dL Red Cell Distribution Width 19.4 11.0-15.0 % Platelet Count 220 150-450 10 3/uL Mean Platelet Volume 10.3 9.5-13.5 fL Neutrophils Percent Auto 60.0 43.0-75.0 % Lymphocytes Percent Auto 20.2 20.5-60.0 % Monocytes Percent Auto 12.6 1.7-12.0 % Eosinophils Percent Auto 6.0 0.9-7.0 % Basophils Percent Auto 1.0 0.2-2.0 % Immature Granulocytes Pct Auto 0.2 0.0-0.5 % Neutrophils Absolute Auto 3.0 1.4-6.5 10 3/uL Lymphocytes Absolute Auto 1.0 1.2-3.8 10 3/uL Monocytes Absolute Auto 0.6 0.3-0.8 10 3/uL Eosinophils Absolute Auto 0.3 0.0-0.7 10 3/uL Basophils Absolute Auto 0.1 0.0-0.1 10 3/uL Immature Granulocytes Abs Auto 0.01 0.00-0.03 10 3/uL Performing Lab: see note - [facility] PET skull to mid thigh (Not yet reviewed by provider) Interpretation: Performing Lab: Notes/Report: Source Facility: [facility]-[address] [place] [address] PET Report Signed Patient: ROLDAN VELASQUEZ MR#: [id number] : 1950 Acct:[id number] Age/Sex: 74 / M ADM Date: 07/17/24 Loc: PETCT Attending Dr: Neymar Singh M.D. Ordering Physician: Neymar Singh M.D. Date of Service: 07/17/24 Procedure(s): PET skull to mid thigh Accession Number(s): [id number] cc: Neymar Singh M.D.; [place] [address] Patient Name: ROLDAN VELASQUEZ MRN: [id number] date: 1950 Sex: M Assigned Patient Location: PETCT Current Patient Location: PETCT Accession/Order Number: [id number] Exam Date: 07/17/2024 16:03 Report Date: 07/20/2024 17:57 At the request of: NEYMAR SINGH Procedure: PET skull to mid thigh PET/CT: HISTORY: Colorectal carcinoma with no history of chemotherapy or radiation therapy or reported history of surgery. COMPARISON: MRI pelvis 07/14/2024, CT chest abdomen pelvis 2024, CT abdomen pelvis 05/15/2024. TECHNIQUE: The patient was injected with 12.74 mCi of F-18 fluorodeoxyglucose (FDG), and an emission scan was performed from the base of the skull to the mid thigh. Noncontrast CT was performed for attenuation correction and anatomic localization. The blood glucose level was 91 mg/dl. The uptake time was 54 minutes. FINDINGS: HEAD AND NECK: There is a physiologic distribution of activity, with no hypermetabolic foci. CHEST: The SUVmax of the mediastinum = 3.2 using the patient's body weight as the normalization method. There is an enlarged right paratracheal lymph node measuring 1.8 x 1.4 cm with FDG uptake, SUV max 3.4 which is only slightly greater than the mediastinum and this has a fatty hilum. It also appears stable in size. The previously noted patchy groundglass and linear opacities in the lungs seen on the CT scan from 2024 appear essentially stable, most prominently seen in the right upper lobe. There is some associated minimal FDG uptake in the right upper lobe on image 78 for example with SUV max 2.6. Some interlobular septal thickening is also seen in the right upper lobe. There are no hypermetabolic pulmonary nodules. ABDOMEN AND PELVIS: There is a focus of intense increased activity within the rectum on image 234 with SUV max 20 corresponding to wall thickening on CT consistent with patient's known malignancy. There is a hypermetabolic right inguinal lymph node on image 265 with SUV max 4 measuring 2.3 x 1.8 cm and there is a hypermetabolic left inguinal lymph node on image 275 with SUV max 2.9 measuring 1.5 x 1.3 cm. These appear to be out of dksye-pt-cyed on the previous abdominal CT scans. There is an otherwise physiologic distribution of activity. MUSCULOSKELETAL SYSTEM: There is a focus of increased activity anterior to the left femoral head neck junction, likely stress-related or inflammatory in nature. There is also linear stress related or inflammatory activity anterior to the right femoral head. There is a normal distribution of activity in the bone marrow. ADDITIONAL CT FINDINGS: The main pulmonary artery is dilated at 3.4 cm suspicious for pulmonary hypertension. There is moderate cardiomegaly, mild coronary artery calcification and there is low attenuation of the blood in the cardiac chambers consistent with anemia. There is moderate bilateral gynecomastia. There is a 4 mm left upper lobe pulmonary nodule on image 93 which is stable and below resolution limits of PET. There is adjacent mild left upper lobe bronchiectasis. There are multiple diverticula in the sigmoid colon with no acute diverticulitis. PET/PET skull to mid thigh IMPRESSION: 1. Hypermetabolic rectal mass consistent with malignancy. 2. Hypermetabolic bilateral inguinal lymph nodes which may be metastatic or reactive in nature. Consider tissue sampling. 3. Stable pulmonary opacities particularly in the right upper lobe where there is associated mild FDG uptake. This may be secondary to interstitial pulmonary edema, atypical pneumonia or lymphangitic carcinomatosis. Recommend follow-up chest CT in 3 months. 4. Mildly FDG avid enlarged right paratracheal lymph node. This is likely reactive and less likely metastatic in nature. 5. Additional CT findings as described above. Electronically authenticated by: BERLIN TUCKER Date: 07/20/2024 17:57 Dictated By: Berlin Tucker M.D. Signed By: 07/20/241758 DD/ 56 TD/TT: Medical Specialist: [place] [address] PET Report Signed Patient: TACOS VELASQUEZ MR#: [id number] : 1950 Acct:[id number] Age/Sex: 74 / M ADM Date: 07/17/24 Loc: PETCT Attending Dr: Rigoberto Singh M.D. Ordering Physician: Neymar Singh M.D. Date of Service: 07/17/24 Procedure(s): PET skull to mid thigh Accession Number(s): [id number] cc: Neymar Singh M.D.; [address] [address] Patient Name: ROLDAN VELASQUEZ MRN: [id number] date: 1950 Sex: M Assigned Patient Location: PETCT Current Patient Location: PETCT Accession/Order Number: [id number] Exam Date: 16:03 Report Date: 07/20/2024 17:57 At the request of: NEYMAR SINGH Procedure: PET skull to mid thigh PET/CT: HISTORY: Colorectal carcinoma with no history of chemotherapy or radiation therapy or reported history of surgery. COMPARISON: MRI pelv is 07/14/2024, CT chest abdomen pelvis 2024, CT abdomen pelvis 05/15/2024. TECHNIQUE: The patie nt was injected with 12.74 mCi of F-18 fluorodeoxyglucose (FDG), and an emissi on scan was performed from the base of the skull to the mid thigh. Noncontrast C T was performed for attenuation correction and anatomic localization. The blood glucose level was 91 mg/dl. The uptake time was 54 minutes. FINDINGS: HEAD AND NECK: There is a physiologic distribution of activity, with no hypermetabolic foci. CHEST: The SUVmax of the mediastinum = 3.2 using the patient's body weight as the normalization method. There is an enlarged right paratracheal lymph node measuring 1.8 x 1.4 cm with FDG uptake, SUV max 3.4 which is only slightly greater than the mediastinum and this has a fatty hilum. It also appears stable in size. The previously noted patchy groundglass and linear opacities in the lungs seen on the CT scan from 2024 appear essentially stable, most prominently seen in the right upper lobe. There is some associated minimal FDG uptake in the right upper lobe on image 78 for example with SUV max 2.6. Some interlobular septal thickening is also seen in the right upper lobe. There are no hypermetabolic pulmonary nodules. ABDOMEN AND PELVIS: There is a focus of intense increased activity within the rectum on image 234 with SUV max 20 corresponding to wall thickening on CT consistent with patient's known malignancy. There is a hypermetabolic right inguinal lymph node on image 265 with SUV max 4 measuring 2.3 x 1.8 cm and there is a hypermetabolic left inguinal lymph node on image 275 with SUV max 2.9 measuring 1.5 x 1.3 cm. These appear to be out of agdba-mw-cjnd on the previous abdominal C T scans. There is an otherwise physiologic distribution of activity. MUSCULOSKELETAL SYSTEM: There is a focus of increased activity anterior to the left femoral head ne ck junction, likely stress-related or inflammatory in nature. There is als o linear stress related or inflammatory activity anterior to the right femoral head. There is a normal distribution of activity in the bone marrow. ADDITIONAL CT FINDINGS: The main pulmonary artery is dilated at 3.4 cm suspicious for pulmonary hypertension. There is moderate cardiomegaly, mild coronary artery calcification and there is low attenuation of the blood in the cardiac chambers consistent with anemia. There is moderate bilateral gynecomastia. There is a 4 mm left upper lobe pulmonary nodule on image 93 which is stable and below resolution limits of PET. There is adjacent mild left upper lobe bronchiectasis. There are multiple diverticula in the sigmoid colon with no acute diverticulitis. PET/PET skull to mid thigh IMPRESSION: 1. Hypermetabolic rectal mass consistent with malignancy. 2. Hypermetabolic bilateral inguinal lymph nodes which may be metastatic or reactive in nature. Consider tissue sampling. 3. Stable pulmonary opacities particularly in the right upper lobe where there is associated mild F DG uptake. This may be secondary to interstitial pulmonary edema, atypical pneumonia or lymphangitic carcinomatosis. Recommend follow-up chest CT in 3 months. 4. Mildly FDG avid enlarged right paratracheal lymph node. This is likely reactive and less likely metastatic in nature. 5. Additional CT findings as described above. Electronically authenticated by: BERLIN TUCKER Date: 07/20/2024 17:57 Dictated By: [place] Tucker M.D. Signed By: 07/20/241758 DD/ 56 TD/TT: Medical Specialist: CEA (Not yet reviewed by pro vider) Interpretation: Performing Lab: Notes/Report: [facility] , CEA 4.4 0.0-4.7 ng/mL Nonsmokers <3.9 Smokers <5.6 [facility] [employer] Electrochemiluminescence Immunoassay (ECLIA) Values obtained with different assay methods or kits cannot be used interchangeably. Results cannot be interpreted as absolute evidence of the presence or absence of malignant disease. Performed at: [address] [id number] Network Development Coordinator: Tru Thornton PhD, Phone: [phone] Performing Lab: see note [facility] LB PROF 14(COMP METB) (Not yet reviewed by provider) Interpretation: Performing Lab: Notes/Report: [facility] , Sodium 138 136-145 mmol/L Potassium 3.9 3.5-5.1 mmol/L Chloride 100 98-107 mmol/L Carbon Dioxide 26.3 21.0-32.0 mmol/L Anion Gap 15.6 Glucose 117 74-106 mg/dL Blood Urea Nitrogen 10.0 7.0-18.0 mg/dL Creatinine 1.24 0.70-1.30 mg/dL Estimated GFR ( Melida >60 >=60 mL/min/1.73m 2 Estimated GFR (Non- Elizabeth 57 >=60 mL/min/1.73m 2 BUN Creatinine Ratio 8.1 Calcium 9.1 8.5-10.1 mg/dL Bilirubin Total 1.2 0.2-1.0 mg/dL Aspartate Amino Transferase 20 15-37 U/L Alanine Aminotransferase 11 16-63 U/L Alkaline Phosphatase 130 46-116 U/L Total Protein 7.8 6.4-8.2 g/dL Albumin Level 3.5 3.4-5.0 g/dL Globulin 4.3 Albumin Globulin Ratio 0.8 Performing Lab: see note ML - [facility] LB IRON AND TIBC (Not yet revie wed by provider) Interpretation: Performing Lab: Notes/Report: [facility] , Iron 27.0 65.0-175.0 ug/dL Total Iron Binding Capacity 440.0 250.0-450.0 ug/dL Percent Iron Saturation 6.1 Performing Lab: see note ML - [facility] LB FERRITIN (Not yet reviewed b y provider) Interpretation: Performing Lab: Notes/Report: [facility] , Ferritin 24.0 26.0-388.0 ng/mL Performing Lab: see note ML - [facility] LB CBC AUTO DIFF (Not yet revie wed by provider) Interpretation: Performing Lab: Notes/Report: [facility] , White Blood Count 6.9 4.0-11.0 10 3/uL Red Blood Count 3.55 4.70-6.10 10 6/uL Hemoglobin 10.2 14.0-18.0 g/dL Hematocrit 30.5 42.0-54.0 % Mean Corpuscular Volume 85.9 80.0-94.0 fL Mean Corpuscular Hemoglobin 28.7 25.9-34.0 pg Mean Corpuscular HGB Conc 33.4 29.9-35.2 g/dL Red Cell Distribution Width 14.3 11.0-15.0 % Platelet Count 276 150-450 10 3/uL Mean Platelet Volume 10.3 9.5-13.5 fL Neutrophils Percent Auto 58.8 43.0-75.0 % Lymphocytes Percent Auto 27.3 20.5-60.0 % Monocytes Percent Auto 10.7 1.7-12.0 % Eosinophils Percent Auto 1.9 0.9-7.0 % Basophils Percent Auto 1.2 0.2-2.0 % Immature Granulocytes Pct Auto 0.1 0.0-0.5 % Neutrophils Absolute Auto 4.1 1.4-6.5 10 3/uL Lymphocytes Absolute Auto 1.9 1.2-3.8 10 3/uL Monocytes Absolute Auto 0.7 0.3-0.8 10 3/uL Eosinophils Absolute Auto 0.1 0.0-0.7 10 3/uL Basophils Absolute Auto 0.1 0.0-0.1 10 3/uL Immature Granulocytes Abs Auto 0.01 0.00-0.03 10 3/uL Performing Lab: see note ML - [facility] LB PROF 14(COMP METB) (Not yet reviewed by provider) Interpretation: Performing Lab: Notes/Report: [facility] , Sodium 138 136-145 mmol/L Potassium 3.5 3.5-5.1 mmol/L Chloride 102 98-107 mmol/L Carbon Dioxide 28.6 21.0-32.0 mmol/L Anion Gap 10.9 Glucose 108 74-106 mg/dL Blood Urea Nitrogen 14.0 7.0-18.0 mg/dL Creatinine 1.17 0.70-1.30 mg/dL Estimated GFR ( Melida >60 >=60 mL/min/1.73m 2 Estimated GFR (Non- Elizabeth >60 >=60 mL/min/1.73m 2 BUN Creatinine Ratio 12.0 Calcium 8.9 8.5-10.1 mg/dL Bilirubin Total 0.8 0.2-1.0 mg/dL Aspartate Amino Transferase 18 15-37 U/L Alanine Aminotransferase 13 16-63 U/L Alkaline Phosphatase 111 46-116 U/L Total Protein 7.3 6.4-8.2 g/dL Albumin Level 3.2 3.4-5.0 g/dL Globulin 4.1 Albumin Globulin Ratio 0.8 Performing Lab: see note - [facility] LB MAGNESIUM (Not yet reviewed by provider) Interpretation: Performing Lab: Notes/Report: [facility] , Magnesium 1.8

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
--- OUTSIDE RECORDS SUMMARY | 2025-03-26 14:25 | XMS_ITS | Encounter Summary ---
Author Organization [facility] Address [address] [place] [address] Care Team Providers Care Regional Sales Director Name Role Phone Raffi Byrd MD Primary Care Provider + Source Comments In the event this information is protected by the Federal Confidentiality of Alcohol and Drug AbusePatient Records regulations: The Federal rules restrict any use of the information to criminally investigate or prosecute any alcohol or drug abuse patient.[facility] Encounter Details Date Type Department Care Team (Late st Contact Info) Description 08/01/2024 Lab Requisition [facility] [address] [place] [address] Aimee Singh MD [address] [place] [address] Person encountering health services to consult on behalf of another person Social History Tobacco Use Types Packs/Day Years Used Date Smoking Tobacco: Never Smokeless Tobacco: Never PHQ-2 Answer Date Recorded PHQ-2 score 1 06/16/2021 Area Deprivation Index Answer Date Logan rded National Score (1-100), lower number is lower ri sk Not on file 09/03/2020 State Score (1-10), lower number is lower risk N ot on file 09/03/2020 Data from: https://www.neighborhoodatlas.medicine.[facility]/. Last address used for calculation Not on file 09/03/2020 Sex and Gender Information Value Date Recorded Sex Assigned at Not on file Legal Sex Male 10:16 AM EST Gender Identity Not on file Sexual Orientation Not on file documented as of this encounter Plan of Treatment Not on file documented as of this encounter Procedures Procedure Name Priority Date/Time Associated Diagnosis Comments SURGICAL PATHOLOGY REFERENCE LAB CONSULT Routine 08/01/2024 3:44 PM EST Person encountering health services to consult on behalf of another person documented in this encounter Results * SURGICAL PATHOLOGY REFERENCE LAB CONSULT (08/01/2024 3:44 PM EST) Case Report Surgical Pathology Report Case: [id number] Authorizing Provider: Aimee Singh MD Collected: 08/01/2024 03:44 PM Ordering Location: [facility] Received: 08/01/2024 03:44 PM [facility] Pathologist: Masoud Denson MD Specimen: Slide(s), 4 SLIDES [id number] 08/02/2024 2:12 PM EST [facility] FINAL DIAGNOSIS Rectal mass, biopsy (A1): - At least intramucosal adenocarcinoma. - See comment JRG/NK 08/02/24 08/02/2024 2:12 PM EST [facility] at 1412 EST Diagnosis Comment Thank you for allowing us the opportunity to [...] do not hesitate to contact us at [phone] with questions or if additional follow-up information becomes available. This case was reviewed in conjunction with the GI pathology fellow, Patt Duarte M.D. 08/02/2024 2:12 PM EST [facility] Clinical History CONSULT REQUESTED 08/02/2024 2:12 PM EST [facility] Performing Lab Diagnostic interpretation performed at: [facility], [address] [place] [address] CLIA# [id number] [employer] Fin[employer] Supervisor: Jluis Villafuerte MD 08/02/2024 2:12 PM EST [facility] Blocks or Slides MICROSCOPE SLIDE / Unknown 08/01/2024 3:44 PM EST 08/01/2024 3:44 PM EST us Aimee Singh MD SURGICAL PATHOLOGY Final Resul t Performing Organization Address City/State/RUST Co de Phone Number [facility] [address] [place] [address], documented in this encounter Visit Diagnoses Diagnosis Person encountering health services to consult on behalf of another person Other person consulting on behalf of another person documented in this encounter Care Teams Regional Sales Director Relationship Specialty Start Date End Date Raffi Byrd MD PCP - General Internal Medicine 06/20/21 documented as of this encounter
--- OUTSIDE RECORDS SUMMARY | 2025-03-26 14:25 | XMS_ITS | Referral Summary ---
Author Organization [facility] Address [address] [place] [address] Care Team Providers Care Sterilisation Technician Name Role Phone Aimee Singh MD Unavailable [phone] Self, Referred Primary Care Provider Unavailabl e Encounters Date Type Department Care Team Description 02/27/2025 Travel 02/27/2025 8:15 AM EDT - 02/27/2025 8:45 AM EDT Surgery [facility] Invasive Surgery [address] [place] [phone] Phyllis White MD SIGMOIDOSCOPY, FLEXIBLE 02/27/2025 8:19 AM EDT Anesthesia Event [facility] Invasive [address] [place] [address] [facility] 02/27/2025 6:43 AM EDT - 02/27/2025 9:22 AM EDT Hospital Encounter [facility] Invasive Surgery [address] [place] [address] Phyllis White MD Discharge Disposition: Home or Self Care () 02/20/2025 Orders Only [facility] Pre-Anesthesia Clinic [address] [place] [phone] Billie Estrada RN from Last 3 Months Allergies No known active allergies Medications docusate sodium (Colace) 100 mg capsule Take 100 mg by mouth twice a day. 05/15/2024 Active dilTIAZem CD (Cardizem CD) 120 mg 24 hr capsule Take 1 tablet by mouth in the morning. 06/29/2023 Active atorvastatin (Lipitor) 20 mg tablet Take 20 mg by mouth in the morning. Active apixaban (Eliquis) 5 mg tablet Take 5 mg by mouth twice a day. 01/22/2022 Active losartan-hydroch lorothiazide (Hyzaar) 100-12.5 mg tablet Take 1 tablet by mouth in the morning. 06/13/2021 Active HYDROcodone-acet aminophen ([place]head) 5-325 mg tablet Take 1 tablet by mouth every 6 (six) hours if needed for severe pain (8-10 pain score). Active Active Problems Problem Noted Date Diagnosed Date Rectal mass 11/17/2024 Assessment & Plan (02/27/2025 8:17 AM EDT): Relevant Hx: completed KATHRYN Course: here for follow up Daily Update: no issues Today's Plan: flex sig No associated orders from this encounter found during lookback period of 72 hours. Chronic bronchitis 08/03/2024 Resolved Problems Problem Noted Date Diagnosed Date Resolved Date TIA (transient ischemic attack) 08/03/2024 08/03/2024 Social History Tobacco Use Types Packs/Day Years Used Date Smoking Tobacco: Never Smokeless Tobacco: Current Tobacco Cessation:Ready to Q uit: Not Asked; Counseling Given: Not Answered Alcohol Use Standard Drinks/Week Comments Yes 0 (1 standard drink = 0.6 oz pur e alcohol) case of beer a week PHQ-2 Answer Date Recorded Patient Health Questionnaire-2 Score 0 11/17/2024 Sex and Gender Information Value Date Recorded Sex Assigned at Not on file Legal Sex Male 9:14 AM EDT Gender Identity Not on file Sexual Orientation Not on file Last Filed Vital Signs Vital Sign Reading Time Taken Comments Blood Pressure 135/68 02/27/2025 9:00 AM EDT Pulse 77 02/27/2025 9:00 AM EDT Temperature 36 C (96.8 F) 02/27/2025 8:37 AM EDT Respiratory Rate 17 02/27/2025 9:00 AM EDT Oxygen Saturation 100% 02/27/2025 9:00 AM EDT Inhaled Oxygen Concentration - - Weight 86.3 kg (190 lb 4.1 oz) 02/27/2025 7:00 A M EDT Height 177.8 cm (5' 10 ) 02/27/2025 7:00 AM EDT Body Mass Index 27.3 02/27/2025 7:00 AM EDT Plan of Treatment Not on file Procedures Procedure Name Priority Date/Time Associated Diagnosis Comments SIGMOIDOSCOPY, FLEXIBLE 02/27/2025 8:19 AM EDT Rectal mass POCT GLUCOSE METER UNSOLICITED RESULTS Routine 02/27/2025 7:01 AM EDT from Last 3 Months Results * POCT glucose meter (02/27/2025 7:01 AM EDT) [facility] Glucose POC 102 70 - 105 mg/dL 02/27/2025 7:31 AM EDT [facility] Comment:juanita Blood Capillary blood specimen / Unknown 02/27/2025 7:01 AM EDT 02/27/2025 7:31 AM EDT Narrative [facility] - 02/27/2025 7:31 AM EDT Waived Testing in the ED is performed under the ED CLIA certificate #[id number]. us Phyllis White MD LAB BLOOD ORDERABLES Final Result [facility] [address] [place] [address] from Last 3 Months Insurance [employer] Advance Directives * Full Code (Latest Code Status on File) Date Activated Date Inactivated Comments 02/27/2025 6:51 AM 02/27/2025 11:22 AM * Full Code Date Activated Date Inactivated Comments 12/05/2024 10:44 AM 12/05/2024 2:45 PM Care Teams Sterilisation Technician Relationship Specialty Start Date End Date SELF, REFERRED [address] PCP - General 12/05/24 Aimee Singh MD [address] [place] [address] [address] [place] [address] Consulting Physician Oncology 08/01/24
--- OUTSIDE RECORDS SUMMARY | 2025-03-26 14:25 | XMS_ITS | Clinical Summary ---
Author Organization [facility] Address [address] [place] [address] Care Team Providers Care Water Attendant Name Role Phone Aimee Singh MD Unavailable [phone] Self, Referred Primary Care Provider Unavailabl e Allergies No known active allergies Medications docusate [...] in the morning. 06/13/2021 Active HYDROcodone-acet aminophen ([place]send) 5-325 mg tablet Take 1 tablet by [...] Date TIA (transient ischemic attack) 08/03/2024 08/03/2024 Encounters Date Type Department Care Team Description 02/27/2025 8:19 AM EDT Anesthesia Event [facility] Invasive Surgery [address] [place] [address] Ralph Mcneal MD Meehl, [place], MD 02/27/2025 8:15 AM EDT - 02/27/2025 8:45 AM EDT Surgery [facility] Invasive [address] [place] [address] Phyllis White MD SIGMOIDOSCOPY, FLEXIBLE 02/27/2025 6:43 AM EDT - 02/27/2025 9:22 AM EDT Hospital Encounter [address] [place] [address] Phyllis White MD Discharge Disposition: Home or Self Care (01) 02/27/2025 Travel 02/20/2025 Orders Only [facility] Pre-Anesthesia Clinic [address] [place] [phone] Billie Estrada RN from Last 3 Months Social History Tobacco Use Types Packs/Day Years [...] 02/27/2025 7:00 AM EDT Plan of Treatment Health Maintenance Due Date Last Done Comments Medicare Annual Wellness (AWV) 1950 Zoster Vaccines (1 of 2) 1998 Pneumococcal Vaccine: 50+ Years (2 of 2 - PCV) 10/05/2006 10/05/2005 Fall Risk Screening 2013 COVID-19 Vaccine (2023-2 5 season) 2024 06/27/2021, 01/03/2021, 12/13/2020 Influenza Vaccine (Season Ended) 2025 06/27/2021 Depression Screening 11/17/2025 11/17/2024 Adult Tetanus 04/16/2028 04/16/2018, 07/12/1998 HIB Vaccines Aged Out No longer eligi ble based on patient's age to complete this topic HPV Vaccines Aged Out No longer eligi ble based on patient's age to complete this topic IPV Vaccines Aged Out No longer eligi ble based on patient's age to complete this topic Meningococcal B Vaccine Aged Out No l onger eligible based on patient's age to complete this topic Meningococcal Vaccine Aged Out No joan jaqui eligible based on patient's age to complete this topic Rotavirus Vaccines Aged Out No longer eligible based on patient's age to complete this topic Procedures Procedure Name Priority Date/Time Associated Diagnosis Comments SIGMOIDOSCOPY, FLEXIBLE 02/27/2025 8:19 AM EDT Rectal mass POCT GLUCOSE METER UNSOLICITED RESULTS Routine 02/27/2025 7:01 AM EDT from Last 3 Months Results * POCT glucose meter (02/27/2025 7:01 AM EDT) Glucose POC 102 70 - 105 mg/dL 02/27/2025 7:31 AM EDT [facility] Comment:juanita Blood Capillary blood specimen / Unknown 02/27/2025 7:01 AM EDT 02/27/2025 7:31 AM EDT Narrative [facility] - 02/27/2025 7:31 AM EDT Waived Testing in the ED is performed under the ED CLIA certificate #[id number]. us Phyllis White MD LAB BLOOD ORDERABLES Final Result [facility] [address] [place] [address] from Last 3 Months Insurance [employer] MEDICARE Advance Directives * Full Code (Latest Code Status on File) Date Activated Date Inactivated Comments 02/27/2025 6:51 AM 02/27/2025 11:22 AM * Full Code Date Activated Date Inactivated Comments 12/05/2024 10:44 AM 12/05/2024 2:45 PM Care Teams Water Attendant Relationship Specialty Start Date End Date SELF, REFERRED [address] PCP - General 12/05/24 Aimee Singh MD [address] [place] [address] [address] [place] [address] Consulting Physician Oncology 08/01/24
--- OUTSIDE RECORDS SUMMARY | 2025-03-26 14:26 | XMS_ITS | Encounter Summary ---
Author Organization [facility] Address [address] [place] [address] Care Team Providers Care Reading Instructor Name Role Phone Phil [facility] Primary Care Provide r Encounter Details Date Type Department Care Team (Late st Contact Info) Description 12/11/2024 Orders Only [facility] [address] [place] [address] Armen Wakefield DO Adenocarcinoma of rectum (HCC) Social History Tobacco Use Types Packs/Day Years [...] Procedure Name Priority Date/Time Associated Diagnosis Comments AMB REFERRAL TO GASTROENTEROLOGY Routine 12/11/2024 4:04 PM EDT Adenocarcinoma of rectum (HCC) CT CHEST ABDOMEN PELVIS W IV CONTRAST Routine 12/11/2024 3:58 PM EDT Adenocarcinoma of rectum (HCC) documented in this encounter Results * Ambulatory referral to Gastroenterology (12/11/2024 4:04 PM EDT) us Armen Wakefield DO OUTPATIENT REFERRAL ORDERABLES F inal Result * CT CHEST ABDOMEN PELVIS W IV CONTRAST (12/11/2024 3:58 PM EDT) us Armen Wakefield DO IMG CT PROCEDURES Final Result documented in this encounter Visit Diagnoses Diagnosis Adenocarcinoma of rectum (HCC) documented in this encounter Care Teams Reading Instructor Relationship Specialty Start Date End Date Shabnam Villarreal MD [address] [place] [address] PCP - General Behavioral Health 06/05/24 documented as of this encounter
--- OUTSIDE RECORDS SUMMARY | 2025-03-26 14:26 | XMS_ITS | Encounter Summary ---
Author Organization [employer] Address [id number] [address] [place] [address] Care Team Providers Care Commissioned Police Officer Name Role Phone Services, [facility] Primary Care Provider Encounter Details Date Type Department Care Team (Late st Contact Info) Description 12/02/2019 Telephone [facility] [address] [place] [phone] Mildred Fagan Social History Tobacco Use Types Packs/Day Years Used Date Smoking Tobacco: Never Smokeless Tobacco: Current Chew Alcohol Use Standard Drinks/Week Comments Yes 30 (1 standard drink = 0.6 oz pu re alcohol) Childcare Answer Date Recorded Childcare Unknown 03/08/2019 Employment Answer Date Recorded Employment Unknown 03/08/2019 Sex and Gender Information Value Date Recorded [...] Diagnoses Not on filedocumented in this encounter Additional Health Concerns Infection Onset Date Last Indicated Resolved Time Respiratory Rule-Out 12/14/2021 12/14/2021 022 4:30 PM EDT documented as of this encounter Care Teams Commissioned Police Officer Relationship Specialty Start Date End Date Services, [facility] [address] [place], [place] PCP - General Family Medicine 03/22/25 documented as of this encounter
--- OUTSIDE RECORDS SUMMARY | 2025-03-26 14:26 | XMS_ITS | Clinical Summary ---
Author Organization [employer] Address [id number] [address] [place] [address] Care Team Providers Care Space Control Agent Name Role Phone Services, [facility] Primary Care Provider Allergies Active Allergy Reactions Criticality Noted Date Comments No Known Allergies 11/19/2015 Other reaction(s): Unknown Medications atorvastatin (LIPITOR) 20 mg tablet Take 1 tablet (20 mg total) by mouth in the morning. 03/04/2020 Active apixaban (ELIQUIS) 5 mg tablet Take 1 tablet (5 mg total) by mouth in the morning and 1 tablet (5 mg total) before bedtime. 60 tablet 11 01/22/2022 Active losartan-hydroC HLOROthiazide (HYZAAR) 100-12.5 mg per tablet Take 1 tablet by mouth in the morning. Active dilTIAZem CD (CARDIZEM CD) 120 mg 24 hr capsule TAKE 1 CAPSULE BY MOUTH EVERY DAY 90 capsule 3 06/29/2023 Active docusate sodium (COLACE) 100 mg capsule Take 1 capsule (100 mg total) by mouth in the morning and 1 capsule (100 mg total) before bedtime. 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 Pneumonia of right upper lobe due to infectious organism 04/16/2018 Abnormal electrocardiogram 11/19/2015 Paroxysmal atrial fibrillation 11/19/2015 Essential hypertension 11/07/2015 Abnormal EKG Encounters Date Type Department Care Team Description 03/22/2025 6:46 PM EDT - 03/22/2025 9:11 PM EDT Emergency [facility] - Emergency [address] [place] [address] Elvin Del Cid, Alcoholic intoxication without complication (Primary Dx) Discharge Disposition: Home 03/22/2025 Travel from Last 3 Months Immunizations Immunization Administration Dates Next Due Tdap 04/16/2018 Family History Medical History Relation Name Comments Heart disease Father Diabetes Mother Relation Name Status Comments Father Mother Social History Tobacco Use Types Packs/Day Years Used Date Smoking Tobacco: Never Smokeless Tobacco: Current Chew Tobacco Cessation:Ready to Q uit: Not Asked; Counseling Given: Not Answered Alcohol Use Standard Drinks/Week Comments Yes 14 [...] Mass Index 27.98 03/22/2025 6:51 PM EDT Plan of Treatment Health Maintenance Due Date Last Done Comments Tobacco Counseling 1950 Depression Screening 1960 Zoster (Shingles) Vaccine (1 of 2) 1967 Fall Risk Screening 2013 COVID-19 Vaccine (4 - 2023-2 5 season) 2024 06/27/2021, 01/03/2021, 12/13/2020 Influenza Vaccine 05/28/2025 06/27/2021 Tobacco Screening 03/22/2026 03/22/2025 DTaP,Tdap and Td Vaccines (3 - Td or Tdap) 06/04/2030 06/04/2020, 04/16/2018, 07/12/1998 Goals Goal Patient Goal Type Associated Problems Recent Progress Patient-Stated? Author Home General Yes Alice Michael LSW Note: Evaluation of progress towards goal: Safe transition from hospital to home. Medical Devices Implanted Type Area [employer] Instructor Device Identifier Shelf Expiration Date Model / Serial / Lot Lens Iol Ultrasert 17.0d - [id number] - [id number] Implanted:Qty: 1 on 06/29/2023 by Jessica Huggins MD at [facility] Lens Right: Eye [employer] 05/25/2025 [id number] 17.0 / [id number] / NA Lens Iol Ultrasert 18.5d - [id number] - [id number] Implanted:Qty: 1 on 07/13/2023 by Jessica Huggins MD at [facility] Lens Left: Eye [employer] 11/16/2025 [id number] 18.5 / [id number] / NA Pin Pin Description:Pin and plate in arm Procedures Procedure Name Priority Date/Time Associated Diagnosis Comments ECG 12-LEAD STAT 03/22/2025 7:36 PM EDT EXTRA TUBES BLUE TOP Routine 03/22/2025 7:32 PM EDT EXTRA TUBES Routine 03/22/2025 7:32 PM EDT CBC WITH AUTO DIFFERENTIAL STAT 03/22/2025 7:32 PM EDT BASIC METABOLIC PANEL STAT 03/22/2025 7:32 PM EDT ETHANOL STAT 03/22/2025 7:32 PM EDT from Last 3 Months Results * ECG 12 lead (03/22/2025 7:36 PM EDT) 03/22/2025 7:36 PM EDT Narrative [facility] - 03/22/2025 8:54 PM EDT us Elvin Del Cid DO ECG ORDERABLES Final Result Performing Organization Address City/[facility]/ZIP Co de Phone Number [facility] * Light Blue Top (03/22/2025 7:32 PM EDT) Extra Tube Auto Resulted 03/22/2025 9:01 PM EDT [facility] Blood Venous blood / Unknown 03/22/2025 7:32 PM EDT 03/22/2025 7:53 PM EDT us Elvin Del Cid DO LAB BLOOD ORDERABLES Final Re sult [facility] [address] [place] [address], [place] * (ABNORMAL) CBC auto differential (03/22/2025 7:32 PM EDT) WBC 5.1 4 - 11 x10E9/L 03/22/2025 10:58 PM EDT [facility] RBC Count 3.82(L) 4.1 - 5.7 X10E12/L 03/22/2025 10:58 PM [facility] Hemoglobin 12.2(L) 13 - 17 g/dL 03/22/2025 10:58 PM [facility] Hematocrit 36.1(L) 39 - 50 % 03/22/2025 10:58 PM [facility] MCV 95 80 - 100 fL 03/22/2025 10:58 PM [facility] MCH 32.0 27 - 34 pg 03/22/2025 10:58 PM [facility] MCHC 33.9 32 - 36 g/dL 03/22/2025 10:58 PM [facility] RDW 14.0 11.5 - 15 % 03/22/2025 10:58 PM [facility] Platelet Count 176 150 - 450 X10E9/L 03/22/2025 10:58 PM [facility] MPV 9.3 7 - 12 fL 03/22/2025 10:58 PM [facility] Neutrophils % 62.1 % 03/22/2025 10:58 PM [facility] Lymphocytes % 24.8 % 03/22/2025 10:58 PM [facility] Monocytes % 9.1 % 03/22/2025 10:58 PM [facility] Eosinophils % 2.8 % 03/22/2025 10:58 PM [facility] Basophils % 1.2 % 03/22/2025 10:58 PM [facility] Neutrophils Absolute (A) 3.2 1.5 - 6.6 10*3/uL 03/22/2025 10:58 PM [facility] Lymphocytes Absolute 1.3 1.0 - 3.5 10*3/uL 03/22/2025 10:58 PM [facility] Monocytes Absolute 0.5 0.0 - 0.9 10*3/uL 03/22/2025 10:58 PM [facility] Eosinophils Absolute 0.1 0.0 - 0.4 10*3/uL 03/22/2025 10:58 PM [facility] Basophils Absolute 0.1 0.0 - 0.2 10*3/uL 03/22/2025 10:58 PM [facility] Differential Type AUTOMATED DIFFERENTIAL 03/22/2025 10:58 PM EDT [facility] Blood Venous blood / Unknown 03/22/2025 7:32 PM EDT 03/22/2025 7:52 PM EDT us Elvin Willie Del Cid DO LAB BLOOD ORDERABLES Final Re sult [facility] [address] [place] [address], [place] * (ABNORMAL) Ethanol (03/22/2025 7:32 PM EDT) ETHANOL 0.225(H) <=0.080 g/dL 03/22/2025 8:18 PM EDT [facility] Comment: This report is intended for use in clinical monitoring or management of patients. Blood Venous blood / Unknown 03/22/2025 7:32 PM EDT 03/22/2025 7:52 PM EDT us Elvin Willie Del Cid DO LAB BLOOD ORDERABLES Final Re sult Performing Organization Address City/[facility]/ZIP Co de Phone Number [facility] [address] [place] [address], [place] * (ABNORMAL) Basic Metabolic Panel (03/22/2025 7:32 PM EDT) SODIUM 134 134 - 146 mmol/L 03/22/2025 8:07 PM EDT [facility] POTASSIUM 4.0 3.5 - 5.0 mmol/L 03/22/2025 8:07 PM EDT [facility] CHLORIDE 103 98 - 109 mmol/L 03/22/2025 8:07 PM EDT [facility] CARBON DIOXIDE 21(L) 22 - 32 mmol/L 03/22/2025 8:07 PM EDT [facility] ANION GAP 10 5 - 15 mmol/L 03/22/2025 8:07 PM EDT [facility] BLOOD UREA NITROGEN 10 5 - 27 mg/dL 03/22/2025 8:07 PM EDT [facility] CREATININE 0.89 0.70 - 1.20 mg/dL 03/22/2025 8:07 PM EDT [facility] Comment:METHOD TRACEABLE TO IDMS STANDARD GLUCOSE 99 65 - 99 mg/dL 03/22/2025 8:07 PM EDT [facility] CALCIUM 8.7 8.5 - 10.5 mg/dL 03/22/2025 8:07 PM EDT [facility] EGFR Non-Race Dependent 89 >=60 ml/min/1.7 3sq.m 03/22/2025 8:07 PM EDT [facility] Comment: eGFR not reported due to non-numeric value for Creatinine. Reported eGFR is based on the CKD-EPI 2020 equation that does not use a race coefficient. Blood Venous blood / Unknown 03/22/2025 7:32 PM EDT 03/22/2025 7:52 PM EDT us Elvin Del Cid DO LAB BLOOD ORDERABLES Final Re sult [facility] [address] [place] [address], from Last 3 Months Insurance [facility] MEDICARE [employer] Advance Directives * Full Code (Latest Code Status on File) Date Activated Date Inactivated Comments 12/01/2019 3:13 PM 12/02/2019 4:45 PM * Full Code Date Activated Date Inactivated Comments 12/01/2019 1:18 PM 12/01/2019 3:13 PM * Full Code Date Activated Date Inactivated Comments 04/16/2018 8:43 PM 04/19/2018 4:43 PM Care Teams Space Control Agent Relationship Specialty Start Date End Date [facility], [facility] [address] [place] PCP - General Family Medicine 03/22/25
--- OUTSIDE RECORDS SUMMARY | 2025-03-26 14:26 | XMS_ITS | Encounter Summary ---
Author Organization [employer] Address [id number] [address] [place] [address] Care Team Providers Care Tip Banding Machine Operator Name Role Phone Services, [facility] Primary Care Provider Encounter Details Date Type Department Care Team (Latest Contact Info) Description 03/22/2025 Travel Social History Tobacco Use Types Packs/Day Years [...] filedocumented in this encounter Additional Health Concerns Assessment Noted Time PHQ-9 Depression Total Score: 2 01/08/20 22 8:55 AM EDT A Body Mass Index follow-up plan has been documented for the patient 01/07/2022 12:32 PM EDT documented as of this encounter Care Teams Tip Banding Machine Operator Relationship Specialty Start Date End Date [facility], [facility] [address] [place], [place] PCP - General Family Medicine 03/22/25 documented as of this encounter
[2025-03-26 14:56] LABS: Alanine Aminotransferase 21 U/L (16-63); Albumin Globulin Ratio 0.7; Albumin Level 3.6 g/dL (3.4-5.0); Alkaline Phosphatase 180 U/L (46-116); Anion Gap 15.6; Aspartate Amino Transferase 25 U/L (15-37); BUN Creatinine Ratio 16.9; Bilirubin Total 0.9 mg/dL (0.2-1.0); Calcium 9.5 mg/dL (8.5-10.1); Carbon Dioxide 25.9 mmol/L (21.0-32.0); Chloride 103 mmol/L (98-107); Estimated GFR (African America >60 (>=60 mL/min/1.73m^2); Estimated GFR (Non-African Ame >60 (>=60 mL/min/1.73m^2); Globulin 4.9 g/dL; Glucose 96 mg/dL (74-106); Potassium 4.5 mmol/L (3.5-5.1); Sodium 140 mmol/L (136-145); Total Protein 8.5 g/dL (6.4-8.2)
[2025-03-26 15:01] LABS: Basophils Absolute Auto 0.1 10^3/uL (0.0-0.1); Basophils Percent Auto 0.9 % (0.2-2.0); Eosinophils Absolute Auto 0.2 10^3/uL (0.0-0.7); Eosinophils Percent Auto 2.9 % (0.9-7.0); Hematocrit 41.9 % (42.0-54.0); Hemoglobin 14.2 g/dL (14.0-18.0); Immature Granulocytes Abs Auto 0.02 10^3/uL (0.00-0.03); Immature Granulocytes Pct Auto 0.3 % (0.0-0.5); Lymphocytes Absolute Auto 1.5 10^3/uL (1.2-3.8); Lymphocytes Percent Auto 21.5 % (20.5-60.0); Mean Corpuscular HGB Conc 33.9 g/dL (29.9-35.2); Mean Corpuscular Hemoglobin 32.3 pg (25.9-34.0); Mean Corpuscular Volume 95.4 fL (80.0-94.0); Mean Platelet Volume 10.8 fL (9.5-13.5); Monocytes Absolute Auto 0.6 10^3/uL (0.3-0.8); Neutrophils Absolute Auto 4.6 10^3/uL (1.4-6.5); Neutrophils Percent Auto 66.4 % (43.0-75.0); Platelet Count 191 10^3/uL (150-450); Red Blood Count 4.39 10^6/uL (4.70-6.10); Red Cell Distribution Width 13.6 % (11.0-15.0); White Blood Count 6.9 10^3/uL (4.0-11.0)
--- NOTE | 2025-03-26 16:26 | PE_ITS ---
The [address] [address] Patient Name: ROLDAN COTE MRN: [id number] date: 1950 Sex: M Assigned Patient Location: PETCT Current Patient Location: Accession/Order Number: [id number] Exam Date: 03/27/2025 11:51 Report Date: 03/27/2025 12:29 At the request of: NEYMAR LERMA MD Procedure: PET skull to mid thigh PET/CT WITH FUSION COMPARISON: 07/17/[address] chest, abdomen and pelvis 02/20/2025 CLINICAL DATA: Restaging of colorectal cancer. Increasing intrathoracic adenopathy and left pulmonary nodularity on recent CT. Following the intravenous administration of 11.85 mCi of FDG, SPECT imaging in 3 planes was performed from the level the orbits through the groin. Patient's blood glucose level at the time of injection was 90 mg/dL. Oral and CT was also performed for anatomic localization. The PET and CT images were fused. This CT exam was performed using one or more following dose reduction techniques: Automated exposure control, adjustment of the mA and/or kV according to patient size, or use of iterative reconstruction technique. NECK: No enlarged or hypermetabolic cervical lymph nodes are visualized. CHEST: No hypermetabolic mediastinal, hilar or axillary lymph nodes are visualized. Respiratory motion on the CT study slightly limits evaluation of lung parenchyma. Groundglass parenchymal changes as well as scarring and atelectasis are present in both lungs, greatest at the right upper lobe. There is subtle increased FDG uptake associated with a developing band of consolidation at the lingula adjacent to the major fissure laterally with SUV of 2.8. This is likely benign. No other abnormal pulmonary uptake is seen including at the sites of the small pulmonary nodules. ABDOMEN/PELVIS: There are no FDG avid hepatic or adrenal lesions. No enlarged or hypermetabolic abdominal or pelvic lymph nodes are identified. The inguinal lymph nodes are similar in appearance on the CT images however there is decrease in SUV from maximum of 3.7 on the right on the prior to 2.6 on the current study. The segment of wall thickening and hypermetabolism at the proximal rectum at the time of the prior PET study shows no residual abnormality on today's CT or PET images. There is still slight increase FDG uptake near the anus with SUV of 5.6, previously 4.5. This might be physiologic. PET/PET skull to mid thigh IMPRESSION: SIGNIFICANT THERAPY RESPONSE INVOLVING PATIENT'S PRIMARY RECTAL NEOPLASM. SIMILAR SIZE INGUINAL LYMPH NODES WITH INTERVAL DECREASE IN FDG UPTAKE. NO OTHER PATHOLOGIC ADENOPATHY INCLUDING THE MEDIASTINAL AND HILAR LYMPH NODES WHICH ARE SLIGHTLY LARGER ON RECENT CHEST CT. THESE MIGHT BE REACTIVE. BILATERAL PARENCHYMAL CHANGES AND NODULARITY, DESCRIBED. CT FOLLOW-UP COULD BE OBTAINED, WARRANTED. Impression dictated by: Arianna Vega M.D. 03/27/2025 12:29 PM Dictation Location: [place] [address] Electronically authenticated by: [id number] Y Date: 03/27/2025 12:29
[2025-03-27 04:07] LABS: CEA 6.4 ng/mL (0.0-4.7)
== END 2025-03-26 14:19 | disposition home or self-care (01) ==
PROVIDERS: Visit Provider Internal Medicine Hematology & Oncology
DX: C20 Malignant neoplasm of rectum (principal); D64.9 Anemia, unspecified; R11.2 Nausea with vomiting, unspecified; D50.9 Iron deficiency anemia, unspecified; K90.9 Intestinal malabsorption, unspecified; R05.1 Acute cough
CPT/HCPCS: 36415; 78815; 80053; 82378; 83735; 85025; A9552

== ENCOUNTER 2025-04-03 07:47 | Outpatient (RCR) | payer MEDICARE, SELFPAY | END 2025-04-04 08:11 | disposition home or self-care (01) | LOC: HEMC 07:47 | PROVIDERS: Visit Provider Internal Medicine Hematology & Oncology | DX: C20 Malignant neoplasm of rectum (principal); D64.9 Anemia, unspecified; D50.9 Iron deficiency anemia, unspecified; K90.9 Intestinal malabsorption, unspecified; R05.1 Acute cough | CPT/HCPCS: G0463 ==

== ENCOUNTER 2025-05-01 07:52 | Outpatient (RCR) | payer MEDICARE, SELFPAY ==
[2025-05-01] MEDS: HEPARIN SODIUM (PORCINE) PF LOCK FLUSH 500 UNIT/5 ML SYRINGE IV (10:00)
== END 2025-05-27 23:59 | disposition home or self-care (01) ==
LOC: HEMC 07:52
PROVIDERS: Visit Provider Internal Medicine Hematology & Oncology
DX: C20 Malignant neoplasm of rectum (principal); D64.9 Anemia, unspecified; R11.2 Nausea with vomiting, unspecified; D50.9 Iron deficiency anemia, unspecified; R05.1 Acute cough
CPT/HCPCS: 96523; J1642

== ENCOUNTER 2025-05-29 09:47 | Outpatient (RCR) | payer MEDICARE, SELFPAY | END 2025-06-26 23:59 | disposition home or self-care (01) | LOC: HEMC 09:47 | PROVIDERS: Visit Provider Internal Medicine Hematology & Oncology | DX: C20 Malignant neoplasm of rectum (principal); D64.9 Anemia, unspecified; R11.2 Nausea with vomiting, unspecified; D50.9 Iron deficiency anemia, unspecified; K90.9 Intestinal malabsorption, unspecified; R05.1 Acute cough | CPT/HCPCS: 96523 ==

== ENCOUNTER 2025-07-03 13:04 | Outpatient (RCR) | payer MEDICARE, SELFPAY ==
[2025-07-03 13:36] LABS: Hematocrit 38.6 % (42.0-54.0); Hemoglobin 13.2 g/dL (14.0-18.0); Immature Granulocytes Abs Auto 0.02 10^3/uL (0.00-0.03); Immature Granulocytes Pct Auto 0.4 % (0.0-0.5); Lymphocytes Absolute Auto 1.3 10^3/uL (1.2-3.8); Mean Corpuscular HGB Conc 34.2 g/dL (29.9-35.2); Mean Corpuscular Hemoglobin 33.2 pg (25.9-34.0); Mean Corpuscular Volume 97.0 fL (80.0-94.0); Platelet Count 178 10^3/uL (150-450); Red Blood Count 3.98 10^6/uL (4.70-6.10); White Blood Count 5.7 10^3/uL (4.0-11.0)
[2025-07-03 14:33] LABS: Alanine Aminotransferase 19 U/L (16-63); Albumin Globulin Ratio 0.7; Albumin Level 3.4 g/dL (3.4-5.0); Alkaline Phosphatase 154 U/L (46-116); Anion Gap 12.2; Aspartate Amino Transferase 24 U/L (15-37); Blood Urea Nitrogen 9.0 mg/dL (7.0-18.0); Calcium 9.3 mg/dL (8.5-10.1); Carbon Dioxide 27.9 mmol/L (21.0-32.0); Chloride 102 mmol/L (98-107); Estimated GFR (African America >60 (>=60 mL/min/1.73m^2); Estimated GFR (Non-African Ame >60 (>=60 mL/min/1.73m^2); Globulin 4.8 g/dL; Glucose 100 mg/dL (74-106); Magnesium 1.9 mg/dL (1.8-2.4); Potassium 4.1 mmol/L (3.5-5.1); Sodium 138 mmol/L (136-145); Total Protein 8.2 g/dL (6.4-8.2)
[2025-07-04 04:08] LABS: CEA 4.3 ng/mL (0.0-4.7)
== END 2025-07-27 23:59 | disposition home or self-care (01) ==
LOC: HEMC 13:04
PROVIDERS: Visit Provider Internal Medicine Hematology & Oncology
DX: C20 Malignant neoplasm of rectum (principal); D64.9 Anemia, unspecified; R11.2 Nausea with vomiting, unspecified; D50.9 Iron deficiency anemia, unspecified; K90.9 Intestinal malabsorption, unspecified; R05.1 Acute cough; Z79.01 Long term (current) use of anticoagulants; F17.220 Nicotine dependence, chewing tobacco, uncomplicated; R91.1 Solitary pulmonary nodule
CPT/HCPCS: 36591; 80053; 82378; 83735; 85025; G0463

== ENCOUNTER 2025-09-10 14:46 | Outpatient (OUT) | payer MEDICARE, SELFPAY ==
--- NOTE | 2025-09-10 17:21 | PE_ITS ---
The [address] [address] Patient Name: ROLDAN COTE MRN: [id number] date: 1950 Sex: M Assigned Patient Location: PETCT Current Patient Location: Accession/Order Number: [id number] Exam Date: 09/10/2025 16:12 Report Date: 09/11/2025 10:49 At the request of: NEYMAR LERMA MD Procedure: PET skull to mid thigh PET/CT WITH FUSION COMPARISON: 03/26/2025 and 07/17/2024 CLINICAL DATA: Restaging of rectal cancer. Following the intravenous administration of 8.34 mCi of FDG, SPECT imaging in 3 planes was performed from the level the orbits through the groin. The patient's blood glucose level at the time of injection was 107 mg/dL. Spiral unenhanced CT was also performed for anatomic localization. The PET and CT images were fused. This CT exam was performed using one or more following dose reduction techniques: Automated exposure control, adjustment of the mA and/or kV according to patient size, or use of iterative reconstruction technique. NECK: No enlarged or hypermetabolic cervical lymph nodes are seen. There is some physiologic oral cavity uptake. CHEST: No hypermetabolic mediastinal, hilar or axillary lymphadenopathy is seen. There are continued bilateral parenchymal changes, greatest at the right upper lobe. Similar associated sub-threshold increased FDG uptake is seen. The small opacity with slight increased FDG uptake within the lingula near the fissure on the prior has resolved. There is no developing abnormal pulmonary nodularity. The heart is mildly prominent. ABDOMEN/PELVIS: No FDG avid hepatic or adrenal lesions are identified. The inguinal lymph nodes appear slightly smaller though there is slight increase FDG uptake with maximum SUV on the right of 4.4 currently, previously 2.6. No developing enlarged or hypermetabolic abdominal or pelvic lymph nodes are seen. There is slight decrease in size and intensity of uptake at the anal rectal junction with SUV of 5 versus 5.6 on the comparison. There is a developing segment of right rectal wall thickening approximately 3 cm above it on the CT images. There is also hypermetabolism at that site with maximum SUV approaching 17. This correlates with the area of hypermetabolism on the PET study from 2023 and may be recurrence. There is physiologic activity involving the urinary tract and bowel. PET/PET skull to mid thigh IMPRESSION: DECREASING SIZE AND SUV UPTAKE NEAR THE ANUS. NEW SEGMENT OF RECTAL WALL THICKENING AND HYPERMETABOLISM SINCE THE MOST RECENT COMPARISON. THERE WAS HYPERMETABOLISM IN THIS AREA ON THE PET SCAN FROM 2023. THIS COULD BE RECURRENCE. CONTINUED INGUINAL LYMPH NODES WITH SLIGHT INTERVAL INCREASE IN FDG UPTAKE, DESCRIBED. Impression dictated by: Arianna Vega M.D. 09/11/2025 10:49 AM Dictation Location: [place] [address] Electronically authenticated by: [id number] Y Date: 09/11/2025 10:49
== END 2025-09-10 14:47 | disposition home or self-care (01) ==
LOC: PETCT 14:46
PROVIDERS: Visit Provider Internal Medicine Hematology & Oncology
DX: C20 Malignant neoplasm of rectum (principal); D64.9 Anemia, unspecified; R11.2 Nausea with vomiting, unspecified; Z51.11 Encounter for antineoplastic chemotherapy; D50.9 Iron deficiency anemia, unspecified; K90.9 Intestinal malabsorption, unspecified; R05.1 Acute cough
CPT/HCPCS: 78815; A9552

== ENCOUNTER 2025-09-25 08:17 | Outpatient (RCR) | payer MEDICARE, SELFPAY ==
[2025-08-29 11:13] LABS: Hematocrit 39.5 % (42.0-54.0); Hemoglobin 13.2 g/dL (14.0-18.0); Immature Granulocytes Abs Auto 0.01 10^3/uL (0.00-0.03); Immature Granulocytes Pct Auto 0.2 % (0.0-0.5); Lymphocytes Absolute Auto 1.7 10^3/uL (1.2-3.8); Mean Corpuscular HGB Conc 33.4 g/dL (29.9-35.2); Mean Corpuscular Hemoglobin 32.0 pg (25.9-34.0); Mean Corpuscular Volume 95.9 fL (80.0-94.0); Platelet Count 239 10^3/uL (150-450); Red Blood Count 4.12 10^6/uL (4.70-6.10); White Blood Count 6.4 10^3/uL (4.0-11.0)
[2025-08-29] MEDS: HEPARIN SODIUM (PORCINE) PF LOCK FLUSH 500 UNIT/5 ML SYRINGE IV (11:24)
[2025-08-29 11:33] LABS: Alanine Aminotransferase 20 U/L (16-63); Albumin Globulin Ratio 0.7; Albumin Level 3.2 g/dL (3.4-5.0); Alkaline Phosphatase 149 U/L (46-116); Anion Gap 12.2; Aspartate Amino Transferase 23 U/L (15-37); Blood Urea Nitrogen 10.0 mg/dL (7.0-18.0); Calcium 8.8 mg/dL (8.5-10.1); Carbon Dioxide 28.2 mmol/L (21.0-32.0); Chloride 103 mmol/L (98-107); Estimated GFR (African America >60 (>=60 mL/min/1.73m^2); Estimated GFR (Non-African Ame >60 (>=60 mL/min/1.73m^2); Globulin 4.5 g/dL; Glucose 113 mg/dL (74-106); Magnesium 1.9 mg/dL (1.8-2.4); Potassium 4.4 mmol/L (3.5-5.1); Sodium 139 mmol/L (136-145); Total Protein 7.7 g/dL (6.4-8.2)
[2025-08-30 04:08] LABS: CEA 3.7 ng/mL (0.0-4.7)
[2025-09-25] MEDS: HEPARIN SODIUM (PORCINE) PF LOCK FLUSH 500 UNIT/5 ML SYRINGE IV (09:56)
== END 2025-09-26 23:59 | disposition home or self-care (01) ==
LOC: HEMC 08:17
PROVIDERS: Visit Provider Internal Medicine Hematology & Oncology
DX: C20 Malignant neoplasm of rectum (principal); D64.9 Anemia, unspecified; R11.2 Nausea with vomiting, unspecified; D50.9 Iron deficiency anemia, unspecified; K90.9 Intestinal malabsorption, unspecified; R91.1 Solitary pulmonary nodule; K92.1 Melena; F17.220 Nicotine dependence, chewing tobacco, uncomplicated
CPT/HCPCS: 36591; 80053; 82378; 83735; 85025; G0463; J1642